=== PATIENT | female | born 1990 | race Caucasian/White ===

== ENCOUNTER 2017-03-24 15:23 | Inpatient (IN) | payer MEDICARE, BC ==
[2017-03-24 14:02] VITALS: BP 114/62; PULSE 65; RESP 16; TEMP 96.7; O2SAT 100
[~2017-03-24 15:23] MED LIST: ASPI1TAB7 PO; CARD240C6 PO; CLON.1T TD; CLON.2 PO; DOCU1CAP39 PO; LACTCAP7 PO; LISI-363 PO; LOES1TAB2 PO; MAGN400 PO; METO100T PO; MINO2.5 PO; OMEP20TA PO; ONDA4 PO; ONDANSETRON HCL 4 MG/2 ML VIAL IV PUSH ONE; PERC2.5T PO; PRED5 PO; PROPOFOL 200 MG/20 ML AMP IV ONE; ROPI0.25 PO; SODI453. PO; VITA20003 PO; VITA25TA5 PO
[2017-03-24] MEDS ORDERED: ESTROGENS CONJUGATED VAG CREA 15 APPL/30 GM TUBE ONE (17:13)
[2017-03-24] MEDS ORDERED: ceFAZolin 1,000 MG/NS 100 ML IV SCH ×2 (17:30)
[2017-03-24] MEDS ORDERED: ceFAZolin 1,000 MG/NS 100 ML IV ONE ×2 (17:45)
--- NOTE | 2017-03-24 17:59 | HHI.HP ---
HPI Chief Complaint Excessive uterine bleeding with hemoglobin at marketing operations consultant office 4.8 today renal failures s/p five kidney transplants Date Seen: Mar 24, 2017 Time Seen: 17:43 Travel History International Travel<30 Days: No Contact w/Intl Traveler<30Days: No Known Affected Area: No History of Present Illness HPI 27 yo swf G0 with 2 months of extremely heavy bleeding and clots. Prior to that , while on peritoneal dialysis she had over a year of amenorrhea. She has a history of CVA and is on eloquist and aspirin. Despite the placement of two progestin IUDs, we have not been able to slow down this bleeding. today's hgb was 4.8. Her current kidney has 10% function and she voids about 1500 cc daily and has hemodialysis twice weekly. She recent had extensive surgery on left leg to debride an infection and is wearing a bandage and brace. The brace can be removed for surgery. She has no fever, chills, nausea, vomiting or diarrhea. She is not in severe pain. She thinks the second IUD recently placed was also expelled. She is continuing to bleed heavily with clots. Sheis on bactrim every other day, valcyte and cresmemba for antibacterial, antiviral and antifungal prophylaxis. She has never had an abnormal pap or STD. She is not involved. She has graduated from [employer]. Para: 0 : 0 Last Menstrual Period: Mar 24, 2017 History Past Medical History Narrative Medical hypothyroidism hypertension GERD endstage renal failure history of CVA in 2012 hemodialysis dependent. history of chronic steroid therapy. Allergies-Medications (Allergen,Severity, Reaction): Coded Allergies: No Known Allergies (Verified , 10/23/14) Home Meds Reported Medications Sodium Polystyrene Sulfonate (Kayexalate) Pow3-5 Tsp PO DIRECTED 10/23/14 Ondansetron Hcl (Zofran 4 Mg Tab)4 Mg Tab4 Mg PO Q6 PRN (NAUSEA) 10/23/14 Ropinirole Hydrochloride (Ropinirole HCl)0.25 Mg Tab0.25 Mg PO DAILY 10/23/14 Lactobacillus (Probiotic) Cap1 Cap PO DAILY 10/23/14 Oxycodone W/Acetaminophen (Percocet 2.5/325)Oxycodone 2.5/325 Acetaminophen Tab1 Tab PO Q6H PRN (PAIN) 10/23/14 Prednisone (Deltasone 5 mg Tab)5 Mg Tab5 Mg PO DAILY 10/23/14 Pyridoxine Hcl (Vitamin B-6)Unknown Strength Tab1 Tab PO DAILY 10/23/14 Cholecalciferol (Vitamin D)2,000 Unit Tab2,000 Units PO DAILY 10/23/14 Norethin Acet & Estrad-Fe (Loestrin Fe 10/15)Unknown Strength Pack1 Tab PO DAILY 10/23/14 Docusate Sodium (Colace 100 Mg Cap)100 Mg [id number] Mg PO DAILY 10/23/14 Aspirin 81 mg Tab 81 Mg Tab81 Mg PO DAILY 10/23/14 Minoxidil (Loniten 2.5 Mg Tab)2.5 Mg Tab2.5 Mg PO BID 10/23/14 Lisinopril 20 mg 20 Mg Tab20 Mg PO DAILY 10/23/14 Clonidine 0.2 mg (Catapres 0.2 mg)0.2 Mg Tab1 Tab PO DAILY PRN (SYSTOLIC B/P > 170) 10/23/14 Metoprolol Tartrate 100 mg 100 Mg Gun297 Mg PO BID 10/23/14 Clonidine Hcl (Ppgdvcog-Oig-9)Unknown Strength Dis1 Patch TD WEEKLY WEEKLY ON Wednesdays10/23/14 Diltiazem CD 240 mg (Cardizem CD 240 mg)240 Mg/24 Cap2 Cap PO BID 10/23/14 Omeprazole 20 mg 20 Mg Tab20 Mg PO BID 04/30/11 Magnesium Oxide (Mag-Ox 400)400 Mg Feo547 Mg PO BID 04/30/11 Review of Systems General / Constitutional: No: Fever, Weight Gain, Chills, Other Eyes: No: Diploplia, Blurred Vision, Visual changes, Pain, Photophobia HENT: Lightheadedness Cardiovascular: Tachycardia Genitourinary: Menorrhagia Musculoskeletal: Limited ROM Skin: Dryness, Change in Pigmentation Physical Exam Narrative GENERAL: ashen, ovalles faced pleaseant young woman with low hemoglobin gums and nail bed pale SKIN: Warm and dry. HEAD: Normocephalic and atraumatic. EYES: No scleral icterus. No injection or drainage. ENT: No nasal drainage noted. Mucous membranes pink. Airway patent. NECK: Supple, trachea midline. No JVD. CARDIOVASCULAR: Regular rate and rhythm without murmurs, gallops, or rubs. RESPIRATORY: Breath sounds equal bilaterally. No accessory muscle use. BREASTS: Bilateral exam showed no masses , no retractions, no nipple discharge. many scars External Genitalia: intact and normal in appearance BUS normal cervix nullip with clots EXTREMITIES: bronze pigment BACK: Nontender without obvious deformity. No CVA tenderness. NEUROLOGICAL: Awake and alert. Motor and sensory grossly within normal limits. Five out of 5 muscle strength in all muscle groups. Normal speech. Data Data Vital Signs Reviewed: Yes Orders Estrogens Conjugated Vag Cream (Premarin (03/24/17 17:13) Hgb & Hct (03/24/17 17:00) Red Blood Cells (Rbc) (03/24/17 17:00) ^ Other Nursing Orders (03/24/17 17:00) Comprehensive Metabolic Panel (03/25/17 06:00) Act Partial Throm Time (Ptt) (03/25/17 06:00) Prothrombin Time / Inr (Pt) (03/25/17 06:00) Vital Signs (Adult) LIZZ.Q4H (03/24/17 17:00) ^ Other Nursing Orders (03/24/17 17:00) ^ Other Nursing Orders (03/24/17 17:00) ^ Other Nursing Orders (03/24/17 17:00) ^ Other Nursing Orders (03/24/17 17:00) Type And Screen (03/24/17 17:00) Diet Npo (03/24/17 Dinner) Cefazolin Inj (Ancef Inj) (03/24/17 17:30) Assessment/Plan Assessment and Plan transfuse now for D & C with [facility] hospitalist support (or shoe cobbler ) post op dialysis in . Ayala Espinoza MD Mar 24, 2017 17:59
[2017-03-24] MEDS ORDERED: LACTATED RINGER'S 1000 ML INJ 1,000 ML IV SCH ×2 (18:00→21:21)
[2017-03-24 18:40] VITALS: PULSE 61
[2017-03-24 18:50] LABS: AUTOMATED NEUTROPHIL # 2.3 TH/MM3 (1.8-7.7); BASOPHIL % 0.6 % (0.0-2.0); EOSINOPHIL % 0.1 % (0.0-4.0); LYMPH % 12.4 % (9.0-44.0); LYMPHOCYTE # 0.3 TH/MM3 (1.0-4.8); MEAN CELL VOLUME 98.2 FL (80.0-100.0); MEAN CORPUSCULAR HEMOGLOBIN 32.2 PG (27.0-34.0); MEAN CORPUSCULAR HGB CONC 32.8 % (32.0-36.0); MONO % 5.8 % (0.0-8.0); NEUT % 81.1 % (16.0-70.0); PLATELET COUNT 327 TH/MM3 (150-450); RED BLOOD COUNT 1.32 MIL/MM3 (4.00-5.30); RED CELL DISTRIBUTION WIDTH 23.2 % (11.6-17.2); WHITE BLOOD COUNT 2.8 TH/MM3 (4.0-11.0)
[2017-03-24 18:54] LABS: HEMO FLAGS AUTO DIFF
[2017-03-24 18:56] LABS: HEMATOCRIT 12.9 % (35.0-46.0)
[2017-03-24 19:34] LABS: OVALOCYTES 1+ (NORMAL); PLATELET ESTIMATE SMEAR NORMAL (NORMAL); PLATELET MORPHOLOGY NORMAL (NORMAL); SCAN/DIFF AUTO DIFF CONFIRMED
[2017-03-24 19:37] VITALS: BP 107/56; PULSE 61; RESP 16; TEMP 97.8; O2SAT 100
[2017-03-24 19:49] VITALS: BP 106/57; PULSE 60; RESP 16; TEMP 97.9; O2SAT 100
[2017-03-24] MEDS ORDERED: VANCOMYCIN HCL 1000 MG VIAL OTHER ONE (20:52)
--- NOTE | 2017-03-24 21:29 | PD.OP ---
Operative Report Date of Surgery: Mar 24, 2017 Preoperative Diagnosis: menorrhagia renal failure anticoagulation Postoperative Diagnosis: same with submucosal fibroids Procedure: D & D Bienvenido Guzmán Anesthesia: get Surgeon: Ayala Espinoza Metal Tank Builder(s): [id number] Operation and Findings: Ayala Cisneros MD Mar 24, 2017 21:29
[2017-03-24] MEDS ORDERED: SODIUM CHLORIDE 0.9% FLUSH 10 ML FLUSH IV FLUSH PRN (21:30)
[2017-03-24] MEDS ORDERED: ACETAMINOPHEN/HYDROcodone 325 MG/5 MG TAB PO PRN (21:30)
[2017-03-24] MEDS ORDERED: LORazepam 0.5 MG TAB PO PRN (21:30)
[2017-03-24] MEDS ORDERED: ONDANSETRON HCL 4 MG/2 ML VIAL IVP PRN (21:30)
[2017-03-24] MEDS ORDERED: HYDROCORTISONE SOD SUCCINATE 100 MG VIAL IV PUSH ONE (21:30)
[2017-03-24] MEDS ORDERED: diphenhydrAMINE HCL 25 MG CAP PO PRN (21:30)
[2017-03-24] MEDS ORDERED: fentaNYL CITRATE 250 MCG/5 ML AMP ONE (21:35)
[2017-03-24] MEDS ORDERED: MIDAZOLAM HCL 2 MG/2 ML VIAL ONE (21:35)
[2017-03-24] MEDS ORDERED: VANCOMYCIN 1,000 MG/NS 250 ML IV ONE ×2 (21:53)
[2017-03-24] MEDS ORDERED: DO NOT ADM ANY ANTICOAGULANT DRUGS PRN (22:30)
[2017-03-24] MEDS ORDERED: MORPHINE SULFATE 4 MG/ML INJ ONE (22:41)
--- NOTE | 2017-03-24 23:36 | PD.CONS ---
HPI Service Critical Care Medicine Consult Requested By Primary Care Physician Alcides Monzon MD (Paul) History of Present Illness 27-year-old female G0 with 2 months history of extremely heavy bleeding and clots. She has a history of CVA and is on Eliquis and aspirin. Despite the placement of two progestin IUDs, there was no effect to slow down this bleeding. Yesterday her hemoglobin was 4.8. So she was taken emergently to operating room for hysteroscopy with endometrial ablation/Novasure. Due to severe anemia and high risk of bleed she is admitted to ICU postoperatively for type monitoring of her H&H and vital signs. Review of Systems Constitutional: DENIES: Diaphoretic episodes, Fatigue, Fever, Weight gain, Weight loss, Chills, Dizziness, Change in appetite, Night Sweats Endocrine: COMPLAINS OF: Abnorml menstrual pattern, DENIES: Heat/cold intolerance, Polydipsia, Polyuria, Polyphagia Eyes: DENIES: Blurred vision, Diplopia, Eye inflammation, Eye pain, Vision loss , Photosensitivity, Double Vision Ears, nose, mouth, throat: DENIES: Tinnitus, Hearing loss, Vertigo, Nasal discharge, Oral lesions, Throat pain, Hoarseness, Ear Pain, Running Nose, Epistaxis, Sinus Pain, Toothache, Odynophagia Respiratory: DENIES: Apneas, Cough, Snoring, Wheezing, Hemoptysis, Sputum production, Shortness of breath Cardiovascular: DENIES: Chest pain, Palpitations, Syncope, Dyspnea on Exertion , PND, Lower Extremity Edema, Orthopnea, Claudication Gastrointestinal: COMPLAINS OF: Abdominal pain, DENIES: Black stools, Bloody stools, Constipation, Diarrhea, Nausea, Vomiting, Difficulty Swallowing, Anorexia Genitourinary: COMPLAINS OF: Abnormal vaginal bleeding, DENIES: Dysmenorrhea, Dyspareunia, Sexual dysfunction, Urinary frequency, Urinary incontinence, Urgency, Hematuria, Dysuria, Nocturia, Vaginal discharge Musculoskeletal: DENIES: Joint pain, Muscle aches, Stiffness, Joint Swelling, Back pain, Neck pain Integumentary: DENIES: Abnormal pigmentation, Pruritus, Rash, Nail changes, Breast masses, Breast skin changes, Nipple discharge Hematologic/lymphatic: DENIES: Bruising, Lymphadenopathy Immunologic/allergic: DENIES: Eczema, Urticaria Neurologic: DENIES: Abnormal gait, Headache, Localized weakness, Paresthesias, Seizures, Speech Problems, Tremor, Poor Balance Psychiatric: DENIES: Anxiety, Confusion, Mood changes, Depression, Hallucinations, Agitation, Suicidal Ideation, Homicidal Ideation, Delusions Past Family Social History Allergies: Coded Allergies: No Known Allergies (Verified , 10/23/14) Past Medical History Hypothyroidism Hypertension GERD Endstage renal failure history of CVA in 2013 Hemodialysis dependent. History of chronic steroid therapy. Past Surgical History Multiple renal transplants Reported Medications Reported Meds & Active Scripts Active Reported Kayexalate (Sodium Polystyrene Sulfonate) Pow 3-5 Tsp PO DIRECTED Zofran 4 Mg Tab (Ondansetron Hcl) 4 Mg Tab 4 Mg PO Q6 PRN Ropinirole HCl (Ropinirole Hydrochloride) 0.25 Mg Tab 0.25 Mg PO DAILY Probiotic (Lactobacillus) Cap 1 Cap PO DAILY Percocet 2.5/325 (Oxycodone/Acetaminophen) Oxycodone 2.5/325 Acetaminophen Tab 1 Tab PO Q6H PRN Deltasone 5 mg Tab (Prednisone) 5 Mg Tab 5 Mg PO DAILY Vitamin B-6 (Pyridoxine Hcl) Unknown Strength Tab 1 Tab PO DAILY Vitamin D (Cholecalciferol) 2,000 Unit Tab 2,000 Units PO DAILY Loestrin Fe 10/15 (Ethinyl Estradiol/Norethindron/Iron) Unknown Strength Pack 1 Tab PO DAILY Colace 100 Mg Cap (Docusate Sodium) 100 Mg Cap 100 Mg PO DAILY Aspirin 81 mg Tab (Aspirin) 81 Mg Tab 81 Mg PO DAILY Loniten 2.5 Mg Tab (Minoxidil) 2.5 Mg Tab 2.5 Mg PO BID Lisinopril 20 mg (Lisinopril) 20 Mg Tab 20 Mg PO DAILY Catapres 0.2 mg (Clonidine HCl) 0.2 Mg Tab 1 Tab PO DAILY PRN Metoprolol Tartrate 100 Mg Tab 100 Mg PO BID Uuobprem-Hwq-1 (Clonidine Hcl) Unknown Strength Dis 1 Patch TD WEEKLY WEEKLY ON WEDNESDAYS Cardizem CD 240 mg (Diltiazem CD 240 mg) 240 Mg/24 Cap 2 Cap PO BID Omeprazole 20 mg (Omeprazole) 20 Mg Tab 20 Mg PO BID Magnesium Oxide 400 Mg Tab 400 Mg PO BID Active Ordered Medications Current Medications Medications (Trade) Dose Ordered Sig/Mega Route PRN Reason Start Time Stop Time Status Last Admin Dose Admin Lactated Ringer's (Lr 1000 ml Inj) 1,000 ml @ 75 mls/hr [id number] IV 03/24/17 21:21 03/24/17 23:30 Sodium Chloride (NS Flush) 2 ml UNSCH PRN IV FLUSH FLUSH AFTER USING IV ACCESS 03/24/17 21:30 Sodium Chloride (NS Flush) 2 ml BID IV FLUSH 03/25/17 09:00 Acetaminophen/ Hydrocodone Bitart ([place] 5-325 Mg) 1 tab Q4H PRN PO PAIN SCALE 1 TO 5 03/24/17 21:30 Diphenhydramine HCl (Benadryl) 25 mg Q6H PRN PO ITCHING 03/24/17 21:30 Ondansetron HCl (Zofran Inj) 4 mg Q6H PRN IVP NAUSEA OR VOMITING 03/24/17 21:30 Lorazepam (Ativan) 0.25 mg Q8H PRN PO ANXIETY 03/24/17 21:30 Miscellaneous Information ALL NURSING DEPARTME... UNSCH PRN .XX SEE LABEL COMMENTS 03/24/17 22:30 03/25/17 22:29 Family History No history of cancer or premature cardiac diseases Social History Negative for smoking, alcohol or illicit drug abuse Physical Exam Vital Signs Vital Signs Date Time Temp Pulse Resp B/P Pulse Ox O2 Delivery O2 Flow Rate FiO2 03/24/17 23:30 58 16 135/71 100 03/24/17 23:00 60 16 131/77 100 03/24/17 22:30 61 14 133/72 100 03/24/17 22:15 57 12 141/79 100 03/24/17 21:45 59 12 130/75 100 03/24/17 21:30 97.4 60 12 136/79 100 Nasal Cannula 3 03/24/17 21:30 97.4 60 13 136/79 100 03/24/17 19:49 97.9 60 16 106/57 100 03/24/17 19:37 97.8 61 16 107/56 100 03/24/17 18:40 97.9 60 24 112/67 100 03/24/17 18:40 Room Air 03/24/17 18:40 61 03/24/17 14:02 96.7 65 16 114/62 100 Physical Exam GENERAL: Well-nourished, well-developed patient. SKIN: Warm and dry. HEAD: Normocephalic. EYES: No scleral icterus. No injection or drainage. NECK: Supple, trachea midline. No JVD or lymphadenopathy. CARDIOVASCULAR: Regular rate and rhythm without murmurs, gallops, or rubs. RESPIRATORY: Breath sounds equal bilaterally. No accessory muscle use. GASTROINTESTINAL: Abdomen soft, non-tender, nondistended. MUSCULOSKELETAL: No cyanosis, or edema. BACK: Nontender without obvious deformity. No CVA tenderness. EXTREMITIES: Laboratory Laboratory Tests Test 03/24/17 18:09 White Blood Count 2.8 Red Blood Count 1.32 Hemoglobin 4.2 Hematocrit 12.9 Mean Corpuscular Volume 98.2 Mean Corpuscular Hemoglobin 32.2 Mean Corpuscular Hemoglobin 32.8 Concent Red Cell Distribution Width 23.2 Platelet Count 327 Mean Platelet Volume 6.9 Neutrophils (%) (Auto) 81.1 Lymphocytes (%) (Auto) 12.4 Monocytes (%) (Auto) 5.8 Eosinophils (%) (Auto) 0.1 Basophils (%) (Auto) 0.6 Neutrophils # (Auto) 2.3 Lymphocytes # (Auto) 0.3 Monocytes # (Auto) 0.2 Eosinophils # (Auto) 0.0 Basophils # (Auto) 0.0 CBC Comment AUTO DIFF Differential Comment AUTO DIFF CONFIRMED Platelet Estimate NORMAL Platelet Morphology Comment NORMAL Ovalocytes 1+ Ferritin 816 Thyroid Stimulating Hormone 1.880 3rd Gen Blood Type O NEGATIVE Antibody Screen NEGATIVE Crossmatch Leukocyte-Reduced Red Blood Cells Blood Bank Comment Result Diagram: 03/24/17 1809 Assessment and Plan Assessment and Plan Metrorrhagia - Status post hysteroscopy, endometrial ablation - Monitor H&H - Admit to ICU - Monitor telemetry - Management per RESEARCH AND DEVELOPMENT SPECIALIST Severe anemia - Due to blood loss - Appropriate response to blood transfusion - Monitor H&H - Transfuse for hemoglobin less than 7 Coagulopathy - Hold aspirin until requests - Resume (history of CVA) when okay with surgeon End-stage renal disease - Status post multiple renal transplants - Hemodialysis dependent - HD per nephrology DVT GI prophylaxis - Teds SCDs - No pharmacological DVT prophylaxis due to hemorrhagic shock - Pepcid Level II Sriram Fontaine MD Mar 24, 2017 23:36
[2017-03-25] MEDS ORDERED: MORPHINE SULFATE 4 MG/ML INJ ONE (00:48)
[2017-03-25 02:30] VITALS: BP 174/86; PULSE 58; RESP 23; TEMP 97.9; O2SAT 98
[2017-03-25 04:00] VITALS: BP 174/86; PULSE 58
[2017-03-25 04:20] LABS: AUTOMATED NEUTROPHIL # 1.7 TH/MM3 (1.8-7.7); BASOPHIL % 0.4 % (0.0-2.0); HEMATOCRIT 24.8 % (35.0-46.0); LYMPH % 7.9 % (9.0-44.0); LYMPHOCYTE # 0.1 TH/MM3 (1.0-4.8); MEAN CORPUSCULAR HEMOGLOBIN 29.3 PG (27.0-34.0); MEAN CORPUSCULAR HGB CONC 33.3 % (32.0-36.0); MONO % 1.9 % (0.0-8.0); NEUT % 89.8 % (16.0-70.0); PLATELET COUNT 222 TH/MM3 (150-450); RED BLOOD COUNT 2.82 MIL/MM3 (4.00-5.30); RED CELL DISTRIBUTION WIDTH 18.7 % (11.6-17.2); WHITE BLOOD COUNT 1.9 TH/MM3 (4.0-11.0)
[2017-03-25 04:33] LABS: APTT (PATIENT) 34.3 SEC (24.3-30.1); INTERNATIONAL NORMALIZED RATIO 1.1 RATIO; PROTHROMBIN TIME - PATIENT 12.1 SEC (9.8-11.6)
[2017-03-25 04:35] LABS: HEMO FLAGS AUTO DIFF
[2017-03-25 04:59] LABS: ALKALINE PHOSPHATASE 109 U/L (45-117); ALT (GPT) 9 U/L (10-53); ANION GAP 11 MEQ/L (5-15); AST (GOT) 13 U/L (15-37); BICARBONATE 24.9 MEQ/L (21.0-32.0); BLOOD UREA NITROGEN 42 MG/DL (7-18); CHLORIDE 98 MEQ/L (98-107); GLOMERULAR FILTRATION RATE 7 ML/MIN (>89); SODIUM (NA) 134 MEQ/L (136-145); TOTAL BILIRUBIN ADULT 0.8 MG/DL (0.2-1.0)
[2017-03-25 05:10] LABS: POTASSIUM 6.7 MEQ/L (3.5-5.1)
[2017-03-25 06:00] VITALS: PULSE 63
[2017-03-25 07:50] LABS: BANDS 4 % (0-6); NEUTROPHIL # MANUAL DIFF 1.7 TH/MM3 (1.8-7.7); OVALOCYTES 1+ (NORMAL); PLATELET ESTIMATE SMEAR NORMAL (NORMAL); PLATELET MORPHOLOGY NORMAL (NORMAL); POLYS (SEG NEUTROPHILS) 88 % (16-70); SCAN/DIFF FINAL DIFF MANUAL; WBC DIFF SAMPLE 100
[2017-03-25 08:00] VITALS: BP 144/82; PULSE 52; PULSE 55; RESP 14; TEMP 97.6; O2SAT 100
--- NOTE | 2017-03-25 08:20 | HHI.OB ---
Subjective Post Operative Day: 1 Remarks s/p exam under anesthesia, D&C & ablation in OR for severe menorrhagia, Hgb 4.8 doing well this AM, no complaints, Voiding, no VB, denies SOB, denies pain, denies fatigue or dizziness desire discharge to home Objective Vitals/I&O Vital Signs Date Time Temp Pulse Resp B/P Pulse Ox O2 Delivery O2 Flow Rate FiO2 03/25/17 06:00 63 03/25/17 04:00 58 03/25/17 04:00 174/86 03/25/17 02:30 97.9 58 23 174/86 98 03/25/17 02:30 58 03/25/17 02:00 64 18 141/81 100 03/25/17 01:00 63 21 147/79 100 03/25/17 00:54 16 03/25/17 00:54 16 03/25/17 00:00 60 21 138/82 100 03/24/17 23:30 58 16 135/71 100 03/24/17 23:00 60 16 131/77 100 03/24/17 22:30 61 14 133/72 100 03/24/17 22:15 57 12 141/79 100 03/24/17 21:45 59 12 130/75 100 03/24/17 21:30 97.4 60 12 136/79 100 Nasal Cannula 3 03/24/17 21:30 97.4 60 13 136/79 100 03/24/17 19:49 97.9 60 16 106/57 100 03/24/17 19:37 97.8 61 16 107/56 100 03/24/17 18:40 97.9 60 24 112/67 100 03/24/17 18:40 Room Air 03/24/17 18:40 61 03/24/17 14:02 96.7 65 16 114/62 100 Intake & Output 03/25/17 03/25/17 07:00 19:00 Intake Total 912 ml Output Total 50 ml Balance 862 ml Intake IV Total 212 ml Other 700 ml Output Estimated Blood Loss 50 ml # Voids 2 # Bowel Movements 0 Result Diagram: 03/25/17 0406 03/25/17 0411 Objective Remarks GENERAL: Well-nourished, well-developed patient. CARDIOVASCULAR: Regular rate and rhythm without murmurs, gallops, or rubs. RESPIRATORY: Breath sounds equal bilaterally. No accessory muscle use. ABDOMEN/GI: Abdomen soft, non-tender, bowel sounds present. Incision: Clean, dry and intact. Fundus: Firm, non-tender at umbilicus. GENITOURINARY: Pad is dry. EXTREMITIES: No cyanosis or edema, non-tender, without signs of DVT. Medications and IVs Current Medications Medications (Trade) Dose Ordered Sig/Mega Route Start Time Stop Time Status Last Admin (Lr 1000 ml Inj) 1,000 ml @ 75 mls/hr [id number] IV 03/24/17 21:21 03/24/17 23:30 (NS Flush) 2 ml UNSCH PRN IV FLUSH 03/24/17 21:30 (NS Flush) 2 ml BID IV FLUSH 03/25/17 09:00 ([place] 5-325 Mg) 1 tab Q4H PRN PO 03/24/17 21:30 (Benadryl) 25 mg Q6H PRN PO 03/24/17 21:30 (Zofran Inj) 4 mg Q6H PRN IVP 03/24/17 21:30 (Ativan) 0.25 mg Q8H PRN PO 03/24/17 21:30 Miscellaneous Information ALL NURSING DEPARTME... UNSCH PRN .XX 03/24/17 22:30 03/25/17 22:29 Assessment/Plan Assessment and Plan POD#1 s/p ablation in OR, pt of Dr. Espinoza's, I am covering this AM pt's H/H improved s/p transfusion 4units, pt has hyperkalemia this AM but this is chronic; is scheduled for dialysis tmrw AM all meds were held overnight including home antihypertensives; BP up this AM but suspect this will improve once pt takes home meds; no symptoms, ok to d/c with home meds to be taken 9a today reviewed postop precautions will see Dr. Espinoza in office Tuesday for postop care & continued management bleeding precautions call service over wknd if any concerns Discharge Planning today Sharifa Candelario MD Mar 25, 2017 08:20
--- NOTE | 2017-03-25 08:24 | HHI.DS ---
Discharge Summary Admission Date Mar 24, 2017 at 16:21 Discharge Date: Mar 25, 2017 Admitting Diagnosis Menorrhagia, anemia (1) Menorrhagia (2) Anemia Diagnosis: Principal Procedures D&C, novasure ablation Brief History see Dr. Espinoza's H&P CBC/BMP: 03/25/17 0406 03/25/17 0411 Significant Findings Laboratory Tests Test 03/24/17 03/25/17 03/25/17 18:09 04:06 04:11 White Blood Count 2.8 TH/MM3 1.9 TH/MM3 (4.0-11.0) (4.0-11.0) Red Blood Count 1.32 MIL/MM3 2.82 MIL/MM3 (4.00-5.30) (4.00-5.30) Hemoglobin 4.2 GM/DL 8.3 GM/DL (11.6-15.3) (11.6-15.3) Hematocrit 12.9 % 24.8 % (35.0-46.0) (35.0-46.0) Red Cell Distribution Width 23.2 % 18.7 % (11.6-17.2) (11.6-17.2) Mean Platelet Volume 6.9 FL 6.7 FL (7.0-11.0) (7.0-11.0) Neutrophils (%) (Auto) 81.1 % 89.8 % (16.0-70.0) (16.0-70.0) Lymphocytes # (Auto) 0.3 TH/MM3 0.1 TH/MM3 (1.0-4.8) (1.0-4.8) Ovalocytes 1+ (NORMAL) 1+ (NORMAL) Ferritin 816 NG/ML (8-252) Lymphocytes (%) (Auto) 7.9 % (9.0-44.0) Neutrophils # (Auto) 1.7 TH/MM3 (1.8-7.7) Neutrophils % (Manual) 88 % (16-70) Lymphocytes % 5 % (9-44) Neutrophils # (Manual) 1.7 TH/MM3 (1.8-7.7) Prothrombin Time 12.1 SEC (9.8-11.6) Activated Partial 34.3 SEC Thromboplast Time (24.3-30.1) Sodium Level 134 MEQ/L (136-145) Potassium Level 6.7 MEQ/L (3.5-5.1) Blood Urea Nitrogen 42 MG/DL (7-18) Creatinine 7.30 MG/DL (0.50-1.00) Estimat Glomerular Filtration 7 ML/MIN (>89) Rate Random Glucose 111 MG/DL (74-106) Calcium Level 7.9 MG/DL (8.5-10.1) Aspartate Amino Transf 13 U/L (15-37) (AST/SGOT) Alanine Aminotransferase 9 U/L (10-53) (ALT/SGPT) Total Protein 5.4 GM/DL (6.4-8.2) Albumin 3.1 GM/DL (3.4-5.0) PE at Discharge resting in bed, NAD CTA b/l no wheeze RRR no murmur abd soft NTND no bleeding on pad Hospital Course Pt had severe anemia, menorrhagia, had failed prior medical management. Had emergency D&C & ablation with Dr. Espinoza. Due to chronic health conditions pt was placed in SICU postop, did well overnight, on POD#1 voiding, ambulating, no pain, no bleeding. Discharged to home with office f/u in 5d and plan for dialysis tmrw. Pt Condition on Discharge: Good Discharge Disposition: Discharge Home Discharge Instructions DIET: Follow Instructions for: Renal Failure Diet Activities you can perform: Partial Weight Bearing, Pelvic Rest Activities to avoid: Driving for 24 hrs, Strenuous Activity, Sexual Activity Sharifa Candelario MD Mar 25, 2017 08:24
[2017-03-25] MEDS ORDERED: SODIUM CHLORIDE 0.9% FLUSH 10 ML FLUSH IV FLUSH SCH (09:00)
== END 2017-03-25 09:11 | disposition home or self-care (01) | DRG 742 ==
LOC: HOCA 16:21 → N03B 21:35
PROVIDERS: ADMIT Obstetrics & Gynecology; ATTEND Obstetrics & Gynecology
PROC: 0U5B8ZZ Destruction of Endometrium, Via Natural or Artificial Opening Endoscopic (ICD-10-PCS; 2017-03-24)
PROC: 0UDB8ZZ Extraction of Endometrium, Via Natural or Artificial Opening Endoscopic (ICD-10-PCS; 2017-03-24)
PROC: 30253N1 (ICD-10-PCS; principal; 2017-03-24 20:17)
DX: N92.0 Excessive and frequent menstruation with regular cycle (principal); N18.6 End stage renal disease; D68.9 Coagulation defect, unspecified; I12.0 Hypertensive chronic kidney disease with stage 5 chronic kidney disease or end stage renal disease; D62 Acute posthemorrhagic anemia; D25.0 Submucous leiomyoma of uterus; E03.9 Hypothyroidism, unspecified; E87.6 Hypokalemia; K21.9 Gastro-esophageal reflux disease without esophagitis; Z79.52 Long term (current) use of systemic steroids; Z86.73 Personal history of transient ischemic attack (TIA), and cerebral infarction without residual deficits; Z99.2 Dependence on renal dialysis
CPT/HCPCS: 36430; 80053; 82728; 84443; 85007; 85025; 85027; 85610; 85730; 86850; 86900; 86901; 86920; 88305; J1720; J2250; J2270; J2405; J3010; J3370; J7050; J7120; P9016

== ENCOUNTER 2017-04-15 14:53 | Inpatient (IN) | payer MEDICARE, BC ==
[2017-04-15] VITALS (7 sets, daily range): BP systolic 85–110; BP diastolic 50–57; PULSE 84–93; RESP 16–20; TEMP 98.3–99.2; O2SAT 94–100
[~2017-04-15] VITALS: Ht 170.2 cm; Wt 72.1 kg
[~2017-04-15 14:53] MED LIST changes: -ONDANSETRON HCL 4 MG/2 ML VIAL IV PUSH ONE; -PROPOFOL 200 MG/20 ML AMP IV ONE
[2017-04-15] MEDS ORDERED: ONDANSETRON HCL 4 MG/2 ML VIAL IV PUSH ONE (16:30)
[2017-04-15] MEDS ORDERED: SODIUM CHLOR 0.9% 1000 ML INJ 1,000 ML IV SCH ×2 (16:30→18:46)
--- NOTE | 2017-04-15 16:42 | PD.CONS ---
HPI Chief Complaint 48 hours fever, malaise, bloody discharge, diarrhea and pelvic cramping--2 weeks s/p endometrial ablation chronic renal failure s/p renal transplant x 5 recent severe menorrhagia in part due to eloquis with Hgb <5 and need for transfusion and ablation chronic immunosuppression Date Seen: Apr 15, 2017 Travel History International Travel<30 Days: No Contact w/Intl Traveler<30Days: No Known Affected Area: No History of Present Illness HPI Shilpa is a 27 yo swf G0 well known to me. She has a chronic renal condition that caused early renal failure in her teens. Has had transplant x 5. Has had issues of chronic immunosuppresion, including rapid development of pneumonia and ARDS from a cold; joint sepsis and recent left knee debridement, CVA and need for chronic anticoagulation and dialysis twice weekly in [place]. Earlier this month, she called with extremely heavily bleeding despite placement of mirena IUD. This was so profound she bled to a hgb< 5 and required ablation and transfusion. She did well the first two weeks and then developed the above symptoms two days ago. We started a po antibitoic (I believe augmentin) but her symptoms progressed and she presents to ED today after dialysis. Para: 0 : 0 History Past Medical History Narrative Medical medical history as per HPI, see previous hospitalization this month for her full medication list. Past Surgical History Narrative Surgical transplant x 5 left knee surgery x 2 endometrial ablation this month Family History Narrative Family History possible genetic origin of her renal failure -- first in her family Family History: Negative Social History Alcohol Use: No Tobacco Use: No Substance Abuse: No Allergies-Medications (Allergen,Severity, Reaction): Coded Allergies: Gabapentin (Verified Allergy, Severe, 04/15/17) muscle spasms Home Meds Reported Medications Sodium Polystyrene Sulfonate (Kayexalate) Pow3-5 Tsp PO DIRECTED 10/23/14 Ondansetron Hcl (Zofran 4 Mg Tab)4 Mg Tab4 Mg PO Q6 PRN (NAUSEA) 10/23/14 Ropinirole Hydrochloride (Ropinirole HCl)0.25 Mg Tab0.25 Mg PO DAILY 10/23/14 Lactobacillus (Probiotic) Cap1 Cap PO DAILY 10/23/14 Oxycodone W/Acetaminophen (Percocet 2.5/325)Oxycodone 2.5/325 Acetaminophen Tab1 Tab PO Q6H PRN (PAIN) 10/23/14 Prednisone (Deltasone 5 mg Tab)5 Mg Tab5 Mg PO DAILY 10/23/14 Pyridoxine Hcl (Vitamin B-6)Unknown Strength Tab1 Tab PO DAILY 10/23/14 Cholecalciferol (Vitamin D)2,000 Unit Tab2,000 Units PO DAILY 10/23/14 Norethin Acet & Estrad-Fe (Loestrin Fe 10/15)Unknown Strength Pack1 Tab PO DAILY 10/23/14 Docusate Sodium (Colace 100 Mg Cap)100 Mg [id number] Mg PO DAILY 10/23/14 Aspirin 81 mg Tab 81 Mg Tab81 Mg PO DAILY 10/23/14 Minoxidil (Loniten 2.5 Mg Tab)2.5 Mg Tab2.5 Mg PO BID 10/23/14 Lisinopril 20 mg 20 Mg Tab20 Mg PO DAILY 10/23/14 Clonidine 0.2 mg (Catapres 0.2 mg)0.2 Mg Tab1 Tab PO DAILY PRN (SYSTOLIC B/P > 170) 10/23/14 Metoprolol Tartrate 100 mg 100 Mg [id number] Mg PO BID 10/23/14 Clonidine Hcl ([id number])Unknown Strength Dis1 Patch TD WEEKLY WEEKLY ON Wednesdays10/23/14 Diltiazem CD 240 mg (Cardizem CD 240 mg)240 Mg/24 Cap2 Cap PO BID 10/23/14 Omeprazole 20 mg 20 Mg Tab20 Mg PO BID 04/30/11 Magnesium Oxide (Mag-Ox 400)400 Mg [id number] Mg PO BID 04/30/11 Review of Systems General / Constitutional: Chills HENT: Headaches Gastrointestinal: Nausea, Abdominal Pain, Loss of Appetite Genitourinary: Decreased Urinary Output (chronic oliguria), Pelvic Pain, Discharge Musculoskeletal: Other (recovering from left knee debridement) Skin: Other (gunn color, cushinoid ) Psychiatric: Anxiety Physical Exam Vital Signs Date Time Temp Pulse Resp B/P Pulse Ox O2 Delivery O2 Flow Rate FiO2 04/15/17 16:25 99.2 88 20 87/54 100 Room Air 04/15/17 15:52 16 04/15/17 14:56 98.3 87 17 110/57 100 Narrative GENERAL: ill appearing, gunn color chipmonk cheeks of steroid use SKIN: Warm and dry. HEAD: Normocephalic and atraumatic. EYES: No scleral icterus. No injection or drainage. ENT: No nasal drainage noted. Mucous membranes pink. Airway patent. NECK: Supple, trachea midline. No JVD. CARDIOVASCULAR: Regular rate and rhythm without murmurs, gallops, or rubs. RESPIRATORY: Breath sounds equal bilaterally. No accessory muscle use. ABDOMEN/GI: Abdomen soft, non-tender, bowel sounds present, no rebound, no guarding tender above mons GENITOURINARY: External Genitalia: intact and normal in appearance mucus/blood discharge from cervix mild CMT EXTREMITIES: No cyanosis or edema. BACK: Nontender without obvious deformity. No CVA tenderness. NEUROLOGICAL: Awake and alert. Motor and sensory grossly within normal limits. Five out of 5 muscle strength in all muscle groups. Normal speech. Data Data Orders Complete Blood Count With Diff (04/15/17 16:14) Comprehensive Metabolic Panel (04/15/17 16:14) Blood Culture (04/15/17 16:14) Urinalysis - C+S If Indicated (04/15/17 16:14) Iv Access Insert/Monitor (04/15/17 16:14) Ecg Monitoring (04/15/17 16:14) Oximetry (04/15/17 16:14) Mri Pelvis W/O Contrast (04/15/17 ) Ondansetron Inj (Zofran Inj) (04/15/17 16:30) Sodium Chlor 0.9% 1000 Ml Inj (Ns 1000 M (04/15/17 16:30) MDM Narrative Course / MDM Impression: clinical symptoms of sepsis in immunosuppressed girl with renal failure and recent surgery etiology could be post operative endometritis, cystitis, joint infection, c difficile.... discussed with Dr. Cifuentes and will have admitted to our pilates coordinator with ID consult and emperic antibiotics (check for cdiff) MRI to assess uterus for endometritis/myometritis maintain steroids and anticoagulation will see tomorrow available for questions at [phone] Ayala Espinoza MD Apr 15, 2017 16:42
--- NOTE | 2017-04-15 16:44 | PD ---
HPI . 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 She is 2 weeks post- op of endometrial ablation for severe menorrhagia and was told to come to the ED by her wood boring machine operator Dr. Espinoza for possible post-operative endometritis . Patient reports she has been having the symptoms for a couple of days. Pain is in her lower abdomen, it is constant and rates it as a 6/10. Unable to characterize the pain. No known alleviating or aggravating factors. Fevers also started a few days ago, approximate Tmax of 102. Tylenol has helped the fever. She has also had associated nausea, no vomiting. No relief from Zofran. She has had no appetite. Reports diarrhea for a few days, about 2-3 episodes per day. No blood in the stool. Reports vaginal bleeding that is "mucosy" and vaginal discharge. She denies any chest pain but reports feeling like her heart is racing. No shortness of breath. Admits to some dysuria. She was last dialyzed this morning. PFSH Past Medical History Hx Anticoagulant Therapy: Yes Anemia: Yes Heart Rhythm Problems: Yes (irregular rhythm ) Cardiovascular Problems: Yes Cerebrovascular Accident: Yes Dialysis: Yes (dialysis fistula in left arm ) Deep Vein Thrombosis: Yes (STATES THAT SHE MAY HAVE ONE IN HER LEFT ARM.) Hypertension: Yes Immune Disorder: Yes Implanted Vascular Access Dvce: Yes (vascath left chest, power port right chest ) Immunizations Current: Yes Pneumonia: Yes (x2) Renal Failure: Yes Seizures: Yes (seizure 3 years ago ) Thyroid Disease: Yes (parathyroid removed ) ?: Not Past Surgical History Genitourinary Surgery: Yes (kidney transplantx5) Gynecologic Surgery: Yes (ablation x 2 wks ago) Oral Surgery: Yes Social History Alcohol Use: No Tobacco Use: No Substance Use: No Allergies-Medications (Allergen,Severity, Reaction): Coded Allergies: Gabapentin (Verified Allergy, Severe, 04/15/17) muscle spasms Reported Meds & Prescriptions Reported Meds & Active Scripts Active Reported Clonidine (Clonidine HCl) 0.1 Mg Tab 0.1 Mg PO BID PRN Multaq (Dronedarone) 400 Mg Tab 400 Mg PO BID Macrobid (Nitrofurantoin Monoh/Nitrofur Macro) 100 Mg Cap 100 Mg PO Q12HR 7 Days Percocet (Oxycodone-Acetaminophen) 5-325 mg Tab 1-2 Tab PO Q6H PRN Zofran (Ondansetron HCl) 4 Mg Tab 4 Mg PO Q12HR PRN Colace (Docusate Sodium) 100 Mg Capsule 100 Mg PO DAILY Vitamin D-3 (Cholecalciferol) 2,000 Unit Tab 2,000 Units PO DAILY Aspirin Adult Low Strength (Aspirin) 81 Mg Tabdr 81 Mg PO DAILY Review of Systems General / Constitutional: Positive: Fever, Chills, Other (Malaise) HENT: No: Headaches, Congestion Cardiovascular: No: Chest Pain or Discomfort, Edema Respiratory: No: Shortness of Breath, Wheezing Gastrointestinal: Positive: Nausea, Diarrhea, Abdominal Pain, No: Vomiting Genitourinary: Positive: Dysuria Physical Exam Narrative GENERAL: Awake and alert female in no acute distress. Very lethargic. SKIN: Focused skin assessment warm/dry. HEAD: Atraumatic. Normocephalic. Gandhi facies. EYES: Pupils equal and round. No scleral icterus. No injection or drainage. ENT: No nasal bleeding or discharge. Mucous membranes pink and moist. NECK: Trachea midline. Neck is supple. CARDIOVASCULAR: Regular rate and rhythm. 3/6 flow murmur. RESPIRATORY: No accessory muscle use. Clear to auscultation. Breath sounds equal bilaterally. No wheezing. GASTROINTESTINAL: Abdomen is soft and non-distended. Tender lower abdomen, voluntary guarding. MUSCULOSKELETAL: No clubbing. No cyanosis. No edema. Left knee has a large midline lesion from recent knee surgery. NEUROLOGICAL: Awake and alert. No obvious cranial nerve deficits. Motor grossly within normal limits. Normal speech. PSYCHIATRIC: Appropriate mood and affect; insight and judgment normal. Data Data Last Documented VS Vital Signs Date Time Temp Pulse Resp B/P Pulse Ox O2 Delivery O2 Flow Rate FiO2 04/15/17 17:36 86 16 98/52 100 Room Air 04/15/17 16:25 99.2 Orders Complete Blood Count With Diff (04/15/17 16:14) Comprehensive Metabolic Panel (04/15/17 16:14) Blood Culture (04/15/17 16:14) Urinalysis - C+S If Indicated (04/15/17 16:14) Iv Access Insert/Monitor (04/15/17 16:14) Ecg Monitoring (04/15/17 16:14) Oximetry (04/15/17 16:14) Mri Pelvis W/O Contrast (04/15/17 ) Ondansetron Inj (Zofran Inj) (04/15/17 16:30) Sodium Chlor 0.9% 1000 Ml Inj (Ns 1000 M (04/15/17 16:30) C Diff Toxin Pcr (04/15/17 16:42) Lactic Acid (04/15/17 16:58) Hydromorphone Pf Inj (Dilaudid Pf Inj) (04/15/17 17:00) Aspirin Ec (Ecotrin Ec) (04/16/17 09:00) Clonidine (Catapres) (04/15/17 18:45) Dronedarone (Multaq) (04/15/17 21:00) Cholecalciferol (Vitamin D3) (04/16/17 09:00) Admit To Inpatient (04/15/17 ) Code Status (04/15/17 18:46) Vital Signs (Adult) LIZZ.Q1H (04/15/17 18:46) Elevate Head Of Bed (04/15/17 18:46) Activity Oob With Assistance (04/15/17 18:46) Bedside Glucose LIZZ.BGM (04/15/17 18:46) ^ Straight Catheter PRN (04/15/17 18:46) Diet Heart Healthy (04/15/17 Dinner) Sodium Chlor 0.9% 1000 Ml Inj (Ns 1000 M (04/15/17 18:46) Sodium Chloride 0.9% Flush (Ns Flush) (04/15/17 19:00) Sodium Chloride 0.9% Flush (Ns Flush) (04/15/17 21:00) Acetaminophen (Tylenol) (04/15/17 19:00) Oxycodone-Acetamin 5-325 Mg (Percocet (04/15/17 19:00) Famotidine Inj (Pepcid Inj) (04/15/17 21:00) Lorazepam Inj (Ativan Inj) (04/15/17 19:00) Ondansetron Inj (Zofran Inj) (04/15/17 19:00) Zolpidem (Ambien) (04/15/17 19:00) Albuterol-Ipratropium Neb (Duoneb Neb) (04/15/17 19:00) Lactic Acid (04/16/17 04:00) Blood Culture (04/15/17 18:46) Chest, Single Ap (04/16/17 ) Pt Request For Service (04/15/17 18:46) Consult Infectious Disease (04/15/17 ) [employer] / Telemetry LIZZ.Q8H (04/15/17 18:46) Heparin Inj (Heparin Inj) (04/15/17 19:00) Scd Bilateral/Knee High LIZZ.BID (04/15/17 18:46) Martin Bilateral/Knee High LIZZ.QSHIFT (04/15/17 18:46) ^ Initiate Protocol (04/15/17 18:46) Instruction (04/15/17 18:46) [facility] Nursing Information (04/15/17 19:00) Chlorhexidine 2% Cloth (Chlorhexidine 2% (04/16/17 04:00) Chlorhexidine 2% Cloth (Chlorhexidine 2% (04/15/17 19:00) Mrsa Pcr Surveillance (04/15/17 18:46) Docusate Sodium-Senna (Carlee-Colace) (04/15/17 21:00) Magnesium Hydroxide Liq (Milk Of Magnesi (04/15/17 19:00) Sennosides (Senokot) (04/15/17 19:00) Bisacodyl Supp (Dulcolax Supp) (04/15/17 19:00) Lactulose Liq (Lactulose Liq) (04/15/17 19:00) Inpatient Certification (04/15/17 ) Doxycycline Inj (Vibramycin Inj) (04/15/17 19:00) Ceftriaxone Inj (Rocephin Inj) (04/15/17 19:00) Admit Order (Ed Use Only) (04/15/17 18:56) Consult Gynecology (04/15/17 ) Labs Laboratory Tests Test 04/15/17 16:50 White Blood Count 4.8 TH/MM3 Red Blood Count 2.42 MIL/MM3 Hemoglobin 7.6 GM/DL Hematocrit 22.7 % Mean Corpuscular Volume 93.6 FL Mean Corpuscular Hemoglobin 31.3 PG Mean Corpuscular Hemoglobin 33.4 % Concent Red Cell Distribution Width 24.2 % Platelet Count 155 TH/MM3 Mean Platelet Volume 7.7 FL Neutrophils (%) (Auto) 91.8 % Lymphocytes (%) (Auto) 1.8 % Monocytes (%) (Auto) 6.1 % Eosinophils (%) (Auto) 0.0 % Basophils (%) (Auto) 0.3 % Neutrophils # (Auto) 4.4 TH/MM3 Lymphocytes # (Auto) 0.1 TH/MM3 Monocytes # (Auto) 0.3 TH/MM3 Eosinophils # (Auto) 0.0 TH/MM3 Basophils # (Auto) 0.0 TH/MM3 CBC Comment AUTO DIFF Differential Total Cells 100 Counted Neutrophils % (Manual) 78 % Band Neutrophils % 13 % Lymphocytes % 3 % Monocytes % 6 % Neutrophils # (Manual) 4.4 TH/MM3 Differential Comment FINAL DIFF MANUAL Dohle Bodies PRESENT Platelet Estimate NORMAL Platelet Morphology Comment NORMAL Ovalocytes 1+ Sodium Level 134 MEQ/L Potassium Level 3.8 MEQ/L Chloride Level 95 MEQ/L Carbon Dioxide Level 23.1 MEQ/L Anion Gap 16 MEQ/L Blood Urea Nitrogen 29 MG/DL Creatinine 3.96 MG/DL Estimat Glomerular Filtration 13 ML/MIN Rate Random Glucose 75 MG/DL Lactic Acid Level 1.3 mmol/L Calcium Level 7.9 MG/DL Total Bilirubin 0.6 MG/DL Aspartate Amino Transf 16 U/L (AST/SGOT) Alanine Aminotransferase 13 U/L (ALT/SGPT) Alkaline Phosphatase 349 U/L Total Protein 5.1 GM/DL Albumin 2.2 GM/DL [place] Medical Decision Making Medical Screen Exam Complete: Yes Emergency Medical Condition: Yes Differential Diagnosis Differentials include endometritis, UTI, c. diff, sepsis, septic arthritis. 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 Erika Arnold or for admission. The patient has a fever with nausea vomiting. The patient was status post uterine ablation 2 weeks prior. My pulse account is 4.8. Patient to be anemic here with a history of previous anemia. She had dialysis this morning. Her potassium is normal creatinine is elevated consistent with her renal disease. The case was discussed with Dr. Sriram Fontaine, picker machine operator, who agrees to admit the patient to the intensive care unit. She did have an episode of hypotension. She was given a fluid bolus that brought her pressure back up. He was started her on ceftriaxone and doxycycline. Diagnosis Primary Impression: Sepsis Additional Impressions: suspected endometritis Renal failure History of renal transplant Dependence on renal dialysis dialysis dependent Anemia Admitting Information Admitting Physician Requests: Admit Henrique Cifuentes MD Apr 15, 2017 16:43
[2017-04-15] MEDS ORDERED: HYDROmorphone HCL PF 1 MG/ML VIAL IVS ONE (17:00)
[2017-04-15 17:18] LABS: AUTOMATED NEUTROPHIL # 4.4 TH/MM3 (1.8-7.7); BASOPHIL % 0.3 % (0.0-2.0); HEMATOCRIT 22.7 % (35.0-46.0); LYMPH % 1.8 % (9.0-44.0); LYMPHOCYTE # 0.1 TH/MM3 (1.0-4.8); MEAN CELL VOLUME 93.6 FL (80.0-100.0); MEAN CORPUSCULAR HEMOGLOBIN 31.3 PG (27.0-34.0); MEAN CORPUSCULAR HGB CONC 33.4 % (32.0-36.0); MONO % 6.1 % (0.0-8.0); NEUT % 91.8 % (16.0-70.0); PLATELET COUNT 155 TH/MM3 (150-450); RED BLOOD COUNT 2.42 MIL/MM3 (4.00-5.30); RED CELL DISTRIBUTION WIDTH 24.2 % (11.6-17.2); WHITE BLOOD COUNT 4.8 TH/MM3 (4.0-11.0)
[2017-04-15 17:22] LABS: HEMO FLAGS AUTO DIFF
[2017-04-15 17:39] LABS: ALT (GPT) 13 U/L (10-53); ANION GAP 16 MEQ/L (5-15); AST (GOT) 16 U/L (15-37); BICARBONATE 23.1 MEQ/L (21.0-32.0); BLOOD UREA NITROGEN 29 MG/DL (7-18); CHLORIDE 95 MEQ/L (98-107); GLOMERULAR FILTRATION RATE 13 ML/MIN (>89); POTASSIUM 3.8 MEQ/L (3.5-5.1); SODIUM (NA) 134 MEQ/L (136-145)
[2017-04-15 17:41] LABS: ALKALINE PHOSPHATASE 349 U/L (45-117); TOTAL BILIRUBIN ADULT 0.6 MG/DL (0.2-1.0)
[2017-04-15] MEDS ORDERED: ASPI1TAB91 PO (18:09)
[2017-04-15] MEDS ORDERED: MACR100C2 PO (18:09)
[2017-04-15] MEDS ORDERED: PERC5TAB12 PO (18:09)
[2017-04-15] MEDS ORDERED: MULT400T PO (18:09)
[2017-04-15] MEDS ORDERED: CHOL1TAB42 PO (18:09)
[2017-04-15] MEDS ORDERED: CLON0.1T PO (18:09)
[2017-04-15] MEDS ORDERED: ZOFR4TAB PO (18:09)
[2017-04-15] MEDS ORDERED: COLA100C PO (18:09)
[2017-04-15 18:20] LABS: BANDS 13 % (0-6); NEUTROPHIL # MANUAL DIFF 4.4 TH/MM3 (1.8-7.7); POLYS (SEG NEUTROPHILS) 78 % (16-70); WBC DIFF SAMPLE 100
[2017-04-15 18:22] LABS: DOHLE BODIES PRESENT (NONE SEEN); OVALOCYTES 1+ (NORMAL); PLATELET ESTIMATE SMEAR NORMAL (NORMAL); PLATELET MORPHOLOGY NORMAL (NORMAL)
[2017-04-15 18:23] LABS: SCAN/DIFF FINAL DIFF MANUAL
[2017-04-15] MEDS ORDERED: cloNIDine HCL 0.1 MG TAB PO PRN (18:45)
--- NOTE | 2017-04-15 18:57 | HHI.HP ---
HPI Service Critical Care Medicine Primary Care Physician Alcides Monzon MD (Paul) Admission Diagnosis Diagnosis: Travel History International Travel<30 Days: No Contact w/Intl Traveler <30 Da: No Traveled to Known Affected Are: No History of Present Illness 27-year-old female who has a chronic renal condition that caused early renal failure in her teens now status post 5 transplants, has had issues of chronic immunosuppresion, including rapid development of pneumonia and ARDS from a cold ; joint sepsis and recent left knee debridement, CVA and need for chronic anticoagulation and dialysis twice weekly in [place], presents today complaining of abdominal pain, fevers, and diarrhea. . Earlier this month, she called [employer] with extremely heavily bleeding despite placement of mirena IUD. This was so profound she bled to a hgb< 5 and required ablation and transfusion. She did well the first two weeks and then developed the above symptoms two days ago. She was started on by mouth antibiotics by her [employer] physician but her symptoms progressed and she presents to ED today after dialysis. MRI obtained today show unremarkable uterus BUT suggests bilateral TOAs which is unexpected. She is followed by [facility] with desire to avoid surgical intervention given co morbidities. Review of Systems Constitutional: COMPLAINS OF: Fever, DENIES: Diaphoretic episodes, Fatigue, Weight gain, Weight loss, Chills, Dizziness, Change in appetite, Night Sweats Endocrine: DENIES: Abnorml menstrual pattern, Heat/cold intolerance, Polydipsia , Polyuria, Polyphagia Eyes: DENIES: Blurred vision, Diplopia, Eye inflammation, Eye pain, Vision loss , Photosensitivity, Double Vision Ears, nose, mouth, throat: DENIES: Tinnitus, Hearing loss, Vertigo, Nasal discharge, Oral lesions, Throat pain, Hoarseness, Ear Pain, Running Nose, Epistaxis, Sinus Pain, Toothache, Odynophagia Respiratory: DENIES: Apneas, Cough, Snoring, Wheezing, Hemoptysis, Sputum production, Shortness of breath Cardiovascular: DENIES: Chest pain, Palpitations, Syncope, Dyspnea on Exertion , PND, Lower Extremity Edema, Orthopnea, Claudication Gastrointestinal: COMPLAINS OF: Abdominal pain, Diarrhea, DENIES: Black stools , Bloody stools, Constipation, Nausea, Vomiting, Difficulty Swallowing, Anorexia Genitourinary: DENIES: Abnormal vaginal bleeding, Dysmenorrhea, Dyspareunia, Sexual dysfunction, Urinary frequency, Urinary incontinence, Urgency, Hematuria , Dysuria, Nocturia, Vaginal discharge Musculoskeletal: COMPLAINS OF: Joint pain, DENIES: Muscle aches, Stiffness, Joint Swelling, Back pain, Neck pain Integumentary: DENIES: Abnormal pigmentation, Pruritus, Rash, Nail changes, Breast masses, Breast skin changes, Nipple discharge Hematologic/lymphatic: DENIES: Bruising, Lymphadenopathy Immunologic/allergic: DENIES: Eczema, Urticaria Neurologic: DENIES: Abnormal gait, Headache, Localized weakness, Paresthesias, Seizures, Speech Problems, Tremor, Poor Balance Psychiatric: DENIES: Anxiety, Confusion, Mood changes, Depression, Hallucinations, Agitation, Suicidal Ideation, Homicidal Ideation, Delusions Past Family Social History Allergies: Coded Allergies: Gabapentin (Verified Allergy, Severe, 04/15/17) muscle spasms Past Medical History hypothyroidism hypertension GERD endstage renal failure history of CVA in 2013 hemodialysis dependent. history of chronic steroid therapy. Past Surgical History Renal transplants 5 left knee surgery x 2 endometrial ablation this month Reported Medications Reported Meds & Active Scripts Active Reported Clonidine (Clonidine HCl) 0.1 Mg Tab 0.1 Mg PO BID PRN Multaq (Dronedarone) 400 Mg Tab 400 Mg PO BID Macrobid (Nitrofurantoin Monoh/Nitrofur Macro) 100 Mg Cap 100 Mg PO Q12HR 7 Days Percocet (Oxycodone-Acetaminophen) 5-325 mg Tab 1-2 Tab PO Q6H PRN Zofran (Ondansetron HCl) 4 Mg Tab 4 Mg PO Q12HR PRN Colace (Docusate Sodium) 100 Mg Capsule 100 Mg PO DAILY Vitamin D-3 (Cholecalciferol) 2,000 Unit Tab 2,000 Units PO DAILY Aspirin Adult Low Strength (Aspirin) 81 Mg Tabdr 81 Mg PO DAILY Active Ordered Medications Current Medications Medications (Trade) Dose Ordered Sig/Mega Route PRN Reason Start Time Stop Time Status Last Admin Dose Admin Aspirin (Ecotrin Ec) 81 mg DAILY PO 04/16/17 09:00 Clonidine (Catapres) 0.1 mg BID PRN PO B/P greater than 180 04/15/17 18:45 Dronedarone (Multaq) 400 mg BID PO 04/15/17 21:00 04/15/17 20:26 Cholecalciferol 2000 units 2,000 units DAILY PO 04/16/17 09:00 Sodium Chloride (NS 1000 ml Inj) 1,000 ml @ 84 mls/hr [id number] IV 04/15/17 18:46 Sodium Chloride (NS Flush) 2 ml UNSCH PRN .XX FLUSH AFTER USING IV ACCESS 04/15/17 19:00 Sodium Chloride (NS Flush) 2 ml BID .XX 04/15/17 21:00 Acetaminophen (Tylenol) 650 mg Q6H PRN PO PAIN 1-10 AND/OR FEVER >101F 04/15/17 19:00 Oxycodone/ Acetaminophen (Percocet 5-325 Mg) 1 tab Q4H PRN PO PAIN SCALE 1 TO 5 04/15/17 19:00 04/15/17 21:32 Famotidine (Pepcid Inj) 20 mg Q12HR IV PUSH 04/15/17 21:00 04/15/17 21:00 Lorazepam (Ativan Inj) 1 mg Q1H PRN IV Agitation/Sedation 04/15/17 19:00 04/15/17 21:31 Ondansetron HCl (Zofran Inj) 4 mg Q6H PRN IV NAUSEA OR VOMITING 04/15/17 19:00 Zolpidem Tartrate (Ambien) 5 mg HS PRN PO INSOMNIA 04/15/17 19:00 Heparin Sodium (Porcine) (Heparin Inj) 5,000 units Q12H SQ 04/15/17 21:00 Miscellaneous Information 1 [id number] XX 04/15/17 19:00 Chlorhexidine Gluconate (Chlorhexidine 2% Cloth) 3 pack Taper DAILY@04 TOP 04/16/17 04:00 04/12/18 03:59 Chlorhexidine Gluconate (Chlorhexidine 2% Cloth) 3 pack UNSCH PRN TOP HYGIENIC CARE 04/15/17 19:00 Senna/Docusate Sodium (Carlee-Colace) 1 tab BID PO 04/15/17 21:00 Magnesium Hydroxide (Milk Of Magnesia Liq) 30 ml Q12H PRN PO MILD - MODERATE CONSTIPATION 04/15/17 19:00 Sennosides (Senokot) 17.2 mg Q12H PRN PO MODERATE - SEVERE CONSTIPATION 04/15/17 19:00 Bisacodyl (Dulcolax Supp) 10 mg DAILY PRN RECTAL SEVERE CONSITIPATION 04/15/17 19:00 Lactulose 30 ml 30 ml DAILY PRN PO SEVERE CONSITIPATION 04/15/17 19:00 Ceftriaxone Sodium/Sodium Chloride (Rocephin Inj/NS Inj) 100 ml @ 200 mls/hr Q24H IV 04/15/17 20:00 04/15/17 20:00 Family History No family history of cancer or early coronary artery disease Social History Negative for smoking alcohol or any significant abuse Physical Exam Vital Signs Vital Signs Date Time Temp Pulse Resp B/P Pulse Ox O2 Delivery O2 Flow Rate FiO2 04/15/17 17:36 86 16 98/52 100 Room Air 04/15/17 17:13 84 16 85/50 94 Room Air 04/15/17 16:59 98 04/15/17 16:25 99.2 88 20 87/54 100 Room Air 04/15/17 15:52 16 04/15/17 14:56 98.3 87 17 110/57 100 Physical Exam GENERAL: Well-nourished, well-developed patient. SKIN: Warm and dry. HEAD: Normocephalic. EYES: No scleral icterus. No injection or drainage. NECK: Supple, trachea midline. No JVD or lymphadenopathy. CARDIOVASCULAR: Regular rate and rhythm without murmurs, gallops, or rubs. RESPIRATORY: Breath sounds equal bilaterally. No accessory muscle use. GASTROINTESTINAL: Abdomen soft, non-tender, nondistended. MUSCULOSKELETAL: No cyanosis, or edema. BACK: Nontender without obvious deformity. No CVA tenderness. EXTREMITIES: No clubbing cyanosis or edema Laboratory Laboratory Tests Test 04/15/17 16:50 White Blood Count 4.8 Red Blood Count 2.42 Hemoglobin 7.6 Hematocrit 22.7 Mean Corpuscular Volume 93.6 Mean Corpuscular Hemoglobin 31.3 Mean Corpuscular Hemoglobin 33.4 Concent Red Cell Distribution Width 24.2 Platelet Count 155 Mean Platelet Volume 7.7 Neutrophils (%) (Auto) 91.8 Lymphocytes (%) (Auto) 1.8 Monocytes (%) (Auto) 6.1 Eosinophils (%) (Auto) 0.0 Basophils (%) (Auto) 0.3 Neutrophils # (Auto) 4.4 Lymphocytes # (Auto) 0.1 Monocytes # (Auto) 0.3 Eosinophils # (Auto) 0.0 Basophils # (Auto) 0.0 CBC Comment AUTO DIFF Differential Total Cells 100 Counted Neutrophils % (Manual) 78 Band Neutrophils % 13 Lymphocytes % 3 Monocytes % 6 Neutrophils # (Manual) 4.4 Differential Comment FINAL DIFF MANUAL Dohle Bodies PRESENT Platelet Estimate NORMAL Platelet Morphology Comment NORMAL Ovalocytes 1+ Sodium Level 134 Potassium Level 3.8 Chloride Level 95 Carbon Dioxide Level 23.1 Anion Gap 16 Blood Urea Nitrogen 29 Creatinine 3.96 Estimat Glomerular Filtration 13 Rate Random Glucose 75 Lactic Acid Level 1.3 Calcium Level 7.9 Total Bilirubin 0.6 Aspartate Amino Transf 16 (AST/SGOT) Alanine Aminotransferase 13 (ALT/SGPT) Alkaline Phosphatase 349 Total Protein 5.1 Albumin 2.2 Date/Time Procedure Status Source Growth 04/15/17 17:10 Aerobic Blood Culture Received Blood Peripheral Pending 04/15/17 17:10 Anaerobic Blood Culture Received Blood Peripheral Pending Result Diagram: 04/15/17 1650 04/15/17 1650 Assessment and Plan Assessment and Plan Abdominal pain - Questionable starting ovarian abscesses formation per MRI - Broad-spectrum antibiotics - Blood cultures - Infectious disease consult - Appreciate [employer] End-stage renal disease - Hemodialysis per nephrology Hypothyroidism - Levothyroxin Hypertension - Clonidine when necessary GERD - Pantoprazole DVT GI prophylaxis - Teds SCDs subcutaneous heparin - Pantoprazole Critical Care: The total critical care time was 35 minutes. Time to perform other separately billable procedures was not included in the critical care time. Sriram Fontaine MD Apr 15, 2017 18:56
[2017-04-15] MEDS ORDERED: SENNOSIDES 8.6 MG TAB PO PRN (19:00)
[2017-04-15] MEDS ORDERED: ZOLPIDEM TARTRATE 5 MG TAB PO PRN (19:00)
[2017-04-15] MEDS ORDERED: LACTULOSE SYRUP 20 GM/30 ML CUP PO PRN (19:00)
[2017-04-15] MEDS ORDERED: BISACODYL 10 MG SUPP RECTAL PRN (19:00)
[2017-04-15] MEDS ORDERED: MISCELLANEOUS NURSING INFORMATION XX SCH (19:00)
[2017-04-15] MEDS ORDERED: RESP: ALBUTEROL 2.5 MG/IPRATROPIUM 0.5 MG NEB (PRN) INH (19:00)
[2017-04-15] MEDS ORDERED: LORazepam 2 MG/ML VIAL IV PRN (19:00)
[2017-04-15] MEDS ORDERED: CHLORHEXIDINE GLUCONATE 2 % 1 PACK (2 CLOTHS) TOP PRN (19:00)
[2017-04-15] MEDS ORDERED: MAGNESIUM HYDROXIDE SUSP 30 ML CUP PO PRN (19:00)
--- NOTE | 2017-04-15 19:17 | RADRPT ---
EXAM DATE/TIME: 04/15/2017 18:39 [facility] COMPARISON: No previous studies available for comparison. INDICATIONS : Endometritits MEDICAL HISTORY : Renal failure, chronic. SURGICAL HISTORY : Renal transplant x 5 ENCOUNTER: Initial ACUITY: 1 week PAIN SCORE: 7/10 LOCATION: Abdominal pain. TECHNIQUE: Multiplanar, multisequence magnetic resonance imaging of the pelvis was performed. FINDINGS: There is a transplant kidney in the right lower quadrant with hydronephrosis and hydroureter and find ings suggest a ureteral stent though incompletely evaluated on this study PA the uterus is normal in appearance. The bilateral adnexa are markedly abnormal with inflammatory changes and trace fluid with in the pelvis, dilated tubular and cystic appearing structures within the pelvis bilaterally on the l eft with a fluid fluid level measuring 9.4 x 5.8 m in AP and transverse dimension, and an abnormal ma sslike area on the right of 11.7 x 6 cm in AP and transverse dimension. Bilateral hydrosalpinx are gómez spected, and the possibility of superimposed infection/tubo-ovarian abscess he should be excluded no given knee stranding and fluid. The bladder is unremarkable. No there is circumferential bowel wall t hickening involving the rectum. 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 CONCLUSION: 1. The uterus is normal in appearance without obvious endometrial thickening or mass. 2. Normal appearing ovaries are not visualized. In the adnexal region bilaterally dilated tortuous tu bular structures are seen with a cystic complex appearance concerning for bilateral hydrosalpinx and tubo-ovarian abscess formation given the extensive inflammatory changes should be considered. 3. Abnormal circumferential bowel wall thickening involving the rectum. 4. Right lower quadrant transplant kidney with hydronephrosis. Moe Aragon MD on April 15, 2017 at 19:11 Board Certified Radiologist. This report was verified electronically.
[2017-04-15] MEDS ORDERED: cefTRIAXone INJ 1,000 MG in SODIUM CHLORIDE 0.9% INJ 100 ML IV SCH (20:00)
[2017-04-15] MEDS: DRONEDARONE 400 MG TAB PO SCH (20:26)
[2017-04-15] MEDS: SODIUM CHLORIDE 0.9% FLUSH 10 ML FLUSH SCH (21:00)
[2017-04-15] MEDS: DOCUSATE SODIUM 50 MG/SENNA 8.6 MG TAB PO SCH (21:00)
[2017-04-15] MEDS: HEPARIN SODIUM - SQ 10,000 UNITS/ML VIAL SQ SCH (21:00)
[2017-04-15] MEDS: FAMOTIDINE 20 MG/2 ML VIAL IV PUSH SCH (21:00)
[2017-04-15] MEDS ORDERED: DOXYCYCLINE INJ 200 MG in SODIUM CHLOR 0.9% 250 ML INJ 250 ML IV ONE (21:00)
--- NOTE | 2017-04-15 21:01 | HHI.PR ---
Subjective Remarks MRI show unremarkable uterus BUT suggests bilateral TOAs which is unexpected. Need dimensions via sonography to help with following conservatively. Desire to avoid surgical intervention given co morbidities. Would consider transfusion if OK with intensivest as she is best at 9 hgb. Objective - Vital Signs Date Time Temp Pulse Resp B/P Pulse Ox O2 Delivery O2 Flow Rate FiO2 04/15/17 20:27 20 04/15/17 19:55 93 20 109/56 98 Room Air 04/15/17 17:36 86 16 98/52 100 Room Air 04/15/17 17:13 84 16 85/50 94 Room Air 04/15/17 16:59 98 04/15/17 16:25 99.2 88 20 87/54 100 Room Air 04/15/17 15:52 16 04/15/17 14:56 98.3 87 17 110/57 100 Result Diagram: 04/15/17 1650 04/15/17 1650 Ayala Espinoza MD Apr 15, 2017 21:01
[2017-04-15] MEDS: oxyCODONE/ACETAMINOPHEN 5 MG/325 MG TAB PO PRN (21:32)
--- NOTE | 2017-04-15 22:48 | RADRPT ---
EXAM DATE/TIME: 04/15/2017 21:51 [facility] COMPARISON: MRI PELVIS W/O CONTRAST, April 15, 2017, 18:39. INDICATIONS : Pelvic pain. MEDICAL HISTORY : Hypertension. Thyroid disease. Cerebrovascular accident. Seizures. Anticoagulant therapy. Irregul ar heartbeat. Pneumonia. Renal failure. Dialysis. Anemia. SURGICAL HISTORY : Renal transplant x 5. Left knee surgery. Recent uterine ablation. Parathyroidectomy. ENCOUNTER: Initial ACUITY: 1 day PAIN SCORE: 6/10 LOCATION: Bilateral pelvis MEASUREMENTS: UTERUS: 6.6 x 5.0 x 3.6 cm ENDOMETRIAL STRIPE: 4 mm RIGHT OVARY: 8.0 x 5.7 x 5.4 cm LEFT OVARY: Non visualized FINDINGS: The uterus is normal in appearance with no evidence of endometrial thickening. Right lower quadrant r enal transplant. In the expected location of the right ovary, 2 hypoechoic tubular heterogeneous flui d filled structures are seen measuring 4.5 x 6.4 x 8 cm and 7 x 3.9 x 2.1 cm. A hydrosalpinx is suspe cted. A normal right ovary is not seen. There is blood flow identified on color Doppler imaging. On t he left there is a complex cystic mass measuring 9.7 x 6.1 x 6.5 cm with internal echoes and no inter nal blood flow. There is no free fluid. CONCLUSION: Normal ovarian tissue is not seen bilaterally. There are complex inhomogeneous elongated cystic struc tures in the bilateral adnexa most likely representing hydrosalpinges. Superimposed infection is not excluded. Moe Aragon MD on April 15, 2017 at 22:42 Board Certified Radiologist. This report was verified electronically.
[2017-04-16] VITALS (13 sets, daily range): BP systolic 97–143; BP diastolic 52–71; PULSE 74–111; RESP 12–18; TEMP 98.9–103; O2SAT 92–100
[2017-04-16 05:22] LABS: AUTOMATED NEUTROPHIL # 2.5 TH/MM3 (1.8-7.7); BASOPHIL % 0.4 % (0.0-2.0); EOSINOPHIL % 0.1 % (0.0-4.0); HEMATOCRIT 21.3 % (35.0-46.0); LYMPH % 3.2 % (9.0-44.0); LYMPHOCYTE # 0.1 TH/MM3 (1.0-4.8); MEAN CORPUSCULAR HEMOGLOBIN 30.4 PG (27.0-34.0); MEAN CORPUSCULAR HGB CONC 31.7 % (32.0-36.0); MONO % 13.2 % (0.0-8.0); NEUT % 83.1 % (16.0-70.0); PLATELET COUNT 100 TH/MM3 (150-450); RED BLOOD COUNT 2.22 MIL/MM3 (4.00-5.30); RED CELL DISTRIBUTION WIDTH 25.4 % (11.6-17.2)
[2017-04-16 05:28] LABS: HEMO FLAGS AUTO DIFF
[2017-04-16] MEDS: oxyCODONE/ACETAMINOPHEN 5 MG/325 MG TAB PO PRN (05:57)
[2017-04-16] MEDS: CHLORHEXIDINE GLUCONATE 2 % 1 PACK (2 CLOTHS) TOP SCH (05:58)
[2017-04-16 06:00] LABS: ALKALINE PHOSPHATASE 294 U/L (45-117); ALT (GPT) 10 U/L (10-53); ANION GAP 18 MEQ/L (5-15); AST (GOT) 13 U/L (15-37); BICARBONATE 20.2 MEQ/L (21.0-32.0); BLOOD UREA NITROGEN 33 MG/DL (7-18); CHLORIDE 98 MEQ/L (98-107); GLOMERULAR FILTRATION RATE 13 ML/MIN (>89); MAGNESIUM 2.1 MG/DL (1.5-2.5); POTASSIUM 4.1 MEQ/L (3.5-5.1); SODIUM (NA) 136 MEQ/L (136-145); TOTAL BILIRUBIN ADULT 0.6 MG/DL (0.2-1.0)
[2017-04-16] MEDS: ONDANSETRON HCL 4 MG/2 ML VIAL IV PRN ×2 (06:21→17:51)
--- NOTE | 2017-04-16 06:22 | RADRPT ---
EXAM DATE/TIME: 04/16/2017 03:44 [facility] COMPARISON: No previous studies available for comparison. INDICATIONS : Fever x 2 days. MEDICAL HISTORY : Hypertension. Thyroid disease. Cerebrovascular accident. Seizures. Anticoagulant SURGICAL HISTORY : Renal transplant x 5. Left knee surgery. Recent uterine ablation. ENCOUNTER: Subsequent ACUITY: 3 days PAIN SCORE: 9/10 LOCATION: Bilateral chest FINDINGS: Right chest port is present in satisfactory position. Lungs are focally clear. No pleural effusion is suspected. Cardiomediastinal contours are satisfactory for technique and projection. CONCLUSION: No acute disease Chris Myrick MD on April 16, 2017 at 6:20 Board Certified Radiologist. This report was verified electronically.
[2017-04-16] MEDS ORDERED: DEXTROSE 50% IN WATER 50 ML SYRINGE ONE (06:43)
[2017-04-16] MEDS ORDERED: SODIUM CHLOR 0.9% 250 ML INJ 250 ML IV ONE (07:45)
[2017-04-16] MEDS: INSULIN NovoLIN REGULAR SUPPLEMENTAL SCALE SQ SCH ×4 (08:00→20:00)
--- NOTE | 2017-04-16 08:00 | HHI.CCPN ---
Subjective Remarks/Hospital Course Hospital Course: 27-year-old female who has a chronic renal condition that caused early renal failure in her teens now status post 5 transplants, has had issues of chronic immunosuppresion, including rapid development of pneumonia and ARDS from a cold ; joint sepsis and recent left knee debridement, CVA and need for chronic anticoagulation and dialysis twice weekly in [place], presents today complaining of abdominal pain, fevers, and diarrhea. . Earlier this month, she called [employer] with extremely heavily bleeding despite placement of mirena IUD. This was so profound she bled to a hgb< 5 and required ablation and transfusion. She did well the first two weeks and then developed the above symptoms two days ago. She was started on by mouth antibiotics by her [employer] OPER[employer] physician but her symptoms progressed and she presents to ED today after dialysis. MRI obtained today show unremarkable uterus BUT suggests bilateral TOAs which is unexpected. She is followed by [employer] O[employer] with desire to avoid surgical intervention given co morbidities. Subjective: 04/16: complaints of abdominal pain not well-controlled with current percocet. hypoglycemic overnight requiring d50w x 1. hemodynamics stabilized. Objective Vital Signs Date Time Temp Pulse Resp B/P Pulse Ox O2 Delivery O2 Flow Rate FiO2 04/16/17 06:00 94 04/16/17 04:00 99.0 14 114/58 98 04/15/17 21:34 Room Air Result Diagram: 04/16/17 04304/16/17 043 Objective Remarks GENERAL: young chronically ill-appearing female, lying in bed, in distress due to pain SKIN: Warm and dry. HEAD: Normocephalic. EYES: No scleral icterus. No injection or drainage. NECK: trachea midline. No JVD. CARDIOVASCULAR: Regular rate and rhythm. sinus by tele. RESPIRATORY: equal chest rise. on room air. GASTROINTESTINAL: Abdomen soft, moderately tender to palpation over pelvis. only mildly diffusely tender in the upper quadrants. no guarding or rebound. nondistended. MUSCULOSKELETAL: No cyanosis, or edema. EXTREMITIES: No clubbing cyanosis or edema Neuro: awake, alert, oriented. RASS 0. no focal deficits. A/P Assessment and Plan Assessment: 27yF with ESRD, severe tuboovarian abscess, severe sepsis, possible fungal post-op knee infection. Although her hemodynamics have stabilized, she clinically does not appear much improved, and given her immunosuppressed state s /p renal transplant, very high risk for decompensation and . agree with keeping her in ICU another day. will change her abx to cefoxitin and doxycycline for more broad coverage of TOA. f/u culture data. also start fluconazole for candidate in her post-op wound bed, unknown if this is colonization vs. infection, but given how clinically critically ill she is at this time, will empirically cover this immunocompromised patient. Will consult nephrology. Agree with ID consults and appreciate [facility] Assistant assistance. Abdominal pain- severe - secondary to TOA. - add oxycodone 10mg po q4h prn - add dilaudid 0.5mg iv q3h prn Severe Sepsis Tubo-ovarian Abscess - f/u blood cultures - d/c rocephin - start cefoxitin, renally adjusted - start doxycycline - Infectious disease consult - Appreciate [employer] OPERATOR Rosie wound infection -- unclear if colonization or infection, but immunocompromised and clinically toxic appearing -- start fluconazole, renally adjusted iv. -- ID consult. Hypoglycemia -- prn d50w. -- increase glucose checks to q4h -- change NS to d5NS @ 84cc/hr. End-stage renal disease - Hemodialysis per nephrology - consult nephrology Anemia secondary to critical illness and ESRD -- given severe sepsis with end-organ involvement, will transfuse 1 unit prbc given hgb < 7. recheck daily with CBC. Hypothyroidism - Levothyroxin Hypertension - Clonidine when necessary GERD - Pantoprazole DVT GI prophylaxis - Teds SCDs subcutaneous heparin - Pantoprazole Dispo: remain in ICU. Hilario Smith MD Apr 16, 2017 08:00
[2017-04-16] MEDS: HYDROmorphone HCL PF 1 MG/ML VIAL IV PUSH PRN ×4 (08:08→21:56)
[2017-04-16] MEDS: FAMOTIDINE 20 MG/2 ML VIAL IV PUSH SCH ×2 (08:10→20:03)
[2017-04-16] MEDS: DOCUSATE SODIUM 50 MG/SENNA 8.6 MG TAB PO SCH ×2 (08:10→20:03)
[2017-04-16] MEDS: CHOLECALCIFEROL (VIT D3) 1000 UNIT TAB PO SCH (08:10)
[2017-04-16] MEDS: ASPIRIN EC 81 MG TABEC PO SCH (08:10)
[2017-04-16] MEDS: SODIUM CHLORIDE 0.9% FLUSH 10 ML FLUSH SCH ×2 (08:11→20:02)
[2017-04-16] MEDS: DRONEDARONE 400 MG TAB PO SCH ×2 (08:11→20:03)
[2017-04-16] MEDS: DEXT 5%-NACL 0.9% 1000 ML INJ 1,000 ML IV SCH ×2 (08:16→17:51)
[2017-04-16] MEDS: HEPARIN SODIUM - SQ 10,000 UNITS/ML VIAL SQ SCH ×4 (08:17→20:07)
[2017-04-16] MEDS ORDERED: ceFOXitin INJ 2 GM in SODIUM CHLORIDE 0.9% INJ 100 ML IV SCH (09:00)
[2017-04-16] MEDS: FLUCONAZOLE 200 MG PREMIX BAG 100 ML IV SCH (10:52)
[2017-04-16] MEDS: DOXYCYCLINE INJ 100 MG in SODIUM CHLORIDE 0.9% INJ 100 ML IV SCH ×2 (10:52→21:55)
[2017-04-16] MEDS: ACETAMINOPHEN 325 MG TAB PO PRN (11:18)
[2017-04-16 11:20] LABS: BANDS 7 % (0-6); NEUTROPHIL # MANUAL DIFF 2.7 TH/MM3 (1.8-7.7); PLATELET ESTIMATE SMEAR LOW (NORMAL); PLATELET MORPHOLOGY NORMAL (NORMAL); POLYS (SEG NEUTROPHILS) 83 % (16-70); SCAN/DIFF FINAL DIFF MANUAL; WBC DIFF SAMPLE 100
[2017-04-16 11:21] LABS: OVALOCYTES 1+ (NORMAL); TEARDROP RBCS 1+ (NORMAL)
--- NOTE | 2017-04-16 12:29 | HHI.PR ---
Subjective Remarks Reviewed ultrasound with Shilpa and her Mom. Shilpa has pelvic pain and lower back pain. This started two days ago and has progressed. She is having fever and chills. The ultrasound shows 8-9 cm bilateral complex structures that are likely TOA's. This has been explained to them both. Objective - Vital Signs Date Time Temp Pulse Resp B/P Pulse Ox O2 Delivery O2 Flow Rate FiO2 04/16/17 11:54 16 04/16/17 11:54 16 04/16/17 10:00 111 04/16/17 08:00 100 04/16/17 08:00 100.3 99 12 143/71 96 04/16/17 07:51 92 Nasal Cannula 2.00 04/16/17 06:00 94 04/16/17 04:00 78 04/16/17 04:00 99.0 78 14 114/58 98 04/16/17 02:00 74 04/16/17 00:00 78 04/15/17 21:34 92 104/56 99 Room Air 04/15/17 20:27 20 04/15/17 19:55 93 20 109/56 98 Room Air 04/15/17 17:36 86 16 98/52 100 Room Air 04/15/17 17:13 84 16 85/50 94 Room Air 04/15/17 16:59 98 04/15/17 16:25 99.2 88 20 87/54 100 Room Air 04/15/17 15:52 16 04/15/17 14:56 98.3 87 17 110/57 100 I/O 04/15/17 04/15/17 04/15/17 04/16/17 04/16/17 04/16/17 07:00 15:00 23:00 07:00 15:00 23:00 Intake Total 1065 ml Output Total 0 ml Balance 1065 ml Intake IV Total 1065 ml Output Urine Total 0 ml # Bowel Movements 0 Result Diagram: 04/16/17 0430 04/16/17 0430 A/P Assessment and Plan Clinical symptoms of new onset pelvic pain and imaging showing bilateral hydrosalpinges vs tubal abcesses vs TOAs. Clinical symptoms and signs of sepsis secondary to her chronic immunosuppression. Hx of kidney transplant x 5( and explant x 4) with many co morbidities. Must presume etiology of pain and clinical sepsis related to these complex tubal structures; she underwent an emergent endometrial ablation about three weeks ago for intractable menorrhagia and acute anemia (superimposed on her chronic anemia). Dilemma is whether to intervene with IR drainage, lscope or exp lap in the context of her current health vs. try conservative treatment with IV antibiotics and see if these resolve or become sterile. Normally these would be drained laparoscopically and possibly removed. Sometimes a "cleanout" ( TAHBSO) is most appropriate. Her clinical condition at this time plus the anticipated difficulty of surgery to reach these tubes, with her pelvic kidney and anticipated scar tissue makes surgical intervention daunting. I have placed consult requests to Dr. Capellan (IR) and Dr. Oro (general surgery) to weigh in on this. Ayala Espinoza MD Apr 16, 2017 12:29
--- NOTE | 2017-04-16 13:04 | HHI.PR ---
Objective - Vital Signs Date Time Temp Pulse Resp B/P Pulse Ox O2 Delivery O2 Flow Rate FiO2 04/16/17 11:54 16 04/16/17 11:54 16 04/16/17 10:00 111 04/16/17 08:00 100 04/16/17 08:00 100.3 99 12 143/71 96 04/16/17 07:51 92 Nasal Cannula 2.00 04/16/17 06:00 94 04/16/17 04:00 78 04/16/17 04:00 99.0 78 14 114/58 98 04/16/17 02:00 74 04/16/17 00:00 78 04/15/17 21:34 92 104/56 99 Room Air 04/15/17 20:27 20 04/15/17 19:55 93 20 109/56 98 Room Air 04/15/17 17:36 86 16 98/52 100 Room Air 04/15/17 17:13 84 16 85/50 94 Room Air 04/15/17 16:59 98 04/15/17 16:25 99.2 88 20 87/54 100 Room Air 04/15/17 15:52 16 04/15/17 14:56 98.3 87 17 110/57 100 I/O 04/15/17 04/15/17 04/15/17 04/16/17 04/16/17 04/16/17 07:00 15:00 23:00 07:00 15:00 23:00 Intake Total 1065 ml Output Total 0 ml Balance 1065 ml Intake IV Total 1065 ml Output Urine Total 0 ml # Bowel Movements 0 Result Diagram: 04/16/17 0430 04/16/17 0430 Other Results aerobic blood cultures show enterobacter do not see results for cdiff assay yet temp 103 at noon. have spoken with Dr. Oro who will assess but feels she needs to be transferred out to specialty center have spoken with Dr. Capellan who could access these TOAs but would need anticoagulation reversed and understandably questions if this is the correct course. Family is getting the number for the [facility] where Dr. Ryan did last transplant. I will speak with alternative medicine practitioner surgeons and present case. Ayala Espinoza MD Apr 16, 2017 13:04
--- NOTE | 2017-04-16 13:08 | PD.CONS ---
History of Present Illness Service Interventional Radiology Consult Requested By Reason for Consult ? percutaneous drain of pelvic collection Primary Care Physician Alcides Monzon MD (Paul) Diagnoses: (1) Sepsis History of Present Illness Patient has extensive history of multiple renal transplants, CVA and immunosuppression s/p endometrial ablation for bleed. Now with bilateral large tuboovarian collections likely abscess. They are amenable to percutaneous drainage if clinically necessary and if not amenable to medical/surgical treatment. Will need to reverse anticoagulation if percutaneous drainage is performed. Past Family Social History Allergies: Coded Allergies: Gabapentin (Verified Allergy, Severe, 04/15/17) muscle spasms Physical Exam Vital Signs Vital Signs Date Time Temp Pulse Resp B/P Pulse Ox O2 Delivery O2 Flow Rate FiO2 04/16/17 12:00 96 04/16/17 12:00 103.0 96 18 105/57 100 04/16/17 11:54 16 04/16/17 11:54 16 04/16/17 10:00 111 04/16/17 08:00 100 04/16/17 08:00 100.3 99 12 143/71 96 04/16/17 07:51 92 Nasal Cannula 2.00 04/16/17 06:00 94 04/16/17 04:00 78 04/16/17 04:00 99.0 78 14 114/58 98 04/16/17 02:00 74 04/16/17 00:00 78 04/15/17 21:34 92 104/56 99 Room Air 04/15/17 20:27 20 04/15/17 19:55 93 20 109/56 98 Room Air 04/15/17 17:36 86 16 98/52 100 Room Air 04/15/17 17:13 84 16 85/50 94 Room Air 04/15/17 16:59 98 04/15/17 16:25 99.2 88 20 87/54 100 Room Air 04/15/17 15:52 16 04/15/17 14:56 98.3 87 17 110/57 100 Physical Exam GENERAL: This is a well-nourished, well-developed patient, in no apparent distress. SKIN: No rashes, ecchymoses or lesions. Cool and dry. HEAD: Atraumatic. Normocephalic. No temporal or scalp tenderness. EYES: Pupils equal round and reactive. Extraocular motions intact. No scleral icterus. No injection or drainage. ENT: Nose without bleeding, purulent drainage or septal hematoma. Throat without erythema, tonsillar hypertrophy or exudate. Uvula midline. Airway patent. NECK: Trachea midline. No JVD or lymphadenopathy. Supple, nontender, no meningeal signs. CARDIOVASCULAR: Regular rate and rhythm without murmurs, gallops, or rubs. RESPIRATORY: Clear to auscultation. Breath sounds equal bilaterally. No wheezes , rales, or rhonchi. GASTROINTESTINAL: Abdomen soft, non-tender, nondistended. No hepato-splenomegaly , or palpable masses. No guarding. MUSCULOSKELETAL: Extremities without clubbing, cyanosis, or edema. No joint tenderness, effusion, or edema noted. No calf tenderness. Negative Homans sign bilaterally. NEUROLOGICAL: Awake and alert. Cranial nerves II through XII intact. Motor and sensory grossly within normal limits. Five out of 5 muscle strength in all muscle groups. Normal speech. Laboratory Laboratory Tests Test 04/15/17 04/15/17 04/16/17 04/16/17 16:50 23:03 04:30 05:45 White Blood Count 4.8 3.0 Red Blood Count 2.42 2.22 Hemoglobin 7.6 6.7 Hematocrit 22.7 21.3 Mean Corpuscular Volume 93.6 96.0 Mean Corpuscular Hemoglobin 31.3 30.4 Mean Corpuscular Hemoglobin 33.4 31.7 Concent Red Cell Distribution Width 24.2 25.4 Platelet Count 155 100 Mean Platelet Volume 7.7 7.7 Neutrophils (%) (Auto) 91.8 83.1 Lymphocytes (%) (Auto) 1.8 3.2 Monocytes (%) (Auto) 6.1 13.2 Eosinophils (%) (Auto) 0.0 0.1 Basophils (%) (Auto) 0.3 0.4 Neutrophils # (Auto) 4.4 2.5 Lymphocytes # (Auto) 0.1 0.1 Monocytes # (Auto) 0.3 0.4 Eosinophils # (Auto) 0.0 0.0 Basophils # (Auto) 0.0 0.0 CBC Comment AUTO DIFF AUTO DIFF Differential Total Cells 100 100 Counted Neutrophils % (Manual) 78 83 Band Neutrophils % 13 7 Lymphocytes % 3 5 Monocytes % 6 5 Neutrophils # (Manual) 4.4 2.7 Differential Comment FINAL DIFF FINAL DIFF MANUAL MANUAL Dohle Bodies PRESENT Platelet Estimate NORMAL LOW Platelet Morphology Comment NORMAL NORMAL Ovalocytes 1+ 1+ Sodium Level 134 136 Potassium Level 3.8 4.1 Chloride Level 95 98 Carbon Dioxide Level 23.1 20.2 Anion Gap 16 18 Blood Urea Nitrogen 29 33 Creatinine 3.96 4.12 Estimat Glomerular Filtration 13 13 Rate Random Glucose 75 41 Lactic Acid Level 1.3 0.5 Calcium Level 7.9 7.5 Total Bilirubin 0.6 0.6 Aspartate Amino Transf 16 13 (AST/SGOT) Alanine Aminotransferase 13 10 (ALT/SGPT) Alkaline Phosphatase 349 294 Total Protein 5.1 4.6 Albumin 2.2 2.0 Nasal Screen MRSA (PCR) MRSA NOT DETECTED Tear Drop Cells 1+ Phosphorus Level 4.6 Magnesium Level 2.1 Blood Type O NEGATIVE Antibody Screen NEGATIVE Crossmatch Leukocyte-Reduced Red Blood Cells Blood Bank Comment Date/Time Procedure Status Source Growth 04/15/17 17:10 Aerobic Blood Culture - Preliminary Resulted Blood Peripheral Enterobacter Species 04/15/17 17:10 Anaerobic Blood Culture - Preliminary Resulted Gram Negative Manjeet Result Diagram: 04/16/17 0430 04/16/17 0430 Jefferson Huynh MD Apr 16, 2017 13:08
--- NOTE | 2017-04-16 13:08 | MB ---
cc: IVA PACHECO MD DATE OF CONSULTATION: 04/16/2017. REASON FOR CONSULTATION: End-stage renal disease on hemodialysis for management. HISTORY OF PRESENT ILLNESS: This is a 27-year-old female with past medical history of hypertension, hypothyroidism, gastroesophageal reflux disease, history of chronic anemia, end-stage renal disease on hemodialysis two times per week, history of multiple renal transplants in the past who was admitted because of heavy vaginal bleeding after she had an IUD placed. I was called to see the patient for the management of dialysis. She has had renal failure since her childhood and has had multiple renal transplants done and off and on has been on dialysis. The last 1-1/2 years she has been getting hemodialysis two times per week. She has been following with a roofing applicator in [place]. She has a left arm AV fistula. The patient had ablation surgery done with an IUD placement by gynecology and she started having heavy bleeding and came to the hospital and had lower abdominal pain. She has some nausea but there is no vomiting. There is no history of diarrhea. No shortness of breath. No chest pain. PAST MEDICAL HISTORY: 1. Hypertension. 2. Gastroesophageal reflux disease (GERD). 3. Chronic anemia. 4. Hypothyroidism. 5. History of CVA. 6. End-stage renal disease on hemodialysis. PAST SURGICAL HISTORY: 1. Multiple surgeries for renal transplant. 2. History of left arm AV fistula surgery. 3. Bilateral knee surgery. 4. Endometrial ablation surgery. REVIEW OF SYSTEMS: The patient has generalized weakness and is feeling tired. She has no great fever. No sore throat. No shortness of breath. No chest pain. No palpitations. She has mild nausea. There is no vomiting. She has lower abdominal pain associated with vaginal bleeding. SOCIAL HISTORY: There is no history of smoking or alcoholism. FAMILY HISTORY: Family history is negative for any renal disease. ALLERGIES: She is allergic to GABAPENTIN. MEDICATIONS: Currently she is on: 1. IV fluids dextrose and saline at 84 an hour. 2. Multaq 400 milligrams twice a day. 3. Carlee-Colace one tablet twice a day. 4. Aspirin 81 milligrams once a day. 5. Vitamin D3 2000 units once a day. 6. Heparin 5000 units subcutaneous q. 12 hours. 7. Cefoxitin 2 grams q. 12 hours. 8. Doxycycline 100 milligrams twice a day. 9. Famotidine 20 milligrams q. 12 hours. 10. Fluconazole 200 milligrams once a day. 11. Regular insulin sliding. 12. Clonidine as needed. 13. Zofran as needed. PHYSICAL EXAMINATION: GENERAL: On examination, the patient is awake and alert and she is not in acute distress. She still has lower abdominal pain. VITAL SIGNS: Her last blood pressure was 143/71, temperature is 100.3, oxygen saturation is 92% to 96%. Her blood pressure was on the lower side and the lowest recorded is 85/50. HEAD, EYES, EARS, NOSE, THROAT: The pupils are equal and reacting to light. Nonicteric sclerae. Conjunctivae are pale. NECK: The neck is supple. JVD is not elevated. LUNGS: The patient has bilateral decreased air entry with occasional wheezing. HEART: S1 and S2 regular rhythm. ABDOMEN: Abdomen distended soft and lax. There is mild tenderness in the lower abdomen. There is no rebound or rigidity. Bowel sounds are positive. EXTREMITIES: There is mild edema in the legs. The left arm has an AV fistula with a good bruit. INVESTIGATIONS: WBC count is 3.0, hemoglobin 6.7, platelet count of 100, neutrophils 83.1%. Sodium 136, potassium 4.1, chloride 98, bicarb 20.2, BUN 33, creatinine 4.12, glucose 41, calcium 7.5, AST 13, ALT is 10, total protein is 4.6, albumin is 2.0. Blood culture growing gram-negative rods and Enterobacter species. IMAGING STUDIES: The patient had a chest x-ray done which shows lung miller clear. MRI of the pelvis was done which shows normal appearing ovaries, bowel thickening right lower quadrant transplant kidney with hydronephrosis. Pelvic ultrasound was done which shows normal ovaries, cystic structure in the adnexa, hydrosalpinx. Possible superimposed infection. ASSESSMENT AND PLAN: 1. Sepsis and bacteremia. 2. Hypotension. 3. Hypoglycemia. 4. Severe anemia. 5. Endometrial infection. 6. Wound infection. 7. End-stage renal disease on hemodialysis. The patient has been on hemodialysis Tuesday and Tuesday. She has multiple renal transplants and still has some renal function. I will arrange for her dialysis on Tuesday and will give the Epogen with dialysis. Thank you for the consultation, and I will follow the patient while she is in the hospital. MD SRINI Monroy/JORGE L /11:49 AM /12:54 PM
[2017-04-16] MEDS: metroNIDAZOLE 500 MG TAB PO SCH ×2 (13:34→21:55)
--- NOTE | 2017-04-16 13:51 | PD.CONS ---
History of Present Illness Service Infectious disease Consult Requested By Dr Ashley Fontaine Reason for Consult Evaluate patient status post kidney transplant, has PID Primary Care Physician Alcides Monzon MD (Paul) Diagnoses: History of Present Illness Patient seen and examined. Records reviewed. Patient is a 27-year-old female, who has a complicated medical history, recently underwent procedure for severe menstrual bleeding. She underwent D&C and ablation around March 24. 2 days prior to admission she started having significant abdominal pain, and some nausea. She also has had some fever and chills. She had episodes of diarrhea, but that has resolved. She also noted some mucousy bloody vaginal drainage. She presented to the hospital, and imaging studies showed significant inflammatory changes in the pelvis and possibly tubo-ovarian abscess. She has the transplanted kidney with hydronephrosis. Since admission she has been febrile up to 103. Her blood pressure is okay. She still has significant abdominal pain. The pain is in the lower quadrant and it radiates to her back. She denies any respiratory complaint. Patient has renal failure, and is anuric. 2 blood cultures done on admission are now reported as growing Enterobacter. Patient also has had problem with her left knee. She initially had fracture of her left patella, and has had arthroscopic surgery. There was a culture done in May that had Rosie albicans. Patient apparently had been given Diflucan previously. The last time she had any surgery on that left knee here in this area was in August, and this was done at [facility]. Culture it looks like from that surgery did not grow anything. Patient was subsequently referred to a doctor in [place], and she underwent more extensive surgery to her left knee. Culture reportedly grew yeast, and the patient was given Cresemba by the infectious disease physician who saw her at [facility]. She has a follow-up appointment with that infectious disease doctor around end of April. Infectious disease consultation has been requested to evaluate the patient. Review of Systems Constitutional: COMPLAINS OF: Fatigue, Fever, Chills Eyes: DENIES: Eye pain Ears, nose, mouth, throat: DENIES: Oral lesions, Throat pain, Ear Pain, Running Nose Respiratory: DENIES: Cough, Shortness of breath Cardiovascular: DENIES: Chest pain, Palpitations Gastrointestinal: COMPLAINS OF: Abdominal pain, Diarrhea, Nausea, DENIES: Vomiting, Difficulty Swallowing Musculoskeletal: COMPLAINS OF: Joint pain, Joint Swelling, Back pain Integumentary: DENIES: Rash Immunologic/allergic: DENIES: Urticaria Neurologic: DENIES: Headache Psychiatric: DENIES: Hallucinations Past Family Social History Allergies: Coded Allergies: Gabapentin (Verified Allergy, Severe, 04/15/17) muscle spasms Past Medical History Hypothyroidism Hypertension GERD Endstage renal disease, on HD - diagnosis made when she was about 3 years old CVA in 2013 History of chronic steroid therapy. 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 Past Surgical History Kidney transplant x 5, last one 2014, failed immediately; removal of previous transplanted kidney Left knee surgery x 2 Endometrial ablation this month Port placement 2016 Active Ordered Medications Tylenol Albuterol ASA Dulcolax Cefoxitin Diflucan Doxycycline Vit D3 Clonidine Multaq Pepcid Heparin Dilaudid INsulin Lactulose MOM Zofran Oxycodone Pericolace Senokot Family History History of kidney disease in family Social History No smoking No ETOH abuse No drugs Physical Exam Vital Signs Vital Signs Date Time Temp Pulse Resp B/P Pulse Ox O2 Delivery O2 Flow Rate FiO2 04/16/17 12:00 96 04/16/17 12:00 103.0 96 18 105/57 100 04/16/17 11:54 16 04/16/17 11:54 16 04/16/17 10:00 111 04/16/17 08:00 100 04/16/17 08:00 100.3 99 12 143/71 96 04/16/17 07:51 92 Nasal Cannula 2.00 04/16/17 06:00 94 04/16/17 04:00 78 04/16/17 04:00 99.0 78 14 114/58 98 04/16/17 02:00 74 04/16/17 00:00 78 04/15/17 21:34 92 104/56 99 Room Air 04/15/17 20:27 20 04/15/17 19:55 93 20 109/56 98 Room Air 04/15/17 17:36 86 16 98/52 100 Room Air 04/15/17 17:13 84 16 85/50 94 Room Air 04/15/17 16:59 98 04/15/17 16:25 99.2 88 20 87/54 100 Room Air 04/15/17 15:52 16 04/15/17 14:56 98.3 87 17 110/57 100 Physical Exam GENERAL: Patient is a chronically ill appearing female, well developed, awake and alert, not in respiratory distress. Has Cushingoid facies SKIN: Warm and dry. No generalized rash, no ecchymoses and no evidence of embolic lesions. HEAD: Atraumatic. Normocephalic. No temporal wasting, or tenderness. EYES: [place] conjunctiva. No petechia or hemorrhage. Pupils equal, round and reactive to light. Extraocular movements full and intact. No scleral icterus. No injection or drainage. EARS, NOSE AND THROAT: Nose without bleeding or purulent nasal discharge. No sinus tenderness. Mucous membranes pink and moist. No oral lesions noted. No exudate. No oral thrush. NECK: Trachea midline. Supple and not tender, no meningeal signs CARDIOVASCULAR: Regular rate and rhythm. No murmurs, rubs or gallops heard RESPIRATORY: Clear to auscultation. Breath sounds equal bilaterally. No rales , wheezing or rhonchi. Decreased at baes. Poirt in R upper chest, no evidence of infection ABDOMEN: Distended, hypoactive bowel sounds has scars compatible with multiple abdominal surgeries, has diffuse abdominal tenderness with mild guarding. EXTREMITIES: No clubbing, cyanosis. No pedal edema. LLE larger compared to the RLE. Her L knee has effusion, healed incsions with some scabs present, not red, slightly warm, able to flex to about 45 degrees. No calf tenderness. Well perfused and warm. NEUROLOGICAL: Awake and alert. Cranial nerves grossly intact. Motor grossly within normal limits. PSYCHIATRIC: Normal affect, calm and cooperative. LINE: Port with no evidence of infection Laboratory Laboratory Tests Test 04/15/17 04/15/17 04/16/17 04/16/17 16:50 23:03 04:30 05:45 White Blood Count 4.8 3.0 Red Blood Count 2.42 2.22 Hemoglobin 7.6 6.7 Hematocrit 22.7 21.3 Mean Corpuscular Volume 93.6 96.0 Mean Corpuscular Hemoglobin 31.3 30.4 Mean Corpuscular Hemoglobin 33.4 31.7 Concent Red Cell Distribution Width 24.2 25.4 Platelet Count 155 100 Mean Platelet Volume 7.7 7.7 Neutrophils (%) (Auto) 91.8 83.1 Lymphocytes (%) (Auto) 1.8 3.2 Monocytes (%) (Auto) 6.1 13.2 Eosinophils (%) (Auto) 0.0 0.1 Basophils (%) (Auto) 0.3 0.4 Neutrophils # (Auto) 4.4 2.5 Lymphocytes # (Auto) 0.1 0.1 Monocytes # (Auto) 0.3 0.4 Eosinophils # (Auto) 0.0 0.0 Basophils # (Auto) 0.0 0.0 CBC Comment AUTO DIFF AUTO DIFF Differential Total Cells 100 100 Counted Neutrophils % (Manual) 78 83 Band Neutrophils % 13 7 Lymphocytes % 3 5 Monocytes % 6 5 Neutrophils # (Manual) 4.4 2.7 Differential Comment FINAL DIFF FINAL DIFF MANUAL MANUAL Dohle Bodies PRESENT Platelet Estimate NORMAL LOW Platelet Morphology Comment NORMAL NORMAL Ovalocytes 1+ 1+ Sodium Level 134 136 Potassium Level 3.8 4.1 Chloride Level 95 98 Carbon Dioxide Level 23.1 20.2 Anion Gap 16 18 Blood Urea Nitrogen 29 33 Creatinine 3.96 4.12 Estimat Glomerular Filtration 13 13 Rate Random Glucose 75 41 Lactic Acid Level 1.3 0.5 Calcium Level 7.9 7.5 Total Bilirubin 0.6 0.6 Aspartate Amino Transf 16 13 (AST/SGOT) Alanine Aminotransferase 13 10 (ALT/SGPT) Alkaline Phosphatase 349 294 Total Protein 5.1 4.6 Albumin 2.2 2.0 Nasal Screen MRSA (PCR) MRSA NOT DETECTED Tear Drop Cells 1+ Phosphorus Level 4.6 Magnesium Level 2.1 Blood Type O NEGATIVE Antibody Screen NEGATIVE Crossmatch Leukocyte-Reduced Red Blood Cells Blood Bank Comment Date/Time Procedure Status Source Growth 04/15/17 17:10 Aerobic Blood Culture - Preliminary Resulted Blood Peripheral Enterobacter Species 04/15/17 17:10 Anaerobic Blood Culture - Preliminary Resulted Gram Negative Manjeet Result Diagram: 04/16/17 0430 04/16/17 0430 Imaging RADIOLOGY STUDIES/FILMS REVIEWED Chest X-Ray 04/16/17 0000 Signed Impressions: Service Date/Time: Sunday, April 16, 2017 03:44 - CONCLUSION: No acute disease Chris Myrick MD Pelvis Ultrasound 04/15/17 0000 Signed Impressions: Service Date/Time: Saturday, April 15, 2017 21:51 - CONCLUSION: Normal ovarian tissue is not seen bilaterally. There are complex inhomogeneous elongated cystic structures in the bilateral adnexa most likely representing hydrosalpinges. Superimposed infection is not excluded. Moe Aragon MD Pelvis MRI 04/15/17 0000 Signed Impressions: Service Date/Time: Saturday, April 15, 2017 18:39 - CONCLUSION: 1. The uterus is normal in appearance without obvious endometrial thickening or mass. 2. Normal appearing ovaries are not visualized. In the adnexal region bilaterally dilated tortuous tubular structures are seen with a cystic complex appearance concerning for bilateral hydrosalpinx and tubo-ovarian abscess formation given the extensive inflammatory changes should be considered. 3. Abnormal circumferential bowel wall thickening involving the rectum. 4. Right lower quadrant transplant kidney with hydronephrosis. Moe Aragon MD Assessment and Plan Assessment and Plan IMPRESSION Enterobacter sepsis, ?source - has possible TOA on imaging studies - recent D and C, and ablation for heavy bleeding; not sexually active - has some rectal wall thickening - has port ESRD, previous transplant x 5, last one done 2014 - on HD had AVG in her L upper arm Infection L knee, with yeast , OR end of January, has been on Cresemba, clinically improving RECOMMENDATION Change Cefoxitn to Zosyn Also on Doxy and Diflucan Add Flagyl Repeat BC C diff if she gets diarrhea Get records from [facility] to get more info on her L knee infection Follow C/S Monitor progress I will make further recommendation once work-up is completed I will follow along with you Thank you for this consultation Discussed Condition With Explained plan to the patient and mother D/W Aury Siddiqi MD Apr 16, 2017 13:51
[2017-04-16 14:52] LABS: APTT (PATIENT) 48.7 SEC (24.3-30.1); INTERNATIONAL NORMALIZED RATIO 1.2 RATIO
[2017-04-16] MEDS: PIPERACIL-TAZO 2.25 GM PREMIX 50 ML IV SCH ×2 (15:39→21:55)
[2017-04-16 17:34] LABS: HEMATOCRIT 23.3 % (35.0-46.0)
[2017-04-16 17:40] LABS: REVIEW FLAG FINAL
[2017-04-17] VITALS (13 sets, daily range): BP systolic 87–125; BP diastolic 48–81; PULSE 67–97; RESP 13–18; TEMP 98.1–101.8; O2SAT 100
[2017-04-17] MEDS: HYDROmorphone HCL PF 1 MG/ML VIAL IV PUSH PRN ×7 (00:44→23:57)
[2017-04-17] MEDS: ACETAMINOPHEN 325 MG TAB PO PRN ×2 (00:45→23:57)
[2017-04-17] MEDS: ONDANSETRON HCL 4 MG/2 ML VIAL IV PRN ×4 (00:45→23:57)
[2017-04-17] MEDS: DEXT 5%-NACL 0.9% 1000 ML INJ 1,000 ML IV SCH ×3 (00:51→20:37)
[2017-04-17] MEDS: CHLORHEXIDINE GLUCONATE 2 % 1 PACK (2 CLOTHS) TOP SCH (04:00)
[2017-04-17] MEDS: INSULIN NovoLIN REGULAR SUPPLEMENTAL SCALE SQ SCH ×6 (04:00→20:00)
[2017-04-17 06:12] LABS: AUTOMATED NEUTROPHIL # 2.5 TH/MM3 (1.8-7.7); BASOPHIL % 0.2 % (0.0-2.0); LYMPH % 2.5 % (9.0-44.0); LYMPHOCYTE # 0.1 TH/MM3 (1.0-4.8); MEAN CELL VOLUME 90.5 FL (80.0-100.0); MEAN CORPUSCULAR HEMOGLOBIN 29.3 PG (27.0-34.0); MEAN CORPUSCULAR HGB CONC 32.3 % (32.0-36.0); MONO % 15.1 % (0.0-8.0); NEUT % 82.2 % (16.0-70.0); PLATELET COUNT 60 TH/MM3 (150-450); RED BLOOD COUNT 2.28 MIL/MM3 (4.00-5.30); RED CELL DISTRIBUTION WIDTH 28.4 % (11.6-17.2)
[2017-04-17] MEDS: metroNIDAZOLE 500 MG TAB PO SCH ×3 (06:19→20:36)
[2017-04-17] MEDS: PIPERACIL-TAZO 2.25 GM PREMIX 50 ML IV SCH ×3 (06:19→20:36)
[2017-04-17 06:21] LABS: HEMO FLAGS AUTO DIFF
[2017-04-17 06:23] LABS: HEMATOCRIT 20.6 % (35.0-46.0)
[2017-04-17] MEDS ORDERED: SODIUM CHLOR 0.9% 250 ML INJ 250 ML IV ONE (06:30)
[2017-04-17 08:19] LABS: ALKALINE PHOSPHATASE 264 U/L (45-117); ALT (GPT) 9 U/L (10-53); ANION GAP 17 MEQ/L (5-15); AST (GOT) 9 U/L (15-37); BICARBONATE 18.5 MEQ/L (21.0-32.0); BLOOD UREA NITROGEN 34 MG/DL (7-18); CHLORIDE 101 MEQ/L (98-107); GLOMERULAR FILTRATION RATE 8 ML/MIN (>89); POTASSIUM 3.7 MEQ/L (3.5-5.1); SODIUM (NA) 136 MEQ/L (136-145); TOTAL BILIRUBIN ADULT 0.7 MG/DL (0.2-1.0)
[2017-04-17] MEDS: HEPARIN SODIUM - SQ 10,000 UNITS/ML VIAL SQ SCH ×2 (09:00→20:36)
[2017-04-17] MEDS: SODIUM CHLORIDE 0.9% FLUSH 10 ML FLUSH SCH ×2 (09:00→20:35)
[2017-04-17] MEDS: ASPIRIN EC 81 MG TABEC PO SCH (09:00)
[2017-04-17] MEDS: DRONEDARONE 400 MG TAB PO SCH ×2 (09:06→20:45)
[2017-04-17] MEDS: DOXYCYCLINE INJ 100 MG in SODIUM CHLORIDE 0.9% INJ 100 ML IV SCH ×2 (09:06→20:36)
[2017-04-17] MEDS: FAMOTIDINE 20 MG/2 ML VIAL IV PUSH SCH ×2 (09:06→20:35)
[2017-04-17] MEDS: DOCUSATE SODIUM 50 MG/SENNA 8.6 MG TAB PO SCH ×2 (09:06→20:36)
[2017-04-17] MEDS: CHOLECALCIFEROL (VIT D3) 1000 UNIT TAB PO SCH (09:06)
[2017-04-17 09:27] LABS: BANDS 6 % (0-6); DOHLE BODIES PRESENT (NONE SEEN); METAMYELOCYTES 3 % (0-1); NEUTROPHIL # MANUAL DIFF 2.6 TH/MM3 (1.8-7.7); OVALOCYTES 1+ (NORMAL); POLYS (SEG NEUTROPHILS) 77 % (16-70); WBC DIFF SAMPLE 100
[2017-04-17 09:28] LABS: PLATELET ESTIMATE SMEAR LOW (NORMAL); PLATELET MORPHOLOGY NORMAL (NORMAL); SCAN/DIFF FINAL DIFF MANUAL
[2017-04-17] MEDS ORDERED: PROMETHAZINE INJ 25 MG/ML VIAL IV-CENTRAL ONE (09:45)
[2017-04-17] MEDS ORDERED: SODIUM CHLOR 0.9% 1000 ML INJ 1,000 ML IV PRN ×2 (11:10)
--- NOTE | 2017-04-17 11:10 | HHI.NPPN ---
Subjective General Problems: Anemia, Hypertension Renal Failure: End Stage Renal Disease History of Present Illness 27-year-old female with past medical history of hypertension, hypothyroidism, gastroesophageal reflux disease, history of chronic anemia, end-stage renal disease on hemodialysis two times per week, history of multiple renal transplants in the past who was admitted because of heavy vaginal bleeding after she had an IUD placed. I was called to see the patient for the management of dialysis. Additional Remarks Patient is alert, now getting transfusion, not in distress, has mild lower abd. pain. Review of Systems General Constitutional: Fatigue Cardiovascular Cardiac: MUIR Gastrointestinal Gastrointestinal: Abdominal Pain, Nausea & Vomiting Objective Data Data 04/16/17 04/17/17 19:00 07:00 Intake Total 928 ml 1417 ml Output Total 0 ml 275 ml Balance 928 ml 1142 ml Intake Oral 200 ml 360 ml IV Total 478 ml 1057 ml Packed Cells 250 ml Output Urine Total 0 ml 275 ml # Voids 1 # Bowel Movements 0 1 Vital Signs Date Time Temp Pulse Resp B/P Pulse Ox O2 Delivery O2 Flow Rate FiO2 04/17/17 10:25 16 04/17/17 10:00 81 04/17/17 08:38 100 Nasal Cannula 2.00 04/17/17 08:00 82 04/17/17 08:00 98.1 80 16 106/60 100 04/17/17 06:00 67 04/17/17 04:00 98.3 80 14 87/48 100 04/17/17 04:00 80 04/17/17 02:00 92 04/17/17 00:00 86 04/17/17 00:00 101.8 86 16 104/53 100 04/16/17 22:00 100 04/16/17 20:00 85 04/16/17 20:00 99.3 85 18 113/55 96 04/16/17 18:00 82 04/16/17 16:00 82 04/16/17 16:00 98.9 82 17 97/52 100 04/16/17 14:00 88 04/16/17 12:00 96 04/16/17 12:00 103.0 96 18 105/57 100 04/16/17 11:54 16 -: 04/17/17 0500 04/17/17 0720 Microbiology 04/16/17 Aerobic Blood Culture, Received Pending 04/16/17 Anaerobic Blood Culture, Received Pending 04/16/17 Aerobic Blood Culture, Received Pending 04/16/17 Anaerobic Blood Culture, Received Pending Physical Exam General Appearance: No Acute Distress, Comfortable Eyes Eye Exam: Pupils Equal Throat Throat Exam: Oral Mucosa [place] & Moist Pulmonary Resp Exam: Breath Sounds Equal, No Distress, Decreased Bases Cardiology CV Exam: Regular, Normal Sinus Rhythm Gastrointestinal/Abdomen GI Exam: Soft, Bowel Sounds Present (mild lower abd. tenderness.), Non- Distended Extremeties Extremities Exam: Trace Edema Neurologic Neuro Exam: Alert, Awake, Oriented Psychiatric Psych Exam: Appropriate Responses Assessment/Plan Assessment Summary: Anemia of CKD, Hypertension, End Stage Renal Disease, Transplant Kidney Status Problem List: (1) Hypertension (2) Hypothyroidism (3) History of CVA (cerebrovascular accident) (4) Renal transplant failure and rejection (5) End stage chronic kidney disease (6) Anemia (7) Sepsis Plan Patient has again drop in the Hgb. and getting transfusion. HD is due in AM. On Zosyn, Doxycycline and Fluconazole. ID is following. HD will be in AM, will give Epogen with HD. D/W the patient and her father at bed side. Follow the Hgb., transfuse as needed. Veronica Pichardo MD Apr 17, 2017 11:10
[2017-04-17] MEDS ORDERED: NITROGLYCERIN 0.4 MG SL 25 TABS/BTL SL PRN (11:15)
[2017-04-17] MEDS ORDERED: ACETAMINOPHEN 325 MG TAB PO PRN (11:15)
[2017-04-17] MEDS ORDERED: MANNITOL 12.5 GM/50 ML VIAL IV PRN (11:15)
[2017-04-17] MEDS ORDERED: HEPARIN SODIUM - IV 10,000 UNITS/10 ML VIAL IVF PRN (11:15)
[2017-04-17] MEDS ORDERED: cloNIDine HCL 0.1 MG TAB PO PRN (11:15)
[2017-04-17] MEDS ORDERED: HEPARIN SODIUM - IV 10,000 UNITS/10 ML VIAL PRN (11:15)
[2017-04-17] MEDS ORDERED: GENTAMICIN SULFATE (DIALYSIS USE ONLY) 20 MG/2 ML VIAL IV PRN (11:15)
[2017-04-17] MEDS ORDERED: diphenhydrAMINE HCL 25 MG CAP PO PRN (11:15)
[2017-04-17] MEDS ORDERED: ALBUMIN HUMAN 25% 25 GM/100 ML BAGP IV PRN (11:15)
[2017-04-17] MEDS ORDERED: SODIUM CHLORIDE 0.9% FLUSH 10 ML FLUSH IV FLUSH PRN (11:15)
[2017-04-17] MEDS: FLUCONAZOLE 200 MG PREMIX BAG 100 ML IV SCH (11:56)
[2017-04-17] MEDS ORDERED: MORPHINE SULFATE 4 MG/ML INJ IV ONE (12:00)
--- NOTE | 2017-04-17 12:14 | HHI.PR ---
Subjective Remarks Pain is 4/10 answering questions accurately but doses between sentences states mucus bloody discharge diminished Objective - Vital Signs Date Time Temp Pulse Resp B/P Pulse Ox O2 Delivery O2 Flow Rate FiO2 04/17/17 10:25 16 04/17/17 10:00 81 04/17/17 08:38 100 Nasal Cannula 2.00 04/17/17 08:00 82 04/17/17 08:00 98.1 80 16 106/60 100 04/17/17 06:00 67 04/17/17 04:00 98.3 80 14 87/48 100 04/17/17 04:00 80 04/17/17 02:00 92 04/17/17 00:00 86 04/17/17 00:00 101.8 86 16 104/53 100 04/16/17 22:00 100 04/16/17 20:00 85 04/16/17 20:00 99.3 85 18 113/55 96 04/16/17 18:00 82 04/16/17 16:00 82 04/16/17 16:00 98.9 82 17 97/52 100 04/16/17 14:00 88 I/O 04/16/17 04/16/17 04/16/17 04/17/17 04/17/17 04/17/17 06:59 14:59 22:59 06:59 14:59 22:59 Intake Total 1065 ml 928 ml 782 ml 635 ml Output Total 0 ml 0 ml 275 ml Balance 1065 ml 928 ml 782 ml 360 ml Intake Oral 200 ml 240 ml 120 ml IV Total 1065 ml 478 ml 542 ml 515 ml Packed Cells 250 ml Output Urine Total 0 ml 0 ml 275 ml # Voids 0 1 # Bowel Movements 0 0 0 1 Result Diagram: 04/17/17 0500 04/17/17 0720 Other Results color same BP was low through night--now normotensive All blood indices drifted down after transfusion--including platelets creatinine drifting up as expected but potassium fine abdomen not distended more than yesterday no HSM tender to deep palpation throughout pelvis bedside sono performed in my presence. Awaiting reading but appears that adnexal masses are stable in dimensions, very complex and have doppler flow. no free fluid and no obvious hemotocolpos or myometriitis. discharge from vagina diminishing. A/P Assessment and Plan She is being replaced as needed by Dr. Smith with prbcs Should a surgical or IR intervention be considered will need platelets Need to repeat INR in am Not clear if acute enlargement of tubes due to rapid development of infection ( pus) or hemorrhagic. Would expect thicker randolph for tubes and free fluid for abcesses. Would not expect to see doppler flow (which was present) If hemorrahgic etiology not apparent and IR would not be appropriate. Will repeat sonogram in 48 hours Would continue conservative management unless deteriorates clinically and need for clean out or drainage overrides risk of intervention. Ayala Espinoza MD Apr 17, 2017 12:14
--- NOTE | 2017-04-17 12:16 | HHI.PR ---
Subjective Remarks forgot to mention case discussed with Manjeet Crane and he is available should surgical intervention be needed Also spoke with partner of Dr. Alonso Harris at [facility] and appraised him of her status. Will keep both informed. Objective - Vital Signs Date Time Temp Pulse Resp B/P Pulse Ox O2 Delivery O2 Flow Rate FiO2 04/17/17 10:25 16 04/17/17 10:00 81 04/17/17 08:38 100 Nasal Cannula 2.00 04/17/17 08:00 82 04/17/17 08:00 98.1 80 16 106/60 100 04/17/17 06:00 67 04/17/17 04:00 98.3 80 14 87/48 100 04/17/17 04:00 80 04/17/17 02:00 92 04/17/17 00:00 86 04/17/17 00:00 101.8 86 16 104/53 100 04/16/17 22:00 100 04/16/17 20:00 85 04/16/17 20:00 99.3 85 18 113/55 96 04/16/17 18:00 82 04/16/17 16:00 82 04/16/17 16:00 98.9 82 17 97/52 100 04/16/17 14:00 88 I/O 04/16/17 04/16/17 04/16/17 04/17/17 04/17/17 04/17/17 06:59 14:59 22:59 06:59 14:59 22:59 Intake Total 1065 ml 928 ml 782 ml 635 ml Output Total 0 ml 0 ml 275 ml Balance 1065 ml 928 ml 782 ml 360 ml Intake Oral 200 ml 240 ml 120 ml IV Total 1065 ml 478 ml 542 ml 515 ml Packed Cells 250 ml Output Urine Total 0 ml 0 ml 275 ml # Voids 0 1 # Bowel Movements 0 0 0 1 Result Diagram: 04/17/17 0500 04/17/17 0720 Ayala Espinoza MD Apr 17, 2017 12:16
--- NOTE | 2017-04-17 12:32 | RADRPT ---
EXAM DATE/TIME: 04/17/2017 11:32 [place] COMPARISON: MRI PELVIS W/O CONTRAST, April 15, 2017, 18:39. US PELVIS - COMPLETE (VACATION GUIDE,NON-PREG), April 15, 2017, 2 1:51. INDICATIONS : Reassesment of adnexal masses. MEDICAL HISTORY : Hypertension. Stroke Anticoagulant therapy. Irregular rhythm. pnemonia. Abdominal pain. Anemia. Tulio al failure. Dialysis. SURGICAL HISTORY : Parathyroid removal. Oral surgery. Ablation. Kidney transplant. Left knee surgery. ENCOUNTER: Subsequent ACUITY: 4-6 days PAIN SCORE: 6/10 LOCATION: Bilateral pelvis MEASUREMENTS: UTERUS: 5.7 x 4.2 x 3.2 cm ENDOMETRIAL STRIPE: 6 mm RIGHT OVARY: 6.4 x 6.1 x 5.1 cm LEFT OVARY: Non visualized FINDINGS: There is a huge right adnexal mass measures 6.5 x 6.9 x 6.8 cm in size in solid and cystic components within it and a normal ovary is visualized adjacent to it with follicles within it. There is also a huge almost 9.8 cm left adnexal mass which appears to be solid as well and normal left ovary is also not seen. There is no free fluid. CONCLUSION: There are complex adnexal masses bilaterally and a normal left ovary is not visualized, however the r ight ovary is visualized and the above-mentioned adnexal mass appears to be separate from it. Possibi lity of pyosalpinx should be entertained although the left ovary is not seen and therefore tubo-ovar christel abscess in the left ovary is not excluded. Tin Spencer MD on April 17, 2017 at 12:26 Board Certified Radiologist. This report was verified electronically.
[2017-04-17] MEDS ORDERED: DEXTROSE 50% IN WATER 50 ML SYRINGE ONE (12:44)
--- NOTE | 2017-04-17 13:46 | HHI.IDPN ---
Subjective Subjective Remarks Patient is a 27-year-old female, who has a complicated medical history, recently underwent procedure for severe menstrual bleeding. She underwent D&C and ablation around March 24. 2 days prior to admission she started having significant abdominal pain, and some nausea. She also has had some fever and chills. She had episodes of diarrhea, but that has resolved. She also noted some mucousy bloody vaginal drainage. She presented to the hospital, and imaging studies showed significant inflammatory changes in the pelvis and possibly tubo-ovarian abscess. She has the transplanted kidney with hydronephrosis. Since admission she has been febrile up to 103. Her blood pressure is okay. She still has significant abdominal pain. The pain is in the lower quadrant and it radiates to her back. She denies any respiratory complaint. Patient has renal failure, and is anuric. 2 blood cultures done on admission are now reported as growing Enterobacter. Patient also has had problem with her left knee. She initially had fracture of her left patella, and has had arthroscopic surgery. There was a culture done in May that had Rosie albicans. Patient apparently had been given Diflucan previously. The last time she had any surgery on that left knee here in this area was in August, and this was done at [facility]. Culture it looks like from that surgery did not grow anything. Patient was subsequently referred to a doctor in [place], and she underwent more extensive surgery to her left knee. Culture reportedly grew yeast, and the patient was given Cresemba by the infectious disease physician who [facility]. She has a follow-up appointment with that infectious disease doctor around end of April. Notes reviewed Temps up at midnight Sleepy got medicated Repeat pelvic US noted One BC with Enterobacter not final yet No new (+) BC Antibiotics Zosyn Diflucan Doxycycline Flagyl Lines Port Past Medical History Hypothyroidism Hypertension GERD Endstage renal disease, on HD - diagnosis made when she was about 3 years old CVA in 2012 History of chronic steroid therapy. 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 Vital Signs Date Time Temp Pulse Resp B/P Pulse Ox O2 Delivery O2 Flow Rate FiO2 04/17/17 12:01 13 04/17/17 12:00 98.9 97 14 125/81 100 04/17/17 12:00 96 04/17/17 10:25 16 04/17/17 10:00 81 04/17/17 08:38 100 Nasal Cannula 2.00 04/17/17 08:00 82 04/17/17 08:00 98.1 80 16 106/60 100 04/17/17 06:00 67 04/17/17 04:00 98.3 80 14 87/48 100 04/17/17 04:00 80 04/17/17 02:00 92 04/17/17 00:00 86 04/17/17 00:00 101.8 86 16 104/53 100 04/16/17 22:00 100 04/16/17 20:00 85 04/16/17 20:00 99.3 85 18 113/55 96 04/16/17 18:00 82 04/16/17 16:00 82 04/16/17 16:00 98.9 82 17 97/52 100 04/16/17 14:00 88 04/16/17 04/16/17 04/17/17 15:00 23:00 07:00 Intake Total 928 ml 782 ml 635 ml Output Total 0 ml 275 ml Balance 928 ml 782 ml 360 ml Intake Oral 200 ml 240 ml 120 ml IV Total 478 ml 542 ml 515 ml Packed Cells 250 ml Output Urine Total 0 ml 275 ml # Voids 0 1 # Bowel Movements 0 0 1 . Laboratory Tests Test 04/15/17 04/16/17 04/16/17 04/17/17 16:50 04:30 17:10 05:00 White Blood Count 4.8 TH/MM3 3.0 TH/MM3 3.0 TH/MM3 Red Blood Count 2.42 MIL/MM3 2.22 MIL/MM3 2.28 MIL/MM3 Hemoglobin 7.6 GM/DL 6.7 GM/DL 7.5 GM/DL 6.7 GM/DL Hematocrit 22.7 % 21.3 % 23.3 % 20.6 % Mean Corpuscular Volume 93.6 FL 96.0 FL 90.5 FL Mean Corpuscular Hemoglobin 31.3 PG 30.4 PG 29.3 PG Mean Corpuscular Hemoglobin 33.4 % 31.7 % 32.3 % Concent Red Cell Distribution Width 24.2 % 25.4 % 28.4 % Platelet Count 155 TH/MM3 100 TH/MM3 60 TH/MM3 Mean Platelet Volume 7.7 FL 7.7 FL 7.9 FL Neutrophils (%) (Auto) 91.8 % 83.1 % 82.2 % Lymphocytes (%) (Auto) 1.8 % 3.2 % 2.5 % Monocytes (%) (Auto) 6.1 % 13.2 % 15.1 % Eosinophils (%) (Auto) 0.0 % 0.1 % 0.0 % Basophils (%) (Auto) 0.3 % 0.4 % 0.2 % Neutrophils # (Auto) 4.4 TH/MM3 2.5 TH/MM3 2.5 TH/MM3 Lymphocytes # (Auto) 0.1 TH/MM3 0.1 TH/MM3 0.1 TH/MM3 Monocytes # (Auto) 0.3 TH/MM3 0.4 TH/MM3 0.5 TH/MM3 Eosinophils # (Auto) 0.0 TH/MM3 0.0 TH/MM3 0.0 TH/MM3 Basophils # (Auto) 0.0 TH/MM3 0.0 TH/MM3 0.0 TH/MM3 CBC Comment AUTO DIFF AUTO DIFF AUTO DIFF Differential Total Cells 100 100 100 Counted Neutrophils % (Manual) 78 % 83 % 77 % Band Neutrophils % 13 % 7 % 6 % Lymphocytes % 3 % 5 % 4 % Monocytes % 6 % 5 % 10 % Neutrophils # (Manual) 4.4 TH/MM3 2.7 TH/MM3 2.6 TH/MM3 Differential Comment FINAL DIFF FINAL DIFF FINAL DIFF MANUAL MANUAL MANUAL Dohle Bodies PRESENT PRESENT Platelet Estimate NORMAL LOW LOW Platelet Morphology Comment NORMAL NORMAL NORMAL Ovalocytes 1+ 1+ 1+ Tear Drop Cells 1+ Haptoglobin 143 MG/DL Metamyelocytes 3 % Laboratory Tests Test 04/15/17 04/16/17 04/17/17 16:50 04:30 07:20 Sodium Level 134 MEQ/L 136 MEQ/L 136 MEQ/L Potassium Level 3.8 MEQ/L 4.1 MEQ/L 3.7 MEQ/L Chloride Level 95 MEQ/L 98 MEQ/L 101 MEQ/L Carbon Dioxide Level 23.1 MEQ/L 20.2 MEQ/L 18.5 MEQ/L Anion Gap 16 MEQ/L 18 MEQ/L 17 MEQ/L Blood Urea Nitrogen 29 MG/DL 33 MG/DL 34 MG/DL Creatinine 3.96 MG/DL 4.12 MG/DL 5.93 MG/DL Estimat Glomerular Filtration 13 ML/MIN 13 ML/MIN 8 ML/MIN Rate Random Glucose 75 MG/DL 41 MG/DL 90 MG/DL Lactic Acid Level 1.3 mmol/L 0.5 mmol/L Calcium Level 7.9 MG/DL 7.5 MG/DL 7.8 MG/DL Total Bilirubin 0.6 MG/DL 0.6 MG/DL 0.7 MG/DL Aspartate Amino Transf 16 U/L 13 U/L 9 U/L (AST/SGOT) Alanine Aminotransferase 13 U/L 10 U/L 9 U/L (ALT/SGPT) Alkaline Phosphatase 349 U/L 294 U/L 264 U/L Total Protein 5.1 GM/DL 4.6 GM/DL 4.4 GM/DL Albumin 2.2 GM/DL 2.0 GM/DL 1.8 GM/DL Phosphorus Level 4.6 MG/DL Magnesium Level 2.1 MG/DL Microbiology Date/Time Procedure Status Source Growth 04/15/17 16:50 Aerobic Blood Culture - Preliminary Resulted Blood Peripheral NO GROWTH IN 2 DAYS 04/15/17 16:50 Anaerobic Blood Culture - Preliminary Resulted Blood Peripheral NO GROWTH IN 2 DAYS 04/15/17 17:10 Aerobic Blood Culture - Preliminary Resulted Blood Peripheral Enterobacter Species 04/15/17 17:10 Anaerobic Blood Culture - Preliminary Resulted Gram Negative Manjeet 04/16/17 13:45 Aerobic Blood Culture - Preliminary Resulted Blood Peripheral NO GROWTH IN 1 DAY 04/16/17 13:45 Anaerobic Blood Culture - Preliminary Resulted Blood Peripheral NO GROWTH IN 1 DAY 04/16/17 13:50 Aerobic Blood Culture - Preliminary Resulted Blood Peripheral NO GROWTH IN 1 DAY 04/16/17 13:50 Anaerobic Blood Culture - Preliminary Resulted Blood Peripheral NO GROWTH IN 1 DAY Imaging Pelvis Ultrasound 04/17/17 0000 Signed Impressions: Service Date/Time: Monday, April 17, 2017 11:32 - CONCLUSION: There are complex adnexal masses bilaterally and a normal left ovary is not visualized, however the right ovary is visualized and the above-mentioned adnexal mass appears to be separate from it. Possibility of pyosalpinx should be entertained although the left ovary is not seen and therefore tubo-ovarian abscess in the left ovary is not excluded. Tin Spencer MD Chest X-Ray 04/16/17 0000 Signed Impressions: Service Date/Time: Sunday, April 16, 2017 03:44 - CONCLUSION: No acute disease Chris Myrick MD Pelvis MRI 04/15/17 0000 Signed Impressions: Service Date/Time: Saturday, April 15, 2017 18:39 - CONCLUSION: 1. The uterus is normal in appearance without obvious endometrial thickening or mass. 2. Normal appearing ovaries are not visualized. In the adnexal region bilaterally dilated tortuous tubular structures are seen with a cystic complex appearance concerning for bilateral hydrosalpinx and tubo-ovarian abscess formation given the extensive inflammatory changes should be considered. 3. Abnormal circumferential bowel wall thickening involving the rectum. 4. Right lower quadrant transplant kidney with hydronephrosis. Moe Aragon MD Physical Exam GENERAL: Opens eyes easily, chronically ill appearing female, not in respiratory distress. Has Cushingoid facies SKIN: Warm and dry. No generalized rash, no ecchymoses and no evidence of embolic lesions. HEAD: Atraumatic. Normocephalic. No temporal wasting, or tenderness. EYES: [place] conjunctiva. No petechia or hemorrhage. Pupils equal, round and reactive to light. Extraocular movements full and intact. No scleral icterus. No injection or drainage. EARS, NOSE AND THROAT: Nose without bleeding or purulent nasal discharge. No sinus tenderness. Mucous membranes pink and moist. No oral lesions noted. No exudate. No oral thrush. NECK: Trachea midline. Supple and not tender, no meningeal signs CARDIOVASCULAR: Regular rate and rhythm. No murmurs, rubs or gallops heard RESPIRATORY: Clear to auscultation. Breath sounds equal bilaterally. No rales , wheezing or rhonchi. Decreased at baes. Port in R upper chest, no evidence of infection ABDOMEN: Distended, hypoactive bowel sounds has scars compatible with multiple abdominal surgeries, has diffuse abdominal tenderness with mild guarding. EXTREMITIES: No clubbing, cyanosis. No pedal edema. LLE larger compared to the RLE. Her L knee has effusion, healed incisions with some scabs present, not red, slightly warm, able to flex to about 45 degrees. No calf tenderness. Well perfused and warm. NEUROLOGICAL: Awake and alert. Cranial nerves grossly intact. Motor grossly within normal limits. PSYCHIATRIC: Normal affect, calm and cooperative. LINE: Port with no evidence of infection Assessment & Plan Remarks IMPRESSION Enterobacter sepsis, ?source - has possible TOA on imaging studies - recent D and C, and ablation for heavy bleeding; not sexually active - has some rectal wall thickening - has port ESRD, previous transplant x 5, last one done 2014 - on HD had AVG in her L upper arm Infection L knee, with yeast , OR end of January, has been on Cresemba, clinically improving RECOMMENDATION Continue Zosyn Also on Doxy and Diflucan Continue Flagyl Follow C/S Await records from [facility] to get more info on her L knee infection Monitor progress Aury Cannon MD Apr 17, 2017 13:46
[2017-04-17 14:00] LABS: BASOPHIL % 0.1 % (0.0-2.0); EOSINOPHIL % 0.2 % (0.0-4.0); HEMATOCRIT 27.9 % (35.0-46.0); LYMPH % 2.8 % (9.0-44.0); LYMPHOCYTE # 0.1 TH/MM3 (1.0-4.8); MEAN CELL VOLUME 90.4 FL (80.0-100.0); MEAN CORPUSCULAR HEMOGLOBIN 29.1 PG (27.0-34.0); MEAN CORPUSCULAR HGB CONC 32.2 % (32.0-36.0); MONO % 12.2 % (0.0-8.0); NEUT % 84.7 % (16.0-70.0); PLATELET COUNT 71 TH/MM3 (150-450); RED BLOOD COUNT 3.08 MIL/MM3 (4.00-5.30); WHITE BLOOD COUNT 3.5 TH/MM3 (4.0-11.0)
[2017-04-17 14:04] LABS: HEMO FLAGS AUTO DIFF
[2017-04-17 14:34] LABS: BANDS 11 % (0-6); EOSINOPHILS 1 % (0-4); METAMYELOCYTES 1 % (0-1); NEUTROPHIL # MANUAL DIFF 3.3 TH/MM3 (1.8-7.7); POLYS (SEG NEUTROPHILS) 81 % (16-70); WBC DIFF SAMPLE 100
[2017-04-17 14:35] LABS: DOHLE BODIES PRESENT (NONE SEEN)
[2017-04-17 14:36] LABS: OVALOCYTES 1+ (NORMAL); PLATELET ESTIMATE SMEAR LOW (NORMAL)
[2017-04-17 14:38] LABS: PLATELET MORPHOLOGY NORMAL (NORMAL); SCAN/DIFF FINAL DIFF MANUAL
[2017-04-17 14:40] LABS: CRENATED RBCS 1+ (NORMAL); TOXIC GRANULATION 1+ (NORMAL)
--- NOTE | 2017-04-17 15:43 | HHI.CCPN ---
Subjective Remarks/Hospital Course Hospital Course: 27-year-old female who has a chronic renal condition that caused early renal failure in her teens now status post 5 transplants, has had issues of chronic immunosuppresion, including rapid development of pneumonia and ARDS from a cold ; joint sepsis and recent left knee debridement, CVA and need for chronic anticoagulation and dialysis twice weekly in [place], presents today complaining of abdominal pain, fevers, and diarrhea. . Earlier this month, she called MAIL TECHNICIAN with extremely heavily bleeding despite placement of mirena IUD. This was so profound she bled to a hgb< 5 and required ablation and transfusion. She did well the first two weeks and then developed the above symptoms two days ago. She was started on by mouth antibiotics by her MAIL TECHNICIAN physician but her symptoms progressed and she presents to ED today after dialysis. MRI obtained today show unremarkable uterus BUT suggests bilateral TOAs which is unexpected. She is followed by MAIL TECHNICIAN with desire to avoid surgical intervention given co morbidities. Subjective: 04/16: complaints of abdominal pain not well-controlled with current percocet. hypoglycemic overnight requiring d50w x 1. hemodynamics stabilized. 04/17: abdominal pain is stable. off vasopressors. thrombocytopenic and anemic this morning requiring 2 units prbc and platelets. no evidence of DIC based on high fibrinogen. otherwise clinically stable. again discussed care with machine packer, will plan for conservative management with iv abx and repeat imaging before pursuing surgical options, unless she clinically declines. Objective Vital Signs Date Time Temp Pulse Resp B/P Pulse Ox O2 Delivery O2 Flow Rate FiO2 04/17/17 14:00 80 04/17/17 13:27 13 04/17/17 12:00 98.9 125/81 100 04/17/17 08:38 Nasal Cannula 2.00 Intake and Output 04/16/17 04/16/17 04/16/17 07:59 15:59 23:59 Intake Total 1065 ml 928 ml 782 ml Output Total 0 ml 0 ml Balance 1065 ml 928 ml 782 ml Result Diagram: 04/17/17 1320 04/17/17 0720 Objective Remarks GENERAL: young chronically ill-appearing female, lying in bed, in distress due to pain SKIN: Warm and dry. HEAD: Normocephalic. EYES: No scleral icterus. No injection or drainage. NECK: trachea midline. No JVD. CARDIOVASCULAR: Regular rate and rhythm. sinus by tele. RESPIRATORY: equal chest rise. on room air. GASTROINTESTINAL: Abdomen soft, moderately tender to palpation over pelvis. only mildly diffusely tender in the upper quadrants. no guarding or rebound. nondistended. MUSCULOSKELETAL: No cyanosis, or edema. EXTREMITIES: No clubbing cyanosis or edema Neuro: awake, alert, oriented. RASS 0. no focal deficits. A/P Assessment and Plan Assessment: 27yF with ESRD, severe tuboovarian abscess, severe sepsis, possible fungal post-op knee infection. Clinically not worsening, though not completely improving either. Blood cultures growing enterobacter. Have discussed options at length with Dr. Oro and Dr. Espinoza and will plan to treat conservatively with iv abx and nonsurgically unless she clinically declines. Appreciate ID involvement. Abdominal pain- severe - secondary to TOA. - oxycodone 10mg po q4h prn - dilaudid 0.5mg iv q3h prn Severe Sepsis Tubo-ovarian Abscess Enterobacter bacteremia - f/u blood cultures- growing enterobacter - continue Zosyn, Flagyl - Infectious disease consult - Appreciate MAIL TECHNICIAN Rosie wound infection -- unclear if colonization or infection, but immunocompromised and clinically toxic appearing -- fluconazole, renally adjusted iv. -- ID consult. Hypoglycemia- resolved. -- prn d50w. -- glucose checks q4h -- NS to d5NS @ 84cc/hr. End-stage renal disease - Hemodialysis per nephrology - consult nephrology Anemia secondary to critical illness and ESRD- worsening today -- received 1 unit prbc 04/16 -- 2 units prbc 04/17 -- recheck post-transfusion H&H. -- goal hgb > 7 Thrombocytopenia -- likely secondary to sepsis. low probability HIT -- 1 unit platelets transfused today given her anemia and critical illness. -- goal plt > 50k. Hypothyroidism - Levothyroxin Hypertension - Clonidine when necessary GERD - Pantoprazole DVT GI prophylaxis - Teds SCDs subcutaneous heparin - Pantoprazole Dispo: remain in ICU. Hilario Smith MD Apr 17, 2017 15:43
[2017-04-18] VITALS (13 sets, daily range): BP systolic 106–125; BP diastolic 59–75; PULSE 72–93; RESP 14–31; TEMP 98.5–102.3; O2SAT 98–100
[2017-04-18] MEDS: PROCHLORPERAZINE INJ 10 MG/2 ML VIAL IV PUSH PRN ×2 (00:37→08:22)
[2017-04-18] MEDS: HYDROmorphone HCL PF 1 MG/ML VIAL IV PUSH PRN ×6 (02:41→22:21)
[2017-04-18 03:22] LABS: C. DIFF EPI 027 PRESUMPTIVE NEGATIVE (NEGATIVE)
[2017-04-18] MEDS: INSULIN NovoLIN REGULAR SUPPLEMENTAL SCALE SQ SCH ×6 (04:00→20:00)
[2017-04-18 04:35] LABS: C. DIFF TOXIN PCR POSITIVE (NEGATIVE)
[2017-04-18] MEDS: PIPERACIL-TAZO 2.25 GM PREMIX 50 ML IV SCH ×3 (05:06→23:07)
[2017-04-18] MEDS: metroNIDAZOLE 500 MG TAB PO SCH ×3 (05:06→21:53)
[2017-04-18] MEDS: CHLORHEXIDINE GLUCONATE 2 % 1 PACK (2 CLOTHS) TOP SCH (05:08)
[2017-04-18] MEDS: ONDANSETRON HCL 4 MG/2 ML VIAL IV PRN ×2 (05:49→10:25)
[2017-04-18 06:02] LABS: HEMATOCRIT 26.3 % (35.0-46.0); MEAN CELL VOLUME 89.3 FL (80.0-100.0); MEAN CORPUSCULAR HEMOGLOBIN 29.6 PG (27.0-34.0); MEAN CORPUSCULAR HGB CONC 33.2 % (32.0-36.0); PLATELET COUNT 54 TH/MM3 (150-450); RED BLOOD COUNT 2.95 MIL/MM3 (4.00-5.30); RED CELL DISTRIBUTION WIDTH 25.4 % (11.6-17.2); WHITE BLOOD COUNT 3.8 TH/MM3 (4.0-11.0)
[2017-04-18 06:07] LABS: POTASSIUM 3.4 MEQ/L (3.5-5.1); REVIEW FLAG FINAL
[2017-04-18] MEDS: SODIUM CHLORIDE 0.9% FLUSH 10 ML FLUSH SCH ×2 (08:19→21:00)
[2017-04-18] MEDS: DOXYCYCLINE INJ 100 MG in SODIUM CHLORIDE 0.9% INJ 100 ML IV SCH (08:20)
[2017-04-18] MEDS: SODIUM CHLORIDE 0.9% FLUSH 10 ML FLUSH PRN (08:20)
[2017-04-18] MEDS: FAMOTIDINE 20 MG/2 ML VIAL IV PUSH SCH ×2 (08:20→21:49)
[2017-04-18] MEDS: CHOLECALCIFEROL (VIT D3) 1000 UNIT TAB PO SCH (08:21)
[2017-04-18] MEDS: DRONEDARONE 400 MG TAB PO SCH ×2 (08:21→21:52)
[2017-04-18] MEDS: DOCUSATE SODIUM 50 MG/SENNA 8.6 MG TAB PO SCH ×2 (08:27→21:00)
[2017-04-18] MEDS: HEPARIN SODIUM - SQ 10,000 UNITS/ML VIAL SQ SCH ×2 (08:28→21:00)
[2017-04-18] MEDS: DEXT 5%-NACL 0.9% 1000 ML INJ 1,000 ML IV SCH ×2 (08:31→22:30)
[2017-04-18] MEDS: ASPIRIN EC 81 MG TABEC PO SCH (09:00)
[2017-04-18] MEDS: FLUCONAZOLE 200 MG PREMIX BAG 100 ML IV SCH (10:06)
--- NOTE | 2017-04-18 11:12 | HHI.PR ---
Subjective Remarks very painful after bed changed from diarrhea has bilateral shoulder pain unable to eat having diarrhea Objective - Vital Signs Date Time Temp Pulse Resp B/P Pulse Ox O2 Delivery O2 Flow Rate FiO2 04/18/17 08:00 98.5 78 31 125/66 98 04/18/17 07:27 100 Nasal Cannula 2.00 04/18/17 06:00 72 04/18/17 04:00 76 04/18/17 04:00 98.7 76 20 106/59 100 04/18/17 02:00 92 04/18/17 00:00 102.3 93 17 115/67 98 04/18/17 00:00 93 04/17/17 22:00 93 04/17/17 20:00 88 04/17/17 20:00 98.7 88 13 122/72 100 04/17/17 18:00 96 04/17/17 16:51 16 04/17/17 16:00 99.5 88 18 115/71 100 04/17/17 16:00 86 04/17/17 14:00 80 04/17/17 12:01 13 04/17/17 12:00 98.9 97 14 125/81 100 04/17/17 12:00 96 I/O 04/17/17 04/17/17 04/17/17 04/18/17 04/18/17 04/18/17 07:00 15:00 23:00 07:00 15:00 23:00 Intake Total 635 ml 1532 ml 1068 ml 1088 ml Output Total 275 ml 275 ml Balance 360 ml 1257 ml 1068 ml 1088 ml Intake Oral 120 ml 240 ml 120 ml 120 ml IV Total 515 ml 542 ml 948 ml 968 ml Packed Cells 500 ml Platelets 250 ml Output Urine Total 275 ml 125 ml Emesis 150 ml # Voids 1 1 0 0 # Bowel Movements 1 1 0 2 Result Diagram: 04/18/17 0520 04/18/17 0520 Other Results C diff positive. Unclear if admitted with this given the initial MRI's suggestion of inflammation in sigmoid platelets declining while holding H & H and WBC--need to replace before any intervention abdomen tender + bowel sounds creatinine climbing--needs dialysis urine output qualitatively down per patient need may for I and O's Medications and IVs formal consult to Manjeet Nichole speak with Interventional radiology about percutaneous drainage of accessible tubal masses-- need antibiotics to reach site of infection if there have phone call into her doctor in [facility] with transplant institute on flagyl but IV needs seqentials ON her legs discussed with Dr. Gamble. discussed with mom and patient Ayala Espinoza MD Apr 18, 2017 11:12
[2017-04-18] MEDS ORDERED: LORazepam 2 MG/ML VIAL IV PUSH ONE (11:15)
--- NOTE | 2017-04-18 12:11 | HHI.CCPN ---
Subjective Remarks/Hospital Course Hospital Course: 27-year-old female who has a chronic renal condition that caused early renal failure in her teens now status post 5 transplants, has had issues of chronic immunosuppresion, including rapid development of pneumonia and ARDS from a cold ; joint sepsis and recent left knee debridement, CVA and need for chronic anticoagulation and dialysis twice weekly in [place], presents today complaining of abdominal pain, fevers, and diarrhea. . Earlier this month, she called DOG OBEDIENCE INSTRUCTOR with extremely heavily bleeding despite placement of mirena IUD. This was so profound she bled to a hgb< 5 and required ablation and transfusion. She did well the first two weeks and then developed the above symptoms two days ago. She was started on by mouth antibiotics by her DOG OBEDIENCE INSTRUCTOR physician but her symptoms progressed and she presents to ED today after dialysis. MRI obtained today show unremarkable uterus BUT suggests bilateral TOAs which is unexpected. She is followed by DOG OBEDIENCE INSTRUCTOR with desire to avoid surgical intervention given co morbidities. Subjective: 04/16: complaints of abdominal pain not well-controlled with current percocet. hypoglycemic overnight requiring d50w x 1. hemodynamics stabilized. 04/17: abdominal pain is stable. off vasopressors. thrombocytopenic and anemic this morning requiring 2 units prbc and platelets. no evidence of DIC based on high fibrinogen. otherwise clinically stable. again discussed care with surgical scrub technician, will plan for conservative management with iv abx and repeat imaging before pursuing surgical options, unless she clinically declines. 04/18: Overnight results patient's C. difficile positive. By mouth Flagyl discontinued. IV Flagyl initiated with by mouth vancomycin. ID following. Patient noted to be thrombocytopenic concern for possible surgical intervention secondary to bilateral adnexal masses. We'll transfuse 2 units of platelets this a.m., and insertion of Calvo catheter per PASTING MACHINE OPERATOR recommendations. Ofirmev added for 24 hours for pain control. Objective Vital Signs Date Time Temp Pulse Resp B/P Pulse Ox O2 Delivery O2 Flow Rate FiO2 04/18/17 08:00 98.5 78 31 125/66 98 04/18/17 07:27 Nasal Cannula 2.00 Intake and Output 04/17/17 04/17/17 04/18/17 08:00 16:00 00:00 Intake Total 635 ml 1532 ml 1068 ml Output Total 275 ml 275 ml Balance 360 ml 1257 ml 1068 ml Result Diagram: 04/18/1751904/18/1720 Other Results Microbiology Date/Time Procedure Status Source Growth 04/15/17 17:10 Aerobic Blood Culture - Final Complete Blood Peripheral Enterobacter Cloacae 04/15/17 17:10 Anaerobic Blood Culture - Final Complete Enterobacter Cloacae Objective Remarks GENERAL: young chronically ill-appearing female, lying in bed, in distress due to pain SKIN: Warm and dry. HEAD: Normocephalic. EYES: No scleral icterus. No injection or drainage. NECK: trachea midline. No JVD. CARDIOVASCULAR: Regular rate and rhythm. sinus by tele. RESPIRATORY: equal chest rise. on room air. GASTROINTESTINAL: Abdomen soft, moderately tender to palpation over pelvis. only mildly diffusely tender in the upper quadrants. no guarding or rebound. nondistended. MUSCULOSKELETAL: No cyanosis, or edema. EXTREMITIES: No clubbing cyanosis or edema Neuro: awake, alert, oriented. RASS 0. no focal deficits. Procedures Possible surgical intervention vs. percutaneous via IR A/P Assessment and Plan Assessment: 27yF with ESRD, severe tuboovarian abscess, severe sepsis, possible fungal post-op knee infection. Clinically not worsening, though not completely improving either. Blood cultures growing enterobacter. Have discussed options at length with Dr. Oro and Dr. Espinoza and will plan to treat conservatively with iv abx and nonsurgically unless she clinically declines. Appreciate ID involvement. Abdominal pain- severe - secondary to tubo-ovarian abscesses - oxycodone 10mg po q4h prn - dilaudid 0.5mg iv q3h prn Severe Sepsis Tubo-ovarian Abscess Enterobacter bacteremia C. difficile - f/u blood cultures- growing enterobacter - continue Zosyn, Flagyl, vancomycin added - Infectious disease following Dr. FINE the - DOG OBEDIENCE INSTRUCTOR following Dr. eDe Rosie wound infection -- unclear if colonization or infection, but immunocompromised and clinically toxic appearing -- fluconazole, renally adjusted iv. -- ID consult. Hypoglycemia- resolved. -- prn d50w. -- glucose checks q4h -- NS to d5NS @ 84cc/hr. End-stage renal disease - Hemodialysis per nephrology - consult nephrology Anemia secondary to critical illness and ESRD- worsening today -- received 1 unit prbc 04/16 -- 2 units prbc 04/17 -- recheck post-transfusion H&H. -- goal hgb > 7 Thrombocytopenia -- likely secondary to sepsis. low probability HIT 1u PLT 04/17 -- 2 units platelets transfused today given her anemia and critical illness. -- goal plt > 50k. Hypothyroidism - Levothyroxine Hypertension - Clonidine when necessary GERD - Pantoprazole DVT GI prophylaxis - Teds SCDs subcutaneous heparin - Pantoprazole Dispo: Discussed with Dr. Dan. Possible plan for surgical intervention patient will receive 2 units of platelets given her severe thrombocytopenia, local transplant surgeon also consulted per Sy. This patient remains critically ill with one or more organ systems which are or may become a threat to life. I have spent in excess of 30 minutes discontinuously in the care and management of this patient. This time is exclusive of procedures, and includes, but is not limited to, evaluation of the patient, review of the medical record, discussions with family, consultants, nursing staff, or respiratory therapy, and documentation in the medical record. Physician Aimee Jennings MD Apr 18, 2017 12:11
[2017-04-18] MEDS: ACETAMINOPHEN 1000 MG/100 ML VIAL IV SCH ×3 (12:26→23:07)
--- NOTE | 2017-04-18 12:28 | HHI.PR ---
Objective - Vital Signs Date Time Temp Pulse Resp B/P Pulse Ox O2 Delivery O2 Flow Rate FiO2 04/18/17 08:00 98.5 78 31 125/66 98 04/18/17 07:27 100 Nasal Cannula 2.00 04/18/17 06:00 72 04/18/17 04:00 76 04/18/17 04:00 98.7 76 20 106/59 100 04/18/17 02:00 92 04/18/17 00:00 102.3 93 17 115/67 98 04/18/17 00:00 93 04/17/17 22:00 93 04/17/17 20:00 88 04/17/17 20:00 98.7 88 13 122/72 100 04/17/17 18:00 96 04/17/17 16:51 16 04/17/17 16:00 99.5 88 18 115/71 100 04/17/17 16:00 86 04/17/17 14:00 80 I/O 04/17/17 04/17/17 04/17/17 04/18/17 04/18/17 04/18/17 06:59 14:59 22:59 06:59 14:59 22:59 Intake Total 635 ml 1532 ml 1068 ml 1088 ml Output Total 275 ml 275 ml Balance 360 ml 1257 ml 1068 ml 1088 ml Intake Oral 120 ml 240 ml 120 ml 120 ml IV Total 515 ml 542 ml 948 ml 968 ml Packed Cells 500 ml Platelets 250 ml Output Urine Total 275 ml 125 ml Emesis 150 ml # Voids 1 1 0 0 # Bowel Movements 1 1 0 2 Result Diagram: 04/18/17 0520 04/18/17 0520 A/P Assessment and Plan Discussed case with Dr. Nichole who will see Shilpa and advise. Discussed with Dr. Dakota Harris at who works with the [facility] and put him in the loop. If she is stabilized and we feel she would be better served at that center, he would accept her to that hospital. Spoke with Dr. Myrick of interventional radiology and he will review Shilpa's chart in the event we want to consider percutaneous drainage. Ordered non contrast CT to assess shoulder pain which could be referred and that is worrisome. Ayala Espinoza MD Apr 18, 2017 12:27
--- NOTE | 2017-04-18 12:54 | HHI.IDPN ---
Subjective Subjective Remarks Patient is a 27-year-old female, who has a complicated medical history, recently underwent procedure for severe menstrual bleeding. She underwent D&C and ablation around March 24. 2 days prior to admission she started having significant abdominal pain, and some nausea. She also has had some fever and chills. She had episodes of diarrhea, but that has resolved. She also noted some mucousy bloody vaginal drainage. She presented to the hospital, and imaging studies showed significant inflammatory changes in the pelvis and possibly tubo-ovarian abscess. She has the transplanted kidney with hydronephrosis. Since admission she has been febrile up to 103. Her blood pressure is okay. She still has significant abdominal pain. The pain is in the lower quadrant and it radiates to her back. She denies any respiratory complaint. Patient has renal failure, and is anuric. 2 blood cultures done on admission are now reported as growing Enterobacter. Patient also has had problem with her left knee. She initially had fracture of her left patella, and has had arthroscopic surgery. There was a culture done in May that had Rosie albicans. Patient apparently had been given Diflucan previously. The last time she had any surgery on that left knee here in this area was in August, and this was done at [facility]. Culture it looks like from that surgery did not grow anything. Patient was subsequently referred to a doctor in [place], and she underwent more extensive surgery to her left knee. Culture reportedly grew yeast, and the patient was given Cresemba by the infectious disease physician who saw her at [facility]. She has a follow-up appointment with that infectious disease doctor around end of April. Notes reviewed Temps up at midnight Sleepy got medicated One BC with Enterobacter No new (+) BC Has diarrhea C diff (+) Spoke with Dr Nichole (Transplant) Still with abdominal pain For CT A/P this afternoon Antibiotics Zosyn Diflucan Doxycycline Flagyl Lines Port Past Medical History Hypothyroidism Hypertension GERD Endstage renal disease, on HD - diagnosis made when she was about 3 years old CVA in 2012 History of chronic steroid therapy. 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 Vital Signs Date Time Temp Pulse Resp B/P Pulse Ox O2 Delivery O2 Flow Rate FiO2 04/18/17 08:00 98.5 78 31 125/66 98 04/18/17 07:27 100 Nasal Cannula 2.00 04/18/17 06:00 72 04/18/17 04:00 76 04/18/17 04:00 98.7 76 20 106/59 100 04/18/17 02:00 92 04/18/17 00:00 102.3 93 17 115/67 98 04/18/17 00:00 93 04/17/17 22:00 93 04/17/17 20:00 88 04/17/17 20:00 98.7 88 13 122/72 100 04/17/17 18:00 96 04/17/17 16:51 16 04/17/17 16:00 99.5 88 18 115/71 100 04/17/17 16:00 86 04/17/17 14:00 80 04/17/17 04/17/17 04/18/17 14:59 22:59 06:59 Intake Total 1532 ml 1068 ml 1088 ml Output Total 275 ml Balance 1257 ml 1068 ml 1088 ml Intake Oral 240 ml 120 ml 120 ml IV Total 542 ml 948 ml 968 ml Packed Cells 500 ml Platelets 250 ml Output Urine Total 125 ml Emesis 150 ml # Voids 1 0 0 # Bowel Movements 1 0 2 . Laboratory Tests Test 04/16/17 04/17/17 04/17/17 04/18/17 17:10 05:00 13:20 05:20 Hemoglobin 7.5 GM/DL 6.7 GM/DL 9.0 GM/DL 8.7 GM/DL Hematocrit 23.3 % 20.6 % 27.9 % 26.3 % Haptoglobin 143 MG/DL White Blood Count 3.0 TH/MM3 3.5 TH/MM3 3.8 TH/MM3 Red Blood Count 2.28 MIL/MM3 3.08 MIL/MM3 2.95 MIL/MM3 Mean Corpuscular Volume 90.5 FL 90.4 FL 89.3 FL Mean Corpuscular Hemoglobin 29.3 PG 29.1 PG 29.6 PG Mean Corpuscular Hemoglobin 32.3 % 32.2 % 33.2 % Concent Red Cell Distribution Width 28.4 % 25.0 % 25.4 % Platelet Count 60 TH/MM3 71 TH/MM3 54 TH/MM3 Mean Platelet Volume 7.9 FL 7.8 FL 8.4 FL Neutrophils (%) (Auto) 82.2 % 84.7 % Lymphocytes (%) (Auto) 2.5 % 2.8 % Monocytes (%) (Auto) 15.1 % 12.2 % Eosinophils (%) (Auto) 0.0 % 0.2 % Basophils (%) (Auto) 0.2 % 0.1 % Neutrophils # (Auto) 2.5 TH/MM3 3.0 TH/MM3 Lymphocytes # (Auto) 0.1 TH/MM3 0.1 TH/MM3 Monocytes # (Auto) 0.5 TH/MM3 0.4 TH/MM3 Eosinophils # (Auto) 0.0 TH/MM3 0.0 TH/MM3 Basophils # (Auto) 0.0 TH/MM3 0.0 TH/MM3 CBC Comment AUTO DIFF AUTO DIFF Differential Total Cells 100 100 Counted Neutrophils % (Manual) 77 % 81 % Band Neutrophils % 6 % 11 % Lymphocytes % 4 % 3 % Monocytes % 10 % 3 % Neutrophils # (Manual) 2.6 TH/MM3 3.3 TH/MM3 Metamyelocytes 3 % 1 % Differential Comment FINAL DIFF FINAL DIFF MANUAL MANUAL Dohle Bodies PRESENT PRESENT Platelet Estimate LOW LOW Platelet Morphology Comment NORMAL NORMAL Ovalocytes 1+ 1+ Eosinophils % 1 % Toxic Granulation 1+ Toxic Vacuolation Crenated Cell 1+ Laboratory Tests Test 04/17/17 04/18/17 07:20 05:20 Sodium Level 136 MEQ/L 142 MEQ/L Potassium Level 3.7 MEQ/L 3.4 MEQ/L Chloride Level 101 MEQ/L 105 MEQ/L Carbon Dioxide Level 18.5 MEQ/L 17.0 MEQ/L Anion Gap 17 MEQ/L 20 MEQ/L Blood Urea Nitrogen 34 MG/DL 33 MG/DL Creatinine 5.93 MG/DL 6.41 MG/DL Estimat Glomerular Filtration 8 ML/MIN 8 ML/MIN Rate Random Glucose 90 MG/DL 103 MG/DL Calcium Level 7.8 MG/DL 8.2 MG/DL Total Bilirubin 0.7 MG/DL Aspartate Amino Transf 9 U/L (AST/SGOT) Alanine Aminotransferase 9 U/L (ALT/SGPT) Alkaline Phosphatase 264 U/L Total Protein 4.4 GM/DL Albumin 1.8 GM/DL Microbiology Date/Time Procedure Status Source Growth 04/15/17 16:50 Aerobic Blood Culture - Preliminary Resulted Blood Peripheral NO GROWTH IN 3 DAYS 04/15/17 16:50 Anaerobic Blood Culture - Preliminary Resulted Blood Peripheral NO GROWTH IN 3 DAYS 04/15/17 17:10 Aerobic Blood Culture - Final Complete Blood Peripheral Enterobacter Cloacae 04/15/17 17:10 Anaerobic Blood Culture - Final Complete Enterobacter Cloacae 04/16/17 13:45 Aerobic Blood Culture - Preliminary Resulted Blood Peripheral NO GROWTH IN 2 DAYS 04/16/17 13:45 Anaerobic Blood Culture - Preliminary Resulted Blood Peripheral NO GROWTH IN 2 DAYS 04/16/17 13:50 Aerobic Blood Culture - Preliminary Resulted Blood Peripheral NO GROWTH IN 2 DAYS 04/16/17 13:50 Anaerobic Blood Culture - Preliminary Resulted Blood Peripheral NO GROWTH IN 2 DAYS Imaging Pelvis Ultrasound 04/17/17 0000 Signed Impressions: Service Date/Time: Monday, April 17, 2017 11:32 - CONCLUSION: There are complex adnexal masses bilaterally and a normal left ovary is not visualized, however the right ovary is visualized and the above-mentioned adnexal mass appears to be separate from it. Possibility of pyosalpinx should be entertained although the left ovary is not seen and therefore tubo-ovarian abscess in the left ovary is not excluded. Tin Spencer MD Chest X-Ray 04/16/17 0000 Signed Impressions: Service Date/Time: Sunday, April 16, 2017 03:44 - CONCLUSION: No acute disease Chris Myrick MD Pelvis MRI 04/15/17 0000 Signed Impressions: Service Date/Time: Saturday, April 15, 2017 18:39 - CONCLUSION: 1. The uterus is normal in appearance without obvious endometrial thickening or mass. 2. Normal appearing ovaries are not visualized. In the adnexal region bilaterally dilated tortuous tubular structures are seen with a cystic complex appearance concerning for bilateral hydrosalpinx and tubo-ovarian abscess formation given the extensive inflammatory changes should be considered. 3. Abnormal circumferential bowel wall thickening involving the rectum. 4. Right lower quadrant transplant kidney with hydronephrosis. Moe Aragon MD Physical Exam GENERAL: Opens eyes easily, chronically ill appearing female, not in respiratory distress. SKIN: Warm and dry. No generalized rash, no ecchymoses and no evidence of embolic lesions. HEAD: Atraumatic. Normocephalic. No temporal wasting, or tenderness. EYES: [place] conjunctiva. No petechia or hemorrhage. Pupils equal, round and reactive to light. No scleral icterus. No injection or drainage. EARS, NOSE AND THROAT: Nose without bleeding or purulent nasal discharge. No sinus tenderness. Mucous membranes pink and moist. No oral lesions noted. NECK: Trachea midline. Supple and not tender, no meningeal signs CARDIOVASCULAR: Regular rate and rhythm. No murmurs, rubs or gallops heard RESPIRATORY: Clear to auscultation. Breath sounds equal bilaterally. No rales , wheezing or rhonchi. Decreased at bases. Port in R upper chest, no evidence of infection ABDOMEN: Distended, hypoactive bowel sounds has scars compatible with multiple abdominal surgeries, has diffuse abdominal tenderness EXTREMITIES: No clubbing, cyanosis. No pedal edema. LLE larger compared to the RLE. Her L knee has effusion, healed incisions with some scabs present, not red, slightly warm, able to flex to about 45 degrees. No calf tenderness. Well perfused and warm. NEUROLOGICAL: Awake and alert. Cranial nerves grossly intact. Motor grossly within normal limits. PSYCHIATRIC: Normal affect, calm and cooperative. LINE: Port with no evidence of infection Assessment & Plan Remarks IMPRESSION Enterobacter sepsis, ?source - has possible TOA on imaging studies - recent D and C, and ablation for heavy bleeding; not sexually active - has some rectal wall thickening - has port ESRD, previous transplant x 5, last one done 2014 - on HD had AVG in her L upper arm Infection L knee, with yeast , OR end of January, has been on Cresemba, clinically improving C diff colitis RECOMMENDATION Continue Zosyn Stop Doxy Continue Diflucan for her knee infection Continue Flagyl, give po Also now on po Dolores D/W DR Nichole - CT guided drainage of fluid collection Follow C/S Await records from [facility] to get more info on her L knee infection Monitor progress D/W RN Spoke with mom D/W Aury Silvestre MD Apr 18, 2017 12:54
[2017-04-18] MEDS ORDERED: metroNIDAZOLE 250 MG INJ 50 ML IV SCH (13:00)
--- NOTE | 2017-04-18 13:05 | PD.CONS ---
History of Present Illness Service [facility] Consult Requested By Ayala Desai MD Reason for Consult Assessment from Transplant Service Primary Care Physician Alcides Monzon MD (Paul) Diagnoses: History of Present Illness Information for this History was obtained from the patient, the patient's mother , and staff. Ms. 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 She underwent a LD KTx from her father in 1993 at . It was placed on her Left side, lasted for 8 years, then returned to PD for 1 year. She received a second LDKTx, (donor was her mother), at [facility], placed on her R side, and lasted 6 years; She returned to PD in 2008 for about 1 year, and received a LD KTx (donor was her friend) at [facility] in 2009 after an allograft L Nephrectomy (removed the first donated kidney), and was placed on the same side (left). The kidney failed due to ischemia, was also removed, and she continued on PD unitl 2010, when she received a LD KTx (donor was friend Ike) from [facility]. She was on an FL/Pred/Cellcept regimen, but lost the graft and in 2011 was returned to dialysis, but on hemodialysis as PD was not done due to adhesions. 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 She underwent bilateral allograft nephrectomies, and was then placed on anticoagulation with Coumadin. She received a DD KTx in 2014, which was approached via midline incision, placed intraperitoneally, and positioned on the Right side. The graft functioned for about 1.5 years and she returned to HD. There is residual function in the graft, as she still voids 1 to 1.5 L UO/ day, and her dialysis was BIW. In June 2016, she fractured her Left patella, underwent arthroscopy in 08/2016 and had an open repair of the knee on 02/23/17. Her mother reports that intra-op cultures grew out fungus (C. Albicans) and she was placed on anti fungals for 3 months. Ms. Siu is not sexually active, and was amenorrheic until around 2 1/2 months ago when she began having abnormal menstrual bleeding leading to menorrhagia. She had a D&C with endometrial ablation 03/24/17 and returned 04/15/17 with abdominal pain, fever, nausea, and diarrhea. CT scan reports possible bilat TOA , allograft kidney with hydronephrosis. Blood cultures + for Enterobacter, stool + for C Diff. Review of Systems ROS Limitations: Clinical Condition, Altered Mental Status Constitutional: COMPLAINS OF: Fatigue, Fever, Chills Respiratory: DENIES: Apneas, Cough, Snoring, Wheezing, Hemoptysis, Sputum production, Shortness of breath Gastrointestinal: COMPLAINS OF: Abdominal pain, Diarrhea, Nausea Genitourinary: COMPLAINS OF: Abnormal vaginal bleeding Musculoskeletal: COMPLAINS OF: Joint Swelling Hematologic/lymphatic: COMPLAINS OF: Bruising Immunologic/allergic: DENIES: Eczema, Urticaria Past Family Social History Allergies: Coded Allergies: Gabapentin (Verified Allergy, Severe, 04/15/17) muscle spasms Past Medical History As above -hypothyroidism Past Surgical History As in HPI Reported Medications Started on [place] 9 mos ago Nulojix, last dose 1 month, 3 days ago Prednisone, last dose 04/14/17 antibiotics antifungal Family History sister with medullary cystic dz Social History does not smoke or drink, no drug use Physical Exam Vital Signs Vital Signs Date Time Temp Pulse Resp B/P Pulse Ox O2 Delivery O2 Flow Rate FiO2 04/18/17 08:00 98.5 78 31 125/66 98 04/18/17 07:27 100 Nasal Cannula 2.00 04/18/17 06:00 72 04/18/17 04:00 76 04/18/17 04:00 98.7 76 20 106/59 100 04/18/17 02:00 92 04/18/17 00:00 102.3 93 17 115/67 98 04/18/17 00:00 93 04/17/17 22:00 93 04/17/17 20:00 88 04/17/17 20:00 98.7 88 13 122/72 100 04/17/17 18:00 96 04/17/17 16:51 16 04/17/17 16:00 99.5 88 18 115/71 100 04/17/17 16:00 86 04/17/17 14:00 80 Physical Exam GENERAL: This is a Cushingoid-appearing patient, in abdominal pain. SKIN: No rashes; small IV site ecchymoses, no lesions. Cool and dry. HEAD: Atraumatic. Normocephalic. No temporal or scalp tenderness. EYES: Pupils equal round and reactive. Extraocular motions intact. No scleral icterus. No injection or drainage. ENT: Nose without bleeding, dry lips NECK: Trachea midline. CARDIOVASCULAR: Regular rate and rhythm RESPIRATORY: No wheezes, rales, or rhonchi. GASTROINTESTINAL: Abdomen with LQ fullness, nondistended. Tenderness to palp in both LQ above incision lines, no pubic pain, (+) flank pain, no guarding, warm skin MUSCULOSKELETAL: L knee edema with healed incision;(+) mild joint tenderness,No calf tenderness. Negative Homans sign bilaterally. NEUROLOGICAL: Awake, not alert. Motor and sensory grossly within normal limits. 3 out of 5 muscle strength in all muscle groups. Normal speech. Laboratory Laboratory Tests Test 04/17/17 04/18/17 04/18/17 04/18/17 13:20 00:30 05:20 12:11 White Blood Count 3.5 3.8 Red Blood Count 3.08 2.95 Hemoglobin 9.0 8.7 Hematocrit 27.9 26.3 Mean Corpuscular Volume 90.4 89.3 Mean Corpuscular Hemoglobin 29.1 29.6 Mean Corpuscular Hemoglobin 32.2 33.2 Concent Red Cell Distribution Width 25.0 25.4 Platelet Count 71 54 Mean Platelet Volume 7.8 8.4 Neutrophils (%) (Auto) 84.7 Lymphocytes (%) (Auto) 2.8 Monocytes (%) (Auto) 12.2 Eosinophils (%) (Auto) 0.2 Basophils (%) (Auto) 0.1 Neutrophils # (Auto) 3.0 Lymphocytes # (Auto) 0.1 Monocytes # (Auto) 0.4 Eosinophils # (Auto) 0.0 Basophils # (Auto) 0.0 CBC Comment AUTO DIFF Differential Total Cells 100 Counted Neutrophils % (Manual) 81 Band Neutrophils % 11 Lymphocytes % 3 Monocytes % 3 Eosinophils % 1 Neutrophils # (Manual) 3.3 Metamyelocytes 1 Differential Comment FINAL DIFF MANUAL Toxic Granulation 1+ Toxic Vacuolation Dohle Bodies PRESENT Platelet Estimate LOW Platelet Morphology Comment NORMAL Ovalocytes 1+ Crenated Cell 1+ Stool C. difficile Toxin (PCR) POSITIVE Stl C. difficile Toxin PRESUMPTIVE Epiderm 027 NEGATIVE Sodium Level 142 Potassium Level 3.4 Chloride Level 105 Carbon Dioxide Level 17.0 Anion Gap 20 Blood Urea Nitrogen 33 Creatinine 6.41 Estimat Glomerular Filtration 8 Rate Random Glucose 103 Calcium Level 8.2 Hepatitis A IgM Antibody NEGATIVE Hepatitis B Surface Antigen NEGATIVE Hepatitis B Core IgM Antibody NEGATIVE Hepatitis C Antibody NEGATIVE Blood Bank Comment Date/Time Procedure Status Source Growth 04/16/17 13:50 Aerobic Blood Culture - Preliminary Resulted Blood Peripheral NO GROWTH IN 2 DAYS 04/16/17 13:50 Anaerobic Blood Culture - Preliminary Resulted Blood Peripheral NO GROWTH IN 2 DAYS 04/15/17 17:10 Aerobic Blood Culture - Final Complete Blood Peripheral Enterobacter Cloacae 04/15/17 17:10 Anaerobic Blood Culture - Final Complete Enterobacter Cloacae Result Diagram: 04/18/17 0520 04/18/17 0520 Imaging Last 72 hours Impressions Pelvis Ultrasound 04/17/17 0000 Signed Impressions: Service Date/Time: Monday, April 17, 2017 11:32 - CONCLUSION: There are complex adnexal masses bilaterally and a normal left ovary is not visualized, however the right ovary is visualized and the above-mentioned adnexal mass appears to be separate from it. Possibility of pyosalpinx should be entertained although the left ovary is not seen and therefore tubo-ovarian abscess in the left ovary is not excluded. Tin Spencer MD Chest X-Ray 04/16/17 0000 Signed Impressions: Service Date/Time: Sunday, April 16, 2017 03:44 - CONCLUSION: No acute disease Chris Myrick MD Assessment and Plan Assessment and Plan 27 yo Transplant recipient with multiple infection sites; a) Allograft function- her transplant kidney still maintains volume regulation ( critical in her ability to tolerate the volumes of IV meds given) with some residual function in electrolyte regulation and solute clearance. She was previously on Nulojix, which is administered monthly indicating a state of therapeutic immunosuppression at the time of admission. Her lymphocyte counts are very low already and she has ongoing infections; would continue to hold on her IS meds until her infections are controlled and responding to therapy. Would be cautious in administration of nephrotoxic agents, although at this time , allograft preservation is secondary to controlling her infections. b) Allograft structure- Radiology studies without reports to suggest parenchymal inflammation or edema to suggest rejection; MRI reports possible stent, if so, likely maintaining urine outflow, given degree of hydronephrosis. c) Pelvic mass-reported as can't rule out TOA, possible bleeding into collection this weekend. Need for decompression beneficial to: -decrease infectious burden on immune system (even if only partially drained) -decrease mass effect on adjacent structures (allograft kidney, abdominal wall, cyst/collection wall) -improve ABx access to the sigrid-inflammatory tissue/ collection borders -possibly improve platelet consumption, unless all attributable to HIT AN initial percutaneous may accomplish these and further improve conditions prior to open drainage, if necessary. Aware of current plans and available for stonecutter assistant. Teo Nichole MD Apr 18, 2017 13:05
[2017-04-18 14:16] LABS: BACTERIA, URINE RARE /hpf; BLOOD, URINE SMALL (NEG); COMMENT (UR) CULT NOT INDICATED; CULTURE IF INDICATED CULT NOT INDICATED; GLUCOSE,URINE NEG (NEG); HYALINE CAST, URINE 3 /lpf (RARE); KETONE, URINE NEG (NEG); NITRITE,URINE NEG (NEG); PH, URINE 6.5 (5.0-8.5); URINE COLOR YELLOW (YELLW/STRAW)
[2017-04-18] MEDS: VANCOMYCIN 500 MG VIAL (FOR ORAL USE ONLY) PO SCH ×3 (14:58→21:53)
--- NOTE | 2017-04-18 15:31 | HHI.NPPN ---
Subjective General Problems: Anemia, Hypertension Renal Failure: End Stage Renal Disease History of Present Illness 27-year-old female with past medical history of hypertension, hypothyroidism, gastroesophageal reflux disease, history of chronic anemia, end-stage renal disease on hemodialysis two times per week, history of multiple renal transplants in the past who was admitted because of heavy vaginal bleeding after she had an IUD placed. I was called to see the patient for the management of dialysis. Additional Remarks Patient is alert, has abd. pain, now going for CT abd. Review of Systems General Constitutional: Fatigue Cardiovascular Cardiac: MUIR Gastrointestinal Gastrointestinal: Abdominal Pain, Nausea & Vomiting Objective Data Data 04/17/17 04/18/17 19:00 07:00 Intake Total 1532 ml 2156 ml Output Total 275 ml Balance 1257 ml 2156 ml Intake Oral 240 ml 240 ml IV Total 542 ml 1916 ml Packed Cells 500 ml Platelets 250 ml Output Urine Total 125 ml Emesis 150 ml # Voids 1 0 # Bowel Movements 1 2 Vital Signs Date Time Temp Pulse Resp B/P Pulse Ox O2 Delivery O2 Flow Rate FiO2 04/18/17 08:00 98.5 78 31 125/66 98 04/18/17 07:27 100 Nasal Cannula 2.00 04/18/17 06:00 72 04/18/17 04:00 76 04/18/17 04:00 98.7 76 20 106/59 100 04/18/17 02:00 92 04/18/17 00:00 102.3 93 17 115/67 98 04/18/17 00:00 93 04/17/17 22:00 93 04/17/17 20:00 88 04/17/17 20:00 98.7 88 13 122/72 100 04/17/17 18:00 96 04/17/17 16:51 16 04/17/17 16:00 99.5 88 18 115/71 100 04/17/17 16:00 86 -: 04/18/17 0520 04/18/17 0520 Physical Exam General Appearance: No Acute Distress, Comfortable Eyes Eye Exam: Pupils Equal Throat Throat Exam: Oral Mucosa [place] & Moist Pulmonary Resp Exam: Breath Sounds Equal, No Distress, Decreased Bases Cardiology CV Exam: Regular, Normal Sinus Rhythm Gastrointestinal/Abdomen GI Exam: Soft, Bowel Sounds Present (mild lower abd. tenderness.), Non- Distended Extremeties Extremities Exam: Trace Edema Neurologic Neuro Exam: Alert, Awake, Oriented Psychiatric Psych Exam: Appropriate Responses Assessment/Plan Assessment Summary: Anemia of CKD, Hypertension, End Stage Renal Disease, Transplant Kidney Status Problem List: (1) Hypertension (2) Hypothyroidism (3) History of CVA (cerebrovascular accident) (4) Renal transplant failure and rejection (5) End stage chronic kidney disease (6) Anemia (7) Sepsis Plan Post transfusion Hgb. is stable. On Zosyn, Doxycycline and Fluconazole. ID is following. Now going for CT abd. Platelets low, transfusing now. K was low. Possible HD later today or tomorrow AM. Veronica Pichardo MD Apr 18, 2017 15:31
--- NOTE | 2017-04-18 16:45 | RADRPT ---
EXAM DATE/TIME: 04/18/2017 16:08 [facility] COMPARISON: MRI PELVIS W/O CONTRAST, April 15, 2017, 18:39. US PELVIS - COMPLETE (HOME FURNISHINGS SALES REPRESENTATIVE,NON-PREG), April 17, 2017, 1 1:32. INDICATIONS : Diffuse abdomen pain. ORAL CONTRAST: No oral contrast ingested. RADIATION DOSE: 11.30 CTDIvol (mGy) MEDICAL HISTORY : Cardiovascular disease. Hypertension. SURGICAL HISTORY : Kidney transplant ENCOUNTER: Initial ACUITY: 1 day PAIN SCALE: 7/10 LOCATION: Bilateral abdomen TECHNIQUE: Volumetric scanning of the abdomen and pelvis was performed. Using automated exposure control and ad justment of the mA and/or kV according to patient size, radiation dose was kept as low as reasonably achievable to obtain optimal diagnostic quality images. DICOM format image data is available electro nically for review and comparison. FINDINGS: The previously noted complex cystic masses/collections within the bilateral adnexa are stable. The u terus is unremarkable. There is a renal transplant within the right lower quadrant. Hepatosplenomeg dina is noted. The gallbladder is distended but demonstrates no calcified gallstones. The patient's redding kidneys are markedly atrophied. Evaluation of the solid organs of the abdomen is limited by t he lack of intravenous contrast. Tiny bilateral pleural effusions with bibasilar atelectasis are not ed. The heart is enlarged. A tiny pericardial effusion is noted. CONCLUSION: 1. Stable bilateral adnexal complex cystic masses/collections. 2. Hepatosplenomegaly. 3. Tiny bilateral pleural effusions with adjacent bilbasilar atelectasis. 4. Tiny pericardial effusion. 5. Cardiomegaly. Mikael León MD on April 18, 2017 at 16:31 Board Certified Radiologist. This report was verified electronically.
[2017-04-18] MEDS: SODIUM CHLOR 0.9% 1000 ML INJ 1,000 ML IV PRN (19:27)
[2017-04-18] MEDS: EPOETIN ALFA 10,000 UNITS/ML VIAL IV PRN (19:27)
[2017-04-19] VITALS (15 sets, daily range): BP systolic 66–126; BP diastolic 60–85; PULSE 67–85; RESP 10–93; TEMP 97.1–98.5; O2SAT 78–100
[2017-04-19] MEDS: ONDANSETRON HCL 4 MG/2 ML VIAL IV PRN ×3 (01:48→16:52)
[2017-04-19] MEDS: HYDROmorphone HCL PF 1 MG/ML VIAL IV PUSH PRN ×5 (01:51→21:16)
[2017-04-19] MEDS: CHLORHEXIDINE GLUCONATE 2 % 1 PACK (2 CLOTHS) TOP SCH (01:55)
[2017-04-19] MEDS: DEXT 5%-NACL 0.9% 1000 ML INJ 1,000 ML IV SCH (03:25)
[2017-04-19] MEDS: INSULIN NovoLIN REGULAR SUPPLEMENTAL SCALE SQ SCH ×6 (04:00→20:00)
[2017-04-19] MEDS: metroNIDAZOLE 500 MG TAB PO SCH ×3 (04:12→21:17)
[2017-04-19] MEDS: ACETAMINOPHEN 1000 MG/100 ML VIAL IV SCH ×2 (04:12→13:46)
[2017-04-19] MEDS: PIPERACIL-TAZO 2.25 GM PREMIX 50 ML IV SCH ×3 (04:33→21:17)
[2017-04-19 04:56] LABS: INTERNATIONAL NORMALIZED RATIO 1.5 RATIO; PROTHROMBIN TIME - PATIENT 16.6 SEC (9.8-11.6)
[2017-04-19 05:00] LABS: HEMATOCRIT 25.3 % (35.0-46.0); MEAN CELL VOLUME 89.1 FL (80.0-100.0); MEAN CORPUSCULAR HGB CONC 32.5 % (32.0-36.0); PLATELET COUNT 45 TH/MM3 (150-450); RED BLOOD COUNT 2.84 MIL/MM3 (4.00-5.30); WHITE BLOOD COUNT 2.5 TH/MM3 (4.0-11.0)
[2017-04-19 05:08] LABS: REVIEW FLAG FINAL
[2017-04-19 05:52] LABS: BICARBONATE 22.6 MEQ/L (21.0-32.0); POTASSIUM 3.3 MEQ/L (3.5-5.1)
[2017-04-19] MEDS: HEPARIN SODIUM - SQ 10,000 UNITS/ML VIAL SQ SCH (07:15)
[2017-04-19] MEDS: ASPIRIN EC 81 MG TABEC PO SCH (07:15)
--- NOTE | 2017-04-19 07:41 | HHI.PR ---
Subjective Remarks Shilpa is sleeping and I do not want to wake her Objective - Vital Signs Date Time Temp Pulse Resp B/P Pulse Ox O2 Delivery O2 Flow Rate FiO2 04/19/17 06:00 74 04/19/17 04:00 73 04/19/17 04:00 98.3 73 20 108/66 97 04/19/17 02:00 80 04/19/17 00:00 98.5 81 20 66/ 97 04/19/17 00:00 81 04/18/17 22:00 80 04/18/17 20:00 98.6 86 22 116/75 100 04/18/17 20:00 86 04/18/17 19:33 18 04/18/17 19:33 18 04/18/17 18:00 77 04/18/17 16:00 77 04/18/17 16:00 98.9 77 14 112/63 100 04/18/17 14:00 76 04/18/17 12:00 91 04/18/17 12:00 99.6 91 17 123/74 100 04/18/17 10:00 87 04/18/17 08:00 98.5 78 31 125/66 98 04/18/17 08:00 78 I/O 04/18/17 04/18/17 04/18/17 04/19/17 04/19/17 04/19/17 06:59 14:59 22:59 06:59 14:59 22:59 Intake Total 1088 ml 1372 ml 1486 ml 894 ml Output Total 275 ml 1550 ml 50 ml Balance 1088 ml 1097 ml -64 ml 844 ml Intake Oral 120 ml 200 ml 0 ml IV Total 968 ml 1022 ml 1286 ml 894 ml FFP 350 ml Output Urine Total 275 ml 50 ml 25 ml Emesis 25 ml Hemodialysis 1500 ml # Voids 0 # Bowel Movements 2 1 1 Result Diagram: 04/19/1740604/19/17406 Other Results Creatinine down post dialysis platelets remain low -- after two units; Dr. Gamble ordering another two units now WBC is further down UO down from usual 1500 per day A/P Assessment and Plan improvement is not seen. Unlikely to improve until tuboovarian masses addressed. Discussed with Dr. Nichole (our transplant surgeon) and Dr. Tom ( interventional radiology) yesterday and discussed reduction of abcess volume with percutaneous drainage--not likely to reach all the loculations but could result in improvement with minimal procedural intervention. Would like to remove these surgically but clinically not stable and anticipate severe adhesions and anatomic distortion with her multiple transplants. If our local doctors feel percuntaneous drainage is not appropriate (if we can get platelets up and INR down) will then notify Dr. Dakota Harris (nephrology with [facility] [place] at [phone]--personal cell) of request for transfer. Ayala Espinoza MD Apr 19, 2017 07:41
[2017-04-19] MEDS: SODIUM CHLORIDE 0.9% FLUSH 10 ML FLUSH SCH ×2 (08:04→23:59)
[2017-04-19] MEDS: FAMOTIDINE 20 MG/2 ML VIAL IV PUSH SCH ×2 (08:26→21:17)
[2017-04-19] MEDS: VANCOMYCIN 500 MG VIAL (FOR ORAL USE ONLY) PO SCH ×4 (08:26→21:17)
[2017-04-19] MEDS: CHOLECALCIFEROL (VIT D3) 1000 UNIT TAB PO SCH (08:28)
[2017-04-19] MEDS: DRONEDARONE 400 MG TAB PO SCH ×2 (08:28→21:16)
[2017-04-19] MEDS: DOCUSATE SODIUM 50 MG/SENNA 8.6 MG TAB PO SCH ×2 (09:00→21:00)
[2017-04-19] MEDS ORDERED: LIDOCAINE 1%/EPINEPHrine 1:100,000 SOLN 20 ML VIAL ONE (10:37)
[2017-04-19] MEDS ORDERED: MIDAZOLAM HCL 2 MG/2 ML VIAL ONE ×2 (10:57→11:15)
[2017-04-19] MEDS ORDERED: fentaNYL CITRATE 250 MCG/5 ML AMP ONE (10:57)
--- NOTE | 2017-04-19 11:49 | PD.RAD ---
Post CT Procedure Prog Note Pre Procedure Diagnosis: (1) TOA (tubo-ovarian abscess) Post Procedure Diagnosis: (1) TOA (tubo-ovarian abscess) Procedure Date: Apr 19, 2017 Supervising Radiologist: Galdino Heredia Estimated blood loss: min Plan of Activity Patient to Unit: ROPU Patient Condition: Good See PACS Report for procedural detail/treatment Drainage Procedure Procedure 1 Imaging Guidance: CT Side: Left Procedure Type: Abscess Drainage (TOA) Procedure: Placement [place]: 8 Drainage: Suction (accordian) Fluid Description: Cloudy, Other (villatoro, malodorous) Galdino Heredia MD Apr 19, 2017 11:49
--- NOTE | 2017-04-19 13:20 | RADRPT ---
EXAM DATE/TIME: 04/19/2017 11:12 [facility] COMPARISON: No previous studies available for comparison. INDICATIONS : Pelvic abscess. SEDATION TIME: MEDICATION(S): 1.) 3.5 mg midazolam (Versed) IV 2.) 250 mcg fentanyl (Sublimaze) IV DEVICE(S): 1.) 8 Fr Muse FLUID: Total volume of 60 cc of cloudy, red fluid was removed. Fluid was sent for laboratory ordered studies. MEDICAL HISTORY : Cardiovascular disease. Renal failure, chronic. SURGICAL HISTORY : Mutliple renal transplants ENCOUNTER: Initial ACUITY: 1 day PAIN SCORE: 10/10 LOCATION: pelvis PROCEDURE: 1.) Conscious sedation with continuous EKG and oximetry monitoring. 2.) EKG and oximetry remained stable throughout the procedure. PROCEDURE : 1. CT guided drainage of the left tubo-ovarian abscess/hydrosalpinx. 2. Conscious sedation with continuous EKG and oximetry monitoring. The risks, benefits and alternatives to the procedure were explained and verbal and written consent w as obtained. Using automated exposure control and adjustment of the mA and/or kV according to patient size, radiation dose was kept as low as reasonably achievable to obtain optimal diagnostic quality i mages. The site was prepped in sterile fashion. Full sterile technique was used, including cap, ma sk, sterile gloves and gown and a large sterile sheet. Hand hygiene and 2% chlorhexidine and/or beta dine/alcohol prep was utilized per protocol for cutaneous antisepsis. The skin and subcutaneous tiss ues were infiltrated with local anesthetic solution. DICOM format image data is available electronic ally for review and comparison. Using CT guidance the prescribed site was localized. Drainage was performed using the prescribed cat heter The patient tolerated the procedure well and there were no complications. Conscious sedation was per formed with the prescribed dosages and duration as above in the presence of an independent trained ra diology nurse to assist in the monitoring of the patient. EKG and oximetry remained stable throughou t the procedure. The patient tolerated the procedure well and there were no complications. The patient was sent to pos t anesthesia recovery in stable condition. CONCLUSION: Uncomplicated CT guided drainage. Galdino Heredia MD on April 19, 2017 at 13:17 Board Certified Radiologist. This report was verified electronically.
[2017-04-19] MEDS: FLUCONAZOLE 200 MG PREMIX BAG 100 ML IV SCH (13:48)
--- NOTE | 2017-04-19 13:55 | HHI.IDPN ---
Subjective Subjective Remarks Patient is a 27-year-old female, who has a complicated medical history, recently underwent procedure for severe menstrual bleeding. She underwent D&C and ablation around March 24. 2 days prior to admission she started having significant abdominal pain, and some nausea. She also has had some fever and chills. She had episodes of diarrhea, but that has resolved. She also noted some mucousy bloody vaginal drainage. She presented to the hospital, and imaging studies showed significant inflammatory changes in the pelvis and possibly tubo-ovarian abscess. She has the transplanted kidney with hydronephrosis. Since admission she has been febrile up to 103. Her blood pressure is okay. She still has significant abdominal pain. The pain is in the lower quadrant and it radiates to her back. She denies any respiratory complaint. Patient has renal failure, and is anuric. 2 blood cultures done on admission are now reported as growing Enterobacter. Patient also has had problem with her left knee. She initially had fracture of her left patella, and has had arthroscopic surgery. There was a culture done in May that had Rosie albicans. Patient apparently had been given Diflucan previously. The last time she had any surgery on that left knee here in this area was in August, and this was done at [facility]. Culture it looks like from that surgery did not grow anything. Patient was subsequently referred to a doctor in [place], and she underwent more extensive surgery to her left knee. Culture reportedly grew yeast, and the patient was given Cresemba by the infectious disease physician who saw her at [facility]. She has a follow-up appointment with that infectious disease doctor around end of April. D/W RN Had placement of percutaneous drain this morning - initial fluid villatoro color, now fluid looks like old blood Temps better BP ok Always very lethargic due to her very frequent pain meds HD done yesterday No new (+) BC Platelets decreasing, getting platelets One BC with Enterobacter No new (+) BC Has diarrhea C diff (+) Antibiotics Zosyn Diflucan Flagyl/Vanco po Lines Port Past Medical History Hypothyroidism Hypertension GERD Endstage renal disease, on HD - diagnosis made when she was about 3 years old CVA in 2012 History of chronic steroid therapy. 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 Vital Signs Date Time Temp Pulse Resp B/P Pulse Ox O2 Delivery O2 Flow Rate FiO2 04/19/17 09:19 100 21 04/19/17 06:00 74 04/19/17 04:00 73 04/19/17 04:00 98.3 73 20 108/66 97 04/19/17 02:00 80 04/19/17 00:00 98.5 81 20 66/ 97 04/19/17 00:00 81 04/18/17 22:00 80 04/18/17 20:00 98.6 86 22 116/75 100 04/18/17 20:00 86 04/18/17 19:33 18 04/18/17 19:33 18 04/18/17 18:00 77 04/18/17 16:00 77 04/18/17 16:00 98.9 77 14 112/63 100 04/18/17 14:00 76 04/18/17 04/18/17 04/19/17 14:59 22:59 06:59 Intake Total 1372 ml 1486 ml 894 ml Output Total 275 ml 1550 ml 50 ml Balance 1097 ml -64 ml 844 ml Intake Oral 200 ml 0 ml IV Total 1022 ml 1286 ml 894 ml FFP 350 ml Output Urine Total 275 ml 50 ml 25 ml Emesis 25 ml Hemodialysis 1500 ml # Bowel Movements 1 1 . Laboratory Tests Test 04/18/17 04/19/17 05:20 04:07 White Blood Count 3.8 TH/MM3 2.5 TH/MM3 Red Blood Count 2.95 MIL/MM3 2.84 MIL/MM3 Hemoglobin 8.7 GM/DL 8.2 GM/DL Hematocrit 26.3 % 25.3 % Mean Corpuscular Volume 89.3 FL 89.1 FL Mean Corpuscular Hemoglobin 29.6 PG 29.0 PG Mean Corpuscular Hemoglobin 33.2 % 32.5 % Concent Red Cell Distribution Width 25.4 % 25.0 % Platelet Count 54 TH/MM3 45 TH/MM3 Mean Platelet Volume 8.4 FL 8.4 FL Laboratory Tests Test 04/18/17 04/19/17 05:20 04:07 Sodium Level 142 MEQ/L 140 MEQ/L Potassium Level 3.4 MEQ/L 3.3 MEQ/L Chloride Level 105 MEQ/L 104 MEQ/L Carbon Dioxide Level 17.0 MEQ/L 22.6 MEQ/L Anion Gap 20 MEQ/L 13 MEQ/L Blood Urea Nitrogen 33 MG/DL 19 MG/DL Creatinine 6.41 MG/DL 4.31 MG/DL Estimat Glomerular Filtration 8 ML/MIN 12 ML/MIN Rate Random Glucose 103 MG/DL 99 MG/DL Calcium Level 8.2 MG/DL 8.2 MG/DL Microbiology Date/Time Procedure Status Source Growth 04/19/17 11:35 Gram Stain Received Fluid Other Pending 04/19/17 11:35 Body Fluid Culture Received Fluid Other Pending Imaging Abscess Drainage CT 04/19/17 0957 Signed Impressions: Service Date/Time: Wednesday, April 19, 2017 11:12 - CONCLUSION: Uncomplicated CT guided drainage. Galdino Heredia MD Abdomen/Pelvis CT 04/18/17 0000 Signed Impressions: Service Date/Time: Tuesday, April 18, 2017 16:08 - CONCLUSION: 1. Stable bilateral adnexal complex cystic masses/collections. 2. Hepatosplenomegaly. 3. Tiny bilateral pleural effusions with adjacent bilbasilar atelectasis. 4. Tiny pericardial effusion. 5. Cardiomegaly. Mikael León MD Pelvis Ultrasound 04/17/17 0000 Signed Impressions: Service Date/Time: Monday, April 17, 2017 11:32 - CONCLUSION: There are complex adnexal masses bilaterally and a normal left ovary is not visualized, however the right ovary is visualized and the above-mentioned adnexal mass appears to be separate from it. Possibility of pyosalpinx should be entertained although the left ovary is not seen and therefore tubo-ovarian abscess in the left ovary is not excluded. Tin Spencer MD Chest X-Ray 04/16/17 0000 Signed Impressions: Service Date/Time: Sunday, April 16, 2017 03:44 - CONCLUSION: No acute disease Chris Myrick MD Pelvis MRI 04/15/17 0000 Signed Impressions: Service Date/Time: Saturday, April 15, 2017 18:39 - CONCLUSION: 1. The uterus is normal in appearance without obvious endometrial thickening or mass. 2. Normal appearing ovaries are not visualized. In the adnexal region bilaterally dilated tortuous tubular structures are seen with a cystic complex appearance concerning for bilateral hydrosalpinx and tubo-ovarian abscess formation given the extensive inflammatory changes should be considered. 3. Abnormal circumferential bowel wall thickening involving the rectum. 4. Right lower quadrant transplant kidney with hydronephrosis. Moe Aragon MD Physical Exam GENERAL: lethargic, not in distress SKIN: Warm and dry. No generalized rash, no ecchymoses and no evidence of embolic lesions. HEAD: Atraumatic. Normocephalic. No temporal wasting, or tenderness. EYES: Smoaks conjunctiva. No petechia or hemorrhage. Pupils equal, round and reactive to light. No scleral icterus. No injection or drainage. EARS, NOSE AND THROAT: Nose without bleeding or purulent nasal discharge. No sinus tenderness. Mucous membranes pink and moist. No oral lesions noted. NECK: Trachea midline. Supple and not tender, no meningeal signs CARDIOVASCULAR: Regular rate and rhythm. No murmurs, rubs or gallops heard RESPIRATORY: Clear to auscultation. Breath sounds equal bilaterally. No rales , wheezing or rhonchi. Decreased at bases. Port in R upper chest, no evidence of infection ABDOMEN: Distended, hypoactive bowel sounds has scars compatible with multiple abdominal surgeries, has diffuse abdominal tenderness. Drain in place EXTREMITIES: No clubbing, cyanosis. No pedal edema. LLE larger compared to the RLE. Her L knee has effusion, healed incisions with some scabs present, NEUROLOGICAL: Awake and alert. Cranial nerves grossly intact. Motor grossly within normal limits. PSYCHIATRIC: Normal affect, calm and cooperative. LINE: Port with no evidence of infection Assessment & Plan Remarks IMPRESSION Enterobacter sepsis, ?source - has possible TOA on imaging studies; has drain in place now, 04/19 - recent D and C, and ablation for heavy bleeding; not sexually active - has some rectal wall thickening - has port ESRD, previous transplant x 5, last one done 2014 - on HD had AVG in her L upper arm Infection L knee, with yeast , OR end of January, has been on Cresemba, clinically improving C diff colitis RECOMMENDATION Continue Zosyn Continue Diflucan for her knee infection Continue Flagyl, give po Also now on po VAnco Give dose of vanco Follow new fluid C/S Monitor progress D/W Aury Siddiqi MD Apr 19, 2017 13:55
[2017-04-19] MEDS ORDERED: VANCOMYCIN INJ 1,000 MG in SODIUM CHLOR 0.9% 250 ML INJ 250 ML IV ONE (14:00)
[2017-04-19] MEDS: PROCHLORPERAZINE INJ 10 MG/2 ML VIAL IV PUSH PRN (14:34)
--- NOTE | 2017-04-19 16:59 | HHI.NPPN ---
Subjective General Problems: Anemia, Hypertension Renal Failure: End Stage Renal Disease History of Present Illness 27-year-old female with past medical history of hypertension, hypothyroidism, gastroesophageal reflux disease, history of chronic anemia, end-stage renal disease on hemodialysis two times per week, history of multiple renal transplants in the past who was admitted because of heavy vaginal bleeding after she had an IUD placed. I was called to see the patient for the management of dialysis. Additional Remarks Patient is alert, has lower abd. pain, seen after placement of drain. Review of Systems General Constitutional: Fatigue Cardiovascular Cardiac: MUIR Gastrointestinal Gastrointestinal: Abdominal Pain, Nausea & Vomiting Objective Data Data 04/18/17 04/19/17 19:00 07:00 Intake Total 1372 ml 2380 ml Output Total 275 ml 1600 ml Balance 1097 ml 780 ml Intake Oral 200 ml IV Total 1022 ml 2180 ml FFP 350 ml Output Urine Total 275 ml 75 ml Emesis 25 ml Hemodialysis 1500 ml # Bowel Movements 1 1 Vital Signs Date Time Temp Pulse Resp B/P Pulse Ox O2 Delivery O2 Flow Rate FiO2 04/19/17 09:19 100 21 04/19/17 06:00 74 04/19/17 04:00 73 04/19/17 04:00 98.3 73 20 108/66 97 04/19/17 02:00 80 04/19/17 00:00 98.5 81 20 66/ 97 04/19/17 00:00 81 04/18/17 22:00 80 04/18/17 20:00 98.6 86 22 116/75 100 04/18/17 20:00 86 04/18/17 19:33 18 04/18/17 19:33 18 04/18/17 18:00 77 -: 04/19/17 0407 04/19/17 0407 Microbiology 04/19/17 Gram Stain - Final, Resulted 04/19/17 Body Fluid Culture, Resulted Pending Physical Exam General Appearance: No Acute Distress, Comfortable Eyes Eye Exam: Pupils Equal Throat Throat Exam: Oral Mucosa [place] & Moist Pulmonary Resp Exam: Breath Sounds Equal, No Distress, Decreased Bases Cardiology CV Exam: Regular, Normal Sinus Rhythm Gastrointestinal/Abdomen GI Exam: Soft, Bowel Sounds Present (mild lower abd. tenderness.), Non- Distended Extremeties Extremities Exam: Trace Edema Neurologic Neuro Exam: Alert, Awake, Oriented Psychiatric Psych Exam: Appropriate Responses Assessment/Plan Assessment Summary: Anemia of CKD, Hypertension, End Stage Renal Disease, Transplant Kidney Status Problem List: (1) Hypertension (2) Hypothyroidism (3) History of CVA (cerebrovascular accident) (4) Renal transplant failure and rejection (5) End stage chronic kidney disease (6) Anemia (7) Sepsis Plan Post transfusion Hgb. is stable. On Zosyn, Doxycycline and Fluconazole. ID is following. CT abd. noted. Now has drain inserted. Platelets remain low, will chest HIT antibodies. HD was done yesterday and 1.5 liters removed. Follow BMP, HD will be 2 times a week and as needed. Veronica Pichardo MD Apr 19, 2017 16:59
--- NOTE | 2017-04-19 17:43 | HHI.CCPN ---
Subjective Remarks/Hospital Course Hospital Course: 27-year-old female who has a chronic renal condition that caused early renal failure in her teens now status post 5 transplants, has had issues of chronic immunosuppresion, including rapid development of pneumonia and ARDS from a cold ; joint sepsis and recent left knee debridement, CVA and need for chronic anticoagulation and dialysis twice weekly in [place], presents today complaining of abdominal pain, fevers, and diarrhea. . Earlier this month, she called GERIATRIC CARE MANAGER with extremely heavily bleeding despite placement of mirena IUD. This was so profound she bled to a hgb< 5 and required ablation and transfusion. She did well the first two weeks and then developed the above symptoms two days ago. She was started on by mouth antibiotics by her GERIATRIC CARE MANAGER physician but her symptoms progressed and she presents to ED today after dialysis. MRI obtained today show unremarkable uterus BUT suggests bilateral TOAs which is unexpected. She is followed by GERIATRIC CARE MANAGER with desire to avoid surgical intervention given co morbidities. Subjective: 04/16: complaints of abdominal pain not well-controlled with current percocet. hypoglycemic overnight requiring d50w x 1. hemodynamics stabilized. 04/17: abdominal pain is stable. off vasopressors. thrombocytopenic and anemic this morning requiring 2 units prbc and platelets. no evidence of DIC based on high fibrinogen. otherwise clinically stable. again discussed care with cad drafter, will plan for conservative management with iv abx and repeat imaging before pursuing surgical options, unless she clinically declines. 04/18: Overnight results patient's C. difficile positive. By mouth Flagyl discontinued. IV Flagyl initiated with by mouth vancomycin. ID following. Patient noted to be thrombocytopenic concern for possible surgical intervention secondary to bilateral adnexal masses. We'll transfuse 2 units of platelets this a.m., and insertion of Calvo catheter per LOCKSTITCH WAISTLINE JOINER recommendations. Ofirmev added for 24 hours for pain control. 04/19: Improvement in pain control overnight. Patient remains thrombocytopenic 2 units of platelets provided. Hit panel ordered Patient to IR this afternoon for percutaneous drainage of tubo-ovarian abscesses. Transfer orders placed for [facility] transplant [place] for management by Dr. Dakota Harris, Objective Vital Signs Date Time Temp Pulse Resp B/P Pulse Ox O2 Delivery O2 Flow Rate FiO2 04/19/17 09:19 100 21 04/19/17 06:00 74 04/19/17 04:00 98.3 20 108/66 04/18/17 07:27 Nasal Cannula 2.00 Intake and Output 04/18/17 04/18/17 04/19/17 08:00 16:00 00:00 Intake Total 1088 ml 1372 ml 1486 ml Output Total 275 ml 1550 ml Balance 1088 ml 1097 ml -64 ml Result Diagram: 04/19/1740604/19/17406 Objective Remarks GENERAL: young chronically ill-appearing female, lying in bed, in mild distress SKIN: Warm and dry. HEAD: Normocephalic. EYES: No scleral icterus. No injection or drainage. NECK: trachea midline. No JVD. CARDIOVASCULAR: Regular rate and rhythm. . RESPIRATORY: equal chest rise. on room air. GASTROINTESTINAL: Abdomen soft, moderately tender to palpation over pelvis. only mildly diffusely tender in the upper quadrants. no guarding or rebound. nondistended. MUSCULOSKELETAL: No cyanosis, peripheral edema noted 1+, however left arm 2+ peripheral edema. EXTREMITIES: No clubbing cyanosis or edema Neuro: awake, alert, oriented. RASS 0. no focal deficits. Procedures 04/19 percutaneous tubo-ovarian abscesses via IR Urinary Catheter: Yes Calvo insert reason: Measure Accurate Output A/P Assessment and Plan Assessment: 27yF with ESRD, severe tuboovarian abscess, severe sepsis, possible fungal post-op knee infection. Clinically not worsening, though not completely improving either. Blood cultures growing enterobacter. Have discussed options at length with Dr. Oro and Dr. Espinoza and will plan to treat conservatively with iv abx and nonsurgically unless she clinically declines. Appreciate ID involvement. Abdominal pain- severe - secondary to tubo-ovarian abscesses - oxycodone 10mg po q4h prn - dilaudid 0.5mg iv q3h prn - Ofirmev 1 g every 6 hours Severe Sepsis Tubo-ovarian Abscess Enterobacter bacteremia C. difficile - f/u blood cultures- growing enterobacter - continue Zosyn, Flagyl, vancomycin - Infectious disease following Dr. Cannon - GERIATRIC CARE MANAGER following Dr. Dee Rosie wound infection -- unclear if colonization or infection, but immunocompromised and clinically toxic appearing -- fluconazole, renally adjusted iv. -- ID consult. Hypoglycemia- resolved. -- prn d50w. -- glucose checks q4h -- D5NS @ 84cc/hr. End-stage renal disease - Hemodialysis per nephrology - consult nephrology- Dr. Pichardo following Anemia secondary to critical illness and ESRD- worsening today -- received 1 unit prbc 04/16 -- 2 units prbc 04/17 -- recheck post-transfusion H&H. -- goal hgb > 7 Thrombocytopenia -- likely secondary to sepsis. low probability HIT 1u PLT 04/17 -- 2 units platelets transfused today given her anemia and critical illness. --04/19 2 units Platelets -- goal plt > 50k. Hypothyroidism - Levothyroxine Hypertension - Clonidine when necessary GERD - Pantoprazole DVT GI prophylaxis - Teds SCDs subcutaneous heparin - Pantoprazole Dispo: Discussed with Dr. Wheeler. Possible plan for surgical intervention patient will receive 2 units of platelets given her severe thrombocytopenia, local transplant surgeon also consulted per [place], with plan transfer initiated to [facility] transplant [facility]. This patient remains critically ill with one or more organ systems which are or may become a threat to life. I have spent in excess of 35 minutes discontinuously in the care and management of this patient. This time is exclusive of procedures, and includes, but is not limited to, evaluation of the patient, review of the medical record, discussions with family, consultants, nursing staff, or respiratory therapy, and documentation in the medical record. Physician Aimee Jennings MD Apr 19, 2017 17:43
[2017-04-19 17:59] LABS: HEMATOCRIT 22.7 % (35.0-46.0); MEAN CELL VOLUME 88.9 FL (80.0-100.0); MEAN CORPUSCULAR HEMOGLOBIN 29.2 PG (27.0-34.0); MEAN CORPUSCULAR HGB CONC 32.8 % (32.0-36.0); PLATELET COUNT 43 TH/MM3 (150-450); RED BLOOD COUNT 2.56 MIL/MM3 (4.00-5.30); RED CELL DISTRIBUTION WIDTH 25.4 % (11.6-17.2); WHITE BLOOD COUNT 1.4 TH/MM3 (4.0-11.0)
[2017-04-19 18:04] LABS: INTERNATIONAL NORMALIZED RATIO 1.5 RATIO; PROTHROMBIN TIME - PATIENT 16.8 SEC (9.8-11.6)
[2017-04-19 18:22] LABS: HEMO FLAGS AUTO DIFF
--- NOTE | 2017-04-19 18:40 | HHI.PR ---
Subjective Remarks s/p percutaneous drainage of bilateral tubo ovarian abcesses Shilpa feels better but extremely tired. Objective - Vital Signs Date Time Temp Pulse Resp B/P Pulse Ox O2 Delivery O2 Flow Rate FiO2 04/19/17 09:19 100 21 04/19/17 06:00 74 04/19/17 04:00 73 04/19/17 04:00 98.3 73 20 108/66 97 04/19/17 02:00 80 04/19/17 00:00 98.5 81 20 66/ 97 04/19/17 00:00 81 04/18/17 22:00 80 04/18/17 20:00 98.6 86 22 116/75 100 04/18/17 20:00 86 04/18/17 19:33 18 04/18/17 19:33 18 I/O 04/18/17 04/18/17 04/18/17 04/19/17 04/19/17 04/19/17 07:00 15:00 23:00 07:00 15:00 23:00 Intake Total 1088 ml 1372 ml 1486 ml 894 ml Output Total 275 ml 1550 ml 50 ml Balance 1088 ml 1097 ml -64 ml 844 ml Intake Oral 120 ml 200 ml 0 ml IV Total 968 ml 1022 ml 1286 ml 894 ml FFP 350 ml Output Urine Total 275 ml 50 ml 25 ml Emesis 25 ml Hemodialysis 1500 ml # Voids 0 # Bowel Movements 2 1 1 Result Diagram: 04/19/17 1720 04/19/17 0407 Other Results abdomen softer, less tender to palpation drain in place drainage material described as purulent with odor by Dr. Javier This is consistent with enterobacter clinically urine output diminished and concentrated left arm and hand swollen A/P Assessment and Plan unremarkable percutaneous drainage revealed significant volume of purulent drainage. Procedure described as unremarkable indices at 5 pm show WBC only 1.5 and platelets back down to 40s (has had 2 units yesterday and today) needs continued replacement of blood products and dialysis and antibiotics repeat sonogram in room in am Have spoken with cafe team member onc at [facility], along with oven stripper and starcher and tenter range feeder. Would accept patient if does not improve post percutaneous drainage (could not accept this am until cafe team member onc on board and she received platelets and interventional radiology addressed abcesses in interim.) re evaluate in am. Ayala Espinoza MD Apr 19, 2017 18:40
[2017-04-19 19:03] LABS: BANDS 8 % (0-6); EOSINOPHILS 1 % (0-4); METAMYELOCYTES 1 % (0-1); NEUTROPHIL # MANUAL DIFF 1.1 TH/MM3 (1.8-7.7); POLYS (SEG NEUTROPHILS) 67 % (16-70); WBC DIFF SAMPLE 100
[2017-04-19 19:04] LABS: BURR CELLS 1+ (NORMAL); KERATOCYTES OCC (NORMAL); OVALOCYTES 1+ (NORMAL); PLATELET ESTIMATE SMEAR LOW (NORMAL); PLATELET MORPHOLOGY NORMAL (NORMAL)
[2017-04-19 19:05] LABS: SCAN/DIFF FINAL DIFF MANUAL
--- NOTE | 2017-04-19 21:17 | RADRPT ---
EXAM DATE/TIME: 04/19/2017 20:24 [facility] COMPARISON: No previous studies available for comparison. INDICATIONS : Bilateral arm edema. MEDICAL HISTORY : Hypertension. Thyroid disease. Renal failure. Dialysis. Anemia. SURGICAL HISTORY : Kidney transplant x 5. Left knee surgery. Parathyroid removal. ENCOUNTER: Initial ACUITY: 1 week PAIN SCORE: 9/10 LOCATION: Bilateral arms. FINDINGS: Limited study due to overlying bandage. RIGHT UPPER EXTREMITY: There is spontaneous flow documented in the brachial, basilic, axillary, and subclavian veins. The v essels are compressible and augmentation response is documented. No filling defects are seen. The f low is phasic with respiration. Direction of flow in the jugular vein is caudal. Right cephalic vei n not seen. LEFT UPPER EXTREMITY: There is spontaneous flow documented in the brachial, basilic, cephalic, axillary, and subclavian vei ns. The vessels are compressible and augmentation response is documented. No filling defects are se en. The flow is phasic with respiration. Direction of flow in the jugular vein is caudal. CONCLUSION: No DVT in either upper extremity. Yusuf Jacob MD on April 19, 2017 at 21:14 Board Certified Radiologist. This report was verified electronically.
[2017-04-19] MEDS ORDERED: ACETAMINOPHEN 1000 MG/100 ML VIAL IV ONE (23:45)
[2017-04-20] VITALS (18 sets, daily range): BP systolic 100–172; BP diastolic 64–101; PULSE 67–95; RESP 17–30; TEMP 97.6–98.3; O2SAT 92–100
[2017-04-20] MEDS: HYDROmorphone HCL PF 1 MG/ML VIAL IV PUSH PRN ×5 (03:37→22:10)
[2017-04-20 05:29] LABS: HEMATOCRIT 25.8 % (35.0-46.0); MEAN CELL VOLUME 87.6 FL (80.0-100.0); MEAN CORPUSCULAR HEMOGLOBIN 29.5 PG (27.0-34.0); MEAN CORPUSCULAR HGB CONC 33.7 % (32.0-36.0); PLATELET COUNT 44 TH/MM3 (150-450); RED BLOOD COUNT 2.94 MIL/MM3 (4.00-5.30); WHITE BLOOD COUNT 1.5 TH/MM3 (4.0-11.0)
[2017-04-20 05:30] LABS: INTERNATIONAL NORMALIZED RATIO 1.5 RATIO; PROTHROMBIN TIME - PATIENT 17.4 SEC (9.8-11.6)
[2017-04-20 05:32] LABS: REVIEW FLAG FINAL
[2017-04-20 05:50] LABS: BICARBONATE 20.1 MEQ/L (21.0-32.0); POTASSIUM 3.3 MEQ/L (3.5-5.1)
[2017-04-20] MEDS: metroNIDAZOLE 500 MG TAB PO SCH (06:39)
[2017-04-20] MEDS: INSULIN NovoLIN REGULAR SUPPLEMENTAL SCALE SQ SCH ×5 (08:00→20:00)
--- NOTE | 2017-04-20 08:18 | HHI.CCPN ---
Subjective Remarks/Hospital Course Hospital Course: 27-year-old female who has a chronic renal condition that caused early renal failure in her teens now status post 5 transplants, has had issues of chronic immunosuppresion, including rapid development of pneumonia and ARDS from a cold ; joint sepsis and recent left knee debridement, CVA and need for chronic anticoagulation and dialysis twice weekly in [place], presents today complaining of abdominal pain, fevers, and diarrhea. . Earlier this month, she called LEGAL RECRUITER with extremely heavily bleeding despite placement of mirena IUD. This was so profound she bled to a hgb< 5 and required ablation and transfusion. She did well the first two weeks and then developed the above symptoms two days ago. She was started on by mouth antibiotics by her LEGAL [employer]CRU[employer] physician but her symptoms progressed and she presents to ED today after dialysis. MRI obtained today show unremarkable uterus BUT suggests bilateral TOAs which is unexpected. She is followed by LEGAL RECRUITER with desire to avoid surgical intervention given co morbidities. Subjective: 04/16: complaints of abdominal pain not well-controlled with current percocet. hypoglycemic overnight requiring d50w x 1. hemodynamics stabilized. 04/17: abdominal pain is stable. off vasopressors. thrombocytopenic and anemic this morning requiring 2 units prbc and platelets. no evidence of DIC based on high fibrinogen. otherwise clinically stable. again discussed care with clinical psychology teacher, will plan for conservative management with iv abx and repeat imaging before pursuing surgical options, unless she clinically declines. 04/18: Overnight results patient's C. difficile positive. By mouth Flagyl discontinued. IV Flagyl initiated with by mouth vancomycin. ID following. Patient noted to be thrombocytopenic concern for possible surgical intervention secondary to bilateral adnexal masses. We'll transfuse 2 units of platelets this a.m., and insertion of Calvo catheter per ACCOUNT RELATIONSHIP MANAGER recommendations. Ofirmev added for 24 hours for pain control. 04/19: Improvement in pain control overnight. Patient remains thrombocytopenic 2 units of platelets provided. Hit panel ordered Patient to IR this afternoon for percutaneous drainage of tubo-ovarian abscesses. Transfer orders placed for [facility] transplant [place] for management by Dr. Dakota Harris, 04/20: The patient underwent CT-guided percutaneous drainage of left tubo- ovarian abscess yesterday with drainage of approximately 60 cc , overnight perc drain in situ an additional 50 cc. Patient complains of mild pain in the pelvic region, Ofirmev every 6 hours added to medication regimen in conjunction with Dilaudid. Patient scheduled for pelvic ultrasound this a.m.. Patient delay in transfer to transplant facility secondary to hematological concerns by facility. Optimization in process,the patient received 2 units of packed red blood cells, and 2 units of platelets overnight, subsequent platelet count continues to be 44. Additionally given this a.m. 2 units of Rh+ platelets to be transfused, patient received Rhogam and and is covered approximately several days ago. This was discussed with Dr. Hylton, pathology secondary to the unavailability of Rh- products. D dimer and fibrinogen labs ordered, hematology oncology consulted appreciate recommendations. Objective Vital Signs Date Time Temp Pulse Resp B/P Pulse Ox O2 Delivery O2 Flow Rate FiO2 04/20/17 04:00 79 04/20/17 04:00 97.9 17 100/64 95 04/19/17 09:19 21 04/18/17 07:27 Nasal Cannula 2.00 Intake and Output 04/19/17 04/19/17 04/20/17 08:00 16:00 00:00 Intake Total 894 ml 576 ml 1332 ml Output Total 50 ml 325 ml 130 ml Balance 844 ml 251 ml 1202 ml Result Diagram: 04/20/17 0505 04/20/17 0505 Objective Remarks GENERAL: young chronically ill-appearing female, lying in bed, sleeping, easily arousable SKIN: Warm and dry. HEAD: Normocephalic. EYES: No scleral icterus. No injection or drainage. NECK: trachea midline. No JVD. CARDIOVASCULAR: Regular rate and rhythm. . RESPIRATORY: equal chest rise. on room air. GASTROINTESTINAL: Abdomen soft, moderately tender to palpation over pelvis. only mildly diffusely tender in the upper quadrants. no guarding or rebound. nondistended. Left percutaneous pelvic drain noted, no erythema, dressing C/D/I MUSCULOSKELETAL: No cyanosis, peripheral edema noted 1+, left arm 2+ peripheral edema. EXTREMITIES: No clubbing cyanosis or edema Neuro: awake, alert, oriented. RASS 0. no focal deficits. Procedures 04/19 percutaneous tubo-ovarian abscesses via IR 04/20 pelvic ultrasound A/P Assessment and Plan Assessment: 27yF with ESRD, severe tuboovarian abscess, severe sepsis, possible fungal post-op knee infection. Clinically not worsening, though not completely improving either. Blood cultures growing enterobacter. Have discussed options at length with Dr. Oro and Dr. Espinoza and will plan to treat conservatively with iv abx and nonsurgically unless she clinically declines. Appreciate ID involvement. Abdominal pain- severe - secondary to tubo-ovarian abscesses - oxycodone 10mg po q4h prn - dilaudid 0.5mg iv q3h prn - Ofirmev 1 g every 6 hours x 24 hours Severe Sepsis Tubo-ovarian Abscess Enterobacter bacteremia C. difficile - f/u blood cultures- growing enterobacter - continue Zosyn, Flagyl, vancomycin - Infectious disease following Dr. Cannon - LEGAL RECRUITER following Dr. Dee-pelvic ultrasound scheduled - 04/19 S/P percutaneous drainage left tubo-ovarian abscess- cultures pending Rosie wound infection -- unclear if colonization or infection, but immunocompromised and clinically toxic appearing -- fluconazole, renally adjusted iv. -- ID consult. Hypoglycemia- resolved. -- prn d50w. -- glucose checks q4h -- D5NS @ 84cc/hr. End-stage renal disease - Hemodialysis per nephrology - consult nephrology- Dr. Pichardo following Anemia secondary to critical illness and ESRD- worsening today -- received 1 unit prbc 04/16 -- 2 units prbc 04/17, 2 units 04/19 -- recheck post-transfusion H&H. -- goal hgb > 7 Thrombocytopenia -- likely secondary to sepsis. low probability HIT 1u PLT 04/17 -- 2 units platelets transfused today given her anemia and critical illness. --04/19 4 units Platelets (Rh -), 04/20 2 units (Rh +) RhoGAM previously given. Discussion with Dr. Hylton pathology patient does not plan on in the near future. Patient remains thrombocytopenic. -- goal plt > 50k. --Obtain d-dimer, and fibrinogen level --Hematology/oncology consulted, follow-up recommendations Hypothyroidism - Levothyroxine Hypertension - Clonidine when necessary MSK: - Left arm peripheral edema 2+ - 04/19 venous Doppler ultrasound bilateral upper extremities, negative for DVT -Maintain elevation of left arm -Healing surgical wound left knee-line Neosporin ointment when necessary - GERD Nausea - Pantoprazole -Zofran DVT GI prophylaxis - Teds SCDs subcutaneous heparin - Pantoprazole Dispo: Discussed with Dr. Wheleer. local transplant surgeon also consulted per Summer, with plan transfer to [facility] transplant [place], upon demonstration of hematological status. Level 3 Physician Aimee Jennings MD Apr 20, 2017 08:18
[2017-04-20] MEDS ORDERED: DEXTROSE 50% IN WATER 50 ML SYRINGE ONE ×3 (08:27→21:16)
[2017-04-20] MEDS: DRONEDARONE 400 MG TAB PO SCH ×2 (08:32→22:05)
[2017-04-20] MEDS: ASPIRIN EC 81 MG TABEC PO SCH (08:32)
[2017-04-20] MEDS: CHOLECALCIFEROL (VIT D3) 1000 UNIT TAB PO SCH (08:32)
[2017-04-20] MEDS: ACETAMINOPHEN 1000 MG/100 ML VIAL IV SCH ×3 (08:32→22:05)
[2017-04-20] MEDS: VANCOMYCIN 500 MG VIAL (FOR ORAL USE ONLY) PO SCH ×4 (08:33→22:09)
[2017-04-20] MEDS: FAMOTIDINE 20 MG/2 ML VIAL IV PUSH SCH ×2 (08:33→22:07)
[2017-04-20] MEDS: SODIUM CHLORIDE 0.9% FLUSH 10 ML FLUSH SCH ×2 (08:33→22:07)
[2017-04-20] MEDS: DEXTROSE 50% IN WATER 50 ML VIAL(D50) IV PUSH PRN ×3 (08:34→10:00)
[2017-04-20] MEDS: DOCUSATE SODIUM 50 MG/SENNA 8.6 MG TAB PO SCH ×2 (08:35→21:00)
[2017-04-20 09:47] LABS: REVIEW FLAG FINAL
[2017-04-20] MEDS: DEXT 5%-NACL 0.9% 1000 ML INJ 1,000 ML IV SCH ×3 (11:18→21:15)
--- NOTE | 2017-04-20 12:18 | HHI.IDPN ---
Subjective Subjective Remarks Patient is a 27-year-old female, who has a complicated medical history, recently underwent procedure for severe menstrual bleeding. She underwent D&C and ablation around March 24. 2 days prior to admission she started having significant abdominal pain, and some nausea. She also has had some fever and chills. She had episodes of diarrhea, but that has resolved. She also noted some mucousy bloody vaginal drainage. She presented to the hospital, and imaging studies showed significant inflammatory changes in the pelvis and possibly tubo-ovarian abscess. She has the transplanted kidney with hydronephrosis. Since admission she has been febrile up to 103. Her blood pressure is okay. She still has significant abdominal pain. The pain is in the lower quadrant and it radiates to her back. She denies any respiratory complaint. Patient has renal failure, and is anuric. 2 blood cultures done on admission are now reported as growing Enterobacter. Patient also has had problem with her left knee. She initially had fracture of her left patella, and has had arthroscopic surgery. There was a culture done in May that had Rosie albicans. Patient apparently had been given Diflucan previously. The last time she had any surgery on that left knee here in this area was in August, and this was done at [facility]. Culture it looks like from that surgery did not grow anything. Patient was subsequently referred to a doctor in [place], and she underwent more extensive surgery to her left knee. Culture reportedly grew yeast, and the patient was given Cresemba by the infectious disease physician who saw her at [facility]. She has a follow-up appointment with that infectious disease doctor around end of April. Notes reviewed D/W RN Up in chair. Pain slightly better C/O diarrhea Had placement of percutaneous drain yesterday - fluid looks like old blood, not much in bag Temps ok BP ok No new (+) BC Platelets decreasing, getting platelets WBC still very low - 1.5 One BC with Enterobacter Fluid C/S pending Has diarrhea C diff (+) Antibiotics Zosyn Diflucan Flagyl/Vanco po Lines Port Past Medical History Hypothyroidism Hypertension GERD Endstage renal disease, on HD - diagnosis made when she was about 3 years old CVA in 2012 History of chronic steroid therapy. 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 Vital Signs Date Time Temp Pulse Resp B/P Pulse Ox O2 Delivery O2 Flow Rate FiO2 04/20/17 08:30 98.1 74 24 138/91 98 04/20/17 08:09 98.1 74 18 132/86 98 04/20/17 08:02 96 04/20/17 06:00 83 04/20/17 04:00 79 04/20/17 04:00 97.9 73 17 100/64 95 04/20/17 02:00 97.8 84 17 127/83 96 04/20/17 02:00 84 04/20/17 00:00 95 04/19/17 22:00 85 04/19/17 20:00 67 04/19/17 20:00 98.0 85 19 116/67 100 04/19/17 18:00 69 04/19/17 16:00 74 04/19/17 16:00 97.7 74 14 126/85 100 04/19/17 14:00 75 04/19/17 04/19/17 04/20/17 15:00 23:00 07:00 Intake Total 576 ml 1332 ml 1041 ml Output Total 325 ml 130 ml 170 ml Balance 251 ml 1202 ml 871 ml IV Total 279 ml 762 ml 791 ml Packed Cells 250 ml Platelets 297 ml 570 ml Output Urine Total 175 ml 100 ml 150 ml Drainage Total 150 ml 30 ml 20 ml # Bowel Movements 3 . Laboratory Tests Test 04/19/17 04/19/17 04/20/17 04/20/17 04:07 17:20 05:05 09:20 White Blood Count 2.5 TH/MM3 1.4 TH/MM3 1.5 TH/MM3 Red Blood Count 2.84 MIL/MM3 2.56 MIL/MM3 2.94 MIL/MM3 Hemoglobin 8.2 GM/DL 7.5 GM/DL 8.7 GM/DL 9.3 GM/DL Hematocrit 25.3 % 22.7 % 25.8 % 29.0 % Mean Corpuscular Volume 89.1 FL 88.9 FL 87.6 FL Mean Corpuscular Hemoglobin 29.0 PG 29.2 PG 29.5 PG Mean Corpuscular Hemoglobin 32.5 % 32.8 % 33.7 % Concent Red Cell Distribution Width 25.0 % 25.4 % 23.0 % Platelet Count 45 TH/MM3 43 TH/MM3 44 TH/MM3 Mean Platelet Volume 8.4 FL 8.3 FL 9.3 FL Neutrophils (%) (Auto) % Lymphocytes (%) (Auto) % Monocytes (%) (Auto) % Eosinophils (%) (Auto) % Basophils (%) (Auto) % Neutrophils # (Auto) TH/MM3 Lymphocytes # (Auto) TH/MM3 Monocytes # (Auto) TH/MM3 Eosinophils # (Auto) TH/MM3 Basophils # (Auto) TH/MM3 CBC Comment AUTO DIFF Differential Total Cells 100 Counted Neutrophils % (Manual) 67 % Band Neutrophils % 8 % Lymphocytes % 5 % Monocytes % 18 % Eosinophils % 1 % Neutrophils # (Manual) 1.1 TH/MM3 Metamyelocytes 1 % Differential Comment FINAL DIFF MANUAL Platelet Estimate LOW Platelet Morphology Comment NORMAL Ovalocytes 1+ [place] Cells 1+ Keratocytes OCC Laboratory Tests Test 04/19/17 04/20/17 04:07 05:05 Sodium Level 140 MEQ/L 140 MEQ/L Potassium Level 3.3 MEQ/L 3.3 MEQ/L Chloride Level 104 MEQ/L 106 MEQ/L Carbon Dioxide Level 22.6 MEQ/L 20.1 MEQ/L Anion Gap 13 MEQ/L 14 MEQ/L Blood Urea Nitrogen 19 MG/DL 21 MG/DL Creatinine 4.31 MG/DL 4.73 MG/DL Estimat Glomerular Filtration 12 ML/MIN 11 ML/MIN Rate Random Glucose 99 MG/DL 71 MG/DL Calcium Level 8.2 MG/DL 8.5 MG/DL Microbiology Date/Time Procedure Status Source Growth 04/19/17 11:35 Gram Stain - Final Resulted Fluid Other 04/19/17 11:35 Body Fluid Culture Resulted Fluid Other Pending Imaging Abscess Drainage CT 04/19/17 0957 Signed Impressions: Service Date/Time: Wednesday, April 19, 2017 11:12 - CONCLUSION: Uncomplicated CT guided drainage. Galdino Heredia MD Abdomen/Pelvis CT 04/18/17 0000 Signed Impressions: Service Date/Time: Tuesday, April 18, 2017 16:08 - CONCLUSION: 1. Stable bilateral adnexal complex cystic masses/collections. 2. Hepatosplenomegaly. 3. Tiny bilateral pleural effusions with adjacent bilbasilar atelectasis. 4. Tiny pericardial effusion. 5. Cardiomegaly. Mikael León MD Pelvis Ultrasound 04/17/17 0000 Signed Impressions: Service Date/Time: Monday, April 17, 2017 11:32 - CONCLUSION: There are complex adnexal masses bilaterally and a normal left ovary is not visualized, however the right ovary is visualized and the above-mentioned adnexal mass appears to be separate from it. Possibility of pyosalpinx should be entertained although the left ovary is not seen and therefore tubo-ovarian abscess in the left ovary is not excluded. Tin Spencer MD Chest X-Ray 04/16/17 0000 Signed Impressions: Service Date/Time: Sunday, April 16, 2017 03:44 - CONCLUSION: No acute disease Chris Myrick MD Pelvis MRI 04/15/17 0000 Signed Impressions: Service Date/Time: Saturday, April 15, 2017 18:39 - CONCLUSION: 1. The uterus is normal in appearance without obvious endometrial thickening or mass. 2. Normal appearing ovaries are not visualized. In the adnexal region bilaterally dilated tortuous tubular structures are seen with a cystic complex appearance concerning for bilateral hydrosalpinx and tubo-ovarian abscess formation given the extensive inflammatory changes should be considered. 3. Abnormal circumferential bowel wall thickening involving the rectum. 4. Right lower quadrant transplant kidney with hydronephrosis. Moe Aragon MD Physical Exam GENERAL: awake and alert, not in distress SKIN: Warm and dry. No generalized rash, no ecchymoses and no evidence of embolic lesions. HEAD: Atraumatic. Normocephalic. No temporal wasting, or tenderness. EYES: [place] conjunctiva. No petechia or hemorrhage. Pupils equal, round and reactive to light. No scleral icterus. No injection or drainage. EARS, NOSE AND THROAT: Nose without bleeding or purulent nasal discharge. No sinus tenderness. Mucous membranes pink and moist. No oral lesions noted. NECK: Trachea midline. Supple and not tender, no meningeal signs CARDIOVASCULAR: Regular rate and rhythm. No murmurs, rubs or gallops heard RESPIRATORY: Clear to auscultation. No rales, wheezing or rhonchi. Decreased at bases. Port in R upper chest, no evidence of infection ABDOMEN: Distended, hypoactive bowel sounds has scars compatible with multiple abdominal surgeries, has diffuse abdominal tenderness. Drain in place EXTREMITIES: No clubbing, cyanosis. No pedal edema. LLE larger compared to the RLE. Her L knee has effusion, healed incisions with some scabs present, NEUROLOGICAL: Awake and alert. Cranial nerves grossly intact. Motor grossly within normal limits. PSYCHIATRIC: Normal affect, calm and cooperative. LINE: Port with no evidence of infection Assessment & Plan Remarks IMPRESSION Enterobacter sepsis, ?source - has possible TOA on imaging studies; has drain in place now, 04/19 - recent D and C, and ablation for heavy bleeding; not sexually active - has some rectal wall thickening - has port ESRD, previous transplant x 5, last one done 2014 - on HD had AVG in her L upper arm Infection L knee, with yeast , OR end of January, has been on Cresemba, clinically improving C diff colitis Pancytopenia - leukocpenia, ?due to meds (Zosyn, Flagyl), ?due to infection RECOMMENDATION Change Zosyn to Cefepime, will cover the Enterobacter and other GNR She got dose of Vanco yesterday - will cover GPC Continue Diflucan for her knee infection Stop Flagyl Continue po VAnco for C diff Follow new fluid C/S Monitor progress Follow CBC D/W RN Explained plan to the patient Aury Cannon MD Apr 20, 2017 12:18
[2017-04-20] MEDS: CEFEPIME INJ 2,000 MG in SODIUM CHLORIDE 0.9% INJ 100 ML IV SCH (12:40)
[2017-04-20] MEDS: FLUCONAZOLE 200 MG PREMIX BAG 100 ML IV SCH (12:41)
[2017-04-20] MEDS: ONDANSETRON HCL 4 MG/2 ML VIAL IV PRN (13:59)
[2017-04-20 16:54] LABS: HEPARIN AB OD 0.044 O.D. (0.000-0.300); HEPARIN INDUCED PLATELET AB NEGATIVE (NEGATIVE)
--- NOTE | 2017-04-20 18:47 | RADRPT ---
EXAM DATE/TIME: 04/20/2017 18:16 [place] COMPARISON: CT ABDOMEN & PELVIS W/O CONTRAST, April 18, 2017, 16:08. INDICATIONS : Follow up abscess drainage. ORAL CONTRAST: No oral contrast ingested. RADIATION DOSE: 12.77 CTDIvol (mGy) MEDICAL HISTORY : Hypertension. Renal failure, acute. Deep venous thrombosis. SURGICAL HISTORY : 5 renal transplants ENCOUNTER: Subsequent ACUITY: 2 days PAIN SCALE: 7/10 LOCATION: low abdomen TECHNIQUE: Volumetric scanning of the abdomen and pelvis was performed. Using automated exposure control and ad justment of the mA and/or kV according to patient size, radiation dose was kept as low as reasonably achievable to obtain optimal diagnostic quality images. DICOM format image data is available electro nically for review and comparison. FINDINGS: Small bilateral pleural effusions. Scattered abdominal ascites greatest in the upper abdomen. Diverti culosis of the colon. There is a pigtail catheter in the left adnexa and the complex fluid collection remains but significantly smaller measuring 7.4 x 3.8 cm. Calvo catheter decompresses the urinary bl adder. Bilobed right adnexal mass again seen. Hepatosplenomegaly again noted. There is some slight an asarca. Atrophic [place] kidneys. Right lower quadrant transplanted kidney. CONCLUSION: 1. The complex fluid collection left adnexa has significantly decreased in size. 2. Stable findings as above. Yusuf Jacob MD on April 20, 2017 at 18:41 Board Certified Radiologist. This report was verified electronically.
[2017-04-20] MEDS ORDERED: LORazepam 2 MG/ML VIAL IV PUSH ONE (19:30)
--- NOTE | 2017-04-20 19:33 | HHI.NPPN ---
Subjective General Problems: Anemia, Hypertension Renal Failure: End Stage Renal Disease History of Present Illness 27-year-old female with past medical history of hypertension, hypothyroidism, gastroesophageal reflux disease, history of chronic anemia, end-stage renal disease on hemodialysis two times per week, history of multiple renal transplants in the past who was admitted because of heavy vaginal bleeding after she had an IUD placed. I was called to see the patient for the management of dialysis. Additional Remarks Patient is alert, abd. pain is much better, no SOB. Review of Systems General Constitutional: Fatigue Cardiovascular Cardiac: MUIR Gastrointestinal Gastrointestinal: Abdominal Pain, Nausea & Vomiting Objective Data Data 04/19/17 04/20/17 18:59 06:59 Intake Total 576 ml 2373 ml Output Total 325 ml 300 ml Balance 251 ml 2073 ml IV Total 279 ml 1553 ml Packed Cells 250 ml Platelets 297 ml 570 ml Output Urine Total 175 ml 250 ml Drainage Total 150 ml 50 ml # Bowel Movements 3 Vital Signs Date Time Temp Pulse Resp B/P Pulse Ox O2 Delivery O2 Flow Rate FiO2 04/20/17 18:00 69 04/20/17 16:00 98.1 75 29 159/99 96 04/20/17 16:00 75 04/20/17 14:00 67 04/20/17 12:00 98.3 74 17 132/81 100 04/20/17 12:00 74 04/20/17 11:05 98.0 75 20 138/89 92 04/20/17 10:30 80 04/20/17 10:04 98.1 71 22 135/83 100 04/20/17 10:00 71 04/20/17 08:30 98.1 74 24 138/91 98 04/20/17 08:09 98.1 74 18 132/86 98 04/20/17 08:02 96 04/20/17 08:00 74 04/20/17 08:00 98.1 74 18 132/86 98 04/20/17 06:00 83 04/20/17 04:00 79 04/20/17 04:00 97.9 73 17 100/64 95 04/20/17 02:00 97.8 84 17 127/83 96 04/20/17 02:00 84 04/20/17 00:00 95 04/19/17 22:00 85 04/19/17 20:00 67 04/19/17 20:00 98.0 85 19 116/67 100 -: 04/20/17 1305 04/20/17 0505 Physical Exam General Appearance: No Acute Distress, Comfortable Eyes Eye Exam: Pupils Equal Throat Throat Exam: Oral Mucosa [place] & Moist Pulmonary Resp Exam: Breath Sounds Equal, No Distress, Decreased Bases Cardiology CV Exam: Regular, Normal Sinus Rhythm Gastrointestinal/Abdomen GI Exam: Soft, Bowel Sounds Present (mild lower abd. tenderness.), Non- Distended Extremeties Extremities Exam: Trace Edema Neurologic Neuro Exam: Alert, Awake, Oriented Psychiatric Psych Exam: Appropriate Responses Assessment/Plan Assessment Summary: Anemia of CKD, Hypertension, End Stage Renal Disease, Transplant Kidney Status Problem List: (1) Hypertension (2) Hypothyroidism (3) History of CVA (cerebrovascular accident) (4) Renal transplant failure and rejection (5) End stage chronic kidney disease (6) Anemia (7) Sepsis Plan Post transfusion Hgb. is stable. On Zosyn, Doxycycline and Fluconazole. ID is following. CT abd. noted. Now has drain inserted. Platelets slightly better, HIT antibodies negative. Patient has history of renal transplant, was on prednisone 7.5 mg daily and once a month injection of Nulojix, will give her both. BP is better. HD will be on Tuesday. Veronica Pichardo MD Apr 20, 2017 19:33
[2017-04-20] MEDS ORDERED: BELATACEPT IV ONE ×2 (20:00→22:00)
[2017-04-20] MEDS ORDERED: PILL SPLITTER OTHER PRN (20:00)
[2017-04-20] MEDS ORDERED: SODIUM CHLORIDE 0.9% IV ONE ×2 (20:00→22:00)
[2017-04-20] MEDS: predniSONE 5 MG TAB PO SCH (22:06)
[2017-04-21] VITALS (31 sets, daily range): BP systolic 138–188; BP diastolic 87–103; PULSE 61–96; RESP 19–35; TEMP 97.5–98.6; O2SAT 80–100
[2017-04-21] MEDS ORDERED: DEXTROSE 50% IN WATER 50 ML SYRINGE IV ONE (01:00)
[2017-04-21] MEDS: DEXTROSE 50% IN WATER 50 ML VIAL(D50) IV PUSH PRN (01:09)
[2017-04-21] MEDS: CHLORHEXIDINE GLUCONATE 2 % 1 PACK (2 CLOTHS) TOP SCH (03:09)
[2017-04-21] MEDS: ACETAMINOPHEN 1000 MG/100 ML VIAL IV SCH (03:09)
[2017-04-21] MEDS: INSULIN NovoLIN REGULAR SUPPLEMENTAL SCALE SQ SCH ×6 (04:00→20:00)
[2017-04-21] MEDS: HYDROmorphone HCL PF 1 MG/ML VIAL IV PUSH PRN ×2 (05:10→21:07)
[2017-04-21] MEDS: ONDANSETRON HCL 4 MG/2 ML VIAL IV PRN (05:27)
[2017-04-21] MEDS: DEXT 5%-NACL 0.9% 1000 ML INJ 1,000 ML IV SCH (05:28)
--- NOTE | 2017-04-21 05:59 | MB ---
cc: VIKTORIYA GAMBLE RUBY ANNE E. M.D. DATE OF 1990 DATE OF SERVICE 04/20/[address] Gamble CHIEF COMPLAINT Dr. Gamble requests consultation for Ms. Siu regarding thrombocytopenia. HISTORY OF PRESENT ILLNESS Ms. Siu is a 27-year-old woman with a history of medullary cystic kidney disease and developed end-stage renal disease at the age of 3. She has had multiple living donor kidney transplants. The first was in 1993 at [facility] from her father. She had a second donor, her mother. The first transplants lasted 8 and 6 years respectively. She has had peritoneal dialysis in the interim and has had subsequent donors from friends. After losing a graft in 2011 she could not resume peritoneal dialysis due to adhesions. 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 She has had bilateral allograft nephrectomies. She has been on anticoagulant therapy with Coumadin. Her last transplant was in 2004. The graft functioned for 1-1/2 years and she returned to hemodialysis. She does have residual function of the graft. She voids 1 to 1.5 liters per day. She is on hemodialysis twice a week. Her course was complicated by left patella fracture status post arthroscopic surgery. The knee surgery was complicated by Rosie albicans and she was placed on antifungal therapy for three months. She was on anticoagulant therapy with Eliquis prior to her knee surgery and was placed on Eliquis after. She has developed menorrhagia which was quite severe requiring D&C procedure, endometrial ablation on 03/24/2017. She presented on 04/15/2017 with fever, malaise, bloody discharge, diarrhea, pelvic cramping. She had severe anemia with hemoglobin of 7.6. Repeat the following morning was 6.7. She was transfused red cells and platelets on April 16 and April 17. On admission her white count was 4.8, hemoglobin of 7.6, platelet count 115,000. The following morning shows a hemoglobin of 6.7, a white blood cell count of 3.0, platelet count 100,000. Since admission, despite the platelet transfusions, her platelet count trended down to janey platelet count of 45,000 04/20/2017. Her anemia has stabilized and her hemoglobin actually increased to 9.3 at the time of the consultation. Her white blood cell count remained low, white blood cell count decreased to 1.5 with an ANC of around 1100. Infectious Disease and Nephrology have been consulted. Nephrology continues her dialysis twice a week. Infectious Disease is continuing her on her antibiotic therapy with Zosyn and Diflucan for her knee, p.o. Flagyl, p.o. vancomycin. In the meantime Dr. Espinoza has consulted to her [employer] Oncologist at [facility] along with the vocational nurse lvn and photographers' model. They are willing to accept the patient. However, they wanted her platelet count to be improved than her current. For this reason Hematology/Oncology is consulted to evaluate the thrombocytopenia. Ms. Siu denies any bleeding. She is nauseous. Zofran does not seem to help. She has no significant family history of cancer. She reports that the surgery in the left knee was done for her infection and the initial surgery was an arthroscopic one. Because of her severe thrombocytopenia, she has required platelet transfusion. There was lack of availability of O-negative platelets and therefore leukapheresed A-positive platelet was administered in 04/17/2017 and a second on 04/18/2017. She received WinRho after the second O-positive platelets. Subsequent platelet transfusions were O-negative. She was able to tolerate the procedure, drain abscess on 04/19/2017. She denies any overt bleeding. OF NOTE, on admission her PT and PTT were prolonged. Her fibrinogen appears to be trending down on admission; her fibrinogen is 492 and subsequently 374. PAST MEDICAL HISTORY 1. Hypothyroidism. 2. End-stage renal disease secondary to medullary cystic disease. 3. History of CVA. 4. Left patella fracture. 5. Left knee fungal infection. 6. Menorrhagia. PAST SURGICAL HISTORY 1. Left patella arthroscopic surgery. 2. D&C, procedure for endometrial ablation. 3. Multiple surgeries for kidney transplant. 4. Bilateral allograft nephrectomies. 5. Port placement. FAMILY HISTORY No family history of cancer. Sister with medullary cystic disease. SOCIAL HISTORY Denies any tobacco, alcohol or illicit drug use. PHYSICAL EXAMINATION VITAL SIGNS: Temperature 98.1, heart rate 69, respiratory 29, blood pressure 159/99. GENERAL: Ms. Siu is a 27-year-old woman is awake, alert, oriented. Her pupils are round, reactive to light and accommodation. Oropharynx is dry. NECK: Supple. LUNGS: With comfortable respirations. CARDIOVASCULAR EXAM: Regular rate and rhythm. ABDOMEN: Distended, multiple scars from abdominal surgery. Drain in place. LOWER EXTREMITIES: Left knee healing scar, mild erythema. Lower extremities with good pulses. LABORATORY DATA As described above. ASSESSMENT AND PLAN Ms. Siu is a 27-year-old woman with history hypothyroidism who developed end-stage renal disease secondary to medullary cystic kidney disease. Her course was complicated by CVA for which she is on chronic anticoagulant therapy. Her course was further complicated by fungal infection of the left knee. She developed menorrhagia while on Eliquis. She had the procedure of endometrial ablation and D&C. Subsequently today she developed fevers. CT scan of the abdomen showed hepatosplenomegaly, bilateral adnexal complex cystic masses and collection. She is admitted with sepsis. The wound in the knee grows Rosie albicans. She has Enterobacter bacteremia and C-diff colitis. She is critically ill, managed in the ICU. She has worsening cytopenias during her hospital stay. Hematology/Oncology is consulted for the cytopenias. She is planning transfer to her [employer] Oncology team at [place]; however, they require that the cytopenias are addressed. I discussed with Ms. Siu the differential diagnosis for the cytopenias mainly the thrombocytopenia. The primary team has explored the possibility heparin-induced thrombocytopenia. Antibodies were negative. She had thrombocytopenia worsening before the administration of the Rh-positive platelets. She has had very little response to the platelet count which suggests consumption. There is evidence of hepatosplenomegaly which probably contributes to the cytopenias. She fortunately has no overt bleeding associated with it. After 3 units of platelets administered her platelet count increased to 60,000. I will check a coagulation profile. I am concerned about a lupus anticoagulant or antiphospholipid antibodies. She did develop thromboses of her allografts several years ago. She has been on anticoagulant therapy. She came in with prolonged PT/PTT which may be related to sepsis; however, lupus anticoagulant and antiphospholipid antibodies will be checked. A peripheral smear will be reviewed with pathology. I will obtain a platelet count on blue top tube to rule out thrombocytopenia. No specific therapy is required from hematology standpoint. She is tolerating her antibiotic therapy. She is needing her antibiotic therapy in light of her bacteremia and the abscess is being drained. The cytopenias are likely multiple factors such as sepsis as evidenced by a prolonged PT/PTT, decrease in fibrinogen. She has an infectious etiology. She is on multiple antibiotic therapies that can contribute to the cytopenias in addition to her baseline hepatosplenomegaly which is seen on imaging study. Etiology of that is less clearly identified at present. Her questions were answered to her satisfaction. Her case was discussed with the vocational nurse lvn. Dede Peralta MD RAD/SSB /8:06 PM /5:26 AM
[2017-04-21 08:20] LABS: HEMATOCRIT 32.9 % (35.0-46.0); MEAN CELL VOLUME 87.2 FL (80.0-100.0); MEAN CORPUSCULAR HEMOGLOBIN 28.3 PG (27.0-34.0); MEAN CORPUSCULAR HGB CONC 32.5 % (32.0-36.0); PLATELET COUNT 58 TH/MM3 (150-450); RED BLOOD COUNT 3.77 MIL/MM3 (4.00-5.30); WHITE BLOOD COUNT 2.3 TH/MM3 (4.0-11.0)
[2017-04-21] MEDS: CHOLECALCIFEROL (VIT D3) 1000 UNIT TAB PO SCH (08:30)
[2017-04-21] MEDS: ASPIRIN EC 81 MG TABEC PO SCH (08:31)
[2017-04-21] MEDS: predniSONE 5 MG TAB PO SCH (08:31)
[2017-04-21] MEDS: DOCUSATE SODIUM 50 MG/SENNA 8.6 MG TAB PO SCH ×2 (08:31→21:06)
[2017-04-21] MEDS: VANCOMYCIN 500 MG VIAL (FOR ORAL USE ONLY) PO SCH ×4 (08:31→21:06)
[2017-04-21] MEDS: DRONEDARONE 400 MG TAB PO SCH ×2 (08:31→21:06)
[2017-04-21] MEDS: FAMOTIDINE 20 MG/2 ML VIAL IV PUSH SCH ×2 (08:31→21:06)
[2017-04-21 08:32] LABS: REVIEW FLAG AUTO DIFF
[2017-04-21] MEDS: SODIUM CHLORIDE 0.9% FLUSH 10 ML FLUSH SCH ×2 (08:32→21:05)
[2017-04-21 08:35] LABS: APTT (PATIENT) 51.1 SEC (24.3-30.1); INTERNATIONAL NORMALIZED RATIO 1.7 RATIO; PROTHROMBIN TIME - PATIENT 19.4 SEC (9.8-11.6)
[2017-04-21 08:45] LABS: BICARBONATE 15.4 MEQ/L (21.0-32.0); POTASSIUM 3.7 MEQ/L (3.5-5.1)
[2017-04-21 08:46] LABS: MAGNESIUM 1.8 MG/DL (1.5-2.5)
--- NOTE | 2017-04-21 09:10 | HHI.PR ---
Subjective Remarks very confused and she is hallucinating pain 5/10 discussed need to eat had diarrhea this am Objective - Vital Signs Date Time Temp Pulse Resp B/P Pulse Ox O2 Delivery O2 Flow Rate FiO2 04/21/17 06:00 79 04/21/17 04:00 97.8 73 26 156/98 100 04/21/17 04:00 73 04/21/17 02:00 82 04/21/17 00:00 98.6 83 28 138/90 100 04/21/17 00:00 83 04/20/17 22:00 75 04/20/17 20:00 90 04/20/17 20:00 97.6 90 30 172/101 97 04/20/17 18:00 69 04/20/17 16:00 98.1 75 29 159/99 96 04/20/17 16:00 75 04/20/17 14:00 67 04/20/17 12:00 98.3 74 17 132/81 100 04/20/17 12:00 74 04/20/17 11:05 98.0 75 20 138/89 92 04/20/17 10:30 80 04/20/17 10:04 98.1 71 22 135/83 100 04/20/17 10:00 71 I/O 04/20/17 04/20/17 04/20/17 04/21/17 04/21/17 04/21/17 07:00 15:00 23:00 07:00 15:00 23:00 Intake Total 1041 ml 1358 ml 1157 ml 657 ml Output Total 170 ml 137 ml 150 ml 120 ml Balance 871 ml 1221 ml 1007 ml 537 ml Intake Oral 25 ml 120 ml 120 ml IV Total 791 ml 549 ml 1037 ml 537 ml Packed Cells 250 ml 250 ml Platelets 534 ml Output Urine Total 150 ml 125 ml 150 ml 120 ml Drainage Total 20 ml 12 ml 0 ml # Bowel Movements 2 2 1 Result Diagram: 04/21/1740 04/21/[address] shows diminution of masses some anarsarco tho hepatosplenomagaly--might contribute to platelet sequestration and breakdown need uric acid needs to eat! needs dialysis Ayala Espinoza MD Apr 21, 2017 09:10
[2017-04-21] MEDS: FLUCONAZOLE 200 MG PREMIX BAG 100 ML IV SCH (11:14)
[2017-04-21] MEDS ORDERED: LIDOCAINE HCL 2% 100 MG/5 ML SYRINGE IV PUSH ONE (13:15)
[2017-04-21] MEDS: CEFEPIME INJ 2,000 MG in SODIUM CHLORIDE 0.9% INJ 100 ML IV SCH (13:34)
[2017-04-21] MEDS ORDERED: LORazepam 2 MG/ML VIAL IV PUSH ONE (13:45)
[2017-04-21 14:05] LABS: ANION GAP 17 MEQ/L (5-15); BICARBONATE 15.8 MEQ/L (21.0-32.0); BLOOD UREA NITROGEN 23 MG/DL (7-18); CHLORIDE 108 MEQ/L (98-107); GLOMERULAR FILTRATION RATE 10 ML/MIN (>89); MAGNESIUM 1.7 MG/DL (1.5-2.5); POTASSIUM 3.8 MEQ/L (3.5-5.1); SODIUM (NA) 141 MEQ/L (136-145)
[2017-04-21 14:07] LABS: INDIRECT BILIRUBIN 0.6 MG/DL (0.0-0.8); TOTAL BILIRUBIN ADULT 1.9 MG/DL (0.2-1.0)
[2017-04-21] MEDS ORDERED: OLANZapine IM 10 MG VIAL IM ONE ×2 (14:15→15:30)
--- NOTE | 2017-04-21 14:26 | PD.ONC.PN ---
Subjective Subjective Remarks Afebrile overnight. Patient complaining of pain at her right arm IV site. Fatigued, having a hard time sleeping at night. Objective Data Date Time Temp Pulse Resp B/P Pulse Ox O2 Delivery O2 Flow Rate FiO2 04/21/17 10:00 64 20 100 04/21/17 10:00 64 04/21/17 09:00 72 04/21/17 09:00 72 22 157/94 100 04/21/17 08:00 71 04/21/17 08:00 98.1 71 22 148/94 97 04/21/17 07:00 84 04/21/17 07:00 84 33 164/100 04/21/17 06:00 79 04/21/17 04:00 97.8 73 26 156/98 100 04/21/17 04:00 73 04/21/17 02:00 82 04/21/17 00:00 98.6 83 28 138/90 100 04/21/17 00:00 83 04/20/17 22:00 75 04/20/17 20:00 90 04/20/17 20:00 97.6 90 30 172/101 97 04/20/17 18:00 69 04/20/17 16:00 98.1 75 29 159/99 96 04/20/17 16:00 75 04/21/17 04/21/17 04/21/17 06:59 14:59 22:59 Intake Total 657 ml Output Total 120 ml Balance 537 ml Result Diagram: 04/21/17 0740 04/21/17 1325 Laboratory Results Laboratory Tests Test 04/21/17 04/21/17 04/21/17 07:40 08:29 13:25 White Blood Count 2.3 TH/MM3 Red Blood Count 3.77 MIL/MM3 Hemoglobin 10.7 GM/DL Hematocrit 32.9 % Mean Corpuscular Volume 87.2 FL Mean Corpuscular Hemoglobin 28.3 PG Mean Corpuscular Hemoglobin 32.5 % Concent Red Cell Distribution Width 23.0 % Platelet Count 58 TH/MM3 Mean Platelet Volume 9.1 FL Prothrombin Time 19.4 SEC Prothromb Time International 1.7 RATIO Ratio Activated Partial 51.1 SEC Thromboplast Time Fibrinogen 306 mg/dL Sodium Level 139 MEQ/L 141 MEQ/L Potassium Level 3.7 MEQ/L 3.8 MEQ/L Chloride Level 106 MEQ/L 108 MEQ/L Carbon Dioxide Level 15.4 MEQ/L 15.8 MEQ/L Anion Gap 18 MEQ/L 17 MEQ/L Blood Urea Nitrogen 21 MG/DL 23 MG/DL Creatinine 5.10 MG/DL 5.23 MG/DL Estimat Glomerular Filtration 10 ML/MIN 10 ML/MIN Rate Random Glucose 108 MG/DL 115 MG/DL Uric Acid 5.5 MG/DL Calcium Level 9.0 MG/DL 8.4 MG/DL Phosphorus Level 1.9 MG/DL 1.9 MG/DL Magnesium Level 1.8 MG/DL 1.7 MG/DL Lactate Dehydrogenase 212 U/L Blood Type O NEGATIVE Direct Antiglobulin Test NEGATIVE (Rosa) Total Bilirubin 1.9 MG/DL Direct Bilirubin 1.3 MG/DL Indirect Bilirubin 0.6 MG/DL Aspartate Amino Transf 9 U/L (AST/SGOT) Alanine Aminotransferase 6 U/L (ALT/SGPT) Alkaline Phosphatase 256 U/L Ammonia LESS THAN 10 MCMOL/L Troponin I LESS THAN 0.02 NG/ML Total Protein 4.7 GM/DL Albumin 2.1 GM/DL Culture Results Microbiology Date/Time Procedure Status Source Growth 04/19/17 11:35 Gram Stain - Final Complete Fluid Other 04/19/17 11:35 Body Fluid Culture - Final Complete Enterobacter Cloacae Administered Medications Medications (Trade) Dose Ordered Sig/Mega Route PRN Reason Start Time Stop Time Status Last Admin Dose Admin Aspirin (Ecotrin Ec) 81 mg DAILY PO 04/16/17 09:00 04/21/17 08:31 Dronedarone (Multaq) 400 mg BID PO 04/15/17 21:00 04/21/17 08:31 Cholecalciferol (Vitamin D3) 2,000 units DAILY PO 04/16/17 09:00 04/21/17 08:30 Sodium Chloride (NS Flush) 2 ml UNSCH PRN .XX FLUSH AFTER USING IV ACCESS 04/15/17 19:00 04/18/17 08:20 Sodium Chloride (NS Flush) 2 ml BID .XX 04/15/17 21:00 04/21/17 08:32 Acetaminophen (Tylenol) 650 mg Q6H PRN PO PAIN 1-10 AND/OR FEVER >101F 04/15/17 19:00 04/17/17 23:57 Ondansetron HCl (Zofran Inj) 4 mg Q6H PRN IV NAUSEA OR VOMITING 04/15/17 19:00 04/21/17 05:27 Chlorhexidine Gluconate (Chlorhexidine 2% Cloth) Taper DAILY@04 TOP 04/16/17 04:00 04/12/18 03:59 04/21/17 03:09 Senna/Docusate Sodium 1 tab 1 tab BID PO 04/15/17 21:00 04/17/17 09:06 Fluconazole/ Sodium Chloride (Diflucan 200 Mg Premix Bag) 100 ml @ 100 mls/hr Q24H IV 04/16/17 11:00 04/21/17 11:14 Oxycodone HCl (Roxicodone) 10 mg Q4H PRN PO pain 1-6 04/16/17 07:45 04/18/17 10:06 Hydromorphone HCl (Dilaudid Pf Inj) 0.5 mg Q3H PRN IV PUSH pain 7-10 or not taking po 04/16/17 07:45 04/21/17 05:10 Dextrose (D50w (Vial) Inj) 25 ml UNSCH PRN IV PUSH HYPOGLYCEMIA-SEE COMMENTS 04/16/17 07:45 04/21/17 01:09 Famotidine 10 mg 10 mg Q12HR IV PUSH 04/16/17 21:00 04/21/17 08:31 Sodium Chloride (NS 1000 ml Inj) 1,000 ml @ 0 mls/hr Q0M PRN IV For Prime & Rinse Back 04/17/17 11:10 04/18/17 19:27 Epoetin Torsten 06419 units 10,000 units UNSCH PRN IV WITH DIALYSIS 04/17/17 11:15 04/18/17 19:27 Dextrose/Sodium Chloride (D5W-NS 1000 ml Inj) 1,000 ml @ 120 mls/hr Q8H20M IV 04/17/17 17:30 04/21/17 05:28 Prochlorperazine Edisylate (Compazine Inj) 5 mg Q6H PRN IV PUSH nausea 04/17/17 20:15 04/19/17 14:34 Vancomycin HCl 500 mg 500 mg QID PO 04/20/17 13:00 04/21/17 13:34 Cefepime HCl/ Sodium Chloride (Maxipime Inj/NS Inj) 100 ml @ 200 mls/hr Q24H IV 04/20/17 13:00 04/21/17 13:34 Prednisone 7.5 mg 7.5 mg DAILY PO 04/20/17 19:30 04/21/17 08:31 Potassium Phosphate/Sodium Chloride (Potassium Phosphate Inj/NS 250 ml Inj) 260 ml @ 43.333 mls/ hr ONCE ONCE IV 04/21/17 15:00 04/21/17 20:59 04/21/17 14:04 Objective Remarks GENERAL: Young woman, chronically ill appearing lying in bed resting. + edematous with cushingoid appearance. SKIN: Warm and dry. IV line, right arm, no bleeding. HEAD: Normocephalic. EYES: No injection or drainage. NECK: Supple, trachea midline. CARDIOVASCULAR: Regular rate and rhythm RESPIRATORY: Breath sounds equal bilaterally. No accessory muscle use. GASTROINTESTINAL: Abdomen distended with mild tenderness throughout. drain in place with SS drainage. EXTREMITIES: No cyanosis. 2+ BLE edema NEUROLOGICAL: awake and alert, normal speech. Assessment/Plan Problem List: (1) Renal transplant disorder Status: Acute Plan: --nephrology following --on dialysis twice weekly history of medullary cystic kidney disease and developed end-stage renal disease at the age of 3. She has had multiple living donor kidney transplants. The first was in 1993 at [facility] from her father. She had a second donor, her mother. The first transplants lasted 8 and 6 years respectively. She has had peritoneal dialysis in the interim and has had subsequent donors from friends. After losing a graft in 2011 she could not resume peritoneal dialysis due to adhesions. 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 She has had bilateral allograft nephrectomies. She has been on anticoagulant therapy with Coumadin. Her last transplant was in 2004. The graft functioned for 1-1/2 years and she returned to hemodialysis. She does have residual function of the graft. She voids 1 to 1.5 liters per day. She is on hemodialysis twice a week. (2) Bilateral tubo-ovarian mass Status: Acute Plan: CT abdomen showed hepatosplenomegaly, bilateral adnexal complex cystic masses and collection. --on multiple abx --had abscess drainage in IR on 04.19 (3) S/P endometrial ablation Status: Acute Plan: --developed menorrhagia while on Eliquis. --had the procedure of endometrial ablation and D&C. (4) Sepsis Status: Acute Plan: --ID following, on multiple abx (5) Pancytopenia Status: Acute Plan: --due to DIC sepsis, hepatosplenomegaly, multiple antibiotics. --recommend only transfusing platelets if bleeding. Assessment 27-year-old female admitted on 04/15/2017 with fever, malaise, bloody discharge , diarrhea, pelvic cramping.. --was on anticoagulant therapy with Eliquis for h/o CVA --has been transferred to [facility] but they are waiting for platelet count to improve. --h/o Left patella arthroscopic surgery. Plan 1. monitor CBC. 2. would not recommend platelet transfusion unless bleeding. platelets will continue to be consumed via DIC as long as the patient is septic. Attending Statement The exam, history, and the medical decision-making described in the above note were completed with the assistance of the mid-level provider. I reviewed and agree with the findings presented. I attest that I had a [id number] encounter with the patient on the same day, and personally performed and documented my assessment and findings in the medical record. Pt seen and examined. Events noted, delirium pt OOB at 5AM awake. Discussed use of Lorazepam would help with nausea w/o EKG changes. Pt agree, ideal maybe use under the tongue. Discussed w/ wire annealer Zyprexa for nausea at night, drug cause sedation. Discussed with family and patient, trend of her platelet count, the current laboratory findings. She seems to be making platelets as peripheral smear show large platelets w/o clumps. Therefore peripheral destruction is likely etiology, furthermore, suboptimal rise in platelet count with platelet transfusion 40K-->60K after 3U SDP argues peripheral destruction. Discussed hepatosplenomegaly contribute to sequestration, mostly I suspect low grade DIC from infection. Fibrinogen trending down and pt/ptt prolonged. Fortunately no bleeding or clotting. Discussed w/ Dr. Espinoza, agree with plan to stabilize patient and continue treatment, transfer if needed. Marita Duran Apr 21, 2017 14:26 Dede Peralta MD Apr 21, 2017 15:51
--- NOTE | 2017-04-21 14:33 | HHI.CCPN ---
Subjective Remarks/Hospital Course Hospital Course: 27-year-old female who has a chronic renal condition that caused early renal failure in her teens now status post 5 transplants, has had issues of chronic immunosuppresion, including rapid development of pneumonia and ARDS from a cold ; joint sepsis and recent left knee debridement, CVA and need for chronic anticoagulation and dialysis twice weekly in [place], presents today complaining of abdominal pain, fevers, and diarrhea. . Earlier this month, she called NATIONAL FACILITIES MANAGER with extremely heavily bleeding despite placement of mirena IUD. This was so profound she bled to a hgb< 5 and required ablation and transfusion. She did well the first two weeks and then developed the above symptoms two days ago. She was started on by mouth antibiotics by her NATIONAL FACILITIES MANAGER physician but her symptoms progressed and she presents to ED today after dialysis. MRI obtained today show unremarkable uterus BUT suggests bilateral TOAs which is unexpected. She is followed by NATIONAL FACILITIES MANAGER with desire to avoid surgical intervention given co morbidities. Subjective: 04/16: complaints of abdominal pain not well-controlled with current percocet. hypoglycemic overnight requiring d50w x 1. hemodynamics stabilized. 04/17: abdominal pain is stable. off vasopressors. thrombocytopenic and anemic this morning requiring 2 units prbc and platelets. no evidence of DIC based on high fibrinogen. otherwise clinically stable. again discussed care with painting trades worker, will plan for conservative management with iv abx and repeat imaging before pursuing surgical options, unless she clinically declines. 04/18: Overnight results patient's C. difficile positive. By mouth Flagyl discontinued. IV Flagyl initiated with by mouth vancomycin. ID following. Patient noted to be thrombocytopenic concern for possible surgical intervention secondary to bilateral adnexal masses. We'll transfuse 2 units of platelets this a.m., and insertion of Calvo catheter per [employer] recommendations. Ofirmev added for 24 hours for pain control. 04/19: Improvement in pain control overnight. Patient remains thrombocytopenic 2 units of platelets provided. Hit panel ordered Patient to IR this afternoon for percutaneous drainage of tubo-ovarian abscesses. Transfer orders placed for [facility] transplant [facility] for management by Dr. Dakota Harris, 04/20: The patient underwent CT-guided percutaneous drainage of left tubo- ovarian abscess yesterday with drainage of approximately 60 cc , overnight perc drain in situ an additional 50 cc. Patient complains of mild pain in the pelvic region, Ofirmev every 6 hours added to medication regimen in conjunction with Dilaudid. Patient scheduled for pelvic ultrasound this a.m.. Patient delay in transfer to transplant facility secondary to hematological concerns by facility. Optimization in process,the patient received 2 units of packed red blood cells, and 2 units of platelets overnight, subsequent platelet count continues to be 44. Additionally given this a.m. 2 units of Rh+ platelets to be transfused, patient received Rhogam and and is covered approximately several days ago. This was discussed with Dr. Hylton, pathology secondary to the unavailability of Rh- products. D dimer and fibrinogen labs ordered, hematology oncology consulted appreciate recommendations. 04/21: The patient was noted to have sustained ventricular bigeminy, but normotensive at 12 noon . Stat 12-lead EKG revealed QT prolongation, the patient was noted to have hypophosphatemia which was being replaced . The patient was also noted to have ICU delirium last night with escalation this afternoon. Patient noted not to have had any sleep for the last 48 hours, Ativan 0.5 mg 1 dose given. Olanzapine scheduled for tonight in addition melatonin if needed, to maintain sleep hygiene. No transfer to [facility] at this time, patient continues to have persistent nausea and vomiting, in the setting of QT prolongation. Unable to maintain a PO diet, to include liquids, now also concern for aspiration and patient's confused state. Renal formulation, PPN initiated. Consideration for Dobbhoff tube placement and initiation of tube feeds, but patient agitated, with persistent nausea and vomiting at this time. Objective Vital Signs Date Time Temp Pulse Resp B/P Pulse Ox O2 Delivery O2 Flow Rate FiO2 04/21/17 10:00 64 20 100 04/21/17 09:00 157/94 04/21/17 08:00 98.1 04/19/17 09:19 21 04/18/17 07:27 Nasal Cannula 2.00 Intake and Output 04/20/17 04/20/17 04/21/17 08:00 16:00 00:00 Intake Total 1041 ml 1358 ml 1157 ml Output Total 170 ml 137 ml 150 ml Balance 871 ml 1221 ml 1007 ml Result Diagram: 04/21/17 0740 04/21/17 1325 Other Results Microbiology Date/Time Procedure Status Source Growth 04/19/17 11:35 Gram Stain - Final Complete Fluid Other 04/19/17 11:35 Body Fluid Culture - Final Complete Enterobacter Cloacae Objective Remarks GENERAL: young chronically ill-appearing female, sitting up in semi-recliner chair, confused speaking inappropriately. With complaints of nausea SKIN: Warm and dry. HEAD: Normocephalic. EYES: No scleral icterus. No injection or drainage. NECK: trachea midline. No JVD. CARDIOVASCULAR: Regular rate and rhythm. . RESPIRATORY: equal chest rise. on room air. Nasal cannula O2 at 2 L/m GASTROINTESTINAL: Abdomen soft, moderately tender to palpation over pelvis. only mildly diffusely tender in the upper quadrants. no guarding or rebound. nondistended. Left percutaneous pelvic drain noted, no erythema, dressing C/D/ I minimal serosanguineous fluid noted MUSCULOSKELETAL: No cyanosis, peripheral edema noted 1+, left arm 2+ peripheral edema. EXTREMITIES: No clubbing cyanosis or edema Neuro: awake, alert, oriented. RASS 0. no focal deficits. Procedures 04/19 percutaneous tubo-ovarian abscesses via IR 04/20 pelvic ultrasound 04/20 CT abdomen and pelvis Urinary Catheter: Yes Calvo insert reason: Measure Accurate Output A/P Assessment and Plan Abdominal pain- moderate - secondary to tubo-ovarian abscesses - oxycodone 10mg po q4h prn - dilaudid 0.5mg iv q3h prn Severe Sepsis Tubo-ovarian Abscess Enterobacter bacteremia C. difficile - f/u blood cultures- growing enterobacter - continue Zosyn, Flagyl, vancomycin - Infectious disease following Dr. Cannon - NATIONAL FACILITIES MANAGER following Dr. Dee -04/20 CT abdomen and pelvis bilobed right adnexal mass, diverticulosis, etc. left adnexa, small bilateral pleural effusions, mild abdominal ascites, with slight anasarca - 04/19 S/P percutaneous drainage left tubo-ovarian abscess- Enterobacter cloacae Rosie wound infection -- unclear if colonization or infection, but immunocompromised and clinically toxic appearing -- fluconazole, renally adjusted iv. -- ID consult. Hypoglycemia- resolved. -- prn d50w, for nausea -- glucose checks q4h -- D5NS @ 84cc/hr, will discontinue with the initiation of PPN this evening End-stage renal disease - Hemodialysis per nephrology - consult nephrology- Dr. Pichardo following Hypothyroidism -- Obtain TSH level, Free T4 Anemia secondary to critical illness and ESRD- worsening today -- received 1 unit prbc 04/16 -- 2 units prbc 04/17, 2 units PRBC 04/19 -- goal hgb > 7 Thrombocytopenia -- likely secondary to sepsis. low probability HIT 04/17 1 u Plts -- 2 units platelets transfused today given her anemia and critical illness. --04/19 4 units Platelets (Rh -), 04/20 2 units (Rh +) RhoGAM previously given. Discussion with Dr. Hylton pathology patient does not plan on in the near future. Patient remains thrombocytopenic. -- goal plt > 50k. --Hematology/oncology following Dr. Peralta, follow-up recommendations -04/19- HIT panel negative Ventricular bigeminy QT prolongation -Obtain stat EKG -Replete phosphorus -Mag 1.8, potassium 3.7 Hypertension - Clonidine when necessary Mild protein calorie malnutrition Persistent nausea and vomiting -Initiate PPN at 42 cc/hr (renal formulation) -Continue to encourage PO intake as tolerated -No Zofran, Reglan or Compazine 2/2 QT prolongation , consider olanzapine 1 dose ICU Delirium Toxic metabolic encephalopathy Altered mental status -Maintain sleep hygiene, Ativan 0.5 mg , may repeat 1 dose this evening -Melatonin 5 mg @ HS PRN for insomnia -Obtain ammonia level -Monitor electrolytes MSK: - Left arm peripheral edema 2+ - 04/19 venous Doppler ultrasound bilateral upper extremities, negative for DVT -Maintain elevation of left arm -Healing surgical wound left knee-line Neosporin ointment when necessary GERD Nausea and vomiting - Pantoprazole -Zofran-on hold secondary to prolongation of QT Hypophosphatemia -Repleted per ICU electrolyte replacement protocol, repeat levels in a.m. DVT GI prophylaxis - Teds SCDs - Pantoprazole Dispo: Discuss with Dr. Peralta .Parents at bedside ,concern for nutritional status/ intake, poor by mouth intake., Altered mental status concern for aspiration at this point. Provided medical status update to parents along with explanation of initiation of PPN, encourage PO intake as tolerated and importance of sleep hygiene with planned methods for circumventing ICU delirium. All questions answered Level 3 Physician Aimee Jennings MD Apr 21, 2017 14:33
[2017-04-21] MEDS ORDERED: POTASSIUM PHOSPHATE INJ 30 MMOL in SODIUM CHLOR 0.9% 250 ML INJ 250 ML IV ONE (15:00)
--- NOTE | 2017-04-21 18:36 | HHI.NPPN ---
Subjective General Problems: Anemia, Hypertension Renal Failure: End Stage Renal Disease History of Present Illness 27-year-old female with past medical history of hypertension, hypothyroidism, gastroesophageal reflux disease, history of chronic anemia, end-stage renal disease on hemodialysis two times per week, history of multiple renal transplants in the past who was admitted because of heavy vaginal bleeding after she had an IUD placed. I was called to see the patient for the management of dialysis. Additional Remarks Patient is sleepy after Ativan given, not in distress. Review of Systems General Constitutional: Fatigue Cardiovascular Cardiac: MUIR Gastrointestinal Gastrointestinal: Abdominal Pain, Nausea & Vomiting Objective Data Data 04/20/17 04/21/17 19:00 07:00 Intake Total 1358 ml 1814 ml Output Total 137 ml 270 ml Balance 1221 ml 1544 ml Intake Oral 25 ml 240 ml IV Total 549 ml 1574 ml Packed Cells 250 ml Platelets 534 ml Output Urine Total 125 ml 270 ml Drainage Total 12 ml 0 ml # Bowel Movements 2 3 Vital Signs Date Time Temp Pulse Resp B/P Pulse Ox O2 Delivery O2 Flow Rate FiO2 04/21/17 16:30 66 04/21/17 16:30 66 19 148/93 100 04/21/17 16:00 63 04/21/17 16:00 98.1 63 35 147/95 90 04/21/17 15:30 69 28 159/99 100 04/21/17 15:30 69 04/21/17 15:00 74 27 167/103 83 04/21/17 15:00 74 04/21/17 14:38 80 04/21/17 14:38 80 32 154/92 81 04/21/17 14:31 75 04/21/17 14:01 94 04/21/17 14:00 94 32 160/101 80 04/21/17 14:00 83 04/21/17 13:38 72 04/21/17 13:30 96 04/21/17 13:30 96 34 188/97 98 04/21/17 13:00 74 04/21/17 13:00 74 24 157/99 100 04/21/17 12:56 73 04/21/17 12:51 75 04/21/17 12:25 64 04/21/17 12:00 98.3 65 23 155/93 100 04/21/17 12:00 65 04/21/17 11:00 68 25 156/87 99 04/21/17 11:00 68 04/21/17 10:00 64 20 100 04/21/17 10:00 64 04/21/17 09:00 72 04/21/17 09:00 72 22 157/94 100 04/21/17 08:00 71 04/21/17 08:00 98.1 71 22 148/94 97 04/21/17 07:00 84 04/21/17 07:00 84 33 164/100 04/21/17 06:00 79 04/21/17 04:00 97.8 73 26 156/98 100 04/21/17 04:00 73 04/21/17 02:00 82 04/21/17 00:00 98.6 83 28 138/90 100 04/21/17 00:00 83 04/20/17 22:00 75 04/20/17 20:00 90 04/20/17 20:00 97.6 90 30 172/101 97 -: 04/21/17 0740 04/21/17 1325 Physical Exam General Appearance: Sleeping Eyes Eye Exam: Pupils Equal Throat Throat Exam: Oral Mucosa [place] & Moist Pulmonary Resp Exam: Breath Sounds Equal, No Distress, Decreased Bases Cardiology CV Exam: Regular, Normal Sinus Rhythm Gastrointestinal/Abdomen GI Exam: Soft, Bowel Sounds Present (mild lower abd. tenderness.), Non- Distended Extremeties Extremities Exam: Trace Edema Neurologic Neuro Remarks Sleepy. Assessment/Plan Assessment Summary: Anemia of CKD, Hypertension, End Stage Renal Disease, Transplant Kidney Status Problem List: (1) Hypertension (2) Hypothyroidism (3) History of CVA (cerebrovascular accident) (4) Renal transplant failure and rejection (5) End stage chronic kidney disease (6) Anemia (7) Sepsis Plan Post transfusion Hgb. is stable. On Zosyn, Doxycycline and Fluconazole. ID is following. CT abd. noted. Now has drain inserted. Platelets slightly better, HIT antibodies negative. Patient has history of renal transplant, on prednisone 7.5 mg daily, got the injection of Nulojix on 04/20. Has hallucination, now sedated. Started on IVF, and Po4 replaced. HD will be in AM. Problem Qualifiers (1) Hypertension: Qualified Code: I10 - Essential hypertension Veronica Pichardo MD Apr 21, 2017 18:36
--- NOTE | 2017-04-21 19:22 | HHI.PR ---
Subjective Remarks sleeping soundly Mom in room Objective - Vital Signs Date Time Temp Pulse Resp B/P Pulse Ox O2 Delivery O2 Flow Rate FiO2 04/21/17 18:30 62 04/21/17 18:00 61 04/21/17 17:30 65 04/21/17 17:00 66 04/21/17 16:30 66 04/21/17 16:30 66 19 148/93 100 04/21/17 16:00 63 04/21/17 16:00 98.1 63 35 147/95 90 04/21/17 15:30 69 28 159/99 100 04/21/17 15:30 69 04/21/17 15:00 74 27 167/103 83 04/21/17 15:00 74 04/21/17 14:38 80 04/21/17 14:38 80 32 154/92 81 04/21/17 14:31 75 04/21/17 14:01 94 04/21/17 14:00 94 32 160/101 80 04/21/17 14:00 83 04/21/17 13:38 72 04/21/17 13:30 96 04/21/17 13:30 96 34 188/97 98 04/21/17 13:00 74 04/21/17 13:00 74 24 157/99 100 04/21/17 12:56 73 04/21/17 12:51 75 04/21/17 12:25 64 04/21/17 12:00 98.3 65 23 155/93 100 04/21/17 12:00 65 04/21/17 11:00 68 25 156/87 99 04/21/17 11:00 68 04/21/17 10:00 64 20 100 04/21/17 10:00 64 04/21/17 09:00 72 04/21/17 09:00 72 22 157/94 100 04/21/17 08:00 71 04/21/17 08:00 98.1 71 22 148/94 97 04/21/17 07:00 84 04/21/17 07:00 84 33 164/100 04/21/17 06:00 79 04/21/17 04:00 97.8 73 26 156/98 100 04/21/17 04:00 73 04/21/17 02:00 82 04/21/17 00:00 98.6 83 28 138/90 100 04/21/17 00:00 83 04/20/17 22:00 75 04/20/17 20:00 90 04/20/17 20:00 97.6 90 30 172/101 97 I/O 04/20/17 04/20/17 04/20/17 04/21/17 04/21/17 04/21/17 07:00 15:00 23:00 07:00 15:00 23:00 Intake Total 1041 ml 1358 ml 1157 ml 657 ml 2128 ml Output Total 170 ml 137 ml 150 ml 120 ml 170 ml Balance 871 ml 1221 ml 1007 ml 537 ml 1958 ml Intake Oral 25 ml 120 ml 120 ml 25 ml IV Total 791 ml 549 ml 1037 ml 537 ml 2103 ml Packed Cells 250 ml 250 ml Platelets 534 ml Output Urine Total 150 ml 125 ml 150 ml 120 ml 150 ml Drainage Total 20 ml 12 ml 0 ml 20 ml # Bowel Movements 2 2 1 2 Result Diagram: 04/21/17 0740 04/21/17 1325 Other Results blood pressures going up. platelets staying in 50-60k range A/P Assessment and Plan Discussed with Dr. Cunningham will likely not see increase in platelets anytime soon. clinically doing better confusion likely due to lack of sleep and lack of nutrition conservative ongoing management Ayala Espinoza MD Apr 21, 2017 19:22
[2017-04-21] MEDS ORDERED: OLANZapine ODT 10 MG TAB PO ONE (21:00)
[2017-04-21] MEDS: FAT EMULSION 20% INJ 250 ML (@10 mls/hr) IV SCH (21:04)
[2017-04-21] MEDS: CLINIMIX 4.25/5 (Cust.Renal Periph) 1000 mL- </= 42 mls/hr IV SCH ×8 (21:04)
[2017-04-21] MEDS: PROCHLORPERAZINE INJ 10 MG/2 ML VIAL IV PUSH PRN (21:08)
[2017-04-21] MEDS: MELATONIN 5 MG TAB PO PRN (22:17)
[2017-04-21] MEDS: LORazepam 2 MG/ML VIAL IV PUSH PRN ×2 (22:18→23:05)
[2017-04-21] MEDS: NEOMYCIN/POLYMYXIN/BACITRACIN OINT 15 GM TUBE TOPICAL SCH (22:19)
[2017-04-21] MEDS ORDERED: DEXTROSE 50% IN WATER 50 ML SYRINGE ONE (22:32)
[2017-04-22] VITALS (15 sets, daily range): BP systolic 124–159; BP diastolic 81–100; PULSE 62–75; RESP 18–27; TEMP 97.5–98.3; O2SAT 93–100
[2017-04-22] MEDS: CHLORHEXIDINE GLUCONATE 2 % 1 PACK (2 CLOTHS) TOP SCH (04:00)
[2017-04-22] MEDS: INSULIN NovoLIN REGULAR SUPPLEMENTAL SCALE SQ SCH ×6 (04:00→20:00)
[2017-04-22] MEDS ORDERED: FUROSEMIDE 20 MG/2 ML VIAL IV PUSH ONE (04:30)
[2017-04-22] MEDS: HYDROmorphone HCL PF 1 MG/ML VIAL IV PUSH PRN ×3 (04:49→21:23)
[2017-04-22 05:46] LABS: HEMATOCRIT 30.5 % (35.0-46.0); MEAN CORPUSCULAR HEMOGLOBIN 28.5 PG (27.0-34.0); MEAN CORPUSCULAR HGB CONC 32.7 % (32.0-36.0); PLATELET COUNT 50 TH/MM3 (150-450); RED BLOOD COUNT 3.51 MIL/MM3 (4.00-5.30); RED CELL DISTRIBUTION WIDTH 23.9 % (11.6-17.2); WHITE BLOOD COUNT 2.7 TH/MM3 (4.0-11.0)
[2017-04-22 05:49] LABS: REVIEW FLAG FINAL
[2017-04-22 06:10] LABS: ANION GAP 20 MEQ/L (5-15); BICARBONATE 13.3 MEQ/L (21.0-32.0); BLOOD UREA NITROGEN 28 MG/DL (7-18); CHLORIDE 108 MEQ/L (98-107); GLOMERULAR FILTRATION RATE 10 ML/MIN (>89); MAGNESIUM 1.9 MG/DL (1.5-2.5); POTASSIUM 4.1 MEQ/L (3.5-5.1); SODIUM (NA) 141 MEQ/L (136-145)
[2017-04-22 06:20] LABS: FREE T4 0.95 NG/DL (0.76-1.46)
--- NOTE | 2017-04-22 07:22 | HHI.PR ---
Subjective Remarks awake and feeling better. no pain, just fatigued wants a walker and PT would like her private PT folk to be allowed to come in and help with general mobility and her knee less diarrhea Objective - Vital Signs Date Time Temp Pulse Resp B/P Pulse Ox O2 Delivery O2 Flow Rate FiO2 04/22/17 06:00 62 04/22/17 04:00 68 04/22/17 04:00 97.5 68 22 124/87 93 04/22/17 02:00 62 04/22/17 00:00 63 18 133/81 100 04/22/17 00:00 63 04/21/17 22:00 67 04/21/17 21:12 100 Nasal Cannula 3.00 04/21/17 20:00 97.5 75 30 162/97 100 04/21/17 20:00 75 04/21/17 18:30 62 04/21/17 18:00 61 04/21/17 17:30 65 04/21/17 17:00 66 04/21/17 16:30 66 04/21/17 16:30 66 19 148/93 100 04/21/17 16:00 63 04/21/17 16:00 98.1 63 35 147/95 90 04/21/17 15:30 69 28 159/99 100 04/21/17 15:30 69 04/21/17 15:00 74 27 167/103 83 04/21/17 15:00 74 04/21/17 14:38 80 04/21/17 14:38 80 32 154/92 81 04/21/17 14:31 75 04/21/17 14:01 94 04/21/17 14:00 94 32 160/101 80 04/21/17 14:00 83 04/21/17 13:38 72 04/21/17 13:30 96 04/21/17 13:30 96 34 188/97 98 04/21/17 13:00 74 04/21/17 13:00 74 24 157/99 100 04/21/17 12:56 73 04/21/17 12:51 75 04/21/17 12:25 64 04/21/17 12:00 98.3 65 23 155/93 100 04/21/17 12:00 65 04/21/17 11:00 68 25 156/87 99 04/21/17 11:00 68 04/21/17 10:00 64 20 100 04/21/17 10:00 64 04/21/17 09:00 72 04/21/17 09:00 72 22 157/94 100 04/21/17 08:00 71 04/21/17 08:00 98.1 71 22 148/94 97 I/O 04/21/17 04/21/17 04/21/17 04/22/17 04/22/17 04/22/17 07:00 15:00 23:00 07:00 15:00 23:00 Intake Total 657 ml 2128 ml 913 ml 581 ml Output Total 120 ml 220 ml 50 ml 75 ml Balance 537 ml 1908 ml 863 ml 506 ml Intake Oral 120 ml 25 ml 120 ml 0 ml IV Total 537 ml 2103 ml 793 ml 581 ml Output Urine Total 120 ml 150 ml 50 ml 75 ml Emesis 50 ml Drainage Total 0 ml 20 ml 0 ml 0 ml # Bowel Movements 1 2 0 0 Result Diagram: 04/22/17 0435 04/22/17 0435 Objective Remarks talking so fast cannot catch breath A & O x3 abdomen soft NABS drain has minimal material--time to remove may bag has small amount clear urine A/P Assessment and Plan 1) abdomen clinically improved. Need CT or sono without no contrast to see if collection even smaller--hope it randolph off and needs no intervention or consider second percutaneous draining. 2) platelets leveling in 50's -- Dr. Cunningham doesn't expect much more-- resolving DIC, splenomegaly and clumping all contributing to low amount 3) creatinine climbing--dialysis soon 4) mobility--needs walker and PT 5) have likely avoided transfer Ayala Espinoza MD Apr 22, 2017 07:22
[2017-04-22] MEDS: DRONEDARONE 400 MG TAB PO SCH ×2 (09:00→21:02)
[2017-04-22] MEDS: SODIUM CHLORIDE 0.9% FLUSH 10 ML FLUSH SCH ×2 (09:00→21:00)
[2017-04-22] MEDS: FLUCONAZOLE 200 MG PREMIX BAG 100 ML IV SCH ×2 (09:45→15:15)
[2017-04-22] MEDS: VANCOMYCIN 500 MG VIAL (FOR ORAL USE ONLY) PO SCH ×4 (09:45→21:02)
[2017-04-22] MEDS: NEOMYCIN/POLYMYXIN/BACITRACIN OINT 15 GM TUBE TOPICAL SCH ×2 (09:45→21:00)
[2017-04-22] MEDS: ASPIRIN EC 81 MG TABEC PO SCH (09:46)
[2017-04-22] MEDS: predniSONE 5 MG TAB PO SCH (09:46)
[2017-04-22] MEDS: DOCUSATE SODIUM 50 MG/SENNA 8.6 MG TAB PO SCH ×2 (09:46→21:02)
[2017-04-22] MEDS: FAMOTIDINE 20 MG/2 ML VIAL IV PUSH SCH ×2 (09:46→21:02)
[2017-04-22] MEDS: CHOLECALCIFEROL (VIT D3) 1000 UNIT TAB PO SCH (09:46)
[2017-04-22] MEDS ORDERED: LEVOTHYROXINE SODIUM 25 MCG TAB PO ONE (10:00)
--- NOTE | 2017-04-22 10:17 | HHI.CCPN ---
Subjective Remarks/Hospital Course Hospital Course: 27-year-old female who has a chronic renal condition that caused early renal failure in her teens now status post 5 transplants, has had issues of chronic immunosuppresion, including rapid development of pneumonia and ARDS from a cold ; joint sepsis and recent left knee debridement, CVA and need for chronic anticoagulation and dialysis twice weekly in [place], presents today complaining of abdominal pain, fevers, and diarrhea. . Earlier this month, she called [employer] with extremely heavily bleeding despite placement of mirena IUD. This was so profound she bled to a hgb< 5 and required ablation and transfusion. She did well the first two weeks and then developed the above symptoms two days ago. She was started on by mouth antibiotics by her [employer] physician but her symptoms progressed and she presents to ED today after dialysis. MRI obtained today show unremarkable uterus BUT suggests bilateral TOAs which is unexpected. She is followed by [employer] with desire to avoid surgical intervention given co morbidities. Subjective: 04/16: complaints of abdominal pain not well-controlled with current percocet. hypoglycemic overnight requiring d50w x 1. hemodynamics stabilized. 04/17: abdominal pain is stable. off vasopressors. thrombocytopenic and anemic this morning requiring 2 units prbc and platelets. no evidence of DIC based on high fibrinogen. otherwise clinically stable. again discussed care with director organizational, will plan for conservative management with iv abx and repeat imaging before pursuing surgical options, unless she clinically declines. 04/18: Overnight results patient's C. difficile positive. By mouth Flagyl discontinued. IV Flagyl initiated with by mouth vancomycin. ID following. Patient noted to be thrombocytopenic concern for possible surgical intervention secondary to bilateral adnexal masses. We'll transfuse 2 units of platelets this a.m., and insertion of Calvo catheter per MEDICAL DEVICE SALES REPRESENTATIVE recommendations. Ofirmev added for 24 hours for pain control. 04/19: Improvement in pain control overnight. Patient remains thrombocytopenic 2 units of platelets provided. Hit panel ordered Patient to IR this afternoon for percutaneous drainage of tubo-ovarian abscesses. Transfer orders placed for [facility] transplant [place] for management by Dr. Dakota Harris, 04/20: The patient underwent CT-guided percutaneous drainage of left tubo- ovarian abscess yesterday with drainage of approximately 60 cc , overnight perc drain in situ an additional 50 cc. Patient complains of mild pain in the pelvic region, Ofirmev every 6 hours added to medication regimen in conjunction with Dilaudid. Patient scheduled for pelvic ultrasound this a.m.. Patient delay in transfer to transplant facility secondary to hematological concerns by facility. Optimization in process,the patient received 2 units of packed red blood cells, and 2 units of platelets overnight, subsequent platelet count continues to be 44. Additionally given this a.m. 2 units of Rh+ platelets to be transfused, patient received Rhogam and and is covered approximately several days ago. This was discussed with Dr. Hylton, pathology secondary to the unavailability of Rh- products. D dimer and fibrinogen labs ordered, hematology oncology consulted appreciate recommendations. 04/21: The patient was noted to have sustained ventricular bigeminy, but normotensive at 12 noon . Stat 12-lead EKG revealed QT prolongation, the patient was noted to have hypophosphatemia which was being replaced . The patient was also noted to have ICU delirium last night with escalation this afternoon. Patient noted not to have had any sleep for the last 48 hours, Ativan 0.5 mg 1 dose given. Olanzapine scheduled for tonight in addition melatonin if needed, to maintain sleep hygiene. No transfer to [facility] at this time, patient continues to have persistent nausea and vomiting, in the setting of QT prolongation. Unable to maintain a PO diet, to include liquids, now also concern for aspiration and patient's confused state. Renal formulation, PPN initiated. Consideration for Dobbhoff tube placement and initiation of tube feeds, but patient agitated, with persistent nausea and vomiting at this time. 04/22: The patient slept for the majority of the evening with 1 dose of Ativan, and melatonin. This a.m. patient remains confused, less agitation, negative ammonia level. Plan for maintenance of sleep hygiene at night, with stimulation during the day. Symptoms of nausea decreased, the patient was able to tolerate a partial sandwich last evening, she continues on PPN at 42 cc/ hour. Levothyroxine dosing resumed, patient tolerating scheduled PO this a.m.. CT scan scheduled per MEDICAL DEVICE SALES REPRESENTATIVE for this a.m.. Objective Vital Signs Date Time Temp Pulse Resp B/P Pulse Ox O2 Delivery O2 Flow Rate FiO2 04/22/17 08:49 96 Nasal Cannula 3.00 04/22/17 08:00 75 04/22/17 08:00 98.0 22 150/87 04/19/17 09:19 21 Intake and Output 04/21/17 04/21/17 04/22/17 08:00 16:00 00:00 Intake Total 657 ml 2128 ml 913 ml Output Total 120 ml 220 ml 50 ml Balance 537 ml 1908 ml 863 ml Result Diagram: 04/22/17 0435 04/22/17 0435 Other Results Microbiology Date/Time Procedure Status Source Growth 04/19/17 11:35 Gram Stain - Final Complete Fluid Other 04/19/17 11:35 Body Fluid Culture - Final Complete Enterobacter Cloacae Objective Remarks GENERAL: young chronically ill-appearing female, sleeping this a.m., easily arousable SKIN: Warm and dry. Anasarca HEAD: Normocephalic. EYES: No scleral icterus. No injection or drainage. NECK: trachea midline. No JVD. CARDIOVASCULAR: Regular rate and rhythm. . RESPIRATORY: equal chest rise. on room air. Nasal cannula O2 at 2 L/m GASTROINTESTINAL: Abdomen soft, moderately tender to palpation over pelvis. only mildly diffusely tender in the upper quadrants. no guarding or rebound. nondistended. Left percutaneous pelvic drain noted, no erythema, dressing C/D/ I minimal serosanguineous fluid noted MUSCULOSKELETAL: No cyanosis, peripheral edema noted 1+, left arm 2+ peripheral edema. EXTREMITIES: No clubbing cyanosis. Left arm 1+ edema elevated. Left upper arm AV fistula noted Neuro: Easily arousable, oriented self only. RASS 0. no focal deficits. Procedures 04/19 percutaneous tubo-ovarian abscesses via IR 04/20 pelvic ultrasound 04/20 CT abdomen and pelvis A/P Assessment and Plan Abdominal pain- moderate - secondary to tubo-ovarian abscesses - oxycodone 10mg po q4h prn - dilaudid 0.5mg iv q3h prn Sepsis Tubo-ovarian Abscesses Enterobacter bacteremia C. difficile - f/u blood cultures- growing enterobacter - continue Zosyn, Flagyl, vancomycin - Infectious disease following Dr. Cannon - [employer] following Dr. Dee -04/20 CT abdomen and pelvis bilobed right adnexal mass, diverticulosis, etc. left adnexa, small bilateral pleural effusions, mild abdominal ascites, with slight anasarca - 04/19 S/P percutaneous drainage left tubo-ovarian abscess- Enterobacter cloacae - 04/22-repeat CT Rosie wound infection -- unclear if colonization or infection, but immunocompromised and clinically toxic appearing -- fluconazole, renally adjusted iv. -- ID consult. Hypoglycemia- resolved. -- glucose checks q4h -- PPN 42cc/hr End-stage renal disease - Hemodialysis per nephrology- Tuesday and Tuesday - consult nephrology- Dr. Pichardo following Hypothyroidism -- 04/21 TSH level slight elevation 4.420, Free T4- WNL -- Levothyroxine 25 mcgs/day PO Anemia secondary to critical illness and ESRD -- received 1 unit prbc 04/16 -- 2 units prbc 04/17, 2 units PRBC 04/19 -- goal hgb > 7 -- Hemoglobin stable 10 Thrombocytopenia -- likely secondary to sepsis. 04/17 1 u Plts -- 2 units platelets transfused today given her anemia and critical illness. --04/19 4 units Platelets (Rh -), 04/20 2 units (Rh +) RhoGAM previously given. Discussion with Dr. Hylton pathology patient does not plan on in the near future. Patient remains thrombocytopenic. -- goal plt > 50k. --Hematology/oncology following ,SQ heparin reinstituted INR 1.7 per recommendations discussed with Dr. Peralta -04/19- HIT panel negative Hypertension - Clonidine when necessary Mild protein calorie malnutrition Persistent nausea and vomiting -Initiate PPN at 42 cc/hr (renal formulation) -Continue to encourage PO intake as tolerated -Bowel regimen-Colace, senna, MiraLAX, when necessary due to state suppository -QT prolongation resolved with phosphate repletion. Resume Zofran PRN ICU Delirium -Maintain sleep hygiene -Melatonin 5 mg @ HS PRN for insomnia MSK: - Left arm peripheral edema 1+, keep elevated - 04/19 venous Doppler ultrasound bilateral upper extremities, negative for DVT -Left upper arm AV fistula -Healing surgical wound left knee-line Neosporin ointment when necessary -Generalized anasarca GERD Nausea and vomiting - Pantoprazole -Zofran DVT GI prophylaxis - Teds SCDs , heparin 5000 units subcutaneous twice a day - Pantoprazole Dispo: Discussed with Dr. Peralta,Heparin reinstituted low likelihood of bleeding .Provided medical status update to parents encourage PO intake. All questions answered Level 3 Physician Aimee Jennings MD Apr 22, 2017 10:17
--- NOTE | 2017-04-22 11:01 | HHI.IDPN ---
Subjective Subjective Remarks Patient is a 27-year-old female, who has a complicated medical history, recently underwent procedure for severe menstrual bleeding. She underwent D&C and ablation around March 24. 2 days prior to admission she started having significant abdominal pain, and some nausea. She also has had some fever and chills. She had episodes of diarrhea, but that has resolved. She also noted some mucousy bloody vaginal drainage. She presented to the hospital, and imaging studies showed significant inflammatory changes in the pelvis and possibly tubo-ovarian abscess. She has the transplanted kidney with hydronephrosis. Since admission she has been febrile up to 103. Her blood pressure is okay. She still has significant abdominal pain. The pain is in the lower quadrant and it radiates to her back. She denies any respiratory complaint. Patient has renal failure, and is anuric. 2 blood cultures done on admission are now reported as growing Enterobacter. Patient also has had problem with her left knee. She initially had fracture of her left patella, and has had arthroscopic surgery. There was a culture done in May that had Rosie albicans. Patient apparently had been given Diflucan previously. The last time she had any surgery on that left knee here in this area was in August, and this was done at [facility]. Culture it looks like from that surgery did not grow anything. Patient was subsequently referred to a doctor in [place], and she underwent more extensive surgery to her left knee. Culture reportedly grew yeast, and the patient was given Cresemba by the infectious disease physician who saw her at [facility]. She has a follow-up appointment with that infectious disease doctor around end of April. Notes reviewed D/W RN Very tired Father at bedside Patient for HD today Repeat CT 04/20 with decreased in size of fluid collection on L from 9.4 x 5.8 cm to 7 x 3 cm No change in R adnexal mass Stool recorded less WBC up to 2.7 Platelets around 50K Temps ok BP ok One BC with Enterobacter Fluid C/S with hEnterobacter Antibiotics Cefepime Diflucan Vanco po Lines Port Past Medical History Hypothyroidism Hypertension GERD Endstage renal disease, on HD - diagnosis made when she was about 3 years old CVA in 2012 History of chronic steroid therapy. 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 Vital Signs Date Time Temp Pulse Resp B/P Pulse Ox O2 Delivery O2 Flow Rate FiO2 04/22/17 10:00 75 04/22/17 08:49 96 Nasal Cannula 3.00 04/22/17 08:00 75 04/22/17 08:00 98.0 74 22 150/87 93 04/22/17 06:00 62 04/22/17 04:00 68 04/22/17 04:00 97.5 68 22 124/87 93 04/22/17 02:00 62 04/22/17 00:00 63 18 133/81 100 04/22/17 00:00 63 04/21/17 22:00 67 04/21/17 21:12 100 Nasal Cannula 3.00 04/21/17 20:00 97.5 75 30 162/97 100 04/21/17 20:00 75 04/21/17 18:30 62 04/21/17 18:00 61 04/21/17 17:30 65 04/21/17 17:00 66 04/21/17 16:30 66 04/21/17 16:30 66 19 148/93 100 04/21/17 16:00 63 04/21/17 16:00 98.1 63 35 147/95 90 04/21/17 15:30 69 28 159/99 100 04/21/17 15:30 69 04/21/17 15:00 74 27 167/103 83 04/21/17 15:00 74 04/21/17 14:38 80 04/21/17 14:38 80 32 154/92 81 04/21/17 14:31 75 04/21/17 14:01 94 04/21/17 14:00 94 32 160/101 80 04/21/17 14:00 83 04/21/17 13:38 72 04/21/17 13:30 96 04/21/17 13:30 96 34 188/97 98 04/21/17 13:00 74 04/21/17 13:00 74 24 157/99 100 04/21/17 12:56 73 04/21/17 12:51 75 04/21/17 12:25 64 04/21/17 12:00 98.3 65 23 155/93 100 04/21/17 12:00 65 04/21/17 11:00 68 25 156/87 99 04/21/17 11:00 68 04/21/17 04/21/17 04/22/17 15:00 23:00 07:00 Intake Total 2128 ml 913 ml 581 ml Output Total 220 ml 50 ml 75 ml Balance 1908 ml 863 ml 506 ml Intake Oral 25 ml 120 ml 0 ml IV Total 2103 ml 793 ml 581 ml Output Urine Total 150 ml 50 ml 75 ml Emesis 50 ml Drainage Total 20 ml 0 ml 0 ml # Bowel Movements 2 0 0 . Laboratory Tests Test 04/20/17 04/21/17 04/22/17 13:05 07:40 04:35 Platelet Count 60 TH/MM3 58 TH/MM3 50 TH/MM3 Blood Smear Pathologist Review White Blood Count 2.3 TH/MM3 2.7 TH/MM3 Red Blood Count 3.77 MIL/MM3 3.51 MIL/MM3 Hemoglobin 10.7 GM/DL 10.0 GM/DL Hematocrit 32.9 % 30.5 % Mean Corpuscular Volume 87.2 FL 87.0 FL Mean Corpuscular Hemoglobin 28.3 PG 28.5 PG Mean Corpuscular Hemoglobin 32.5 % 32.7 % Concent Red Cell Distribution Width 23.0 % 23.9 % Mean Platelet Volume 9.1 FL 9.1 FL Laboratory Tests Test 04/21/17 04/21/17 04/21/17 04/22/17 07:40 13:25 22:00 04:35 Sodium Level 139 MEQ/L 141 MEQ/L 141 MEQ/L Potassium Level 3.7 MEQ/L 3.8 MEQ/L 4.1 MEQ/L Chloride Level 106 MEQ/L 108 MEQ/L 108 MEQ/L Carbon Dioxide Level 15.4 MEQ/L 15.8 MEQ/L 13.3 MEQ/L Anion Gap 18 MEQ/L 17 MEQ/L 20 MEQ/L Blood Urea Nitrogen 21 MG/DL 23 MG/DL 28 MG/DL Creatinine 5.10 MG/DL 5.23 MG/DL 5.33 MG/DL Estimat Glomerular Filtration 10 ML/MIN 10 ML/MIN 10 ML/MIN Rate Random Glucose 108 MG/DL 115 MG/DL 96 MG/DL Uric Acid 5.5 MG/DL Calcium Level 9.0 MG/DL 8.4 MG/DL 8.5 MG/DL Phosphorus Level 1.9 MG/DL 1.9 MG/DL 3.6 MG/DL Magnesium Level 1.8 MG/DL 1.7 MG/DL 1.9 MG/DL Lactate Dehydrogenase 212 U/L Total Bilirubin 1.9 MG/DL Direct Bilirubin 1.3 MG/DL Indirect Bilirubin 0.6 MG/DL Aspartate Amino Transf 9 U/L (AST/SGOT) Alanine Aminotransferase 6 U/L (ALT/SGPT) Alkaline Phosphatase 256 U/L Ammonia LESS THAN 10 MCMOL/L Troponin I LESS THAN 0.02 LESS THAN 0.02 LESS THAN 0.02 NG/ML NG/ML NG/ML Total Protein 4.7 GM/DL Albumin 2.1 GM/DL Free Thyroxine 0.95 NG/DL Thyroid Stimulating Hormone 4.420 uIU/ML 3rd Gen Microbiology Date/Time Procedure Status Source Growth 04/19/17 11:35 Gram Stain - Final Complete Fluid Other 04/19/17 11:35 Body Fluid Culture - Final Complete Enterobacter Cloacae Imaging ons Abdomen/Pelvis CT 04/20/17 0000 Signed Impressions: Service Date/Time: Thursday, April 20, 2017 18:16 - CONCLUSION: 1. The complex fluid collection left adnexa has significantly decreased in size. 2. Stable findings as above. Yusuf Jacob MD Abscess Drainage CT 04/19/17 0957 Signed Impressions: Service Date/Time: Wednesday, April 19, 2017 11:12 - CONCLUSION: Uncomplicated CT guided drainage. Galdino Heredia MD Abdomen/Pelvis CT 04/18/17 0000 Signed Impressions: Service Date/Time: Tuesday, April 18, 2017 16:08 - CONCLUSION: 1. Stable bilateral adnexal complex cystic masses/collections. 2. Hepatosplenomegaly. 3. Tiny bilateral pleural effusions with adjacent bilbasilar atelectasis. 4. Tiny pericardial effusion. 5. Cardiomegaly. Mikael León MD Pelvis Ultrasound 04/17/17 0000 Signed Impressions: Service Date/Time: Monday, April 17, 2017 11:32 - CONCLUSION: There are complex adnexal masses bilaterally and a normal left ovary is not visualized, however the right ovary is visualized and the above-mentioned adnexal mass appears to be separate from it. Possibility of pyosalpinx should be entertained although the left ovary is not seen and therefore tubo-ovarian abscess in the left ovary is not excluded. Tin Spencer MD Chest X-Ray 04/16/17 0000 Signed Impressions: Service Date/Time: Sunday, April 16, 2017 03:44 - CONCLUSION: No acute disease Chris Myrick MD Pelvis MRI 04/15/17 0000 Signed Impressions: Service Date/Time: Saturday, April 15, 2017 18:39 - CONCLUSION: 1. The uterus is normal in appearance without obvious endometrial thickening or mass. 2. Normal appearing ovaries are not visualized. In the adnexal region bilaterally dilated tortuous tubular structures are seen with a cystic complex appearance concerning for bilateral hydrosalpinx and tubo-ovarian abscess formation given the extensive inflammatory changes should be considered. 3. Abnormal circumferential bowel wall thickening involving the rectum. 4. Right lower quadrant transplant kidney with hydronephrosis. Moe Aragon MD Physical Exam GENERAL: awakens easily, very weak, not in distress SKIN: Warm and dry. No generalized rash, no ecchymoses and no evidence of embolic lesions. HEAD: Atraumatic. Normocephalic. No temporal wasting, or tenderness. EYES: Bono conjunctiva. No petechia or hemorrhage. Pupils equal, round and reactive to light. No scleral icterus. No injection or drainage. EARS, NOSE AND THROAT: Nose without bleeding or purulent nasal discharge. No sinus tenderness. Mucous membranes pink and moist. No oral lesions noted. NECK: Trachea midline. Supple and not tender, no meningeal signs CARDIOVASCULAR: Regular rate and rhythm. No murmurs, rubs or gallops heard RESPIRATORY: Clear to auscultation. No rales, wheezing or rhonchi. Decreased at bases. Port in R upper chest, no evidence of infection ABDOMEN: Distended, hypoactive bowel sounds has scars compatible with multiple abdominal surgeries, very min abdominal tenderness. Drain in place not much in bag, old blood EXTREMITIES: No clubbing, cyanosis. No pedal edema. LLE larger compared to the RLE. Her L knee has effusion, healed incisions with some scabs present, NEUROLOGICAL: Awakens easily, very weak PSYCHIATRIC: cooperative. LINE: Port with no evidence of infection Assessment & Plan Remarks IMPRESSION Enterobacter sepsis, ?source - has possible L TOA on imaging studies; has drain in place now, 04/19 - recent D and C, and ablation for heavy bleeding; not sexually active - has some rectal wall thickening - has port ESRD, previous transplant x 5, last one done 2014 - on HD had AVG in her L upper arm Infection L knee, with yeast , OR end of January, has been on Cresemba, clinically improving C diff colitis Pancytopenia - leukopenia, ?due to meds (Zosyn, Flagyl), ?due to infection, better RECOMMENDATION Continue Cefepime, will cover the Enterobacter and other GNR Continue Diflucan for her knee infection Continue po VAnco for C diff Monitor progress Follow CBC Repeat CT showed decrease in size, and cath seems to be in right place over th fluid collection D/W RN Dr Pearson available if needed this weekend Aury Cannon MD Apr 22, 2017 11:01
[2017-04-22] MEDS: CEFEPIME INJ 2,000 MG in SODIUM CHLORIDE 0.9% INJ 100 ML IV SCH ×2 (13:00→15:14)
--- NOTE | 2017-04-22 14:26 | PD.ONC.PN ---
Subjective Subjective Remarks Afebrile overnight. Patient resting in bed receiving dialysis. CT ab/pelvis ordered this AM by ARCHITECTURE PROFESSOR. PT also ordered and is pending. Objective Data Date Time Temp Pulse Resp B/P Pulse Ox O2 Delivery O2 Flow Rate FiO2 04/22/17 12:02 97.8 63 22 156/100 93 04/22/17 12:01 63 04/22/17 10:00 75 04/22/17 08:49 96 Nasal Cannula 3.00 04/22/17 08:00 75 04/22/17 08:00 98.0 74 22 150/87 93 04/22/17 06:00 62 04/22/17 04:00 68 04/22/17 04:00 97.5 68 22 124/87 93 04/22/17 02:00 62 04/22/17 00:00 63 18 133/81 100 04/22/17 00:00 63 04/21/17 22:00 67 04/21/17 21:12 100 Nasal Cannula 3.00 04/21/17 20:00 97.5 75 30 162/97 100 04/21/17 20:00 75 04/21/17 18:30 62 04/21/17 18:00 61 04/21/17 17:30 65 04/21/17 17:00 66 04/21/17 16:30 66 04/21/17 16:30 66 19 148/93 100 04/21/17 16:00 63 04/21/17 16:00 98.1 63 35 147/95 90 04/21/17 15:30 69 28 159/99 100 04/21/17 15:30 69 04/21/17 15:00 74 27 167/103 83 04/21/17 15:00 74 04/21/17 14:38 80 04/21/17 14:38 80 32 154/92 81 04/21/17 14:31 75 04/22/17 04/22/17 04/22/17 07:00 15:00 23:00 Intake Total 581 ml Output Total 75 ml Balance 506 ml Result Diagram: 04/22/17 0435 04/22/17 0435 Laboratory Results Laboratory Tests Test 04/21/17 04/22/17 22:00 04:35 Troponin I LESS THAN 0.02 LESS THAN 0.02 NG/ML NG/ML White Blood Count 2.7 TH/MM3 Red Blood Count 3.51 MIL/MM3 Hemoglobin 10.0 GM/DL Hematocrit 30.5 % Mean Corpuscular Volume 87.0 FL Mean Corpuscular Hemoglobin 28.5 PG Mean Corpuscular Hemoglobin 32.7 % Concent Red Cell Distribution Width 23.9 % Platelet Count 50 TH/MM3 Mean Platelet Volume 9.1 FL Sodium Level 141 MEQ/L Potassium Level 4.1 MEQ/L Chloride Level 108 MEQ/L Carbon Dioxide Level 13.3 MEQ/L Anion Gap 20 MEQ/L Blood Urea Nitrogen 28 MG/DL Creatinine 5.33 MG/DL Estimat Glomerular Filtration 10 ML/MIN Rate Random Glucose 96 MG/DL Calcium Level 8.5 MG/DL Phosphorus Level 3.6 MG/DL Magnesium Level 1.9 MG/DL Free Thyroxine 0.95 NG/DL Thyroid Stimulating Hormone 4.420 uIU/ML 3rd Gen Administered Medications Medications (Trade) Dose Ordered Sig/Mega Route PRN Reason Start Time Stop Time Status Last Admin Dose Admin Aspirin (Ecotrin Ec) 81 mg DAILY PO 04/16/17 09:00 04/22/17 09:46 Dronedarone (Multaq) 400 mg BID PO 04/15/17 21:00 04/22/17 09:00 Cholecalciferol (Vitamin D3) 2,000 units DAILY PO 04/16/17 09:00 04/22/17 09:46 Sodium Chloride (NS Flush) 2 ml UNSCH PRN .XX FLUSH AFTER USING IV ACCESS 04/15/17 19:00 04/18/17 08:20 Sodium Chloride (NS Flush) 2 ml BID .XX 04/15/17 21:00 04/22/17 09:00 Acetaminophen (Tylenol) 650 mg Q6H PRN PO PAIN 1-10 AND/OR FEVER >101F 04/15/17 19:00 04/17/17 23:57 Ondansetron HCl (Zofran Inj) 4 mg Q6H PRN IV NAUSEA OR VOMITING 04/15/17 19:00 Hold 04/21/17 05:27 Chlorhexidine Gluconate (Chlorhexidine 2% Cloth) Taper DAILY@04 TOP 04/16/17 04:00 04/12/18 03:59 04/21/17 03:09 Senna/Docusate Sodium 1 tab 1 tab BID PO 04/15/17 21:00 04/22/17 09:46 Fluconazole/ Sodium Chloride (Diflucan 200 Mg Premix Bag) 100 ml @ 100 mls/hr Q24H IV 04/16/17 11:00 04/22/17 09:45 Oxycodone HCl (Roxicodone) 10 mg Q4H PRN PO pain 1-6 04/16/17 07:45 04/18/17 10:06 Hydromorphone HCl (Dilaudid Pf Inj) 0.5 mg Q3H PRN IV PUSH pain 7-10 or not taking po 04/16/17 07:45 04/22/17 04:49 Dextrose (D50w (Vial) Inj) 25 ml UNSCH PRN IV PUSH HYPOGLYCEMIA-SEE COMMENTS 04/16/17 07:45 04/21/17 01:09 Famotidine 10 mg 10 mg Q12HR IV PUSH 04/16/17 21:00 04/22/17 09:46 Sodium Chloride (NS 1000 ml Inj) 1,000 ml @ 0 mls/hr Q0M PRN IV For Prime & Rinse Back 04/17/17 11:10 04/18/17 19:27 Epoetin Torsten (Epogen Inj) 10,000 units UNSCH PRN IV WITH DIALYSIS 04/17/17 11:15 04/18/17 19:27 Prochlorperazine Edisylate (Compazine Inj) 5 mg Q6H PRN IV PUSH nausea 04/17/17 20:15 04/21/17 21:08 Vancomycin HCl 500 mg 500 mg QID PO 04/20/17 13:00 04/22/17 09:45 Cefepime HCl/ Sodium Chloride (Maxipime Inj/NS Inj) 100 ml @ 200 mls/hr Q24H IV 04/20/17 13:00 04/21/17 13:34 Lorazepam (Ativan Inj) 0.5 mg Q6H PRN IV PUSH NAUSEA OR VOMITING 04/21/17 01:00 04/21/17 23:05 Prednisone (Deltasone) 7.5 mg DAILY PO 04/20/17 19:30 04/22/17 09:46 Melatonin 5 mg 5 mg HS PRN PO INSOMNIA 04/21/17 14:30 04/21/17 22:17 Sodium Chloride 5.5 meq/Sodium Acetate 29.5 meq/ Potassium Chloride 20 meq/ Magnesium Chloride 5 meq/ Calcium Chloride 4.5 meq/ Multivitamins 10 ml/Folic Acid 1 mg/Amino Acids/ Dextrose 1,042.1719 ml @ 42 mls/hr Q24H IV 04/21/17 20:00 04/21/17 21:04 Fat Emulsion Intravenous (Liposyn Iii 20% Inj) 250 ml @ 10 mls/hr Q24H IV 04/21/17 20:00 04/21/17 21:04 Neomycin/ Polymyxin/ Bacitracin (Neosporin Oint) 1 applic Q12HR TOPICAL 04/21/17 21:00 04/22/17 09:45 Lorazepam (Ativan Inj) 0.5 mg HS PRN IV PUSH ANXIETY 04/21/17 20:15 04/21/17 22:18 Objective Remarks GENERAL: Young woman, lying in bed receiving dialysis. SKIN: Warm and dry. HEAD: Normocephalic. EYES: No injection or drainage. NECK: Supple, trachea midline. CARDIOVASCULAR: Regular rate and rhythm RESPIRATORY: Breath sounds equal bilaterally. No accessory muscle use. GASTROINTESTINAL: Abdomen distended, mildly tender. EXTREMITIES: No cyanosis. edema, bilateral lower extremities. NEURO: sleeping on approach, but easily awakened Assessment/Plan Problem List: (1) Pancytopenia Status: Acute Plan: --due to peripheral destruction from DIC, sepsis, hepatosplenomegaly ( causing sequestration, destruction), multiple antibiotics. --recommend only transfusing platelets if bleeding. --on epogen with dialysis (2) Renal transplant disorder Status: Acute Plan: --nephrology following --on dialysis twice weekly history of medullary cystic kidney disease and developed end-stage renal disease at the age of 3. She has had multiple living donor kidney transplants. The first was in 1993 at [facility] from her father. She had a second donor, her mother. The first transplants lasted 8 and 6 years respectively. She has had peritoneal dialysis in the interim and has had subsequent donors from friends. After losing a graft in 2011 she could not resume peritoneal dialysis due to adhesions. 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 She has had bilateral allograft nephrectomies. She has been on anticoagulant therapy with Coumadin. Her last transplant was in 2004. The graft functioned for 1-1/2 years and she returned to hemodialysis. She does have residual function of the graft. She voids 1 to 1.5 liters per day. She is on hemodialysis twice a week. (3) Bilateral tubo-ovarian mass Status: Acute Plan: --ARCHITECTURE PROFESSOR following and managing. CT abdomen showed hepatosplenomegaly, bilateral adnexal complex cystic masses and collection. --on multiple abx --had abscess drainage in IR on 7.25 (4) S/P endometrial ablation Status: Acute Plan: --developed menorrhagia while on Eliquis. --had the procedure of endometrial ablation and D&C. (5) Sepsis Status: Acute Plan: --ID following, on multiple abx Assessment 27-year-old female admitted on 04/15/2017 with fever, malaise, bloody discharge , diarrhea, pelvic cramping.. --was on anticoagulant therapy with Eliquis for h/o CVA --has been transferred to [facility] but they are waiting for platelet count to improve. --h/o Left patella arthroscopic surgery. Plan 1. monitor CBC, coags 2. dialysis today 3. CT ab/pelvis per ARCHITECTURE PROFESSOR 4. recommend transfusion of platelets only if bleeding. Attending Statement The exam, history, and the medical decision-making described in the above note were completed with the assistance of the mid-level provider. I reviewed and agree with the findings presented. I attest that I had a [id number] encounter with the patient on the same day, and personally performed and documented my assessment and findings in the medical record. Seen and examined this AM with reclamation worker. Confused, knows self and . No signs of bleeding. L knee looks better. Drain appear dry, no more bleeding from there. Discussed DVT prophylaxis. Supportive transfusion, monitor platelet and DIC. Marita Duran Apr 22, 2017 14:26 Dede Peralta MD Apr 22, 2017 14:33
[2017-04-22] MEDS: EPOETIN ALFA 10,000 UNITS/ML VIAL IV PRN (14:30)
[2017-04-22] MEDS: SODIUM CHLOR 0.9% 1000 ML INJ 1,000 ML IV PRN (14:30)
[2017-04-22] MEDS: GELATIN 12 MM/7 MM FOAM TOP PRN (14:30)
--- NOTE | 2017-04-22 17:52 | RADRPT ---
EXAM DATE/TIME: 04/22/2017 17:30 [place] COMPARISON: CT ABDOMEN & PELVIS W/O CONTRAST, April 18, 2017, 16:08. CT ABDOMEN & PELVIS W/O CONTRAST, April 20 017, 18:16. INDICATIONS : Abscess. Endometriosis. ORAL CONTRAST: No oral contrast ingested. RADIATION DOSE: 8.63 CTDIvol (mGy) MEDICAL HISTORY : Hypertension. Renal failure, chronic. Dialysis SURGICAL HISTORY : Kidney transplant x 5. ENCOUNTER: Subsequent ACUITY: 4 - 6 days PAIN SCALE: 4/10 LOCATION: pelvis TECHNIQUE: Volumetric scanning of the abdomen and pelvis was performed. Using automated exposure control and ad justment of the mA and/or kV according to patient size, radiation dose was kept as low as reasonably achievable to obtain optimal diagnostic quality images. DICOM format image data is available electro nically for review and comparison. FINDINGS: Bilateral pleural effusions are present with bibasilar consolidation. There is a percutaneous tu be in the left side of the pelvis the fluid collection mixed density adjacent to it has not significa ntly changed with gas bubbles. The right complex adnexal mass probably a dilated fallopian tube fille d with pus is again seen a no change measures 10.9 cm in size. Splenomegaly has not changed there is haziness of the mesenteric fat plane part of which appear lobular and loculated in the right lower qu adrant and not significantly changed. Slight ascites is seen. The rest of the examination has not sig nificantly changed. CONCLUSION: The fluid collection adjacent to the left percutaneous drain has not changed since 2 days ago and mul tiseptated pyosalpinx on the right side has also not significantly changed. The rest of the examinati on has not changed. Tin Spencer MD on April 22, 2017 at 17:44 Board Certified Radiologist. This report was verified electronically.
[2017-04-22] MEDS: HEPARIN SODIUM - SQ 10,000 UNITS/ML VIAL SQ SCH (21:01)
[2017-04-22] MEDS: FAT EMULSION 20% INJ 250 ML (@10 mls/hr) IV SCH (21:02)
[2017-04-22] MEDS: CLINIMIX 4.25/5 (Cust.Renal Periph) 1000 mL- </= 42 mls/hr IV SCH ×8 (21:03)
--- NOTE | 2017-04-22 21:50 | HHI.NPPN ---
Subjective General Problems: Anemia, Hypertension Renal Failure: End Stage Renal Disease History of Present Illness 27-year-old female with past medical history of hypertension, hypothyroidism, gastroesophageal reflux disease, history of chronic anemia, end-stage renal disease on hemodialysis two times per week, history of multiple renal transplants in the past who was admitted because of heavy vaginal bleeding after she had an IUD placed. I was called to see the patient for the management of dialysis. Additional Remarks Patient is alert, no SOB, abd. pain is better. Review of Systems General Constitutional: Fatigue Cardiovascular Cardiac: MUIR Gastrointestinal Gastrointestinal: Abdominal Pain, Nausea & Vomiting Objective Data Data 04/21/17 04/22/17 19:00 07:00 Intake Total 2128 ml 1494 ml Output Total 220 ml 125 ml Balance 1908 ml 1369 ml Intake Oral 25 ml 120 ml IV Total 2103 ml 1374 ml Output Urine Total 150 ml 125 ml Emesis 50 ml Drainage Total 20 ml 0 ml # Bowel Movements 2 0 Vital Signs Date Time Temp Pulse Resp B/P Pulse Ox O2 Delivery O2 Flow Rate FiO2 04/22/17 20:49 99 Nasal Cannula 3.00 04/22/17 18:00 63 04/22/17 16:00 63 04/22/17 16:00 98.1 63 22 159/97 93 04/22/17 14:00 63 04/22/17 12:02 97.8 63 22 156/100 93 04/22/17 12:01 63 04/22/17 10:00 75 04/22/17 08:49 96 Nasal Cannula 3.00 04/22/17 08:00 75 04/22/17 08:00 98.0 74 22 150/87 93 04/22/17 06:00 62 04/22/17 04:00 68 04/22/17 04:00 97.5 68 22 124/87 93 04/22/17 02:00 62 04/22/17 00:00 63 18 133/81 100 04/22/17 00:00 63 04/21/17 22:00 67 -: 04/22/17 0435 04/22/17 0435 Physical Exam General Appearance: No Acute Distress, Comfortable Eyes Eye Exam: Pupils Equal Throat Throat Exam: Oral Mucosa [place] & Moist Pulmonary Resp Exam: Breath Sounds Equal, No Distress, Decreased Bases Cardiology CV Exam: Regular, Normal Sinus Rhythm Gastrointestinal/Abdomen GI Exam: Soft, Bowel Sounds Present (mild lower abd. tenderness.), Non- Distended Extremeties Extremities Exam: Trace Edema Neurologic Neuro Exam: Alert, Awake Psychiatric Psych Exam: Appropriate Responses Assessment/Plan Assessment Summary: Anemia of CKD, Hypertension, End Stage Renal Disease, Transplant Kidney Status Problem List: (1) Hypertension (2) Hypothyroidism (3) History of CVA (cerebrovascular accident) (4) Renal transplant failure and rejection (5) End stage chronic kidney disease (6) Anemia (7) Sepsis Plan Post transfusion Hgb. is stable. On Cefepime, Fluconazole and Oral Vanco. ID is following. CT abd. noted. Now has drain inserted. Platelets stable, HIT antibodies negative. Patient has history of renal transplant, on prednisone 7.5 mg daily, got the injection of Nulojix on 04/20. HD done today and 4.5 liters removed. Started on TPN. Problem Qualifiers (1) Hypertension: Qualified Code: I10 - Essential hypertension Veronica Pichardo MD Apr 22, 2017 21:50
[2017-04-22] MEDS: MELATONIN 5 MG TAB PO PRN (21:53)
[2017-04-22] MEDS: LORazepam 2 MG/ML VIAL IV PUSH PRN (21:57)
[2017-04-23] VITALS (13 sets, daily range): BP systolic 144–167; BP diastolic 64–100; PULSE 64–91; RESP 20–27; TEMP 96.8–99.1; O2SAT 95–100
[2017-04-23] MEDS: CHLORHEXIDINE GLUCONATE 2 % 1 PACK (2 CLOTHS) TOP SCH (00:21)
[2017-04-23] MEDS: HYDROmorphone HCL PF 1 MG/ML VIAL IV PUSH PRN ×5 (01:16→20:29)
[2017-04-23] MEDS: INSULIN NovoLIN REGULAR SUPPLEMENTAL SCALE SQ SCH ×5 (04:00→20:00)
[2017-04-23 05:54] LABS: BICARBONATE 19.3 MEQ/L (21.0-32.0); HEMATOCRIT 25.5 % (35.0-46.0); MAGNESIUM 1.9 MG/DL (1.5-2.5); MEAN CELL VOLUME 86.1 FL (80.0-100.0); MEAN CORPUSCULAR HEMOGLOBIN 28.9 PG (27.0-34.0); MEAN CORPUSCULAR HGB CONC 33.6 % (32.0-36.0); PLATELET COUNT 39 TH/MM3 (150-450); POTASSIUM 3.7 MEQ/L (3.5-5.1); RED BLOOD COUNT 2.96 MIL/MM3 (4.00-5.30); RED CELL DISTRIBUTION WIDTH 23.4 % (11.6-17.2)
[2017-04-23 06:03] LABS: REVIEW FLAG FINAL
[2017-04-23] MEDS: LEVOTHYROXINE SODIUM 25 MCG TAB PO SCH (06:20)
[2017-04-23] MEDS: NEOMYCIN/POLYMYXIN/BACITRACIN OINT 15 GM TUBE TOPICAL SCH ×2 (08:48→20:32)
[2017-04-23] MEDS: VANCOMYCIN 500 MG VIAL (FOR ORAL USE ONLY) PO SCH ×4 (08:49→20:28)
[2017-04-23] MEDS: HEPARIN SODIUM - SQ 10,000 UNITS/ML VIAL SQ SCH ×2 (08:49→20:28)
[2017-04-23] MEDS: DOCUSATE SODIUM 50 MG/SENNA 8.6 MG TAB PO SCH ×2 (08:50→20:32)
[2017-04-23] MEDS: predniSONE 5 MG TAB PO SCH (08:50)
[2017-04-23] MEDS: ASPIRIN EC 81 MG TABEC PO SCH (08:51)
[2017-04-23] MEDS: FAMOTIDINE 20 MG/2 ML VIAL IV PUSH SCH ×2 (08:51→20:30)
[2017-04-23] MEDS: DRONEDARONE 400 MG TAB PO SCH ×2 (08:51→20:32)
[2017-04-23] MEDS: SODIUM CHLORIDE 0.9% FLUSH 10 ML FLUSH SCH ×2 (08:52→20:30)
[2017-04-23] MEDS: CHOLECALCIFEROL (VIT D3) 1000 UNIT TAB PO SCH (08:52)
--- NOTE | 2017-04-23 12:17 | HHI.NPPN ---
Subjective General Problems: Anemia, Hypertension Renal Failure: End Stage Renal Disease History of Present Illness 27-year-old female with past medical history of hypertension, hypothyroidism, gastroesophageal reflux disease, history of chronic anemia, end-stage renal disease on hemodialysis two times per week, history of multiple renal transplants in the past who was admitted because of heavy vaginal bleeding after she had an IUD placed. I was called to see the patient for the management of dialysis. Additional Remarks Patient is alert, no SOB, abd. pain is better. Review of Systems General Constitutional: Fatigue Cardiovascular Cardiac: MUIR Gastrointestinal Gastrointestinal: Abdominal Pain, Nausea & Vomiting Objective Data Data 04/22/17 04/23/17 19:00 07:00 Intake Total 1052 ml Output Total 4500 ml 850 ml Balance -4500 ml 202 ml Intake Oral 360 ml IV Total 692 ml Output Urine Total 850 ml Drainage Total 0 ml Hemodialysis 4500 ml # Bowel Movements 0 Vital Signs Date Time Temp Pulse Resp B/P Pulse Ox O2 Delivery O2 Flow Rate FiO2 04/23/17 06:00 66 04/23/17 04:00 64 04/23/17 04:00 96.8 64 22 156/91 100 04/23/17 02:00 74 04/23/17 01:46 26 04/23/17 00:00 73 04/23/17 00:00 97.3 73 27 167/91 100 04/22/17 22:00 66 04/22/17 20:49 99 Nasal Cannula 3.00 04/22/17 20:00 98.3 70 27 100 04/22/17 20:00 64 04/22/17 18:00 63 04/22/17 16:00 63 04/22/17 16:00 98.1 63 22 159/97 93 04/22/17 14:00 63 -: 04/23/17 0500 04/23/17 0500 Physical Exam General Appearance: No Acute Distress, Comfortable Eyes Eye Exam: Pupils Equal Throat Throat Exam: Oral Mucosa [place] & Moist Pulmonary Resp Exam: Breath Sounds Equal, No Distress, Decreased Bases Cardiology CV Exam: Regular, Normal Sinus Rhythm Gastrointestinal/Abdomen GI Exam: Soft, Bowel Sounds Present (mild lower abd. tenderness.), Non- Distended Extremeties Extremities Exam: Trace Edema Neurologic Neuro Exam: Alert, Awake Psychiatric Psych Exam: Appropriate Responses Assessment/Plan Assessment Summary: Anemia of CKD, Hypertension, End Stage Renal Disease, Transplant Kidney Status Problem List: (1) Hypertension (2) Hypothyroidism (3) History of CVA (cerebrovascular accident) (4) Renal transplant failure and rejection (5) End stage chronic kidney disease (6) Anemia (7) Sepsis Plan History of kidney transplant since age 4 first from the father subsequently mother these lasted for about 15 years and afterwards she received a cadaveric kidney transplant and she received fifth kidney transplant 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 is stable. On Cefepime, Fluconazole and Oral Vanco. ID is following. CTnoted. Now has drain inserted. Culture growing Enterobacter Platelets stable, HIT antibodies negative. Patient has history of renal transplant, on prednisone 7.5 mg daily, got the injection of Nulojix on 04/20. HD done today and 4.5 liters removed on 04/22 Blood pressure has improved I will resume her metoprolol Started on TPN. Problem Qualifiers (1) Hypertension: Qualified Code: I10 - Essential hypertension Dillon Mike MD Apr 23, 2017 12:17
[2017-04-23] MEDS: FLUCONAZOLE 200 MG PREMIX BAG 100 ML IV SCH (13:13)
[2017-04-23] MEDS: CEFEPIME INJ 2,000 MG in SODIUM CHLORIDE 0.9% INJ 100 ML IV SCH (13:14)
--- NOTE | 2017-04-23 14:32 | PD.ONC.PN ---
Subjective Subjective Remarks Afebrile overnight Patient sitting up at bedside with mom watching TV She denies any acute complaints No bleeding Objective Data Date Time Temp Pulse Resp B/P Pulse Ox O2 Delivery O2 Flow Rate FiO2 04/23/17 06:00 66 04/23/17 04:00 64 04/23/17 04:00 96.8 64 22 156/91 100 04/23/17 02:00 74 04/23/17 01:46 26 04/23/17 00:00 73 04/23/17 00:00 97.3 73 27 167/91 100 04/22/17 22:00 66 04/22/17 20:49 99 Nasal Cannula 3.00 04/22/17 20:00 98.3 70 27 100 04/22/17 20:00 64 04/22/17 18:00 63 04/22/17 16:00 63 04/22/17 16:00 98.1 63 22 159/97 93 04/23/17 04/23/17 04/23/17 07:00 15:00 23:00 Intake Total 610 ml Output Total 400 ml Balance 210 ml Result Diagram: 04/23/17 0500 04/23/17 0500 Laboratory Results Laboratory Tests Test 04/23/17 05:00 White Blood Count 2.0 TH/MM3 Red Blood Count 2.96 MIL/MM3 Hemoglobin 8.5 GM/DL Hematocrit 25.5 % Mean Corpuscular Volume 86.1 FL Mean Corpuscular Hemoglobin 28.9 PG Mean Corpuscular Hemoglobin 33.6 % Concent Red Cell Distribution Width 23.4 % Platelet Count 39 TH/MM3 Mean Platelet Volume 9.4 FL Sodium Level 138 MEQ/L Potassium Level 3.7 MEQ/L Chloride Level 102 MEQ/L Carbon Dioxide Level 19.3 MEQ/L Anion Gap 17 MEQ/L Blood Urea Nitrogen 28 MG/DL Creatinine 4.57 MG/DL Estimat Glomerular Filtration 11 ML/MIN Rate Random Glucose 101 MG/DL Calcium Level 7.9 MG/DL Phosphorus Level 2.2 MG/DL Magnesium Level 1.9 MG/DL Administered Medications Medications (Trade) Dose Ordered Sig/Mega Route PRN Reason Start Time Stop Time Status Last Admin Dose Admin Aspirin (Ecotrin Ec) 81 mg DAILY PO 04/16/17 09:00 04/22/17 09:46 Dronedarone (Multaq) 400 mg BID PO 04/15/17 21:00 04/23/17 08:51 Cholecalciferol (Vitamin D3) 2,000 units DAILY PO 04/16/17 09:00 04/23/17 08:52 Sodium Chloride (NS Flush) 2 ml UNSCH PRN .XX FLUSH AFTER USING IV ACCESS 04/15/17 19:00 04/18/17 08:20 Sodium Chloride (NS Flush) 2 ml BID .XX 04/15/17 21:00 04/23/17 08:52 Acetaminophen (Tylenol) 650 mg Q6H PRN PO PAIN 1-10 AND/OR FEVER >101F 04/15/17 19:00 04/17/17 23:57 Ondansetron HCl (Zofran Inj) 4 mg Q6H PRN IV NAUSEA OR VOMITING 04/15/17 19:00 Hold 04/21/17 05:27 Heparin Sodium (Porcine) (Heparin Inj) 5,000 units Q12H SQ 04/15/17 21:00 04/22/17 21:01 Chlorhexidine Gluconate (Chlorhexidine 2% Cloth) Taper DAILY@04 TOP 04/16/17 04:00 04/12/18 03:59 04/21/17 03:09 Senna/Docusate Sodium 1 tab 1 tab BID PO 04/15/17 21:00 04/23/17 08:50 Fluconazole/ Sodium Chloride (Diflucan 200 Mg Premix Bag) 100 ml @ 100 mls/hr Q24H IV 04/16/17 11:00 04/23/17 13:13 Oxycodone HCl (Roxicodone) 10 mg Q4H PRN PO pain 1-6 04/16/17 07:45 04/18/17 10:06 Hydromorphone HCl (Dilaudid Pf Inj) 0.5 mg Q3H PRN IV PUSH pain 7-10 or not taking po 04/16/17 07:45 04/23/17 13:37 Dextrose (D50w (Vial) Inj) 25 ml UNSCH PRN IV PUSH HYPOGLYCEMIA-SEE COMMENTS 04/16/17 07:45 04/21/17 01:09 Famotidine 10 mg 10 mg Q12HR IV PUSH 04/16/17 21:00 04/23/17 08:51 Sodium Chloride (NS 1000 ml Inj) 1,000 ml @ 0 mls/hr Q0M PRN IV For Prime & Rinse Back 04/17/17 11:10 04/22/17 14:30 Epoetin Torsten (Epogen Inj) 10,000 units UNSCH PRN IV WITH DIALYSIS 04/17/17 11:15 04/22/17 14:30 Gelatin (Gelfoam 12 Mm/7 Mm Top) 1 foam UNSCH PRN TOP SEE LABEL COMMENTS 04/17/17 11:15 04/22/17 14:30 Prochlorperazine Edisylate (Compazine Inj) 5 mg Q6H PRN IV PUSH nausea 04/17/17 20:15 04/21/17 21:08 Vancomycin HCl 500 mg 500 mg QID PO 04/20/17 13:00 04/23/17 13:13 Cefepime HCl/ Sodium Chloride (Maxipime Inj/NS Inj) 100 ml @ 200 mls/hr Q24H IV 04/20/17 13:00 04/23/17 13:14 Lorazepam (Ativan Inj) 0.5 mg Q6H PRN IV PUSH NAUSEA OR VOMITING 04/21/17 01:00 04/22/17 21:57 Prednisone (Deltasone) 7.5 mg DAILY PO 04/20/17 19:30 04/23/17 08:50 Melatonin 5 mg 5 mg HS PRN PO INSOMNIA 04/21/17 14:30 04/22/17 21:53 Sodium Chloride 5.5 meq/Sodium Acetate 29.5 meq/ Potassium Chloride 20 meq/ Magnesium Chloride 5 meq/ Calcium Chloride 4.5 meq/ Multivitamins 10 ml/Folic Acid 1 mg/Amino Acids/ Dextrose 1,042.1719 ml @ 42 mls/hr Q24H IV 04/21/17 20:00 04/22/17 21:03 Fat Emulsion Intravenous (Liposyn Iii 20% Inj) 250 ml @ 10 mls/hr Q24H IV 04/21/17 20:00 04/22/17 21:02 Neomycin/ Polymyxin/ Bacitracin (Neosporin Oint) 1 applic Q12HR TOPICAL 04/21/17 21:00 04/23/17 08:48 Lorazepam (Ativan Inj) 0.5 mg HS PRN IV PUSH ANXIETY 04/21/17 20:15 04/21/17 22:18 Levothyroxine Sodium (Synthroid) 25 mcg DAILY@0600 PO 04/23/17 06:00 04/23/17 06:20 Objective Remarks GENERAL: Young woman, sitting up in chair at bedside SKIN: Warm and dry. No oozing from lines HEAD: Normocephalic. EYES: No injection or drainage. NECK: Supple, trachea midline. CARDIOVASCULAR: + S1/S2. Mild murmur noted RESPIRATORY: Breath sounds equal bilaterally. No accessory muscle use. GASTROINTESTINAL: Abdomen distended, mildly tender. EXTREMITIES: No cyanosis. Edema, bilateral lower extremities. NEURO: Normal speech. Moving all extremities. No obvious focal deficit. Assessment/Plan Problem List: (1) Pancytopenia Status: Acute Plan: --due to peripheral destruction from DIC, sepsis, hepatosplenomegaly ( causing sequestration, destruction), multiple antibiotics. Assessment 27-year-old female admitted on 04/15/2017 with fever, malaise, bloody discharge , diarrhea, pelvic cramping.. --was on anticoagulant therapy with Eliquis for h/o CVA --has been transferred to [facility] but they are waiting for platelet count to improve. --h/o Left patella arthroscopic surgery. Plan 1. Closely monitor her CBC. 2. If platelets drop further we will discontinue the subcutaneous heparin. 3. Recommend transfusion only if active bleeding. Attending Statement The exam, history, and the medical decision-making described in the above note were completed with the assistance of the mid-level provider. I reviewed and agree with the findings presented. I attest that I had a [id number] encounter with the patient on the same day, and personally performed and documented my assessment and findings in the medical record. review of ct scan show large abscess in the pelvis which appears loculated. I suspect that uncontrolled infection is the reason for the fall in the platelet count. no bleed. will continue subcut unfractionated heparin for the time being but will stop if surgery contemplated or if there is bleeding or a significant further fall in counts. HIT is negative drawn two days ago. Eileen Rao Apr 23, 2017 14:32 Lawrence Newberry MD Apr 23, 2017 17:25
--- NOTE | 2017-04-23 16:00 | EKG ---
Date Performed: 04/21/2017 Time Performed: 13:12:34 PTAGE: 27 years EKG: Sinus rhythm with bigeminal PVCs Nonspecific ST-T wave changes NO PREVIOUS TRACING DOCTOR: Lawrence Francis Interpretating Date/Time 04/23/2017 15:59:37
--- NOTE | 2017-04-23 16:02 | EKG ---
Date Performed: 04/22/2017 Time Performed: 16:14:15 PTAGE: 27 years EKG: Diffuse nonspecific ST-T change Since PREVIOUS TRACING , ST-T changes are somewhat more prominent, the bigeminal PVCs are no lo nger present. PREVIOUS TRACIN04/21/2017 13.12 DOCTOR: Lawrence Francis Interpretating Date/Time 04/23/2017 16:00:56
--- NOTE | 2017-04-23 17:27 | HHI.CCPN ---
Subjective Remarks/Hospital Course Hospital Course: 27-year-old female who has a chronic renal condition that caused early renal failure in her teens now status post 5 transplants, has had issues of chronic immunosuppresion, including rapid development of pneumonia and ARDS from a cold ; joint sepsis and recent left knee debridement, CVA and need for chronic anticoagulation and dialysis twice weekly in [place], presents today complaining of abdominal pain, fevers, and diarrhea. . Earlier this month, she called [employer] [facility] with extremely heavily bleeding despite placement of mirena IUD. This was so profound she bled to a hgb< 5 and required ablation and transfusion. She did well the first two weeks and then developed the above symptoms two days ago. She was started on by mouth antibiotics by her PRODUCT [employer] physician but her symptoms progressed and she presents to ED today after dialysis. MRI obtained today show unremarkable uterus BUT suggests bilateral TOAs which is unexpected. She is followed by [employer] with desire to avoid surgical intervention given co morbidities. Subjective: 04/16: complaints of abdominal pain not well-controlled with current percocet. hypoglycemic overnight requiring d50w x 1. hemodynamics stabilized. 04/17: abdominal pain is stable. off vasopressors. thrombocytopenic and anemic this morning requiring 2 units prbc and platelets. no evidence of DIC based on high fibrinogen. otherwise clinically stable. again discussed care with graves registration specialist, will plan for conservative management with iv abx and repeat imaging before pursuing surgical options, unless she clinically declines. 04/18: Overnight results patient's C. difficile positive. By mouth Flagyl discontinued. IV Flagyl initiated with by mouth vancomycin. ID following. Patient noted to be thrombocytopenic concern for possible surgical intervention secondary to bilateral adnexal masses. We'll transfuse 2 units of platelets this a.m., and insertion of Calvo catheter per VICE PRESIDENT PAYMENT recommendations. Ofirmev added for 24 hours for pain control. 04/19: Improvement in pain control overnight. Patient remains thrombocytopenic 2 units of platelets provided. Hit panel ordered Patient to IR this afternoon for percutaneous drainage of tubo-ovarian abscesses. Transfer orders placed for [facility] for management by Dr. Dakota Harris, 04/20: The patient underwent CT-guided percutaneous drainage of left tubo- ovarian abscess yesterday with drainage of approximately 60 cc , overnight perc drain in situ an additional 50 cc. Patient complains of mild pain in the pelvic region, Ofirmev every 6 hours added to medication regimen in conjunction with Dilaudid. Patient scheduled for pelvic ultrasound this a.m.. Patient delay in transfer to transplant facility secondary to hematological concerns by facility. Optimization in process,the patient received 2 units of packed red blood cells, and 2 units of platelets overnight, subsequent platelet count continues to be 44. Additionally given this a.m. 2 units of Rh+ platelets to be transfused, patient received Rhogam and and is covered approximately several days ago. This was discussed with Dr. Hylton, pathology secondary to the unavailability of Rh- products. D dimer and fibrinogen labs ordered, hematology oncology consulted appreciate recommendations. 04/21: The patient was noted to have sustained ventricular bigeminy, but normotensive at 12 noon . Stat 12-lead EKG revealed QT prolongation, the patient was noted to have hypophosphatemia which was being replaced . The patient was also noted to have ICU delirium last night with escalation this afternoon. Patient noted not to have had any sleep for the last 48 hours, Ativan 0.5 mg 1 dose given. Olanzapine scheduled for tonight in addition melatonin if needed, to maintain sleep hygiene. No transfer to [facility] at this time, patient continues to have persistent nausea and vomiting, in the setting of QT prolongation. Unable to maintain a PO diet, to include liquids, now also concern for aspiration and patient's confused state. Renal formulation, PPN initiated. Consideration for Dobbhoff tube placement and initiation of tube feeds, but patient agitated, with persistent nausea and vomiting at this time. 04/22: The patient slept for the majority of the evening with 1 dose of Ativan, and melatonin. This a.m. patient remains confused, less agitation, negative ammonia level. Plan for maintenance of sleep hygiene at night, with stimulation during the day. Symptoms of nausea decreased, the patient was able to tolerate a partial sandwich last evening, she continues on PPN at 42 cc/ hour. Levothyroxine dosing resumed, patient tolerating scheduled PO this a.m.. CT scan scheduled per VICE PRESIDENT PAYMENT for this a.m.. 04/23: ICU delirium resolved. The patient slept all night with the use of melatonin. Patient alert and oriented this morning. Complains of mild abdominal discomfort, VAS scale 5/10. Patient tolerating by mouth diet, PPN, lipids discontinued. The patient has intermittent periods of hypertension, to the sedative effects of clonidine discontinued. Metoprolol and Hydralazine added when necessary for hypertension. Heparin reinitiated yesterday, per heme on all a GI oncology recommendation. No platelet count 39,000, due to prothrombotic state increased risks will continue heparin subcutaneous twice a day. Discussed with Dr. Oscar Objective Vital Signs Date Time Temp Pulse Resp B/P Pulse Ox O2 Delivery O2 Flow Rate FiO2 04/23/17 12:00 76 04/23/17 12:00 97.9 20 160/64 95 04/22/17 20:49 Nasal Cannula 3.00 04/19/17 09:19 21 Intake and Output 04/22/17 04/22/17 04/23/17 08:00 16:00 00:00 Intake Total 581 ml 442 ml Output Total 75 ml 4950 ml Balance 506 ml -4508 ml Result Diagram: 04/23/17 0500 04/23/17 0500 Objective Remarks GENERAL: young chronically ill-appearing female, sitting up in chair SKIN: Warm and dry. Anasarca HEAD: Normocephalic. EYES: No scleral icterus. No injection or drainage. NECK: trachea midline. No JVD. CARDIOVASCULAR: Regular rate and rhythm. . RESPIRATORY: equal chest rise. on room air. Nasal cannula O2 at 2 L/m GASTROINTESTINAL: Abdomen soft, moderately tender to palpation over pelvis. only mildly diffusely tender in the upper quadrants. no guarding or rebound. nondistended. Left percutaneous pelvic drain noted, no erythema, dressing C/D/ I minimal serosanguineous fluid noted MUSCULOSKELETAL: No cyanosis, peripheral edema noted 1+, left arm 2+ peripheral edema. EXTREMITIES: No clubbing cyanosis. Left arm 1+ edema elevated. Left upper arm AV fistula noted Neuro: GCS 15, alert and oriented 3. RASS 0. no focal deficits. Procedures 04/19 percutaneous tubo-ovarian abscesses via IR 04/20 pelvic ultrasound 04/20 CT abdomen and pelvis 04/[address] abdomen and pelvis A/P Assessment and Plan Abdominal pain- moderate - secondary to tubo-ovarian abscesses - oxycodone 10mg po q4h prn - dilaudid 0.5mg iv q3h prn Severe Sepsis Tubo-ovarian Abscess Enterobacter bacteremia C. difficile - f/u blood cultures- growing enterobacter - continue Zosyn, Flagyl, vancomycin - Infectious disease following Dr. Cannon - PRODUCT TRAINER following Dr. Dee -04/20 CT abdomen and pelvis bilobed right adnexal mass, diverticulosis, etc. left adnexa, small bilateral pleural effusions, mild abdominal ascites, with slight anasarca - 04/19 S/P percutaneous drainage left tubo-ovarian abscess- Enterobacter cloacae -04/[address] abdomen bilateral pleural effusions with right basilar consolidation. Adnexal mass filled with pus 10.9 cm, splenomegaly Rosie wound infection -- unclear if colonization or infection, but immunocompromised and clinically toxic appearing -- fluconazole, renally adjusted iv. -- ID following Hypoglycemia- resolved. -- PPN x 1 day. Nausea resolved. Patient tolerating 50% of diet. PPN lipids discontinued -- glucose checks q4h -- End-stage renal disease - Hemodialysis per nephrology - consult nephrology- Dr. Pichardo following Hypothyroidism -- Obtain TSH level, Free T4 -Levothyroxin 88 mcgs/day Anemia secondary to critical illness and ESRD- worsening today -- received 1 unit prbc 04/16 -- 2 units prbc 04/17, 2 units PRBC 04/19 -- goal hgb > 7 Thrombocytopenia -- likely secondary to sepsis. low probability HIT 04/17 1 u Plts -- 2 units platelets transfused today given her anemia and critical illness. --04/19 4 units Platelets (Rh -), 04/20 2 units (Rh +) RhoGAM previously given. Discussion with Dr. Hylton pathology patient does not plan on in the near future. Patient remains thrombocytopenic. -- goal plt > 50k. --Hematology/oncology following Dr. Peralta, follow-up recommendations. Heparin 5000 units subcutaneous 2 continue twice a day, per hematology and oncology. Concern for thrombosis -04/19- HIT panel negative -04/23 platelet count 39,000. Continue to monitor Ventricular bigeminy-resolved QT prolongation-resolved -QT interval within normal limits -Replete electrolytes as needed Hypertension - Discontinue Clonidine -Metoprolol, hydralazine when necessary Mild protein calorie malnutrition Persistent nausea and vomiting -04/23 PPN, lipids discontinued -Continue to encourage PO intake as tolerated, renal diet -Zofran when necessary for nausea ICU Delirium-resolved Toxic metabolic encephalopathy-resolved Altered mental status-resolved -Maintain sleep hygiene, out of bed to chair during the day -Melatonin 5 mg @ HS PRN for insomnia -Monitor electrolytes MSK: - Left arm peripheral edema 2+ - 7 venous Doppler ultrasound bilateral upper extremities, negative for DVT -Maintain elevation of left arm -Healing surgical wound left knee-line Neosporin ointment when necessary GERD Nausea and vomiting - Pantoprazole -Zofran-on hold secondary to prolongation of QT Hypophosphatemia -Repleted per ICU electrolyte replacement protocol, DVT GI prophylaxis - Teds SCDs - Pantoprazole Dispo: Discuss with , will continue heparin subcutaneous and monitor platelet count Provided medical status update to parents along with explanation of initiation of PPN, All questions answered. Level 3 Physician Aimee Jennings MD Apr 23, 2017 17:27
[2017-04-23] MEDS: CLINIMIX 4.25/5 (Cust.Renal Periph) 1000 mL- </= 42 mls/hr IV SCH ×8 (20:00)
[2017-04-23] MEDS: FAT EMULSION 20% INJ 250 ML (@10 mls/hr) IV SCH (20:00)
[2017-04-23] MEDS: LORazepam 2 MG/ML VIAL IV PUSH PRN (20:29)
[2017-04-23] MEDS: MELATONIN 5 MG TAB PO PRN (20:30)
[2017-04-23] MEDS: METOPROLOL TARTRATE 50 MG TAB PO SCH (20:30)
--- NOTE | 2017-04-23 20:52 | HHI.PR ---
Subjective Remarks I have not seen Shilpa today but have reviewed scan from yesterday and discussed with Dr Gamble (anthropological linguist), Dr. Newberry ([facility]) and Dr. Tom ( interventional radiologis). The loculated mass on right is 10cm and has not diminished appreciatively since drain placed and last CT. Clinically Shilpa much improved. We have been communicating today and she is lucid and eating half of each of her meals. She has been up in the chair and ambulating. Her lab work is not improved. Consensus is that this loculated mass cannot be adequately diminished in volume without exploratory laparotomy. Dr. Tom is willing to attempt drainage gain since the first drainage did markedly improve her status. But it is unlikely that this will be adequate in the lab[facility] [employer]. The initial general surgery consult asked for transfer to her site of organ transplant and Dr. Harris( nephrology) was willing to except her as attending if Dr. Stephens (tar and ammonia pump operator onc) would be willing to perform the procedure. It was hoped we would see adequate resolution with the first percutaneous drainage, and while it did cause significant clinical improvement, the remaining volume of abcess will likely continue to shower enterobacter and prevent her coagulopathy from improving. I will speak with Dr. Doherty at [facility] in regard to review of films and transfer tomorrow and if appropriate we will look towards Tuesday. Objective - Vital Signs Date Time Temp Pulse Resp B/P Pulse Ox O2 Delivery O2 Flow Rate FiO2 04/23/17 18:00 79 04/23/17 16:00 79 04/23/17 16:00 97.8 91 27 162/100 97 04/23/17 14:00 79 04/23/17 12:00 76 04/23/17 12:00 97.9 76 20 160/64 95 04/23/17 10:00 79 04/23/17 08:00 72 04/23/17 08:00 97.1 72 24 144/98 97 04/23/17 06:00 66 04/23/17 04:00 64 04/23/17 04:00 96.8 64 22 156/91 100 04/23/17 02:00 74 04/23/17 01:46 26 04/23/17 00:00 73 04/23/17 00:00 97.3 73 27 167/91 100 04/22/17 22:00 66 04/22/17 20:49 99 Nasal Cannula 3.00 I/O 04/22/17 04/22/17 04/22/17 04/23/17 04/23/17 04/23/17 06:59 14:59 22:59 06:59 14:59 22:59 Intake Total 581 ml 442 ml 610 ml 1039 ml Output Total 75 ml 4950 ml 400 ml 355 ml Balance 506 ml -4508 ml 210 ml 684 ml Intake Oral 0 ml 120 ml 240 ml 450 ml IV Total 581 ml 322 ml 370 ml 589 ml Output Urine Total 75 ml 450 ml 400 ml 350 ml Drainage Total 0 ml 0 ml 5 ml Hemodialysis 4500 ml # Bowel Movements 0 0 0 1 Result Diagram: 04/23/17 0500 04/23/17 0500 Ayala Espinoza MD Apr 23, 2017 20:52
[2017-04-24] VITALS (13 sets, daily range): BP systolic 135–155; BP diastolic 71–95; PULSE 81–102; RESP 23–53; TEMP 98.9–102.8; O2SAT 92–100
[2017-04-24] MEDS: CHLORHEXIDINE GLUCONATE 2 % 1 PACK (2 CLOTHS) TOP SCH (04:00)
[2017-04-24] MEDS: INSULIN NovoLIN REGULAR SUPPLEMENTAL SCALE SQ SCH ×7 (04:00→23:43)
[2017-04-24] MEDS: LEVOTHYROXINE SODIUM 25 MCG TAB PO SCH (05:41)
[2017-04-24 06:31] LABS: ALT (GPT) 12 U/L (10-53); ANION GAP 20 MEQ/L (5-15); AST (GOT) 30 U/L (15-37); BICARBONATE 16.1 MEQ/L (21.0-32.0); BLOOD UREA NITROGEN 37 MG/DL (7-18); CHLORIDE 103 MEQ/L (98-107); GLOMERULAR FILTRATION RATE 9 ML/MIN (>89); POTASSIUM 3.6 MEQ/L (3.5-5.1); SODIUM (NA) 139 MEQ/L (136-145)
[2017-04-24 06:53] LABS: ALKALINE PHOSPHATASE 946 U/L (45-117)
[2017-04-24 07:52] LABS: HEMATOCRIT 25.9 % (35.0-46.0); MEAN CELL VOLUME 88.2 FL (80.0-100.0); MEAN CORPUSCULAR HEMOGLOBIN 28.3 PG (27.0-34.0); PLATELET COUNT 43 TH/MM3 (150-450); RED BLOOD COUNT 2.93 MIL/MM3 (4.00-5.30); RED CELL DISTRIBUTION WIDTH 23.3 % (11.6-17.2); WHITE BLOOD COUNT 4.1 TH/MM3 (4.0-11.0)
[2017-04-24 07:56] LABS: HEMO FLAGS AUTO DIFF
[2017-04-24] MEDS: DEXTROSE 50% IN WATER 50 ML VIAL(D50) IV PUSH PRN (08:10)
[2017-04-24] MEDS: ONDANSETRON HCL 4 MG/2 ML VIAL IV PRN ×2 (08:20→20:56)
[2017-04-24 08:43] LABS: BANDS 4 % (0-6); BASOPHILS 2 % (0-2); CORRECTED NUCLEATED RBC 1 /100 WBC (0-0); EOSINOPHILS 1 % (0-4); NEUTROPHIL # MANUAL DIFF 2.8 TH/MM3 (1.8-7.7); PLATELET ESTIMATE SMEAR LOW (NORMAL); PLATELET MORPHOLOGY NORMAL (NORMAL); POLYS (SEG NEUTROPHILS) 65 % (16-70); SCAN/DIFF FINAL DIFF MANUAL; WBC DIFF SAMPLE 100
[2017-04-24 08:44] LABS: OVALOCYTES 1+ (NORMAL)
[2017-04-24] MEDS: DRONEDARONE 400 MG TAB PO SCH ×2 (09:00→20:44)
[2017-04-24] MEDS: METOPROLOL TARTRATE 100 MG TAB PO SCH (09:00)
[2017-04-24] MEDS: DOCUSATE SODIUM 50 MG/SENNA 8.6 MG TAB PO SCH ×2 (09:00→21:00)
[2017-04-24] MEDS: predniSONE 5 MG TAB PO SCH (09:00)
[2017-04-24] MEDS: NEOMYCIN/POLYMYXIN/BACITRACIN OINT 15 GM TUBE TOPICAL SCH ×2 (09:00→21:08)
[2017-04-24] MEDS: CHOLECALCIFEROL (VIT D3) 1000 UNIT TAB PO SCH (09:00)
[2017-04-24] MEDS: ASPIRIN EC 81 MG TABEC PO SCH (09:00)
[2017-04-24] MEDS: HEPARIN SODIUM - SQ 10,000 UNITS/ML VIAL SQ SCH ×2 (09:00→20:44)
[2017-04-24] MEDS: VANCOMYCIN 500 MG VIAL (FOR ORAL USE ONLY) PO SCH ×4 (09:00→20:49)
[2017-04-24] MEDS ORDERED: SODIUM BICARBONATE 8.4% INJ 50 MEQ/50 ML SYR ONE (09:07)
[2017-04-24 09:23] LABS: BLOOD GAS BASE EXCESS -6.7 mmol/L (-2-2); BLOOD GAS CARBOXYHEMOGLOBIN 2.3 % (0-4); BLOOD GAS HCO3 16 mmol/L (22-26); BLOOD GAS METHEMOGLOBIN 1.5 % (0-2); BLOOD GAS O2 HGB SATURATION 82 % (90-100); BLOOD GAS OXYGEN CONTENT 8.5 Vol % (12.0-20.0); BLOOD GAS PCO2 23 mmHg (38-42); BLOOD GAS PO2 48 mmHg (61-120); BLOOD GAS TOTAL HGB 7.4 G/DL (12.0-16.0); CRITICAL VALUE YES; TEMP CORR TO 98.6
[2017-04-24 09:24] LABS: DRAW SITE RT RADIAL; LITER FLOW 3 L/M; NUMBER OF ARTERIAL PUNCTURES 1; OXYGEN DEVICE NASAL CANNULA; STAT YES; ULNAR PULSE PRESENT
[2017-04-24] MEDS ORDERED: SODIUM CHLOR 0.9% 250 ML INJ 250 ML IV ONE ×2 (09:45→11:00)
[2017-04-24] MEDS: FAMOTIDINE 20 MG/2 ML VIAL IV PUSH SCH ×2 (10:00→20:44)
[2017-04-24] MEDS: SODIUM CHLORIDE 0.9% FLUSH 10 ML FLUSH SCH ×2 (10:01→21:00)
--- NOTE | 2017-04-24 10:19 | HHI.CCPN ---
Subjective Remarks/Hospital Course Hospital Course: 27-year-old female who has a chronic renal condition that caused early renal failure in her teens now status post 5 transplants, has had issues of chronic immunosuppresion, including rapid development of pneumonia and ARDS from a cold ; joint sepsis and recent left knee debridement, CVA and need for chronic anticoagulation and dialysis twice weekly in [place], presents today complaining of abdominal pain, fevers, and diarrhea. . Earlier this month, she called [employer]PA[employer] with extremely heavily bleeding despite placement of mirena IUD. This was so profound she bled to a hgb< 5 and required ablation and transfusion. She did well the first two weeks and then developed the above symptoms two days ago. She was started on by mouth antibiotics by her [employer] physician but her symptoms progressed and she presents to ED today after dialysis. MRI obtained today show unremarkable uterus BUT suggests bilateral TOAs which is unexpected. She is followed by [employer] C[employer] REPAIRER with desire to avoid surgical intervention given co morbidities. Subjective: 04/16: complaints of abdominal pain not well-controlled with current percocet. hypoglycemic overnight requiring d50w x 1. hemodynamics stabilized. 04/17: abdominal pain is stable. off vasopressors. thrombocytopenic and anemic this morning requiring 2 units prbc and platelets. no evidence of DIC based on high fibrinogen. otherwise clinically stable. again discussed care with middle school pe teacher, will plan for conservative management with iv abx and repeat imaging before pursuing surgical options, unless she clinically declines. 04/18: Overnight results patient's C. difficile positive. By mouth Flagyl discontinued. IV Flagyl initiated with by mouth vancomycin. ID following. Patient noted to be thrombocytopenic concern for possible surgical intervention secondary to bilateral adnexal masses. We'll transfuse 2 units of platelets this a.m., and insertion of Calvo catheter per SALVAGE CLERK recommendations. Ofirmev added for 24 hours for pain control. 04/19: Improvement in pain control overnight. Patient remains thrombocytopenic 2 units of platelets provided. Hit panel ordered Patient to IR this afternoon for percutaneous drainage of tubo-ovarian abscesses. Transfer orders placed for [facility] [place] for management by Dr. Dakota Harris, 04/20: The patient underwent CT-guided percutaneous drainage of left tubo- ovarian abscess yesterday with drainage of approximately 60 cc , overnight perc drain in situ an additional 50 cc. Patient complains of mild pain in the pelvic region, Ofirmev every 6 hours added to medication regimen in conjunction with Dilaudid. Patient scheduled for pelvic ultrasound this a.m.. Patient delay in transfer to transplant facility secondary to hematological concerns by facility. Optimization in process,the patient received 2 units of packed red blood cells, and 2 units of platelets overnight, subsequent platelet count continues to be 44. Additionally given this a.m. 2 units of Rh+ platelets to be transfused, patient received Rhogam and and is covered approximately several days ago. This was discussed with Dr. Hylton, pathology secondary to the unavailability of Rh- products. D dimer and fibrinogen labs ordered, hematology oncology consulted appreciate recommendations. 04/21: The patient was noted to have sustained ventricular bigeminy, but normotensive at 12 noon . Stat 12-lead EKG revealed QT prolongation, the patient was noted to have hypophosphatemia which was being replaced . The patient was also noted to have ICU delirium last night with escalation this afternoon. Patient noted not to have had any sleep for the last 48 hours, Ativan 0.5 mg 1 dose given. Olanzapine scheduled for tonight in addition melatonin if needed, to maintain sleep hygiene. No transfer to [facility] at this time, patient continues to have persistent nausea and vomiting, in the setting of QT prolongation. Unable to maintain a PO diet, to include liquids, now also concern for aspiration and patient's confused state. Renal formulation, PPN initiated. Consideration for Dobbhoff tube placement and initiation of tube feeds, but patient agitated, with persistent nausea and vomiting at this time. 04/22: The patient slept for the majority of the evening with 1 dose of Ativan, and melatonin. This a.m. patient remains confused, less agitation, negative ammonia level. Plan for maintenance of sleep hygiene at night, with stimulation during the day. Symptoms of nausea decreased, the patient was able to tolerate a partial sandwich last evening, she continues on PPN at 42 cc/ hour. Levothyroxine dosing resumed, patient tolerating scheduled PO this a.m.. CT scan scheduled per SALVAGE CLERK for this a.m.. 04/23: ICU delirium resolved. The patient slept all night with the use of melatonin. Patient alert and oriented this morning. Complains of mild abdominal discomfort, VAS scale 5/10. Patient tolerating by mouth diet, PPN, lipids discontinued. The patient has intermittent periods of hypertension, to the sedative effects of clonidine discontinued. Metoprolol and Hydralazine added when necessary for hypertension. Heparin reinitiated yesterday, per heme on all a GI oncology recommendation. No platelet count 39,000, due to prothrombotic state increased risks will continue heparin subcutaneous twice a day. Discussed with Dr. Oscar 04/24: Had a fever with temperature 102 this morning. Respiratory rate increased to the 30s. ABG revealed metabolic acidosis/respiratory alkalosis with hypoxemia. Patient was maintaining O2 sats on 3 L nasal cannula. She was given 1 amp of bicarbonate and placed on Ventimask. Chest x-ray revealed right sided infiltrates raising suspicion for aspiration. Patient is otherwise awake and alert. She did have some sensation of shortness of breath. She also complained of nausea and was given Zofran 4 mg IV stat. Objective Vital Signs Date Time Temp Pulse Resp B/P Pulse Ox O2 Delivery O2 Flow Rate FiO2 04/24/17 06:00 89 04/24/17 04:00 99.3 28 148/94 99 04/23/17 21:05 Nasal Cannula 3.00 Intake and Output 04/23/17 04/23/17 04/24/17 08:00 16:00 00:00 Intake Total 610 ml 1039 ml 0 ml Output Total 400 ml 355 ml 100 ml Balance 210 ml 684 ml -100 ml Result Diagram: 04/24/17 0530 04/24/17 0530 Other Results Laboratory Tests Test 04/24/17 09:08 Blood Gas Puncture Site RT RADIAL Blood Gas Patient Temperature 98.6 Blood Gas HCO3 16 mmol/L (22-26) Blood Gas Base Excess -6.7 mmol/L (-2-2) Blood Gas Oxygen Saturation 82 % (90-100) Arterial Blood pH 7.47 (7.380-7.420) Arterial Blood Partial 23 mmHg (38-42) Pressure CO2 Arterial Blood Partial 48 mmHg Pressure O2 (61-120) Arterial Blood Oxygen Content 8.5 Vol % (12.0-20.0) Arterial Blood 2.3 % (0-4) Carboxyhemoglobin Arterial Blood Methemoglobin 1.5 % (0-2) Blood Gas Hemoglobin 7.4 G/DL (12.0-16.0) Oxygen Delivery Device NASAL CANNULA Blood Gas Liter Flow 3 L/M Imaging Chest x-ray 04/24 which was personally reviewed: Diffuse right sided infiltrates noted Objective Remarks GENERAL: young chronically ill-appearing female, sitting up in chair SKIN: Warm and dry. Anasarca HEAD: Normocephalic. EYES: No scleral icterus. No injection or drainage. NECK: trachea midline. No JVD. CARDIOVASCULAR: Regular rate and rhythm. . RESPIRATORY: equal chest rise. on room air. Nasal cannula O2 at 2 L/m GASTROINTESTINAL: Abdomen soft, moderately tender to palpation over pelvis. only mildly diffusely tender in the upper quadrants. no guarding or rebound. nondistended. Left percutaneous pelvic drain noted, no erythema, dressing C/D/ I minimal serosanguineous fluid noted MUSCULOSKELETAL: No cyanosis, peripheral edema noted 1+, left arm 2+ peripheral edema. EXTREMITIES: No clubbing cyanosis. Left arm 1+ edema elevated. Left upper arm AV fistula noted Neuro: GCS 15, alert and oriented 3. RASS 0. no focal deficits. Procedures 04/19 percutaneous tubo-ovarian abscesses via IR 04/20 pelvic ultrasound 04/20 CT abdomen and pelvis 04/[address] abdomen and pelvis A/P Assessment and Plan 27-year-old female with Abdominal pain- moderate - secondary to tubo-ovarian abscesses - oxycodone 10mg po q4h prn - dilaudid 0.5mg iv q3h prn Severe Sepsis Tubo-ovarian Abscess Enterobacter bacteremia C. diff colitis - f/u blood cultures- growing enterobacter -On IV cefepime, IV fluconazole, PO vancomycin per ID - Infectious disease following Dr. Cannon - [employer]PA[employer] following Dr. Dee -04/20 CT abdomen and pelvis bilobed right adnexal mass, diverticulosis, etc. left adnexa, small bilateral pleural effusions, mild abdominal ascites, with slight anasarca - 04/19 S/P percutaneous drainage left tubo-ovarian abscess- Enterobacter cloacae -04/[address] abdomen bilateral pleural effusions with right basilar consolidation. Adnexal mass filled with pus 10.9 cm, splenomegaly Rosie wound infection -- unclear if colonization or infection, but immunocompromised and clinically toxic appearing -- fluconazole, renally adjusted iv. -- ID following Hypoglycemia- resolved. -- PPN x 1 day. Nausea resolved. Patient tolerating 50% of diet. PPN lipids discontinued -- glucose checks q4h End-stage renal disease - Hemodialysis per nephrology - consult nephrology- Dr. Pichardo following Hypothyroidism -- Obtain TSH level, Free T4 -Levothyroxin 88 mcgs/day Anemia secondary to critical illness and ESRD- worsening today -- received 1 unit prbc 04/16 -- 2 units prbc 04/17, 2 units PRBC 04/19 -- goal hgb > 7 Thrombocytopenia -- likely secondary to sepsis. low probability HIT 04/17 1 u Plts -- 2 units platelets transfused today given her anemia and critical illness. --04/19 4 units Platelets (Rh -), 04/20 2 units (Rh +) RhoGAM previously given. Discussion with Dr. Hylton pathology patient does not plan on in the near future. Patient remains thrombocytopenic. -- goal plt > 50k. --Hematology/oncology following Dr. Peralta, follow-up recommendations. Heparin 5000 units subcutaneous 2 continue twice a day, per hematology and oncology. Concern for thrombosis -04/19- HIT panel negative -04/24 platelet count 43,000. Discussed with Dr. Espinoza who requested platelet transfusion for possible percutaneous drainage/surgery. Ventricular bigeminy-resolved QT prolongation-resolved -QT interval within normal limits -Replete electrolytes as needed Hypertension - Discontinue Clonidine -Metoprolol, hydralazine when necessary Mild protein calorie malnutrition Persistent nausea and vomiting -04/23 PPN, lipids discontinued -Continue to encourage PO intake as tolerated, renal diet -Zofran when necessary for nausea ICU Delirium-resolved Toxic metabolic encephalopathy-resolved Altered mental status-resolved -Maintain sleep hygiene, out of bed to chair during the day -Melatonin 5 mg @ HS PRN for insomnia -Monitor electrolytes MSK: - Left arm peripheral edema 2+ - 04/19 venous Doppler ultrasound bilateral upper extremities, negative for DVT -Maintain elevation of left arm -Healing surgical wound left knee-line Neosporin ointment when necessary GERD Nausea and vomiting - Pantoprazole -Zofran-on hold secondary to prolongation of QT Hypophosphatemia -Repleted per ICU electrolyte replacement protocol, DVT GI prophylaxis - Teds SCDs - Pantoprazole Discussed with GUEST HOUSE MANAGER, discussed with Dr. Espinoza. Discussed with the respiratory therapist. Patient appears to have worsening respiratory status and may require endotracheal intubation if develops respiratory fatigue or worsening O2 sats. She will not be a good candidate for BiPAP due to concern for aspiration. Dr. Espinoza deciding regarding drainage of tubo-ovarian abscess percutaneously and possibly surgically. Dr. Espinoza to discuss with interventional radiology regarding percutaneous drainage of intra-abdominal collection. Tim Pearson MD Apr 24, 2017 10:19
--- NOTE | 2017-04-24 10:20 | HHI.PR ---
Subjective Remarks acidotic and developing ARDS picture per Dr. Pearson. Fever 102 and showering infected material from remaining abcess. Will need open explor to debulk this but will proceed with percutaneous draining this Tuesday no to decrease volume and improve status prior to anticipate surgery tomorrow which will be arranged with gen surg and chemistry lab instructor onc surg backup. Dr. Newberry, Dr. Tom and Dr. Pearson currently aware. Dr. Nichole not available. Shilpa's mom aware. Objective - Vital Signs Date Time Temp Pulse Resp B/P Pulse Ox O2 Delivery O2 Flow Rate FiO2 04/24/17 06:00 89 04/24/17 04:00 85 04/24/17 04:00 99.3 85 28 148/94 99 04/24/17 02:00 85 04/24/17 00:00 98.9 82 25 137/95 98 04/24/17 00:00 82 04/23/17 22:00 84 04/23/17 21:05 97 Nasal Cannula 3.00 04/23/17 20:00 91 04/23/17 20:00 99.1 88 24 162/96 99 04/23/17 18:00 79 04/23/17 16:00 79 04/23/17 16:00 97.8 91 27 162/100 97 04/23/17 14:00 79 04/23/17 12:00 76 04/23/17 12:00 97.9 76 20 160/64 95 I/O 04/23/17 04/23/17 04/23/17 04/24/17 04/24/17 04/24/17 06:59 14:59 22:59 06:59 14:59 22:59 Intake Total 610 ml 1039 ml 0 ml Output Total 400 ml 355 ml 100 ml 450 ml Balance 210 ml 684 ml -100 ml -450 ml Intake Oral 240 ml 450 ml IV Total 370 ml 589 ml 0 ml Output Urine Total 400 ml 350 ml 100 ml 450 ml Drainage Total 5 ml # Bowel Movements 0 1 0 0 Result Diagram: 04/24/1752904/24/17529 Ayala Espinoza MD Apr 24, 2017 10:20
--- NOTE | 2017-04-24 10:28 | RADRPT ---
EXAM DATE/TIME: 04/24/2017 09:11 [place] COMPARISON: CHEST SINGLE AP, April 16, 2017, 3:44. INDICATIONS : Difficulty breathing. MEDICAL HISTORY : Hypertension. Renal failure, chronic. SURGICAL HISTORY : Kidney transplant, dialysis port ENCOUNTER: Subsequent ACUITY: 4 - 6 days PAIN SCORE: 0/10 LOCATION: Bilateral chest FINDINGS: [id number] in good position on the right. Cardiomegaly with mild interstitial edema present. Dev eloping consolidative changes right midlung. There is no pleural effusion or pneumothorax. CONCLUSION: 1. Increasing consolidation is on the right 2. Persistent mild interstitial edema present. Can Vidal MD FACR on April 24, 2017 at 10:25 Board Certified Radiologist. This report was verified electronically.
--- NOTE | 2017-04-24 10:37 | PD.ONC.PN ---
Subjective Subjective Remarks Her RN, her temp axillary this morning was 102.8 She has been progressively tachypneic this morning Her nurse she is scheduled to go down to interventional radiology for adjustments of her drain Objective Data Date Time Temp Pulse Resp B/P Pulse Ox O2 Delivery O2 Flow Rate FiO2 04/24/17 06:00 89 04/24/17 04:00 85 04/24/17 04:00 99.3 85 28 148/94 99 04/24/17 02:00 85 04/24/17 00:00 98.9 82 25 137/95 98 04/24/17 00:00 82 04/23/17 22:00 84 04/23/17 21:05 97 Nasal Cannula 3.00 04/23/17 20:00 91 04/23/17 20:00 99.1 88 24 162/96 99 04/23/17 18:00 79 04/23/17 16:00 79 04/23/17 16:00 97.8 91 27 162/100 97 04/23/17 14:00 79 04/23/17 12:00 76 04/23/17 12:00 97.9 76 20 160/64 95 04/24/17 04/24/17 04/24/17 07:00 15:00 23:00 Output Total 450 ml Balance -450 ml Result Diagram: 04/24/1752904/24/17 0530 Laboratory Results Laboratory Tests Test 04/24/17 04/24/17 04/24/17 04:05 05:30 09:08 White Blood Count TH/MM3 4.1 TH/MM3 Red Blood Count MIL/MM3 2.93 MIL/MM3 Hemoglobin GM/DL 8.3 GM/DL Hematocrit % 25.9 % Mean Corpuscular Volume FL 88.2 FL Mean Corpuscular Hemoglobin PG 28.3 PG Mean Corpuscular Hemoglobin % 32.0 % Concent Red Cell Distribution Width % 23.3 % Platelet Count TH/MM3 43 TH/MM3 Mean Platelet Volume FL 8.9 FL Neutrophils (%) (Auto) % % Lymphocytes (%) (Auto) % % Monocytes (%) (Auto) % % Eosinophils (%) (Auto) % % Basophils (%) (Auto) % % Neutrophils # (Auto) TH/MM3 TH/MM3 Lymphocytes # (Auto) TH/MM3 TH/MM3 Monocytes # (Auto) TH/MM3 TH/MM3 Eosinophils # (Auto) TH/MM3 TH/MM3 Basophils # (Auto) TH/MM3 TH/MM3 CBC Comment AUTO DIFF Differential Comment FINAL DIFF MANUAL Sodium Level MEQ/L 139 MEQ/L Potassium Level MEQ/L 3.6 MEQ/L Chloride Level MEQ/L 103 MEQ/L Carbon Dioxide Level MEQ/L 16.1 MEQ/L Anion Gap MEQ/L 20 MEQ/L Blood Urea Nitrogen MG/DL 37 MG/DL Creatinine MG/DL 5.37 MG/DL Estimat Glomerular Filtration ML/MIN 9 ML/MIN Rate Random Glucose MG/DL 69 MG/DL Calcium Level MG/DL 8.6 MG/DL Protein Corrected Calcium MG/DL Total Protein GM/DL 4.9 GM/DL Differential Total Cells 100 Counted Neutrophils % (Manual) 65 % Band Neutrophils % 4 % Lymphocytes % 18 % Monocytes % 10 % Eosinophils % 1 % Basophils % 2 % Neutrophils # (Manual) 2.8 TH/MM3 Nucleated Red Blood Cells 1 /100 WBC Platelet Estimate LOW Platelet Morphology Comment NORMAL Ovalocytes 1+ Total Bilirubin 2.0 MG/DL Aspartate Amino Transf 30 U/L (AST/SGOT) Alanine Aminotransferase 12 U/L (ALT/SGPT) Alkaline Phosphatase 946 U/L Albumin 2.1 GM/DL Blood Gas Puncture Site RT RADIAL Blood Gas Patient Temperature 98.6 Blood Gas HCO3 16 mmol/L Blood Gas Base Excess -6.7 mmol/L Blood Gas Oxygen Saturation 82 % Arterial Blood pH 7.47 Arterial Blood Partial 23 mmHg Pressure CO2 Arterial Blood Partial 48 mmHg Pressure O2 Arterial Blood Oxygen Content 8.5 Vol % Arterial Blood 2.3 % Carboxyhemoglobin Arterial Blood Methemoglobin 1.5 % Blood Gas Hemoglobin 7.4 G/DL Oxygen Delivery Device NASAL CANNULA Blood Gas Liter Flow 3 L/M Administered Medications Medications (Trade) Dose Ordered Sig/Mega Route PRN Reason Start Time Stop Time Status Last Admin Dose Admin Aspirin (Ecotrin Ec) 81 mg DAILY PO 04/16/17 09:00 04/22/17 09:46 Dronedarone (Multaq) 400 mg BID PO 04/15/17 21:00 04/23/17 20:32 Cholecalciferol (Vitamin D3) 2,000 units DAILY PO 04/16/17 09:00 04/23/17 08:52 Sodium Chloride (NS Flush) 2 ml UNSCH PRN .XX FLUSH AFTER USING IV ACCESS 04/15/17 19:00 04/18/17 08:20 Sodium Chloride (NS Flush) 2 ml BID .XX 04/15/17 21:00 04/24/17 10:01 Acetaminophen (Tylenol) 650 mg Q6H PRN PO PAIN 1-10 AND/OR FEVER >101F 04/15/17 19:00 04/17/17 23:57 Ondansetron HCl (Zofran Inj) 4 mg Q6H PRN IV NAUSEA OR VOMITING 04/15/17 19:00 Hold 04/21/17 05:27 Heparin Sodium (Porcine) (Heparin Inj) 5,000 units Q12H SQ 04/15/17 21:00 04/23/17 20:28 Chlorhexidine Gluconate (Chlorhexidine 2% Cloth) Taper DAILY@04 TOP 04/16/17 04:00 04/12/18 03:59 04/24/17 04:00 Senna/Docusate Sodium 1 tab 1 tab BID PO 04/15/17 21:00 04/23/17 08:50 Fluconazole/ Sodium Chloride (Diflucan 200 Mg Premix Bag) 100 ml @ 100 mls/hr Q24H IV 04/16/17 11:00 04/23/17 13:13 Oxycodone HCl (Roxicodone) 10 mg Q4H PRN PO pain 1-6 04/16/17 07:45 04/18/17 10:06 Hydromorphone HCl (Dilaudid Pf Inj) 0.5 mg Q3H PRN IV PUSH pain 7-10 or not taking po 04/16/17 07:45 04/23/17 20:29 Dextrose (D50w (Vial) Inj) 25 ml UNSCH PRN IV PUSH HYPOGLYCEMIA-SEE COMMENTS 04/16/17 07:45 04/24/17 08:10 Famotidine 10 mg 10 mg Q12HR IV PUSH 04/16/17 21:00 04/24/17 10:00 Sodium Chloride (NS 1000 ml Inj) 1,000 ml @ 0 mls/hr Q0M PRN IV For Prime & Rinse Back 04/17/17 11:10 04/22/17 14:30 Ondansetron HCl (Zofran Inj) 4 mg UNSCH PRN IV WITH DIALYSIS 04/17/17 11:15 04/24/17 08:20 Epoetin Torsten (Epogen Inj) 10,000 units UNSCH PRN IV WITH DIALYSIS 04/17/17 11:15 04/22/17 14:30 Gelatin (Gelfoam 12 Mm/7 Mm Top) 1 foam UNSCH PRN TOP SEE LABEL COMMENTS 04/17/17 11:15 04/22/17 14:30 Prochlorperazine Edisylate (Compazine Inj) 5 mg Q6H PRN IV PUSH nausea 04/17/17 20:15 04/21/17 21:08 Vancomycin HCl 500 mg 500 mg QID PO 04/20/17 13:00 04/23/17 20:28 Cefepime HCl/ Sodium Chloride (Maxipime Inj/NS Inj) 100 ml @ 200 mls/hr Q24H IV 04/20/17 13:00 04/23/17 13:14 Lorazepam (Ativan Inj) 0.5 mg Q6H PRN IV PUSH NAUSEA OR VOMITING 04/21/17 01:00 04/22/17 21:57 Prednisone (Deltasone) 7.5 mg DAILY PO 04/20/17 19:30 04/23/17 08:50 Melatonin (Melatonin) 5 mg HS PRN PO INSOMNIA 04/21/17 14:30 04/23/17 20:30 Neomycin/ Polymyxin/ Bacitracin (Neosporin Oint) 1 applic Q12HR TOPICAL 04/21/17 21:00 04/23/17 20:32 Lorazepam (Ativan Inj) 0.5 mg HS PRN IV PUSH ANXIETY 04/21/17 20:15 04/23/17 20:29 Levothyroxine Sodium (Synthroid) 25 mcg DAILY@0600 PO 04/23/17 06:00 04/24/17 05:41 Metoprolol Tartrate (Lopressor) 50 mg HS PO 04/23/17 21:00 04/23/17 20:30 Objective Remarks GENERAL: Young female, resting in bed in moderate respiratory distress. SKIN: Warm and dry. No oozing from lines HEAD: Normocephalic. EYES: No injection or drainage. NECK: Supple, trachea midline. CARDIOVASCULAR: + S1/S2. Mild murmur noted RESPIRATORY: On nonrebreather mask. She is tachypneic GASTROINTESTINAL: Abdomen distended, mildly tender. EXTREMITIES: Generalized edema to extremities NEURO: More somnolent today. Answers questions when spoken to. Assessment/Plan Problem List: (1) Pancytopenia Status: Acute Plan: --due to peripheral destruction from DIC, sepsis, hepatosplenomegaly ( causing sequestration, destruction), multiple antibiotics. Assessment 27-year-old female admitted on 04/15/2017 with fever, malaise, bloody discharge , diarrhea, pelvic cramping.. Plan 1. Patient is going to interventional radiology today for drain placement 2. Dr. Espinoza is planning to perform surgery tomorrow 3. We will obtain coag studies today and tomorrow. 4. We will give her 10 mg of vitamin K subcutaneous today, and plan to transfuse 2 units of platelets tomorrow morning before surgery. 5. Subcutaneous heparin placed on hold Eileen Rao Apr 24, 2017 10:37
[2017-04-24] MEDS ORDERED: PHYTONADIONE 10 MG/ML VIAL SQ ONE (11:00)
[2017-04-24] MEDS ORDERED: ACETAMINOPHEN 325 MG TAB PO PRN (11:00)
[2017-04-24 11:07] LABS: INTERNATIONAL NORMALIZED RATIO 1.4 RATIO; PROTHROMBIN TIME - PATIENT 15.6 SEC (9.8-11.6)
[2017-04-24] MEDS ORDERED: AMIODARONE INJ 150 MG in DEXTROSE 5% IN WATER 100ML INJ 97 ML IV ONE ×2 (11:15)
--- NOTE | 2017-04-24 11:17 | HHI.NPPN ---
Subjective General Problems: Anemia, Hypertension Renal Failure: End Stage Renal Disease History of Present Illness 27-year-old female with past medical history of hypertension, hypothyroidism, gastroesophageal reflux disease, history of chronic anemia, end-stage renal disease on hemodialysis two times per week, history of multiple renal transplants in the past who was admitted because of heavy vaginal bleeding after she had an IUD placed. I was called to see the patient for the management of dialysis. Additional Remarks Patient worsen overnight and has been febrile, and altered mental status dyspneic face mask oxygen Diarrhea present Developed atrial fibrillation with fast ventricular response Review of Systems General Constitutional: Fatigue Cardiovascular Cardiac: MUIR Gastrointestinal Gastrointestinal: Abdominal Pain, Nausea & Vomiting, Diarrhea Objective Data Data 04/23/17 04/24/17 19:00 07:00 Intake Total 1039 ml 0 ml Output Total 355 ml 550 ml Balance 684 ml -550 ml Intake Oral 450 ml IV Total 589 ml 0 ml Output Urine Total 350 ml 550 ml Drainage Total 5 ml # Bowel Movements 1 0 Vital Signs Date Time Temp Pulse Resp B/P Pulse Ox O2 Delivery O2 Flow Rate FiO2 04/24/17 06:00 89 04/24/17 04:00 85 04/24/17 04:00 99.3 85 28 148/94 99 04/24/17 02:00 85 04/24/17 00:00 98.9 82 25 137/95 98 04/24/17 00:00 82 04/23/17 22:00 84 04/23/17 21:05 97 Nasal Cannula 3.00 04/23/17 20:00 91 04/23/17 20:00 99.1 88 24 162/96 99 04/23/17 18:00 79 04/23/17 16:00 79 04/23/17 16:00 97.8 91 27 162/100 97 04/23/17 14:00 79 04/23/17 12:00 76 04/23/17 12:00 97.9 76 20 160/64 95 -: 04/24/17 0530 04/24/17 0530 Physical Exam General Appearance: Pale Pulmonary Resp Exam: Breath Sounds Equal, Decreased Bases, Diminished Breath Sounds Cardiology CV Exam: Arrhythmia Gastrointestinal/Abdomen GI Exam: Soft, Positive Bowel Movement, Non-Distended Extremeties Extremities Exam: Trace Edema Neurologic Neuro Exam: Obtunded Assessment/Plan Assessment Summary: Anemia of CKD, Hypertension, End Stage Renal Disease, Transplant Kidney Status Problem List: (1) Hypertension (2) Hypothyroidism (3) History of CVA (cerebrovascular accident) (4) Renal transplant failure and rejection (5) End stage chronic kidney disease (6) Anemia (7) Sepsis Plan History of kidney transplant since age 4 first from the father subsequently mother these lasted for about 15 years and afterwards she received a cadaveric kidney transplant and she received 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 ID is following. CT noted. Now has drain inserted. Culture growing Enterobacter on prednisone 7.5 mg daily, got the injection of Nulojix on 04/20. HD done today and 4.5 liters removed on 04/22 Blood pressure is stable with increased heart rate Patient developed diarrhea C. difficile is being treated as above Dr. Pichardo to follow Problem Qualifiers (1) Hypertension: Qualified Code: I10 - Essential hypertension Dillon Mike MD Apr 24, 2017 11:17
[2017-04-24] MEDS: FLUCONAZOLE 200 MG PREMIX BAG 100 ML IV SCH (11:24)
[2017-04-24] MEDS: HYDROmorphone HCL PF 1 MG/ML VIAL IV PUSH PRN ×2 (11:33→20:57)
[2017-04-24] MEDS: AMIODARONE INJ 450 MG in DEXTROSE 5% IN WATE(EXCEL) INJ 241 ML IV SCH ×4 (11:44→23:29)
[2017-04-24] MEDS: SODIUM CHLORIDE 0.9% FLUSH 10 ML FLUSH PRN (11:46)
[2017-04-24] MEDS ORDERED: LIDOCAINE 1%/EPINEPHrine 1:100,000 SOLN 20 ML VIAL ONE (12:30)
--- NOTE | 2017-04-24 13:58 | PD.CONS ---
HPI Service General Surgery Consult Requested By Dr. Espinoza Reason for Consult bilateral large tuboovarian abscesses, multiple previous renal transplants Primary Care Physician Alcides Monzon MD (Paul) History of Present Illness 27-year-old female with history of end-stage renal disease and 5 previous kidney transplants with very complex chronic and recent medical history. She was admitted to the hospital about 9 days ago and found to have likely bilateral tubo-ovarian abscesses. She had recently undergone endometrial ablation for uterine bleeding. The patient has been managed nonoperatively with IV antibiotics and on 04/19 underwent radiologic guided drainage of left tubo-ovarian abscess which has decreased significantly in size on repeat CT scans. She continues to be critically ill in today has metabolic acidosis and some respiratory distress. Blood cultures have grown Enterobacter. She has thrombocytopenia and mild coagulopathy. She also has C. difficile colitis for which she is on oral vancomycin. She is on amiodarone drip. She had a fever of nearly 103 this morning. She complains of lower abdominal pain which has been persistent throughout this hospitalization. She is being transported now to radiology for CT-guided drainage of the right tubo-ovarian abscess. Her mother is at the bedside. Review of Systems Constitutional: COMPLAINS OF: Fever Eyes: DENIES: Eye inflammation, Eye pain Respiratory: COMPLAINS OF: Cough, Shortness of breath Cardiovascular: DENIES: Chest pain Gastrointestinal: COMPLAINS OF: Abdominal pain, Diarrhea Integumentary: DENIES: Pruritus, Rash Neurologic: DENIES: Seizures Past Family Social History Past Medical History hypothyroidism hypertension GERD endstage renal failure hemodialysis dependent. CVA Past Surgical History Renal transplant 5 left knee surgery x 2 endometrial ablation Reported Medications Reported Meds & Active Scripts Active Reported Clonidine (Clonidine HCl) 0.1 Mg Tab 0.1 Mg PO BID PRN Multaq (Dronedarone) 400 Mg Tab 400 Mg PO BID Macrobid (Nitrofurantoin Monoh/Nitrofur Macro) 100 Mg Cap 100 Mg PO Q12HR 7 Days Percocet (Oxycodone-Acetaminophen) 5-325 mg Tab 1-2 Tab PO Q6H PRN Zofran (Ondansetron HCl) 4 Mg Tab 4 Mg PO Q12HR PRN Colace (Docusate Sodium) 100 Mg Capsule 100 Mg PO DAILY Vitamin D-3 (Cholecalciferol) 2,000 Unit Tab 2,000 Units PO DAILY Aspirin Adult Low Strength (Aspirin) 81 Mg Tabdr 81 Mg PO DAILY Allergies: Coded Allergies: Gabapentin (Verified Allergy, Severe, 04/15/17) muscle spasms Active Ordered Medications Current Medications Medications (Trade) Dose Ordered Sig/Mega Route Start Time Stop Time Status Last Admin (Ecotrin Ec) 81 mg DAILY PO 04/16/17 09:00 04/22/17 09:46 (Catapres) 0.1 mg BID PRN PO 04/15/17 18:45 (Multaq) 400 mg BID PO 04/15/17 21:00 04/23/17 20:32 (Vitamin D3) 2,000 units DAILY PO 04/16/17 09:00 04/23/17 08:52 (NS Flush) 2 ml UNSCH PRN .XX 04/15/17 19:00 04/24/17 11:46 (NS Flush) 2 ml BID .XX 04/15/17 21:00 04/24/17 10:01 (Tylenol) 650 mg Q6H PRN PO 04/15/17 19:00 04/17/17 23:57 (Zofran Inj) 4 mg Q6H PRN IV 04/15/17 19:00 Hold 04/21/17 05:27 (Heparin Inj) 5,000 units Q12H SQ 04/15/17 21:00 04/23/17 20:28 Miscellaneous Information 1 Q361D XX 04/15/17 19:00 (Chlorhexidine 2% Cloth) Taper DAILY@04 TOP 04/16/17 04:00 04/12/18 03:59 04/24/17 04:00 (Chlorhexidine 2% Cloth) 3 pack UNSCH PRN TOP 04/15/17 19:00 (Carlee-Colace) 1 tab BID PO 04/15/17 21:00 04/23/17 08:50 (Milk Of Magnesia Liq) 30 ml Q12H PRN PO 04/15/17 19:00 (Senokot) 17.2 mg Q12H PRN PO 04/15/17 19:00 (Dulcolax Supp) 10 mg DAILY PRN RECTAL 04/15/17 19:00 Lactulose 30 ml 30 ml DAILY PRN PO 04/15/17 19:00 (Diflucan 200 Mg Premix Bag) 100 ml @ 100 mls/hr Q24H IV 04/16/17 11:00 04/24/17 11:24 (Roxicodone) 10 mg Q4H PRN PO 04/16/17 07:45 04/18/17 10:06 (Dilaudid Pf Inj) 0.5 mg Q3H PRN IV PUSH 04/16/17 07:45 04/24/17 11:33 (D50w (Vial) Inj) 25 ml UNSCH PRN IV PUSH 04/16/17 07:45 04/24/17 08:10 (NovoLIN R SUPPLEMENTAL SCALE) 1 Q4HR SQ 04/16/17 08:00 Famotidine 10 mg 10 mg Q12HR IV PUSH 04/16/17 21:00 04/24/17 10:00 (NS 1000 ml Inj) 1,000 ml @ 0 mls/hr Q0M PRN IV 04/17/17 11:10 04/22/17 14:30 Heparin Sodium (Porcine) 8000 units 8,000 units UNSCH PRN IVF 04/17/17 11:15 Sodium Chloride 1,000 ml @ 200 mls/hr Q5H PRN IV 04/17/17 11:10 (NS 1000 ml Inj) 1,000 ml @ 0 mls/hr Q0M PRN IV 04/17/17 11:10 (Mannitol Inj) 12.5 gm UNSCH PRN IV 04/17/17 11:15 (Albumin 25% Inj) 25 gm UNSCH PRN IV 04/17/17 11:15 (NS Flush) 5 ml UNSCH PRN IV FLUSH 04/17/17 11:15 04/24/17 11:46 (Heparin Inj) UNSCH PRN .XX 04/17/17 11:15 (Gentamicin (Dialysis) Inj) 20 mg UNSCH PRN IV 04/17/17 11:15 (Zofran Inj) 4 mg UNSCH PRN IV 04/17/17 11:15 04/24/17 08:20 (Tylenol) 650 mg UNSCH PRN PO 04/17/17 11:15 (Benadryl) 25 mg UNSCH PRN PO 04/17/17 11:15 (Nitrostat Sl) 0.4 mg UNSCH PRN SL 04/17/17 11:15 (Catapres) 0.1 mg UNSCH PRN PO 04/17/17 11:15 (Epogen Inj) 10,000 units UNSCH PRN IV 04/17/17 11:15 04/22/17 14:30 (Gelfoam 12 Mm/7 Mm Top) 1 foam UNSCH PRN TOP 04/17/17 11:15 04/22/17 14:30 (Compazine Inj) 5 mg Q6H PRN IV PUSH 04/17/17 20:15 04/21/17 21:08 Vancomycin HCl 500 mg 500 mg QID PO 04/20/17 13:00 04/23/17 20:28 (Maxipime Inj/NS Inj) 100 ml @ 200 mls/hr Q24H IV 04/20/17 13:00 04/23/17 13:14 (Ativan Inj) 0.5 mg Q6H PRN IV PUSH 04/21/17 01:00 04/22/17 21:57 (Deltasone) 7.5 mg DAILY PO 04/20/17 19:30 04/23/17 08:50 (Pill Splitter) 1 ea UNSCH PRN OTHER 04/20/17 20:00 (Melatonin) 5 mg HS PRN PO 04/21/17 14:30 04/23/17 20:30 (Neosporin Oint) 1 applic Q12HR TOPICAL 04/21/17 21:00 04/23/17 20:32 (Ativan Inj) 0.5 mg HS PRN IV PUSH 04/21/17 20:15 04/23/17 20:29 (Synthroid) 25 mcg DAILY@0600 PO 04/23/17 06:00 04/24/17 05:41 (Zofran Inj) 4 mg Q6HR PRN IV PUSH 04/22/17 10:30 (Lopressor) 50 mg HS PO 04/23/17 21:00 04/23/17 20:30 Metoprolol Tartrate 100 mg 100 mg DAILY PO 04/24/17 09:00 (NS 250 ml Inj) 250 ml @ 15 mls/hr ONCE ONCE IV 04/24/17 11:00 04/25/17 03:39 04/24/17 11:45 Acetaminophen 650 mg 650 mg Q4H PRN PO 04/24/17 11:00 04/24/17 15:01 (Cordarone Inj/ D5W ([place]) Inj) 250 ml @ 0 mls/hr CONTINUOUS IV 04/24/17 12:00 04/24/17 11:44 Family History Noncontributory Social History No alcohol tobacco or drug use. 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 Atraumatic. EYES: Pupils equal round and reactive to light bilaterally. No scleral icterus. NECK: Trachea midline. CHEST: Tachypneic, venti mask in place, mild distress CARDIOVASCULAR: tachycardic ABDOMEN: thickened midline scar from a few cm above umbilicus to pubis. A couple smaller transverse scars. Severe tenderness with fullness in lower abdomen. Accordion drain in place ss output SKIN: cool, dry. Laboratory Laboratory Tests Test 04/24/17 04/24/17 04/24/17 04/24/17 04:05 05:30 09:08 09:45 White Blood Count 4.1 Red Blood Count 2.93 Hemoglobin 8.3 Hematocrit 25.9 Mean Corpuscular Volume 88.2 Mean Corpuscular Hemoglobin 28.3 Mean Corpuscular Hemoglobin 32.0 Concent Red Cell Distribution Width 23.3 Platelet Count 43 Mean Platelet Volume 8.9 Neutrophils (%) (Auto) Lymphocytes (%) (Auto) Monocytes (%) (Auto) Eosinophils (%) (Auto) Basophils (%) (Auto) Neutrophils # (Auto) Lymphocytes # (Auto) Monocytes # (Auto) Eosinophils # (Auto) Basophils # (Auto) CBC Comment AUTO DIFF Differential Comment FINAL DIFF MANUAL Sodium Level 139 Potassium Level 3.6 Chloride Level 103 Carbon Dioxide Level 16.1 Anion Gap 20 Blood Urea Nitrogen 37 Creatinine 5.37 Estimat Glomerular Filtration 9 Rate Random Glucose 69 Calcium Level 8.6 Protein Corrected Calcium Total Protein 4.9 Differential Total Cells 100 Counted Neutrophils % (Manual) 65 Band Neutrophils % 4 Lymphocytes % 18 Monocytes % 10 Eosinophils % 1 Basophils % 2 Neutrophils # (Manual) 2.8 Nucleated Red Blood Cells 1 Platelet Estimate LOW Platelet Morphology Comment NORMAL Ovalocytes 1+ Total Bilirubin 2.0 Aspartate Amino Transf 30 (AST/SGOT) Alanine Aminotransferase 12 (ALT/SGPT) Alkaline Phosphatase 946 Albumin 2.1 Blood Gas Puncture Site RT RADIAL Blood Gas Patient Temperature 98.6 Blood Gas HCO3 16 Blood Gas Base Excess -6.7 Blood Gas Oxygen Saturation 82 Arterial Blood pH 7.47 Arterial Blood Partial 23 Pressure CO2 Arterial Blood Partial 48 Pressure O2 Arterial Blood Oxygen Content 8.5 Arterial Blood 2.3 Carboxyhemoglobin Arterial Blood Methemoglobin 1.5 Blood Gas Hemoglobin 7.4 Oxygen Delivery Device NASAL CANNULA Blood Gas Liter Flow 3 Blood Bank Comment Test 04/24/17 10:30 Prothrombin Time 15.6 Prothromb Time International 1.4 Ratio Activated Partial 42.0 Thromboplast Time Blood Type O NEGATIVE Result Diagram: 04/24/17 0530 04/24/17 0530 Imaging Last Impressions Chest X-Ray 04/24/17 0000 Signed Impressions: Service Date/Time: Monday, April 24, 2017 09:11 - CONCLUSION: 1. Increasing consolidation is on the right 2. Persistent mild interstitial edema present. Can Vidal MD FACR Abdomen/Pelvis CT 04/22/17 0000 Signed Impressions: Service Date/Time: Saturday, April 22, 2017 17:30 - CONCLUSION: The fluid collection adjacent to the left percutaneous drain has not changed since 2 days ago and multiseptated pyosalpinx on the right side has also not significantly changed. The rest of the examination has not changed. Tin Spencer MD Abscess Drainage CT 04/19/17 0957 Signed Impressions: Service Date/Time: Wednesday, April 19, 2017 11:12 - CONCLUSION: Uncomplicated CT guided drainage. Galdino Heredia MD Upper Extremity Ultrasound 04/19/17 0000 Signed Impressions: Service Date/Time: Wednesday, April 19, 2017 20:24 - CONCLUSION: No DVT in either upper extremity. Yusuf Jacob MD Pelvis Ultrasound 04/17/17 0000 Signed Impressions: Service Date/Time: Monday, April 17, 2017 11:32 - CONCLUSION: There are complex adnexal masses bilaterally and a normal left ovary is not visualized, however the right ovary is visualized and the above-mentioned adnexal mass appears to be separate from it. Possibility of pyosalpinx should be entertained although the left ovary is not seen and therefore tubo-ovarian abscess in the left ovary is not excluded. Tin Spencer MD Pelvis MRI 04/15/17 0000 Signed Impressions: Service Date/Time: Saturday, April 15, 2017 18:39 - CONCLUSION: 1. The uterus is normal in appearance without obvious endometrial thickening or mass. 2. Normal appearing ovaries are not visualized. In the adnexal region bilaterally dilated tortuous tubular structures are seen with a cystic complex appearance concerning for bilateral hydrosalpinx and tubo-ovarian abscess formation given the extensive inflammatory changes should be considered. 3. Abnormal circumferential bowel wall thickening involving the rectum. 4. Right lower quadrant transplant kidney with hydronephrosis. Moe Aragon MD Assessment and Plan Assessment and Plan 27-year-old female with bilateral large tubo-ovarian abscesses complicated by past surgical history of 5 renal transplants, end-stage renal disease, thrombocytopenia, respiratory distress, coagulopathy. I agree with radiologic drainage of second undrained tubo-ovarian abscess. Would recommend that if abscess able to be drained successfully, follow her clinically without immediate operative intervention. Discussed Condition With Karri Smith Dr., MD Apr 24, 2017 13:58
[2017-04-24] MEDS ORDERED: MIDAZOLAM HCL 2 MG/2 ML VIAL ONE ×2 (14:01→14:22)
[2017-04-24] MEDS: CEFEPIME INJ 2,000 MG in SODIUM CHLORIDE 0.9% INJ 100 ML IV SCH (14:30)
--- NOTE | 2017-04-24 14:45 | PD.RAD ---
Post CT Procedure Prog Note Pre Procedure Diagnosis: (1) TOA (tubo-ovarian abscess) (2) Renal transplant disorder Post Procedure Diagnosis: (1) TOA (tubo-ovarian abscess) (2) Renal transplant disorder Procedure Date: Apr 24, 2017 Supervising Radiologist: Elvis Tom JR Anesthesia: Conscious Sedation Plan of Activity Patient to Unit: Critical Care Patient Condition: Fair See PACS Report for procedural detail/treatment Drainage Procedure Procedure 1 Imaging Guidance: CT Side: Right Procedure Type: Abscess Drainage Procedure: Placement Georgian: 8 Drainage: Suction Fluid Description: Purulent Findings: 160 ml of purulent material obtained. Sample sent to beto Tom Jr., Thomas Justin MD Apr 24, 2017 14:45
--- NOTE | 2017-04-24 15:17 | HHI.PR ---
Subjective Remarks Underwent successful percutaneous drainage of large right collection by Dr. Tom and returning to her MICU bed. Platelets available for tomorrow if additional intervention indicated. For now will allow to rest and see if decrease in volume of abcess material improves coagulation status and blood indices. Will re evaluate in the morning. Objective - Vital Signs Date Time Temp Pulse Resp B/P Pulse Ox O2 Delivery O2 Flow Rate FiO2 04/24/17 06:00 89 04/24/17 04:00 85 04/24/17 04:00 99.3 85 28 148/94 99 04/24/17 02:00 85 04/24/17 00:00 98.9 82 25 137/95 98 04/24/17 00:00 82 04/23/17 22:00 84 04/23/17 21:05 97 Nasal Cannula 3.00 04/23/17 20:00 91 04/23/17 20:00 99.1 88 24 162/96 99 04/23/17 18:00 79 04/23/17 16:00 79 04/23/17 16:00 97.8 91 27 162/100 97 I/O 04/23/17 04/23/17 04/23/17 04/24/17 04/24/17 04/24/17 07:00 15:00 23:00 07:00 15:00 23:00 Intake Total 610 ml 1039 ml 0 ml Output Total 400 ml 355 ml 100 ml 450 ml Balance 210 ml 684 ml -100 ml -450 ml Intake Oral 240 ml 450 ml IV Total 370 ml 589 ml 0 ml Output Urine Total 400 ml 350 ml 100 ml 450 ml Drainage Total 5 ml # Bowel Movements 0 1 0 0 Result Diagram: 04/24/1752904/24/17529 Ayala Espinoza MD Apr 24, 2017 15:17
--- NOTE | 2017-04-24 15:17 | EKG ---
Date Performed: 04/24/2017 Time Performed: 11:03:56 PTAGE: 27 years EKG: Nonspecific ST-T wave change 1 PAC present Compared to prior tracing, slight improvement in the ST-T changes. PREVIOUS TRACING 04/22/2017 DOCTOR: Lawrence Francis Interpretating Date/Time 04/24/2017 15:15:17
[2017-04-24] MEDS: DEXTROSE 5% IN WATE 1000ML INJ 1,000 ML IV SCH (18:30)
[2017-04-24] MEDS: METOPROLOL TARTRATE 50 MG TAB PO SCH (20:44)
[2017-04-25] VITALS (14 sets, daily range): BP systolic 119–148; BP diastolic 78–91; PULSE 68–98; RESP 14–30; TEMP 97.8–102.1; O2SAT 94–100
[2017-04-25 03:36] LABS: AUTOMATED NEUTROPHIL # 2.7 TH/MM3 (1.8-7.7); BASOPHIL % 0.8 % (0.0-2.0); EOSINOPHIL % 0.4 % (0.0-4.0); HEMATOCRIT 22.6 % (35.0-46.0); LYMPH % 8.4 % (9.0-44.0); LYMPHOCYTE # 0.3 TH/MM3 (1.0-4.8); MEAN CELL VOLUME 88.1 FL (80.0-100.0); MEAN CORPUSCULAR HEMOGLOBIN 28.9 PG (27.0-34.0); MEAN CORPUSCULAR HGB CONC 32.9 % (32.0-36.0); MONO % 16.5 % (0.0-8.0); NEUT % 73.9 % (16.0-70.0); PLATELET COUNT 51 TH/MM3 (150-450); RED BLOOD COUNT 2.56 MIL/MM3 (4.00-5.30); RED CELL DISTRIBUTION WIDTH 22.6 % (11.6-17.2); WHITE BLOOD COUNT 3.7 TH/MM3 (4.0-11.0)
[2017-04-25 03:56] LABS: HEMO FLAGS AUTO DIFF
[2017-04-25 03:57] LABS: APTT (PATIENT) 43.6 SEC (24.3-30.1); INTERNATIONAL NORMALIZED RATIO 1.5 RATIO; PROTHROMBIN TIME - PATIENT 17.4 SEC (9.8-11.6)
[2017-04-25] MEDS: CHLORHEXIDINE GLUCONATE 2 % 1 PACK (2 CLOTHS) TOP SCH (04:00)
[2017-04-25] MEDS: INSULIN NovoLIN REGULAR SUPPLEMENTAL SCALE SQ SCH ×6 (04:00→23:49)
[2017-04-25 04:05] LABS: ALT (GPT) 8 U/L (10-53); ANION GAP 18 MEQ/L (5-15); AST (GOT) 11 U/L (15-37); BICARBONATE 16.1 MEQ/L (21.0-32.0); BLOOD UREA NITROGEN 45 MG/DL (7-18); CHLORIDE 105 MEQ/L (98-107); GLOMERULAR FILTRATION RATE 8 ML/MIN (>89); POTASSIUM 3.7 MEQ/L (3.5-5.1); SODIUM (NA) 139 MEQ/L (136-145)
[2017-04-25] MEDS: HYDROmorphone HCL PF 1 MG/ML VIAL IV PUSH PRN ×5 (04:06→23:50)
[2017-04-25 04:13] LABS: ALKALINE PHOSPHATASE 675 U/L (45-117); TOTAL BILIRUBIN ADULT 1.9 MG/DL (0.2-1.0)
[2017-04-25] MEDS: LEVOTHYROXINE SODIUM 25 MCG TAB PO SCH (06:00)
[2017-04-25 06:41] LABS: OVALOCYTES 1+ (NORMAL); PLATELET ESTIMATE SMEAR LOW (NORMAL); PLATELET MORPHOLOGY NORMAL (NORMAL)
[2017-04-25 06:42] LABS: SCAN/DIFF AUTO DIFF CONFIRMED
--- NOTE | 2017-04-25 08:28 | RADRPT ---
EXAM DATE/TIME: 04/24/2017 14:06 [place] COMPARISON: CT ASSISTED ABSCESS DRAIN, April 19, 2017, 11:12. INDICATIONS : Tubo-ovarian abscess. Right-sided renal transplant with poor function. SEDATION TIME: 30 minutes MEDICATION(S): 1.) 3 midazolam (Versed) IV 2.) 150 fentanyl (Sublimaze) IV DEVICE(S): 1.) 18 gauge Ziegler blunt needle 2.) 8 Fr Skater FLUID: Total volume of 160 cc of cloudy, red fluid was removed. Fluid was sent for laboratory ordered studies. MEDICAL HISTORY : Stroke. Hypertension. Cardiovascular disease. SURGICAL HISTORY : parathyroidectomy, kidney transplants ENCOUNTER: Initial ACUITY: 1 day PAIN SCORE: 7/10 LOCATION: Bilateral abdomen PROCEDURE: 1.) Conscious sedation with continuous EKG and oximetry monitoring. 2.) EKG and oximetry remained stable throughout the procedure. PROCEDURE : 1. CT guided drainage of the right pelvic fluid collection 2. Conscious sedation with continuous EKG and oximetry monitoring. The risks, benefits and alternatives to the procedure were explained and verbal and written consent w as obtained. Using automated exposure control and adjustment of the mA and/or kV according to patient size, radiation dose was kept as low as reasonably achievable to obtain optimal diagnostic quality i mages. The site was prepped in sterile fashion. Full sterile technique was used, including cap, ma sk, sterile gloves and gown and a large sterile sheet. Hand hygiene and 2% chlorhexidine and/or beta dine/alcohol prep was utilized per protocol for cutaneous antisepsis. The skin and subcutaneous tiss ues were infiltrated with local anesthetic solution. DICOM format image data is available electronic ally for review and comparison. Using CT guidance the more anterior right pelvic fluid collection was localized. Drainage was perfor med using the prescribed catheter. 160 mL of purulent material was obtained. A sample was sent for cu lture. The patient tolerated the procedure well and there were no complications. Conscious sedation was per formed with the prescribed dosages and duration as above in the presence of an independent trained ra diology nurse to assist in the monitoring of the patient. EKG and oximetry remained stable throughou t the procedure. The patient tolerated the procedure well and there were no complications. The patient was sent to pos t anesthesia recovery in stable condition. CONCLUSION: Uncomplicated CT guided drainage of a right anterior pelvic fluid collection. 160 mL of purulent mate rial was obtained. Samples sent for evaluation. Elvis Tom Jr., MD on April 25, 2017 at 8:25 Board Certified Radiologist. This report was verified electronically.
[2017-04-25] MEDS: VANCOMYCIN 500 MG VIAL (FOR ORAL USE ONLY) PO SCH ×5 (09:00→21:17)
[2017-04-25] MEDS: SODIUM CHLORIDE 0.9% FLUSH 10 ML FLUSH SCH ×2 (09:00→21:18)
[2017-04-25] MEDS: NEOMYCIN/POLYMYXIN/BACITRACIN OINT 15 GM TUBE TOPICAL SCH ×2 (09:43→21:18)
--- NOTE | 2017-04-25 10:43 | HHI.IDPN ---
Subjective Subjective Remarks Patient is a 27-year-old female, who has a complicated medical history, recently underwent procedure for severe menstrual bleeding. She underwent D&C and ablation around March 24. 2 days prior to admission she started having significant abdominal pain, and some nausea. She also has had some fever and chills. She had episodes of diarrhea, but that has resolved. She also noted some mucousy bloody vaginal drainage. She presented to the hospital, and imaging studies showed significant inflammatory changes in the pelvis and possibly tubo-ovarian abscess. She has the transplanted kidney with hydronephrosis. Since admission she has been febrile up to 103. Her blood pressure is okay. She still has significant abdominal pain. The pain is in the lower quadrant and it radiates to her back. She denies any respiratory complaint. Patient has renal failure, and is anuric. 2 blood cultures done on admission are now reported as growing Enterobacter. Patient also has had problem with her left knee. She initially had fracture of her left patella, and has had arthroscopic surgery. There was a culture done in May that had Rosie albicans. Patient apparently had been given Diflucan previously. The last time she had any surgery on that left knee here in this area was in August, and this was done at [facility]. Culture it looks like from that surgery did not grow anything. Patient was subsequently referred to a doctor in [place], and she underwent more extensive surgery to her left knee. Culture reportedly grew yeast, and the patient was given Cresemba by the infectious disease physician who saw her at [facility]. She has a follow-up appointment with that infectious disease doctor around end of April. Notes reviewed D/W RN Febrile yesterday Has new percutaneous drain on R side; initial fluid purulent, now bloody BM looks less recorded Getting HD this morning New fluid C/S pending On admission one BC with Enterobacter Fluid C/S with hEnterobacter Antibiotics Cefepime Diflucan Vanco po Lines Port Past Medical History Hypothyroidism Hypertension GERD Endstage renal disease, on HD - diagnosis made when she was about 3 years old CVA in 2012 History of chronic steroid therapy. 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 Vital Signs Date Time Temp Pulse Resp B/P Pulse Ox O2 Delivery O2 Flow Rate FiO2 04/25/17 08:32 98 Nasal Cannula 3.00 04/25/17 06:00 80 04/25/17 04:00 101.3 83 28 147/87 94 04/25/17 04:00 83 04/25/17 02:00 79 04/25/17 00:00 102.1 89 25 145/86 100 04/25/17 00:00 89 04/24/17 22:00 86 04/24/17 20:00 101.2 86 28 145/91 99 04/24/17 20:00 82 04/24/17 18:00 91 04/24/17 16:33 92 Venturi Mask 6.00 50 04/24/17 16:00 86 04/24/17 16:00 100.6 86 23 149/92 98 04/24/17 14:00 81 04/24/17 12:00 97 04/24/17 12:00 101.1 97 34 135/71 96 04/24/17 04/24/17 04/25/17 14:59 22:59 06:59 Intake Total 898 ml 496 ml 649 ml Output Total 455 ml 265 ml 235 ml Balance 443 ml 231 ml 414 ml Intake Oral 0 ml 60 ml 60 ml IV Total 898 ml 436 ml 589 ml Output Urine Total 250 ml 250 ml 200 ml Drainage Total 205 ml 15 ml 35 ml # Bowel Movements 1 0 1 . Laboratory Tests Test 04/24/17 04/24/17 04/25/17 04:05 05:30 03:25 White Blood Count TH/MM3 4.1 TH/MM3 3.7 TH/MM3 Red Blood Count MIL/MM3 2.93 MIL/MM3 2.56 MIL/MM3 Hemoglobin GM/DL 8.3 GM/DL 7.4 GM/DL Hematocrit % 25.9 % 22.6 % Mean Corpuscular Volume FL 88.2 FL 88.1 FL Mean Corpuscular Hemoglobin PG 28.3 PG 28.9 PG Mean Corpuscular Hemoglobin % 32.0 % 32.9 % Concent Red Cell Distribution Width % 23.3 % 22.6 % Platelet Count TH/MM3 43 TH/MM3 51 TH/MM3 Mean Platelet Volume FL 8.9 FL 8.7 FL Neutrophils (%) (Auto) % % 73.9 % Lymphocytes (%) (Auto) % % 8.4 % Monocytes (%) (Auto) % % 16.5 % Eosinophils (%) (Auto) % % 0.4 % Basophils (%) (Auto) % % 0.8 % Neutrophils # (Auto) TH/MM3 TH/MM3 2.7 TH/MM3 Lymphocytes # (Auto) TH/MM3 TH/MM3 0.3 TH/MM3 Monocytes # (Auto) TH/MM3 TH/MM3 0.6 TH/MM3 Eosinophils # (Auto) TH/MM3 TH/MM3 0.0 TH/MM3 Basophils # (Auto) TH/MM3 TH/MM3 0.0 TH/MM3 CBC Comment AUTO DIFF AUTO DIFF Differential Comment FINAL DIFF AUTO DIFF MANUAL CONFIRMED Differential Total Cells 100 Counted Neutrophils % (Manual) 65 % Band Neutrophils % 4 % Lymphocytes % 18 % Monocytes % 10 % Eosinophils % 1 % Basophils % 2 % Neutrophils # (Manual) 2.8 TH/MM3 Nucleated Red Blood Cells 1 /100 WBC Platelet Estimate LOW LOW Platelet Morphology Comment NORMAL NORMAL Ovalocytes 1+ 1+ Laboratory Tests Test 04/24/17 04/24/17 04/25/17 04/25/17 04:05 05:30 03:25 03:26 Sodium Level MEQ/L 139 MEQ/L 139 MEQ/L Potassium Level MEQ/L 3.6 MEQ/L 3.7 MEQ/L Chloride Level MEQ/L 103 MEQ/L 105 MEQ/L Carbon Dioxide Level MEQ/L 16.1 MEQ/L 16.1 MEQ/L Anion Gap MEQ/L 20 MEQ/L 18 MEQ/L Blood Urea Nitrogen MG/DL 37 MG/DL 45 MG/DL Creatinine MG/DL 5.37 MG/DL 6.04 MG/DL Estimat Glomerular Filtration ML/MIN 9 ML/MIN 8 ML/MIN Rate Random Glucose MG/DL 69 MG/DL 74 MG/DL Calcium Level MG/DL 8.6 MG/DL 8.1 MG/DL Protein Corrected Calcium MG/DL Total Protein GM/DL 4.9 GM/DL 4.7 GM/DL Total Bilirubin 2.0 MG/DL 1.9 MG/DL Aspartate Amino Transf 30 U/L 11 U/L (AST/SGOT) Alanine Aminotransferase 12 U/L 8 U/L (ALT/SGPT) Alkaline Phosphatase 946 U/L 675 U/L Albumin 2.1 GM/DL 2.0 GM/DL Phosphorus Level 2.9 MG/DL Lactic Acid Level 0.4 mmol/L Microbiology Date/Time Procedure Status Source Growth 04/24/17 14:20 Gram Stain - Final Resulted Abscess Other 04/24/17 14:20 Wound Culture Resulted Abscess Other Pending Imaging ons Abdomen/Pelvis CT 04/20/17 0000 Signed Impressions: Service Date/Time: Thursday, April 20, 2017 18:16 - CONCLUSION: 1. The complex fluid collection left adnexa has significantly decreased in size. 2. Stable findings as above. Yusuf Jacob MD Abscess Drainage CT 04/19/17 0957 Signed Impressions: Service Date/Time: Wednesday, April 19, 2017 11:12 - CONCLUSION: Uncomplicated CT guided drainage. Galdino Heredia MD Abdomen/Pelvis CT 04/18/17 0000 Signed Impressions: Service Date/Time: Tuesday, April 18, 2017 16:08 - CONCLUSION: 1. Stable bilateral adnexal complex cystic masses/collections. 2. Hepatosplenomegaly. 3. Tiny bilateral pleural effusions with adjacent bilbasilar atelectasis. 4. Tiny pericardial effusion. 5. Cardiomegaly. Mikael León MD Pelvis Ultrasound 04/17/17 0000 Signed Impressions: Service Date/Time: Monday, April 17, 2017 11:32 - CONCLUSION: There are complex adnexal masses bilaterally and a normal left ovary is not visualized, however the right ovary is visualized and the above-mentioned adnexal mass appears to be separate from it. Possibility of pyosalpinx should be entertained although the left ovary is not seen and therefore tubo-ovarian abscess in the left ovary is not excluded. Tin Spencer MD Chest X-Ray 04/16/17 0000 Signed Impressions: Service Date/Time: Sunday, April 16, 2017 03:44 - CONCLUSION: No acute disease Chris Myrick MD Pelvis MRI 04/15/17 0000 Signed Impressions: Service Date/Time: Saturday, April 15, 2017 18:39 - CONCLUSION: 1. The uterus is normal in appearance without obvious endometrial thickening or mass. 2. Normal appearing ovaries are not visualized. In the adnexal region bilaterally dilated tortuous tubular structures are seen with a cystic complex appearance concerning for bilateral hydrosalpinx and tubo-ovarian abscess formation given the extensive inflammatory changes should be considered. 3. Abnormal circumferential bowel wall thickening involving the rectum. 4. Right lower quadrant transplant kidney with hydronephrosis. Moe Aragon MD Physical Exam GENERAL: awakens easily, very weak, not dyspneic SKIN: Warm and dry. No generalized rash HEAD: Atraumatic. Normocephalic. No temporal wasting, or tenderness. EYES: [place] conjunctiva. No petechia or hemorrhage. No scleral icterus. No injection or drainage. EARS, NOSE AND THROAT: Nose without bleeding or purulent nasal discharge. Mucous membranes pink and moist. No oral lesions noted. NECK: Trachea midline. Supple and not tender, no meningeal signs CARDIOVASCULAR: Regular rate and rhythm. No murmurs, rubs or gallops heard RESPIRATORY: Clear to auscultation. No rales, wheezing or rhonchi. Decreased at bases. Port in R upper chest, no evidence of infection ABDOMEN: Distended, hypoactive bowel sounds has scars compatible with multiple abdominal surgeries, mild abdominal tenderness. Drains [address] not much in bag, old blood EXTREMITIES: No clubbing, cyanosis. No pedal edema. Her L knee has effusion, healed incisions with some scabs present, NEUROLOGICAL: Awakens easily, very weak PSYCHIATRIC: cooperative. LINE: Port with no evidence of infection Assessment & Plan Remarks IMPRESSION Enterobacter sepsis, due to TOA - has drain in place - recent D and C, and ablation for heavy bleeding; not sexually active - has some rectal wall thickening - has port Recurrent fevers, ?source ESRD, previous transplant x 5, last one done 2014 - on HD had AVG in her L upper arm Infection L knee, with yeast , OR end of January, has been on Cresemba, clinically improving C diff colitis Pancytopenia, stable - leukopenia, ?due to meds (Zosyn, Flagyl), ?due to infection, better RECOMMENDATION Repeat 2 BC today Follow new fluid C/S Change Cefepime to Meropenem Give a dose of IV Vanco Continue Diflucan for her knee infection - C/S from [place] reviewed - had Rosie albicans and sensitive to Diflucan and echinocandins Continue po VAnco for C diff Monitor progress Follow CBC D/W RN Aury Cannon MD Apr 25, 2017 10:43 Aury Cannon MD Apr 25, 2017 10:43
[2017-04-25] MEDS ORDERED: MISCELLANEOUS PHARMACY INFORMATION XX PRN (10:45)
[2017-04-25] MEDS ORDERED: ASP: Other exception documentation: ( ) PRN (10:45)
[2017-04-25] MEDS ORDERED: VANCOMYCIN INJ 1,000 MG in SODIUM CHLOR 0.9% 250 ML INJ 250 ML IV ONE (11:00)
--- NOTE | 2017-04-25 11:05 | HHI.PR ---
Subjective Remarks Undergoing dialysis painful and pretty out of it. States her biggest complaint is her headache did not want her face washed or her lips moistened Objective - Vital Signs Date Time Temp Pulse Resp B/P Pulse Ox O2 Delivery O2 Flow Rate FiO2 04/25/17 08:32 98 Nasal Cannula 3.00 04/25/17 06:00 80 04/25/17 04:00 101.3 83 28 147/87 94 04/25/17 04:00 83 04/25/17 02:00 79 04/25/17 00:00 102.1 89 25 145/86 100 04/25/17 00:00 89 04/24/17 22:00 86 04/24/17 20:00 101.2 86 28 145/91 99 04/24/17 20:00 82 04/24/17 18:00 91 04/24/17 16:33 92 Venturi Mask 6.00 50 04/24/17 16:00 86 04/24/17 16:00 100.6 86 23 149/92 98 04/24/17 14:00 81 04/24/17 12:00 97 04/24/17 12:00 101.1 97 34 135/71 96 I/O 04/24/17 04/24/17 04/24/17 04/25/17 04/25/17 04/25/17 07:00 15:00 23:00 07:00 15:00 23:00 Intake Total 898 ml 496 ml 649 ml Output Total 450 ml 455 ml 265 ml 235 ml Balance -450 ml 443 ml 231 ml 414 ml Intake Oral 0 ml 60 ml 60 ml IV Total 898 ml 436 ml 589 ml Output Urine Total 450 ml 250 ml 250 ml 200 ml Drainage Total 205 ml 15 ml 35 ml # Bowel Movements 0 1 0 1 Result Diagram: 04/25/17 0325 04/25/17 0325 Other Results drainage from right side remains significant. Minimal from left Well over 250cc from right overall. A small posterior collection remains that we cannot easily reachperhaps transvaginal. left arm more swollen. platelets better able to mount a fever Objective Remarks Local surgeons in consensus with day of rest and recuperation --hoping to see improvement with volume of abcess material greatly diminised. Medications and IVs consider additional anerobic/gram neg coverage? will notify dr. Harris in [place] of recent course. fioricet for headache now Ayala Espinoza MD Apr 25, 2017 11:05
[2017-04-25] MEDS: SODIUM CHLOR 0.9% 1000 ML INJ 1,000 ML IV PRN (11:14)
[2017-04-25] MEDS: EPOETIN ALFA 10,000 UNITS/ML VIAL IV PRN (11:14)
[2017-04-25] MEDS: GELATIN 12 MM/7 MM FOAM TOP PRN (11:14)
[2017-04-25] MEDS: PROCHLORPERAZINE INJ 10 MG/2 ML VIAL IV PUSH PRN (11:20)
[2017-04-25] MEDS: LORazepam 2 MG/ML VIAL IV PUSH PRN (11:26)
[2017-04-25] MEDS ORDERED: ACETAMIN 325 MG/BUTALBITAL 50 MG/CAFFEINE 40 MG TAB PO ONE (11:30)
[2017-04-25] MEDS ORDERED: DEXTROSE 50% IN WATER 50 ML SYRINGE ONE (11:35)
[2017-04-25] MEDS: DEXTROSE 50% IN WATER 50 ML VIAL(D50) IV PUSH PRN (11:36)
[2017-04-25] MEDS: FAMOTIDINE 20 MG/2 ML VIAL IV PUSH SCH ×2 (12:23→21:17)
[2017-04-25] MEDS: ASPIRIN EC 81 MG TABEC PO SCH (12:23)
[2017-04-25] MEDS: CHOLECALCIFEROL (VIT D3) 1000 UNIT TAB PO SCH (12:23)
[2017-04-25] MEDS: DRONEDARONE 400 MG TAB PO SCH ×2 (12:24→21:18)
[2017-04-25] MEDS: predniSONE 5 MG TAB PO SCH (12:24)
[2017-04-25] MEDS: HEPARIN SODIUM - SQ 10,000 UNITS/ML VIAL SQ SCH ×2 (12:25→21:18)
[2017-04-25] MEDS: FLUCONAZOLE 200 MG PREMIX BAG 100 ML IV SCH (12:25)
[2017-04-25] MEDS: DOCUSATE SODIUM 50 MG/SENNA 8.6 MG TAB PO SCH ×2 (12:25→21:00)
[2017-04-25] MEDS: METOPROLOL TARTRATE 100 MG TAB PO SCH (12:25)
[2017-04-25] MEDS: MEROPENEM INJ 500 MG in SODIUM CHLORIDE 0.9% INJ 100 ML IV SCH ×2 (12:29→23:53)
[2017-04-25] MEDS: DEXTROSE 5% IN WATE 1000ML INJ 1,000 ML IV SCH (12:29)
--- NOTE | 2017-04-25 13:43 | PD.ONC.PN ---
Subjective Subjective Remarks Tmax 102.8 this morning. Patient alternates between grogginess and crying in pain. Per nurse at bedside, she has been like this all morning. She refused her morning meds. No procedures planned for today at present. Objective Data Date Time Temp Pulse Resp B/P Pulse Ox O2 Delivery O2 Flow Rate FiO2 04/25/17 08:32 98 Nasal Cannula 3.00 04/25/17 06:00 80 04/25/17 04:00 101.3 83 28 147/87 94 04/25/17 04:00 83 04/25/17 02:00 79 04/25/17 00:00 102.1 89 25 145/86 100 04/25/17 00:00 89 04/24/17 22:00 86 04/24/17 20:00 101.2 86 28 145/91 99 04/24/17 20:00 82 04/24/17 18:00 91 04/24/17 16:33 92 Venturi Mask 6.00 50 04/24/17 16:00 86 04/24/17 16:00 100.6 86 23 149/92 98 04/24/17 14:00 81 04/25/17 04/25/17 04/25/17 07:00 15:00 23:00 Intake Total 649 ml Output Total 235 ml Balance 414 ml Result Diagram: 04/25/17 0325 04/25/17 0325 Laboratory Results Laboratory Tests Test 04/24/17 04/25/17 04/25/17 04/25/17 14:09 00:36 03:25 03:26 Antibody Identification PASSIVE ANTI-D DUE TO [facility] Blood Bank Comment White Blood Count 3.7 TH/MM3 Red Blood Count 2.56 MIL/MM3 Hemoglobin 7.4 GM/DL Hematocrit 22.6 % Mean Corpuscular Volume 88.1 FL Mean Corpuscular Hemoglobin 28.9 PG Mean Corpuscular Hemoglobin 32.9 % Concent Red Cell Distribution Width 22.6 % Platelet Count 51 TH/MM3 Mean Platelet Volume 8.7 FL Neutrophils (%) (Auto) 73.9 % Lymphocytes (%) (Auto) 8.4 % Monocytes (%) (Auto) 16.5 % Eosinophils (%) (Auto) 0.4 % Basophils (%) (Auto) 0.8 % Neutrophils # (Auto) 2.7 TH/MM3 Lymphocytes # (Auto) 0.3 TH/MM3 Monocytes # (Auto) 0.6 TH/MM3 Eosinophils # (Auto) 0.0 TH/MM3 Basophils # (Auto) 0.0 TH/MM3 CBC Comment AUTO DIFF Differential Comment AUTO DIFF CONFIRMED Platelet Estimate LOW Platelet Morphology Comment NORMAL Ovalocytes 1+ Prothrombin Time 17.4 SEC Prothromb Time International 1.5 RATIO Ratio Activated Partial 43.6 SEC Thromboplast Time Sodium Level 139 MEQ/L Potassium Level 3.7 MEQ/L Chloride Level 105 MEQ/L Carbon Dioxide Level 16.1 MEQ/L Anion Gap 18 MEQ/L Blood Urea Nitrogen 45 MG/DL Creatinine 6.04 MG/DL Estimat Glomerular Filtration 8 ML/MIN Rate Random Glucose 74 MG/DL Calcium Level 8.1 MG/DL Phosphorus Level 2.9 MG/DL Total Bilirubin 1.9 MG/DL Aspartate Amino Transf 11 U/L (AST/SGOT) Alanine Aminotransferase 8 U/L (ALT/SGPT) Alkaline Phosphatase 675 U/L Total Protein 4.7 GM/DL Albumin 2.0 GM/DL Lactic Acid Level 0.4 mmol/L Culture Results Microbiology Date/Time Procedure Status Source Growth 04/24/17 14:20 Gram Stain - Final Resulted Abscess Other 04/24/17 14:20 Wound Culture - Preliminary Resulted Gram Negative Manjeet 04/25/17 10:40 Aerobic Blood Culture Received Blood Other Pending 04/25/17 10:40 Anaerobic Blood Culture Received Blood Other Pending 04/25/17 10:40 Aerobic Blood Culture Received Blood Other Pending 04/25/17 10:40 Anaerobic Blood Culture Received Blood Other Pending Administered Medications Medications (Trade) Dose Ordered Sig/Mega Route PRN Reason Start Time Stop Time Status Last Admin Dose Admin Aspirin (Ecotrin Ec) 81 mg DAILY PO 04/16/17 09:00 04/25/17 12:23 Dronedarone (Multaq) 400 mg BID PO 04/15/17 21:00 04/25/17 12:24 Cholecalciferol (Vitamin D3) 2,000 units DAILY PO 04/16/17 09:00 04/25/17 12:23 Sodium Chloride (NS Flush) 2 ml UNSCH PRN .XX FLUSH AFTER USING IV ACCESS 04/15/17 19:00 04/24/17 11:46 Sodium Chloride (NS Flush) 2 ml BID .XX 04/15/17 21:00 04/25/17 09:00 Acetaminophen (Tylenol) 650 mg Q6H PRN PO PAIN 1-10 AND/OR FEVER >101F 04/15/17 19:00 04/17/17 23:57 Ondansetron HCl (Zofran Inj) 4 mg Q6H PRN IV NAUSEA OR VOMITING 04/15/17 19:00 Hold 04/21/17 05:27 Heparin Sodium (Porcine) (Heparin Inj) 5,000 units Q12H SQ 04/15/17 21:00 04/25/17 12:25 Chlorhexidine Gluconate (Chlorhexidine 2% Cloth) Taper DAILY@04 TOP 04/16/17 04:00 04/12/18 03:59 04/24/17 04:00 Senna/Docusate Sodium 1 tab 1 tab BID PO 04/15/17 21:00 04/25/17 12:25 Fluconazole/ Sodium Chloride (Diflucan 200 Mg Premix Bag) 100 ml @ 100 mls/hr Q24H IV 04/16/17 11:00 04/24/17 11:24 Oxycodone HCl (Roxicodone) 10 mg Q4H PRN PO pain 1-6 04/16/17 07:45 04/25/17 05:53 Hydromorphone HCl (Dilaudid Pf Inj) 0.5 mg Q3H PRN IV PUSH pain 7-10 or not taking po 04/16/17 07:45 04/25/17 09:40 Dextrose (D50w (Vial) Inj) 25 ml UNSCH PRN IV PUSH HYPOGLYCEMIA-SEE COMMENTS 04/16/17 07:45 04/25/17 11:36 Famotidine 10 mg 10 mg Q12HR IV PUSH 04/16/17 21:00 04/25/17 12:23 Sodium Chloride (NS 1000 ml Inj) 1,000 ml @ 0 mls/hr Q0M PRN IV For Prime & Rinse Back 04/17/17 11:10 04/25/17 11:14 Sodium Chloride (NS Flush) 5 ml UNSCH PRN IV FLUSH WITH DIALYSIS 04/17/17 11:15 04/24/17 11:46 Ondansetron HCl (Zofran Inj) 4 mg UNSCH PRN IV WITH DIALYSIS 04/17/17 11:15 04/24/17 20:56 Epoetin [place]sten (Epogen Inj) 10,000 units UNSCH PRN IV WITH DIALYSIS 04/17/17 11:15 04/25/17 11:14 Gelatin (Gelfoam 12 Mm/7 Mm Top) 1 foam UNSCH PRN TOP SEE LABEL COMMENTS 04/17/17 11:15 04/25/17 11:14 Prochlorperazine Edisylate (Compazine Inj) 5 mg Q6H PRN IV PUSH nausea 04/17/17 20:15 04/25/17 11:20 Vancomycin HCl (VANCOMYCIN for oral use only) 500 mg QID PO 04/20/17 13:00 04/25/17 12:23 Lorazepam (Ativan Inj) 0.5 mg Q6H PRN IV PUSH NAUSEA OR VOMITING 04/21/17 01:00 04/25/17 11:26 Prednisone (Deltasone) 7.5 mg DAILY PO 04/20/17 19:30 04/25/17 12:24 Melatonin (Melatonin) 5 mg HS PRN PO INSOMNIA 04/21/17 14:30 04/23/17 20:30 Neomycin/ Polymyxin/ Bacitracin (Neosporin Oint) 1 applic Q12HR TOPICAL 04/21/17 21:00 04/25/17 09:43 Lorazepam (Ativan Inj) 0.5 mg HS PRN IV PUSH ANXIETY 04/21/17 20:15 04/23/17 20:29 Levothyroxine Sodium (Synthroid) 25 mcg DAILY@0600 PO 04/23/17 06:00 04/25/17 06:00 Metoprolol Tartrate (Lopressor) 50 mg HS PO 04/23/17 21:00 04/24/17 20:44 Metoprolol Tartrate 100 mg 100 mg DAILY PO 04/24/17 09:00 04/25/17 12:25 Amiodarone HCl 450 mg/Dextrose 250 ml @ 0 mls/hr CONTINUOUS IV 04/24/17 12:00 04/24/17 23:29 Dextrose 1,000 ml @ 30 mls/hr Q24H IV 04/24/17 18:30 04/25/17 12:29 Meropenem/Sodium Chloride (Merrem Inj/NS Inj) 100 ml @ 200 mls/hr Q12H IV 04/25/17 13:00 04/25/17 12:29 Objective Remarks GENERAL: Young female, chronically ill appearing, appears fatigued/lethargic but also moaning in pain. SKIN: Warm and dry. HEAD: Normocephalic. EYES: No injection or drainage. NECK: Supple, trachea midline. CARDIOVASCULAR: + S1/S2. RESPIRATORY: anterior miller with occasional rhonchi. GASTROINTESTINAL: Abdomen distended, tender. drains in place. EXTREMITIES: +anasarca. NEURO: awake but lethargic. Assessment/Plan Assessment 27-year-old female admitted on 04/15/2017 with fever, malaise, bloody discharge , diarrhea, pelvic cramping.. 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 Plan 1. monitor CBC, INR 2. 2 units platelets on standby in case of procedure today. would not recommend giving platelets unless undergoing surgery/procedure 3. monitor INR. unfortunately it does not appear to have responded to vitamin K given yesterday. 4. will defer to [employer] [facility]ISTANT/hospitalist service on whether or not to transfuse patient pRBC today. Marita Duran Apr 25, 2017 13:43
--- NOTE | 2017-04-25 15:13 | HHI.PR ---
Subjective Subjective Notes Underwent CT guided drainage right tubo-ovarian abscess yesterday with large amt purulent drainage removed. Persistent fevers overnight. She states that her abdominal pain is improved. Objective Vitals/I&O Vital Signs Date Time Temp Pulse Resp B/P Pulse Ox O2 Delivery O2 Flow Rate FiO2 04/25/17 08:32 98 Nasal Cannula 3.00 04/25/17 06:00 80 04/25/17 04:00 101.3 28 147/87 04/24/17 16:33 50 Labs Laboratory Tests Test 04/25/17 04/25/17 04/25/17 00:36 03:25 03:26 Blood Bank Comment White Blood Count 3.7 Red Blood Count 2.56 Hemoglobin 7.4 Hematocrit 22.6 Mean Corpuscular Volume 88.1 Mean Corpuscular Hemoglobin 28.9 Mean Corpuscular Hemoglobin 32.9 Concent Red Cell Distribution Width 22.6 Platelet Count 51 Mean Platelet Volume 8.7 Neutrophils (%) (Auto) 73.9 Lymphocytes (%) (Auto) 8.4 Monocytes (%) (Auto) 16.5 Eosinophils (%) (Auto) 0.4 Basophils (%) (Auto) 0.8 Neutrophils # (Auto) 2.7 Lymphocytes # (Auto) 0.3 Monocytes # (Auto) 0.6 Eosinophils # (Auto) 0.0 Basophils # (Auto) 0.0 CBC Comment AUTO DIFF Differential Comment AUTO DIFF CONFIRMED Platelet Estimate LOW Platelet Morphology Comment NORMAL Ovalocytes 1+ Prothrombin Time 17.4 Prothromb Time International 1.5 Ratio Activated Partial 43.6 Thromboplast Time Sodium Level 139 Potassium Level 3.7 Chloride Level 105 Carbon Dioxide Level 16.1 Anion Gap 18 Blood Urea Nitrogen 45 Creatinine 6.04 Estimat Glomerular Filtration 8 Rate Random Glucose 74 Calcium Level 8.1 Phosphorus Level 2.9 Total Bilirubin 1.9 Aspartate Amino Transf 11 (AST/SGOT) Alanine Aminotransferase 8 (ALT/SGPT) Alkaline Phosphatase 675 Total Protein 4.7 Albumin 2.0 Lactic Acid Level 0.4 Date/Time Procedure Status Source Growth 04/25/17 10:40 Aerobic Blood Culture Received Blood Other Pending 04/25/17 10:40 Anaerobic Blood Culture Received Blood Other Pending 04/24/17 14:20 Gram Stain - Final Resulted Abscess Other 04/24/17 14:20 Wound Culture - Preliminary Resulted Gram Negative Manjeet Radiology Last Impressions Chest X-Ray 04/24/17 0000 Signed Impressions: Service Date/Time: Monday, April 24, 2017 09:11 - CONCLUSION: 1. Increasing consolidation is on the right 2. Persistent mild interstitial edema present. Can Vidal MD FACR Abdomen/Pelvis CT 04/22/17 0000 Signed Impressions: Service Date/Time: Saturday, April 22, 2017 17:30 - CONCLUSION: The fluid collection adjacent to the left percutaneous drain has not changed since 2 days ago and multiseptated pyosalpinx on the right side has also not significantly changed. The rest of the examination has not changed. Tin Spencer MD Abscess Drainage CT 04/19/17 0957 Signed Impressions: Service Date/Time: Wednesday, April 19, 2017 11:12 - CONCLUSION: Uncomplicated CT guided drainage. Galdino Heredia MD Upper Extremity Ultrasound 04/19/17 0000 Signed Impressions: Service Date/Time: Wednesday, April 19, 2017 20:24 - CONCLUSION: No DVT in either upper extremity. Yusuf Jacob MD Pelvis Ultrasound 04/17/17 0000 Signed Impressions: Service Date/Time: Monday, April 17, 2017 11:32 - CONCLUSION: There are complex adnexal masses bilaterally and a normal left ovary is not visualized, however the right ovary is visualized and the above-mentioned adnexal mass appears to be separate from it. Possibility of pyosalpinx should be entertained although the left ovary is not seen and therefore tubo-ovarian abscess in the left ovary is not excluded. Tin Spencer MD Pelvis MRI 04/15/17 0000 Signed Impressions: Service Date/Time: Saturday, April 15, 2017 18:39 - CONCLUSION: 1. The uterus is normal in appearance without obvious endometrial thickening or mass. 2. Normal appearing ovaries are not visualized. In the adnexal region bilaterally dilated tortuous tubular structures are seen with a cystic complex appearance concerning for bilateral hydrosalpinx and tubo-ovarian abscess formation given the extensive inflammatory changes should be considered. 3. Abnormal circumferential bowel wall thickening involving the rectum. 4. Right lower quadrant transplant kidney with hydronephrosis. Moe Aragon MD Narrative Exam Gen: anxious, restless Abd: mild lower abd ttp, better than yesterday. John accordion drains with ss cloudy output. A/P Assessment and Plan 27-year-old female with bilateral large tubo-ovarian abscesses complicated by past surgical history of 5 renal transplants, end-stage renal disease, thrombocytopenia, respiratory distress, coagulopathy. S/p CT guided drainage second (right) abscess. A portion of abscess still present about 5x6 cm. Persistent fevers but overall no major change clinically. D/w Dr. Espinoza who will consider transvaginal drainage of remaining abscess. I agree if technically feasible this would be an appropriate approach. If she clinically worsens can pursue lap or open operation, although continued percutaneous drainage would be optimal at this point. I will follow peripherally and be available as needed. Karri Agee MD Apr 25, 2017 15:13
--- NOTE | 2017-04-25 17:00 | HHI.CCPN ---
Subjective Remarks/Hospital Course Hospital Course: 27-year-old female who has a chronic renal condition that caused early renal failure in her teens now status post 5 transplants, has had issues of chronic immunosuppresion, including rapid development of pneumonia and ARDS from a cold ; joint sepsis and recent left knee debridement, CVA and need for chronic anticoagulation and dialysis twice weekly in [place], presents today complaining of abdominal pain, fevers, and diarrhea. . Earlier this month, she called [facility] with extremely heavily bleeding despite placement of mirena IUD. This was so profound she bled to a hgb< 5 and required ablation and transfusion. She did well the first two weeks and then developed the above symptoms two days ago. She was started on by mouth antibiotics by her [facility] physician but her symptoms progressed and she presents to ED today after dialysis. MRI obtained today show unremarkable uterus BUT suggests bilateral TOAs which is unexpected. She is followed by [facility] with desire to avoid surgical intervention given co morbidities. Subjective: 04/16: complaints of abdominal pain not well-controlled with current percocet. hypoglycemic overnight requiring d50w x 1. hemodynamics stabilized. 04/17: abdominal pain is stable. off vasopressors. thrombocytopenic and anemic this morning requiring 2 units prbc and platelets. no evidence of DIC based on high fibrinogen. otherwise clinically stable. again discussed care with hollock maker, will plan for conservative management with iv abx and repeat imaging before pursuing surgical options, unless she clinically declines. 04/18: Overnight results patient's C. difficile positive. By mouth Flagyl discontinued. IV Flagyl initiated with by mouth vancomycin. ID following. Patient noted to be thrombocytopenic concern for possible surgical intervention secondary to bilateral adnexal masses. We'll transfuse 2 units of platelets this a.m., and insertion of Calvo catheter per INTERNET SALES CONSULTANT recommendations. Ofirmev added for 24 hours for pain control. 04/19: Improvement in pain control overnight. Patient remains thrombocytopenic 2 units of platelets provided. Hit panel ordered Patient to IR this afternoon for percutaneous drainage of tubo-ovarian abscesses. Transfer orders placed for [facility] transplant [place] for management by Dr. Dakota Harris, 04/20: The patient underwent CT-guided percutaneous drainage of left tubo- ovarian abscess yesterday with drainage of approximately 60 cc , overnight perc drain in situ an additional 50 cc. Patient complains of mild pain in the pelvic region, Ofirmev every 6 hours added to medication regimen in conjunction with Dilaudid. Patient scheduled for pelvic ultrasound this a.m.. Patient delay in transfer to transplant facility secondary to hematological concerns by facility. Optimization in process,the patient received 2 units of packed red blood cells, and 2 units of platelets overnight, subsequent platelet count continues to be 44. Additionally given this a.m. 2 units of Rh+ platelets to be transfused, patient received Rhogam and and is covered approximately several days ago. This was discussed with Dr. Hylton, pathology secondary to the unavailability of Rh- products. D dimer and fibrinogen labs ordered, hematology oncology consulted appreciate recommendations. 04/21: The patient was noted to have sustained ventricular bigeminy, but normotensive at 12 noon . Stat 12-lead EKG revealed QT prolongation, the patient was noted to have hypophosphatemia which was being replaced . The patient was also noted to have ICU delirium last night with escalation this afternoon. Patient noted not to have had any sleep for the last 48 hours, Ativan 0.5 mg 1 dose given. Olanzapine scheduled for tonight in addition melatonin if needed, to maintain sleep hygiene. No transfer to [facility] at this time, patient continues to have persistent nausea and vomiting, in the setting of QT prolongation. Unable to maintain a PO diet, to include liquids, now also concern for aspiration and patient's confused state. Renal formulation, PPN initiated. Consideration for Dobbhoff tube placement and initiation of tube feeds, but patient agitated, with persistent nausea and vomiting at this time. 04/22: The patient slept for the majority of the evening with 1 dose of Ativan, and melatonin. This a.m. patient remains confused, less agitation, negative ammonia level. Plan for maintenance of sleep hygiene at night, with stimulation during the day. Symptoms of nausea decreased, the patient was able to tolerate a partial sandwich last evening, she continues on PPN at 42 cc/ hour. Levothyroxine dosing resumed, patient tolerating scheduled PO this a.m.. CT scan scheduled per INTERNET SALES CONSULTANT for this a.m.. 04/23: ICU delirium resolved. The patient slept all night with the use of melatonin. Patient alert and oriented this morning. Complains of mild abdominal discomfort, VAS scale 5/10. Patient tolerating by mouth diet, PPN, lipids discontinued. The patient has intermittent periods of hypertension, to the sedative effects of clonidine discontinued. Metoprolol and Hydralazine added when necessary for hypertension. Heparin reinitiated yesterday, per heme on all a GI oncology recommendation. No platelet count 39,000, due to prothrombotic state increased risks will continue heparin subcutaneous twice a day. Discussed with Dr. Oscar 04/24: Had a fever with temperature 102 this morning. Respiratory rate increased to the 30s. ABG revealed metabolic acidosis/respiratory alkalosis with hypoxemia. Patient was maintaining O2 sats on 3 L nasal cannula. She was given 1 amp of bicarbonate and placed on Ventimask. Chest x-ray revealed right sided infiltrates raising suspicion for aspiration. Patient is otherwise awake and alert. She did have some sensation of shortness of breath. She also complained of nausea and was given Zofran 4 mg IV stat. 04/25: Continues to be febrile. Underwent CT-guided drainage of right sided pelvic collection this morning. Being followed by Gen. surgery/INTERNET SALES CONSULTANT/hematology as well as nephrology. Objective Vital Signs Date Time Temp Pulse Resp B/P Pulse Ox O2 Delivery O2 Flow Rate FiO2 04/25/17 08:32 98 Nasal Cannula 3.00 04/25/17 06:00 80 04/25/17 04:00 101.3 28 147/87 04/24/17 16:33 50 Intake and Output 04/24/17 04/24/17 04/25/17 08:00 16:00 00:00 Intake Total 898 ml 496 ml Output Total 450 ml 455 ml 265 ml Balance -450 ml 443 ml 231 ml Result Diagram: 04/25/17 0325 04/25/17 0325 Imaging Chest x-ray 04/24 which was personally reviewed: Diffuse right sided infiltrates noted Objective Remarks GENERAL: young chronically ill-appearing female, laying in bed in no acute distress SKIN: Warm and dry. Anasarca HEAD: Normocephalic. EYES: No scleral icterus. No injection or drainage. NECK: trachea midline. No JVD. CARDIOVASCULAR: Regular rate and rhythm. . RESPIRATORY: equal chest rise. on room air. Nasal cannula O2 at 2 L/m GASTROINTESTINAL: Abdomen soft, moderately tender to palpation over pelvis. only mildly diffusely tender in the upper quadrants. no guarding or rebound. nondistended. Left/ right percutaneous pelvic drain noted, no erythema, dressing C/D/I minimal serosanguineous fluid noted MUSCULOSKELETAL: No cyanosis, peripheral edema noted 1+, left arm 2+ peripheral edema. EXTREMITIES: No clubbing cyanosis. Left arm 1+ edema elevated. Left upper arm AV fistula noted Neuro: Drowsy but easily arousable. Follows commands. Verbalizes appropriately.. no focal deficits. Procedures 04/19 percutaneous tubo-ovarian abscesses via IR 04/20 pelvic ultrasound 04/20 CT abdomen and pelvis 04/[address] abdomen and pelvis A/P Assessment and Plan 27-year-old female with Abdominal pain- moderate - secondary to tubo-ovarian abscesses - oxycodone 10mg po q4h prn - dilaudid 0.5mg iv q3h prn Severe Sepsis Tubo-ovarian Abscess Enterobacter bacteremia C. diff colitis - f/u blood cultures- growing enterobacter -On IV cefepime switched to meropenem IV on 04/25, IV fluconazole, PO vancomycin per ID - Infectious disease following Dr. Cannon - [facility] following Dr. Dee -04/20 CT abdomen and pelvis bilobed right adnexal mass, diverticulosis, etc. left adnexa, small bilateral pleural effusions, mild abdominal ascites, with slight anasarca - 04/19 S/P percutaneous drainage left tubo-ovarian abscess- Enterobacter cloacae -04/[address] abdomen bilateral pleural effusions with right basilar consolidation. Adnexal mass filled with pus 10.9 cm, splenomegaly 04/25: Status post or cutaneous drainage of right sided tubo-ovarian collection with removal of 1 60 cc of purulent material which was sent for culture. Rosie wound infection -- unclear if colonization or infection, but immunocompromised and clinically toxic appearing -- fluconazole, renally adjusted iv. -- ID following Hypoglycemia- resolved. -- PPN x 1 day. Nausea resolved. Patient tolerating 50% of diet. PPN lipids discontinued -- glucose checks q4h End-stage renal disease - Hemodialysis per nephrology - consult nephrology- Dr. Pichardo following Hypothyroidism -- Obtain TSH level, Free T4 -Levothyroxin 88 mcgs/day Anemia secondary to critical illness and ESRD- -- received 1 unit prbc 04/16 -- 2 units prbc 04/17, 2 units PRBC 04/19 -- goal hgb > 7 Thrombocytopenia -- likely secondary to sepsis. low probability HIT 04/17 1 u Plts -- 2 units platelets transfused today given her anemia and critical illness. --04/19 4 units Platelets (Rh -), 04/20 2 units (Rh +) RhoGAM previously given. Discussion with Dr. Hylton pathology patient does not plan on in the near future. Patient remains thrombocytopenic. -- goal plt > 50k. --Hematology/oncology following Dr. Peralta, follow-up recommendations. Heparin 5000 units subcutaneous 2 continue twice a day, per hematology and oncology. Concern for thrombosis -04/19- HIT panel negative -04/24 platelet count 43,000. Discussed with Dr. Espinoza who requested platelet transfusion for possible percutaneous drainage/surgery. Transfuse platelets on 04/24. Ventricular bigeminy-resolved QT prolongation-resolved -QT interval within normal limits -Replete electrolytes as needed Hypertension - Discontinue Clonidine -Metoprolol, hydralazine when necessary Mild protein calorie malnutrition Persistent nausea and vomiting -04/23 PPN, lipids discontinued -Continue to encourage PO intake as tolerated, renal diet -Zofran when necessary for nausea ICU Delirium-resolved Toxic metabolic encephalopathy-resolved Altered mental status-resolved -Maintain sleep hygiene, out of bed to chair during the day -Melatonin 5 mg @ HS PRN for insomnia -Monitor electrolytes MSK: - Left arm peripheral edema 2+ - 04/19 venous Doppler ultrasound bilateral upper extremities, negative for DVT -Maintain elevation of left arm -Healing surgical wound left knee-line Neosporin ointment when necessary GERD Nausea and vomiting - Pantoprazole -Zofran-on hold secondary to prolongation of QT Hypophosphatemia -Repleted per ICU electrolyte replacement protocol, DVT GI prophylaxis - Teds SCDs - Pantoprazole Dr. Espinoza deciding regarding transvaginal drainage of residual fluid collection. General surgery following as well. Tim Pearson MD Apr 25, 2017 17:00
[2017-04-25] MEDS: AMIODARONE INJ 450 MG in DEXTROSE 5% IN WATE(EXCEL) INJ 241 ML IV SCH ×2 (17:32)
--- NOTE | 2017-04-25 18:19 | HHI.NPPN ---
Subjective General Problems: Anemia, Hypertension Renal Failure: End Stage Renal Disease History of Present Illness 27-year-old female with past medical history of hypertension, hypothyroidism, gastroesophageal reflux disease, history of chronic anemia, end-stage renal disease on hemodialysis two times per week, history of multiple renal transplants in the past who was admitted because of heavy vaginal bleeding after she had an IUD placed. I was called to see the patient for the management of dialysis. Additional Remarks Patient seen after HD, feeling better, breathing is better. Review of Systems General Constitutional: Fatigue Cardiovascular Cardiac: MUIR Gastrointestinal Gastrointestinal: Abdominal Pain, Nausea & Vomiting, Diarrhea Objective Data Data 04/24/17 04/25/17 18:59 06:59 Intake Total 898 ml 1145 ml Output Total 455 ml 500 ml Balance 443 ml 645 ml Intake Oral 0 ml 120 ml IV Total 898 ml 1025 ml Output Urine Total 250 ml 450 ml Drainage Total 205 ml 50 ml # Bowel Movements 1 1 Vital Signs Date Time Temp Pulse Resp B/P Pulse Ox O2 Delivery O2 Flow Rate FiO2 04/25/17 18:00 75 04/25/17 16:00 99.2 77 30 119/78 96 04/25/17 16:00 77 04/25/17 14:00 98 04/25/17 12:00 97 04/25/17 12:00 99.5 97 24 125/79 100 04/25/17 10:00 86 04/25/17 08:32 98 Nasal Cannula 3.00 04/25/17 08:00 81 04/25/17 08:00 100.2 81 14 148/90 98 04/25/17 06:00 80 04/25/17 04:00 101.3 83 28 147/87 94 04/25/17 04:00 83 04/25/17 02:00 79 04/25/17 00:00 102.1 89 25 145/86 100 04/25/17 00:00 89 04/24/17 22:00 86 04/24/17 20:00 101.2 86 28 145/91 99 04/24/17 20:00 82 -: 04/25/17 0325 04/25/17 0325 Microbiology 04/25/17 Aerobic Blood Culture, Received Pending 04/25/17 Anaerobic Blood Culture, Received Pending 04/25/17 Aerobic Blood Culture, Received Pending 04/25/17 Anaerobic Blood Culture, Received Pending Physical Exam General Appearance: Pale Pulmonary Resp Exam: Breath Sounds Equal, Decreased Bases, Diminished Breath Sounds Cardiology CV Exam: Arrhythmia Gastrointestinal/Abdomen GI Exam: Soft, Positive Bowel Movement, Non-Distended Extremeties Extremities Exam: Trace Edema Neurologic Neuro Exam: Obtunded Assessment/Plan Assessment Summary: Anemia of CKD, Hypertension, End Stage Renal Disease, Transplant Kidney Status Problem List: (1) Hypertension (2) Hypothyroidism (3) History of CVA (cerebrovascular accident) (4) Renal transplant failure and rejection (5) End stage chronic kidney disease (6) Anemia (7) Sepsis Plan History of kidney transplant since age 4 first from the father subsequently mother these lasted for about 15 years and afterwards she received a cadaveric kidney transplant and she received 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 ID is following. CT noted. Now has drain inserted. Culture growing Enterobacter on prednisone 7.5 mg daily, got the injection of Nulojix on 04/20. Develop RVR, and now HR and BP better. HD done and 4 liters removed. Will start HD now 3 times a week. TPN stopped, to encourage oral intake. Problem Qualifiers (1) Hypertension: Qualified Code: I10 - Essential hypertension Veronica Pichardo MD Apr 25, 2017 18:19
[2017-04-25] MEDS: METOPROLOL TARTRATE 50 MG TAB PO SCH (21:18)
[2017-04-26] VITALS (14 sets, daily range): BP systolic 113–152; BP diastolic 77–99; PULSE 54–109; RESP 14–23; TEMP 97.8–98.6; O2SAT 95–100
[2017-04-26] MEDS: PROCHLORPERAZINE INJ 10 MG/2 ML VIAL IV PUSH PRN (00:36)
[2017-04-26] MEDS: INSULIN NovoLIN REGULAR SUPPLEMENTAL SCALE SQ SCH ×5 (04:00→20:00)
[2017-04-26] MEDS: CHLORHEXIDINE GLUCONATE 2 % 1 PACK (2 CLOTHS) TOP SCH (04:00)
[2017-04-26] MEDS: HYDROmorphone HCL PF 1 MG/ML VIAL IV PUSH PRN ×5 (04:39→21:30)
[2017-04-26] MEDS: LEVOTHYROXINE SODIUM 25 MCG TAB PO SCH (04:40)
[2017-04-26 07:19] LABS: AUTOMATED NEUTROPHIL # 3.3 TH/MM3 (1.8-7.7); BASOPHIL % 1.2 % (0.0-2.0); EOSINOPHIL % 0.7 % (0.0-4.0); HEMATOCRIT 22.5 % (35.0-46.0); LYMPH % 5.1 % (9.0-44.0); LYMPHOCYTE # 0.2 TH/MM3 (1.0-4.8); MEAN CORPUSCULAR HEMOGLOBIN 29.2 PG (27.0-34.0); MEAN CORPUSCULAR HGB CONC 33.6 % (32.0-36.0); MONO % 13.5 % (0.0-8.0); NEUT % 79.5 % (16.0-70.0); PLATELET COUNT 50 TH/MM3 (150-450); RED BLOOD COUNT 2.58 MIL/MM3 (4.00-5.30); RED CELL DISTRIBUTION WIDTH 22.4 % (11.6-17.2); WHITE BLOOD COUNT 4.1 TH/MM3 (4.0-11.0)
[2017-04-26 07:21] LABS: HEMO FLAGS AUTO DIFF
[2017-04-26 07:43] LABS: ANION GAP 14 MEQ/L (5-15); AST (GOT) 11 U/L (15-37); BICARBONATE 23.7 MEQ/L (21.0-32.0); BLOOD UREA NITROGEN 36 MG/DL (7-18); CHLORIDE 98 MEQ/L (98-107); GLOMERULAR FILTRATION RATE 11 ML/MIN (>89); SODIUM (NA) 136 MEQ/L (136-145)
[2017-04-26 07:50] LABS: ALKALINE PHOSPHATASE 579 U/L (45-117); ALT (GPT) 7 U/L (10-53); TOTAL BILIRUBIN ADULT 1.5 MG/DL (0.2-1.0)
[2017-04-26 07:55] LABS: OVALOCYTES 1+ (NORMAL)
[2017-04-26 07:56] LABS: PLATELET ESTIMATE SMEAR LOW (NORMAL); PLATELET MORPHOLOGY NORMAL (NORMAL); SCAN/DIFF AUTO DIFF CONFIRMED
--- NOTE | 2017-04-26 08:17 | HHI.PR ---
Subjective Remarks States she is in pain everywhere. Moaning while drifting in and out of sleep can't describe further Objective - Vital Signs Date Time Temp Pulse Resp B/P Pulse Ox O2 Delivery O2 Flow Rate FiO2 04/26/17 06:00 91 04/26/17 04:00 109 04/26/17 04:00 97.9 106 23 113/77 100 04/26/17 02:00 68 04/26/17 00:00 67 04/26/17 00:00 97.8 66 14 122/82 95 04/26/17 00:00 68 04/25/17 22:00 69 04/25/17 20:53 98 04/25/17 20:00 97.8 73 22 133/91 96 04/25/17 20:00 68 04/25/17 18:00 75 04/25/17 16:00 99.2 77 30 119/78 96 04/25/17 16:00 77 04/25/17 14:00 98 04/25/17 12:00 97 04/25/17 12:00 99.5 97 24 125/79 100 04/25/17 10:00 86 04/25/17 08:32 98 Nasal Cannula 3.00 I/O 04/25/17 04/25/17 04/25/17 04/26/17 04/26/17 04/26/17 06:59 14:59 22:59 06:59 14:59 22:59 Intake Total 649 ml 1112 ml 360 ml 329 ml Output Total 235 ml 4345 ml 125 ml 110 ml Balance 414 ml -3233 ml 235 ml 219 ml Intake Oral 60 ml 200 ml 50 ml IV Total 589 ml 912 ml 310 ml 329 ml Output Urine Total 200 ml 265 ml 100 ml 100 ml Drainage Total 35 ml 80 ml 25 ml 10 ml Hemodialysis 4000 ml # Bowel Movements 1 1 0 0 Result Diagram: 04/26/17 0620 04/26/17 0620 Other Results indices stable small amount clear urine from may 15 from right drain and 10 from left drain may remove left drain Objective Remarks pain manangement and supportive care] needs CT of pelvis for interval change possibe left drain out possible needlw biopsy of third Ayala Cruz MD Apr 26, 2017 08:17
[2017-04-26] MEDS: AMIODARONE INJ 450 MG in DEXTROSE 5% IN WATE(EXCEL) INJ 241 ML IV SCH ×2 (08:29)
[2017-04-26 09:04] LABS: INTERNATIONAL NORMALIZED RATIO 1.3 RATIO; PROTHROMBIN TIME - PATIENT 14.9 SEC (9.8-11.6)
[2017-04-26] MEDS: FLUCONAZOLE 200 MG PREMIX BAG 100 ML IV SCH (09:51)
[2017-04-26] MEDS: NEOMYCIN/POLYMYXIN/BACITRACIN OINT 15 GM TUBE TOPICAL SCH ×2 (09:52→21:00)
[2017-04-26] MEDS: METOPROLOL TARTRATE 100 MG TAB PO SCH (09:53)
[2017-04-26] MEDS: HEPARIN SODIUM - SQ 10,000 UNITS/ML VIAL SQ SCH ×2 (09:53→21:30)
[2017-04-26] MEDS: DULoxetine HCl DR 30 MG CAP PO SCH (09:53)
[2017-04-26] MEDS: DOCUSATE SODIUM 50 MG/SENNA 8.6 MG TAB PO SCH ×2 (09:53→21:31)
[2017-04-26] MEDS: VANCOMYCIN 500 MG VIAL (FOR ORAL USE ONLY) PO SCH ×4 (09:53→21:29)
[2017-04-26] MEDS: CHOLECALCIFEROL (VIT D3) 1000 UNIT TAB PO SCH (09:53)
[2017-04-26] MEDS: predniSONE 5 MG TAB PO SCH (09:53)
[2017-04-26] MEDS: DRONEDARONE 400 MG TAB PO SCH ×2 (09:54→21:31)
[2017-04-26] MEDS: FAMOTIDINE 20 MG/2 ML VIAL IV PUSH SCH ×2 (09:54→21:29)
[2017-04-26] MEDS: ASPIRIN EC 81 MG TABEC PO SCH (09:54)
[2017-04-26] MEDS: SODIUM CHLORIDE 0.9% FLUSH 10 ML FLUSH SCH ×2 (09:54→21:32)
--- NOTE | 2017-04-26 11:14 | PD.ONC.PN ---
Subjective Subjective Remarks Afebrile overnight. Patient feeling better today. Mother at bedside. Having one of her drains removed today. Objective Data Date Time Temp Pulse Resp B/P Pulse Ox O2 Delivery O2 Flow Rate FiO2 04/26/17 06:00 91 04/26/17 04:00 109 04/26/17 04:00 97.9 106 23 113/77 100 04/26/17 02:00 68 04/26/17 00:00 67 04/26/17 00:00 97.8 66 14 122/82 95 04/26/17 00:00 68 04/25/17 22:00 69 04/25/17 20:53 98 04/25/17 20:00 97.8 73 22 133/91 96 04/25/17 20:00 68 04/25/17 18:00 75 04/25/17 16:00 99.2 77 30 119/78 96 04/25/17 16:00 77 04/25/17 14:00 98 04/25/17 12:00 97 04/25/17 12:00 99.5 97 24 125/79 100 04/26/17 04/26/17 04/26/17 07:00 15:00 23:00 Intake Total 329 ml Output Total 110 ml Balance 219 ml Result Diagram: 04/26/1720 04/26/17 0620 Laboratory Results Laboratory Tests Test 04/26/17 04/26/17 06:20 08:30 White Blood Count 4.1 TH/MM3 Red Blood Count 2.58 MIL/MM3 Hemoglobin 7.6 GM/DL Hematocrit 22.5 % Mean Corpuscular Volume 87.0 FL Mean Corpuscular Hemoglobin 29.2 PG Mean Corpuscular Hemoglobin 33.6 % Concent Red Cell Distribution Width 22.4 % Platelet Count 50 TH/MM3 Mean Platelet Volume 9.6 FL Neutrophils (%) (Auto) 79.5 % Lymphocytes (%) (Auto) 5.1 % Monocytes (%) (Auto) 13.5 % Eosinophils (%) (Auto) 0.7 % Basophils (%) (Auto) 1.2 % Neutrophils # (Auto) 3.3 TH/MM3 Lymphocytes # (Auto) 0.2 TH/MM3 Monocytes # (Auto) 0.6 TH/MM3 Eosinophils # (Auto) 0.0 TH/MM3 Basophils # (Auto) 0.0 TH/MM3 CBC Comment AUTO DIFF Differential Comment AUTO DIFF CONFIRMED Platelet Estimate LOW Platelet Morphology Comment NORMAL Ovalocytes 1+ Sodium Level 136 MEQ/L Potassium Level 4.0 MEQ/L Chloride Level 98 MEQ/L Carbon Dioxide Level 23.7 MEQ/L Anion Gap 14 MEQ/L Blood Urea Nitrogen 36 MG/DL Creatinine 4.69 MG/DL Estimat Glomerular Filtration 11 ML/MIN Rate Random Glucose 97 MG/DL Calcium Level 8.2 MG/DL Total Bilirubin 1.5 MG/DL Aspartate Amino Transf 11 U/L (AST/SGOT) Alanine Aminotransferase 7 U/L (ALT/SGPT) Alkaline Phosphatase 579 U/L Total Protein 4.8 GM/DL Albumin 2.0 GM/DL Prothrombin Time 14.9 SEC Prothromb Time International 1.3 RATIO Ratio Activated Partial 47.0 SEC Thromboplast Time Culture Results Microbiology Date/Time Procedure Status Source Growth 04/24/17 14:20 Gram Stain - Final Complete Abscess Other 04/24/17 14:20 Wound Culture - Final Complete Enterobacter Cloacae 04/25/17 10:40 Aerobic Blood Culture Received Blood Other Pending 04/25/17 10:40 Anaerobic Blood Culture Received Blood Other Pending 04/25/17 10:40 Aerobic Blood Culture Received Blood Other Pending 04/25/17 10:40 Anaerobic Blood Culture Received Blood Other Pending Administered Medications Medications (Trade) Dose Ordered Sig/Mega Route PRN Reason Start Time Stop Time Status Last Admin Dose Admin Aspirin (Ecotrin Ec) 81 mg DAILY PO 04/16/17 09:00 04/26/17 09:54 Dronedarone (Multaq) 400 mg BID PO 04/15/17 21:00 04/26/17 09:54 Cholecalciferol (Vitamin D3) 2,000 units DAILY PO 04/16/17 09:00 04/26/17 09:53 Sodium Chloride (NS Flush) 2 ml UNSCH PRN .XX FLUSH AFTER USING IV ACCESS 04/15/17 19:00 04/24/17 11:46 Sodium Chloride (NS Flush) 2 ml BID .XX 04/15/17 21:00 04/26/17 09:54 Acetaminophen (Tylenol) 650 mg Q6H PRN PO PAIN 1-10 AND/OR FEVER >101F 04/15/17 19:00 04/17/17 23:57 Ondansetron HCl (Zofran Inj) 4 mg Q6H PRN IV NAUSEA OR VOMITING 04/15/17 19:00 Hold 04/21/17 05:27 Heparin Sodium (Porcine) (Heparin Inj) 5,000 units Q12H SQ 04/15/17 21:00 04/26/17 09:53 Chlorhexidine Gluconate (Chlorhexidine 2% Cloth) Taper DAILY@04 TOP 04/16/17 04:00 04/12/18 03:59 04/24/17 04:00 Senna/Docusate Sodium 1 tab 1 tab BID PO 04/15/17 21:00 04/26/17 09:53 Fluconazole/ Sodium Chloride (Diflucan 200 Mg Premix Bag) 100 ml @ 100 mls/hr Q24H IV 04/16/17 11:00 04/26/17 09:51 Oxycodone HCl (Roxicodone) 10 mg Q4H PRN PO pain 1-6 04/16/17 07:45 04/25/17 05:53 Hydromorphone HCl (Dilaudid Pf Inj) 0.5 mg Q3H PRN IV PUSH pain 7-10 or not taking po 04/16/17 07:45 04/26/17 10:09 Dextrose (D50w (Vial) Inj) 25 ml UNSCH PRN IV PUSH HYPOGLYCEMIA-SEE COMMENTS 04/16/17 07:45 04/25/17 11:36 Famotidine 10 mg 10 mg Q12HR IV PUSH 04/16/17 21:00 04/26/17 09:54 Sodium Chloride (NS 1000 ml Inj) 1,000 ml @ 0 mls/hr Q0M PRN IV For Prime & Rinse Back 04/17/17 11:10 04/25/17 11:14 Sodium Chloride (NS Flush) 5 ml UNSCH PRN IV FLUSH WITH DIALYSIS 04/17/17 11:15 04/24/17 11:46 Ondansetron HCl (Zofran Inj) 4 mg UNSCH PRN IV WITH DIALYSIS 04/17/17 11:15 04/24/17 20:56 Epoetin Torsten (Epogen Inj) 10,000 units UNSCH PRN IV WITH DIALYSIS 04/17/17 11:15 04/25/17 11:14 Gelatin (Gelfoam 12 Mm/7 Mm Top) 1 foam UNSCH PRN TOP SEE LABEL COMMENTS 04/17/17 11:15 04/25/17 11:14 Prochlorperazine Edisylate (Compazine Inj) 5 mg Q6H PRN IV PUSH nausea 04/17/17 20:15 04/26/17 00:36 Vancomycin HCl (VANCOMYCIN for oral use only) 500 mg QID PO 04/20/17 13:00 04/26/17 09:53 Lorazepam (Ativan Inj) 0.5 mg Q6H PRN IV PUSH NAUSEA OR VOMITING 04/21/17 01:00 04/25/17 11:26 Prednisone (Deltasone) 7.5 mg DAILY PO 04/20/17 19:30 04/26/17 09:53 Melatonin (Melatonin) 5 mg HS PRN PO INSOMNIA 04/21/17 14:30 04/23/17 20:30 Neomycin/ Polymyxin/ Bacitracin (Neosporin Oint) 1 applic Q12HR TOPICAL 04/21/17 21:00 04/26/17 09:52 Lorazepam (Ativan Inj) 0.5 mg HS PRN IV PUSH ANXIETY 04/21/17 20:15 04/23/17 20:29 Levothyroxine Sodium (Synthroid) 25 mcg DAILY@0600 PO 04/23/17 06:00 04/26/17 04:40 Metoprolol Tartrate (Lopressor) 50 mg HS PO 04/23/17 21:00 04/25/17 21:18 Metoprolol Tartrate 100 mg 100 mg DAILY PO 04/24/17 09:00 04/26/17 09:53 Amiodarone HCl 450 mg/Dextrose 250 ml @ 0 mls/hr CONTINUOUS IV 04/24/17 12:00 04/26/17 08:29 Dextrose 1,000 ml @ 30 mls/hr Q24H IV 04/24/17 18:30 04/25/17 12:29 Meropenem/Sodium Chloride (Merrem Inj/NS Inj) 100 ml @ 200 mls/hr Q12H IV 04/25/17 13:00 04/25/17 23:53 Duloxetine HCl (Cymbalta Dr) 30 mg DAILY PO 04/26/17 09:00 04/26/17 09:53 Objective Remarks GENERAL: chronically ill young female upright in bed, calm appearing, with mother at bedside. SKIN: Warm and dry. HEAD: Normocephalic. EYES: No injection or drainage. NECK: Supple, trachea midline. CARDIOVASCULAR: + S1/S2. RESPIRATORY: anterior miller clear. GASTROINTESTINAL: Abdomen distended, tender. drains in place. EXTREMITIES: +anasarca. NEURO: awake and alert, normal speech Assessment/Plan Assessment 27-year-old female admitted on 04/15/2017 with fever, malaise, bloody discharge , diarrhea, pelvic cramping. Hematology consulted for pancytopenia. 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 Plan 1. platelets remaining around 50K. would not recommend transfusion unless undergoing procedure. will defer to AUTOMOBILE OR TRUCK RENTAL DISPATCHER/vibrator equipment tester on whether to transfuse pRBC 2. monitor INR. Marita Duran Apr 26, 2017 11:14
[2017-04-26] MEDS: MEROPENEM INJ 500 MG in SODIUM CHLORIDE 0.9% INJ 100 ML IV SCH (12:43)
[2017-04-26 13:51] LABS: BETA2 GLYCOPROTEIN I AB IGA LESS THAN 9.0 SAU (< OR = 20)
--- NOTE | 2017-04-26 15:17 | HHI.CCPN ---
Subjective Remarks/Hospital Course Hospital Course: 27-year-old female who has a chronic renal condition that caused early renal failure in her teens now status post 5 transplants, has had issues of chronic immunosuppresion, including rapid development of pneumonia and ARDS from a cold ; joint sepsis and recent left knee debridement, CVA and need for chronic anticoagulation and dialysis twice weekly in [place], presents today complaining of abdominal pain, fevers, and diarrhea. . Earlier this month, she called ELECTRICAL EXPERIMENTAL MECHANIC with extremely heavily bleeding despite placement of mirena IUD. This was so profound she bled to a hgb< 5 and required ablation and transfusion. She did well the first two weeks and then developed the above symptoms two days ago. She was started on by mouth antibiotics by her ELECTRICAL EXPERIMENTAL MECHANIC physician but her symptoms progressed and she presents to ED today after dialysis. MRI obtained today show unremarkable uterus BUT suggests bilateral TOAs which is unexpected. She is followed by ELECTRICAL EXPERIMENTAL MECHANIC with desire to avoid surgical intervention given co morbidities. Subjective: 04/16: complaints of abdominal pain not well-controlled with current percocet. hypoglycemic overnight requiring d50w x 1. hemodynamics stabilized. 04/17: abdominal pain is stable. off vasopressors. thrombocytopenic and anemic this morning requiring 2 units prbc and platelets. no evidence of DIC based on high fibrinogen. otherwise clinically stable. again discussed care with energy sales broker, will plan for conservative management with iv abx and repeat imaging before pursuing surgical options, unless she clinically declines. 04/18: Overnight results patient's C. difficile positive. By mouth Flagyl discontinued. IV Flagyl initiated with by mouth vancomycin. ID following. Patient noted to be thrombocytopenic concern for possible surgical intervention secondary to bilateral adnexal masses. We'll transfuse 2 units of platelets this a.m., and insertion of Calvo catheter per ROSS LIFT OPERATOR recommendations. Ofirmev added for 24 hours for pain control. 04/19: Improvement in pain control overnight. Patient remains thrombocytopenic 2 units of platelets provided. Hit panel ordered Patient to IR this afternoon for percutaneous drainage of tubo-ovarian abscesses. Transfer orders placed for [facility] transplant [place] for management by Dr. Dakota Harris, 04/20: The patient underwent CT-guided percutaneous drainage of left tubo- ovarian abscess yesterday with drainage of approximately 60 cc , overnight perc drain in situ an additional 50 cc. Patient complains of mild pain in the pelvic region, Ofirmev every 6 hours added to medication regimen in conjunction with Dilaudid. Patient scheduled for pelvic ultrasound this a.m.. Patient delay in transfer to transplant facility secondary to hematological concerns by facility. Optimization in process,the patient received 2 units of packed red blood cells, and 2 units of platelets overnight, subsequent platelet count continues to be 44. Additionally given this a.m. 2 units of Rh+ platelets to be transfused, patient received Rhogam and and is covered approximately several days ago. This was discussed with Dr. Hylton, pathology secondary to the unavailability of Rh- products. D dimer and fibrinogen labs ordered, hematology oncology consulted appreciate recommendations. 04/21: The patient was noted to have sustained ventricular bigeminy, but normotensive at 12 noon . Stat 12-lead EKG revealed QT prolongation, the patient was noted to have hypophosphatemia which was being replaced . The patient was also noted to have ICU delirium last night with escalation this afternoon. Patient noted not to have had any sleep for the last 48 hours, Ativan 0.5 mg 1 dose given. Olanzapine scheduled for tonight in addition melatonin if needed, to maintain sleep hygiene. No transfer to [facility] at this time, patient continues to have persistent nausea and vomiting, in the setting of QT prolongation. Unable to maintain a PO diet, to include liquids, now also concern for aspiration and patient's confused state. Renal formulation, PPN initiated. Consideration for Dobbhoff tube placement and initiation of tube feeds, but patient agitated, with persistent nausea and vomiting at this time. 04/22: The patient slept for the majority of the evening with 1 dose of Ativan, and melatonin. This a.m. patient remains confused, less agitation, negative ammonia level. Plan for maintenance of sleep hygiene at night, with stimulation during the day. Symptoms of nausea decreased, the patient was able to tolerate a partial sandwich last evening, she continues on PPN at 42 cc/ hour. Levothyroxine dosing resumed, patient tolerating scheduled PO this a.m.. CT scan scheduled per ROSS LIFT OPERATOR for this a.m.. 04/23: ICU delirium resolved. The patient slept all night with the use of melatonin. Patient alert and oriented this morning. Complains of mild abdominal discomfort, VAS scale 5/10. Patient tolerating by mouth diet, PPN, lipids discontinued. The patient has intermittent periods of hypertension, to the sedative effects of clonidine discontinued. Metoprolol and Hydralazine added when necessary for hypertension. Heparin reinitiated yesterday, per heme on all a GI oncology recommendation. No platelet count 39,000, due to prothrombotic state increased risks will continue heparin subcutaneous twice a day. Discussed with Dr. Oscar 04/24: Had a fever with temperature 102 this morning. Respiratory rate increased to the 30s. ABG revealed metabolic acidosis/respiratory alkalosis with hypoxemia. Patient was maintaining O2 sats on 3 L nasal cannula. She was given 1 amp of bicarbonate and placed on Ventimask. Chest x-ray revealed right sided infiltrates raising suspicion for aspiration. Patient is otherwise awake and alert. She did have some sensation of shortness of breath. She also complained of nausea and was given Zofran 4 mg IV stat. 04/25: Continues to be febrile. Underwent CT-guided drainage of right sided pelvic collection this morning. Being followed by Gen. surgery/ROSS LIFT OPERATOR/hematology as well as nephrology. 04/26: Feels a little better. Continues to have lower abdominal pain. Remains on nasal cannula. Has percutaneous drains bilaterally to drain bilateral tubal ovarian abscesses and is being followed by Dr. Espinoza. Objective Vital Signs Date Time Temp Pulse Resp B/P Pulse Ox O2 Delivery O2 Flow Rate FiO2 04/26/17 13:18 98 Nasal Cannula 2.00 04/26/17 08:00 98.4 101 14 114/77 04/24/17 16:33 50 Intake and Output 04/25/17 04/25/17 04/26/17 08:00 16:00 00:00 Intake Total 649 ml 1112 ml 360 ml Output Total 235 ml 4345 ml 125 ml Balance 414 ml -3233 ml 235 ml Result Diagram: 04/26/17 0620 04/26/17 0620 Other Results Microbiology Date/Time Procedure Status Source Growth 04/24/17 14:20 Gram Stain - Final Complete Abscess Other 04/24/17 14:20 Wound Culture - Final Complete Enterobacter Cloacae Imaging Chest x-ray 04/24 which was personally reviewed: Diffuse right sided infiltrates noted Objective Remarks GENERAL: young chronically ill-appearing female, laying in bed in no acute distress SKIN: Warm and dry. Anasarca HEAD: Normocephalic. EYES: No scleral icterus. No injection or drainage. NECK: trachea midline. No JVD. CARDIOVASCULAR: Regular rate and rhythm. . RESPIRATORY: equal chest rise. on room air. Nasal cannula O2 at 2 L/m GASTROINTESTINAL: Abdomen soft, moderately tender to palpation over pelvis. only mildly diffusely tender in the upper quadrants. no guarding or rebound. nondistended. Left/ right percutaneous pelvic drain noted, no erythema, dressing C/D/I minimal serosanguineous fluid noted MUSCULOSKELETAL: No cyanosis, peripheral edema noted 1+, left arm 2+ peripheral edema. EXTREMITIES: No clubbing cyanosis. Left arm 1+ edema elevated. Left upper arm AV fistula noted Neuro: Drowsy but easily arousable. Follows commands. Verbalizes appropriately.. no focal deficits. Procedures 04/19 percutaneous tubo-ovarian abscesses via IR 04/20 pelvic ultrasound 04/20 CT abdomen and pelvis 04/[address] abdomen and pelvis A/P Assessment and Plan 27-year-old female with Abdominal pain- moderate - secondary to tubo-ovarian abscesses - oxycodone 10mg po q4h prn - dilaudid 0.5mg iv q3h prn Severe Sepsis Tubo-ovarian Abscess Enterobacter bacteremia C. diff colitis - f/u blood cultures- growing enterobacter -On IV cefepime switched to meropenem IV on 04/25, IV fluconazole, PO vancomycin per ID - Infectious disease following Dr. Cannon - ELECTRICAL EXPERIMENTAL MECHANIC following Dr. Dee -04/20 CT abdomen and pelvis bilobed right adnexal mass, diverticulosis, etc. left adnexa, small bilateral pleural effusions, mild abdominal ascites, with slight anasarca - 04/19 S/P percutaneous drainage left tubo-ovarian abscess- Enterobacter cloacae -04/[address] abdomen bilateral pleural effusions with right basilar consolidation. Adnexal mass filled with pus 10.9 cm, splenomegaly 04/25: Status post or cutaneous drainage of right sided tubo-ovarian collection with removal of 160 cc of purulent material which was sent for culture. Rosie wound infection -- unclear if colonization or infection, but immunocompromised and clinically toxic appearing -- fluconazole, renally adjusted iv. -- ID following Hypoglycemia- resolved. -- PPN x 1 day. Nausea resolved. Patient tolerating 50% of diet. PPN lipids discontinued -- glucose checks q4h End-stage renal disease - Hemodialysis per nephrology - consult nephrology- Dr. Pichardo following Hypothyroidism -- Obtain TSH level, Free T4 -Levothyroxin 88 mcgs/day Anemia secondary to critical illness and ESRD- -- received 1 unit prbc 04/16 -- 2 units prbc 04/17, 2 units PRBC 04/19 -- goal hgb > 7 Thrombocytopenia -- likely secondary to sepsis. low probability HIT 04/17 1 u Plts ----04/19 4 units Platelets (Rh -), 04/20 2 units (Rh +) RhoGAM previously given. Discussion with Dr. Hylton pathology patient does not plan on in the near future. Patient remains thrombocytopenic. -- goal plt > 50k. --Hematology/oncology following Dr. Peralta, follow-up recommendations. Heparin 5000 units subcutaneous 2 continue twice a day, per hematology and oncology. Concern for thrombosis -04/19- HIT panel negative -04/24 platelet count 43,000. On 04/[address] Espinoza who requested platelet transfusion for possible percutaneous drainage/surgery. Transfuse platelets on 04/24. Ventricular bigeminy-resolved QT prolongation-resolved -QT interval within normal limits -Replete electrolytes as needed Hypertension - Discontinue Clonidine -Metoprolol, hydralazine when necessary Mild protein calorie malnutrition Persistent nausea and vomiting -04/23 PPN, lipids discontinued -Continue to encourage PO intake as tolerated, renal diet -Zofran when necessary for nausea ICU Delirium-resolved Toxic metabolic encephalopathy-resolved Altered mental status-resolved -Maintain sleep hygiene, out of bed to chair during the day -Melatonin 5 mg @ HS PRN for insomnia -Monitor electrolytes MSK: - Left arm peripheral edema 2+ - 04/19 venous Doppler ultrasound bilateral upper extremities, negative for DVT -Maintain elevation of left arm -Healing surgical wound left knee-line Neosporin ointment when necessary GERD Nausea and vomiting - Pantoprazole -Zofran-on hold secondary to prolongation of QT Hypophosphatemia -Repleted per ICU electrolyte replacement protocol, DVT GI prophylaxis - Teds SCDs - Pantoprazole Dr. Espinoza deciding regarding transvaginal drainage of residual fluid collection. General surgery following as well. Tim Pearson MD Apr 26, 2017 15:17
[2017-04-26] MEDS: LORazepam 2 MG/ML VIAL IV PUSH PRN ×2 (17:44→21:29)
--- NOTE | 2017-04-26 17:54 | RADRPT ---
EXAM DATE/TIME: 04/26/2017 16:38 [place] COMPARISON: CT ABDOMEN & PELVIS W/O CONTRAST, April 18, 2017, 16:08. CT ABDOMEN & PELVIS W/O CONTRAST, April 22 017, 17:30. INDICATIONS : Follow up abscess. ORAL CONTRAST: No oral contrast ingested. RADIATION DOSE: 12.08 CTDIvol (mGy) MEDICAL HISTORY : Hypertension. Renal failure, chronic. SURGICAL HISTORY : Kidney transplant x5 ENCOUNTER: Subsequent ACUITY: 2 weeks PAIN SCALE: 5/10 LOCATION: Bilateral pelvis TECHNIQUE: Volumetric scanning of the pelvis was performed. Using automated exposure control and adjustment of the mA and/or kV according to patient size, radiation dose was kept as low as reasonably achievable t o obtain optimal diagnostic quality images. DICOM format image data is available electronically for review and comparison. FINDINGS: Interval percutaneous drainage catheter placement in right sided hydro/pyosalpinx. There is catheter is in good position with moderate interval improvement. There is residual mild to moderate hydro/pyos alpinx. There is a stable left percutaneous drainage catheter and placement previously placed in left -sided [place]/pyosalpinx. There is stable mild prominence of the left fallopian tube. The There is a right lower quadrant transplant kidney in place. There is continued perinephric stranding and diffuse mesenteric edema. Collection of air adjacent to the mid transplant kidney laterally appea rs to correlate with a loop of bowel that are demonstrated on prior exams. No apparent additional new fluid collections are noted in the pelvis. Bladder is decompressed secondary to Calvo catheter. CONCLUSION: 1. Moderate interval improvement following percutaneous drainage catheter placement in right sided hy parviz/pyosalpinx although there is residual mild to moderate [place]/hydrosalpinx. 2. Stable left sided pelvic drainage catheter with stable mild prominence of the left fallopian tube. No significant residual drainable fluid collection. 3. Remainder of examination is unchanged. Jefferson Huynh MD on April 26, 2017 at 17:40 Board Certified Radiologist. This report was verified electronically.
--- NOTE | 2017-04-26 17:54 | HHI.PR ---
Subjective Remarks UP in bed lucid, talking and picking at food Objective - Vital Signs Date Time Temp Pulse Resp B/P Pulse Ox O2 Delivery O2 Flow Rate FiO2 04/26/17 13:18 98 Nasal Cannula 2.00 04/26/17 12:00 98.3 68 18 152/99 100 04/26/17 08:00 98.4 101 14 114/77 100 04/26/17 06:00 91 04/26/17 04:00 109 04/26/17 04:00 97.9 106 23 113/77 100 04/26/17 02:00 68 04/26/17 00:00 67 04/26/17 00:00 97.8 66 14 122/82 95 04/26/17 00:00 68 04/25/17 22:00 69 04/25/17 20:53 98 04/25/17 20:00 97.8 73 22 133/91 96 04/25/17 20:00 68 04/25/17 18:00 75 I/O 04/25/17 04/25/17 04/25/17 04/26/17 04/26/17 04/26/17 07:00 15:00 23:00 07:00 15:00 23:00 Intake Total 649 ml 1112 ml 360 ml 329 ml Output Total 235 ml 4345 ml 125 ml 110 ml Balance 414 ml -3233 ml 235 ml 219 ml Intake Oral 60 ml 200 ml 50 ml IV Total 589 ml 912 ml 310 ml 329 ml Output Urine Total 200 ml 265 ml 100 ml 100 ml Drainage Total 35 ml 80 ml 25 ml 10 ml Hemodialysis 4000 ml # Bowel Movements 1 1 0 0 Result Diagram: 04/26/17 0620 04/26/17 0620 Other Results left arm below fistula continues to increase with swelling no drainage from left drain any more Medications and IVs Can we A/P Assessment and Plan clincially improved CT still shows posterior abcess but overall much improved--especially the anasarca can we do fistula gram for left graft since swelling increasing? Ayala Espinoza MD Apr 26, 2017 17:54
--- NOTE | 2017-04-26 18:33 | HHI.NPPN ---
Subjective General Problems: Anemia, Hypertension Renal Failure: End Stage Renal Disease History of Present Illness 27-year-old female with past medical history of hypertension, hypothyroidism, gastroesophageal reflux disease, history of chronic anemia, end-stage renal disease on hemodialysis two times per week, history of multiple renal transplants in the past who was admitted because of heavy vaginal bleeding after she had an IUD placed. I was called to see the patient for the management of dialysis. Additional Remarks Patient is alert, now eating, abd. pain and breathing better. Review of Systems General Constitutional: Fatigue Cardiovascular Cardiac: MUIR Gastrointestinal Gastrointestinal: Abdominal Pain, Nausea & Vomiting, Diarrhea Objective Data Data 04/25/17 04/26/17 19:00 07:00 Intake Total 1112 ml 689 ml Output Total 4345 ml 235 ml Balance -3233 ml 454 ml Intake Oral 200 ml 50 ml IV Total 912 ml 639 ml Output Urine Total 265 ml 200 ml Drainage Total 80 ml 35 ml Hemodialysis 4000 ml # Bowel Movements 1 0 Vital Signs Date Time Temp Pulse Resp B/P Pulse Ox O2 Delivery O2 Flow Rate FiO2 04/26/17 13:18 98 Nasal Cannula 2.00 04/26/17 12:00 98.3 68 18 152/99 100 04/26/17 08:00 98.4 101 14 114/77 100 04/26/17 06:00 91 04/26/17 04:00 109 04/26/17 04:00 97.9 106 23 113/77 100 04/26/17 02:00 68 04/26/17 00:00 67 04/26/17 00:00 97.8 66 14 122/82 95 04/26/17 00:00 68 04/25/17 22:00 69 04/25/17 20:53 98 04/25/17 20:00 97.8 73 22 133/91 96 04/25/17 20:00 68 -: 04/26/17 0620 04/26/17 0620 Physical Exam General Appearance: Pale, Anxious Pulmonary Resp Exam: Breath Sounds Equal, Decreased Bases, Diminished Breath Sounds Cardiology CV Exam: Arrhythmia Gastrointestinal/Abdomen GI Exam: Soft, Positive Bowel Movement, Non-Distended Extremeties Extremities Exam: Trace Edema Neurologic Neuro Exam: Alert, Awake, Oriented, Obtunded Psychiatric Psych Exam: Appropriate Responses Assessment/Plan Assessment Summary: Anemia of CKD, Hypertension, End Stage Renal Disease, Transplant Kidney Status Problem List: (1) Hypertension (2) Hypothyroidism (3) History of CVA (cerebrovascular accident) (4) Renal transplant failure and rejection (5) End stage chronic kidney disease (6) Anemia (7) Sepsis Plan History of kidney transplant since age 4 first from the father subsequently mother these lasted for about 15 years and afterwards she received a cadaveric kidney transplant and she received 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 ID is following. Repeat CT pelvis noted. Now has drain inserted. Culture growing Enterobacter on prednisone 7.5 mg daily, got the injection of Nulojix on 04/20. Develop RVR, and now HR and BP better. HR and BP better now. Hgb. is stable. HD will be in AM, will continue now 3 times a week. Problem Qualifiers (1) Hypertension: Qualified Code: I10 - Essential hypertension Veronica Pichardo MD Apr 26, 2017 18:33
[2017-04-26] MEDS: METOPROLOL TARTRATE 50 MG TAB PO SCH (21:31)
[2017-04-26] MEDS: DEXTROSE 5% IN WATE 1000ML INJ 1,000 ML IV SCH (21:32)
[2017-04-27] VITALS (11 sets, daily range): BP systolic 135–149; BP diastolic 88–97; PULSE 56–64; RESP 11–20; TEMP 97.2–98.3; O2SAT 94–100
[2017-04-27] MEDS: MEROPENEM INJ 500 MG in SODIUM CHLORIDE 0.9% INJ 100 ML IV SCH (01:29)
[2017-04-27] MEDS: AMIODARONE INJ 450 MG in DEXTROSE 5% IN WATE(EXCEL) INJ 241 ML IV SCH ×2 (01:29)
[2017-04-27] MEDS: CHLORHEXIDINE GLUCONATE 2 % 1 PACK (2 CLOTHS) TOP SCH (01:30)
[2017-04-27] MEDS: INSULIN NovoLIN REGULAR SUPPLEMENTAL SCALE SQ SCH ×6 (04:00→20:00)
[2017-04-27] MEDS: LEVOTHYROXINE SODIUM 25 MCG TAB PO SCH (05:31)
[2017-04-27] MEDS: HYDROmorphone HCL PF 1 MG/ML VIAL IV PUSH PRN ×3 (05:32→20:49)
[2017-04-27] MEDS: SODIUM CHLORIDE 0.9% FLUSH 10 ML FLUSH SCH ×2 (08:34→20:46)
[2017-04-27] MEDS: ASPIRIN EC 81 MG TABEC PO SCH (08:35)
[2017-04-27] MEDS: CHOLECALCIFEROL (VIT D3) 1000 UNIT TAB PO SCH (08:36)
[2017-04-27] MEDS: DULoxetine HCl DR 30 MG CAP PO SCH (08:36)
[2017-04-27] MEDS: METOPROLOL TARTRATE 100 MG TAB PO SCH (08:36)
[2017-04-27] MEDS: DOCUSATE SODIUM 50 MG/SENNA 8.6 MG TAB PO SCH ×2 (08:36→20:45)
[2017-04-27] MEDS: VANCOMYCIN 500 MG VIAL (FOR ORAL USE ONLY) PO SCH ×4 (08:36→20:46)
[2017-04-27] MEDS: DRONEDARONE 400 MG TAB PO SCH ×2 (08:36→20:45)
[2017-04-27] MEDS: predniSONE 5 MG TAB PO SCH (08:37)
[2017-04-27] MEDS: FAMOTIDINE 20 MG/2 ML VIAL IV PUSH SCH ×2 (08:37→20:46)
[2017-04-27] MEDS: NEOMYCIN/POLYMYXIN/BACITRACIN OINT 15 GM TUBE TOPICAL SCH ×2 (09:00→20:47)
[2017-04-27] MEDS: HEPARIN SODIUM - SQ 10,000 UNITS/ML VIAL SQ SCH ×2 (09:00→20:46)
--- NOTE | 2017-04-27 09:28 | HHI.CCPN ---
Subjective Remarks/Hospital Course Hospital Course: 27-year-old female who has a chronic renal condition that caused early renal failure in her teens now status post 5 transplants, has had issues of chronic immunosuppresion, including rapid development of pneumonia and ARDS from a cold ; joint sepsis and recent left knee debridement, CVA and need for chronic anticoagulation and dialysis twice weekly in [place], presents today complaining of abdominal pain, fevers, and diarrhea. . Earlier this month, she called [facility] with extremely heavily bleeding despite placement of mirena IUD. This was so profound she bled to a hgb< 5 and required ablation and transfusion. She did well the first two weeks and then developed the above symptoms two days ago. She was started on by mouth antibiotics by her [facility] physician but her symptoms progressed and she presents to ED today after dialysis. MRI obtained today show unremarkable uterus BUT suggests bilateral TOAs which is unexpected. She is followed by [facility] with desire to avoid surgical intervention given co morbidities. Subjective: 04/16: complaints of abdominal pain not well-controlled with current percocet. hypoglycemic overnight requiring d50w x 1. hemodynamics stabilized. 04/17: abdominal pain is stable. off vasopressors. thrombocytopenic and anemic this morning requiring 2 units prbc and platelets. no evidence of DIC based on high fibrinogen. otherwise clinically stable. again discussed care with cold roll catcher, will plan for conservative management with iv abx and repeat imaging before pursuing surgical options, unless she clinically declines. 04/18: Overnight results patient's C. difficile positive. By mouth Flagyl discontinued. IV Flagyl initiated with by mouth vancomycin. ID following. Patient noted to be thrombocytopenic concern for possible surgical intervention secondary to bilateral adnexal masses. We'll transfuse 2 units of platelets this a.m., and insertion of Calvo catheter per PIG MACHINE CRANE OPERATOR recommendations. Ofirmev added for 24 hours for pain control. 04/19: Improvement in pain control overnight. Patient remains thrombocytopenic 2 units of platelets provided. Hit panel ordered Patient to IR this afternoon for percutaneous drainage of tubo-ovarian abscesses. Transfer orders placed for [facility] transplant [place] for management by Dr. Dakota Harris, 04/20: The patient underwent CT-guided percutaneous drainage of left tubo- ovarian abscess yesterday with drainage of approximately 60 cc , overnight perc drain in situ an additional 50 cc. Patient complains of mild pain in the pelvic region, Ofirmev every 6 hours added to medication regimen in conjunction with Dilaudid. Patient scheduled for pelvic ultrasound this a.m.. Patient delay in transfer to transplant facility secondary to hematological concerns by facility. Optimization in process,the patient received 2 units of packed red blood cells, and 2 units of platelets overnight, subsequent platelet count continues to be 44. Additionally given this a.m. 2 units of Rh+ platelets to be transfused, patient received Rhogam and and is covered approximately several days ago. This was discussed with Dr. Hylton, pathology secondary to the unavailability of Rh- products. D dimer and fibrinogen labs ordered, hematology oncology consulted appreciate recommendations. 04/21: The patient was noted to have sustained ventricular bigeminy, but normotensive at 12 noon . Stat 12-lead EKG revealed QT prolongation, the patient was noted to have hypophosphatemia which was being replaced . The patient was also noted to have ICU delirium last night with escalation this afternoon. Patient noted not to have had any sleep for the last 48 hours, Ativan 0.5 mg 1 dose given. Olanzapine scheduled for tonight in addition melatonin if needed, to maintain sleep hygiene. No transfer to [facility] at this time, patient continues to have persistent nausea and vomiting, in the setting of QT prolongation. Unable to maintain a PO diet, to include liquids, now also concern for aspiration and patient's confused state. Renal formulation, PPN initiated. Consideration for Dobbhoff tube placement and initiation of tube feeds, but patient agitated, with persistent nausea and vomiting at this time. 04/22: The patient slept for the majority of the evening with 1 dose of Ativan, and melatonin. This a.m. patient remains confused, less agitation, negative ammonia level. Plan for maintenance of sleep hygiene at night, with stimulation during the day. Symptoms of nausea decreased, the patient was able to tolerate a partial sandwich last evening, she continues on PPN at 42 cc/ hour. Levothyroxine dosing resumed, patient tolerating scheduled PO this a.m.. CT scan scheduled per PIG MACHINE CRANE OPERATOR for this a.m.. 04/23: ICU delirium resolved. The patient slept all night with the use of melatonin. Patient alert and oriented this morning. Complains of mild abdominal discomfort, VAS scale 5/10. Patient tolerating by mouth diet, PPN, lipids discontinued. The patient has intermittent periods of hypertension, to the sedative effects of clonidine discontinued. Metoprolol and Hydralazine added when necessary for hypertension. Heparin reinitiated yesterday, per heme on all a GI oncology recommendation. No platelet count 39,000, due to prothrombotic state increased risks will continue heparin subcutaneous twice a day. Discussed with Dr. Oscar 04/24: Had a fever with temperature 102 this morning. Respiratory rate increased to the 30s. ABG revealed metabolic acidosis/respiratory alkalosis with hypoxemia. Patient was maintaining O2 sats on 3 L nasal cannula. She was given 1 amp of bicarbonate and placed on Ventimask. Chest x-ray revealed right sided infiltrates raising suspicion for aspiration. Patient is otherwise awake and alert. She did have some sensation of shortness of breath. She also complained of nausea and was given Zofran 4 mg IV stat. 04/25: Continues to be febrile. Underwent CT-guided drainage of right sided pelvic collection this morning. Being followed by Gen. surgery/PIG MACHINE CRANE OPERATOR/hematology as well as nephrology. 04/26: Feels a little better. Continues to have lower abdominal pain. Remains on nasal cannula. Has percutaneous drains bilaterally to drain bilateral tubal ovarian abscesses and is being followed by Dr. Espinoza. 04/27: Remains afebrile. Acidosis resolved. Feels better. Denies shortness of breath. Currently on room air. Awaiting fistulogram to evaluate AV fistula site. Objective Vital Signs Date Time Temp Pulse Resp B/P Pulse Ox O2 Delivery O2 Flow Rate FiO2 04/27/17 08:42 94 Nasal Cannula 3.00 04/27/17 06:00 60 04/27/17 04:00 98.3 11 135/88 04/24/17 16:33 50 Intake and Output 04/26/17 04/26/17 04/27/17 08:00 16:00 00:00 Intake Total 329 ml 988 ml 586 ml Output Total 110 ml 195 ml 150 ml Balance 219 ml 793 ml 436 ml Result Diagram: 04/26/17 0620 04/26/17 0620 Other Results Microbiology Date/Time Procedure Status Source Growth 04/24/17 14:20 Gram Stain - Final Complete Abscess Other 04/24/17 14:20 Wound Culture - Final Complete Enterobacter Cloacae Imaging Chest x-ray 04/24 which was personally reviewed: Diffuse right sided infiltrates noted Objective Remarks GENERAL: young chronically ill-appearing female, laying in bed in no acute distress SKIN: Warm and dry. Anasarca HEAD: Normocephalic. EYES: No scleral icterus. No injection or drainage. NECK: trachea midline. No JVD. CARDIOVASCULAR: Regular rate and rhythm. . RESPIRATORY: equal chest rise. on room air. Nasal cannula O2 at 2 L/m GASTROINTESTINAL: Abdomen soft, tenderness in lower abdomen noted. no guarding or rebound. nondistended. Left/ right percutaneous pelvic drain noted, no erythema, dressing C/D/I minimal serosanguineous fluid noted MUSCULOSKELETAL: No cyanosis, peripheral edema noted 1+, left arm 2+ peripheral edema. EXTREMITIES: No clubbing cyanosis. Left arm 1+ edema elevated. Left upper arm AV fistula noted Neuro: Drowsy but easily arousable. Follows commands. Verbalizes appropriately.. no focal deficits. Procedures 04/19 percutaneous tubo-ovarian abscesses via IR 04/20 pelvic ultrasound 04/20 CT abdomen and pelvis 04/[address] abdomen and pelvis A/P Assessment and Plan 27-year-old female with Abdominal pain- moderate - secondary to tubo-ovarian abscesses - oxycodone 10mg po q4h prn - dilaudid 0.5mg iv q3h prn Severe Sepsis Tubo-ovarian Abscess Enterobacter bacteremia C. diff colitis - f/u blood cultures- growing enterobacter -On IV cefepime switched to meropenem IV on 04/25, IV fluconazole, PO vancomycin per ID - Infectious disease following Dr. Cannon - [facility] following Dr. Desai -04/20 CT abdomen and pelvis bilobed right adnexal mass, diverticulosis, etc. left adnexa, small bilateral pleural effusions, mild abdominal ascites, with slight anasarca - 04/19 S/P percutaneous drainage left tubo-ovarian abscess- Enterobacter cloacae -04/[address] abdomen bilateral pleural effusions with right basilar consolidation. Adnexal mass filled with pus 10.9 cm, splenomegaly 04/25: Status post or cutaneous drainage of right sided tubo-ovarian collection with removal of 160 cc of purulent material which was sent for culture. Rosie wound infection -- unclear if colonization or infection, but immunocompromised and clinically toxic appearing -- fluconazole, renally adjusted iv. -- ID following Hypoglycemia- resolved. -- PPN x 1 day. Nausea resolved. Patient tolerating 50% of diet. PPN lipids discontinued -- glucose checks q4h End-stage renal disease - Hemodialysis per nephrology - consult nephrology- Dr. Pichardo following - Awaiting fistulogram for evaluation of AV fistula site due to edema Hypothyroidism -- Obtain TSH level, Free T4 -Levothyroxin 88 mcgs/day Anemia secondary to critical illness and ESRD- -- received 1 unit prbc 04/16 -- 2 units prbc 04/17, 2 units PRBC 04/19 -- goal hgb > 7 Thrombocytopenia -- likely secondary to sepsis. low probability HIT 04/17 1 u Plts ----04/19 4 units Platelets (Rh -), 04/20 2 units (Rh +) RhoGAM previously given. Discussion with Dr. Hylton pathology patient does not plan on in the near future. Patient remains thrombocytopenic. -- goal plt > 50k. --Hematology/oncology following Dr. Peralta, follow-up recommendations. Heparin 5000 units subcutaneous 2 continue twice a day, per hematology and oncology. Concern for thrombosis -04/19- HIT panel negative -04/24 platelet count 43,000. On 04/[address] Espinoza who requested platelet transfusion for possible percutaneous drainage/surgery. Transfuse platelets on 04/24. Ventricular bigeminy-resolved QT prolongation-resolved -QT interval within normal limits -Replete electrolytes as needed Hypertension - Discontinue Clonidine -Metoprolol, hydralazine when necessary Mild protein calorie malnutrition Persistent nausea and vomiting -04/23 PPN, lipids discontinued -Continue to encourage PO intake as tolerated, renal diet -Zofran when necessary for nausea ICU Delirium-resolved Toxic metabolic encephalopathy-resolved Altered mental status-resolved -Maintain sleep hygiene, out of bed to chair during the day -Melatonin 5 mg @ HS PRN for insomnia -Monitor electrolytes MSK: - Left arm peripheral edema 2+ - 04/19 venous Doppler ultrasound bilateral upper extremities, negative for DVT -Maintain elevation of left arm -Healing surgical wound left knee-line Neosporin ointment when necessary GERD Nausea and vomiting - Pantoprazole -Zofran-on hold secondary to prolongation of QT Hypophosphatemia -Repleted per ICU electrolyte replacement protocol, DVT GI prophylaxis - Teds SCDs - Pantoprazole Dr. Espinoza/ General surgery following. Transfer out of ICU today. Consult and transfer to hospital service for further medical management. Critical care will be signing off, please reconsult if needed. Tim Pearson MD Apr 27, 2017 09:28
--- NOTE | 2017-04-27 10:05 | HHI.IDPN ---
Subjective Subjective Remarks Patient is a 27-year-old female, who has a complicated medical history, recently underwent procedure for severe menstrual bleeding. She underwent D&C and ablation around March 24. 2 days prior to admission she started having significant abdominal pain, and some nausea. She also has had some fever and chills. She had episodes of diarrhea, but that has resolved. She also noted some mucousy bloody vaginal drainage. She presented to the hospital, and imaging studies showed significant inflammatory changes in the pelvis and possibly tubo-ovarian abscess. She has the transplanted kidney with hydronephrosis. Since admission she has been febrile up to 103. Her blood pressure is okay. She still has significant abdominal pain. The pain is in the lower quadrant and it radiates to her back. She denies any respiratory complaint. Patient has renal failure, and is anuric. 2 blood cultures done on admission are now reported as growing Enterobacter. Patient also has had problem with her left knee. She initially had fracture of her left patella, and has had arthroscopic surgery. There was a culture done in May that had Rosie albicans. Patient apparently had been given Diflucan previously. The last time she had any surgery on that left knee here in this area was in August, and this was done at [facility]. Culture it looks like from that surgery did not grow anything. Patient was subsequently referred to a doctor in [place], and she underwent more extensive surgery to her left knee. Culture reportedly grew yeast, and the patient was given Cresemba by the infectious disease physician who saw her at [facility]. She has a follow-up appointment with that infectious disease doctor around end of April. Notes reviewed D/W RN Temps better Pain better Not much output from the 2 percutaneous drains Repeat pelvic CT noted - L fluid almost gone; R still present but improving Diarrhea gone New fluid C/S from R, also with Enterobacter Has swelling LUE - has had similar problem before, and usually improves with elevation Fistulogram has been ordered For HD today Working with PT and has been doing some ambulation in her room using walker Antibiotics Meropenem Diflucan Vanco po Lines Port Past Medical History Hypothyroidism Hypertension GERD Endstage renal disease, on HD - diagnosis made when she was about 3 years old CVA in 2012 History of chronic steroid therapy. 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 Vital Signs Date Time Temp Pulse Resp B/P Pulse Ox O2 Delivery O2 Flow Rate FiO2 04/27/17 08:42 94 Nasal Cannula 3.00 04/27/17 08:00 64 04/27/17 08:00 64 04/27/17 06:00 60 04/27/17 04:00 98.3 56 11 135/88 04/27/17 04:00 57 04/27/17 02:00 61 04/27/17 00:00 60 04/27/17 00:00 98.2 61 18 141/97 04/26/17 22:00 63 04/26/17 20:15 100 Nasal Cannula 3.00 04/26/17 20:00 63 04/26/17 20:00 98.2 54 14 118/80 100 04/26/17 18:00 60 04/26/17 16:00 98.6 62 17 145/97 100 04/26/17 16:00 62 04/26/17 14:00 62 04/26/17 13:18 98 Nasal Cannula 2.00 04/26/17 12:00 68 04/26/17 12:00 98.3 68 18 152/99 100 04/26/17 10:00 67 04/26/17 04/26/17 04/27/17 15:00 23:00 07:00 Intake Total 988 ml 586 ml 362 ml Output Total 195 ml 150 ml 203 ml Balance 793 ml 436 ml 159 ml Intake Oral 420 ml 250 ml 100 ml IV Total 568 ml 336 ml 262 ml Output Urine Total 165 ml 150 ml 200 ml Drainage Total 30 ml 3 ml # Bowel Movements 1 0 0 . Laboratory Tests Test 04/26/17 06:20 White Blood Count 4.1 TH/MM3 Red Blood Count 2.58 MIL/MM3 Hemoglobin 7.6 GM/DL Hematocrit 22.5 % Mean Corpuscular Volume 87.0 FL Mean Corpuscular Hemoglobin 29.2 PG Mean Corpuscular Hemoglobin 33.6 % Concent Red Cell Distribution Width 22.4 % Platelet Count 50 TH/MM3 Mean Platelet Volume 9.6 FL Neutrophils (%) (Auto) 79.5 % Lymphocytes (%) (Auto) 5.1 % Monocytes (%) (Auto) 13.5 % Eosinophils (%) (Auto) 0.7 % Basophils (%) (Auto) 1.2 % Neutrophils # (Auto) 3.3 TH/MM3 Lymphocytes # (Auto) 0.2 TH/MM3 Monocytes # (Auto) 0.6 TH/MM3 Eosinophils # (Auto) 0.0 TH/MM3 Basophils # (Auto) 0.0 TH/MM3 CBC Comment AUTO DIFF Differential Comment AUTO DIFF CONFIRMED Platelet Estimate LOW Platelet Morphology Comment NORMAL Ovalocytes 1+ Laboratory Tests Test 04/26/17 06:20 Sodium Level 136 MEQ/L Potassium Level 4.0 MEQ/L Chloride Level 98 MEQ/L Carbon Dioxide Level 23.7 MEQ/L Anion Gap 14 MEQ/L Blood Urea Nitrogen 36 MG/DL Creatinine 4.69 MG/DL Estimat Glomerular Filtration 11 ML/MIN Rate Random Glucose 97 MG/DL Calcium Level 8.2 MG/DL Total Bilirubin 1.5 MG/DL Aspartate Amino Transf 11 U/L (AST/SGOT) Alanine Aminotransferase 7 U/L (ALT/SGPT) Alkaline Phosphatase 579 U/L Total Protein 4.8 GM/DL Albumin 2.0 GM/DL Microbiology Date/Time Procedure Status Source Growth 04/24/17 14:20 Gram Stain - Final Complete Abscess Other 04/24/17 14:20 Wound Culture - Final Complete Enterobacter Cloacae 04/25/17 10:40 Aerobic Blood Culture - Preliminary Resulted Blood Other NO GROWTH IN 1 DAY 04/25/17 10:40 Anaerobic Blood Culture - Preliminary Resulted Blood Other NO GROWTH IN 1 DAY 04/25/17 10:40 Aerobic Blood Culture - Preliminary Resulted Blood Other NO GROWTH IN 1 DAY 04/25/17 10:40 Anaerobic Blood Culture - Preliminary Resulted Blood Other NO GROWTH IN [address] 04/26/17 0000 Signed Impressions: Service Date/Time: Wednesday, April 26, 2017 16:38 - CONCLUSION: 1. Moderate interval improvement following percutaneous drainage catheter placement in right sided hydro/pyosalpinx although there is residual mild to moderate [place]/hydrosalpinx. 2. Stable left sided pelvic drainage catheter with stable mild prominence of the left fallopian tube. No significant residual drainable fluid collection. 3. Remainder of examination is unchanged. Jefferson Huynh MD ons Abdomen/Pelvis CT 04/20/17 0000 Signed Impressions: Service Date/Time: Thursday, April 20, 2017 18:16 - CONCLUSION: 1. The complex fluid collection left adnexa has significantly decreased in size. 2. Stable findings as above. Yusuf Jacob MD Abscess Drainage CT 04/19/17 0957 Signed Impressions: Service Date/Time: Wednesday, April 19, 2017 11:12 - CONCLUSION: Uncomplicated CT guided drainage. Galdino Heredia MD Abdomen/Pelvis CT 04/18/17 0000 Signed Impressions: Service Date/Time: Tuesday, April 18, 2017 16:08 - CONCLUSION: 1. Stable bilateral adnexal complex cystic masses/collections. 2. Hepatosplenomegaly. 3. Tiny bilateral pleural effusions with adjacent bilbasilar atelectasis. 4. Tiny pericardial effusion. 5. Cardiomegaly. Mikael León MD Pelvis Ultrasound 04/17/17 0000 Signed Impressions: Service Date/Time: Monday, April 17, 2017 11:32 - CONCLUSION: There are complex adnexal masses bilaterally and a normal left ovary is not visualized, however the right ovary is visualized and the above-mentioned adnexal mass appears to be separate from it. Possibility of pyosalpinx should be entertained although the left ovary is not seen and therefore tubo-ovarian abscess in the left ovary is not excluded. Tin Spencer MD Chest X-Ray 04/16/17 0000 Signed Impressions: Service Date/Time: Sunday, April 16, 2017 03:44 - CONCLUSION: No acute disease Chris Myrick MD Pelvis MRI 04/15/17 0000 Signed Impressions: Service Date/Time: Saturday, April 15, 2017 18:39 - CONCLUSION: 1. The uterus is normal in appearance without obvious endometrial thickening or mass. 2. Normal appearing ovaries are not visualized. In the adnexal region bilaterally dilated tortuous tubular structures are seen with a cystic complex appearance concerning for bilateral hydrosalpinx and tubo-ovarian abscess formation given the extensive inflammatory changes should be considered. 3. Abnormal circumferential bowel wall thickening involving the rectum. 4. Right lower quadrant transplant kidney with hydronephrosis. Moe Aragon MD Physical Exam GENERAL: awake and alert, not SOB SKIN: Warm and dry. No generalized rash HEAD: Atraumatic. Normocephalic. No temporal wasting, or tenderness. EYES: [place] conjunctiva. No petechia or hemorrhage. No scleral icterus. No injection or drainage. EARS, NOSE AND THROAT: Nose without bleeding or purulent nasal discharge. Mucous membranes pink and moist. No oral lesions noted. NECK: Trachea midline. Supple and not tender, no meningeal signs CARDIOVASCULAR: Regular rate and rhythm. No murmurs, rubs or gallops heard RESPIRATORY: Clear to auscultation. No rales, wheezing or rhonchi. Decreased at bases. Port in R upper chest, no evidence of infection ABDOMEN: Distended, hypoactive bowel sounds has scars compatible with multiple abdominal surgeries, mild abdominal tenderness. Drains [address] not much in bag, old blood EXTREMITIES: No clubbing, cyanosis. No pedal edema. LUE very swollen, some induration around AVF, mild tenderness. Has L knee has effusion, healed incisions with some scabs present, NEUROLOGICAL: Awake and alert, non-focal PSYCHIATRIC: cooperative. LINE: Port with no evidence of infection Assessment & Plan Remarks IMPRESSION Enterobacter sepsis, due to TOA - has drains both side - recent D and C, and ablation for heavy bleeding; not sexually active - has some rectal wall thickening - repeat BC have been negative Recurrent fevers, resolved; better since R drain placed or since Merem added - repeat C/S still sensitive ESRD, previous transplant x 5, last one done 2014 - on HD had AVG in her L upper arm Infection L knee, with yeast , OR end of January, has been on Cresemba, clinically stable C diff colitis Pancytopenia, better - leukopenia, ?due to meds (Zosyn, Flagyl), ?due to infection, better RECOMMENDATION Continue Meropenem Continue Diflucan for her knee infection - C/S from [place] reviewed - had Rosie albicans and sensitive to Diflucan and echinocandins Continue po VAnco for C diff Monitor progress Follow CBC D/W RN Spoke wit father Aury Cannon MD Apr 27, 2017 10:05
--- NOTE | 2017-04-27 10:44 | PD.ONC.PN ---
Subjective Subjective Remarks Afebrile overnight Patient found walking around the room with physical therapy She states that overall she feels okay Complains of weakness No bleeding Objective Data Date Time Temp Pulse Resp B/P Pulse Ox O2 Delivery O2 Flow Rate FiO2 04/27/17 08:42 94 Nasal Cannula 3.00 04/27/17 08:00 64 04/27/17 08:00 64 04/27/17 06:00 60 04/27/17 04:00 98.3 56 11 135/88 04/27/17 04:00 57 04/27/17 02:00 61 04/27/17 00:00 60 04/27/17 00:00 98.2 61 18 141/97 04/26/17 22:00 63 04/26/17 20:15 100 Nasal Cannula 3.00 04/26/17 20:00 63 04/26/17 20:00 98.2 54 14 118/80 100 04/26/17 18:00 60 04/26/17 16:00 98.6 62 17 145/97 100 04/26/17 16:00 62 04/26/17 14:00 62 04/26/17 13:18 98 Nasal Cannula 2.00 04/26/17 12:00 68 04/26/17 12:00 98.3 68 18 152/99 100 04/27/17 04/27/17 04/27/17 07:00 15:00 23:00 Intake Total 362 ml Output Total 203 ml Balance 159 ml Result Diagram: 04/26/17 0620 04/26/17 0620 Culture Results Microbiology Date/Time Procedure Status Source Growth 04/24/17 14:20 Gram Stain - Final Complete Abscess Other 04/24/17 14:20 Wound Culture - Final Complete Enterobacter Cloacae 04/25/17 10:40 Aerobic Blood Culture - Preliminary Resulted Blood Other NO GROWTH IN 1 DAY 04/25/17 10:40 Anaerobic Blood Culture - Preliminary Resulted Blood Other NO GROWTH IN 1 DAY 04/25/17 10:40 Aerobic Blood Culture - Preliminary Resulted Blood Other NO GROWTH IN 1 DAY 04/25/17 10:40 Anaerobic Blood Culture - Preliminary Resulted Blood Other NO GROWTH IN 1 DAY Administered Medications Medications (Trade) Dose Ordered Sig/Mega Route PRN Reason Start Time Stop Time Status Last Admin Dose Admin Aspirin (Ecotrin Ec) 81 mg DAILY PO 04/16/17 09:00 04/27/17 08:35 Dronedarone (Multaq) 400 mg BID PO 04/15/17 21:00 04/27/17 08:36 Cholecalciferol (Vitamin D3) 2,000 units DAILY PO 04/16/17 09:00 04/27/17 08:36 Sodium Chloride (NS Flush) 2 ml UNSCH PRN .XX FLUSH AFTER USING IV ACCESS 04/15/17 19:00 04/24/17 11:46 Sodium Chloride (NS Flush) 2 ml BID .XX 04/15/17 21:00 04/27/17 08:34 Acetaminophen (Tylenol) 650 mg Q6H PRN PO PAIN 1-10 AND/OR FEVER >101F 04/15/17 19:00 04/17/17 23:57 Ondansetron HCl (Zofran Inj) 4 mg Q6H PRN IV NAUSEA OR VOMITING 04/15/17 19:00 Hold 04/21/17 05:27 Heparin Sodium (Porcine) (Heparin Inj) 5,000 units Q12H SQ 04/15/17 21:00 04/26/17 21:30 Chlorhexidine Gluconate (Chlorhexidine 2% Cloth) Taper DAILY@04 TOP 04/16/17 04:00 04/12/18 03:59 04/24/17 04:00 Senna/Docusate Sodium 1 tab 1 tab BID PO 04/15/17 21:00 04/27/17 08:36 Fluconazole/ Sodium Chloride (Diflucan 200 Mg Premix Bag) 100 ml @ 100 mls/hr Q24H IV 04/16/17 11:00 04/26/17 09:51 Oxycodone HCl (Roxicodone) 10 mg Q4H PRN PO pain 1-6 04/16/17 07:45 04/26/17 12:42 Hydromorphone HCl (Dilaudid Pf Inj) 0.5 mg Q3H PRN IV PUSH pain 7-10 or not taking po 04/16/17 07:45 04/27/17 05:32 Dextrose (D50w (Vial) Inj) 25 ml UNSCH PRN IV PUSH HYPOGLYCEMIA-SEE COMMENTS 04/16/17 07:45 04/25/17 11:36 Famotidine 10 mg 10 mg Q12HR IV PUSH 04/16/17 21:00 04/27/17 08:37 Sodium Chloride (NS 1000 ml Inj) 1,000 ml @ 0 mls/hr Q0M PRN IV For Prime & Rinse Back 04/17/17 11:10 04/25/17 11:14 Sodium Chloride (NS Flush) 5 ml UNSCH PRN IV FLUSH WITH DIALYSIS 04/17/17 11:15 04/24/17 11:46 Ondansetron HCl (Zofran Inj) 4 mg UNSCH PRN IV WITH DIALYSIS 04/17/17 11:15 04/24/17 20:56 Epoetin Torsten (Epogen Inj) 10,000 units UNSCH PRN IV WITH DIALYSIS 04/17/17 11:15 04/25/17 11:14 Gelatin (Gelfoam 12 Mm/7 Mm Top) 1 foam UNSCH PRN TOP SEE LABEL COMMENTS 04/17/17 11:15 04/25/17 11:14 Prochlorperazine Edisylate (Compazine Inj) 5 mg Q6H PRN IV PUSH nausea 04/17/17 20:15 04/26/17 00:36 Vancomycin HCl (VANCOMYCIN for oral use only) 500 mg QID PO 04/20/17 13:00 04/27/17 08:36 Lorazepam (Ativan Inj) 0.5 mg Q6H PRN IV PUSH NAUSEA OR VOMITING 04/21/17 01:00 04/26/17 17:44 Prednisone (Deltasone) 7.5 mg DAILY PO 04/20/17 19:30 04/27/17 08:37 Melatonin (Melatonin) 5 mg HS PRN PO INSOMNIA 04/21/17 14:30 04/23/17 20:30 Neomycin/ Polymyxin/ Bacitracin (Neosporin Oint) 1 applic Q12HR TOPICAL 04/21/17 21:00 04/26/17 21:00 Lorazepam (Ativan Inj) 0.5 mg HS PRN IV PUSH ANXIETY 04/21/17 20:15 04/26/17 21:29 Levothyroxine Sodium (Synthroid) 25 mcg DAILY@0600 PO 04/23/17 06:00 04/27/17 05:31 Metoprolol Tartrate (Lopressor) 50 mg HS PO 04/23/17 21:00 04/26/17 21:31 Metoprolol Tartrate 100 mg 100 mg DAILY PO 04/24/17 09:00 04/27/17 08:36 Amiodarone HCl 450 mg/Dextrose 250 ml @ 0 mls/hr CONTINUOUS IV 04/24/17 12:00 04/27/17 01:29 Dextrose 1,000 ml @ 30 mls/hr Q24H IV 04/24/17 18:30 04/26/17 21:32 Meropenem/Sodium Chloride (Merrem Inj/NS Inj) 100 ml @ 200 mls/hr Q12H IV 04/25/17 13:00 04/27/17 01:29 Duloxetine HCl (Cymbalta Dr) 30 mg DAILY PO 04/26/17 09:00 04/27/17 08:36 Objective Remarks GENERAL: Chronically ill-appearing female walking around with physical therapy SKIN: Warm and dry. No oozing from lines HEAD: Normocephalic. EYES: No injection or drainage. NECK: Supple, trachea midline. CARDIOVASCULAR: + S1/S2. RESPIRATORY: Clear posteriorly. Breathing unlabored. GASTROINTESTINAL: Abdomen distended, tender. Drains in place EXTREMITIES: Anasarca noted NEURO: Normal speech. Moving all extremities. 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 Assessment 27-year-old female admitted on 04/15/2017 with fever, malaise, bloody discharge , diarrhea, pelvic cramping. Hematology consulted for pancytopenia. 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 Plan 1. Her platelets are maintaining at 50,000. If she continues to stay at this level would recommend to restart subcutaneous heparin twice a day in the next day or so. 2. Would recommend transfuse platelets prior to any surgical procedure. Attending Statement The exam, history, and the medical decision-making described in the above note were completed with the assistance of the mid-level provider. I reviewed and agree with the findings presented. I attest that I had a [id number] encounter with the patient on the same day, and personally performed and documented my assessment and findings in the medical record. hematologic picture stable and no bleeding. ct still show residual fluid/ abscess. at this point little to add and will follow platelet counts which are presently adequate.. Eileen Rao Apr 27, 2017 10:44 Lawrence Newberry MD Apr 27, 2017 17:16
--- NOTE | 2017-04-27 10:45 | PD.CONS ---
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 Patient has had a history of having abnormal menstrual bleeding leading to menorrhagia. She follows up with Dr. Espinoza. She had a D&C with endometrial ablation on 03/24/2017 and returned to the hospital on 04/15/2017 with abdominal pain, fever, nausea and diarrhea. CT scan reported bilateral TOA , allograft kidney with hydronephrosis. Patient was admitted to the intensive care unit with multiple consultations for nephrology, infectious disease, hematology, Gen. surgery as well as gynecology. She was initially on vasopressor support. She has require blood product replacement is noted with anemia and thrombocytopenia. On 04/19/[address]-guided percutaneous drainage of left tubo-ovarian abscess in interventional radiology. She has been managed on IV antibiotics. On 04/25/[address]-guided drainage place on the right sided pelvic collection. She was also positive for C. difficile. Throughout the hospitalization, patient has had problems with ventricular bigeminy, delirium. She has continued to receive hemodialysis. ICU delirium has now resolved. One point she was nothing by mouth and require PPN she is currently eating and tolerating diet well. Output from the left drain has decreased. Blood and wound cultures have come back positive for Enterobacter cloacae. Patient also has a sierra infection on the left knee from previous debridement. Patient is now afebrile, she is more oriented and although she has occasional hallucinations. Her left arm is noted with swelling around the left AV graft and she is due to have angiogram and possible angioplasty today in IR. Hospitalist services are requested to assume medical management. (Jacque Obando) Review of Systems Constitutional: DENIES: Diaphoretic episodes, Fatigue, Fever, Weight gain, Weight loss, Chills, Dizziness, Change in appetite, Night Sweats Endocrine: DENIES: Abnorml menstrual pattern, Heat/cold intolerance, Polydipsia , Polyuria, Polyphagia Eyes: DENIES: Blurred vision, Diplopia, Eye inflammation, Eye pain, Vision loss , Photosensitivity, Double Vision Ears, nose, mouth, throat: DENIES: Tinnitus, Hearing loss, Vertigo, Nasal discharge, Oral lesions, Throat pain, Hoarseness, Ear Pain, Running Nose, Epistaxis, Sinus Pain, Toothache, Odynophagia Respiratory: DENIES: Apneas, Cough, Snoring, Wheezing, Hemoptysis, Sputum production, Shortness of breath Cardiovascular: DENIES: Chest pain, Palpitations, Syncope, Dyspnea on Exertion , PND, Lower Extremity Edema, Orthopnea, Claudication Gastrointestinal: COMPLAINS OF: Abdominal pain, DENIES: Black stools, Bloody stools, Constipation, Diarrhea, Nausea, Vomiting, Difficulty Swallowing, Anorexia Genitourinary: DENIES: Abnormal vaginal bleeding, Dysmenorrhea, Dyspareunia, Sexual dysfunction, Urinary frequency, Urinary incontinence, Urgency, Hematuria , Dysuria, Nocturia, Vaginal discharge Musculoskeletal: DENIES: Joint pain, Muscle aches, Stiffness, Joint Swelling, Back pain, Neck pain Integumentary: DENIES: Abnormal pigmentation, Pruritus, Rash, Nail changes, Breast masses, Breast skin changes, Nipple discharge Hematologic/lymphatic: DENIES: Bruising, Lymphadenopathy Immunologic/allergic: DENIES: Eczema, Urticaria Neurologic: DENIES: Abnormal gait, Headache, Localized weakness, Paresthesias, Seizures, Speech Problems, Tremor, Poor Balance Psychiatric: DENIES: Anxiety, Confusion, Mood changes, Depression, Hallucinations, Agitation, Suicidal Ideation, Homicidal Ideation, Delusions ( Jacque Obando) Past Family Social History Past Medical History hypothyroidism hypertension GERD endstage renal failure history of CVA in 2012 hemodialysis dependent. history of chronic steroid therapy. Past Surgical History Renal transplants 5 left knee surgery x 2-underwent arthroscopy in 08/2016 and had an open repair of the knee on 02/23/17 D&C with endometrial ablation on 03/24/2017 Reported Medications Reported Meds & Active Scripts Active Reported Clonidine (Clonidine HCl) 0.1 Mg Tab 0.1 Mg PO BID PRN Multaq (Dronedarone) 400 Mg Tab 400 Mg PO BID Macrobid (Nitrofurantoin Monoh/Nitrofur Macro) 100 Mg Cap 100 Mg PO Q12HR 7 Days Percocet (Oxycodone-Acetaminophen) 5-325 mg Tab 1-2 Tab PO Q6H PRN Zofran (Ondansetron HCl) 4 Mg Tab 4 Mg PO Q12HR PRN Colace (Docusate Sodium) 100 Mg Capsule 100 Mg PO DAILY Vitamin D-3 (Cholecalciferol) 2,000 Unit Tab 2,000 Units PO DAILY Aspirin Adult Low Strength (Aspirin) 81 Mg Tabdr 81 Mg PO DAILY (Jacque Obando) Allergies: Coded Allergies: Gabapentin (Verified Allergy, Severe, 04/15/17) muscle spasms Active Ordered Medications Inpatient Medications Acetaminophen (Ofirmev Inj) 1,000 mg Q6H IV Last administered on 04/21/17 03: 09; Start 04/20/17 at 08:00; Stop 04/21/17 at 07:59; Status DC Acetaminophen (Tylenol) 650 mg UNSCH PRN PO for headach, pain, temp > 101F; Start 04/17/17 at 11:15 Acetaminophen 650 mg 650 mg Q4H PRN PO SEE LABEL COMMENTS; Start 04/24/17 at 11 :00; Stop 04/24/17 at 15:01; Status DC Acetaminophen/ Butalbital/ Caffeine (Fioricet 325-50-40) 1 tab ONCE ONCE PO Last administered on 04/25/17 12:24; Start 04/25/17 at 11:30; Stop 04/25/17 at 11:31; Status DC Albumin Human (Albumin 25% Inj) 25 gm UNSCH PRN IV WITH DIALYSIS; Start at 11:15 Albuterol/ Ipratropium (Duoneb Neb) 1 ampule Q2HR NEB PRN INH WHEEZING; Start 04/15/17 at 19:00 Amiodarone HCl 150 mg/Dextrose 100 ml @ 100 mls/hr ONCE ONCE IV Last administered on 04/24/17 11:44; Start 04/24/17 at 11:15; Stop 04/24/17 at 12:14 ; Status DC Amiodarone HCl 450 mg/Dextrose 250 ml @ 0 mls/hr CONTINUOUS IV Last administered on 04/27/17 01:29; Start 04/24/17 at 12:00 Aspirin (Ecotrin Ec) 81 mg DAILY PO Last administered on 04/27/17 08:35; Start 04/16/17 at 09:00 Belatacept/Sodium Chloride (Nulojix Inj/NS Inj) 100 ml @ 200 mls/hr ONCE ONCE IV Last administered on 04/20/17 21:56; Start 04/20/17 at 22:00; Stop at 22:29; Status DC Bisacodyl (Dulcolax Supp) 10 mg DAILY PRN RECTAL SEVERE CONSITIPATION; Start at 19:00 Cefepime HCl/ Sodium Chloride (Maxipime Inj/NS Inj) 100 ml @ 200 mls/hr Q24H IV Last administered on 04/24/17 14:30; Start 04/20/17 at 13:00; Stop at 10:39; Status DC Cefoxitin Sodium 2 gm/Sodium Chloride 100 ml @ 200 mls/hr Q12H IV Last administered on 04/16/17 10:52; Start 04/16/17 at 09:00; Stop 04/16/17 at 13:02 ; Status DC Ceftriaxone Sodium 1000 mg/ Sodium Chloride 100 ml @ 200 mls/hr Q24H IV Last administered on 04/15/17 20:00; Start 04/15/17 at 20:00; Stop 04/16/17 at 07:45 ; Status DC Chlorhexidine Gluconate (Chlorhexidine 2% Cloth) 3 pack UNSCH PRN TOP HYGIENIC CARE; Start 04/15/17 at 19:00 Cholecalciferol (Vitamin D3) 2,000 units DAILY PO Last administered on 08:36; Start 04/16/17 at 09:00 Clonidine (Catapres) 0.1 mg UNSCH PRN PO for BP > 180/100 X 2 readings; Start 04/17/17 at 11:15 Dextrose 1,000 ml @ 30 mls/hr Q24H IV Last administered on 04/26/17 21:32; Start 04/24/17 at 18:30 Dextrose (D50w (Syr) Inj) 25 ml NOW ONCE IV ; Start 04/21/17 at 01:00; Stop at 01:01; Status DC Dextrose (D50w (Vial) Inj) 25 ml UNSCH PRN IV PUSH HYPOGLYCEMIA-SEE COMMENTS Last administered on 04/27/17 12:29; Start 04/16/17 at 07:45 Dextrose/Sodium Chloride (D5W-NS 1000 ml Inj) 1,000 ml @ 84 mls/hr [id number] IV Last administered on 04/21/17 05:28; Start 04/17/17 at 17:30; Stop 04/22/17 at 09:24; Status DC Diphenhydramine HCl (Benadryl) 25 mg UNSCH PRN PO for hives/itching/anaphylaxis ; Start 04/17/17 at 11:15 Doxycycline Hyclate 100 mg/ Sodium Chloride 100 ml @ 100 mls/hr Q12H IV Last administered on 04/18/17 08:20; Start 04/16/17 at 10:00; Stop 04/18/17 at 12:51 ; Status DC Doxycycline Hyclate 200 mg/ Sodium Chloride 250 ml @ 166.667 mls/hr ONCE ONCE IV Last administered on 04/15/17 23:52; Start 04/15/17 at 21:00; Stop at 22:29; Status DC Dronedarone (Multaq) 400 mg BID PO Last administered on 04/27/17 08:36; Start 04/15/17 at 21:00 Duloxetine HCl (Cymbalta Dr) 30 mg DAILY PO Last administered on 04/27/17 08:36 ; Start 04/26/17 at 09:00 Epoetin Torsten (Epogen Inj) 10,000 units UNSCH PRN IV WITH DIALYSIS Last administered on 04/25/17 11:14; Start 04/17/17 at 11:15 Famotidine (Pepcid Inj) 10 mg Q12HR IV PUSH Last administered on 04/27/17 08:37 ; Start 04/16/17 at 21:00 Fat Emulsion Intravenous (Liposyn Iii 20% Inj) 250 ml @ 10 mls/hr Q24H IV Last administered on 04/22/17 21:02; Start 04/21/17 at 20:00; Stop 04/24/17 at 03:03; Status DC Fluconazole/ Sodium Chloride (Diflucan 200 Mg Premix Bag) 100 ml @ 100 mls/hr Q24H IV Last administered on 04/27/17 11:55; Start 04/16/17 at 11:00 Furosemide (Lasix Inj) 20 mg ONCE ONCE IV PUSH Last administered on 04/22/17 04:48; Start 04/22/17 at 04:30; Stop 04/22/17 at 04:31; Status DC Gelatin (Gelfoam 12 Mm/7 Mm Top) 1 foam UNSCH PRN TOP SEE LABEL COMMENTS Last administered on 04/25/17 11:14; Start 04/17/17 at 11:15 Gentamicin Sulfate (Gentamicin (Dialysis) Inj) 20 mg UNSCH PRN IV WITH DIALYSIS ; Start 04/17/17 at 11:15 Heparin Sodium (Porcine) (Heparin Inj) UNSCH PRN .XX WITH DIALYSIS; Start at 11:15 Heparin Sodium (Porcine) 8000 units 8,000 units UNSCH PRN IVF WITH DIALYSIS; Start 04/17/17 at 11:15 Hydromorphone HCl (Dilaudid Pf Inj) 0.5 mg Q4H PRN IV PUSH pain 7-10 or not taking po; Start 04/27/17 at 15:00 Insulin Human Regular 1 1 Q4HR SQ ; Start 04/16/17 at 08:00 Lactulose 30 ml 30 ml DAILY PRN PO SEVERE CONSITIPATION; Start 04/15/17 at 19: 00 Levothyroxine Sodium (Synthroid) 25 mcg ONCE ONCE PO Last administered on 04/22 09:48; Start 04/22/17 at 10:00; Stop 04/22/17 at 10:01; Status DC Lidocaine HCl 100 mg 100 mg ONCE ONCE IV PUSH ; Start 04/21/17 at 13:15; Stop 04/21/17 at 13:16; Status DC Lorazepam (Ativan Inj) 0.5 mg HS PRN IV PUSH ANXIETY Last administered on 21:29; Start 04/21/17 at 20:15 Magnesium Hydroxide (Milk Of Magnesia Liq) 30 ml Q12H PRN PO MILD - MODERATE CONSTIPATION; Start 04/15/17 at 19:00 Mannitol (Mannitol Inj) 12.5 gm UNSCH PRN IV WITH DIALYSIS; Start 04/17/17 at 11:15 Melatonin (Melatonin) 5 mg HS PRN PO INSOMNIA Last administered on 04/23/17 20 :30; Start 04/21/17 at 14:30 Meropenem/Sodium Chloride (Merrem Inj/NS Inj) 100 ml @ 200 mls/hr Q12H IV Last administered on 04/27/17 01:29; Start 04/25/17 at 13:00 Metoprolol Tartrate (Lopressor) 100 mg DAILY PO Last administered on 04/27/17 08:36; Start 04/24/17 at 09:00 Metronidazole (Flagyl 250 Mg Inj) 50 ml @ 100 mls/hr Q6H IV ; Start 04/18/17 at 13:00; Stop 04/18/17 at 13:00; Status DC Metronidazole (Flagyl) 500 mg Q8HR PO Last administered on 04/20/17 06:39; Start 04/18/17 at 14:00; Stop 04/20/17 at 11:31; Status DC Miscellaneous Information 1 Q361D XX ; Start 04/15/17 at 19:00 Miscellaneous Medication (ASP Crit: Other exception documentation) 1 UNSCH X1 PRN .XX PHARMACY DOCUMENTATION; Start 04/25/17 at 10:45; Stop 04/26/17 at 10:44; Status DC Miscellaneous Medication 1 1 UNSCH X1 PRN XX PHARMACY DOCUMENTATION; Start at 10:45; Stop 04/26/17 at 10:44; Status DC Miscellaneous 1 ea 1 ea UNSCH PRN OTHER SEE LABEL COMMENTS; Start 04/20/17 at 20:00 Morphine Sulfate 2 mg 2 mg STAT ONCE IV Last administered on 04/17/17 11:56; Start 04/17/17 at 12:00; Stop 04/17/17 at 12:01; Status DC Neomycin/ Polymyxin/ Bacitracin (Neosporin Oint) 1 applic Q12HR TOPICAL Last administered on 04/26/17 21:00; Start 04/21/17 at 21:00 Nitroglycerin (Nitrostat Sl) 0.4 mg UNSCH PRN SL CHEST PAIN; Start 04/17/17 at 11:15 Olanzapine (ZyPREXA INJ) 2.5 mg ONCE ONCE IM ; Start 04/21/17 at 14:15; Stop at 14:22; Status DC Olanzapine (ZyPREXA ZYDIS ODT) 10 mg ONCE ONCE PO Last administered on 22:19; Start 04/21/17 at 21:00; Stop 04/21/17 at 21:01; Status DC Olanzapine 2.5 mg 2.5 mg ONCE ONCE IM ; Start 04/21/17 at 15:30; Stop 04/21/17 at 15:37; Status DC Ondansetron HCl (Zofran Inj) 4 mg Q6HR PRN IV PUSH NAUSEA OR VOMITING; Start at 10:30 Oxycodone HCl (Roxicodone) 10 mg Q4H PRN PO pain 1-6 Last administered on 12:42; Start 04/16/17 at 07:45 Oxycodone/ Acetaminophen (Percocet 5-325 Mg) 1 tab Q4H PRN PO PAIN SCALE 1 TO 5 Last administered on 04/16/17 05:57; Start 04/15/17 at 19:00; Stop 04/16/17 at 07:45; Status DC Phytonadione 10 mg 10 mg ONCE ONCE SQ Last administered on 04/24/17 12:15; Start 04/24/17 at 11:00; Stop 04/24/17 at 11:01; Status DC Piperacillin Sod/ Tazobactam Sod (Zosyn 2.25 Gm Premix) 50 ml @ 100 mls/hr Q8H IV Last administered on 04/19/17 21:17; Start 04/16/17 at 14:00; Stop at 12:14; Status DC Potassium Phosphate/Sodium Chloride (Potassium Phosphate Inj/NS 250 ml Inj) 260 ml @ 43.333 mls/ hr ONCE ONCE IV Last administered on 04/21/17 14:04; Start 04/21/17 at 15:00; Stop 04/21/17 at 20:59; Status DC Prednisone (Deltasone) 7.5 mg DAILY PO Last administered on 04/27/17 08:37; Start 04/20/17 at 19:30 Prochlorperazine Edisylate (Compazine Inj) 5 mg Q6H PRN IV PUSH nausea Last administered on 04/26/17 00:36; Start 04/17/17 at 20:15 Promethazine HCl (Phenergan Inj) 12.5 mg NOW ONCE IV-CENTRAL Last administered on 04/17/17 09:54; Start 04/17/17 at 09:45; Stop 04/17/17 at 09:46 ; Status DC Senna/Docusate Sodium (Carlee-Colace) 1 tab BID PO Last administered on 04/27/17 08:36; Start 04/15/17 at 21:00 Sennosides (Senokot) 17.2 mg Q12H PRN PO MODERATE - SEVERE CONSTIPATION; Start 04/15/17 at 19:00 Sodium Chloride (NS 1000 ml Inj) 1,000 ml @ 0 mls/hr Q0M PRN IV WITH DIALYSIS; Start 04/17/17 at 11:10 Sodium Chloride (NS 250 ml Inj) 250 ml @ 15 mls/hr ONCE ONCE IV Last administered on 04/24/17 11:45; Start 04/24/17 at 11:00; Stop 04/25/17 at 03:39 ; Status DC Sodium Chloride (NS Flush) 5 ml UNSCH PRN IV FLUSH WITH DIALYSIS Last administered on 04/24/17 11:46; Start 04/17/17 at 11:15 Sodium Chloride 5.5 meq/Sodium Acetate 29.5 meq/ Potassium Chloride 20 meq/ Magnesium Chloride 5 meq/ Calcium Chloride 4.5 meq/ Multivitamins 10 ml/Folic Acid 1 mg/Amino Acids/ Dextrose 1,042.1719 ml @ 42 mls/hr Q24H IV Last administered on 04/22/17 21:03; Start 04/21/17 at 20:00; Stop 04/24/17 at 03:03 ; Status DC Vancomycin HCl 250 mg 250 mg QID PO Last administered on 04/20/17 08:33; Start 04/18/17 at 13:00; Stop 04/20/17 at 11:40; Status DC Vancomycin HCl 500 mg 500 mg QID PO Last administered on 04/27/17 17:11; Start 04/20/17 at 13:00 Vancomycin HCl/ Sodium Chloride (Vancomycin Inj/ NS 250 ml Inj) 250 ml @ 250 mls/hr ONCE ONCE IV Last administered on 04/25/17 14:03; Start 04/25/17 at 11 :00; Stop 04/25/17 at 11:59; Status DC Zolpidem Tartrate (Ambien) 5 mg HS PRN PO INSOMNIA; Start 04/15/17 at 19:00; Stop 04/16/17 at 07:45; Status DC Family History Reviewed, noncontributory Social History Lives with parents, no smoking, no alcohol, no substance abuse. (Jacque Obando) Physical Exam Vital Signs Vital Signs Date Time Temp Pulse Resp B/P Pulse Ox O2 Delivery O2 Flow Rate FiO2 04/27/17 08:42 94 Nasal Cannula 3.00 04/27/17 08:00 64 04/27/17 08:00 64 04/27/17 06:00 60 04/27/17 04:00 98.3 56 11 135/88 04/27/17 04:00 57 04/27/17 02:00 61 04/27/17 00:00 60 04/27/17 00:00 98.2 61 18 141/97 04/26/17 22:00 63 04/26/17 20:15 100 Nasal Cannula 3.00 04/26/17 20:00 63 04/26/17 20:00 98.2 54 14 118/80 100 04/26/17 18:00 60 04/26/17 16:00 98.6 62 17 145/97 100 04/26/17 16:00 62 04/26/17 14:00 62 04/26/17 13:18 98 Nasal Cannula 2.00 04/26/17 12:00 68 04/26/17 12:00 98.3 68 18 152/99 100 Physical Exam GENERAL: This is a well-nourished, well-developed patient, in no apparent distress. SKIN: No rashes, ecchymoses or lesions. Cool and dry. HEAD: Atraumatic. Normocephalic. No temporal or scalp tenderness. EYES: Pupils equal round and reactive. Extraocular motions intact. No scleral icterus. No injection or drainage. ENT: Nose without bleeding, purulent drainage or septal hematoma. Throat without erythema, tonsillar hypertrophy or exudate. Uvula midline. Airway patent. NECK: Trachea midline. No JVD or lymphadenopathy. Supple, nontender, no meningeal signs. CARDIOVASCULAR: Regular rate and rhythm without murmurs, gallops, or rubs. RESPIRATORY: Essentially clear, slightly diminished at bases. GASTROINTESTINAL: Abdomen soft, mildly tender, nondistended. No hepato- splenomegaly, or palpable masses. No guarding. Has 2 percutaneous drain with scant serosanguineous drainage. MUSCULOSKELETAL: Extremities without clubbing, cyanosis, or edema. No joint tenderness, effusion, or edema noted. No calf tenderness. Negative Homans sign bilaterally. Left arm edematous, left AVS noted. NEUROLOGICAL: Awake, alert oriented 3. No focal deficits. Laboratory Date/Time Procedure Status Source Growth 04/25/17 10:40 Aerobic Blood Culture - Preliminary Resulted Blood Other NO GROWTH IN 1 DAY 04/25/17 10:40 Anaerobic Blood Culture - Preliminary Resulted Blood Other NO GROWTH IN 1 DAY 04/24/17 14:20 Gram Stain - Final Complete Abscess Other 04/24/17 14:20 Wound Culture - Final Complete Enterobacter Cloacae (Jacque Obando) Result Diagram: 04/26/17 0620 04/26/17 0620 Imaging Last Impressions Pelvis CT 04/26/17 0000 Signed Impressions: Service Date/Time: Wednesday, April 26, 2017 16:38 - CONCLUSION: 1. Moderate interval improvement following percutaneous drainage catheter placement in right sided hydro/pyosalpinx although there is residual mild to moderate [place]/hydrosalpinx. 2. Stable left sided pelvic drainage catheter with stable mild prominence of the left fallopian tube. No significant residual drainable fluid collection. 3. Remainder of examination is unchanged. Jefferson Huynh MD Chest X-Ray 04/24/17 0000 Signed Impressions: Service Date/Time: Monday, April 24, 2017 09:11 - CONCLUSION: 1. Increasing consolidation is on the right 2. Persistent mild interstitial edema present. Can Vidal MD FACR Abscess Drainage CT 04/24/17 0000 Signed Impressions: Service Date/Time: Monday, April 24, 2017 14:06 - CONCLUSION: Uncomplicated CT guided drainage of a right anterior pelvic fluid collection. 160 mL of purulent material was obtained. Samples sent for evaluation. Elvis Tom Jr., MD Abdomen/Pelvis CT 04/22/17 0000 Signed Impressions: Service Date/Time: Saturday, April 22, 2017 17:30 - CONCLUSION: The fluid collection adjacent to the left percutaneous drain has not changed since 2 days ago and multiseptated pyosalpinx on the right side has also not significantly changed. The rest of the examination has not changed. Tin Spencer MD Upper Extremity Ultrasound 04/19/17 0000 Signed Impressions: Service Date/Time: Wednesday, April 19, 2017 20:24 - CONCLUSION: No DVT in either upper extremity. Yusuf Jacob MD Pelvis Ultrasound 04/17/17 0000 Signed Impressions: Service Date/Time: Monday, April 17, 2017 11:32 - CONCLUSION: There are complex adnexal masses bilaterally and a normal left ovary is not visualized, however the right ovary is visualized and the above-mentioned adnexal mass appears to be separate from it. Possibility of pyosalpinx should be entertained although the left ovary is not seen and therefore tubo-ovarian abscess in the left ovary is not excluded. Tin Spencer MD Pelvis MRI 04/15/17 0000 Signed Impressions: Service Date/Time: Saturday, April 15, 2017 18:39 - CONCLUSION: 1. The uterus is normal in appearance without obvious endometrial thickening or mass. 2. Normal appearing ovaries are not visualized. In the adnexal region bilaterally dilated tortuous tubular structures are seen with a cystic complex appearance concerning for bilateral hydrosalpinx and tubo-ovarian abscess formation given the extensive inflammatory changes should be considered. 3. Abnormal circumferential bowel wall thickening involving the rectum. 4. Right lower quadrant transplant kidney with hydronephrosis. Moe Aragon MD (Jacque Obando) A/P Diagnosis: (1) TOA (tubo-ovarian abscess) (2) Sepsis (3) Hypertension (4) History of CVA (cerebrovascular accident) (5) End stage chronic kidney disease (6) Thrombocytopenia (7) S/P endometrial ablation (8) History of renal transplant (9) Hypothyroidism (10) Anemia (11) Menorrhagia Assessment and Plan 27-year-old female with multiple comorbidities, end-stage renal disease and previous renal transplant and failure, menorrhagia. Presented to emergency room with sepsis, found with bilateral TOAs. Underwent CT-guided percutaneous drainage of left and right tubo-ovarian abscesses. Positive for C. difficile colitis -Continue with antibiotics -Continue vancomycin by mouth Infectious disease following -IR managing drains, they are to remain in place. Menorrhagia, bilateral TOAs Status post ablation Dr. Espinoza continues to follow patient Status post left knee debridement, has [place] 1 infection ID following and managing End-stage renal disease Hemodialysis per nephrology Left arm swelling, going to IR today for fistulogram and possible angioplasty if needed Anemia, likely secondary to sepsis Thrombocytopenia Patient has received multiple blood products Hematology oncology following Hypertension, stable Continue with medications-metoprolol and hydralazine ICU delirium, appears to be resolving Metabolic encephalopathy Continue to monitor neuro status Patient currently on melatonin 5 mg daily at bedtime when necessary Hypothyroidism Continue with medications Ventricular bigeminy, has resolved Continuous cardiac telemetry -Continue with beta anny -continue Multaq Patient okay to transfer to floor Continue with physical therapy for evaluation Continue with Heparin 5000 units subcutaneous twice a day for DVT prophylaxis Plan of care has been discussed with the patient and her father, RN and attending. Further management of patient will be dependent on the hospital course This patient was seen by myself and Dr. Maza, this consultation is written on his behalf (Jacque Obando) Assessment and Plan PT SEEN AND EXAMINED ABOVE LABS AND MEDS REVIEWED RAD DATA WAS REVIEWED DW MICHELE ABOUT PLAN OF CARE (Belia Maza MD) Problem Qualifiers (1) Hypertension: Qualified Code: I10 - Essential hypertension (2) Hypothyroidism: Qualified Code: E03.9 - Hypothyroidism, unspecified type (3) Anemia: Qualified Code: N18.6 - Anemia in chronic kidney disease, on chronic dialysis (4) Menorrhagia: Qualified Code: N92.4 - Excessive bleeding in premenopausal period Jacque Obando Apr 27, 2017 10:44 Belia Maza MD May 04, 2017 17:30
[2017-04-27] MEDS: FLUCONAZOLE 200 MG PREMIX BAG 100 ML IV SCH (11:55)
[2017-04-27] MEDS ORDERED: HYDROmorphone HCL PF 1 MG/ML VIAL IV PUSH PRN (12:09)
[2017-04-27] MEDS: DEXTROSE 50% IN WATER 50 ML VIAL(D50) IV PUSH PRN (12:29)
--- NOTE | 2017-04-27 12:34 | HHI.PR ---
Subjective Remarks In stretcher leaving for dialysis. in reasonable mood. states abdominal pain remains 03/05 biggest issues is right sided neck pain despite massage on Tuesday appetitite still poor Objective - Vital Signs Date Time Temp Pulse Resp B/P Pulse Ox O2 Delivery O2 Flow Rate FiO2 04/27/17 08:42 94 Nasal Cannula 3.00 04/27/17 08:00 64 04/27/17 08:00 64 04/27/17 08:00 97.4 64 20 142/93 04/27/17 06:00 60 04/27/17 04:00 98.3 56 11 135/88 04/27/17 04:00 57 04/27/17 02:00 61 04/27/17 00:00 60 04/27/17 00:00 98.2 61 18 141/97 04/26/17 22:00 63 04/26/17 20:15 100 Nasal Cannula 3.00 04/26/17 20:00 63 04/26/17 20:00 98.2 54 14 118/80 100 04/26/17 18:00 60 04/26/17 16:00 98.6 62 17 145/97 100 04/26/17 16:00 62 04/26/17 14:00 62 04/26/17 13:18 98 Nasal Cannula 2.00 I/O 04/26/17 04/26/17 04/26/17 04/27/17 04/27/17 04/27/17 06:59 14:59 22:59 06:59 14:59 22:59 Intake Total 329 ml 988 ml 586 ml 362 ml Output Total 110 ml 195 ml 150 ml 203 ml Balance 219 ml 793 ml 436 ml 159 ml Intake Oral 420 ml 250 ml 100 ml IV Total 329 ml 568 ml 336 ml 262 ml Output Urine Total 100 ml 165 ml 150 ml 200 ml Drainage Total 10 ml 30 ml 3 ml # Bowel Movements 0 1 0 0 Result Diagram: 04/26/17 0620 04/26/17 0620 Other Results drains still in place left arm quite swollen -- will get fistulagram today Medications and IVs leaving MICU for cardiac floor (1400) has dialysis and fistulogram toady needs labs in am needs decision on remaining Ayala Martinez MD Apr 27, 2017 12:34
[2017-04-27] MEDS: DEXTROSE 5% IN WATE 1000ML INJ 1,000 ML IV SCH (18:30)
--- NOTE | 2017-04-27 18:38 | HHI.NPPN ---
Subjective General Problems: Anemia, Hypertension Renal Failure: End Stage Renal Disease History of Present Illness 27-year-old female with past medical history of hypertension, hypothyroidism, gastroesophageal reflux disease, history of chronic anemia, end-stage renal disease on hemodialysis two times per week, history of multiple renal transplants in the past who was admitted because of heavy vaginal bleeding after she had an IUD placed. I was called to see the patient for the management of dialysis. Additional Remarks Patient is alert, now eating, abd. pain and breathing better, clinically same. Review of Systems General Constitutional: Fatigue Cardiovascular Cardiac: MUIR Gastrointestinal Gastrointestinal: Abdominal Pain, Nausea & Vomiting, Diarrhea Objective Data Data 04/26/17 04/27/17 19:00 07:00 Intake Total 988 ml 948 ml Output Total 195 ml 353 ml Balance 793 ml 595 ml Intake Oral 420 ml 350 ml IV Total 568 ml 598 ml Output Urine Total 165 ml 350 ml Drainage Total 30 ml 3 ml # Bowel Movements 1 0 Vital Signs Date Time Temp Pulse Resp B/P Pulse Ox O2 Delivery O2 Flow Rate FiO2 04/27/17 12:00 97.7 60 14 145/91 100 04/27/17 12:00 64 04/27/17 10:00 60 04/27/17 08:42 94 Nasal Cannula 3.00 04/27/17 08:00 64 04/27/17 08:00 64 04/27/17 08:00 97.4 64 20 142/93 04/27/17 06:00 60 04/27/17 04:00 98.3 56 11 135/88 04/27/17 04:00 57 04/27/17 02:00 61 04/27/17 00:00 60 04/27/17 00:00 98.2 61 18 141/97 04/26/17 22:00 63 04/26/17 20:15 100 Nasal Cannula 3.00 04/26/17 20:00 63 04/26/17 20:00 98.2 54 14 118/80 100 -: 04/26/17 0620 04/26/17 0620 Physical Exam General Appearance: Pale, Anxious Pulmonary Resp Exam: Breath Sounds Equal, Decreased Bases, Diminished Breath Sounds Cardiology CV Exam: Arrhythmia Gastrointestinal/Abdomen GI Exam: Soft, Positive Bowel Movement, Non-Distended Extremeties Extremities Exam: Trace Edema Neurologic Neuro Exam: Alert, Awake, Oriented, Obtunded Psychiatric Psych Exam: Appropriate Responses Assessment/Plan Assessment Summary: Anemia of CKD, Hypertension, End Stage Renal Disease, Transplant Kidney Status Problem List: (1) Hypertension (2) Hypothyroidism (3) History of CVA (cerebrovascular accident) (4) Renal transplant failure and rejection (5) End stage chronic kidney disease (6) Anemia (7) Sepsis Plan History of kidney transplant since age 4 first from the father subsequently mother these lasted for about 15 years and afterwards she received a cadaveric kidney transplant and she received 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 ID is following. Repeat CT pelvis noted. Now has drain inserted. Culture growing Enterobacter on prednisone 7.5 mg daily, got the injection of Nulojix on 04/20. Develop RVR, and now HR and BP better. HR and BP better now. Hgb. is stable. HD done, to get Fistulogram. Problem Qualifiers (1) Hypertension: Qualified Code: I10 - Essential hypertension (2) Hypothyroidism: Qualified Code: E03.9 - Hypothyroidism, unspecified type (3) Anemia: Qualified Code: N18.6 - Anemia in chronic kidney disease, on chronic dialysis Veronica Pichardo MD Apr 27, 2017 18:38
[2017-04-27] MEDS: METOPROLOL TARTRATE 50 MG TAB PO SCH (20:46)
[2017-04-28] VITALS (11 sets, daily range): BP systolic 130–187; BP diastolic 69–103; PULSE 65–97; RESP 18–20; TEMP 97.7–99.7; O2SAT 92–100
[2017-04-28] MEDS: MEROPENEM INJ 500 MG in SODIUM CHLORIDE 0.9% INJ 100 ML IV SCH ×2 (00:45→13:00)
[2017-04-28] MEDS: HYDROmorphone HCL PF 1 MG/ML VIAL IV PUSH PRN ×5 (01:07→20:29)
[2017-04-28] MEDS: CHLORHEXIDINE GLUCONATE 2 % 1 PACK (2 CLOTHS) TOP SCH (04:00)
[2017-04-28] MEDS: INSULIN NovoLIN REGULAR SUPPLEMENTAL SCALE SQ SCH ×6 (05:00→20:00)
[2017-04-28] MEDS: LEVOTHYROXINE SODIUM 25 MCG TAB PO SCH (05:01)
[2017-04-28 05:31] LABS: AUTOMATED NEUTROPHIL # 1.2 TH/MM3 (1.8-7.7); BASOPHIL # 0.1 TH/MM3 (0-0.2); BASOPHIL % 2.6 % (0.0-2.0); EOSINOPHIL # 0.1 TH/MM3 (0-0.4); EOSINOPHIL % 2.5 % (0.0-4.0); HEMATOCRIT 21.5 % (35.0-46.0); LYMPH % 7.5 % (9.0-44.0); LYMPHOCYTE # 0.2 TH/MM3 (1.0-4.8); MEAN CELL VOLUME 86.5 FL (80.0-100.0); MEAN CORPUSCULAR HGB CONC 33.6 % (32.0-36.0); MONO % 34.8 % (0.0-8.0); NEUT % 52.6 % (16.0-70.0); PLATELET COUNT 82 TH/MM3 (150-450); RED BLOOD COUNT 2.49 MIL/MM3 (4.00-5.30); RED CELL DISTRIBUTION WIDTH 22.9 % (11.6-17.2); WHITE BLOOD COUNT 2.2 TH/MM3 (4.0-11.0)
[2017-04-28 05:42] LABS: HEMO FLAGS AUTO DIFF
[2017-04-28 06:02] LABS: ALKALINE PHOSPHATASE 927 U/L (45-117); ALT (GPT) 9 U/L (10-53); ANION GAP 11 MEQ/L (5-15); AST (GOT) 33 U/L (15-37); BICARBONATE 28.4 MEQ/L (21.0-32.0); BLOOD UREA NITROGEN 28 MG/DL (7-18); CHLORIDE 95 MEQ/L (98-107); GLOMERULAR FILTRATION RATE 14 ML/MIN (>89); POTASSIUM 3.7 MEQ/L (3.5-5.1); SODIUM (NA) 134 MEQ/L (136-145); TOTAL BILIRUBIN ADULT 0.9 MG/DL (0.2-1.0)
[2017-04-28 07:59] LABS: BANDS 2 % (0-6); BASOPHILS 2 % (0-2); EOSINOPHILS 2 % (0-4); NEUTROPHIL # MANUAL DIFF 1.3 TH/MM3 (1.8-7.7); POLYS (SEG NEUTROPHILS) 59 % (16-70); WBC DIFF SAMPLE 100
[2017-04-28 08:00] LABS: PLATELET ESTIMATE SMEAR LOW (NORMAL); PLATELET MORPHOLOGY NORMAL (NORMAL); SCAN/DIFF FINAL DIFF MANUAL
[2017-04-28] MEDS: predniSONE 5 MG TAB PO SCH ×2 (09:00→17:00)
[2017-04-28] MEDS: ASPIRIN EC 81 MG TABEC PO SCH ×2 (09:00→17:01)
[2017-04-28] MEDS: NEOMYCIN/POLYMYXIN/BACITRACIN OINT 15 GM TUBE TOPICAL SCH ×2 (09:00→20:28)
[2017-04-28] MEDS: HEPARIN SODIUM - SQ 10,000 UNITS/ML VIAL SQ SCH ×2 (09:00→20:28)
[2017-04-28] MEDS: DOCUSATE SODIUM 50 MG/SENNA 8.6 MG TAB PO SCH ×2 (09:00→20:27)
[2017-04-28] MEDS: DULoxetine HCl DR 30 MG CAP PO SCH ×2 (09:00→17:00)
[2017-04-28] MEDS: VANCOMYCIN 500 MG VIAL (FOR ORAL USE ONLY) PO SCH ×4 (09:00→20:38)
[2017-04-28] MEDS: SODIUM CHLORIDE 0.9% FLUSH 10 ML FLUSH SCH ×2 (09:00→20:32)
[2017-04-28] MEDS: CHOLECALCIFEROL (VIT D3) 1000 UNIT TAB PO SCH ×2 (09:00→17:02)
[2017-04-28] MEDS: METOPROLOL TARTRATE 100 MG TAB PO SCH (09:05)
[2017-04-28] MEDS: FAMOTIDINE 20 MG/2 ML VIAL IV PUSH SCH ×2 (09:05→20:28)
[2017-04-28] MEDS: DRONEDARONE 400 MG TAB PO SCH ×2 (09:05→20:27)
[2017-04-28] MEDS ORDERED: DEXTROSE 50% IN WATER 50 ML SYRINGE ONE ×2 (10:40→12:07)
[2017-04-28] MEDS: FLUCONAZOLE 200 MG PREMIX BAG 100 ML IV SCH ×2 (10:47→17:02)
--- NOTE | 2017-04-28 12:26 | HHI.NPPN ---
Subjective General Problems: Anemia, Hypertension Renal Failure: End Stage Renal Disease History of Present Illness 27-year-old female with past medical history of hypertension, hypothyroidism, gastroesophageal reflux disease, history of chronic anemia, end-stage renal disease on hemodialysis two times per week, history of multiple renal transplants in the past who was admitted because of heavy vaginal bleeding after she had an IUD placed. I was called to see the patient for the management of dialysis. Additional Remarks Patient is alert, now NPO for the IR procedure, no SOB, abd. pain is better. Review of Systems General Constitutional: Fatigue Cardiovascular Cardiac: MUIR Gastrointestinal Gastrointestinal: Abdominal Pain, Nausea & Vomiting, Diarrhea Objective Data Data 04/27/17 04/28/17 19:00 07:00 Intake Total 940 ml Output Total 4000 ml 200 ml Balance -4000 ml 740 ml Intake Oral 240 ml IV Total 700 ml Output Urine Total 200 ml Hemodialysis 4000 ml # Bowel Movements 0 Vital Signs Date Time Temp Pulse Resp B/P Pulse Ox O2 Delivery O2 Flow Rate FiO2 04/28/17 08:00 99.7 89 18 130/81 92 04/28/17 04:08 21 04/28/17 04:00 Room Air 04/28/17 04:00 98.2 77 18 130/78 99 04/28/17 00:00 Room Air 04/28/17 00:00 97.7 97 18 136/98 100 04/27/17 20:15 63 04/27/17 20:00 97.2 63 18 149/95 100 04/27/17 20:00 Room Air 04/27/17 16:23 97.8 62 17 146/90 100 -: 04/28/17 0500 04/28/17 0500 Physical Exam General Appearance: Pale, Anxious Pulmonary Resp Exam: Breath Sounds Equal, Decreased Bases, Diminished Breath Sounds Cardiology CV Exam: Arrhythmia Gastrointestinal/Abdomen GI Exam: Soft, Positive Bowel Movement, Non-Distended Extremeties Extremities Exam: Trace Edema Neurologic Neuro Exam: Alert, Awake, Oriented, Obtunded Psychiatric Psych Exam: Appropriate Responses Assessment/Plan Assessment Summary: Anemia of CKD, Hypertension, End Stage Renal Disease, Transplant Kidney Status Problem List: (1) Hypertension (2) Hypothyroidism (3) History of CVA (cerebrovascular accident) (4) Renal transplant failure and rejection (5) End stage chronic kidney disease (6) Anemia (7) Sepsis Plan History of kidney transplant since age 4 first from the father subsequently mother these lasted for about 15 years and afterwards she received a cadaveric kidney transplant and she received 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 ID is following. Repeat CT pelvis noted. Now has drain inserted. Culture growing Enterobacter on prednisone 7.5 mg daily, got the injection of Nulojix on 04/20. Develop RVR, and now HR and BP better. HR and BP better now. Hgb. is stable. HD done yesterday. Now going for AVF fistulogram and abd. drain removal. HD will be in AM. Problem Qualifiers (1) Hypertension: Qualified Code: I10 - Essential hypertension (2) Anemia: Qualified Code: N18.6 - Anemia in chronic kidney disease, on chronic dialysis Veronica Pichardo MD Apr 28, 2017 12:26
[2017-04-28] MEDS ORDERED: fentaNYL CITRATE 250 MCG/5 ML AMP ONE (12:40)
[2017-04-28] MEDS ORDERED: MIDAZOLAM HCL 2 MG/2 ML VIAL ONE ×2 (13:02→13:36)
[2017-04-28] MEDS ORDERED: IOHEXOL 350 MG/ML 50 ML BTL (for RAD DIAG) ONE (14:07)
--- NOTE | 2017-04-28 14:14 | PD.RAD ---
Post Procedure Progress Note Pre Procedure Diagnosis: (1) Left arm swelling Post Procedure Diagnosis: (1) Left arm swelling Procedure Date: Apr 28, 2017 Supervising Radiologist: Elvis Tom JR Proceduralist/Assist: Ramirez Bender RT(R), Chava Amaya RT(R) Anesthesia: Conscious Sedation Plan of Activity Patient to Unit: ROPU Patient Condition: Good See PACS Report for procedural detail/treatment Vascular-Venous Procedure Procedure 1 Procedure(s): Angioplasty Access Access Site(s): Other Findings: Left upper extremity and central venogram shows patent AVF with good flow. Pt reports no problems with dialysis. Stenosis of brachiocephalic vein which responded well to CHILD CARE ASSISTANT Jr. Negro,Elvis Centeno MD Apr 28, 2017 14:14
--- NOTE | 2017-04-28 16:04 | RADRPT ---
EXAM DATE/TIME: 04/28/2017 12:46 [place] COMPARISON: No previous studies available for comparison. INDICATIONS : Patient with history of end-stage renal disease on hemodialysis utilizing a left arm AV graft. Patien t has left upper extremity swelling. Central venous stenosis suspected.. MEDICAL HISTORY : HTN, Hypothyroidism, GERD, Chronic anemia, Chronic immunosuppresion, Joint sepsis, CVA 2012, Hemodial ysis dependent, C-Diff, Hydronephrosis SURGICAL HISTORY : Renal transplants X5, Left knee surgery twice, Endometrial ablation, AV graft, Port placement ENCOUNTER: Initial ACUITY: 2 weeks PAIN SCORE: 0/10 FLUORO TIME: 3.9 minutes IMAGE SERIES: 7 ACCESS SITE: Left AV Graft SEDATION TIME: 60 minutes CONTRAST: 1.) 60 cc Omnipaque (iohexol) 350 MEDICATION(S): 1.) 3 mg midazolam (Versed) IV 2.) 250 mcg fentanyl (Sublimaze) IV DEVICE(S): 1.) Left brachiocephalic vein Systems Program Manager [id number] LIFE INSURANCE UNDERWRITER balloon 2.) Left brachiocephalic vein XXL Vascular [id number] 75CM LIFE INSURANCE UNDERWRITER balloon 3.) Left AV Graft Syvek PROCEDURE : 1. Ultrasound guided puncture of the venous limb of the fistula. 2. Angioplasty of the brachiocephalic vein 3. Left upper extremity venogram 4. conscious sedation with continuous monitoring. 5. Superior venacavogram. The risks, benefits and alternatives to the procedure were explained and verbal and written consent w as obtained. The site was prepped in sterile fashion. Full sterile technique was used, including ca p, mask, sterile gloves and gown and a large sterile sheet. Hand hygiene and 2% chlorhexidine and/or betadine/alcohol prep was utilized per protocol for cutaneous antisepsis. The skin and subcutaneous tissues were infiltrated with local anesthetic solution With ultrasound and fluoroscopic guidance the venous limb of the fistula was punctured directed towar d the venous anastomosis and a 7 Sinhala sheath was placed. A venogram through the arterial venous fi stula, left upper extremity, and superior vena cava were performed. These diagnostic images show a pa tent arterial venous fistula with patent venous anastomosis. There is a brachial artery to basilic ve in AV shunt. The left subclavian and axillary veins are patent. There is a high-grade stenosis involv ing the brachiocephalic vein with collateralization about the left neck. The SVC is patent. After the diagnostic images it was felt venoplasty of the brachiocephalic stenosis should be performe d to aid the patient's arm swelling. Initially a 10 mm venoplasty was performed. No significant waste noted on the balloon. Followup venogram shows improvement but significant residual stenosis. A 14 mm balloon was then utilized a waist noted which largely resolved with 8 atmospheres of pressure. A fol lowup venogram shows significant improvement but mild residual stenosis. Loss of opacification of man y of the collaterals noted. There is clearly an elastic component to the stenosis. Stenting was not f elt prudent at this time. The patient tolerated the procedure well and there were no complications. Conscious sedation was per formed with the prescribed dosages and duration as above in the presence of an independent trained ra diology nurse to assist in the monitoring of the patient. EKG and oximetry remained stable throughou t the procedure. 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 There is clearly an bijan stic component to this stenosis. If the stenosis recurs repeat venoplasty can be considered. If this becomes an ongoing issue stent placement may be needed. Elvis Tom Jr., MD on April 28, 2017 at 15:46 Board Certified Radiologist. This report was verified electronically.
--- NOTE | 2017-04-28 17:05 | HHI.PR ---
Subjective Remarks back from IR having pain, just had Dilaudid pt and father concerned about Cymbalta, want to know who and when it was ordered ; attempted to answer their questions loose stools today blood sugar low overnight 68, now 130's on D5W no cp no sob denies hallucinations Objective Objective Results - Vital Signs Date Time Temp Pulse Resp B/P Pulse Ox O2 Delivery O2 Flow Rate FiO2 04/28/17 16:00 98.4 76 18 159/92 95 04/28/17 15:25 71 18 180/103 100 04/28/17 14:55 70 20 187/69 97 04/28/17 14:25 98.3 65 18 166/79 98 04/28/17 12:24 99 04/28/17 12:00 98.9 74 18 142/91 98 04/28/17 08:00 99.7 89 18 130/81 92 04/28/17 04:08 21 04/28/17 04:00 Room Air 04/28/17 04:00 98.2 77 18 130/78 99 04/28/17 00:00 Room Air 04/28/17 00:00 97.7 97 18 136/98 100 04/27/17 20:15 63 04/27/17 20:00 97.2 63 18 149/95 100 04/27/17 20:00 Room Air I/O 04/27/17 04/27/17 04/27/17 04/28/17 04/28/17 04/28/17 07:00 15:00 23:00 07:00 15:00 23:00 Intake Total 362 ml 940 ml 0 ml Output Total 203 ml 4200 ml 400 ml Balance 159 ml -3260 ml -400 ml Intake Oral 100 ml 240 ml 0 ml IV Total 262 ml 700 ml Output Urine Total 200 ml 200 ml 400 ml Drainage Total 3 ml Hemodialysis 4000 ml # Bowel Movements 0 0 2 Result Diagram: 04/28/17 0500 04/28/17 0500 Imaging Last Impressions Pelvis CT 04/26/17 0000 Signed Impressions: Service Date/Time: Wednesday, April 26, 2017 16:38 - CONCLUSION: 1. Moderate interval improvement following percutaneous drainage catheter placement in right sided hydro/pyosalpinx although there is residual mild to moderate [place]/hydrosalpinx. 2. Stable left sided pelvic drainage catheter with stable mild prominence of the left fallopian tube. No significant residual drainable fluid collection. 3. Remainder of examination is unchanged. Jefferson Huynh MD Chest X-Ray 04/24/17 Signed Impressions: Service Date/Time: Monday, April 24, 2017 09:11 - CONCLUSION: 1. Increasing consolidation is on the right 2. Persistent mild interstitial edema present. Can Vidal MD FACR Abscess Drainage CT 04/24/17 Signed Impressions: Service Date/Time: Monday, April 24, 2017 14:06 - CONCLUSION: Uncomplicated CT guided drainage of a right anterior pelvic fluid collection. 160 mL of purulent material was obtained. Samples sent for evaluation. Elvis Tom Jr., MD Abdomen/Pelvis CT 04/22/17 Signed Impressions: Service Date/Time: Saturday, April 22, 2017 17:30 - CONCLUSION: The fluid collection adjacent to the left percutaneous drain has not changed since 2 days ago and multiseptated pyosalpinx on the right side has also not significantly changed. The rest of the examination has not changed. Tin Spencer MD Upper Extremity Ultrasound 04/19/17 0000 Signed Impressions: Service Date/Time: Wednesday, April 19, 2017 20:24 - CONCLUSION: No DVT in either upper extremity. Yusuf Jacob MD Pelvis Ultrasound 04/17/17 Signed Impressions: Service Date/Time: Monday, April 17, 2017 11:32 - CONCLUSION: There are complex adnexal masses bilaterally and a normal left ovary is not visualized, however the right ovary is visualized and the above-mentioned adnexal mass appears to be separate from it. Possibility of pyosalpinx should be entertained although the left ovary is not seen and therefore tubo-ovarian abscess in the left ovary is not excluded. Tin Spencer MD Pelvis MRI 04/15/17 0000 Signed Impressions: Service Date/Time: Saturday, April 15, 2017 18:39 - CONCLUSION: 1. The uterus is normal in appearance without obvious endometrial thickening or mass. 2. Normal appearing ovaries are not visualized. In the adnexal region bilaterally dilated tortuous tubular structures are seen with a cystic complex appearance concerning for bilateral hydrosalpinx and tubo-ovarian abscess formation given the extensive inflammatory changes should be considered. 3. Abnormal circumferential bowel wall thickening involving the rectum. 4. Right lower quadrant transplant kidney with hydronephrosis. Moe Aragon MD Other Results Laboratory Tests Test 04/28/17 05:00 White Blood Count 2.2 Red Blood Count 2.49 Hemoglobin 7.2 Hematocrit 21.5 Mean Corpuscular Volume 86.5 Mean Corpuscular Hemoglobin 29.0 Mean Corpuscular Hemoglobin 33.6 Concent Red Cell Distribution Width 22.9 Platelet Count 82 Mean Platelet Volume 9.4 Neutrophils (%) (Auto) 52.6 Lymphocytes (%) (Auto) 7.5 Monocytes (%) (Auto) 34.8 Eosinophils (%) (Auto) 2.5 Basophils (%) (Auto) 2.6 Neutrophils # (Auto) 1.2 Lymphocytes # (Auto) 0.2 Monocytes # (Auto) 0.8 Eosinophils # (Auto) 0.1 Basophils # (Auto) 0.1 CBC Comment AUTO DIFF Differential Total Cells 100 Counted Neutrophils % (Manual) 59 Band Neutrophils % 2 Lymphocytes % 11 Monocytes % 24 Eosinophils % 2 Basophils % 2 Neutrophils # (Manual) 1.3 Differential Comment FINAL DIFF MANUAL Platelet Estimate LOW Platelet Morphology Comment NORMAL Sodium Level 134 Potassium Level 3.7 Chloride Level 95 Carbon Dioxide Level 28.4 Anion Gap 11 Blood Urea Nitrogen 28 Creatinine 3.86 Estimat Glomerular Filtration 14 Rate Random Glucose 82 Calcium Level 8.0 Total Bilirubin 0.9 Aspartate Amino Transf 33 (AST/SGOT) Alanine Aminotransferase 9 (ALT/SGPT) Alkaline Phosphatase 927 Total Protein 4.5 Albumin 1.9 Thyroid Stimulating Hormone 4.390 3rd Gen Date/Time Procedure Status Source Growth 04/25/17 10:40 Aerobic Blood Culture - Preliminary Resulted Blood Other NO GROWTH IN 3 DAYS 04/25/17 10:40 Anaerobic Blood Culture - Preliminary Resulted Blood Other NO GROWTH IN 3 DAYS 04/24/17 14:20 Gram Stain - Final Complete Abscess Other 04/24/17 14:20 Wound Culture - Final Complete Enterobacter Cloacae ROS General: Weakness, Other (left arm swelling and pain ) HEENT: No: Sore Throat, Dysphagia Cardiac: No: Chest Pain, Edema, Palpitations Pulmonary: No: Cough, SOB, Wheezing GI: Diarrhea, No: Abdominal Pain, BM, N/V /BUTTER LIQUEFIER: No: Dysuria, Urgency Neuro/MS: No: Lightheaded, Confusion Psych: No: Anxiety, Depression Skin: No: Itching, Rash Physical Exam Physical Exam GENERAL: This is a well-nourished, well-developed patient, in no apparent distress. SKIN: No rashes, ecchymoses or lesions. Cool and dry. HEAD: Atraumatic. Normocephalic. No temporal or scalp tenderness. EYES: Pupils equal round and reactive. Extraocular motions intact. No scleral icterus. No injection or drainage. ENT: Nose without bleeding, purulent drainage or septal hematoma. Throat without erythema, tonsillar hypertrophy or exudate. Uvula midline. Airway patent. NECK: Trachea midline. No JVD or lymphadenopathy. Supple, nontender, no meningeal signs. CARDIOVASCULAR: Regular rate and rhythm without murmurs, gallops, or rubs. RESPIRATORY: Essentially clear, slightly diminished at bases. GASTROINTESTINAL: Abdomen soft, mildly tender, nondistended. No hepato- splenomegaly, or palpable masses. No guarding. Has 2 percutaneous drain with scant serosanguineous drainage. MUSCULOSKELETAL: Extremities without clubbing, cyanosis, or edema. No joint tenderness, effusion, or edema noted. No calf tenderness. Negative Homans sign bilaterally. Left arm edematous, left AVS noted. NEUROLOGICAL: Awake, alert oriented 3. No focal deficits. Urinary Catheter: Yes Assessment to: Continue May insert reason: Measure Accurate Output A/P Diagnosis: (1) TOA (tubo-ovarian abscess) (2) Sepsis (3) Hypertension (4) History of CVA (cerebrovascular accident) (5) End stage chronic kidney disease (6) Thrombocytopenia (7) S/P endometrial ablation (8) History of renal transplant (9) Hypothyroidism (10) Anemia (11) Menorrhagia Assessment and Plan 27-year-old female with multiple comorbidities, end-stage renal disease and previous renal transplant and failure, menorrhagia. Presented to emergency room with sepsis, found with bilateral TOAs. Underwent CT-guided percutaneous drainage of left and right tubo-ovarian abscesses. Positive for C. difficile colitis -Continue with antibiotics -Continue vancomycin by mouth Infectious disease following -IR managing drains, they are to remain in place. Menorrhagia, bilateral TOAs Status post ablation Dr. Espinoza continues to follow patient Status post left knee debridement, has Rosie 1 infection ID following and managing End-stage renal disease Hemodialysis per nephrology Left arm swelling, went to IR today for venogram shows patent AVF with good flow.Stenosis of brachiocephalic vein which responded well to INSIDE SALES PROFESSIONAL Anemia, likely secondary to sepsis Thrombocytopenia Patient has received multiple blood products Hematology oncology following -HH 7.2/21.5 -plat 82 Hypertension, stable Continue with medications-metoprolol and hydralazine ICU delirium, appears to be resolving Metabolic encephalopathy Continue to monitor neuro status Patient currently on melatonin 5 mg daily at bedtime when necessary Hypothyroidism Continue with medications Ventricular bigeminy, has resolved Continuous cardiac telemetry -Continue with beta anny -continue Amiodarone Continue with physical therapy for evaluation Continue with Heparin 5000 units subcutaneous twice a day for DVT prophylaxis Labs in am will mark may in am D/W RN D/W pt and father D/W Dr. Maza This patient was seen by myself and Dr. Maza, this note is written on his behalf Problem Qualifiers (1) Hypertension: Qualified Code: I10 - Essential hypertension (2) Hypothyroidism: Qualified Code: E03.9 - Hypothyroidism, unspecified type (3) Anemia: Qualified Code: N18.6 - Anemia in chronic kidney disease, on chronic dialysis (4) Menorrhagia: Qualified Code: N92.4 - Excessive bleeding in premenopausal period Jacque Obando Apr 28, 2017 17:05
[2017-04-28] MEDS: DEXTROSE 5% IN WATE 1000ML INJ 1,000 ML IV SCH (18:26)
--- NOTE | 2017-04-28 18:54 | HHI.PR ---
Subjective Remarks sleeping soundly after having stenosis re opened by Dr. Tom today. Drains were also flushed and left in pelvis. Objective - Vital Signs Date Time Temp Pulse Resp B/P Pulse Ox O2 Delivery O2 Flow Rate FiO2 04/28/17 16:00 98.4 76 18 159/92 95 04/28/17 15:25 71 18 180/103 100 04/28/17 14:55 70 20 187/69 97 04/28/17 14:25 98.3 65 18 166/79 98 04/28/17 12:24 99 04/28/17 12:00 98.9 74 18 142/91 98 04/28/17 09:00 98 Room Air 04/28/17 08:00 99.7 89 18 130/81 92 04/28/17 04:08 21 04/28/17 04:00 Room Air 04/28/17 04:00 98.2 77 18 130/78 99 04/28/17 00:00 Room Air 04/28/17 00:00 97.7 97 18 136/98 100 04/27/17 20:15 63 04/27/17 20:00 97.2 63 18 149/95 100 04/27/17 20:00 Room Air I/O 04/27/17 04/27/17 04/27/17 04/28/17 04/28/17 04/28/17 07:00 15:00 23:00 07:00 15:00 23:00 Intake Total 362 ml 940 ml 0 ml Output Total 203 ml 4200 ml 400 ml Balance 159 ml -3260 ml -400 ml Intake Oral 100 ml 240 ml 0 ml IV Total 262 ml 700 ml Output Urine Total 200 ml 200 ml 400 ml Drainage Total 3 ml Hemodialysis 4000 ml # Bowel Movements 0 0 2 Result Diagram: 04/28/17 0500 04/28/17 0500 A/P Assessment and Plan platelets improving could still use 2 units RBCs kidney status unclear- likely compromised by the sepsis and ongoing events would like to avoid any other procedures. Hopefully flushing of drains will promote further diminution of abcess Ayala Espinoza MD Apr 28, 2017 18:54
[2017-04-28] MEDS: METOPROLOL TARTRATE 50 MG TAB PO SCH (20:27)
[2017-04-28] MEDS: SODIUM CHLORIDE 0.9% FLUSH 10 ML FLUSH PRN (20:32)
[2017-04-29] VITALS (16 sets, daily range): BP systolic 139–160; BP diastolic 74–99; PULSE 71–113; RESP 16–20; TEMP 98.2–98.9; O2SAT 94–99
[2017-04-29] MEDS: MEROPENEM INJ 500 MG in SODIUM CHLORIDE 0.9% INJ 100 ML IV SCH ×2 (00:50→14:34)
[2017-04-29] MEDS: HYDROmorphone HCL PF 1 MG/ML VIAL IV PUSH PRN ×3 (00:52→09:33)
[2017-04-29] MEDS: SODIUM CHLORIDE 0.9% FLUSH 10 ML FLUSH PRN ×3 (00:52→22:44)
[2017-04-29] MEDS: INSULIN NovoLIN REGULAR SUPPLEMENTAL SCALE SQ SCH ×6 (04:00→20:00)
[2017-04-29] MEDS: CHLORHEXIDINE GLUCONATE 2 % 1 PACK (2 CLOTHS) TOP SCH (04:00)
[2017-04-29] MEDS: LEVOTHYROXINE SODIUM 25 MCG TAB PO SCH (05:09)
[2017-04-29 05:26] LABS: AUTOMATED NEUTROPHIL # 1.8 TH/MM3 (1.8-7.7); BASOPHIL % 1.5 % (0.0-2.0); EOSINOPHIL # 0.1 TH/MM3 (0-0.4); EOSINOPHIL % 1.8 % (0.0-4.0); LYMPH % 9.9 % (9.0-44.0); LYMPHOCYTE # 0.3 TH/MM3 (1.0-4.8); MEAN CELL VOLUME 86.5 FL (80.0-100.0); MEAN CORPUSCULAR HEMOGLOBIN 29.3 PG (27.0-34.0); MEAN CORPUSCULAR HGB CONC 33.8 % (32.0-36.0); MONO % 31.7 % (0.0-8.0); NEUT % 55.1 % (16.0-70.0); PLATELET COUNT 85 TH/MM3 (150-450); RED BLOOD COUNT 2.25 MIL/MM3 (4.00-5.30); RED CELL DISTRIBUTION WIDTH 22.3 % (11.6-17.2); WHITE BLOOD COUNT 3.3 TH/MM3 (4.0-11.0)
[2017-04-29 05:27] LABS: HEMO FLAGS AUTO DIFF
[2017-04-29 05:32] LABS: HEMATOCRIT 19.5 % (35.0-46.0)
[2017-04-29 05:54] LABS: BICARBONATE 27.3 MEQ/L (21.0-32.0); POTASSIUM 3.9 MEQ/L (3.5-5.1)
[2017-04-29 06:54] LABS: BANDS 4 % (0-6); EOSINOPHILS 3 % (0-4); NEUTROPHIL # MANUAL DIFF 2.1 TH/MM3 (1.8-7.7); POLYS (SEG NEUTROPHILS) 60 % (16-70); WBC DIFF SAMPLE 100
[2017-04-29 06:55] LABS: OVALOCYTES 1+ (NORMAL); PLATELET ESTIMATE SMEAR LOW (NORMAL); PLATELET MORPHOLOGY NORMAL (NORMAL); SCAN/DIFF FINAL DIFF MANUAL; STOMATOCYTES 1+ (NORMAL)
[2017-04-29] MEDS: VANCOMYCIN 500 MG VIAL (FOR ORAL USE ONLY) PO SCH ×4 (09:00→21:58)
--- NOTE | 2017-04-29 10:37 | HHI.NPPN ---
Subjective General Problems: Anemia, Hypertension Renal Failure: End Stage Renal Disease History of Present Illness 27-year-old female with past medical history of hypertension, hypothyroidism, gastroesophageal reflux disease, history of chronic anemia, end-stage renal disease on hemodialysis two times per week, history of multiple renal transplants in the past who was admitted because of heavy vaginal bleeding after she had an IUD placed. I was called to see the patient for the management of dialysis. Additional Remarks Patient is alert, now on HD, and not in distress. Review of Systems General Constitutional: Fatigue Cardiovascular Cardiac: MUIR Gastrointestinal Gastrointestinal: Abdominal Pain, Nausea & Vomiting, Diarrhea Objective Data Data 04/28/17 04/29/17 19:00 07:00 Intake Total 0 ml 720 ml Output Total 400 ml 750 ml Balance -400 ml -30 ml Intake Oral 0 ml 720 ml Output Urine Total 400 ml 750 ml # Bowel Movements 2 1 Vital Signs Date Time Temp Pulse Resp B/P Pulse Ox O2 Delivery O2 Flow Rate FiO2 04/29/17 04:00 98.4 76 18 154/94 96 04/29/17 00:00 98.9 79 18 152/94 97 04/28/17 20:15 80 04/28/17 20:00 98.9 80 18 149/89 94 04/28/17 20:00 Room Air 04/28/17 16:00 98.4 76 18 159/92 95 04/28/17 15:25 71 18 180/103 100 04/28/17 14:55 70 20 187/69 97 04/28/17 14:25 98.3 65 18 166/79 98 04/28/17 12:24 99 04/28/17 12:00 98.9 74 18 142/91 98 -: 04/29/17 0500 04/29/17 0500 Physical Exam General Appearance: Pale, Anxious Pulmonary Resp Exam: Breath Sounds Equal, Decreased Bases, Diminished Breath Sounds Cardiology CV Exam: Arrhythmia Gastrointestinal/Abdomen GI Exam: Soft, Positive Bowel Movement, Non-Distended Extremeties Extremities Exam: Trace Edema Neurologic Neuro Exam: Alert, Awake, Oriented, Obtunded Psychiatric Psych Exam: Appropriate Responses Assessment/Plan Assessment Summary: Anemia of CKD, Hypertension, End Stage Renal Disease, Transplant Kidney Status Problem List: (1) Hypertension (2) Hypothyroidism (3) History of CVA (cerebrovascular accident) (4) Renal transplant failure and rejection (5) End stage chronic kidney disease (6) Anemia (7) Sepsis Plan History of kidney transplant since age 4 first from the father subsequently mother these lasted for about 15 years and afterwards she received a cadaveric kidney transplant and she received 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 ID is following. Repeat CT pelvis noted. Now has drain inserted. Culture growing Enterobacter on prednisone 7.5 mg daily, got the injection of Nulojix on 04/20. Develop RVR, and now HR and BP better. HR and BP better now. Hgb. decreased and now transfused with HD. HD now, remove fluid as tolerated. Problem Qualifiers (1) Hypertension: Qualified Code: I10 - Essential hypertension (2) Hypothyroidism: Qualified Code: E03.9 - Hypothyroidism, unspecified type (3) Anemia: Qualified Code: N18.6 - Anemia in chronic kidney disease, on chronic dialysis Veronica Pichardo MD Apr 29, 2017 10:37
--- NOTE | 2017-04-29 11:03 | HHI.PR ---
Subjective Remarks seen in HD awakes to voice, oriented x 3 no hallucinations still with diarrhea, less frequent concerned about Dilaudid and becoming "addicted" wants to be tapered off left arm pain stable Objective Objective Results - Vital Signs Date Time Temp Pulse Resp B/P Pulse Ox O2 Delivery O2 Flow Rate FiO2 04/29/17 04:00 98.4 76 18 154/94 96 04/29/17 00:00 98.9 79 18 152/94 97 04/28/17 20:15 80 04/28/17 20:00 98.9 80 18 149/89 94 04/28/17 20:00 Room Air 04/28/17 16:00 98.4 76 18 159/92 95 04/28/17 15:25 71 18 180/103 100 04/28/17 14:55 70 20 187/69 97 04/28/17 14:25 98.3 65 18 166/79 98 04/28/17 12:24 99 04/28/17 12:00 98.9 74 18 142/91 98 I/O 04/28/17 04/28/17 04/28/17 04/29/17 04/29/17 04/29/17 07:00 15:00 23:00 07:00 15:00 23:00 Intake Total 0 ml 480 ml 240 ml Output Total 400 ml 500 ml 250 ml 3000 ml Balance -400 ml -20 ml -10 ml -3000 ml Intake Oral 0 ml 480 ml 240 ml Output Urine Total 400 ml 500 ml 250 ml Hemodialysis 3000 ml # Bowel Movements 2 1 Result Diagram: 04/29/17 0500 04/29/17 0500 Imaging Last Impressions Pelvis CT 04/26/17 0000 Signed Impressions: Service Date/Time: Wednesday, April 26, 2017 16:38 - CONCLUSION: 1. Moderate interval improvement following percutaneous drainage catheter placement in right sided hydro/pyosalpinx although there is residual mild to moderate Greer/hydrosalpinx. 2. Stable left sided pelvic drainage catheter with stable mild prominence of the left fallopian tube. No significant residual drainable fluid collection. 3. Remainder of examination is unchanged. Jefferson Huynh MD Chest X-Ray 04/24/17 0000 Signed Impressions: Service Date/Time: Monday, April 24, 2017 09:11 - CONCLUSION: 1. Increasing consolidation is on the right 2. Persistent mild interstitial edema present. Can Vidal MD FACR Abscess Drainage CT 04/24/17 0000 Signed Impressions: Service Date/Time: Monday, April 24, 2017 14:06 - CONCLUSION: Uncomplicated CT guided drainage of a right anterior pelvic fluid collection. 160 mL of purulent material was obtained. Samples sent for evaluation. Elvis Tom Jr., MD Abdomen/Pelvis CT 04/22/17 0000 Signed Impressions: Service Date/Time: Saturday, April 22, 2017 17:30 - CONCLUSION: The fluid collection adjacent to the left percutaneous drain has not changed since 2 days ago and multiseptated pyosalpinx on the right side has also not significantly changed. The rest of the examination has not changed. Tin Spencer MD Upper Extremity Ultrasound 04/19/17 0000 Signed Impressions: Service Date/Time: Wednesday, April 19, 2017 20:24 - CONCLUSION: No DVT in either upper extremity. Yusuf Jacbo MD Pelvis Ultrasound 04/17/17 0000 Signed Impressions: Service Date/Time: Monday, April 17, 2017 11:32 - CONCLUSION: There are complex adnexal masses bilaterally and a normal left ovary is not visualized, however the right ovary is visualized and the above-mentioned adnexal mass appears to be separate from it. Possibility of pyosalpinx should be entertained although the left ovary is not seen and therefore tubo-ovarian abscess in the left ovary is not excluded. Tin Spencer MD Pelvis MRI 04/15/17 0000 Signed Impressions: Service Date/Time: Saturday, April 15, 2017 18:39 - CONCLUSION: 1. The uterus is normal in appearance without obvious endometrial thickening or mass. 2. Normal appearing ovaries are not visualized. In the adnexal region bilaterally dilated tortuous tubular structures are seen with a cystic complex appearance concerning for bilateral hydrosalpinx and tubo-ovarian abscess formation given the extensive inflammatory changes should be considered. 3. Abnormal circumferential bowel wall thickening involving the rectum. 4. Right lower quadrant transplant kidney with hydronephrosis. Moe Aragon MD Other Results Laboratory Tests Test 04/29/17 04/29/17 05:00 06:41 White Blood Count 3.3 Red Blood Count 2.25 Hemoglobin 6.6 Hematocrit 19.5 Mean Corpuscular Volume 86.5 Mean Corpuscular Hemoglobin 29.3 Mean Corpuscular Hemoglobin 33.8 Concent Red Cell Distribution Width 22.3 Platelet Count 85 Mean Platelet Volume 9.1 Neutrophils (%) (Auto) 55.1 Lymphocytes (%) (Auto) 9.9 Monocytes (%) (Auto) 31.7 Eosinophils (%) (Auto) 1.8 Basophils (%) (Auto) 1.5 Neutrophils # (Auto) 1.8 Lymphocytes # (Auto) 0.3 Monocytes # (Auto) 1.0 Eosinophils # (Auto) 0.1 Basophils # (Auto) 0.0 CBC Comment AUTO DIFF Differential Total Cells 100 Counted Neutrophils % (Manual) 60 Band Neutrophils % 4 Lymphocytes % 11 Monocytes % 22 Eosinophils % 3 Neutrophils # (Manual) 2.1 Differential Comment FINAL DIFF MANUAL Atypical Lymphocytes Platelet Estimate LOW Platelet Morphology Comment NORMAL Ovalocytes 1+ Stomatocytes 1+ Sodium Level 134 Potassium Level 3.9 Chloride Level 96 Carbon Dioxide Level 27.3 Anion Gap 11 Blood Urea Nitrogen 31 Creatinine 4.40 Estimat Glomerular Filtration 12 Rate Random Glucose 84 Calcium Level 7.7 Blood Type O NEGATIVE Antibody Screen POSITIVE Crossmatch Leukocyte-Reduced Red Blood Cells Blood Bank Comment Date/Time Procedure Status Source Growth 04/25/17 10:40 Aerobic Blood Culture - Preliminary Resulted Blood Other NO GROWTH IN 3 DAYS 04/25/17 10:40 Anaerobic Blood Culture - Preliminary Resulted Blood Other NO GROWTH IN 3 DAYS 04/24/17 14:20 Gram Stain - Final Complete Abscess Other 04/24/17 14:20 Wound Culture - Final Complete Enterobacter Cloacae ROS General: Weakness, No: Fatigue HEENT: No: Sore Throat, Dysphagia Cardiac: No: Chest Pain, Edema, Palpitations Pulmonary: No: Cough, SOB, Wheezing GI: Diarrhea, No: Abdominal Pain, BM, N/V /INSULATION PROFESSIONAL: Other (appetite poor ), No: Dysuria, Urgency Neuro/MS: Other (left arm pain ), No: Lightheaded, Confusion Psych: No: Anxiety, Depression Skin: No: Itching, Rash Physical Exam Physical Exam GENERAL: This is a well-nourished, well-developed patient, in no apparent distress. SKIN: No rashes, ecchymoses or lesions. Cool and dry. HEAD: Atraumatic. Normocephalic. No temporal or scalp tenderness. EYES: Pupils equal round and reactive. Extraocular motions intact. No scleral icterus. No injection or drainage. ENT: Nose without bleeding, purulent drainage or septal hematoma. Throat without erythema, tonsillar hypertrophy or exudate. Uvula midline. Airway patent. NECK: Trachea midline. No JVD or lymphadenopathy. Supple, nontender, no meningeal signs. CARDIOVASCULAR: Regular rate and rhythm without murmurs, gallops, or rubs. RESPIRATORY: Essentially clear, slightly diminished at bases. GASTROINTESTINAL: Abdomen soft, mildly tender, nondistended. No hepato- splenomegaly, or palpable masses. No guarding. Has 2 percutaneous drain with scant serosanguineous drainage. MUSCULOSKELETAL: Extremities without clubbing, cyanosis, or edema. No joint tenderness, effusion, or edema noted. No calf tenderness. Negative Homans sign bilaterally. Left arm edematous, left AVS noted. NEUROLOGICAL: Awakes to voice, alert oriented 3. No focal deficits. Urinary Catheter: Yes Assessment to: Remove A/P Diagnosis: (1) TOA (tubo-ovarian abscess) (2) Sepsis (3) Hypertension (4) History of CVA (cerebrovascular accident) (5) End stage chronic kidney disease (6) Thrombocytopenia (7) S/P endometrial ablation (8) History of renal transplant (9) Hypothyroidism (10) Anemia (11) Menorrhagia Assessment and Plan 27-year-old female with multiple comorbidities, end-stage renal disease and previous renal transplant and failure, menorrhagia. Presented to emergency room with sepsis, found with bilateral TOAs. Underwent CT-guided percutaneous drainage of left and right tubo-ovarian abscesses. Positive for C. difficile colitis -Continue with antibiotics -Continue vancomycin by mouth Infectious disease following -IR managing drains, they are to remain in place. They were flushed yesterday in IR Menorrhagia, bilateral TOAs Status post ablation Dr. Espinoza continues to follow patient Status post left knee debridement, has Rosie 1 infection ID following and managing End-stage renal disease Hemodialysis per nephrology Left arm swelling, went to IR 04/28 for venogram shows patent AVF with good flow.Stenosis of brachiocephalic vein which responded well to [employer] Anemia, likely secondary to sepsis Thrombocytopenia Patient has received multiple blood products Hematology oncology following -HH 6.6/19.2, 2 units PRBC given Hypertension, stable Continue with medications-metoprolol and hydralazine ICU delirium, appears to be resolving Metabolic encephalopathy Continue to monitor neuro status Patient currently on melatonin 5 mg daily at bedtime when necessary -no hallucinations, improving. Sleeping okay Concerned about using Dilaudid, will start weaning off Hypothyroidism Continue with medications Ventricular bigeminy, has resolved Continuous cardiac telemetry -Continue with beta anny -continue Amiodarone Continue with physical therapy for evaluation Continue with Heparin 5000 units subcutaneous twice a day for DVT prophylaxis DC may Labs in am condition guarded D/W RN D/W pt D/W Dr. Maza This patient was seen by myself and Dr. Maza, this note is written on his behalf Problem Qualifiers (1) Hypertension: Qualified Code: I10 - Essential hypertension (2) Hypothyroidism: Qualified Code: E03.9 - Hypothyroidism, unspecified type (3) Anemia: Qualified Code: N18.6 - Anemia in chronic kidney disease, on chronic dialysis (4) Menorrhagia: Qualified Code: N92.4 - Excessive bleeding in premenopausal period Jacque Obando Apr 29, 2017 11:03
[2017-04-29] MEDS: EPOETIN ALFA 10,000 UNITS/ML VIAL IV PRN (11:43)
[2017-04-29] MEDS: DOCUSATE SODIUM 50 MG/SENNA 8.6 MG TAB PO SCH ×2 (12:53→21:00)
[2017-04-29] MEDS: CHOLECALCIFEROL (VIT D3) 1000 UNIT TAB PO SCH (12:53)
[2017-04-29] MEDS: METOPROLOL TARTRATE 100 MG TAB PO SCH (12:53)
[2017-04-29] MEDS: ASPIRIN EC 81 MG TABEC PO SCH (12:53)
[2017-04-29] MEDS: HEPARIN SODIUM - SQ 10,000 UNITS/ML VIAL SQ SCH ×2 (12:54→21:58)
[2017-04-29] MEDS: DRONEDARONE 400 MG TAB PO SCH ×2 (12:54→21:56)
[2017-04-29] MEDS: FLUCONAZOLE 200 MG PREMIX BAG 100 ML IV SCH ×2 (12:55→13:19)
[2017-04-29] MEDS: SODIUM CHLORIDE 0.9% FLUSH 10 ML FLUSH SCH ×2 (12:55→22:18)
[2017-04-29] MEDS: FAMOTIDINE 20 MG/2 ML VIAL IV PUSH SCH ×2 (13:15→21:58)
[2017-04-29] MEDS: NEOMYCIN/POLYMYXIN/BACITRACIN OINT 15 GM TUBE TOPICAL SCH ×2 (14:40→21:59)
--- NOTE | 2017-04-29 15:05 | HHI.IDPN ---
Subjective Subjective Remarks Patient is a 27-year-old female, who has a complicated medical history, recently underwent procedure for severe menstrual bleeding. She underwent D&C and ablation around March 24. 2 days prior to admission she started having significant abdominal pain, and some nausea. She also has had some fever and chills. She had episodes of diarrhea, but that has resolved. She also noted some mucousy bloody vaginal drainage. She presented to the hospital, and imaging studies showed significant inflammatory changes in the pelvis and possibly tubo-ovarian abscess. She has the transplanted kidney with hydronephrosis. Since admission she has been febrile up to 103. Her blood pressure is okay. She still has significant abdominal pain. The pain is in the lower quadrant and it radiates to her back. She denies any respiratory complaint. Patient has renal failure, and is anuric. 2 blood cultures done on admission are now reported as growing Enterobacter. Patient also has had problem with her left knee. She initially had fracture of her left patella, and has had arthroscopic surgery. There was a culture done in May that had Rosie albicans. Patient apparently had been given Diflucan previously. The last time she had any surgery on that left knee here in this area was in August, and this was done at [facility]. Culture it looks like from that surgery did not grow anything. Patient was subsequently referred to a doctor in [place], and she underwent more extensive surgery to her left knee. Culture reportedly grew yeast, and the patient was given Cresemba by the infectious disease physician who saw her at [facility]. She has a follow-up appointment with that infectious disease doctor around end of April. Notes reviewed Temps ok Pain better Not much output from the 2 percutaneous drains Had HD today Feels overall better Appetite fair BM better Trying to transition to only oral pain meds Had angioplasty of her LUE AVF, swelling better LE edema better Antibiotics Meropenem Diflucan Vanco po Lines Port Past Medical History Hypothyroidism Hypertension GERD Endstage renal disease, on HD - diagnosis made when she was about 3 years old CVA in 2012 History of chronic steroid therapy. 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 Vital Signs Date Time Temp Pulse Resp B/P Pulse Ox O2 Delivery O2 Flow Rate FiO2 04/29/17 04:00 98.4 76 18 154/94 96 04/29/17 00:00 98.9 79 18 152/94 97 04/28/17 20:15 80 04/28/17 20:00 98.9 80 18 149/89 94 04/28/17 20:00 Room Air 04/28/17 16:00 98.4 76 18 159/92 95 04/28/17 15:25 71 18 180/103 100 04/28/17 04/28/17 04/29/17 15:00 23:00 07:00 Intake Total 0 ml 480 ml 240 ml Output Total 400 ml 500 ml 250 ml Balance -400 ml -20 ml -10 ml Intake Oral 0 ml 480 ml 240 ml Output Urine Total 400 ml 500 ml 250 ml # Bowel Movements 2 1 . Laboratory Tests Test 04/28/17 04/29/17 05:00 05:00 White Blood Count 2.2 TH/MM3 3.3 TH/MM3 Red Blood Count 2.49 MIL/MM3 2.25 MIL/MM3 Hemoglobin 7.2 GM/DL 6.6 GM/DL Hematocrit 21.5 % 19.5 % Mean Corpuscular Volume 86.5 FL 86.5 FL Mean Corpuscular Hemoglobin 29.0 PG 29.3 PG Mean Corpuscular Hemoglobin 33.6 % 33.8 % Concent Red Cell Distribution Width 22.9 % 22.3 % Platelet Count 82 TH/MM3 85 TH/MM3 Mean Platelet Volume 9.4 FL 9.1 FL Neutrophils (%) (Auto) 52.6 % 55.1 % Lymphocytes (%) (Auto) 7.5 % 9.9 % Monocytes (%) (Auto) 34.8 % 31.7 % Eosinophils (%) (Auto) 2.5 % 1.8 % Basophils (%) (Auto) 2.6 % 1.5 % Neutrophils # (Auto) 1.2 TH/MM3 1.8 TH/MM3 Lymphocytes # (Auto) 0.2 TH/MM3 0.3 TH/MM3 Monocytes # (Auto) 0.8 TH/MM3 1.0 TH/MM3 Eosinophils # (Auto) 0.1 TH/MM3 0.1 TH/MM3 Basophils # (Auto) 0.1 TH/MM3 0.0 TH/MM3 CBC Comment AUTO DIFF AUTO DIFF Differential Total Cells 100 100 Counted Neutrophils % (Manual) 59 % 60 % Band Neutrophils % 2 % 4 % Lymphocytes % 11 % 11 % Monocytes % 24 % 22 % Eosinophils % 2 % 3 % Basophils % 2 % Neutrophils # (Manual) 1.3 TH/MM3 2.1 TH/MM3 Differential Comment FINAL DIFF FINAL DIFF MANUAL MANUAL Platelet Estimate LOW LOW Platelet Morphology Comment NORMAL NORMAL Atypical Lymphocytes % Ovalocytes 1+ Stomatocytes 1+ Laboratory Tests Test 04/28/17 04/29/17 05:00 05:00 Sodium Level 134 MEQ/L 134 MEQ/L Potassium Level 3.7 MEQ/L 3.9 MEQ/L Chloride Level 95 MEQ/L 96 MEQ/L Carbon Dioxide Level 28.4 MEQ/L 27.3 MEQ/L Anion Gap 11 MEQ/L 11 MEQ/L Blood Urea Nitrogen 28 MG/DL 31 MG/DL Creatinine 3.86 MG/DL 4.40 MG/DL Estimat Glomerular Filtration 14 ML/MIN 12 ML/MIN Rate Random Glucose 82 MG/DL 84 MG/DL Calcium Level 8.0 MG/DL 7.7 MG/DL Total Bilirubin 0.9 MG/DL Aspartate Amino Transf 33 U/L (AST/SGOT) Alanine Aminotransferase 9 U/L (ALT/SGPT) Alkaline Phosphatase 927 U/L Total Protein 4.5 GM/DL Albumin 1.9 GM/DL Thyroid Stimulating Hormone 4.390 uIU/ML 3rd Gen Imaging Pelvis CT 04/26/17 0000 Signed Impressions: Service Date/Time: Wednesday, April 26, 2017 16:38 - CONCLUSION: 1. Moderate interval improvement following percutaneous drainage catheter placement in right sided hydro/pyosalpinx although there is residual mild to moderate Bowdle/hydrosalpinx. 2. Stable left sided pelvic drainage catheter with stable mild prominence of the left fallopian tube. No significant residual drainable fluid collection. 3. Remainder of examination is unchanged. Jefferson Huynh MD ons Abdomen/Pelvis CT 04/20/17 0000 Signed Impressions: Service Date/Time: Thursday, April 20, 2017 18:16 - CONCLUSION: 1. The complex fluid collection left adnexa has significantly decreased in size. 2. Stable findings as above. Yusuf Jacob MD Abscess Drainage CT 04/19/17 0957 Signed Impressions: Service Date/Time: Wednesday, April 19, 2017 11:12 - CONCLUSION: Uncomplicated CT guided drainage. Galdino Heredia MD Abdomen/Pelvis CT 04/18/17 0000 Signed Impressions: Service Date/Time: Tuesday, April 18, 2017 16:08 - CONCLUSION: 1. Stable bilateral adnexal complex cystic masses/collections. 2. Hepatosplenomegaly. 3. Tiny bilateral pleural effusions with adjacent bilbasilar atelectasis. 4. Tiny pericardial effusion. 5. Cardiomegaly. Mikael León MD Pelvis Ultrasound 04/17/17 0000 Signed Impressions: Service Date/Time: Monday, April 17, 2017 11:32 - CONCLUSION: There are complex adnexal masses bilaterally and a normal left ovary is not visualized, however the right ovary is visualized and the above-mentioned adnexal mass appears to be separate from it. Possibility of pyosalpinx should be entertained although the left ovary is not seen and therefore tubo-ovarian abscess in the left ovary is not excluded. Tin Spencer MD Chest X-Ray 04/16/17 0000 Signed Impressions: Service Date/Time: Sunday, April 16, 2017 03:44 - CONCLUSION: No acute disease Chris Myrick MD Pelvis MRI 04/15/17 0000 Signed Impressions: Service Date/Time: Saturday, April 15, 2017 18:39 - CONCLUSION: 1. The uterus is normal in appearance without obvious endometrial thickening or mass. 2. Normal appearing ovaries are not visualized. In the adnexal region bilaterally dilated tortuous tubular structures are seen with a cystic complex appearance concerning for bilateral hydrosalpinx and tubo-ovarian abscess formation given the extensive inflammatory changes should be considered. 3. Abnormal circumferential bowel wall thickening involving the rectum. 4. Right lower quadrant transplant kidney with hydronephrosis. Moe Aragon MD Physical Exam GENERAL: awake, up in chair, eating her lunch SKIN: Warm and dry. No generalized rash HEAD: Atraumatic. Normocephalic. No temporal wasting, or tenderness. EYES: [place] conjunctiva. No petechia or hemorrhage. No scleral icterus. No injection or drainage. EARS, NOSE AND THROAT: Nose without bleeding or purulent nasal discharge. Mucous membranes pink and moist. No oral lesions noted. NECK: Trachea midline. Supple and not tender, no meningeal signs CARDIOVASCULAR: Regular rate and rhythm. No murmurs, rubs or gallops heard RESPIRATORY: Clear to auscultation. No rales, wheezing or rhonchi. Decreased at bases. Port in R upper chest, no evidence of infection ABDOMEN: Distended, hypoactive bowel sounds has scars compatible with multiple abdominal surgeries, mild abdominal tenderness. Drains [address] not much in bag, old blood EXTREMITIES: No clubbing, cyanosis. No pedal edema. Her L knee has improving effusion, healed incisions with some scabs present. Improved swelling LUE NEUROLOGICAL: Non-focal PSYCHIATRIC: cooperative. LINE: Port with no evidence of infection Assessment & Plan Remarks IMPRESSION Enterobacter sepsis, due to TOA - has [address] - recent D and C, and ablation for heavy bleeding; not sexually active - has some rectal wall thickening - has port Recurrent fevers, ?source, resolved since second drain placed ESRD, previous transplant x 5, last one done 2014 - on HD had AVG in her L upper arm Infection L knee, with yeast , OR end of January, has been on Cresemba, clinically improving C diff colitis Pancytopenia, stable - leukopenia, ?due to meds (Zosyn, Flagyl), ?due to infection, better RECOMMENDATION Continue Meropenem Continue Diflucan for her knee infection - C/S from [place] reviewed - had Rosie albicans and sensitive to Diflucan and echinocandins Continue po VAnco for C diff Monitor progress Improving Spoke with mother Aury Cannon MD Apr 29, 2017 15:05
--- NOTE | 2017-04-29 17:42 | HHI.PR ---
Subjective Remarks Shilpa is lucid and animated but in significant lower abdomenal pain and lower back pain. Last pain medication was dilaudid 0.5 at 9 am. She voiced concern to her attending about possibly becoming opioid addicted. She most definitely is opioid dependent after two weeks and we discussed weaning. Nothing since 9 am is a bit abrupt and will give 0.5 dilaudid now and then stop it. She has oxy ordered and knows it is four hours prn. She will let us know if inadequate. Goal is to wean in next several days. She is concerned about not receiving her epogen has she usually does twice weekly. Will order and resume today. We reviewed indications for cymbalta discussed going over all meds tomorrow and will discuss with Ms. Obando and hospitalists. wants to wait until am for may removal which seems reasonable Objective - Vital Signs Date Time Temp Pulse Resp B/P Pulse Ox O2 Delivery O2 Flow Rate FiO2 04/29/17 17:15 96 04/29/17 16:35 71 04/29/17 04:00 98.4 76 18 154/94 96 04/29/17 00:00 98.9 79 18 152/94 97 04/28/17 20:15 80 04/28/17 20:00 98.9 80 18 149/89 94 04/28/17 20:00 Room Air I/O 04/28/17 04/28/17 04/28/17 04/29/17 04/29/17 04/29/17 06:59 14:59 22:59 06:59 14:59 22:59 Intake Total 0 ml 480 ml 240 ml Output Total 400 ml 500 ml 250 ml 3000 ml Balance -400 ml -20 ml -10 ml -3000 ml Intake Oral 0 ml 480 ml 240 ml Output Urine Total 400 ml 500 ml 250 ml Drainage Total 0 ml Hemodialysis 3000 ml # Bowel Movements 2 1 Result Diagram: 04/29/17 0500 04/29/17 0500 Other Results abdomen not distended or tender NABS 400cc in may bag A/P Assessment and Plan would like to see her transfused once more hopefully epogen will help physical therapy to encourage ambulation wean opioids increase her autonomy and decision making for her care repeat CT to assess status of pelvic abcess on Tuesday. leave drains in place. Ayala Espinoza MD Apr 29, 2017 17:42
[2017-04-29] MEDS ORDERED: HYDROmorphone HCL PF 1 MG/ML VIAL IV PUSH PRN (18:00)
[2017-04-29] MEDS ORDERED: HYDROmorphone HCL PF 1 MG/ML VIAL IV PUSH ONE (18:00)
[2017-04-29] MEDS: EPOETIN ALFA 20,000 UNITS/ML VIAL SQ SCH (18:28)
[2017-04-29] MEDS: DEXTROSE 5% IN WATE 1000ML INJ 1,000 ML IV SCH (18:30)
[2017-04-29] MEDS: METOPROLOL TARTRATE 50 MG TAB PO SCH (21:57)
[2017-04-29] MEDS ORDERED: DILTIAZEM INJ 125 MG in SODIUM CHLORIDE 0.9% INJ 100 ML IV SCH (22:15)
[2017-04-29] MEDS ORDERED: DILTIAZEM HCL 25 MG/5 ML VIAL IVP ONE (22:15)
[2017-04-30] MEDS: MEROPENEM INJ 500 MG in SODIUM CHLORIDE 0.9% INJ 100 ML IV SCH ×2 (00:01→13:05)
[2017-04-30 04:00] VITALS: BP 152/92; PULSE 72; RESP 18; TEMP 98.3; O2SAT 96
[2017-04-30] MEDS: INSULIN NovoLIN REGULAR SUPPLEMENTAL SCALE SQ SCH ×6 (04:00→20:00)
[2017-04-30] MEDS: CHLORHEXIDINE GLUCONATE 2 % 1 PACK (2 CLOTHS) TOP SCH (04:00)
[2017-04-30] MEDS: LEVOTHYROXINE SODIUM 25 MCG TAB PO SCH (06:10)
[2017-04-30] MEDS: ONDANSETRON HCL 4 MG/2 ML VIAL IV PUSH PRN ×2 (06:32→13:01)
[2017-04-30 07:09] LABS: HEMATOCRIT 26.5 % (35.0-46.0); MEAN CELL VOLUME 86.5 FL (80.0-100.0); MEAN CORPUSCULAR HEMOGLOBIN 29.9 PG (27.0-34.0); MEAN CORPUSCULAR HGB CONC 34.5 % (32.0-36.0); PLATELET COUNT 125 TH/MM3 (150-450); RED BLOOD COUNT 3.06 MIL/MM3 (4.00-5.30); RED CELL DISTRIBUTION WIDTH 19.8 % (11.6-17.2); REVIEW FLAG FINAL; WHITE BLOOD COUNT 4.5 TH/MM3 (4.0-11.0)
[2017-04-30 07:32] LABS: ANION GAP 11 MEQ/L (5-15); BICARBONATE 30.4 MEQ/L (21.0-32.0); BLOOD UREA NITROGEN 16 MG/DL (7-18); CHLORIDE 96 MEQ/L (98-107); GLOMERULAR FILTRATION RATE 17 ML/MIN (>89); MAGNESIUM 1.8 MG/DL (1.5-2.5); POTASSIUM 3.4 MEQ/L (3.5-5.1); SODIUM (NA) 137 MEQ/L (136-145)
[2017-04-30 07:35] LABS: CREATINE KINASE 14 U/L (26-192)
[2017-04-30 08:00] VITALS: BP 156/80; PULSE 77; RESP 16; TEMP 98.4; O2SAT 95
--- NOTE | 2017-04-30 08:11 | HHI.PR ---
Subjective Remarks Sleeping soundly. good lively conversation yesterday pm but slightly confused around 9pm texting me she had a fib and needed that addressed. Had no symptoms and no monitor that she could see. Has been here too long! CBC much improved. I did not hear from her regarding discontinuance of dilaudid and availability of oxy prn. will stop by later. Objective - Vital Signs Date Time Temp Pulse Resp B/P Pulse Ox O2 Delivery O2 Flow Rate FiO2 04/30/17 04:00 98.3 72 18 152/92 96 04/30/17 04:00 Room Air 04/30/17 00:00 Room Air 04/29/17 23:54 95 16 148/96 98 04/29/17 23:39 88 16 148/99 99 04/29/17 23:24 88 16 145/91 98 04/29/17 23:21 84 04/29/17 23:09 96 16 150/94 98 04/29/17 22:51 95 16 139/74 96 04/29/17 22:46 95 04/29/17 22:41 98.8 111 16 153/99 97 04/29/17 21:58 Room Air 04/29/17 21:00 96 04/29/17 20:00 98.2 113 18 148/99 97 04/29/17 18:33 96 Room Air 04/29/17 17:15 96 04/29/17 16:35 71 04/29/17 16:00 98.7 98 20 160/95 98 I/O 04/29/17 04/29/17 04/29/17 04/30/17 04/30/17 04/30/17 07:00 15:00 23:00 07:00 15:00 23:00 Intake Total 240 ml 240 ml 480 ml 650 ml Output Total 250 ml 3275 ml 75 ml 150 ml Balance -10 ml -3035 ml 405 ml 500 ml Intake Oral 240 ml 240 ml 480 ml 650 ml Output Urine Total 250 ml 275 ml 75 ml 150 ml Drainage Total 0 ml Hemodialysis 3000 ml # Bowel Movements 2 Result Diagram: 04/30/17 0645 04/30/17 0645 Ayala Espinoza MD Apr 30, 2017 08:11
[2017-04-30] MEDS: SODIUM CHLORIDE 0.9% FLUSH 10 ML FLUSH SCH ×2 (09:00→20:40)
[2017-04-30] MEDS: NEOMYCIN/POLYMYXIN/BACITRACIN OINT 15 GM TUBE TOPICAL SCH ×2 (09:00→20:42)
[2017-04-30] MEDS: DULoxetine HCl DR 30 MG CAP PO SCH (10:04)
[2017-04-30] MEDS: METOPROLOL TARTRATE 100 MG TAB PO SCH (10:04)
[2017-04-30] MEDS: DOCUSATE SODIUM 50 MG/SENNA 8.6 MG TAB PO SCH ×2 (10:04→21:18)
[2017-04-30] MEDS: VANCOMYCIN 500 MG VIAL (FOR ORAL USE ONLY) PO SCH ×4 (10:04→21:17)
[2017-04-30] MEDS: CHOLECALCIFEROL (VIT D3) 1000 UNIT TAB PO SCH (10:04)
[2017-04-30] MEDS: predniSONE 5 MG TAB PO SCH (10:05)
[2017-04-30] MEDS: ASPIRIN EC 81 MG TABEC PO SCH (10:05)
[2017-04-30] MEDS: HEPARIN SODIUM - SQ 10,000 UNITS/ML VIAL SQ SCH ×2 (10:05→20:41)
[2017-04-30] MEDS: FAMOTIDINE 20 MG/2 ML VIAL IV PUSH SCH ×2 (10:05→20:41)
[2017-04-30] MEDS: DRONEDARONE 400 MG TAB PO SCH ×2 (10:06→20:40)
--- NOTE | 2017-04-30 10:17 | HHI.NPPN ---
Subjective General Problems: Anemia, Hypertension Renal Failure: End Stage Renal Disease History of Present Illness 27-year-old female with past medical history of hypertension, hypothyroidism, gastroesophageal reflux disease, history of chronic anemia, end-stage renal disease on hemodialysis two times per week, history of multiple renal transplants in the past who was admitted because of heavy vaginal bleeding after she had an IUD placed. I was called to see the patient for the management of dialysis. Additional Remarks Patient is alert, had HD yesterday, 3500 removed. Hemodynamically stable. Review of Systems General Constitutional: Fatigue Cardiovascular Cardiac: MUIR Gastrointestinal Gastrointestinal: Abdominal Pain, Nausea & Vomiting, Diarrhea Objective Data Data 04/29/17 04/30/17 19:00 07:00 Intake Total 240 ml 1130 ml Output Total 3275 ml 225 ml Balance -3035 ml 905 ml Intake Oral 240 ml 1130 ml Output Urine Total 275 ml 225 ml Drainage Total 0 ml Hemodialysis 3000 ml # Bowel Movements 2 Vital Signs Date Time Temp Pulse Resp B/P Pulse Ox O2 Delivery O2 Flow Rate FiO2 04/30/17 08:00 98.4 77 16 156/80 95 04/30/17 04:00 98.3 72 18 152/92 96 04/30/17 04:00 Room Air 04/30/17 00:00 Room Air 04/29/17 23:54 95 16 148/96 98 04/29/17 23:39 88 16 148/99 99 04/29/17 23:24 88 16 145/91 98 04/29/17 23:21 84 04/29/17 23:09 96 16 150/94 98 04/29/17 22:51 95 16 139/74 96 04/29/17 22:46 95 04/29/17 22:41 98.8 111 16 153/99 97 04/29/17 21:58 Room Air 04/29/17 21:00 96 04/29/17 20:00 98.2 113 18 148/99 97 04/29/17 18:33 96 Room Air 04/29/17 17:15 96 04/29/17 16:35 71 04/29/17 16:00 98.7 98 20 160/95 98 -: 04/30/17 0645 04/30/17 0645 Physical Exam General Appearance: Pale, Anxious Pulmonary Resp Exam: Breath Sounds Equal, Decreased Bases, Diminished Breath Sounds Cardiology CV Exam: Arrhythmia Gastrointestinal/Abdomen GI Exam: Soft, Positive Bowel Movement, Non-Distended Extremeties Extremities Exam: Trace Edema Neurologic Neuro Exam: Alert, Awake, Oriented, Obtunded Psychiatric Psych Exam: Appropriate Responses Assessment/Plan Assessment Summary: Anemia of CKD, Hypertension, End Stage Renal Disease, Transplant Kidney Status Problem List: (1) Hypertension (2) Hypothyroidism (3) History of CVA (cerebrovascular accident) (4) Renal transplant failure and rejection (5) End stage chronic kidney disease (6) Anemia (7) Sepsis Plan History of kidney transplant since age 4 first from the father subsequently mother these lasted for about 15 years and afterwards she received a cadaveric kidney transplant and she received 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 Enterobacter sepsis. Also on Diflucan. On oral Vancomycin for C.diff colitis. Epogen for anemia. Continue dialysis MWF. Problem Qualifiers (1) Hypertension: Qualified Code: I10 - Essential hypertension (2) Hypothyroidism: Qualified Code: E03.9 - Hypothyroidism, unspecified type (3) Anemia: Qualified Code: N18.6 - Anemia in chronic kidney disease, on chronic dialysis Jovany Guidry MD Apr 30, 2017 10:17
[2017-04-30 12:00] VITALS: BP 141/90; PULSE 96; RESP 20; TEMP 99; O2SAT 96
--- NOTE | 2017-04-30 13:21 | HHI.PR ---
Subjective Remarks Went into A. fib with RVR last night Currently on Cardizem at 5 an hour, converted to sinus rhythm, heart rate 80s Hemodynamically stable Did have palpitations, they are resolved now No chest pain No shortness of breath Has been weaning herself off Dilaudid, he still has some abdominal and left arm pain, using oxycodone Mother at bedside Objective Objective Results - Vital Signs Date Time Temp Pulse Resp B/P Pulse Ox O2 Delivery O2 Flow Rate FiO2 04/30/17 12:00 99.0 96 20 141/90 96 04/30/17 08:00 98.4 77 16 156/80 95 04/30/17 04:00 98.3 72 18 152/92 96 04/30/17 04:00 Room Air 04/30/17 00:00 Room Air 04/29/17 23:54 95 16 148/96 98 04/29/17 23:39 88 16 148/99 99 04/29/17 23:24 88 16 145/91 98 04/29/17 23:21 84 04/29/17 23:09 96 16 150/94 98 04/29/17 22:51 95 16 139/74 96 04/29/17 22:46 95 04/29/17 22:41 98.8 111 16 153/99 97 04/29/17 21:58 Room Air 04/29/17 21:00 96 04/29/17 20:00 98.2 113 18 148/99 97 04/29/17 18:33 96 Room Air 04/29/17 17:15 96 04/29/17 16:35 71 04/29/17 16:00 98.7 98 20 160/95 98 I/O 04/29/17 04/29/17 04/29/17 04/30/17 04/30/17 04/30/17 06:59 14:59 22:59 06:59 14:59 22:59 Intake Total 240 ml 240 ml 480 ml 650 ml Output Total 250 ml 3275 ml 75 ml 150 ml Balance -10 ml -3035 ml 405 ml 500 ml Intake Oral 240 ml 240 ml 480 ml 650 ml Output Urine Total 250 ml 275 ml 75 ml 150 ml Drainage Total 0 ml Hemodialysis 3000 ml # Bowel Movements 2 Result Diagram: 04/30/17 0645 04/30/17 0645 Imaging Last Impressions Pelvis CT 8/1/17 0000 Signed Impressions: Service Date/Time: Wednesday, April 26, 2017 16:38 - CONCLUSION: 1. Moderate interval improvement following percutaneous drainage catheter placement in right sided hydro/pyosalpinx although there is residual mild to moderate [place]/hydrosalpinx. 2. Stable left sided pelvic drainage catheter with stable mild prominence of the left fallopian tube. No significant residual drainable fluid collection. 3. Remainder of examination is unchanged. Jefferson Huynh MD Chest X-Ray 04/24/17 Signed Impressions: Service Date/Time: Monday, April 24, 2017 09:11 - CONCLUSION: 1. Increasing consolidation is on the right 2. Persistent mild interstitial edema present. Can Vidal MD FACR Abscess Drainage CT 04/24/17 Signed Impressions: Service Date/Time: Monday, April 24, 2017 14:06 - CONCLUSION: Uncomplicated CT guided drainage of a right anterior pelvic fluid collection. 160 mL of purulent material was obtained. Samples sent for evaluation. Elvis Tom Jr., MD Abdomen/Pelvis CT 04/22/17 0000 Signed Impressions: Service Date/Time: Saturday, April 22, 2017 17:30 - CONCLUSION: The fluid collection adjacent to the left percutaneous drain has not changed since 2 days ago and multiseptated pyosalpinx on the right side has also not significantly changed. The rest of the examination has not changed. Tin Spencer MD Upper Extremity Ultrasound 04/19/17 0000 Signed Impressions: Service Date/Time: Wednesday, April 19, 2017 20:24 - CONCLUSION: No DVT in either upper extremity. Yusuf Jacob MD Pelvis Ultrasound 04/17/17 0000 Signed Impressions: Service Date/Time: Monday, April 17, 2017 11:32 - CONCLUSION: There are complex adnexal masses bilaterally and a normal left ovary is not visualized, however the right ovary is visualized and the above-mentioned adnexal mass appears to be separate from it. Possibility of pyosalpinx should be entertained although the left ovary is not seen and therefore tubo-ovarian abscess in the left ovary is not excluded. Tin Spencer MD Pelvis MRI 04/15/17 0000 Signed Impressions: Service Date/Time: Saturday, April 15, 2017 18:39 - CONCLUSION: 1. The uterus is normal in appearance without obvious endometrial thickening or mass. 2. Normal appearing ovaries are not visualized. In the adnexal region bilaterally dilated tortuous tubular structures are seen with a cystic complex appearance concerning for bilateral hydrosalpinx and tubo-ovarian abscess formation given the extensive inflammatory changes should be considered. 3. Abnormal circumferential bowel wall thickening involving the rectum. 4. Right lower quadrant transplant kidney with hydronephrosis. Moe Aragon MD Other Results Laboratory Tests Test 04/30/17 04/30/17 00:51 06:45 Troponin I LESS THAN 0.02 LESS THAN 0.02 White Blood Count 4.5 Red Blood Count 3.06 Hemoglobin 9.1 Hematocrit 26.5 Mean Corpuscular Volume 86.5 Mean Corpuscular Hemoglobin 29.9 Mean Corpuscular Hemoglobin 34.5 Concent Red Cell Distribution Width 19.8 Platelet Count 125 Mean Platelet Volume 9.4 Sodium Level 137 Potassium Level 3.4 Chloride Level 96 Carbon Dioxide Level 30.4 Anion Gap 11 Blood Urea Nitrogen 16 Creatinine 3.18 Estimat Glomerular Filtration 17 Rate Random Glucose 78 Calcium Level 8.1 Magnesium Level 1.8 Total Creatine Kinase 14 ROS General: Weakness HEENT: No: Sore Throat, Dysphagia Cardiac: Palpitations Pulmonary: No: Cough, SOB, Wheezing GI: Abdominal Pain /EVISCERATOR: No: Dysuria, Urgency Neuro/MS: No: Lightheaded, Confusion Psych: No: Anxiety, Depression Skin: No: Itching, Rash Physical Exam Physical Exam GENERAL: This is a well-nourished, well-developed patient, in no apparent distress. SKIN: No rashes, ecchymoses or lesions. Cool and dry. HEAD: Atraumatic. Normocephalic. No temporal or scalp tenderness. EYES: Pupils equal round and reactive. Extraocular motions intact. No scleral icterus. No injection or drainage. ENT: Nose without bleeding, purulent drainage or septal hematoma. Throat without erythema, tonsillar hypertrophy or exudate. Uvula midline. Airway patent. NECK: Trachea midline. No JVD or lymphadenopathy. Supple, nontender, no meningeal signs. CARDIOVASCULAR: Regular rate and rhythm without murmurs, gallops, or rubs. RESPIRATORY: Essentially clear, slightly diminished at bases. GASTROINTESTINAL: Abdomen soft, mildly tender, nondistended. No hepato- splenomegaly, or palpable masses. No guarding. Has 2 percutaneous drain with scant serosanguineous drainage. MUSCULOSKELETAL: Left knee erythematous, has incision from recent surgery. No erythema. Bilateral lower extremities with trace pretibial edema, pedal pulses 2+. No calf tenderness. Negative Homans sign bilaterally. Left arm edematous, left AVS noted. NEUROLOGICAL: Awakes to voice, alert oriented 3. No focal deficits. Urinary Catheter: Yes Assessment to: Remove A/P Diagnosis: (1) TOA (tubo-ovarian abscess) (2) Sepsis (3) Hypertension (4) History of CVA (cerebrovascular accident) (5) End stage chronic kidney disease (6) Thrombocytopenia (7) S/P endometrial ablation (8) History of renal transplant (9) Hypothyroidism (10) Anemia (11) Menorrhagia (12) Atrial fibrillation with rapid ventricular response (13) Left arm swelling (14) Pancytopenia Assessment and Plan 27-year-old female with multiple comorbidities, end-stage renal disease and previous renal transplant and failure, menorrhagia. Presented to emergency room with sepsis, found with bilateral TOAs. Underwent CT-guided percutaneous drainage of left and right tubo-ovarian abscesses. Positive for C. difficile colitis -Continue with antibiotics -Continue vancomycin by mouth Infectious disease following -IR managing drains, they are to remain in place. They were flushed 8/ in IR Menorrhagia, bilateral TOAs Status post ablation Dr. Espinoza continues to follow patient Status post left knee debridement, has Rosie infection ID following and managing End-stage renal disease Hemodialysis per nephrology Left arm swelling, went to IR 04/28 for venogram shows patent AVF with good flow.Stenosis of brachiocephalic vein which responded well to ABSTRACT CLERK Anemia, likely secondary to sepsis Thrombocytopenia Patient has received multiple blood products Hematology oncology following -HH 6.6/19.2, 2 units PRBC given 8/4 -H&H stable, hemoglobin 9.1, hematocrit 26.5, platelets 125 Hypertension, stable Continue with medications-metoprolol and hydralazine ICU delirium, appears to be resolving Metabolic encephalopathy Continue to monitor neuro status Patient currently on melatonin 5 mg daily at bedtime when necessary -no hallucinations, improving. Sleeping okay -Weaning off Dilaudid slowly, continue with oxycodone Hypothyroidism Continue with medications Ventricular bigeminy, has resolved Continuous cardiac telemetry -Continue with beta anny -continue multaq A. fib with RVR overnight, has history with prior ablation per Dr. Ferguson Converted back to sinus rhythm, currently on Cardizem 5 mg an hour Continue with Multaq, beta blockers -Echo has been ordered -Serial cardiac enzymes, negative so far -Cardiology has been consulted Patient improving slowly Continue with physical therapy for evaluation Continue with Heparin 5000 units subcutaneous twice a day for DVT prophylaxis DC may today Replace K Labs in am condition guarded D/W RN D/W pt/mother D/W Dr. Maza This patient was seen by myself and Dr. Maza, this note is written on his behalf Problem Qualifiers (1) Hypertension: Qualified Code: I10 - Essential hypertension (2) Hypothyroidism: Qualified Code: E03.9 - Hypothyroidism, unspecified type (3) Anemia: Qualified Code: N18.6 - Anemia in chronic kidney disease, on chronic dialysis (4) Menorrhagia: Qualified Code: N92.4 - Excessive bleeding in premenopausal period Jacque Obando Apr 30, 2017 13:21
--- NOTE | 2017-04-30 13:57 | EKG ---
Date Performed: 04/29/2017 Time Performed: 22:35:52 PTAGE: 27 years EKG: ATRIAL FIBRILLATION WITH RAPID VENTRICULAR RESPONSE WITH ABERRANT CONDUCTION OR VENTRICULAR PREMATURE COMPLEXES ST DEVIATION AND MODERATE T-WAVE ABNORMALITY, CONSIDER ANTERIOR ISCHEMIA Compare d to previous tracing, the patient is now in an atrial fibrillation with a rapid ventricular response with occasional couplet PVCs present. ABNORMAL ECG PREVIOUS TRACING : 04/24/2017 11.03 DOCTOR: Beronica Hong Interpretating Date/Time 04/30/2017 13:56:09
--- NOTE | 2017-04-30 14:26 | PD.CONS ---
HPI Service Cardiology physicians Consult Requested By Dr. Harris Reason for Consult Afib RVR Primary Care Physician Alcides Monzon MD (Paul) History of Present Illness The patient is a 27 year old immunosupressed female known to Dr. Chowdary with a known cardiac history of atrial fibrillation s/p cardioversion on Multaq. The patient has had a complicated hospitalization. She developed atrial fibrillation with RVR yesterday. Cardizem drip was started and she converted back to NSR. The patient feels good this morning. Trying to wean from Dilaudid IV. (Aimee Enriquez) Review of Systems Consitutional: COMPLAINS OF: Fatigue, DENIES: Fever, Chills, Weight gain, Weight loss Eyes: DENIES: Amaurosis Fugax, Change in vision HEENT: DENIES: Lightheadedness, Change in hearing Respiratory: DENIES: See HPI, Cough, Snoring, Shortness of breath, Wheezing, Sputum production Cardiovascular: COMPLAINS OF: Palpitations, Tachycardia, DENIES: See HPI, Chest pain, Syncope Gastrointestinal: DENIES: Nausea, Vomiting, Change in bowel habits, Reflux, Bloody stools, Melena Genitourinary: DENIES: Urinary incontinence, Difficulty voiding Integumentary: DENIES: Rash Neurologic: DENIES: Tingling or numbness, Memory problems, Poor Balance, Stroke symptoms Musculoskeletal: DENIES: Joint pain, Muscle pain, Limited range of motion, Back pain Psychiatric: DENIES: Anxiety, Depression, Sleep disturbances Hematologic: DENIES: Bruising tendencies, Bleeding tendencies Endocrine: DENIES: Weight gain, Weight loss, Thyroid disease (Aimee Enriquez ) Past Family Social History Allergies: Coded Allergies: Gabapentin (Verified Allergy, Severe, 04/15/17) muscle spasms Past Medical History hypothyroidism hypertension GERD endstage renal failure history of CVA in 2013 hemodialysis dependent. history of chronic steroid therapy. atrial fibrillation Past Surgical History Renal transplants [address] Chowdary left knee surgery x 2-underwent arthroscopy in 08/2016 and had an open repair of the knee on 02/23/17 D&C with endometrial ablation on 03/24/2017 Reported Medications Reported Meds & Active Scripts Active Reported Clonidine (Clonidine HCl) 0.1 Mg Tab 0.1 Mg PO BID PRN Multaq (Dronedarone) 400 Mg Tab 400 Mg PO BID Macrobid (Nitrofurantoin Monoh/Nitrofur Macro) 100 Mg Cap 100 Mg PO Q12HR 7 Days Percocet (Oxycodone-Acetaminophen) 5-325 mg Tab 1-2 Tab PO Q6H PRN Zofran (Ondansetron HCl) 4 Mg Tab 4 Mg PO Q12HR PRN Colace (Docusate Sodium) 100 Mg Capsule 100 Mg PO DAILY Vitamin D-3 (Cholecalciferol) 2,000 Unit Tab 2,000 Units PO DAILY Aspirin Adult Low Strength (Aspirin) 81 Mg Tabdr 81 Mg PO DAILY Active Ordered Medications Current Medications Medications (Trade) Dose Ordered Sig/Mega Route Start Time Stop Time Status Last Admin (Ecotrin Ec) 81 mg DAILY PO 04/16/17 09:00 04/30/17 10:05 (Catapres) 0.1 mg BID PRN PO 04/15/17 18:45 (Multaq) 400 mg BID PO 04/15/17 21:00 04/30/17 10:06 (Vitamin D3) 2,000 units DAILY PO 04/16/17 09:00 04/30/17 10:04 (NS Flush) 2 ml UNSCH PRN .XX 04/15/17 19:00 04/29/17 22:44 (NS Flush) 2 ml BID .XX 04/15/17 21:00 04/29/17 22:18 (Tylenol) 650 mg Q6H PRN PO 04/15/17 19:00 04/17/17 23:57 (Zofran Inj) 4 mg Q6H PRN IV 04/15/17 19:00 Hold 04/21/17 05:27 (Heparin Inj) 5,000 units Q12H SQ 04/15/17 21:00 04/30/17 10:05 Miscellaneous Information 1 Q361D XX 04/15/17 19:00 (Chlorhexidine 2% Cloth) Taper DAILY@04 TOP 04/16/17 04:00 04/12/18 03:59 04/24/17 04:00 (Chlorhexidine 2% Cloth) 3 pack UNSCH PRN TOP 04/15/17 19:00 (Carlee-Colace) 1 tab BID PO 04/15/17 21:00 04/30/17 10:04 (Milk Of Magnesia Liq) 30 ml Q12H PRN PO 04/15/17 19:00 (Senokot) 17.2 mg Q12H PRN PO 04/15/17 19:00 (Dulcolax Supp) 10 mg DAILY PRN RECTAL 04/15/17 19:00 (Lactulose Liq) 30 ml DAILY PRN PO 04/15/17 19:00 (D50w (Vial) Inj) 25 ml UNSCH PRN IV PUSH 04/16/17 07:45 04/27/17 12:29 (NovoLIN R SUPPLEMENTAL SCALE) 1 Q4HR SQ 04/16/17 08:00 Famotidine 10 mg 10 mg Q12HR IV PUSH 04/16/17 21:00 04/30/17 10:05 (NS 1000 ml Inj) 1,000 ml @ 0 mls/hr Q0M PRN IV 04/17/17 11:10 04/25/17 11:14 Heparin Sodium (Porcine) 8000 units 8,000 units UNSCH PRN IVF 04/17/17 11:15 (NS 1000 ml Inj) 1,000 ml @ 0 mls/hr Q0M PRN IV 04/17/17 11:10 (Mannitol Inj) 12.5 gm UNSCH PRN IV 04/17/17 11:15 (Albumin 25% Inj) 25 gm UNSCH PRN IV 04/17/17 11:15 (NS Flush) 5 ml UNSCH PRN IV FLUSH 04/17/17 11:15 04/24/17 11:46 (Heparin Inj) UNSCH PRN .XX 04/17/17 11:15 (Gentamicin (Dialysis) Inj) 20 mg UNSCH PRN IV 04/17/17 11:15 (Zofran Inj) 4 mg UNSCH PRN IV 04/17/17 11:15 04/24/17 20:56 (Tylenol) 650 mg UNSCH PRN PO 04/17/17 11:15 (Benadryl) 25 mg UNSCH PRN PO 04/17/17 11:15 (Nitrostat Sl) 0.4 mg UNSCH PRN SL 04/17/17 11:15 (Catapres) 0.1 mg UNSCH PRN PO 04/17/17 11:15 (Gelfoam 12 Mm/7 Mm Top) 1 foam UNSCH PRN TOP 04/17/17 11:15 04/25/17 11:14 (Compazine Inj) 5 mg Q6H PRN IV PUSH 04/17/17 20:15 04/26/17 00:36 (VANCOMYCIN for oral use only) 500 mg QID PO 04/20/17 13:00 04/30/17 13:04 (Ativan Inj) 0.5 mg Q6H PRN IV PUSH 04/21/17 01:00 04/26/17 17:44 (Deltasone) 7.5 mg DAILY PO 04/20/17 19:30 04/30/17 10:05 (Pill Splitter) 1 ea UNSCH PRN OTHER 04/20/17 20:00 (Melatonin) 5 mg HS PRN PO 04/21/17 14:30 04/23/17 20:30 (Neosporin Oint) 1 applic Q12HR TOPICAL 04/21/17 21:00 04/30/17 09:00 (Ativan Inj) 0.5 mg HS PRN IV PUSH 04/21/17 20:15 04/26/17 21:29 (Synthroid) 25 mcg DAILY@0600 PO 04/23/17 06:00 04/30/17 06:10 (Zofran Inj) 4 mg Q6HR PRN IV PUSH 04/22/17 10:30 04/30/17 13:01 (Lopressor) 50 mg HS PO 04/23/17 21:00 04/29/17 21:57 Metoprolol Tartrate 100 mg 100 mg DAILY PO 04/24/17 09:00 04/30/17 10:04 Dextrose 1,000 ml @ 30 mls/hr Q24H IV 04/24/17 18:30 04/28/17 18:26 (Merrem Inj/NS Inj) 100 ml @ 200 mls/hr Q12H IV 04/25/17 13:00 04/30/17 13:05 Duloxetine HCl 30 mg 30 mg DAILY PO 04/26/17 09:00 04/30/17 10:04 (Diflucan 200 Mg Premix Bag) 100 ml @ 100 mls/hr DAILY@13 IV 04/29/17 13:00 04/29/17 13:19 (Roxicodone) 5 mg Q4H PRN PO 04/29/17 17:30 (Roxicodone) 10 mg Q4H PRN PO 04/29/17 17:30 04/30/17 10:04 Epoetin [place] 82996 units 20,000 units MoWeFr SQ 04/29/17 18:00 04/29/17 18:28 (Cardizem Inj/NS Inj) 125 ml @ 0 mls/hr TITRATE IV 04/29/17 22:15 Family History Father had AAA (Aimee Enriquez) Physical Exam Vital Signs Vital Signs Date Time Temp Pulse Resp B/P Pulse Ox O2 Delivery O2 Flow Rate FiO2 04/30/17 12:00 99.0 96 20 141/90 96 04/30/17 08:00 98.4 77 16 156/80 95 04/30/17 04:00 98.3 72 18 152/92 96 04/30/17 04:00 Room Air 04/30/17 00:00 Room Air 04/29/17 23:54 95 16 148/96 98 04/29/17 23:39 88 16 148/99 99 04/29/17 23:24 88 16 145/91 98 04/29/17 23:21 84 04/29/17 23:09 96 16 150/94 98 04/29/17 22:51 95 16 139/74 96 04/29/17 22:46 95 04/29/17 22:41 98.8 111 16 153/99 97 04/29/17 21:58 Room Air 04/29/17 21:00 96 04/29/17 20:00 98.2 113 18 148/99 97 04/29/17 18:33 96 Room Air 04/29/17 17:15 96 04/29/17 16:35 71 04/29/17 16:00 98.7 98 20 160/95 98 Physical Exam GENERAL: Appears older than her stated age SKIN: Warm and dry. HEAD: Normocephalic. Devin facies EYES: No scleral icterus. No injection or drainage. Mild exopthalous NECK: Supple, trachea midline. CARDIOVASCULAR: Regular rate and rhythm without murmurs, gallops, or rubs. RESPIRATORY: Breath sounds equal bilaterally. No accessory muscle use. GASTROINTESTINAL: Abdomen soft, non-tender, nondistended. MUSCULOSKELETAL: No cyanosis, or edema. Swollen left knee, healing BACK: Nontender without obvious deformity. . Laboratory Laboratory Tests Test 04/30/17 04/30/17 00:51 06:45 Troponin I LESS THAN 0.02 LESS THAN 0.02 White Blood Count 4.5 Red Blood Count 3.06 Hemoglobin 9.1 Hematocrit 26.5 Mean Corpuscular Volume 86.5 Mean Corpuscular Hemoglobin 29.9 Mean Corpuscular Hemoglobin 34.5 Concent Red Cell Distribution Width 19.8 Platelet Count 125 Mean Platelet Volume 9.4 Sodium Level 137 Potassium Level 3.4 Chloride Level 96 Carbon Dioxide Level 30.4 Anion Gap 11 Blood Urea Nitrogen 16 Creatinine 3.18 Estimat Glomerular Filtration 17 Rate Random Glucose 78 Calcium Level 8.1 Magnesium Level 1.8 Total Creatine Kinase 14 (Aimee Enriquez) Result Diagram: 04/30/17 0645 04/30/17 0645 Imaging Last 72 hours Impressions Angioplasty 04/28/17 0000 Signed Impressions: Service Date/Time: April 12:46 - CONCLUSION: 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 There is clearly an elastic component to this stenosis. If the stenosis recurs repeat venoplasty can be considered. If this becomes an ongoing issue stent placement may be needed. Elvis Tom Jr., MD (Aimee Enriquez) Assessment and Plan Assessment and Plan Recurrent atrial fibrillation, on Multaq. Converted to NSR with cardizem gtt. Has a history of cardioversion with Dr. Chowdary HTN Immunosuppressed Renal failure on dialysis Prolonged hospitalization PLAN: Transition off cardizem IV to PO Continue Multaq Dr. Chowdary will follow up on Tuesday Patient seen and evaluated by Dr Hong (Aimee Enriquez) Assessment and Plan The exam, history, and the medical decision-making described in the above note were completed with the assistance of the mid-level provider. I reviewed and agree with the findings presented. I attest that I had a [id number] encounter with the patient on the same day, and personally performed and documented my assessment and findings in the medical record. Pt doing much better now in sinus rhythm (Beronica Hong MD) Aimee Enriquez Apr 30, 2017 14:26 Beronica Hong MD May 01, 2017 17:05
[2017-04-30] MEDS: DILTIAZEM-CD 180 MG CAP ER PO SCH (14:37)
[2017-04-30] MEDS ORDERED: POTASSIUM CHLORIDE 25 MEQ EFFERVESCENT TAB PO ONE (15:00)
[2017-04-30 16:00] VITALS: BP 152/96; PULSE 68; RESP 20; TEMP 98.7; O2SAT 95
[2017-04-30 20:00] VITALS: BP 143/56; PULSE 59; RESP 16; TEMP 97.2; O2SAT 98
[2017-04-30] MEDS: DEXTROSE 5% IN WATE 1000ML INJ 1,000 ML IV SCH (20:39)
[2017-04-30] MEDS: METOPROLOL TARTRATE 50 MG TAB PO SCH (20:40)
[2017-04-30 20:47] VITALS: PULSE 64
[2017-05-01] VITALS (8 sets, daily range): BP systolic 138–164; BP diastolic 82–96; PULSE 60–69; RESP 18–19; TEMP 97.6–98.4; O2SAT 93–100
[2017-05-01] MEDS: MEROPENEM INJ 500 MG in SODIUM CHLORIDE 0.9% INJ 100 ML IV SCH ×2 (01:25→14:42)
[2017-05-01] MEDS: INSULIN NovoLIN REGULAR SUPPLEMENTAL SCALE SQ SCH ×6 (03:54→20:00)
[2017-05-01] MEDS: CHLORHEXIDINE GLUCONATE 2 % 1 PACK (2 CLOTHS) TOP SCH (03:54)
[2017-05-01] MEDS: LEVOTHYROXINE SODIUM 25 MCG TAB PO SCH (05:42)
[2017-05-01] MEDS: HEPARIN SODIUM - SQ 10,000 UNITS/ML VIAL SQ SCH ×2 (09:09→20:56)
[2017-05-01] MEDS: VANCOMYCIN 500 MG VIAL (FOR ORAL USE ONLY) PO SCH ×4 (09:09→20:56)
[2017-05-01] MEDS: DRONEDARONE 400 MG TAB PO SCH ×2 (09:10→20:55)
[2017-05-01] MEDS: FAMOTIDINE 20 MG/2 ML VIAL IV PUSH SCH ×2 (09:10→20:55)
[2017-05-01] MEDS: SODIUM CHLORIDE 0.9% FLUSH 10 ML FLUSH SCH ×2 (09:10→20:56)
[2017-05-01] MEDS: predniSONE 5 MG TAB PO SCH (09:11)
[2017-05-01] MEDS: DILTIAZEM-CD 180 MG CAP ER PO SCH (09:11)
[2017-05-01] MEDS: DOCUSATE SODIUM 50 MG/SENNA 8.6 MG TAB PO SCH ×2 (09:11→20:56)
[2017-05-01] MEDS: DULoxetine HCl DR 30 MG CAP PO SCH (09:11)
[2017-05-01] MEDS: METOPROLOL TARTRATE 100 MG TAB PO SCH (09:11)
[2017-05-01] MEDS: NEOMYCIN/POLYMYXIN/BACITRACIN OINT 15 GM TUBE TOPICAL SCH ×2 (09:12→20:57)
--- NOTE | 2017-05-01 09:23 | HHI.NPPN ---
Subjective General Problems: Anemia, Hypertension Renal Failure: End Stage Renal Disease History of Present Illness 27-year-old female with past medical history of hypertension, hypothyroidism, gastroesophageal reflux disease, history of chronic anemia, end-stage renal disease on hemodialysis two times per week, history of multiple renal transplants in the past who was admitted because of heavy vaginal bleeding after she had an IUD placed. I was called to see the patient for the management of dialysis. Additional Remarks Notes were reviewed. Failed renal transplant. On HD MWF. Afib with RVR 2 nights ago. C.diff colitis on treatment. Review of Systems General Constitutional: Fatigue Cardiovascular Cardiac: MUIR Gastrointestinal Gastrointestinal: Abdominal Pain, Nausea & Vomiting, Diarrhea Objective Data Data 04/30/17 05/01/17 19:00 07:00 Intake Total 720 ml 970 ml Output Total 400 ml 370 ml Balance 320 ml 600 ml Intake Oral 720 ml 650 ml IV Total 320 ml Output Urine Total 400 ml 370 ml # Bowel Movements 1 0 Vital Signs Date Time Temp Pulse Resp B/P Pulse Ox O2 Delivery O2 Flow Rate FiO2 05/01/17 04:00 97.6 61 19 164/85 98 05/01/17 04:00 Room Air 05/01/17 00:00 98.2 66 18 146/96 100 05/01/17 00:00 Room Air 04/30/17 20:47 64 04/30/17 20:00 Room Air 04/30/17 20:00 97.2 59 16 143/56 98 04/30/17 16:00 98.7 68 20 152/96 95 04/30/17 12:00 99.0 96 20 141/90 96 -: 04/30/17 0645 04/30/17 0645 Physical Exam General Appearance: Pale, Anxious Pulmonary Resp Exam: Breath Sounds Equal, Decreased Bases, Diminished Breath Sounds Cardiology CV Exam: Arrhythmia Gastrointestinal/Abdomen GI Exam: Soft, Positive Bowel Movement, Non-Distended Extremeties Extremities Exam: Trace Edema Neurologic Neuro Exam: Alert, Awake, Oriented, Obtunded Psychiatric Psych Exam: Appropriate Responses Assessment/Plan Assessment Summary: Anemia of CKD, Hypertension, End Stage Renal Disease, Transplant Kidney Status Problem List: (1) Hypertension (2) Hypothyroidism (3) History of CVA (cerebrovascular accident) (4) Renal transplant failure and rejection (5) End stage chronic kidney disease (6) Anemia (7) Sepsis Plan History of kidney transplant since age 4 first from the father subsequently mother these lasted for about 15 years and afterwards she received a cadaveric kidney transplant and she received 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 Enterobacter sepsis. Also on Diflucan. On oral Vancomycin for C.diff colitis. Epogen for anemia. Continue dialysis MWF. Dialysis tomorrow. Problem Qualifiers (1) Hypertension: Qualified Code: I10 - Essential hypertension (2) Hypothyroidism: Qualified Code: E03.9 - Hypothyroidism, unspecified type (3) Anemia: Qualified Code: N18.6 - Anemia in chronic kidney disease, on chronic dialysis Jovany Guidry MD May 01, 2017 09:23
--- NOTE | 2017-05-01 10:13 | HHI.PR ---
Subjective Remarks Pt without complaints, still not feeling hungry and not eating very much. Resting in bed. Pain under better control and weaning down on pain med doses. Has question regarding discharge planning, drains, and possible repeat imaging. Objective - Vital Signs Date Time Temp Pulse Resp B/P Pulse Ox O2 Delivery O2 Flow Rate FiO2 05/01/17 04:00 97.6 61 19 164/85 98 05/01/17 04:00 Room Air 05/01/17 00:00 98.2 66 18 146/96 100 05/01/17 00:00 Room Air 04/30/17 20:47 64 04/30/17 20:00 Room Air 04/30/17 20:00 97.2 59 16 143/56 98 04/30/17 16:00 98.7 68 20 152/96 95 04/30/17 12:00 99.0 96 20 141/90 96 I/O 04/30/17 04/30/17 04/30/17 05/01/17 05/01/17 05/01/17 06:59 14:59 22:59 06:59 14:59 22:59 Intake Total 650 ml 720 ml 970 ml Output Total 150 ml 400 ml 220 ml 150 ml Balance 500 ml 320 ml 750 ml -150 ml Intake Oral 650 ml 720 ml 650 ml IV Total 320 ml Output Urine Total 150 ml 400 ml 220 ml 150 ml # Bowel Movements 1 0 Result Diagram: 04/30/17 0645 04/30/17 0645 A/P Diagnosis: (1) Bilateral tubo-ovarian mass (2) Renal transplant disorder (3) Hemodialysis patient Assessment and Plan Complicated patient of Dr. Espinoza's admitted last week for bilateral TOAs in setting of h/o endometrial ablation for severe menorrhagia, h/o multiple renal transplants, multiple fabiano issues/comorbidities - Follow all recommendations from primary (Hospitalist) team and multiple consultants; pt receiving hemodialysis MWF while inpt - from TECHNICAL RESEARCH SCIENTIST perspective: drains with less output & clinically pt seems to be improving overnight, will plan repeat CT abd/pelvis without contrast tmrw to re-eval b/l tubo-ovarian abscesses - drain sites clean & dry, bandages in place, to remain for now - Dr. Espinoza will be back on tmrw and will see pt for further d/c & outpt planning not meeting d/c criteria Sharifa Candelario MD May 01, 2017 10:13
[2017-05-01] MEDS: FLUCONAZOLE 200 MG PREMIX BAG 100 ML IV SCH (12:54)
[2017-05-01] MEDS: DEXTROSE 10% INJ 1,000 ML IV SCH (12:54)
--- NOTE | 2017-05-01 13:22 | HHI.PR ---
Subjective Remarks sitting up in chair feeling good today may is d/c, voiding had loose stool x 1 today abd. pain stable on current dose of narcotics, working on weaning off appetite is fair ankle swelling increased, IVF adjusted per nephrology mother at [facility] (Jacque Obando) Objective Objective Results - Vital Signs Date Time Temp Pulse Resp B/P Pulse Ox O2 Delivery O2 Flow Rate FiO2 05/01/17 08:45 60 05/01/17 08:00 98.4 66 18 138/82 93 05/01/17 04:00 97.6 61 19 164/85 98 05/01/17 04:00 Room Air 05/01/17 00:00 98.2 66 18 146/96 100 05/01/17 00:00 Room Air 04/30/17 20:47 64 04/30/17 20:00 Room Air 04/30/17 20:00 97.2 59 16 143/56 98 04/30/17 16:00 98.7 68 20 152/96 95 I/O 04/30/17 04/30/17 04/30/17 05/01/17 05/01/17 05/01/17 06:59 14:59 22:59 06:59 14:59 22:59 Intake Total 650 ml 720 ml 970 ml Output Total 150 ml 400 ml 220 ml 150 ml Balance 500 ml 320 ml 750 ml -150 ml Intake Oral 650 ml 720 ml 650 ml IV Total 320 ml Output Urine Total 150 ml 400 ml 220 ml 150 ml # Bowel Movements 1 0 (Jacque Obando) Result Diagram: 04/30/17 0645 04/30/17 0645 Imaging Last Impressions Pelvis CT 04/26/17 0000 Signed Impressions: Service Date/Time: Wednesday, April 26, 2017 16:38 - CONCLUSION: 1. Moderate interval improvement following percutaneous drainage catheter placement in right sided hydro/pyosalpinx although there is residual mild to moderate [place]/hydrosalpinx. 2. Stable left sided pelvic drainage catheter with stable mild prominence of the left fallopian tube. No significant residual drainable fluid collection. 3. Remainder of examination is unchanged. Jefferson Huynh MD Chest X-Ray 04/24/17 0000 Signed Impressions: Service Date/Time: Monday, April 24, 2017 09:11 - CONCLUSION: 1. Increasing consolidation is on the right 2. Persistent mild interstitial edema present. Can Vidal MD FACR Abscess Drainage CT 04/24/17 0000 Signed Impressions: Service Date/Time: Monday, April 24, 2017 14:06 - CONCLUSION: Uncomplicated CT guided drainage of a right anterior pelvic fluid collection. 160 mL of purulent material was obtained. Samples sent for evaluation. Elvis Tom Jr., MD Abdomen/Pelvis CT 04/22/17 0000 Signed Impressions: Service Date/Time: Saturday, April 22, 2017 17:30 - CONCLUSION: The fluid collection adjacent to the left percutaneous drain has not changed since 2 days ago and multiseptated pyosalpinx on the right side has also not significantly changed. The rest of the examination has not changed. Tin Spencer MD Upper Extremity Ultrasound 04/19/17 0000 Signed Impressions: Service Date/Time: Wednesday, April 19, 2017 20:24 - CONCLUSION: No DVT in either upper extremity. Yusuf Jacob MD Pelvis Ultrasound 04/17/17 0000 Signed Impressions: Service Date/Time: Monday, April 17, 2017 11:32 - CONCLUSION: There are complex adnexal masses bilaterally and a normal left ovary is not visualized, however the right ovary is visualized and the above-mentioned adnexal mass appears to be separate from it. Possibility of pyosalpinx should be entertained although the left ovary is not seen and therefore tubo-ovarian abscess in the left ovary is not excluded. Tin Spencer MD Pelvis MRI 04/15/17 0000 Signed Impressions: Service Date/Time: Saturday, April 15, 2017 18:39 - CONCLUSION: 1. The uterus is normal in appearance without obvious endometrial thickening or mass. 2. Normal appearing ovaries are not visualized. In the adnexal region bilaterally dilated tortuous tubular structures are seen with a cystic complex appearance concerning for bilateral hydrosalpinx and tubo-ovarian abscess formation given the extensive inflammatory changes should be considered. 3. Abnormal circumferential bowel wall thickening involving the rectum. 4. Right lower quadrant transplant kidney with hydronephrosis. Moe Aragon MD Other Results Laboratory Tests Test 04/30/17 21:55 Troponin I LESS THAN 0.02 (Jacque Obando) ROS General: Weakness, No: Fatigue HEENT: No: Sore Throat, Dysphagia Cardiac: No: Chest Pain, Edema, Palpitations Pulmonary: No: Cough, SOB, Wheezing GI: Abdominal Pain, Diarrhea, Other (anorexia ), No: BM, N/V /WEAVER HAND: No: Dysuria, Urgency Neuro/MS: No: Lightheaded, Confusion Psych: No: Anxiety, Depression Skin: No: Itching, Rash (Jacque Obando) Physical Exam Physical Exam GENERAL: This is a well-nourished, well-developed patient, in no apparent distress. SKIN: No rashes, ecchymoses or lesions. Cool and dry. HEAD: Atraumatic. Normocephalic. No temporal or scalp tenderness. EYES: Pupils equal round and reactive. Extraocular motions intact. No scleral icterus. No injection or drainage. ENT: Nose without bleeding, purulent drainage or septal hematoma. Throat without erythema, tonsillar hypertrophy or exudate. Uvula midline. Airway patent. NECK: Trachea midline. No JVD or lymphadenopathy. Supple, nontender, no meningeal signs. CARDIOVASCULAR: Regular rate and rhythm without murmurs, gallops, or rubs. RESPIRATORY: Essentially clear, slightly diminished at bases. GASTROINTESTINAL: Abdomen soft, mildly tender, nondistended. No hepato- splenomegaly, or palpable masses. No guarding. Has 2 percutaneous drain with scant serosanguineous drainage. MUSCULOSKELETAL: Left knee erythematous, has incision from recent surgery. No erythema. Bilateral lower extremities with trace pretibial edema, pedal pulses 2+. No calf tenderness. Negative Homans sign bilaterally. Left arm edematous, left AVS noted. NEUROLOGICAL: Awakes to voice, alert oriented 3. No focal deficits. (Jacque Obando) A/P Diagnosis: (1) TOA (tubo-ovarian abscess) (2) Sepsis (3) Hypertension (4) History of CVA (cerebrovascular accident) (5) End stage chronic kidney disease (6) Thrombocytopenia (7) S/P endometrial ablation (8) History of renal transplant (9) Hypothyroidism (10) Anemia (11) Menorrhagia (12) Atrial fibrillation with rapid ventricular response (13) Left arm swelling (14) Pancytopenia Assessment and Plan 27-year-old female with multiple comorbidities, end-stage renal disease and previous renal transplant and failure, menorrhagia. Presented to emergency room with sepsis, found with bilateral TOAs. Underwent CT-guided percutaneous drainage of left and right tubo-ovarian abscesses. Positive for C. difficile colitis -Continue with antibiotics -Continue vancomycin by mouth Infectious disease following -IR managing drains, they are to remain in place. They were flushed 04/28 in IR -CT of abdomen and pelvis to be repeated tomorrow to evaluate abscess Menorrhagia, bilateral TOAs Status post ablation Dr. Espinoza continues to follow patient Status post left knee debridement, has Rosie infection ID following and managing End-stage renal disease Hemodialysis per nephrology Left arm swelling, went to IR 04/28 for venogram shows patent AVF with good flow.Stenosis of brachiocephalic vein which responded well to [employer]LE[employer] CLERK Anemia, likely secondary to sepsis Thrombocytopenia Patient has received multiple blood products Hematology oncology following -HH 6.6/19.2, 2 units PRBC given 8/ -H&H stable -Continue Procrit Hypertension, stable Continue with medications-metoprolol and hydralazine ICU delirium, appears to be resolving Metabolic encephalopathy Continue to monitor neuro status Patient currently on melatonin 5 mg daily at bedtime when necessary -no hallucinations, improving. Sleeping okay -Off Dilaudid now, continue with oxycodone, patient motivated to continue weaning herself off of narcotics. Hypothyroidism Continue with medications Ventricular bigeminy, has resolved Continuous cardiac telemetry -Continue with beta anny -continue multaq A. fib with RVR overnight, has history with prior ablation per Dr. Chowdary -appreciate card input -off cardizem gtt, on PO now Continue with Multaq, beta blockers -Echo EF 60-65%, mod pulm hypertension -Serial cardiac enzymes, negative so far Continue with physical therapy for evaluation Continue with Heparin 5000 units subcutaneous twice a day for DVT prophylaxis Patient is improving slowly, will follow up results of CT of abdomen. IV fluids adjusted per nephrology, noted with increased leg swelling Continue with supportive care D/W RN D/W pt/mother D/W Dr. Maza This patient was seen by myself and Dr. Maza, this note is written on his behalf (Jacque Obando) Assessment and Plan pt seen and examined as above with mother at bedside labs reviwed kathrin consultants help jesse rn jesse prajapati about plan of care (Belia Maza MD) Problem Qualifiers (1) Hypertension: Qualified Code: I10 - Essential hypertension (2) Hypothyroidism: Qualified Code: E03.9 - Hypothyroidism, unspecified type (3) Anemia: Qualified Code: N18.6 - Anemia in chronic kidney disease, on chronic dialysis (4) Menorrhagia: Qualified Code: N92.4 - Excessive bleeding in premenopausal period Jacque Obando May 01, 2017 13:22 Belia Maza MD May 01, 2017 14:46
--- NOTE | 2017-05-01 14:01 | ECHRPT ---
Indication: A Fib/ /flutter CONCLUSIONS Normal left ventricular size. Mild concentric left ventricular hypertrophy. The left ventricular systolic function is normal with an estimated ejection fraction in the range of 60-65%. No regional wall motion abnormalities are present. Mild mitral valve regurgitation. There is mild tricuspid valve regurgitation. The right ventricle is mildly dilated. There is estimated moderate pulmonary hypertension present (range 50-60 mmHg). There is a small pericardial effusion present, no hemodymanic compromise. BP: / HR: Rhythm: MEASUREMENTS (Male / Female) Normal Values Technical Quality:Good 2D ECHO LV Diastolic Diameter PLAX 5.2 cm 4.2 - 5.9 / 3.9 - 5.3 cm LV Systolic Diameter PLAX 3.7 cm IVS Diastolic Thickness 1.6 cm 0.6 - 1.0 / 0.6 - 0.9 cm LVPW Diastolic Thickness 1.2 cm 0.6 - 1.0 / 0.6 - 0.9 cm LV Relative Wall Thickness 0.5 RV Internal Dim ED PLAX 3.0 cm M-MODE Aortic Root Diameter MM 2.9 cm LA Systolic Diameter MM 3.8 cm LA Ao Ratio MM 1.3 AV Cusp Separation MM 2.4 cm DOPPLER Mitral E Point Velocity 102.0 cm/s Mitral A Point Velocity 66.1 cm/s Mitral E to A Ratio 1.5 LV E' Lateral Velocity 5.4 cm/s Mitral E to LV E' Lateral Ratio 19.0 LV E' Septal Velocity 6.8 cm/s Mitral E to LV E' Septal Ratio 15.0 TR Peak Velocity 342.0 cm/s TR Peak Gradient 46.8 mmHg FINDINGS LEFT VENTRICLE Normal left ventricular size. Mild concentric left ventricular hypertrophy. The left ventricular systolic function is normal with an estimated ejection fraction in the range of 60-65%. No regional wall motion abnormalities are present. RIGHT VENTRICLE The right ventricle is mildly dilated. LEFT ATRIUM The left atrial size is normal. RIGHT ATRIUM The right atrial size is normal. ATRIAL SEPTUM Normal atrial septal thickness without atrial level shunting by limited color doppler interrogation. AORTA The aortic root and proximal ascending aorta are normal in size on limited imaging. MITRAL VALVE Structurally normal mitral valve. Mild mitral valve regurgitation. AORTIC VALVE Trileaflet aortic valve. No aortic valve stenosis or regurgitation. TRICUSPID VALVE Structurally normal tricuspid valve. There is mild tricuspid valve regurgitation. There is estimated moderate pulmonary hypertension present (range 50-60 mmHg). PULMONARY VALVE The pulmonary valve is not well visualized. VESSELS The inferior vena cava is normal in size. PERICARDIUM There is a small pericardial effusion present. Omi Mosqueda MD (Electronically Signed) Final Date:01 May 2017 14:01
--- NOTE | 2017-05-01 14:50 | PD.CARD.PN ---
Subjective Subjective Remarks The patient's primary complaint is increased BLE edema. She denies CP or SOB today. She breakthrough afib RVR last night. NSR today. The patient has recurrent hypoglycemia. (Aimee Enriquez) Objective Medications Current Medications Medications (Trade) Dose Ordered Sig/Mega Route Start Time Stop Time Status Last Admin (Ecotrin Ec) 81 mg DAILY PO 04/16/17 09:00 04/30/17 10:05 (Catapres) 0.1 mg BID PRN PO 04/15/17 18:45 (Multaq) 400 mg BID PO 04/15/17 21:00 05/01/17 09:10 (Vitamin D3) 2,000 units DAILY PO 04/16/17 09:00 04/30/17 10:04 (NS Flush) 2 ml UNSCH PRN .XX 04/15/17 19:00 04/29/17 22:44 (NS Flush) 2 ml BID .XX 04/15/17 21:00 05/01/17 09:10 (Tylenol) 650 mg Q6H PRN PO 04/15/17 19:00 04/17/17 23:57 (Zofran Inj) 4 mg Q6H PRN IV 04/15/17 19:00 Hold 04/21/17 05:27 (Heparin Inj) 5,000 units Q12H SQ 04/15/17 21:00 05/01/17 09:09 Miscellaneous Information 1 Q361D XX 04/15/17 19:00 (Chlorhexidine 2% Cloth) Taper DAILY@04 TOP 04/16/17 04:00 04/12/18 03:59 04/24/17 04:00 (Chlorhexidine 2% Cloth) 3 pack UNSCH PRN TOP 04/15/17 19:00 (Carlee-Colace) 1 tab BID PO 04/15/17 21:00 05/01/17 09:11 (Milk Of Magnesia Liq) 30 ml Q12H PRN PO 04/15/17 19:00 (Senokot) 17.2 mg Q12H PRN PO 04/15/17 19:00 (Dulcolax Supp) 10 mg DAILY PRN RECTAL 04/15/17 19:00 (Lactulose Liq) 30 ml DAILY PRN PO 04/15/17 19:00 (D50w (Vial) Inj) 25 ml UNSCH PRN IV PUSH 04/16/17 07:45 04/27/17 12:29 (NovoLIN R SUPPLEMENTAL SCALE) 1 Q4HR SQ 04/16/17 08:00 Famotidine 10 mg 10 mg Q12HR IV PUSH 04/16/17 21:00 05/01/17 09:10 (NS 1000 ml Inj) 1,000 ml @ 0 mls/hr Q0M PRN IV 04/17/17 11:10 04/25/17 11:14 Heparin Sodium (Porcine) 8000 units 8,000 units UNSCH PRN IVF 04/17/17 11:15 (NS 1000 ml Inj) 1,000 ml @ 0 mls/hr Q0M PRN IV 04/17/17 11:10 (Mannitol Inj) 12.5 gm UNSCH PRN IV 04/17/17 11:15 (Albumin 25% Inj) 25 gm UNSCH PRN IV 04/17/17 11:15 (NS Flush) 5 ml UNSCH PRN IV FLUSH 04/17/17 11:15 04/24/17 11:46 (Heparin Inj) UNSCH PRN .XX 04/17/17 11:15 (Gentamicin (Dialysis) Inj) 20 mg UNSCH PRN IV 04/17/17 11:15 (Zofran Inj) 4 mg UNSCH PRN IV 04/17/17 11:15 04/24/17 20:56 (Tylenol) 650 mg UNSCH PRN PO 04/17/17 11:15 (Benadryl) 25 mg UNSCH PRN PO 04/17/17 11:15 (Nitrostat Sl) 0.4 mg UNSCH PRN SL 04/17/17 11:15 (Catapres) 0.1 mg UNSCH PRN PO 04/17/17 11:15 (Gelfoam 12 Mm/7 Mm Top) 1 foam UNSCH PRN TOP 04/17/17 11:15 04/25/17 11:14 (Compazine Inj) 5 mg Q6H PRN IV PUSH 04/17/17 20:15 04/26/17 00:36 (VANCOMYCIN for oral use only) 500 mg QID PO 04/20/17 13:00 05/01/17 09:09 (Ativan Inj) 0.5 mg Q6H PRN IV PUSH 04/21/17 01:00 04/26/17 17:44 (Deltasone) 7.5 mg DAILY PO 04/20/17 19:30 05/01/17 09:11 (Pill Splitter) 1 ea UNSCH PRN OTHER 04/20/17 20:00 (Melatonin) 5 mg HS PRN PO 04/21/17 14:30 04/23/17 20:30 (Neosporin Oint) 1 applic Q12HR TOPICAL 04/21/17 21:00 05/01/17 09:12 (Ativan Inj) 0.5 mg HS PRN IV PUSH 04/21/17 20:15 04/26/17 21:29 (Synthroid) 25 mcg DAILY@0600 PO 04/23/17 06:00 05/01/17 05:42 (Zofran Inj) 4 mg Q6HR PRN IV PUSH 04/22/17 10:30 04/30/17 13:01 (Lopressor) 50 mg HS PO 04/23/17 21:00 04/30/17 20:40 Metoprolol Tartrate 100 mg 100 mg DAILY PO 04/24/17 09:00 05/01/17 09:11 (Merrem Inj/NS Inj) 100 ml @ 200 mls/hr Q12H IV 04/25/17 13:00 05/01/17 14:42 Duloxetine HCl 30 mg 30 mg DAILY PO 04/26/17 09:00 05/01/17 09:11 (Diflucan 200 Mg Premix Bag) 100 ml @ 100 mls/hr DAILY@13 IV 04/29/17 13:00 05/01/17 12:54 (Roxicodone) 5 mg Q4H PRN PO 04/29/17 17:30 05/01/17 03:54 (Roxicodone) 10 mg Q4H PRN PO 04/29/17 17:30 05/01/17 10:07 (Epogen Inj) 20,000 units MoWeFr SQ 04/29/17 18:00 04/29/17 18:28 Diltiazem HCl 180 mg 180 mg DAILY PO 04/30/17 14:30 05/01/17 09:11 (D10w Inj) 1,000 ml @ 10 mls/hr Q24H IV 05/01/17 11:15 05/01/17 12:54 Vital Signs / I&O Vital Signs Date Time Temp Pulse Resp B/P Pulse Ox O2 Delivery O2 Flow Rate FiO2 05/01/17 12:00 97.9 69 18 143/85 97 05/01/17 08:45 60 05/01/17 08:00 98.4 66 18 138/82 93 05/01/17 04:00 97.6 61 19 164/85 98 05/01/17 04:00 Room Air 05/01/17 00:00 98.2 66 18 146/96 100 05/01/17 00:00 Room Air 04/30/17 20:47 64 04/30/17 20:00 Room Air 04/30/17 20:00 97.2 59 16 143/56 98 04/30/17 16:00 98.7 68 20 152/96 95 I/O 04/30/17 04/30/17 04/30/17 05/01/17 05/01/17 05/01/17 07:00 15:00 23:00 07:00 15:00 23:00 Intake Total 650 ml 720 ml 970 ml Output Total 150 ml 400 ml 220 ml 150 ml Balance 500 ml 320 ml 750 ml -150 ml Intake Oral 650 ml 720 ml 650 ml IV Total 320 ml Output Urine Total 150 ml 400 ml 220 ml 150 ml # Bowel Movements 1 0 Physical Exam GENERAL: Appears older than states age SKIN: Warm and dry. HEAD: Normocephalic. ovalles facies EYES: No scleral icterus. No injection or drainage. NECK: Supple, trachea midline. CARDIOVASCULAR: Regular rate and rhythm. Systolic murmur RESPIRATORY: Breath sounds equal bilaterally. No accessory muscle use. Diminished right base GASTROINTESTINAL: Abdomen soft, non-tender, nondistended. MUSCULOSKELETAL: No cyanosis. BLE edema. Left knee incision healing BACK: Nontender without obvious deformity. Laboratory Laboratory Tests Test 04/30/17 21:55 Troponin I LESS THAN 0.02 NG/ML (Aimee Enriquez) Assessment and Plan Assessment and Plan Recurrent atrial fibrillation, on Multaq. Converted to NSR with cardizem gtt. Has a history of cardioversion with Dr. Chowdary HTN Immunosuppressed Renal failure on dialysis Recurrent hypoglycemic episodes Chronic pain Prolonged hospitalization PLAN: Continue Multaq, metoprolol and cardizem. Continue ASA Dr. Chowdary will follow up on tomorrow Patient seen and evaluated by Dr Hong (Aimee Enriquez) Assessment and Plan The exam, history, and the medical decision-making described in the above note were completed with the assistance of the mid-level provider. I reviewed and agree with the findings presented. I attest that I had a [id number] encounter with the patient on the same day, and personally performed and documented my assessment and findings in the medical record. Sleepy today but back in SR, as per Dr Chowdary who will see her tomorrow. (Beronica Hong MD) Aimee Enriquez May 01, 2017 14:50 Beronica Hong MD May 01, 2017 17:13
[2017-05-01] MEDS: METOPROLOL TARTRATE 50 MG TAB PO SCH (20:55)
[2017-05-02] VITALS (7 sets, daily range): BP systolic 135–159; BP diastolic 70–95; PULSE 62–72; RESP 17–20; TEMP 97.3–98.5; O2SAT 94–99
[2017-05-02] MEDS: MEROPENEM INJ 500 MG in SODIUM CHLORIDE 0.9% INJ 100 ML IV SCH ×2 (00:11→13:00)
[2017-05-02] MEDS: INSULIN NovoLIN REGULAR SUPPLEMENTAL SCALE SQ SCH ×5 (03:29→20:00)
[2017-05-02] MEDS: CHLORHEXIDINE GLUCONATE 2 % 1 PACK (2 CLOTHS) TOP SCH (03:29)
[2017-05-02] MEDS: LEVOTHYROXINE SODIUM 25 MCG TAB PO SCH (05:40)
[2017-05-02] MEDS: DOCUSATE SODIUM 50 MG/SENNA 8.6 MG TAB PO SCH ×2 (09:00→21:00)
[2017-05-02] MEDS: METOPROLOL TARTRATE 100 MG TAB PO SCH (09:00)
[2017-05-02] MEDS: DRONEDARONE 400 MG TAB PO SCH ×2 (09:00→21:28)
[2017-05-02] MEDS: predniSONE 5 MG TAB PO SCH (09:00)
[2017-05-02] MEDS: FAMOTIDINE 20 MG/2 ML VIAL IV PUSH SCH ×2 (09:00→21:28)
[2017-05-02] MEDS: CHOLECALCIFEROL (VIT D3) 1000 UNIT TAB PO SCH (09:00)
[2017-05-02] MEDS: ASPIRIN EC 81 MG TABEC PO SCH (09:00)
[2017-05-02] MEDS: NEOMYCIN/POLYMYXIN/BACITRACIN OINT 15 GM TUBE TOPICAL SCH ×2 (09:00→21:27)
[2017-05-02] MEDS: HEPARIN SODIUM - SQ 10,000 UNITS/ML VIAL SQ SCH (09:00)
[2017-05-02] MEDS: SODIUM CHLORIDE 0.9% FLUSH 10 ML FLUSH SCH ×2 (09:00→21:29)
[2017-05-02] MEDS: VANCOMYCIN 500 MG VIAL (FOR ORAL USE ONLY) PO SCH ×4 (09:00→21:27)
[2017-05-02] MEDS: DULoxetine HCl DR 30 MG CAP PO SCH (09:00)
[2017-05-02] MEDS: DILTIAZEM-CD 180 MG CAP ER PO SCH (09:00)
[2017-05-02] MEDS: EPOETIN ALFA 20,000 UNITS/ML VIAL SQ SCH (09:39)
[2017-05-02] MEDS: SODIUM CHLOR 0.9% 1000 ML INJ 1,000 ML IV PRN (09:40)
[2017-05-02] MEDS: GELATIN 12 MM/7 MM FOAM TOP PRN (09:40)
--- NOTE | 2017-05-02 10:50 | HHI.PR ---
Subjective Remarks gone for HD this am hgb now 9.1 tele shows SR BP 137/90 resting in bed post HD without c/p (Barbie Jiménez) Objective Objective Results - Vital Signs Date Time Temp Pulse Resp B/P Pulse Ox O2 Delivery O2 Flow Rate FiO2 05/02/17 04:00 98.5 64 17 137/90 96 05/02/17 00:00 Room Air 05/02/17 00:00 98.5 65 19 135/70 94 05/01/17 20:00 Room Air 05/01/17 20:00 97.9 64 18 143/84 96 05/01/17 17:48 100 21 05/01/17 16:00 98.2 65 18 138/86 100 05/01/17 12:00 97.9 69 18 143/85 97 I/O 05/01/17 05/01/17 05/01/17 05/02/17 05/02/17 05/02/17 06:59 14:59 22:59 06:59 14:59 22:59 Intake Total 660 ml 460 ml Output Total 150 ml 100 ml 250 ml Balance -150 ml 560 ml 210 ml Intake Oral 480 ml 280 ml IV Total 180 ml 180 ml Output Urine Total 150 ml 100 ml 250 ml # Bowel Movements 0 0 (Barbie Jiménez) Result Diagram: 04/30/17 0645 04/30/17 0645 ROS General: Fatigue, Weakness, Other (10 point ROS done, ) GI: Other (bilateral drains , ovarian abcesses.) /CORPORATE LEGAL SECRETARY: Other (HD) (Barbie Jiménez) Physical Exam Physical Exam PHYSICAL EXAMINATION GENERAL: This is a female who appears to be in no acute distress. She is alert and awake HEAD: Normocephalic without any lesion or mass noted. Facial features appear symmetric. OROPHARYNGEAL: Oropharynx clear NECK: Supple. No nuchal rigidity or lymphadenopathy. Trachea midline without deviation. CARDIAC: Regular rhythm, regular rate, S1 and S2 are heard. Murmur soft LUNGS: Clear to auscultation bilaterally. ABDOMEN: Soft, non distended, bilateral ovarian drains Bowel sounds are heard. EXTREMITIES: no edema. extremities warm NEUROLOGICAL: Patient mood and affect appropriate. No focal deficit SKIN:Warm and moist (Barbie Jiménez) A/P Assessment and Plan (1) TOA (tubo-ovarian abscess) (2) Sepsis (3) Hypertension (4) History of CVA (cerebrovascular accident) (5) End stage chronic kidney disease (6) Thrombocytopenia (7) S/P endometrial ablation (8) History of renal transplant (9) Hypothyroidism (10) Anemia (11) Menorrhagia (12) Atrial fibrillation with rapid ventricular response (13) Left arm swelling (14) Pancytopenia Assessment and Plan vitals reviewed, BP 137/90, monitor diastolic, afebrile , SR now labs reviewed, recheck in am, K+, anemia, renals C. difficile colitis, symtoms improving, -Continue vancomycin by mouth Infectious disease following -IR managing drains, they are to remain in place. They were flushed 04/28 in IR Menorrhagia, bilateral TOAs Status post ablation, medical management Dr. Espinoza continues to follow patient Status post left knee debridement, has Rosie infection ID following and managing End-stage renal disease Hemodialysis per nephrology, HD today Anemia, likely secondary to sepsis and chronic disease Thrombocytopenia Patient has received multiple blood products Hematology oncology following - 6.6/19.1 now , 2 units PRBC given 04/29 Hypertension, stable Continue with medications-metoprolol and hydralazine ICU delirium, resolved, patient able to answer questions appropriately Metabolic encephalopathy, resolving Hypothyroidism Continue with medications telemetry, rate regular, recent atrial fib, continue to monitor appreciate cardiac consult and input, medical management Continue with physical therapy for evaluation Continue with Heparin 5000 units subcutaneous twice a day for DVT prophylaxis Continue with supportive care DC planning when stable from consulting standpoint and medical management that can be managed at home. D/W RN D/W pt D/W Dr. Rodríguez, seen on his behalf (Barbie Jiménez) Assessment and Plan seen, examined by myself, Dr Rodríguez, today Discussed with patient She requested that the heparin 5000 unit subcutaneous twice a day be discontinued Instead SCDs ordered Discussed with mid level provider The exam, history, and the medical decision-making described in the above note were completed with the assistance of the mid-level provider. I reviewed the findings presented. I attest that I had a [id number] encounter with the patient on the same day, and personally performed and documented my assessment and findings in the medical record. (Sandy Rodríguez MD) Barbie Jiménez May 02, 2017 10:50 Sandy Rodríguez MD May 02, 2017 20:26 D/W RN D/W pt/mother D/W Dr. Rodríguez, seen on his behalf Barbie Jiménez May 02, 2017 10:50
[2017-05-02] MEDS: DEXTROSE 10% INJ 1,000 ML IV SCH (11:15)
--- NOTE | 2017-05-02 13:04 | RADRPT ---
EXAM DATE/TIME: 05/02/2017 12:17 [facility] COMPARISON: CT PELVIS W/O CONTRAST, April 26, 2017, 16:38. INDICATIONS : Follow up abscess ORAL CONTRAST: No oral contrast ingested. RADIATION DOSE: 9.96 CTDIvol (mGy) MEDICAL HISTORY : Hypertension. Deep venous thrombosis. Renal failure, chronic. SURGICAL HISTORY : Renal transplant ENCOUNTER: Initial ACUITY: 1 day PAIN SCALE: 5/10 LOCATION: Abdomen TECHNIQUE: Volumetric scanning of the abdomen and pelvis was performed. Using automated exposure control and ad justment of the mA and/or kV according to patient size, radiation dose was kept as low as reasonably achievable to obtain optimal diagnostic quality images. DICOM format image data is available electro nically for review and comparison. FINDINGS: There are bilateral pleural effusions present, larger on the right than the left. Compressive atelect asis present in both lung bases. Small pericardial effusion is present. Heart is enlarged. Within the abdomen, there is mild nonspecific fluid adjacent to the spleen and liver edge. The [facility] kidneys are atrophic. Right pelvic transplant kidney is grossly stable. Pigtail drainage catheters remain in place in the pelvis on both sides with no significant change in loculations medial and posterior to the drain on the right.. The appearance on the left is also stabl e without significant residual fluid density present on this side. No significant free pelvic fluid. CONCLUSION: Persistent grossly stable loculations adjacent to pigtail drainage catheter in the deep right pelvis. Stable grossly satisfactory appearance on the left with left-sided drainage catheter in stable posit ion. Chris Myrick MD on May 02, 2017 at 12:52 Board Certified Radiologist. This report was verified electronically.
--- NOTE | 2017-05-02 14:35 | PD.ONC.PN ---
Subjective Subjective Remarks Afebrile overnight. patient resting in bed in nad. still has some pain in abdomen, but it is improving. Objective Data Date Time Temp Pulse Resp B/P Pulse Ox O2 Delivery O2 Flow Rate FiO2 05/02/17 08:00 62 05/02/17 07:15 Room Air 05/02/17 04:00 98.5 64 17 137/90 96 05/02/17 00:00 Room Air 05/02/17 00:00 98.5 65 19 135/70 94 05/01/17 20:00 Room Air 05/01/17 20:00 97.9 64 18 143/84 96 05/01/17 17:48 100 21 05/01/17 16:00 98.2 65 18 138/86 100 05/02/17 05/02/17 05/02/17 07:00 15:00 23:00 Intake Total 460 ml Output Total 250 ml Balance 210 ml Result Diagram: 04/30/17 0645 04/30/17 0645 Imaging Studies Last 24 hours Impressions Abdomen/Pelvis CT 05/02/17 0600 Signed Impressions: Service Date/Time: Tuesday, May 02, 2017 12:17 - CONCLUSION: Persistent grossly stable loculations adjacent to pigtail drainage catheter in the deep right pelvis. Stable grossly satisfactory appearance on the left with left- sided drainage catheter in stable position. Chris Myrick MD Administered Medications Medications (Trade) Dose Ordered Sig/Mega Route PRN Reason Start Time Stop Time Status Last Admin Dose Admin Aspirin (Ecotrin Ec) 81 mg DAILY PO 04/16/17 09:00 04/30/17 10:05 Dronedarone (Multaq) 400 mg BID PO 04/15/17 21:00 05/01/17 20:55 Cholecalciferol (Vitamin D3) 2,000 units DAILY PO 04/16/17 09:00 04/30/17 10:04 Sodium Chloride (NS Flush) 2 ml UNSCH PRN .XX FLUSH AFTER USING IV ACCESS 04/15/17 19:00 04/29/17 22:44 Sodium Chloride (NS Flush) 2 ml BID .XX 04/15/17 21:00 05/01/17 20:56 Acetaminophen (Tylenol) 650 mg Q6H PRN PO FEVER >101F 04/15/17 19:00 04/17/17 23:57 Ondansetron HCl (Zofran Inj) 4 mg Q6H PRN IV NAUSEA OR VOMITING 04/15/17 19:00 Hold 04/21/17 05:27 Heparin Sodium (Porcine) (Heparin Inj) 5,000 units Q12H SQ 04/15/17 21:00 05/01/17 20:56 Chlorhexidine Gluconate (Chlorhexidine 2% Cloth) Taper DAILY@04 TOP 04/16/17 04:00 04/12/18 03:59 04/24/17 04:00 Senna/Docusate Sodium (Carlee-Colace) 1 tab BID PO 04/15/17 21:00 05/01/17 09:11 Dextrose (D50w (Vial) Inj) 25 ml UNSCH PRN IV PUSH HYPOGLYCEMIA-SEE COMMENTS 04/16/17 07:45 04/27/17 12:29 Famotidine 10 mg 10 mg Q12HR IV PUSH 04/16/17 21:00 05/01/17 20:55 Sodium Chloride (NS 1000 ml Inj) 1,000 ml @ 0 mls/hr Q0M PRN IV For Prime & Rinse Back 04/17/17 11:10 05/02/17 09:40 Sodium Chloride (NS Flush) 5 ml UNSCH PRN IV FLUSH WITH DIALYSIS 04/17/17 11:15 04/24/17 11:46 Ondansetron HCl (Zofran Inj) 4 mg UNSCH PRN IV WITH DIALYSIS 04/17/17 11:15 04/24/17 20:56 Gelatin (Gelfoam 12 Mm/7 Mm Top) 1 foam UNSCH PRN TOP SEE LABEL COMMENTS 04/17/17 11:15 05/02/17 09:40 Prochlorperazine Edisylate (Compazine Inj) 5 mg Q6H PRN IV PUSH nausea 04/17/17 20:15 04/26/17 00:36 Vancomycin HCl (VANCOMYCIN for oral use only) 500 mg QID PO 04/20/17 13:00 05/01/17 20:56 Lorazepam (Ativan Inj) 0.5 mg Q6H PRN IV PUSH NAUSEA OR VOMITING 04/21/17 01:00 04/26/17 17:44 Prednisone (Deltasone) 7.5 mg DAILY PO 04/20/17 19:30 05/01/17 09:11 Melatonin (Melatonin) 5 mg HS PRN PO INSOMNIA 04/21/17 14:30 04/23/17 20:30 Neomycin/ Polymyxin/ Bacitracin (Neosporin Oint) 1 applic Q12HR TOPICAL 04/21/17 21:00 05/01/17 20:57 Lorazepam (Ativan Inj) 0.5 mg HS PRN IV PUSH ANXIETY 04/21/17 20:15 04/26/17 21:29 Levothyroxine Sodium (Synthroid) 25 mcg DAILY@0600 PO 04/23/17 06:00 05/02/17 05:40 Ondansetron HCl (Zofran Inj) 4 mg Q6HR PRN IV PUSH NAUSEA OR VOMITING 04/22/17 10:30 04/30/17 13:01 Metoprolol Tartrate (Lopressor) 50 mg HS PO 04/23/17 21:00 05/01/17 20:55 Metoprolol Tartrate 100 mg 100 mg DAILY PO 04/24/17 09:00 05/01/17 09:11 Meropenem/Sodium Chloride (Merrem Inj/NS Inj) 100 ml @ 200 mls/hr Q12H IV 04/25/17 13:00 05/02/17 00:11 Duloxetine HCl 30 mg 30 mg DAILY PO 04/26/17 09:00 05/01/17 09:11 Fluconazole/ Sodium Chloride (Diflucan 200 Mg Premix Bag) 100 ml @ 100 mls/hr DAILY@13 IV 04/29/17 13:00 05/01/17 12:54 Oxycodone HCl (Roxicodone) 5 mg Q4H PRN PO PAIN 1-5 04/29/17 17:30 05/01/17 03:54 Oxycodone HCl (Roxicodone) 10 mg Q4H PRN PO pain 6-10 04/29/17 17:30 05/02/17 13:04 Epoetin Torsten (Epogen Inj) 20,000 units MoWeFr SQ 04/29/17 18:00 05/02/17 09:39 Diltiazem HCl 180 mg 180 mg DAILY PO 04/30/17 14:30 05/01/17 09:11 Dextrose (D10w Inj) 1,000 ml @ 10 mls/hr Q24H IV 05/01/17 11:15 05/01/17 12:54 Objective Remarks GENERAL: chronically ill young female sitting up in bed, appears well and in nad. SKIN: Warm and dry. HEAD: Normocephalic. EYES: No injection or drainage. NECK: Supple, trachea midline. CARDIOVASCULAR: + S1/S2. RESPIRATORY: anterior miller clear. GASTROINTESTINAL: Abdomen mildly distended, drains in place. EXTREMITIES: no cyanosis NEURO: awake and alert, normal speech. able to move extremities. Assessment/Plan Problem List: (1) Pancytopenia Status: Acute Plan: 05/02: awaiting CBC today. counts have been trending upward as infection resolves. --due to peripheral destruction from DIC, sepsis, hepatosplenomegaly (causing sequestration, destruction), multiple antibiotics. Assessment 27-year-old female admitted on 04/15/2017 with fever, malaise, bloody discharge , diarrhea, pelvic cramping. Hematology consulted for pancytopenia. 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 Plan 1. continue heparin prophylaxis 2. monitor CBC Attending Statement Agree w/ above. As discussed. Marita Duran May 02, 2017 14:35 Dede Peralta MD May 02, 2017 22:40
--- NOTE | 2017-05-02 15:30 | HHI.NPPN ---
Subjective General Problems: Anemia, Hypertension Renal Failure: End Stage Renal Disease History of Present Illness 27-year-old female with past medical history of hypertension, hypothyroidism, gastroesophageal reflux disease, history of chronic anemia, end-stage renal disease on hemodialysis two times per week, history of multiple renal transplants in the past who was admitted because of heavy vaginal bleeding after she had an IUD placed. I was called to see the patient for the management of dialysis. Additional Remarks Patient was seen in AM during HD, no SOB, abd. pain is better. Review of Systems General Constitutional: Fatigue Cardiovascular Cardiac: MUIR Gastrointestinal Gastrointestinal: Abdominal Pain, Nausea & Vomiting, Diarrhea Objective Data Data 05/01/17 05/02/17 19:00 07:00 Intake Total 1120 ml Output Total 350 ml Balance 770 ml Intake Oral 760 ml IV Total 360 ml Output Urine Total 350 ml # Bowel Movements 0 Vital Signs Date Time Temp Pulse Resp B/P Pulse Ox O2 Delivery O2 Flow Rate FiO2 05/02/17 08:00 62 05/02/17 07:15 Room Air 05/02/17 04:00 98.5 64 17 137/90 96 05/02/17 00:00 Room Air 05/02/17 00:00 98.5 65 19 135/70 94 05/01/17 20:00 Room Air 05/01/17 20:00 97.9 64 18 143/84 96 05/01/17 17:48 100 21 05/01/17 16:00 98.2 65 18 138/86 100 -: 04/30/17 0645 04/30/17 0645 Physical Exam General Appearance: No Acute Distress, Comfortable Pulmonary Resp Exam: Breath Sounds Equal, Decreased Bases, Diminished Breath Sounds Cardiology CV Exam: Arrhythmia Gastrointestinal/Abdomen GI Exam: Soft, Positive Bowel Movement, Non-Distended Extremeties Extremities Exam: Trace Edema Neurologic Neuro Exam: Alert, Awake, Oriented, Obtunded Psychiatric Psych Exam: Appropriate Responses Assessment/Plan Assessment Summary: Anemia of CKD, Hypertension, End Stage Renal Disease, Transplant Kidney Status Problem List: (1) Hypertension (2) Hypothyroidism (3) History of CVA (cerebrovascular accident) (4) Renal transplant failure and rejection (5) End stage chronic kidney disease (6) Anemia (7) Sepsis Plan History of kidney transplant since age 4 first from the father subsequently mother these lasted for about 15 years and afterwards she received a cadaveric kidney transplant and she received 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 Enterobacter sepsis. Also on Diflucan. On oral Vancomycin for C.diff colitis. Epogen for anemia. HD today, remove fluid as tolerated. Hgb. is better post transfusion. Problem Qualifiers (1) Hypertension: Qualified Code: I10 - Essential hypertension (2) Hypothyroidism: Qualified Code: E03.9 - Hypothyroidism, unspecified type (3) Anemia: Qualified Code: N18.6 - Anemia in chronic kidney disease, on chronic dialysis Veronica Pichardo MD May 02, 2017 15:30
[2017-05-02] MEDS: FLUCONAZOLE 200 MG PREMIX BAG 100 ML IV SCH (16:18)
--- NOTE | 2017-05-02 18:09 | HHI.PR ---
Subjective Remarks up in chair eating rosalind Watson animated and lucid reviewed CT and issues of persistent small abcess collections -- hoping for them to become sterile abcesses and need no action reviewed need to follow up with Dr. Harris on discharge. reviewed need to have sono in my office in one week any signs of infection call me on my cell From my point of view she is ready for discharge. Awaiting other consultants to complete their specific goals. Objective - Vital Signs Date Time Temp Pulse Resp B/P Pulse Ox O2 Delivery O2 Flow Rate FiO2 05/02/17 16:56 99 21 05/02/17 12:00 97.6 72 20 159/95 96 05/02/17 08:00 62 05/02/17 07:15 Room Air 05/02/17 04:00 98.5 64 17 137/90 96 05/02/17 00:00 Room Air 05/02/17 00:00 98.5 65 19 135/70 94 05/01/17 20:00 Room Air 05/01/17 20:00 97.9 64 18 143/84 96 I/O 05/01/17 05/01/17 05/01/17 05/02/17 05/02/17 05/02/17 07:00 15:00 23:00 07:00 15:00 23:00 Intake Total 660 ml 460 ml 198 ml Output Total 150 ml 100 ml 250 ml Balance -150 ml 560 ml 210 ml 198 ml Intake Oral 480 ml 280 ml IV Total 180 ml 180 ml 198 ml Output Urine Total 150 ml 100 ml 250 ml # Bowel Movements 0 0 Result Diagram: 04/30/17 0645 04/30/17 0645 Ayala Espinoza MD May 02, 2017 18:09
[2017-05-02] MEDS: METOPROLOL TARTRATE 50 MG TAB PO SCH (21:28)
[2017-05-03] VITALS (9 sets, daily range): BP systolic 120–151; BP diastolic 72–93; PULSE 60–73; RESP 16–18; TEMP 98–98.6; O2SAT 92–98
[2017-05-03] MEDS: MEROPENEM INJ 500 MG in SODIUM CHLORIDE 0.9% INJ 100 ML IV SCH ×2 (00:03→13:57)
[2017-05-03] MEDS: CHLORHEXIDINE GLUCONATE 2 % 1 PACK (2 CLOTHS) TOP SCH (04:00)
[2017-05-03] MEDS: INSULIN NovoLIN REGULAR SUPPLEMENTAL SCALE SQ SCH ×6 (04:00→20:00)
[2017-05-03] MEDS: LEVOTHYROXINE SODIUM 25 MCG TAB PO SCH (05:03)
[2017-05-03 05:25] LABS: HEMATOCRIT 25.7 % (35.0-46.0); MEAN CELL VOLUME 88.6 FL (80.0-100.0); MEAN CORPUSCULAR HEMOGLOBIN 30.1 PG (27.0-34.0); MEAN CORPUSCULAR HGB CONC 33.9 % (32.0-36.0); PLATELET COUNT 201 TH/MM3 (150-450); RED CELL DISTRIBUTION WIDTH 20.6 % (11.6-17.2); WHITE BLOOD COUNT 2.8 TH/MM3 (4.0-11.0)
[2017-05-03 05:28] LABS: HEMO FLAGS AUTO DIFF
[2017-05-03 05:55] LABS: BICARBONATE 32.4 MEQ/L (21.0-32.0); POTASSIUM 3.8 MEQ/L (3.5-5.1)
[2017-05-03 06:00] LABS: APTT (PATIENT) 36.9 SEC (24.3-30.1); INTERNATIONAL NORMALIZED RATIO 1.1 RATIO; PROTHROMBIN TIME - PATIENT 12.4 SEC (9.8-11.6)
[2017-05-03 07:12] LABS: BANDS 8 % (0-6); NEUTROPHIL # MANUAL DIFF 1.9 TH/MM3 (1.8-7.7); POLYS (SEG NEUTROPHILS) 61 % (16-70); WBC DIFF SAMPLE 100
[2017-05-03 07:13] LABS: OVALOCYTES 1+ (NORMAL); PLATELET ESTIMATE SMEAR NORMAL (NORMAL); PLATELET MORPHOLOGY NORMAL (NORMAL); SCAN/DIFF FINAL DIFF MANUAL
[2017-05-03] MEDS: DILTIAZEM-CD 180 MG CAP ER PO SCH (08:51)
[2017-05-03] MEDS: DOCUSATE SODIUM 50 MG/SENNA 8.6 MG TAB PO SCH ×2 (08:51→21:00)
[2017-05-03] MEDS: DULoxetine HCl DR 30 MG CAP PO SCH (08:51)
[2017-05-03] MEDS: DRONEDARONE 400 MG TAB PO SCH ×2 (08:51→21:45)
[2017-05-03] MEDS: predniSONE 5 MG TAB PO SCH (08:51)
[2017-05-03] MEDS: METOPROLOL TARTRATE 100 MG TAB PO SCH (08:51)
[2017-05-03] MEDS: CHOLECALCIFEROL (VIT D3) 1000 UNIT TAB PO SCH (08:52)
[2017-05-03] MEDS: FAMOTIDINE 20 MG/2 ML VIAL IV PUSH SCH ×2 (08:54→21:45)
[2017-05-03] MEDS: ASPIRIN EC 81 MG TABEC PO SCH (08:55)
[2017-05-03] MEDS: VANCOMYCIN 500 MG VIAL (FOR ORAL USE ONLY) PO SCH ×4 (08:55→21:44)
[2017-05-03] MEDS: SODIUM CHLORIDE 0.9% FLUSH 10 ML FLUSH SCH ×2 (08:55→21:00)
[2017-05-03] MEDS: DEXTROSE 10% INJ 1,000 ML IV SCH (11:15)
--- NOTE | 2017-05-03 11:44 | HHI.PR ---
Subjective Remarks Sitting up in chair Alert oriented no pain no shortness of breath noted Hoping to go home soon Objective Objective Results - Vital Signs Date Time Temp Pulse Resp B/P Pulse Ox O2 Delivery O2 Flow Rate FiO2 05/03/17 11:07 98 21 05/03/17 08:04 98.6 68 16 151/93 98 05/03/17 07:15 Room Air 05/03/17 04:00 Room Air 05/03/17 04:00 98.3 73 18 138/82 97 05/03/17 00:00 98.0 71 18 138/81 96 05/03/17 00:00 Room Air 05/02/17 20:00 Room Air 05/02/17 20:00 97.3 63 18 141/89 94 05/02/17 19:59 66 05/02/17 16:56 99 21 05/02/17 12:00 97.6 72 20 159/95 96 I/O 05/02/17 05/02/17 05/02/17 05/03/17 05/03/17 05/03/17 06:59 14:59 22:59 06:59 14:59 22:59 Intake Total 460 ml 198 ml 178 ml 176 ml Output Total 250 ml Balance 210 ml 198 ml 178 ml 176 ml Intake Oral 280 ml IV Total 180 ml 198 ml 178 ml 176 ml Output Urine Total 250 ml # Voids 2 1 # Bowel Movements 0 Result Diagram: 05/03/17 0510 05/03/17 0510 ROS General: Fatigue, Weakness, Other (improving 10 point ROS done positives noted) Cardiac: Edema Neuro/MS: Other (right knee, open to air) Skin: Other (mild peripheral edema) Physical Exam Physical Exam PHYSICAL EXAMINATION GENERAL: This is a well-developed, female who appears to be in no acute distress. She is alert and awake, HEAD: Normocephalic. Facial features appear symmetric. OROPHARYNGEAL: Oropharynx clear NECK: Supple. Trachea midline without deviation. CARDIAC: Regular rhythm, regular rate, S1 and S2 , telemetry on LUNGS: Mild diminished to auscultation bilaterally. No active wheeze or rhonchi ABDOMEN: Soft, . Bowel sounds are heard in all four quadrants. Eating outside food EXTREMITIES: Trace lower extremity edema. Warm to touch NEUROLOGICAL: Patient mood and affect appropriate. SKIN:Warm and moist A/P Assessment and Plan (1) TOA (tubo-ovarian abscess) (2) Sepsis (3) Hypertension (4) History of CVA (cerebrovascular accident) (5) End stage chronic kidney disease (6) Thrombocytopenia (7) S/P endometrial ablation (8) History of renal transplant (9) Hypothyroidism (10) Anemia (11) Menorrhagia (12) Atrial fibrillation with rapid ventricular response (13) Left arm swelling (14) Pancytopenia Assessment and Plan vitals reviewed, normal trends labs reviewed, hemoglobin stable at 8.7, leukopenia WBC count 2.8, sodium 133, no positive wound and blood cultures currently being treated C. difficile colitis, symtoms improving daily, no loose stools noted today, check C. difficile with next stool -Continue vancomycin by mouth Infectious disease following -IR managing drains, they are to remain in place. They were flushed 04/28 in IR Menorrhagia, bilateral TOAs Status post ablation, medical management Status post left knee debridement, has Rosie infection Left knee is open to air, incision dry no erythema noted ID following and managing End-stage renal disease Hemodialysis per nephrology, HD yesterday, still has some peripheral edema noted Anemia, likely secondary to sepsis and chronic disease Thrombocytopenia Hematology oncology following Hypertension, stable Continue with medications-metoprolol and hydralazine Hypothyroidism Continue with medications telemetry, rate regular, recent atrial fib, continue to monitor, patient's sinus rhythm now appreciate cardiac consult and input, medical management Continue with physical therapy for evaluation Continue with Heparin 5000 units subcutaneous twice a day for DVT prophylaxis Continue with supportive care, DC planning when stable from consulting standpoint and medical management that can be managed at home. Patient is sitting up in chair and asking about discharge, she states that she has talked to her tourist adviser and the glass ribbon machine operator assistant who say that she can go home from their standpoint. ID has not seen her since the fourth, need evaluation for continued plan of care. D/W RN D/W pt, and male family member D/W Dr. Rodríguez, seen on his behalf Barbie Jiménez May 03, 2017 11:44
[2017-05-03] MEDS: FLUCONAZOLE 200 MG PREMIX BAG 100 ML IV SCH (14:56)
[2017-05-03] MEDS: NEOMYCIN/POLYMYXIN/BACITRACIN OINT 15 GM TUBE TOPICAL SCH ×2 (15:00→21:00)
--- NOTE | 2017-05-03 15:29 | HHI.IDPN ---
Subjective Subjective Remarks Patient is a 27-year-old female, who has a complicated medical history, recently underwent procedure for severe menstrual bleeding. She underwent D&C and ablation around March 24. 2 days prior to admission she started having significant abdominal pain, and some nausea. She also has had some fever and chills. She had episodes of diarrhea, but that has resolved. She also noted some mucousy bloody vaginal drainage. She presented to the hospital, and imaging studies showed significant inflammatory changes in the pelvis and possibly tubo-ovarian abscess. She has the transplanted kidney with hydronephrosis. Since admission she has been febrile up to 103. Her blood pressure is okay. She still has significant abdominal pain. The pain is in the lower quadrant and it radiates to her back. She denies any respiratory complaint. Patient has renal failure, and is anuric. 2 blood cultures done on admission are now reported as growing Enterobacter. Patient also has had problem with her left knee. She initially had fracture of her left patella, and has had arthroscopic surgery. There was a culture done in May that had Rosie albicans. Patient apparently had been given Diflucan previously. The last time she had any surgery on that left knee here in this area was in August, and this was done at [facility]. Culture it looks like from that surgery did not grow anything. Patient was subsequently referred to a doctor in [place], and she underwent more extensive surgery to her left knee. Culture reportedly grew yeast, and the patient was given Cresemba by the infectious disease physician who saw her at [facility]. She has a follow-up appointment with that infectious disease doctor around end of April. Notes reviewed Temps ok Drains removed yesterday Still with some loculated fluid on R Had one liquid stool Mild abdominal discomfort Had HD yesterday Feels overall better Antibiotics Meropenem Diflucan Vanco po Lines Port Past Medical History Hypothyroidism Hypertension GERD Endstage renal disease, on HD - diagnosis made when she was about 3 years old CVA in 2012 History of chronic steroid therapy. 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 Vital Signs Date Time Temp Pulse Resp B/P Pulse Ox O2 Delivery O2 Flow Rate FiO2 8/8/17 12:04 98.1 61 16 120/74 92 05/03/17 11:07 98 21 05/03/17 08:04 98.6 68 16 151/93 98 05/03/17 07:15 Room Air 05/03/17 04:00 Room Air 05/03/17 04:00 98.3 73 18 138/82 97 05/03/17 00:00 98.0 71 18 138/81 96 05/03/17 00:00 Room Air 05/02/17 20:00 Room Air 05/02/17 20:00 97.3 63 18 141/89 94 05/02/17 19:59 66 05/02/17 16:56 99 21 05/02/17 05/02/17 05/03/17 15:00 23:00 07:00 Intake Total 198 ml 178 ml 176 ml Balance 198 ml 178 ml 176 ml IV Total 198 ml 178 ml 176 ml # Voids 2 1 . Laboratory Tests Test 05/03/17 05:10 White Blood Count 2.8 TH/MM3 Red Blood Count 2.90 MIL/MM3 Hemoglobin 8.7 GM/DL Hematocrit 25.7 % Mean Corpuscular Volume 88.6 FL Mean Corpuscular Hemoglobin 30.1 PG Mean Corpuscular Hemoglobin 33.9 % Concent Red Cell Distribution Width 20.6 % Platelet Count 201 TH/MM3 Mean Platelet Volume 7.6 FL Neutrophils (%) (Auto) % Lymphocytes (%) (Auto) % Monocytes (%) (Auto) % Eosinophils (%) (Auto) % Basophils (%) (Auto) % Neutrophils # (Auto) TH/MM3 Lymphocytes # (Auto) TH/MM3 Monocytes # (Auto) TH/MM3 Eosinophils # (Auto) TH/MM3 Basophils # (Auto) TH/MM3 CBC Comment AUTO DIFF Differential Total Cells 100 Counted Neutrophils % (Manual) 61 % Band Neutrophils % 8 % Lymphocytes % 13 % Monocytes % 18 % Neutrophils # (Manual) 1.9 TH/MM3 Differential Comment FINAL DIFF MANUAL Platelet Estimate NORMAL Platelet Morphology Comment NORMAL Ovalocytes 1+ Laboratory Tests Test 05/03/17 05:10 Sodium Level 133 MEQ/L Potassium Level 3.8 MEQ/L Chloride Level 95 MEQ/L Carbon Dioxide Level 32.4 MEQ/L Anion Gap 6 MEQ/L Blood Urea Nitrogen 14 MG/DL Creatinine 3.23 MG/DL Estimat Glomerular Filtration 17 ML/MIN Rate Random Glucose 90 MG/DL Calcium Level 7.7 MG/DL Imaging Pelvis CT 04/26/17 0000 Signed Impressions: Service Date/Time: Wednesday, April 26, 2017 16:38 - CONCLUSION: 1. Moderate interval improvement following percutaneous drainage catheter placement in right sided hydro/pyosalpinx although there is residual mild to moderate [place]/hydrosalpinx. 2. Stable left sided pelvic drainage catheter with stable mild prominence of the left fallopian tube. No significant residual drainable fluid collection. 3. Remainder of examination is unchanged. Jefferson Huynh MD ons Abdomen/Pelvis CT 04/20/17 0000 Signed Impressions: Service Date/Time: Thursday, April 20, 2017 18:16 - CONCLUSION: 1. The complex fluid collection left adnexa has significantly decreased in size. 2. Stable findings as above. Yusuf Jacob MD Abscess Drainage CT 04/19/17 0957 Signed Impressions: Service Date/Time: Wednesday, April 19, 2017 11:12 - CONCLUSION: Uncomplicated CT guided drainage. Galdino Heredia MD Abdomen/Pelvis CT 04/18/17 0000 Signed Impressions: Service Date/Time: Tuesday, April 18, 2017 16:08 - CONCLUSION: 1. Stable bilateral adnexal complex cystic masses/collections. 2. Hepatosplenomegaly. 3. Tiny bilateral pleural effusions with adjacent bilbasilar atelectasis. 4. Tiny pericardial effusion. 5. Cardiomegaly. Mikael León MD Pelvis Ultrasound 04/17/17 0000 Signed Impressions: Service Date/Time: Monday, April 17, 2017 11:32 - CONCLUSION: There are complex adnexal masses bilaterally and a normal left ovary is not visualized, however the right ovary is visualized and the above-mentioned adnexal mass appears to be separate from it. Possibility of pyosalpinx should be entertained although the left ovary is not seen and therefore tubo-ovarian abscess in the left ovary is not excluded. Tin Spencer MD Chest X-Ray 04/16/17 0000 Signed Impressions: Service Date/Time: Sunday, April 16, 2017 03:44 - CONCLUSION: No acute disease Chris Myrick MD Pelvis MRI 04/15/17 0000 Signed Impressions: Service Date/Time: Saturday, April 15, 2017 18:39 - CONCLUSION: 1. The uterus is normal in appearance without obvious endometrial thickening or mass. 2. Normal appearing ovaries are not visualized. In the adnexal region bilaterally dilated tortuous tubular structures are seen with a cystic complex appearance concerning for bilateral hydrosalpinx and tubo-ovarian abscess formation given the extensive inflammatory changes should be considered. 3. Abnormal circumferential bowel wall thickening involving the rectum. 4. Right lower quadrant transplant kidney with hydronephrosis. Moe Aragon MD Physical Exam GENERAL: awake, alert, NAD SKIN: Warm and dry. No generalized rash HEAD: Atraumatic. Normocephalic. No temporal wasting, or tenderness. EYES: [place] conjunctiva. No petechia or hemorrhage. No scleral icterus. No injection or drainage. EARS, NOSE AND THROAT: Nose without bleeding or purulent nasal discharge. Mucous membranes pink and moist. No oral lesions noted. NECK: Trachea midline. Supple and not tender, no meningeal signs CARDIOVASCULAR: Regular rate and rhythm. No murmurs, rubs or gallops heard RESPIRATORY: Clear to auscultation. No rales, wheezing or rhonchi. Decreased at bases. Port in R upper chest, no evidence of infection ABDOMEN: Less distended, mild tenderness EXTREMITIES: No clubbing, cyanosis. No pedal edema. Her L knee has improving effusion, healed incisions with some scabs present. Improved swelling LUE NEUROLOGICAL: Non-focal PSYCHIATRIC: cooperative. LINE: Port with no evidence of infection Assessment & Plan Remarks IMPRESSION Enterobacter sepsis, due to TOA - has [address] - recent D and C, and ablation for heavy bleeding; not sexually active - has some rectal wall thickening - has port TOA - still with some loculated fluid in R Recurrent fevers, ?source, resolved since second drain placed ESRD, previous transplant x 5, last one done 2014 - on HD had AVG in her L upper arm Infection L knee, with yeast , OR end of January, has been on Cresemba, clinically improving C diff colitis, better, but high risk of worsening due to continued Abx use Pancytopenia, stable - leukopenia, ?due to meds (Zosyn, Flagyl), ?due to infection, better RECOMMENDATION Stop Meropenem PO Levaquin - D/W patient and mother, need to watch closely for worsening of her diarrhea - 4-6 weeks Abx depending on resolution of fluid collections Continue Diflucan for her knee infection, change to po - she has appointment with her ID in [place] - C/S from [place] reviewed - had Rosie albicans and sensitive to Diflucan and echinocandins Continue po VAnco for C diff - 125 TID while on Abx Monitor progress Will need repeat imaging studies to document resolution of fluid collections Take probiotics Will need ID fup with Dr Mayo on D/C Explained my recommendations to mother and patient D/W Aury Cabrera MD May 03, 2017 15:29
--- NOTE | 2017-05-03 16:32 | HHI.NPPN ---
Subjective General Problems: Anemia, Hypertension Renal Failure: End Stage Renal Disease History of Present Illness 27-year-old female with past medical history of hypertension, hypothyroidism, gastroesophageal reflux disease, history of chronic anemia, end-stage renal disease on hemodialysis two times per week, history of multiple renal transplants in the past who was admitted because of heavy vaginal bleeding after she had an IUD placed. I was called to see the patient for the management of dialysis. Additional Remarks Patient is alert, no SOB, abd. pain is much better. Review of Systems General Constitutional: Fatigue Cardiovascular Cardiac: MUIR Gastrointestinal Gastrointestinal: Abdominal Pain, Nausea & Vomiting, Diarrhea Objective Data Data 05/02/17 05/03/17 19:00 07:00 Intake Total 198 ml 354 ml Balance 198 ml 354 ml IV Total 198 ml 354 ml # Voids 3 Vital Signs Date Time Temp Pulse Resp B/P Pulse Ox O2 Delivery O2 Flow Rate FiO2 05/03/17 12:04 98.1 61 16 120/74 92 05/03/17 11:07 98 21 05/03/17 08:15 68 05/03/17 08:04 98.6 68 16 151/93 98 05/03/17 07:15 Room Air 05/03/17 04:00 Room Air 05/03/17 04:00 98.3 73 18 138/82 97 05/03/17 00:00 98.0 71 18 138/81 96 05/03/17 00:00 Room Air 05/02/17 20:00 Room Air 05/02/17 20:00 97.3 63 18 141/89 94 05/02/17 19:59 66 05/02/17 16:56 99 21 -: 05/03/17 0510 05/03/17 0510 Physical Exam General Appearance: No Acute Distress, Comfortable Pulmonary Resp Exam: Breath Sounds Equal, Decreased Bases, Diminished Breath Sounds Cardiology CV Exam: Arrhythmia Gastrointestinal/Abdomen GI Exam: Soft, Positive Bowel Movement, Non-Distended Extremeties Extremities Exam: Trace Edema Neurologic Neuro Exam: Alert, Awake, Oriented, Obtunded Psychiatric Psych Exam: Appropriate Responses Assessment/Plan Assessment Summary: Anemia of CKD, Hypertension, End Stage Renal Disease, Transplant Kidney Status Problem List: (1) Hypertension (2) Hypothyroidism (3) History of CVA (cerebrovascular accident) (4) Renal transplant failure and rejection (5) End stage chronic kidney disease (6) Anemia (7) Sepsis Plan History of kidney transplant since age 4 first from the father subsequently mother these lasted for about 15 years and afterwards she received a cadaveric kidney transplant and she received fifth 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 Now on Levaquin and Diflucan. On oral Vancomycin for C.diff colitis. Epogen for anemia. Hgb. is better post transfusion. Start Lasix as she was on it before. HD will be in AM. Problem Qualifiers (1) Hypertension: Qualified Code: I10 - Essential hypertension (2) Hypothyroidism: Qualified Code: E03.9 - Hypothyroidism, unspecified type (3) Anemia: Qualified Code: N18.6 - Anemia in chronic kidney disease, on chronic dialysis Veronica Pichardo MD May 03, 2017 16:32
[2017-05-03] MEDS: LACTOBACILLUS ACIDOPHILUS TAB PO SCH (17:59)
[2017-05-03] MEDS: LEVOFLOXACIN 250 MG TAB PO SCH (17:59)
[2017-05-03] MEDS: FUROSEMIDE 80 MG TAB PO SCH (18:10)
[2017-05-03] MEDS: METOPROLOL TARTRATE 50 MG TAB PO SCH (21:45)
[2017-05-04] VITALS: BP 138/89; PULSE 60; RESP 18; TEMP 98.1; O2SAT 97
[2017-05-04 04:00] VITALS: BP 128/80; PULSE 65; RESP 18; TEMP 98.6; O2SAT 93
[2017-05-04] MEDS: INSULIN NovoLIN REGULAR SUPPLEMENTAL SCALE SQ SCH ×5 (04:00→16:00)
[2017-05-04] MEDS: CHLORHEXIDINE GLUCONATE 2 % 1 PACK (2 CLOTHS) TOP SCH (04:00)
[2017-05-04] MEDS: LEVOTHYROXINE SODIUM 25 MCG TAB PO SCH (06:14)
[2017-05-04 08:00] VITALS: BP 150/69; PULSE 53; RESP 18; TEMP 98.2; O2SAT 98
[2017-05-04] MEDS: FUROSEMIDE 80 MG TAB PO SCH ×2 (09:00→16:55)
[2017-05-04] MEDS: VANCOMYCIN 500 MG VIAL (FOR ORAL USE ONLY) PO SCH ×3 (09:00→17:00)
[2017-05-04] MEDS: DOCUSATE SODIUM 50 MG/SENNA 8.6 MG TAB PO SCH (09:00)
[2017-05-04] MEDS: LACTOBACILLUS ACIDOPHILUS TAB PO SCH ×3 (09:00→16:59)
[2017-05-04] MEDS: FAMOTIDINE 20 MG/2 ML VIAL IV PUSH SCH (09:00)
[2017-05-04] MEDS: SODIUM CHLORIDE 0.9% FLUSH 10 ML FLUSH SCH (09:00)
[2017-05-04] MEDS: DEXTROSE 10% INJ 1,000 ML IV SCH (11:17)
[2017-05-04 11:56] VITALS: O2SAT 95
[2017-05-04] MEDS ORDERED: FURO80TA PO (12:35)
[2017-05-04] MEDS ORDERED: LEVA250T14 PO (12:35)
[2017-05-04] MEDS ORDERED: LEVO25TA4 PO (12:35)
[2017-05-04] MEDS ORDERED: METO-309 PO (12:35)
[2017-05-04] MEDS ORDERED: METO-338 PO (12:35)
[2017-05-04] MEDS ORDERED: CARD180C5 PO (12:35)
[2017-05-04 12:37] VITALS: BP 150/92; PULSE 71; RESP 18; TEMP 97.3; O2SAT 95
--- NOTE | 2017-05-04 12:37 | HHI.DCPOC ---
Discharge Care Plan Diagnosis: (1) Bilateral tubo-ovarian mass (2) Pancytopenia (3) S/P endometrial ablation (4) Renal transplant recipient (5) Atrial fibrillation with rapid ventricular response (6) Left arm swelling (7) Menorrhagia (8) Hemodialysis patient (9) TOA (tubo-ovarian abscess) (10) Thrombocytopenia (11) Renal transplant disorder Your Health Problems Are: Difficulty with ADL Incision/Drains Inflammation Goals to Promote Your Health * To prevent worsening of your condition and complications * To maintain your health at the optimal level Directions to Meet Your Goals Take your medications as prescribed Follow your dietary instruction Follow activity as directed Keep your appointments as scheduled Take your immunizations and boosters as scheduled If your symptoms worsen call your PCP, if no PCP go to Urgent Care Center or Emergency Room Smoking is Dangerous to Your Health. Avoid second hand smoke Call the 24-hour hour crisis hotline for domestic abuse at [facility]. [facility] May 04, 2017 12:37
[2017-05-04] MEDS ORDERED: DULO1CAP2 PO (12:43)
[2017-05-04] MEDS ORDERED: PRED5TAB PO (12:43)
[2017-05-04] MEDS ORDERED: VANC125C3 PO (12:43)
--- NOTE | 2017-05-04 12:59 | HHI.PR ---
Subjective Remarks going for HD today had loose stool yesterday, none today eating a little better no fever drains removed anxious to go home will be leaving after HD doesn't want HHC, lives with parents had OP therapy arranged. Objective Objective Results - Vital Signs Date Time Temp Pulse Resp B/P Pulse Ox O2 Delivery O2 Flow Rate FiO2 05/04/17 12:37 97.3 71 18 150/92 95 05/04/17 11:56 95 05/04/17 08:00 98.2 53 18 150/69 98 05/04/17 04:00 Room Air 05/04/17 04:00 98.6 65 18 128/80 93 05/04/17 00:05 Room Air 05/04/17 00:00 98.1 60 18 138/89 97 05/03/17 20:15 61 05/03/17 20:00 Room Air 05/03/17 20:00 98.4 60 18 151/89 95 05/03/17 16:04 98.0 62 16 126/72 94 I/O 05/03/17 05/03/17 05/03/17 05/04/17 05/04/17 05/04/17 07:00 15:00 23:00 07:00 15:00 23:00 Intake Total 176 ml 496 ml 504 ml 1162 ml Output Total 200 ml 450 ml Balance 176 ml 496 ml 304 ml 712 ml Intake Oral 320 ml 420 ml 1080 ml IV Total 176 ml 176 ml 84 ml 82 ml Output Urine Total 200 ml 450 ml # Voids 1 3 # Bowel Movements 0 0 0 Result Diagram: 05/03/17 0510 05/03/17 0510 Imaging Last Impressions Pelvis CT 04/26/17 0000 Signed Impressions: Service Date/Time: Wednesday, April 26, 2017 16:38 - CONCLUSION: 1. Moderate interval improvement following percutaneous drainage catheter placement in right sided hydro/pyosalpinx although there is residual mild to moderate [place]/hydrosalpinx. 2. Stable left sided pelvic drainage catheter with stable mild prominence of the left fallopian tube. No significant residual drainable fluid collection. 3. Remainder of examination is unchanged. Jefferson Huynh MD Chest X-Ray 04/24/17 0000 Signed Impressions: Service Date/Time: Monday, April 24, 2017 09:11 - CONCLUSION: 1. Increasing consolidation is on the right 2. Persistent mild interstitial edema present. Can Vidal MD FACR Abscess Drainage CT 04/24/17 0000 Signed Impressions: Service Date/Time: Monday, April 24, 2017 14:06 - CONCLUSION: Uncomplicated CT guided drainage of a right anterior pelvic fluid collection. 160 mL of purulent material was obtained. Samples sent for evaluation. Elvis Tom Jr., MD Abdomen/Pelvis CT 04/22/17 0000 Signed Impressions: Service Date/Time: Saturday, April 22, 2017 17:30 - CONCLUSION: The fluid collection adjacent to the left percutaneous drain has not changed since 2 days ago and multiseptated pyosalpinx on the right side has also not significantly changed. The rest of the examination has not changed. Tin Spencer MD Upper Extremity Ultrasound 04/19/17 0000 Signed Impressions: Service Date/Time: Wednesday, April 19, 2017 20:24 - CONCLUSION: No DVT in either upper extremity. Yusuf Jacob MD Pelvis Ultrasound 04/17/17 0000 Signed Impressions: Service Date/Time: Monday, April 17, 2017 11:32 - CONCLUSION: There are complex adnexal masses bilaterally and a normal left ovary is not visualized, however the right ovary is visualized and the above-mentioned adnexal mass appears to be separate from it. Possibility of pyosalpinx should be entertained although the left ovary is not seen and therefore tubo-ovarian abscess in the left ovary is not excluded. Tin Spencer MD Pelvis MRI 04/15/17 0000 Signed Impressions: Service Date/Time: Saturday, April 15, 2017 18:39 - CONCLUSION: 1. The uterus is normal in appearance without obvious endometrial thickening or mass. 2. Normal appearing ovaries are not visualized. In the adnexal region bilaterally dilated tortuous tubular structures are seen with a cystic complex appearance concerning for bilateral hydrosalpinx and tubo-ovarian abscess formation given the extensive inflammatory changes should be considered. 3. Abnormal circumferential bowel wall thickening involving the rectum. 4. Right lower quadrant transplant kidney with hydronephrosis. Moe Aragon MD ROS General: No: Fatigue, Weakness HEENT: No: Sore Throat, Dysphagia Cardiac: Edema, No: Chest Pain, Palpitations Pulmonary: No: Cough, SOB, Wheezing GI: Abdominal Pain (improved ), No: BM, Diarrhea, N/V /VIOLIN MAKER HAND: No: Dysuria, Urgency Neuro/MS: No: Lightheaded, Confusion Psych: No: Anxiety, Depression Skin: No: Itching, Rash Physical Exam Physical Exam GENERAL: This is a well-nourished, well-developed patient, in no apparent distress. SKIN: No rashes, ecchymoses or lesions. Cool and dry. HEAD: Atraumatic. Normocephalic. No temporal or scalp tenderness. EYES: Pupils equal round and reactive. Extraocular motions intact. No scleral icterus. No injection or drainage. ENT: Nose without bleeding, purulent drainage or septal hematoma. Throat without erythema, tonsillar hypertrophy or exudate. Uvula midline. Airway patent. NECK: Trachea midline. No JVD or lymphadenopathy. Supple, nontender, no meningeal signs. CARDIOVASCULAR: Regular rate and rhythm without murmurs, gallops, or rubs. RESPIRATORY: Essentially clear, slightly diminished at bases. GASTROINTESTINAL: Abdomen soft, mildly tender, nondistended. No hepato- splenomegaly, or palpable masses. No guarding. Has 2 percutaneous drain with scant serosanguineous drainage. MUSCULOSKELETAL: Left knee erythematous, has incision from recent surgery. No erythema. Bilateral lower extremities with trace pretibial edema, pedal pulses 2+. No calf tenderness. Negative Homans sign bilaterally. Left arm edematous, left AVS noted. NEUROLOGICAL: Awakes to voice, alert oriented 3. No focal deficits. Urinary Catheter: No Vascular Central Line Catheter: No A/P Diagnosis: (1) TOA (tubo-ovarian abscess) (2) Sepsis (3) Hypertension (4) History of CVA (cerebrovascular accident) (5) End stage chronic kidney disease (6) Thrombocytopenia (7) S/P endometrial ablation (8) History of renal transplant (9) Hypothyroidism (10) Anemia (11) Menorrhagia (12) Atrial fibrillation with rapid ventricular response (13) Left arm swelling (14) Pancytopenia Assessment and Plan 27-year-old female with multiple comorbidities, end-stage renal disease and previous renal transplant and failure, menorrhagia. Presented to emergency room with sepsis, found with bilateral TOAs. Underwent CT-guided percutaneous drainage of left and right tubo-ovarian abscesses. Positive for C. difficile colitis -Continue with antibiotics -Continue vancomycin by mouth Infectious disease following -IR managed drains. They were flushed 04/28 in IR -CT of abdomen and pelvis repeated, results noted. Improving, still with some residual in right. Drains now removed -ID recommendations noted, Levaquin, Diflucan and Vanco PO needs to f/u with ID in [place] has appt. at end of April. Menorrhagia, bilateral TOAs Status post ablation Dr. Espinoza continues to follow patient -cleared for dc, needs f/u sono in her office one week. F/U Dr. Harris. Status post left knee debridement, has Rosie infection ID following and managing End-stage renal disease Hemodialysis per nephrology Left arm swelling, went to IR 04/28 for venogram shows patent AVF with good flow.Stenosis of brachiocephalic vein which responded well to WELL TENDER -Restarted on Lasix PO per renal. Anemia, likely secondary to sepsis Thrombocytopenia Patient has received multiple blood products Hematology oncology following -HH 6.6/19.2, 2 units PRBC given 04/29 -H&H stable -Continue Procrit Hypertension, stable Continue with medications-metoprolol and hydralazine ICU delirium, appears to be resolving Metabolic encephalopathy Continue to monitor neuro status Patient currently on melatonin 5 mg daily at bedtime when necessary -no hallucinations, improving. Sleeping okay -Off Dilaudid now, continue with oxycodone, patient motivated to continue weaning herself off of narcotics. -resolved. Hypothyroidism Continue with medications Ventricular bigeminy, has resolved Continuous cardiac telemetry -Continue with beta anny -continue multaq A. fib with RVR overnight, has history with prior ablation per Dr. Chowdary -appreciate card input -off cardizem gtt, on PO now Continue with Multaq, beta blockers -Echo EF 60-65%, mod pulm hypertension -Serial cardiac enzymes, negative -Stable, no afib Continue with physical therapy for evaluation Continue with Heparin 5000 units subcutaneous twice a day for DVT prophylaxis Doesn't want [facility] has OP PT set up Pt. ready for discharge, afebrile, cleared by consultants F/U Dr. Espinoza 1 weeks, needs sono F/U Dr. Harris F/U nephrology Diet-heart healthy Activity-as tolerated D/W RN D/W pt D/W Dr. Rodríguez This patient was seen by myself and , this note is written on his behalf Problem Qualifiers (1) Hypertension: Qualified Code: I10 - Essential hypertension (2) Hypothyroidism: Qualified Code: E03.9 - Hypothyroidism, unspecified type (3) Anemia: Qualified Code: N18.6 - Anemia in chronic kidney disease, on chronic dialysis (4) Menorrhagia: Qualified Code: N92.4 - Excessive bleeding in premenopausal period Jacque Obando PHOTO EDITOR May 04, 2017 12:59
[2017-05-04] MEDS ORDERED: FLUCONAZOLE 200 MG TAB PO SCH (13:00)
[2017-05-04] MEDS ORDERED: DIFL200T PO (13:58)
[2017-05-04] MEDS ORDERED: OXYC-392 PO (14:04)
[2017-05-04] MEDS: EPOETIN ALFA 20,000 UNITS/ML VIAL SQ SCH (15:50)
--- NOTE | 2017-05-04 16:30 | HHI.NPPN ---
Subjective General Problems: Anemia, Hypertension Renal Failure: End Stage Renal Disease History of Present Illness 27-year-old female with past medical history of hypertension, hypothyroidism, gastroesophageal reflux disease, history of chronic anemia, end-stage renal disease on hemodialysis two times per week, history of multiple renal transplants in the past who was admitted because of heavy vaginal bleeding after she had an IUD placed. I was called to see the patient for the management of dialysis. Additional Remarks Patient is alert,seen after HD, doing better, no abd. pain, no SOB. Review of Systems General Constitutional: Fatigue Cardiovascular Cardiac: MUIR Gastrointestinal Gastrointestinal: Abdominal Pain, Nausea & Vomiting, Diarrhea Objective Data Data 05/03/17 05/04/17 19:00 07:00 Intake Total 496 ml 1666 ml Output Total 650 ml Balance 496 ml 1016 ml Intake Oral 320 ml 1500 ml IV Total 176 ml 166 ml Output Urine Total 650 ml # Voids 3 # Bowel Movements 0 0 Vital Signs Date Time Temp Pulse Resp B/P Pulse Ox O2 Delivery O2 Flow Rate FiO2 05/04/17 12:37 97.3 71 18 150/92 95 05/04/17 11:56 95 05/04/17 08:16 Room Air 05/04/17 08:00 98.2 53 18 150/69 98 05/04/17 04:00 Room Air 05/04/17 04:00 98.6 65 18 128/80 93 05/04/17 00:05 Room Air 05/04/17 00:00 98.1 60 18 138/89 97 05/03/17 20:15 61 05/03/17 20:00 Room Air 05/03/17 20:00 98.4 60 18 151/89 95 -: 05/03/17 0510 05/03/17 0510 Physical Exam General Appearance: No Acute Distress, Comfortable Pulmonary Resp Exam: Breath Sounds Equal, Decreased Bases, Diminished Breath Sounds Cardiology CV Exam: Arrhythmia Gastrointestinal/Abdomen GI Exam: Soft, Positive Bowel Movement, Non-Distended Extremeties Extremities Exam: Trace Edema Neurologic Neuro Exam: Alert, Awake, Oriented, Obtunded Psychiatric Psych Exam: Appropriate Responses Assessment/Plan Assessment Summary: Anemia of CKD, Hypertension, End Stage Renal Disease, Transplant Kidney Status Problem List: (1) Hypertension (2) Hypothyroidism (3) History of CVA (cerebrovascular accident) (4) Renal transplant failure and rejection (5) End stage chronic kidney disease (6) Anemia (7) Sepsis Plan History of kidney transplant since age 4 first from the father subsequently mother these lasted for about 15 years and afterwards she received a cadaveric kidney transplant and she received fifth 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 Now on Levaquin and Diflucan. On oral Vancomycin for C.diff colitis. Epogen for anemia. Hgb. is better post transfusion. On Lasix, HD done now. Possible D/C, to follow with her Brand Mgr. Problem Qualifiers (1) Hypertension: Qualified Code: I10 - Essential hypertension (2) Hypothyroidism: Qualified Code: E03.9 - Hypothyroidism, unspecified type (3) Anemia: Qualified Code: N18.6 - Anemia in chronic kidney disease, on chronic dialysis Veronica Pichardo MD May 04, 2017 16:30
[2017-05-04] MEDS: METOPROLOL TARTRATE 100 MG TAB PO SCH (16:52)
[2017-05-04] MEDS: DULoxetine HCl DR 30 MG CAP PO SCH (16:52)
[2017-05-04] MEDS: LEVOFLOXACIN 250 MG TAB PO SCH (16:52)
[2017-05-04] MEDS: predniSONE 5 MG TAB PO SCH (16:52)
[2017-05-04 16:53] VITALS: BP 142/86; PULSE 80; RESP 18; TEMP 98.9; O2SAT 93
[2017-05-04] MEDS: NEOMYCIN/POLYMYXIN/BACITRACIN OINT 15 GM TUBE TOPICAL SCH (16:53)
[2017-05-04] MEDS: DRONEDARONE 400 MG TAB PO SCH (16:54)
[2017-05-04] MEDS: CHOLECALCIFEROL (VIT D3) 1000 UNIT TAB PO SCH (16:54)
[2017-05-04] MEDS: DILTIAZEM-CD 180 MG CAP ER PO SCH (16:54)
[2017-05-04] MEDS: ASPIRIN EC 81 MG TABEC PO SCH (16:54)
--- NOTE | 2017-05-04 19:18 | HHI.DS ---
Discharge Summary Admission Date Apr 15, 2017 at 19:03 Discharge Date: May 04, 2017 Admitting Diagnosis (1) TOA (tubo-ovarian abscess) (2) Sepsis (3) Hypertension (4) History of CVA (cerebrovascular accident) (5) End stage chronic kidney disease (6) Thrombocytopenia (7) S/P endometrial ablation (8) History of renal transplant (9) Hypothyroidism (10) Anemia (11) Menorrhagia (12) Atrial fibrillation with rapid ventricular response (13) Left arm swelling (14) Pancytopenia Procedures CT-guided percutaneous drainage of left and right tubo-ovarian abscesses 04/19 and 04/24 CBC/BMP: 05/03/17 0510 05/03/17 0510 Significant Findings Laboratory Tests Test 05/03/17 05:10 White Blood Count 2.8 TH/MM3 (4.0-11.0) Red Blood Count 2.90 MIL/MM3 (4.00-5.30) Hemoglobin 8.7 GM/DL (11.6-15.3) Hematocrit 25.7 % (35.0-46.0) Red Cell Distribution Width 20.6 % (11.6-17.2) Band Neutrophils % 8 % (0-6) Monocytes % 18 % (0-8) Ovalocytes 1+ (NORMAL) Prothrombin Time 12.4 SEC (9.8-11.6) Activated Partial 36.9 SEC Thromboplast Time (24.3-30.1) Sodium Level 133 MEQ/L (136-145) Chloride Level 95 MEQ/L (98-107) Carbon Dioxide Level 32.4 MEQ/L (21.0-32.0) Creatinine 3.23 MG/DL (0.50-1.00) Estimat Glomerular Filtration 17 ML/MIN (>89) Rate Calcium Level 7.7 MG/DL (8.5-10.1) Imaging Last Impressions Abdomen/Pelvis CT 05/02/17 0600 Signed Impressions: Service Date/Time: Tuesday, May 02, 2017 12:17 - CONCLUSION: Persistent grossly stable loculations adjacent to pigtail drainage catheter in the deep right pelvis. Stable grossly satisfactory appearance on the left with left- sided drainage catheter in stable position. 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 There is clearly an elastic component to this stenosis. If the stenosis recurs repeat venoplasty can be considered. If this becomes an ongoing issue stent placement may be needed. Elvis Tom Jr., MD Pelvis CT 04/26/17 0000 Signed Impressions: Service Date/Time: Wednesday, April 26, 2017 16:38 - CONCLUSION: 1. Moderate interval improvement following percutaneous drainage catheter placement in right sided hydro/pyosalpinx although there is residual mild to moderate Napavine/hydrosalpinx. 2. Stable left sided pelvic drainage catheter with stable mild prominence of the left fallopian tube. No significant residual drainable fluid collection. 3. Remainder of examination is unchanged. Jefferson Huynh MD Chest X-Ray 04/24/17 0000 Signed Impressions: Service Date/Time: Monday, April 24, 2017 09:11 - CONCLUSION: 1. Increasing consolidation is on the right 2. Persistent mild interstitial edema present. Can Vidal MD FACR Abscess Drainage CT 04/24/17 0000 Signed Impressions: Service Date/Time: Monday, April 24, 2017 14:06 - CONCLUSION: Uncomplicated CT guided drainage of a right anterior pelvic fluid collection. 160 mL of purulent material was obtained. Samples sent for evaluation. Elvis Tom Jr., MD Upper Extremity Ultrasound 04/19/17 0000 Signed Impressions: Service Date/Time: Wednesday, April 19, 2017 20:24 - CONCLUSION: No DVT in either upper extremity. Yusuf Jacob MD Pelvis Ultrasound 04/17/17 0000 Signed Impressions: Service Date/Time: Monday, April 17, 2017 11:32 - CONCLUSION: There are complex adnexal masses bilaterally and a normal left ovary is not visualized, however the right ovary is visualized and the above-mentioned adnexal mass appears to be separate from it. Possibility of pyosalpinx should be entertained although the left ovary is not seen and therefore tubo-ovarian abscess in the left ovary is not excluded. Tin Spencer MD Pelvis MRI 04/15/17 0000 Signed Impressions: Service Date/Time: Saturday, April 15, 2017 18:39 - CONCLUSION: 1. The uterus is normal in appearance without obvious endometrial thickening or mass. 2. Normal appearing ovaries are not visualized. In the adnexal region bilaterally dilated tortuous tubular structures are seen with a cystic complex appearance concerning for bilateral hydrosalpinx and tubo-ovarian abscess formation given the extensive inflammatory changes should be considered. 3. Abnormal circumferential bowel wall thickening involving the rectum. 4. Right lower quadrant transplant kidney with hydronephrosis. Moe Aragon MD Hospital Course This a pleasant 27-year-old white female with significant past medical history of early renal failure in her teens that led to 5 transplants and now is on hemodialysis twice a week, chronic immunosuppression, prior pneumonia with ARDS , recent left knee debridement in joint sepsis, CVA on chronic anticoagulation, menorrhagia. Patient has had a history of having abnormal menstrual bleeding leading to menorrhagia. She follows up with Dr. Espinoza. She had a D&C with endometrial ablation on 03/24/2017 and returned to the hospital on 04/15/2017 with abdominal pain, fever, nausea and diarrhea. CT scan reported bilateral TOA , allograft kidney with hydronephrosis. Patient was admitted to the intensive care unit with multiple consultations for nephrology, infectious disease, hematology, Gen. surgery as well as gynecology. She was initially on vasopressor support. She has require blood product replacement is noted with anemia and thrombocytopenia. On 04/19/[address]-guided percutaneous drainage of left tubo-ovarian abscess in interventional radiology. She has been managed on IV antibiotics. On 04/25/[address]-guided drainage place on the right sided pelvic collection. She was also positive for C. difficile. Throughout the hospitalization, patient has had problems with ventricular bigeminy, delirium. She was continued to receive hemodialysis 3 x a week. ICU delirium resolved. At one point she was nothing by mouth and require PPN. Output from the left drain had decreased. Blood and wound cultures have come back positive for Enterobacter cloacae. Patient also has a sierra infection on the left knee from previous debridement. As she improved, patient was less febrile, she was more oriented and although she had occasional hallucinations. Her left arm was noted with swelling around the left AV graft and she was scheduled to have angiogram and possible angioplasty in IR. Hospitalist services were requested to assume medical management. Her Diagnoses were: (1) TOA (tubo-ovarian abscess) (2) Sepsis (3) Hypertension (4) History of CVA (cerebrovascular accident) (5) End stage chronic kidney disease (6) Thrombocytopenia (7) S/P endometrial ablation (8) History of renal transplant (9) Hypothyroidism (10) Anemia (11) Menorrhagia (12) Atrial fibrillation with rapid ventricular response (13) Left arm swelling (14) Pancytopenia During the course of the hospitalization, the following took place: 27-year-old female with multiple comorbidities, end-stage renal disease and previous renal transplant and failure, menorrhagia. Presented to emergency room with sepsis, found with bilateral TOAs. Underwent CT-guided percutaneous drainage of left and right tubo-ovarian abscesses. Initially admitted to ICU with multiple consultants. She stabilized, tx to hospitalist and downgraded to telemetry Positive for C. difficile colitis -Continued with antibiotics -Continued vancomycin by mouth Infectious disease following -IR managed drains. They were flushed 04/28 in IR -CT of abdomen and pelvis repeated, results noted. Improving, still with some residual in right. Drains removed -ID recommendations noted, Levaquin, Diflucan and Vanco PO on discharge. Recommended she f/u with ID in [place] has appt. at end of April. Diflucan not ordered upon dc due to interaction with Multaq. She was recommended to continue on med she was on before admission. Menorrhagia, bilateral TOAs Status post ablation Dr. Espinoza assisted with patient management -cleared for dc, recommended she has f/u sono in her office one week. F/U Dr. Harris. Status post left knee debridement prior to admission, has Sierra infection. Was being treated with Cresemba by [place] doctor. ID was following and managing -treated with Diflucan while inpatient End-stage renal disease Hemodialysis per nephrology Left arm swelling, went to IR 04/28 for venogram shows patent AVF with good flow.Stenosis of brachiocephalic vein which responded well to DECOMMISSIONING WELL SITE MANAGER -Restarted on Lasix PO per renal. Anemia, likely secondary to sepsis Thrombocytopenia did received multiple blood products in ICU Hematology oncology following -HH dropped to 6.6/19.2, 2 units PRBC given 8/4 -H&H stable -put on Procrit Hypertension, stable Continued with medications-metoprolol and hydralazine ICU delirium, resolved Metabolic encephalopathy Continued to monitor neuro status Patient was currently on melatonin 5 mg daily at bedtime when necessary -no hallucinations, improved. sleeping okay -was weaned off Dilaudid now, continued with oxycodone, patient motivated to continue weaning herself off of narcotics. Hypothyroidism Continued with medications Ventricular bigeminy during ICU stay. Continuous cardiac telemetry -put on beta anny -continued multaq A. fib with RVR when she was tx to tele floor, has history with prior ablation per Dr. Hinds Put on Cardizem, card consulted. -appreciated card input, changed to PO Cardizem Continue with Multaq, beta blockers -Echo EF 60-65%, mod pulm hypertension -Serial cardiac enzymes, negative -Stable, no afib Continued with physical therapy for evaluation Continued with Heparin 5000 units subcutaneous twice a day for DVT prophylaxis Did not want [facility] has OP PT set up Pt. ready for discharge, afebrile, cleared by consultants F/U Dr. Espinoza 1 weeks, needs enio F/U Dr. Harris F/U nephrology Diet-heart healthy Activity-as tolerated Pt Condition on Discharge: Fair Discharge Disposition: Discharge Home Discharge Instructions DIET: Follow Instructions for: Heart Healthy Diet Activities you can perform: Weight Bearing as [place] Follow up Referrals: Cardiology with DR. HINDS Infectious Disease Nephrology [employer] IN[employer] with Ayala Espinoza MD New Medications: Vancomycin (Vancomycin) 125 Mg Cap 125 MG PO QID 125 MG ORALLY 4X A DAY FOR 14 DAYS, THEN DECREASE TO 125 MG ORALLY EVERY 12 HOURS X 7 DAYS, THEN DECREASE TO 125 MG ORALLY FOR 7 DAYS. Infection Days 77 Ref 0 CAP Diltiazem CD 24 HR (Cardizem CD 24 HR) 180 Mg Caper 180 MG PO DAILY atrial fibrillation #[address] (Duloxetine DR) 30 Mg Capdr 30 MG PO DAILY Pain Management #30 Ref 1 CAP Furosemide (Furosemide) 80 Mg Tab 80 MG PO BID@09,18 fluid overload #60 Ref 0 TAB Levofloxacin (Levaquin) 250 Mg Tablet 250 MG PO Q24H Infection #30 TAB Levothyroxine (Levothyroxine) 25 Mcg Tab 25 MCG PO DAILY@0600 hypothyroid #30 Ref 0 TAB Metoprolol Tartrate (Lopressor) 50 Mg Tab 50 MG PO HS irregular heart rate #30 Ref 0 TAB Metoprolol Tartrate (Lopressor) 100 Mg Tab 100 MG PO DAILY irregular heart rate #30 TAB Oxycodone (Oxycodone) 5 Mg Tab 5 MG PO Q4H PRN PAIN 1-5 #30 TAB Prednisone (Prednisone) 5 Mg Tab 7.5 MG PO DAILY Inflammation #30 Ref 0 TAB Continued Medications: Aspirin DR (Aspirin Adult Low Strength) 81 Mg Tabdr 81 MG PO DAILY TAB Cholecalciferol (Vitamin D-3) 2,000 Unit Tab 2000 UNITS PO DAILY Clonidine (Clonidine) 0.1 Mg Tab 0.1 MG PO BID PRN B/P greater than 180 #60 Ref 0 TAB Docusate Sodium (Colace) 100 Mg Capsule 100 MG PO DAILY Dronedarone (Multaq) 400 Mg Tab 400 MG PO BID Regulate Heart Beat Ref 0 TAB Ondansetron (Zofran) 4 Mg Tab 4 MG PO Q12HR PRN NAUSEA OR VOMITING Ref 0 TAB Oxycodone-Acetaminophen (Percocet) 5-325 mg Tab 1-2 TAB PO Q6H PRN PAIN Ref 0 TAB Discontinued Medications: Nitrofurantoin Monohydrate Macrocrystals (Macrobid) 100 Mg Cap 100 MG PO Q12HR Infection Days 7 Ref 0 CAP Jacque Obando [facility] May 04, 2017 19:18
== END 2017-05-04 17:23 | disposition home or self-care (01) | DRG 871 ==
LOC: NEPC 14:53 → NEDA 19:03 → HIMN 22:50 → N04B 04-27 15:39 → N04A 04-27 16:24
PROVIDERS: ADMIT Specialist; ATTEND Specialist
PROC: 30233N1 Transfusion of Nonautologous Red Blood Cells into Peripheral Vein, Percutaneous Approach (ICD-10-PCS; principal; 2017-04-15)
PROC: 6A551Z2 Pheresis of Platelets, Multiple (ICD-10-PCS; 2017-04-17)
PROC: 5A1D60Z (ICD-10-PCS; 2017-04-18)
PROC: 0T9B70Z Drainage of Bladder with Drainage Device, Via Natural or Artificial Opening (ICD-10-PCS; 2017-04-18)
PROC: 0U9 Female Reproductive System, Drainage (ICD-10-PCS; 2017-04-19)
PROC: 0W9J30Z Drainage of Pelvic Cavity with Drainage Device, Percutaneous Approach (ICD-10-PCS; 2017-04-24)
DX: A41.59 Other Gram-negative sepsis (principal); N18.6 End stage renal disease; G93.41 Metabolic encephalopathy; E87.4 Mixed disorder of acid-base balance; J90 Pleural effusion, not elsewhere classified; B37.89 Other sites of candidiasis; D61.818 Other pancytopenia; A04.7 Enterocolitis due to Clostridium difficile; I12.0 Hypertensive chronic kidney disease with stage 5 chronic kidney disease or end stage renal disease; T86.19 Other complication of kidney transplant; E44.1 Mild protein-calorie malnutrition; N13.30 Unspecified hydronephrosis; Z94.0 Kidney transplant status; F11.20 Opioid dependence, uncomplicated; I87.1 Compression of vein; R18.8 Other ascites; I95.9 Hypotension, unspecified; N70.93 Salpingitis and oophoritis, unspecified; Z99.2 Dependence on renal dialysis; Z86.73 Personal history of transient ischemic attack (TIA), and cerebral infarction without residual deficits; E03.9 Hypothyroidism, unspecified; K21.9 Gastro-esophageal reflux disease without esophagitis; Z79.52 Long term (current) use of systemic steroids; N92.0 Excessive and frequent menstruation with regular cycle; E16.2 Hypoglycemia, unspecified; N73.9 Female pelvic inflammatory disease, unspecified; R65.20 Severe sepsis without septic shock; D63.1 Anemia in chronic kidney disease; M25.511 Pain in right shoulder; M25.512 Pain in left shoulder; D64.89 Other specified anemias; Y83.0 Surgical operation with transplant of whole organ as the cause of abnormal reaction of the patient, or of later complication, without mention of misadventure at the time of the procedure; R16.2 Hepatomegaly with splenomegaly, not elsewhere classified; I48.91 Unspecified atrial fibrillation; E83.39 Other disorders of phosphorus metabolism; G47.00 Insomnia, unspecified; I27.2 Other secondary pulmonary hypertension; I45.81 Long QT syndrome; R09.02 Hypoxemia; K57.90 Diverticulosis of intestine, part unspecified, without perforation or abscess without bleeding; G89.29 Other chronic pain; N83.9 Noninflammatory disorder of ovary, fallopian tube and broad ligament, unspecified
CPT/HCPCS: 36430; 36591; 36600; 36902; 71010; 72192; 72195; 74176; 75989; 76856; 76937; 80048; 80053; 80074; 80076; 80202; 81001; 82140; 82550; 82805; 82948; 83010; 83605; 83615; 83735; 84100; 84155; 84439; 84443; 84484; 84550; 85007; 85014; 85018; 85025; 85027; 85049; 85060; 85379; 85384; 85597; 85598; 85610; 85613; 85730; 86022; 86077; 86146; 86147; 86850; 86870; 86880; 86900; 86901; 86920; 86922; 87040; 87070; 87077; 87186; 87205; 87493; 87641; 90384; 90935; 93005; 93306; 93970; 94150; 96374; 96375; 99152; 99153; C1725; C1729; C1769; C1887; C1894; J0131; J0282; J0485; J0692; J0694; J0696; J0780; J1170; J1450; J1644; J1940; J2060; J2185; J2250; J2270; J2405; J2543; J2550; J2790; J3010; J3370; J3430; J3480; J7030; J7042; J7050; J7060; J7070; J7512; P9016; P9035; Q4081; Q9967

== ENCOUNTER 2017-09-27 20:25 | Emergency (ER) | payer MEDICARE, BC ==
[~2017-09-27] VITALS: Ht 170.2 cm; Wt 65.5 kg
[~2017-09-27 20:25] MED LIST changes: -ASPI1TAB7 PO; +ASPI81TA16 PO; +CARD180C5 PO; -CARD240C6 PO; +CHOL1TAB42 PO; -CLON.1T TD; -CLON.2 PO; +CLON0.1T PO; +COLA100C5 PO; -DOCU1CAP39 PO; +DULO1CAP2 PO; +FURO80TA PO; -LACTCAP7 PO; +LEVA250T14 PO; +LEVO25TA4 PO; -LISI-363 PO; -LOES1TAB2 PO; -MAGN400 PO; +METO-309 PO; +METO-338 PO; -METO100T PO; -MINO2.5 PO; +MULT400T PO; -OMEP20TA PO; -ONDA4 PO; +OXYC-392 PO; -PERC2.5T PO; +PERC5TAB12 PO; -PRED5 PO; +PRED5TAB PO; -ROPI0.25 PO; -SODI453. PO; +VANC125C3 PO; -VITA20003 PO; -VITA25TA5 PO; +ZOFR4TAB PO
[2017-09-27 20:27] VITALS: BP 156/94; PULSE 73; RESP 16; TEMP 97.9; O2SAT 100
--- NOTE | 2017-09-27 20:55 | PD ---
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 Patient was just discharged from [facility] after having been admitted for left knee debridement for chronic left knee septic arthritis. Patient states she was so excited to leave the hospital, she forgot that her port was accessed. She went home and the nurse called her and told her that she needs to have it de-accessed. Denies any complaints at this time. States she couldn't understand herself but she didn't have any heparin at home. None of her nurse friends have heparin. She lives around here. PFSH Past Medical History Hx Anticoagulant Therapy: Yes (Eliquis) Anemia: Yes Heart Rhythm Problems: Yes (irregular rhythm ) Cardiovascular Problems: Yes (A-fib, heart murmur) Cerebrovascular Accident: Yes Dialysis: Yes (dialysis fistula in left arm ) Deep Vein Thrombosis: Yes (STATES THAT SHE MAY HAVE ONE IN HER LEFT ARM.) Hypertension: Yes Immune Disorder: Yes Implanted Vascular Access Dvce: Yes (vascath left chest, power port right chest ) Respiratory: No Immunizations Current: Yes Pneumonia: Yes (x2) Renal Failure: Yes Seizures: Yes (seizure 3 years ago ) Thyroid Disease: Yes (parathyroid removed ) ?: Not Past Surgical History Body Medical Devices: left upper arm fistula Genitourinary Surgery: Yes (kidney transplantx5) Gynecologic Surgery: Yes (ablation x 2 wks ago) Oral Surgery: Yes Social History Alcohol Use: No Tobacco Use: No Substance Use: No Allergies-Medications (Allergen,Severity, Reaction): Coded Allergies: gabapentin (Unverified Allergy, Severe, 09/27/17) muscle spasms Reported Meds & Prescriptions Reported Meds & Active Scripts Active Oxycodone (Oxycodone HCl) 5 Mg Tab 5 Mg PO Q4H PRN Vancomycin (Vancomycin HCl) 125 Mg Cap 125 Mg PO QID 77 Days 125 MG ORALLY 4X A DAY FOR 14 DAYS, THEN DECREASE TO 125 MG ORALLY EVERY 12 HOURS X 7 DAYS, THEN DECREASE TO 125 MG ORALLY FOR 7 DAYS. Prednisone 5 Mg Tab 7.5 Mg PO DAILY Duloxetine DR (Duloxetine HCl) 30 Mg Capdr 30 Mg PO DAILY Lopressor (Metoprolol Tartrate) 100 Mg Tab 100 Mg PO DAILY Lopressor (Metoprolol Tartrate) 50 Mg Tab 50 Mg PO HS Levothyroxine (Levothyroxine Sodium) 25 Mcg Tab 25 Mcg PO DAILY@0600 Levaquin (Levofloxacin) 250 Mg Tablet 250 Mg PO Q24H Furosemide 80 Mg Tab 80 Mg PO BID@09,18 Cardizem CD 24 HR (Diltiazem CD 24 HR) 180 Mg Caper 180 Mg PO DAILY Reported Clonidine (Clonidine HCl) 0.1 Mg Tab 0.1 Mg PO BID PRN Multaq (Dronedarone) 400 Mg Tab 400 Mg PO BID Percocet (Oxycodone-Acetaminophen) 5-325 mg Tab 1-2 Tab PO Q6H PRN Zofran (Ondansetron HCl) 4 Mg Tab 4 Mg PO Q12HR PRN Colace (Docusate Sodium) 100 Mg Capsule 100 Mg PO DAILY Vitamin D-3 (Cholecalciferol) 2,000 Unit Tab 2,000 Units PO DAILY Aspirin Adult Low Strength (Aspirin) 81 Mg Tabdr 81 Mg PO DAILY Review of Systems Except as stated in HPI: all other systems reviewed are Neg Physical Exam Narrative GENERAL: Well-nourished, well-developed female in no acute distress. Afebrile. Ambulatory. SKIN: Focused skin assessment warm/dry. Port in the right chest wall is without evidence of infection. No surrounding erythema. Nontender. HEAD: Normocephalic. EYES: No scleral icterus. No injection or drainage. NECK: Supple, trachea midline. No JVD or lymphadenopathy. CARDIOVASCULAR: Regular rate and rhythm without murmurs, gallops, or rubs. RESPIRATORY: Breath sounds equal bilaterally. No accessory muscle use. PSYCHIATRIC: No delusional thought processes. No hallucinations. Data Data Last Documented VS Vital Signs Date Time Temp Pulse Resp B/P (MAP) Pulse Ox O2 Delivery O2 Flow Rate FiO2 09/27/17 20:27 97.9 73 16 156/94 (114) 100 Orders Orders Heparin Central Flush (Heparin Central F (09/27/17 20:45) Heparin Central Flush (Heparin Central F (09/27/17 20:45) MDM Medical Decision Making Medical Screen Exam Complete: Yes Emergency Medical Condition: Yes Medical Record Reviewed: Yes Differential Diagnosis Port maintenance, de-access, need for heparin flush Narrative Course 27-year-old female with multiple chronic medical conditions presents to the emergency room to have her port de-accessed. She was discharged from [facility] today after having had left knee surgery. The nurse called her and told her to return but she lives very far away and did not want to drive that far. States she would've done it herself but she did not have any heparin at home. Patient denies any complaints. The 5 mL/500 cc heparin flush was ordered and the nurse de-accessed the port without difficulty. Patient was thankful for care and discharged. Told to return for worsening symptoms. Diagnosis Primary Impression: Encounter for care related to vascular access port Referrals: Primary Care Physician Additional Instructions: Follow-up with PCP as needed. Return to the emergency room as needed for worsening symptoms. Med/Other Pt SpecificInfo: Prescription(s) given Disposition: 01 DISCHARGE HOME Condition: Stable Belia Fernandez Sep 27, 2017 20:55
== END 2017-09-27 21:36 | disposition home or self-care (01) ==
LOC: NEPK 20:25
DX: Z45.2 Encounter for adjustment and management of vascular access device (principal); I12.0 Hypertensive chronic kidney disease with stage 5 chronic kidney disease or end stage renal disease; N18.6 End stage renal disease; Z99.2 Dependence on renal dialysis
CPT/HCPCS: 99283; J1642

== ENCOUNTER 2018-01-31 10:03 | Inpatient (IN) | payer MEDICARE, BC ==
[2018-01-31] MEDS ORDERED: SODIUM CHLORIDE 0.9% FLUSH 10 ML FLUSH IVF (10:15)
[2018-01-31 10:53] LABS: AUTOMATED NEUTROPHIL # 11.3 TH/MM3 (1.8-7.7); BASOPHIL # 0.2 TH/MM3 (0-0.2); BASOPHIL % 1.5 % (0.0-2.0); EOSINOPHIL # 0.1 TH/MM3 (0-0.4); EOSINOPHIL % 0.9 % (0.0-4.0); HEMATOCRIT 24.9 % (35.0-46.0); HEMO FLAGS DIFF FINAL; HEMOGLOBIN 8.3 GM/DL (11.6-15.3); LYMPH % 7.1 % (9.0-44.0); LYMPHOCYTE # 0.9 TH/MM3 (1.0-4.8); MEAN CORPUSCULAR HEMOGLOBIN 32.8 PG (27.0-34.0); MEAN CORPUSCULAR HGB CONC 33.1 % (32.0-36.0); MEAN PLATELET VOLUME 6.3 FL (7.0-11.0); MONO % 4.2 % (0.0-8.0); MONOCYTE # 0.5 TH/MM3 (0-0.9); NEUT % 86.3 % (16.0-70.0); PLATELET COUNT 277 TH/MM3 (150-450); RED BLOOD COUNT 2.52 MIL/MM3 (4.00-5.30); RED CELL DISTRIBUTION WIDTH 15.4 % (11.6-17.2); WHITE BLOOD COUNT 13.1 TH/MM3 (4.0-11.0)
[2018-01-31 11:04] LABS: APTT (PATIENT) 38.8 SEC (24.3-30.1); INTERNATIONAL NORMALIZED RATIO 1.2 RATIO; PROTHROMBIN TIME - PATIENT 12.5 SEC (9.8-11.6)
[2018-01-31] MEDS: PIPERACIL-TAZO 4.5 GM PREMIX 100 ML IV (11:09)
[2018-01-31 11:11] LABS: LACTIC ACID 0.6 mmol/L (0.4-2.0)
[2018-01-31] MEDS: LORazepam 2 MG/ML VIAL IV PUSH (11:15)
[2018-01-31] MEDS: AZITHROMYCIN INJ 500 MG in SODIUM CHLOR 0.9% 250 ML INJ 250 ML IV (11:25)
[2018-01-31 11:26] LABS: ALBUMIN 2.6 GM/DL (3.4-5.0); ALKALINE PHOSPHATASE 435 U/L (45-117); ALT (GPT) 19 U/L (10-53); ANION GAP 15 MEQ/L (5-15); AST (GOT) 18 U/L (15-37); BICARBONATE 23.5 MEQ/L (21.0-32.0); BLOOD UREA NITROGEN 72 MG/DL (7-18); CALCIUM 7.2 MG/DL (8.5-10.1); CALCIUM-PROTEIN CORRECTED 8.1 MG/DL (8.5-10.1); CHLORIDE 91 MEQ/L (98-107); CREATINE KINASE 124 U/L (26-192); CREATININE 6.09 MG/DL (0.50-1.00); GLOMERULAR FILTRATION RATE 8 ML/MIN (>89); GLUCOSE,RANDOM 81 MG/DL (74-106); MAGNESIUM 1.5 MG/DL (1.5-2.5); POTASSIUM 6.1 MEQ/L (3.5-5.1); SODIUM (NA) 129 MEQ/L (136-145); TOTAL BILIRUBIN ADULT 0.9 MG/DL (0.2-1.0); TOTAL PROTEIN 5.4 GM/DL (6.4-8.2); TROPONIN I LESS THAN 0.02 NG/ML (0.02-0.05)
[2018-01-31] MEDS: ONDANSETRON HCL 4 MG/2 ML VIAL IV PUSH (11:30)
[2018-01-31 11:52] LABS: CKMB 7.1 NG/ML (0.5-3.6)
[2018-01-31] MEDS ORDERED: SODIUM CHLOR 0.9% 1000 ML INJ 1,000 ML OTHER ×2 (12:25)
[2018-01-31] MEDS ORDERED: SODIUM CHLOR 0.9% 1000 ML INJ 1,000 ML IV (12:25)
[2018-01-31] MEDS ORDERED: NITROGLYCERIN 0.4 MG SL 25 TABS/BTL SL (12:30)
[2018-01-31] MEDS ORDERED: ONDANSETRON HCL 4 MG/2 ML VIAL IV PUSH ×2 (12:30→13:15)
[2018-01-31] MEDS ORDERED: HEPARIN SODIUM - IV 10,000 UNITS/10 ML VIAL (12:30)
[2018-01-31] MEDS ORDERED: HEPARIN SODIUM - IV 10,000 UNITS/10 ML VIAL IV FLUSH (12:30)
[2018-01-31] MEDS ORDERED: MANNITOL 12.5 GM/50 ML VIAL IV (12:30)
[2018-01-31] MEDS ORDERED: diphenhydrAMINE HCL 25 MG CAP PO (12:30)
[2018-01-31] MEDS ORDERED: GENTAMICIN SULFATE 20 MG/2 ML VIAL OTHER (12:30)
[2018-01-31 13:01] LABS: BLOOD GAS BASE EXCESS -7.7 mmol/L (-2-2); BLOOD GAS CARBOXYHEMOGLOBIN 1.3 % (0-4); BLOOD GAS HCO3 17 mmol/L (22-26); BLOOD GAS METHEMOGLOBIN 0.8 % (0-2); BLOOD GAS O2 HGB SATURATION 87 % (90-100); BLOOD GAS PCO2 34 mmHg (38-42); BLOOD GAS PO2 68 mmHG (61-120); BLOOD GAS TOTAL HGB 8.9 G/DL (12.0-16.0); TEMP CORR TO 98.6
[2018-01-31 13:02] LABS: CRITICAL VALUE YES; DRAW SITE RT RADIAL; FIO2 50 %; LITER FLOW 6 L/M; NUMBER OF ARTERIAL PUNCTURES 1; OXYGEN DEVICE VENTI MASK; STAT YES; ULNAR PULSE PRESENT
[2018-01-31] MEDS: CALCIUM GLUCONATE 10% 1 GM/10 ML VIAL SLOW IVP (13:02)
[2018-01-31] MEDS: SODIUM BICARBONATE 8.4% SOLN 50 MEQ/50 ML VIAL SLOW IVP (13:03)
[2018-01-31] MEDS ORDERED: Vancomycin Consult Pharmacy 1 EA OTHER (13:15)
[2018-01-31] MEDS ORDERED: MAGNESIUM HYDROXIDE SUSP 30 ML CUP PO (13:15)
[2018-01-31] MEDS ORDERED: SENNOSIDES 8.6 MG TAB PO (13:15)
[2018-01-31] MEDS ORDERED: CHLORHEXIDINE GLUCONATE 2 % 1 PACK (2 CLOTHS) TOP (13:15)
[2018-01-31] MEDS ORDERED: NURSING INFORMATION XX (13:15)
[2018-01-31] MEDS ORDERED: PILL SPLITTER OTHER (13:45)
[2018-01-31] MEDS: ALBUMIN 25% INJ 100 ML IV (13:53)
[2018-01-31] MEDS: EPOETIN ALFA 10,000 UNITS/ML VIAL IV PUSH (13:53)
[2018-01-31 14:44] LABS: B-TYPE NATRIURETIC PEPTIDE 1826 PG/ML (0-100)
[2018-01-31] MEDS: RESP: ALBUTEROL 2.5 MG/IPRATROPIUM 0.5 MG NEB (SCH) INH ×2 (15:00→21:00)
[2018-01-31 16:11] LABS: TROPONIN I LESS THAN 0.02 NG/ML (0.02-0.05)
[2018-01-31 16:57] LABS: HEPATITIS B CORE AB IGM NONREACTIVE (NONREACTIVE); HEPATITIS C AB IgG NONREACTIVE (NONREACTIVE)
[2018-01-31 17:17] LABS: HEPATITIS A AB IGM NONREACTIVE (NONREACTIVE)
[2018-01-31] MEDS: metroNIDAZOLE 500 MG INJ 100 ML IV ×2 (17:51→23:28)
[2018-01-31] MEDS: CEFEPIME INJ 1,000 MG in SODIUM CHLORIDE 0.9% INJ 100 ML IV (17:51)
[2018-01-31] MEDS: VANCOMYCIN INJ 1,000 MG in SODIUM CHLOR 0.9% 250 ML INJ 250 ML IV (21:04)
[2018-01-31] MEDS: ACETAMINOPHEN 325 MG TAB PO (21:04)
[2018-01-31 21:09] LABS: HEPATITIS B SURFACE ANTIGEN NONREACTIVE (NONREACTIVE)
[2018-01-31] MEDS: DRONEDARONE 400 MG TAB PO (21:16)
[2018-01-31] MEDS: levETIRAcetam INJ 250 MG in SODIUM CHLORIDE 0.9% INJ 100 ML IV (23:08)
[2018-01-31 23:14] LABS: MRSA PCR SURVEILLANCE MRSA NOT DETECTED (NOT DETECT)
[2018-01-31 23:27] LABS: ANION GAP 13 MEQ/L (5-15); BICARBONATE 28.3 MEQ/L (21.0-32.0); BLOOD UREA NITROGEN 43 MG/DL (7-18); CALCIUM 7.3 MG/DL (8.5-10.1); CHLORIDE 97 MEQ/L (98-107); CREATININE 4.05 MG/DL (0.50-1.00); GLOMERULAR FILTRATION RATE 13 ML/MIN (>89); GLUCOSE,RANDOM 72 MG/DL (74-106); POTASSIUM 4.6 MEQ/L (3.5-5.1); SODIUM (NA) 138 MEQ/L (136-145)
[2018-01-31 23:38] LABS: CALCIUM-PROTEIN CORRECTED 8.2 MG/DL (8.5-10.1); TOTAL PROTEIN 5.4 GM/DL (6.4-8.2)
[2018-01-31 23:59] LABS: B-TYPE NATRIURETIC PEPTIDE 2907 PG/ML (0-100)
[2018-02-01] MEDS: cloNIDine HCL 0.1 MG TAB PO ×3 (01:13→21:05)
[2018-02-01] MEDS: CHLORHEXIDINE GLUCONATE 2 % 1 PACK (2 CLOTHS) TOP (04:00)
[2018-02-01] MEDS: RESP: ALBUTEROL 2.5 MG/IPRATROPIUM 0.5 MG NEB (SCH) INH ×4 (04:06→19:51)
[2018-02-01] MEDS: LEVOTHYROXINE SODIUM 25 MCG TAB PO (04:37)
[2018-02-01] MEDS: ACETAMINOPHEN 325 MG TAB PO ×2 (04:46→15:27)
[2018-02-01 06:05] LABS: AUTOMATED NEUTROPHIL # 7.1 TH/MM3 (1.8-7.7); BASOPHIL % 0.3 % (0.0-2.0); EOSINOPHIL % 0.4 % (0.0-4.0); HEMATOCRIT 22.9 % (35.0-46.0); HEMO FLAGS DIFF FINAL; HEMOGLOBIN 7.5 GM/DL (11.6-15.3); LYMPH % 8.1 % (9.0-44.0); LYMPHOCYTE # 0.7 TH/MM3 (1.0-4.8); MEAN CELL VOLUME 100.6 FL (80.0-100.0); MEAN CORPUSCULAR HEMOGLOBIN 32.9 PG (27.0-34.0); MEAN CORPUSCULAR HGB CONC 32.7 % (32.0-36.0); MEAN PLATELET VOLUME 6.5 FL (7.0-11.0); MONO % 4.3 % (0.0-8.0); MONOCYTE # 0.4 TH/MM3 (0-0.9); NEUT % 86.9 % (16.0-70.0); PLATELET COUNT 168 TH/MM3 (150-450); RED BLOOD COUNT 2.28 MIL/MM3 (4.00-5.30); RED CELL DISTRIBUTION WIDTH 15.7 % (11.6-17.2); WHITE BLOOD COUNT 8.2 TH/MM3 (4.0-11.0)
[2018-02-01 06:30] LABS: ALBUMIN 2.6 GM/DL (3.4-5.0); ANION GAP 16 MEQ/L (5-15); AST (GOT) 21 U/L (15-37); BLOOD UREA NITROGEN 49 MG/DL (7-18); CALCIUM 7.7 MG/DL (8.5-10.1); CHLORIDE 98 MEQ/L (98-107); CREATININE 4.61 MG/DL (0.50-1.00); GLOMERULAR FILTRATION RATE 11 ML/MIN (>89); GLUCOSE,RANDOM 54 MG/DL (74-106); MAGNESIUM 1.8 MG/DL (1.5-2.5); POTASSIUM 4.6 MEQ/L (3.5-5.1); SODIUM (NA) 139 MEQ/L (136-145)
[2018-02-01 06:34] LABS: ALKALINE PHOSPHATASE 346 U/L (45-117); ALT (GPT) 14 U/L (10-53); PHOSPHORUS 5.4 MG/DL (2.5-4.9); RANDOM VANCOMYCIN 22.7 COMMENT; TOTAL BILIRUBIN ADULT 0.9 MG/DL (0.2-1.0); TOTAL PROTEIN 5.3 GM/DL (6.4-8.2)
[2018-02-01] MEDS: metroNIDAZOLE 500 MG INJ 100 ML IV ×2 (08:28→15:41)
[2018-02-01] MEDS: METOPROLOL TARTRATE 100 MG TAB PO (08:29)
[2018-02-01] MEDS: PANTOPRAZOLE SODIUM 40 MG VIAL IV PUSH (08:29)
[2018-02-01] MEDS: predniSONE 5 MG TAB PO (08:29)
[2018-02-01] MEDS: levETIRAcetam INJ 250 MG in SODIUM CHLORIDE 0.9% INJ 100 ML IV ×2 (08:29→21:00)
[2018-02-01] MEDS: DRONEDARONE 400 MG TAB PO ×2 (08:29→21:05)
[2018-02-01] MEDS: ALPRAZolam 0.25 MG TAB PO ×2 (08:30→18:38)
[2018-02-01] MEDS: APIXABAN 5 MG TABLET PO (08:31)
[2018-02-01] MEDS: AZITHROMYCIN INJ 500 MG in SODIUM CHLOR 0.9% 250 ML INJ 250 ML IV (11:09)
[2018-02-01] MEDS: FLUCONAZOLE 200 MG PREMIX BAG 100 ML IV (12:28)
[2018-02-01] MEDS: DEXTROSE 10% INJ 1,000 ML IV (13:46)
[2018-02-01] MEDS: CEFEPIME INJ 1,000 MG in SODIUM CHLORIDE 0.9% INJ 100 ML IV (14:57)
[2018-02-01 18:52] LABS: BASOPHIL % 0.4 % (0.0-2.0); EOSINOPHIL % 0.2 % (0.0-4.0); HEMATOCRIT 21.3 % (35.0-46.0); LYMPH % 8.1 % (9.0-44.0); LYMPHOCYTE # 0.5 TH/MM3 (1.0-4.8); MEAN CELL VOLUME 101.8 FL (80.0-100.0); MEAN CORPUSCULAR HEMOGLOBIN 33.1 PG (27.0-34.0); MEAN CORPUSCULAR HGB CONC 32.5 % (32.0-36.0); MEAN PLATELET VOLUME 6.7 FL (7.0-11.0); MONO % 4.4 % (0.0-8.0); MONOCYTE # 0.2 TH/MM3 (0-0.9); NEUT % 86.9 % (16.0-70.0); PLATELET COUNT 148 TH/MM3 (150-450); RED BLOOD COUNT 2.09 MIL/MM3 (4.00-5.30); RED CELL DISTRIBUTION WIDTH 15.7 % (11.6-17.2); WHITE BLOOD COUNT 5.7 TH/MM3 (4.0-11.0)
[2018-02-01 18:59] LABS: HEMO FLAGS AUTO DIFF
[2018-02-01 19:08] LABS: HEMOGLOBIN 6.9 GM/DL (11.6-15.3)
[2018-02-01 19:14] LABS: INTERNATIONAL NORMALIZED RATIO 1.6 RATIO; PROTHROMBIN TIME - PATIENT 15.9 SEC (9.8-11.6)
[2018-02-01 19:20] LABS: FIBRINOGEN 514 mg/dL (227-377)
[2018-02-01 20:01] LABS: BANDS 5 % (0-6); LYMPHOCYTES 6 % (9-44); METAMYELOCYTES 1 % (0-1); MONOCYTES 2 % (0-8); NEUTROPHIL # MANUAL DIFF 5.2 TH/MM3 (1.8-7.7); PLATELET ESTIMATE SMEAR LOW (NORMAL); PLATELET MORPHOLOGY NORMAL (NORMAL); POLYS (SEG NEUTROPHILS) 86 % (16-70); WBC DIFF SAMPLE 100
[2018-02-01 20:02] LABS: SCAN/DIFF FINAL DIFF MANUAL
[2018-02-01] MEDS: METOPROLOL TARTRATE 50 MG TAB PO (21:05)
[2018-02-02 01:16] LABS: RBC COMMENT 1 1
[2018-02-02] MEDS: RESP: ALBUTEROL 2.5 MG/IPRATROPIUM 0.5 MG NEB (SCH) INH ×4 (02:51→20:33)
[2018-02-02] MEDS: CHLORHEXIDINE GLUCONATE 2 % 1 PACK (2 CLOTHS) TOP (03:17)
[2018-02-02] MEDS: ALPRAZolam 0.25 MG TAB PO ×2 (05:27→21:04)
[2018-02-02] MEDS: LEVOTHYROXINE SODIUM 25 MCG TAB PO (05:27)
[2018-02-02 06:11] LABS: AUTOMATED NEUTROPHIL # 4.7 TH/MM3 (1.8-7.7); BASOPHIL % 0.7 % (0.0-2.0); EOSINOPHIL # 0.1 TH/MM3 (0-0.4); EOSINOPHIL % 1.3 % (0.0-4.0); HEMATOCRIT 22.7 % (35.0-46.0); HEMO FLAGS DIFF FINAL; HEMOGLOBIN 7.6 GM/DL (11.6-15.3); LYMPH % 8.2 % (9.0-44.0); LYMPHOCYTE # 0.5 TH/MM3 (1.0-4.8); MEAN CELL VOLUME 97.9 FL (80.0-100.0); MEAN CORPUSCULAR HEMOGLOBIN 32.7 PG (27.0-34.0); MEAN CORPUSCULAR HGB CONC 33.5 % (32.0-36.0); MEAN PLATELET VOLUME 6.5 FL (7.0-11.0); MONO % 5.2 % (0.0-8.0); MONOCYTE # 0.3 TH/MM3 (0-0.9); NEUT % 84.6 % (16.0-70.0); PLATELET COUNT 154 TH/MM3 (150-450); RED BLOOD COUNT 2.32 MIL/MM3 (4.00-5.30); RED CELL DISTRIBUTION WIDTH 17.5 % (11.6-17.2); WHITE BLOOD COUNT 5.5 TH/MM3 (4.0-11.0)
[2018-02-02 06:55] LABS: ALBUMIN 2.5 GM/DL (3.4-5.0); ALKALINE PHOSPHATASE 403 U/L (45-117); ALT (GPT) 12 U/L (10-53); ANION GAP 13 MEQ/L (5-15); AST (GOT) 17 U/L (15-37); BICARBONATE 27.3 MEQ/L (21.0-32.0); BLOOD UREA NITROGEN 64 MG/DL (7-18); CALCIUM 8.1 MG/DL (8.5-10.1); CHLORIDE 99 MEQ/L (98-107); CREATININE 5.91 MG/DL (0.50-1.00); GLOMERULAR FILTRATION RATE 8 ML/MIN (>89); GLUCOSE,RANDOM 104 MG/DL (74-106); MAGNESIUM 1.9 MG/DL (1.5-2.5); PHOSPHORUS 7.1 MG/DL (2.5-4.9); POTASSIUM 4.6 MEQ/L (3.5-5.1); RANDOM VANCOMYCIN 16.4 COMMENT; SODIUM (NA) 139 MEQ/L (136-145); TOTAL BILIRUBIN ADULT 1.3 MG/DL (0.2-1.0); TOTAL PROTEIN 5.3 GM/DL (6.4-8.2)
[2018-02-02] MEDS: metroNIDAZOLE 500 MG INJ 100 ML IV ×3 (08:00→15:40)
[2018-02-02] MEDS: predniSONE 5 MG TAB PO (08:44)
[2018-02-02] MEDS: levETIRAcetam INJ 250 MG in SODIUM CHLORIDE 0.9% INJ 100 ML IV ×3 (09:00→21:01)
[2018-02-02] MEDS: EPOETIN ALFA 10,000 UNITS/ML VIAL IV PUSH (11:38)
[2018-02-02] MEDS: PANTOPRAZOLE SODIUM 40 MG VIAL IV PUSH (12:13)
[2018-02-02] MEDS: METOPROLOL TARTRATE 100 MG TAB PO (12:14)
[2018-02-02] MEDS: cloNIDine HCL 0.1 MG TAB PO ×2 (12:14→21:01)
[2018-02-02] MEDS: DRONEDARONE 400 MG TAB PO ×2 (12:14→21:01)
[2018-02-02] MEDS: AZITHROMYCIN INJ 500 MG in SODIUM CHLOR 0.9% 250 ML INJ 250 ML IV (12:15)
[2018-02-02] MEDS: ACETAMINOPHEN 325 MG TAB PO (12:19)
[2018-02-02] MEDS: FLUCONAZOLE 200 MG PREMIX BAG 100 ML IV (13:19)
[2018-02-02] MEDS: CEFEPIME INJ 1,000 MG in SODIUM CHLORIDE 0.9% INJ 100 ML IV (14:46)
[2018-02-02 18:05] LABS: BASOPHIL % 0.2 % (0.0-2.0); EOSINOPHIL % 0.3 % (0.0-4.0); HEMATOCRIT 21.6 % (35.0-46.0); HEMO FLAGS DIFF FINAL; HEMOGLOBIN 7.1 GM/DL (11.6-15.3); LYMPH % 9.5 % (9.0-44.0); LYMPHOCYTE # 0.3 TH/MM3 (1.0-4.8); MEAN CELL VOLUME 98.7 FL (80.0-100.0); MEAN CORPUSCULAR HEMOGLOBIN 32.4 PG (27.0-34.0); MEAN CORPUSCULAR HGB CONC 32.8 % (32.0-36.0); MEAN PLATELET VOLUME 6.9 FL (7.0-11.0); MONO % 5.4 % (0.0-8.0); MONOCYTE # 0.2 TH/MM3 (0-0.9); NEUT % 84.6 % (16.0-70.0); PLATELET COUNT 142 TH/MM3 (150-450); RED BLOOD COUNT 2.19 MIL/MM3 (4.00-5.30); RED CELL DISTRIBUTION WIDTH 17.5 % (11.6-17.2); WHITE BLOOD COUNT 3.6 TH/MM3 (4.0-11.0)
[2018-02-02 20:59] LABS: LEGIONELLA ABS Negative (Negative); MYCOPLASMA PNEUMONIAE IGG Negative (Negative); MYCOPLASMA PNEUMONIAE IGM Negative (Negative)
[2018-02-02] MEDS: METOPROLOL TARTRATE 50 MG TAB PO (21:02)
[2018-02-02] MEDS: SODIUM CHLORIDE 0.9% FLUSH 10 ML FLUSH IV FLUSH (21:02)
[2018-02-03] MEDS: metroNIDAZOLE 500 MG INJ 100 ML IV ×3 (00:39→17:10)
[2018-02-03] MEDS: RESP: ALBUTEROL 2.5 MG/IPRATROPIUM 0.5 MG NEB (SCH) INH ×4 (03:51→20:36)
[2018-02-03] MEDS: CHLORHEXIDINE GLUCONATE 2 % 1 PACK (2 CLOTHS) TOP (04:00)
[2018-02-03 04:30] LABS: AUTOMATED NEUTROPHIL # 2.9 TH/MM3 (1.8-7.7); BASOPHIL % 0.2 % (0.0-2.0); EOSINOPHIL # 0.1 TH/MM3 (0-0.4); EOSINOPHIL % 1.8 % (0.0-4.0); LYMPH % 10.2 % (9.0-44.0); LYMPHOCYTE # 0.4 TH/MM3 (1.0-4.8); MEAN CELL VOLUME 96.7 FL (80.0-100.0); MEAN CORPUSCULAR HEMOGLOBIN 32.7 PG (27.0-34.0); MEAN CORPUSCULAR HGB CONC 33.8 % (32.0-36.0); MEAN PLATELET VOLUME 6.6 FL (7.0-11.0); MONO % 6.9 % (0.0-8.0); MONOCYTE # 0.2 TH/MM3 (0-0.9); NEUT % 80.9 % (16.0-70.0); PLATELET COUNT 151 TH/MM3 (150-450); RED BLOOD COUNT 2.12 MIL/MM3 (4.00-5.30); RED CELL DISTRIBUTION WIDTH 17.7 % (11.6-17.2); WHITE BLOOD COUNT 3.5 TH/MM3 (4.0-11.0)
[2018-02-03 04:41] LABS: HEMO FLAGS AUTO DIFF
[2018-02-03 04:43] LABS: HEMATOCRIT 20.5 % (35.0-46.0); HEMOGLOBIN 6.9 GM/DL (11.6-15.3)
[2018-02-03 04:50] LABS: ALBUMIN 2.3 GM/DL (3.4-5.0); ALKALINE PHOSPHATASE 334 U/L (45-117); ALT (GPT) 11 U/L (10-53); ANION GAP 10 MEQ/L (5-15); AST (GOT) 8 U/L (15-37); BICARBONATE 29.8 MEQ/L (21.0-32.0); BLOOD UREA NITROGEN 36 MG/DL (7-18); CALCIUM 7.7 MG/DL (8.5-10.1); CHLORIDE 100 MEQ/L (98-107); CREATININE 4.44 MG/DL (0.50-1.00); GLOMERULAR FILTRATION RATE 12 ML/MIN (>89); GLUCOSE,RANDOM 110 MG/DL (74-106); MAGNESIUM 1.7 MG/DL (1.5-2.5); PHOSPHORUS 4.6 MG/DL (2.5-4.9); POTASSIUM 3.8 MEQ/L (3.5-5.1); RANDOM VANCOMYCIN 11.3 COMMENT; SODIUM (NA) 140 MEQ/L (136-145); TOTAL BILIRUBIN ADULT 0.8 MG/DL (0.2-1.0); TOTAL PROTEIN 5.2 GM/DL (6.4-8.2)
[2018-02-03] MEDS: LEVOTHYROXINE SODIUM 25 MCG TAB PO (05:46)
[2018-02-03 07:10] LABS: BANDS 4 % (0-6); EOSINOPHILS 3 % (0-4); LYMPHOCYTES 10 % (9-44); MONOCYTES 6 % (0-8); NEUTROPHIL # MANUAL DIFF 2.8 TH/MM3 (1.8-7.7); OVALOCYTES 1+ (NORMAL); PLATELET ESTIMATE SMEAR NORMAL (NORMAL); PLATELET MORPHOLOGY NORMAL (NORMAL); POLYS (SEG NEUTROPHILS) 77 % (16-70); WBC DIFF SAMPLE 100
[2018-02-03 07:11] LABS: SCAN/DIFF FINAL DIFF MANUAL
[2018-02-03 08:11] LABS: RBC COMMENT 1 1
[2018-02-03] MEDS: METOPROLOL TARTRATE 100 MG TAB PO (08:20)
[2018-02-03] MEDS: cloNIDine HCL 0.1 MG TAB PO ×3 (08:20→20:26)
[2018-02-03] MEDS: DRONEDARONE 400 MG TAB PO ×2 (08:20→20:26)
[2018-02-03] MEDS: PANTOPRAZOLE SODIUM 40 MG VIAL IV PUSH (08:20)
[2018-02-03] MEDS: predniSONE 5 MG TAB PO (08:20)
[2018-02-03] MEDS: SODIUM CHLOR 0.9% 250 ML INJ 250 ML IV (08:24)
[2018-02-03] MEDS: FLUCONAZOLE 200 MG TAB PO (11:59)
[2018-02-03] MEDS: levETIRAcetam INJ 250 MG in SODIUM CHLORIDE 0.9% INJ 100 ML IV ×2 (12:00→20:25)
[2018-02-03 14:31] LABS: C. DIFF EPI 027 PRESUMPTIVE NEGATIVE (NEGATIVE); C. DIFF TOXIN PCR NEGATIVE (NEGATIVE)
[2018-02-03] MEDS: AZITHROMYCIN 250 MG TAB PO (15:59)
[2018-02-03] MEDS: CEFEPIME INJ 1,000 MG in SODIUM CHLORIDE 0.9% INJ 100 ML IV (15:59)
[2018-02-03] MEDS: DEXTROSE 10% INJ 500 ML IV (20:25)
[2018-02-03] MEDS: ALPRAZolam 0.25 MG TAB PO (20:26)
[2018-02-03] MEDS: METOPROLOL TARTRATE 50 MG TAB PO (20:26)
[2018-02-03] MEDS: SODIUM CHLORIDE 0.9% FLUSH 10 ML FLUSH IV FLUSH (20:27)
[2018-02-04] MEDS: metroNIDAZOLE 500 MG INJ 100 ML IV ×4 (00:37→23:45)
[2018-02-04] MEDS: cloNIDine HCL 0.1 MG TAB PO ×4 (00:37→22:11)
[2018-02-04] MEDS: ALPRAZolam 0.5 MG TAB PO (02:42)
[2018-02-04 03:36] LABS: AUTOMATED NEUTROPHIL # 2.6 TH/MM3 (1.8-7.7); BASOPHIL % 0.4 % (0.0-2.0); EOSINOPHIL # 0.1 TH/MM3 (0-0.4); EOSINOPHIL % 2.3 % (0.0-4.0); HEMATOCRIT 24.1 % (35.0-46.0); HEMO FLAGS DIFF FINAL; HEMOGLOBIN 8.2 GM/DL (11.6-15.3); LYMPH % 10.5 % (9.0-44.0); LYMPHOCYTE # 0.3 TH/MM3 (1.0-4.8); MEAN CELL VOLUME 95.9 FL (80.0-100.0); MEAN CORPUSCULAR HEMOGLOBIN 32.6 PG (27.0-34.0); MONOCYTE # 0.3 TH/MM3 (0-0.9); NEUT % 77.8 % (16.0-70.0); PLATELET COUNT 151 TH/MM3 (150-450); RED BLOOD COUNT 2.51 MIL/MM3 (4.00-5.30); RED CELL DISTRIBUTION WIDTH 18.4 % (11.6-17.2); WHITE BLOOD COUNT 3.3 TH/MM3 (4.0-11.0)
[2018-02-04] MEDS: RESP: ALBUTEROL 2.5 MG/IPRATROPIUM 0.5 MG NEB (SCH) INH ×3 (03:38→14:54)
[2018-02-04 03:47] LABS: ALBUMIN 2.2 GM/DL (3.4-5.0); ALKALINE PHOSPHATASE 408 U/L (45-117); ALT (GPT) 11 U/L (10-53); ANION GAP 11 MEQ/L (5-15); AST (GOT) 17 U/L (15-37); BICARBONATE 27.5 MEQ/L (21.0-32.0); BLOOD UREA NITROGEN 50 MG/DL (7-18); CALCIUM 7.3 MG/DL (8.5-10.1); CALCIUM-PROTEIN CORRECTED 8.5 MG/DL (8.5-10.1); CHLORIDE 102 MEQ/L (98-107); CREATININE 5.41 MG/DL (0.50-1.00); FERRITIN 724 NG/ML (8-252); GLOMERULAR FILTRATION RATE 9 ML/MIN (>89); GLUCOSE,RANDOM 133 MG/DL (74-106); IRON (FE) 49 MCG/DL (50-170); MAGNESIUM 1.7 MG/DL (1.5-2.5); PHOSPHORUS 4.5 MG/DL (2.5-4.9); SODIUM (NA) 140 MEQ/L (136-145); TOTAL BILIRUBIN ADULT 0.6 MG/DL (0.2-1.0); TOTAL IRON BINDING CAPACITY 144 MCG/DL (250-450); TRANSFERRIN IRON PROFILE 103 MG/DL (200-360)
[2018-02-04 03:50] LABS: C PNEUMO IGA <1:16 (<1:16); C PNEUMO IGG <1:64 (<1:64); C PNEUMO IGM <1:10 (<1:10)
[2018-02-04] MEDS: CHLORHEXIDINE GLUCONATE 2 % 1 PACK (2 CLOTHS) TOP (04:00)
[2018-02-04] MEDS: LEVOTHYROXINE SODIUM 25 MCG TAB PO (04:32)
[2018-02-04] MEDS: METOPROLOL TARTRATE 100 MG TAB PO (09:00)
[2018-02-04] MEDS: levETIRAcetam 250 MG TAB PO ×2 (09:00→22:10)
[2018-02-04] MEDS: NIFEdipine 30 MG SUSTAINED RELEASE TAB PO (09:00)
[2018-02-04] MEDS: DRONEDARONE 400 MG TAB PO ×2 (09:00→22:10)
[2018-02-04] MEDS: AZITHROMYCIN 250 MG TAB PO (09:00)
[2018-02-04] MEDS: EPOETIN ALFA 10,000 UNITS/ML VIAL IV PUSH (16:36)
[2018-02-04] MEDS: GELATIN 12 MM/7 MM FOAM TOP (16:36)
[2018-02-04] MEDS: CEFEPIME INJ 1,000 MG in SODIUM CHLORIDE 0.9% INJ 100 ML IV (19:01)
[2018-02-04] MEDS: METOPROLOL TARTRATE 50 MG TAB PO (19:02)
[2018-02-04] MEDS: PANTOPRAZOLE SODIUM 40 MG VIAL IV PUSH (19:02)
[2018-02-04] MEDS: predniSONE 5 MG TAB PO (19:02)
[2018-02-04] MEDS: FLUCONAZOLE 200 MG TAB PO (19:03)
[2018-02-04] MEDS: DEXTROSE 10% INJ 500 ML IV (22:13)
[2018-02-04] MEDS: ALPRAZolam 0.25 MG TAB PO (22:16)
[2018-02-05] MEDS: CHLORHEXIDINE GLUCONATE 2 % 1 PACK (2 CLOTHS) TOP (04:00)
[2018-02-05] MEDS: ALPRAZolam 0.25 MG TAB PO ×2 (05:52→15:01)
[2018-02-05] MEDS: LEVOTHYROXINE SODIUM 25 MCG TAB PO (05:52)
[2018-02-05 06:03] LABS: AUTOMATED NEUTROPHIL # 2.7 TH/MM3 (1.8-7.7); BASOPHIL % 0.6 % (0.0-2.0); EOSINOPHIL # 0.1 TH/MM3 (0-0.4); EOSINOPHIL % 2.9 % (0.0-4.0); HEMO FLAGS DIFF FINAL; HEMOGLOBIN 8.1 GM/DL (11.6-15.3); LYMPH % 13.1 % (9.0-44.0); LYMPHOCYTE # 0.5 TH/MM3 (1.0-4.8); MEAN CELL VOLUME 94.8 FL (80.0-100.0); MEAN CORPUSCULAR HEMOGLOBIN 32.2 PG (27.0-34.0); MEAN CORPUSCULAR HGB CONC 33.9 % (32.0-36.0); MEAN PLATELET VOLUME 6.3 FL (7.0-11.0); MONO % 10.6 % (0.0-8.0); MONOCYTE # 0.4 TH/MM3 (0-0.9); NEUT % 72.8 % (16.0-70.0); PLATELET COUNT 183 TH/MM3 (150-450); RED BLOOD COUNT 2.53 MIL/MM3 (4.00-5.30); RED CELL DISTRIBUTION WIDTH 17.6 % (11.6-17.2); WHITE BLOOD COUNT 3.7 TH/MM3 (4.0-11.0)
[2018-02-05 06:36] LABS: ALBUMIN 2.4 GM/DL (3.4-5.0); ALKALINE PHOSPHATASE 394 U/L (45-117); ALT (GPT) 8 U/L (10-53); ANION GAP 11 MEQ/L (5-15); AST (GOT) 10 U/L (15-37); BICARBONATE 28.5 MEQ/L (21.0-32.0); BLOOD UREA NITROGEN 33 MG/DL (7-18); CALCIUM 7.5 MG/DL (8.5-10.1); CHLORIDE 101 MEQ/L (98-107); CREATININE 3.97 MG/DL (0.50-1.00); GLOMERULAR FILTRATION RATE 13 ML/MIN (>89); GLUCOSE,RANDOM 110 MG/DL (74-106); MAGNESIUM 1.6 MG/DL (1.5-2.5); PHOSPHORUS 2.9 MG/DL (2.5-4.9); POTASSIUM 3.7 MEQ/L (3.5-5.1); SODIUM (NA) 140 MEQ/L (136-145); TOTAL BILIRUBIN ADULT 0.6 MG/DL (0.2-1.0)
[2018-02-05] MEDS: metroNIDAZOLE 500 MG INJ 100 ML IV ×2 (08:00→16:30)
[2018-02-05] MEDS: predniSONE 5 MG TAB PO (10:47)
[2018-02-05] MEDS: METOPROLOL TARTRATE 100 MG TAB PO (10:47)
[2018-02-05] MEDS: FLUCONAZOLE 200 MG TAB PO (10:47)
[2018-02-05] MEDS: cloNIDine HCL 0.1 MG TAB PO ×2 (10:47→21:45)
[2018-02-05] MEDS: DRONEDARONE 400 MG TAB PO ×2 (10:47→21:45)
[2018-02-05] MEDS: AZITHROMYCIN 250 MG TAB PO (10:47)
[2018-02-05] MEDS: levETIRAcetam 250 MG TAB PO ×2 (10:47→21:45)
[2018-02-05] MEDS: NIFEdipine 30 MG SUSTAINED RELEASE TAB PO (10:47)
[2018-02-05] MEDS: PANTOPRAZOLE SODIUM 40 MG VIAL IV PUSH (10:48)
[2018-02-05] MEDS: CEFEPIME INJ 1,000 MG in SODIUM CHLORIDE 0.9% INJ 100 ML IV (15:02)
[2018-02-05] MEDS: DEXTROSE 10% INJ 500 ML IV (20:30)
[2018-02-05] MEDS: METOPROLOL TARTRATE 50 MG TAB PO (21:45)
[2018-02-06] MEDS: metroNIDAZOLE 500 MG INJ 100 ML IV ×2 (01:06→08:52)
[2018-02-06 03:35] LABS: HEMATOCRIT 24.1 % (35.0-46.0); HEMOGLOBIN 8.2 GM/DL (11.6-15.3); MEAN CELL VOLUME 96.1 FL (80.0-100.0); MEAN CORPUSCULAR HEMOGLOBIN 32.5 PG (27.0-34.0); MEAN CORPUSCULAR HGB CONC 33.9 % (32.0-36.0); MEAN PLATELET VOLUME 6.6 FL (7.0-11.0); PLATELET COUNT 189 TH/MM3 (150-450); RED BLOOD COUNT 2.51 MIL/MM3 (4.00-5.30); RED CELL DISTRIBUTION WIDTH 17.1 % (11.6-17.2); WHITE BLOOD COUNT 4.2 TH/MM3 (4.0-11.0)
[2018-02-06 03:38] LABS: REVIEW FLAG FINAL
[2018-02-06] MEDS: CHLORHEXIDINE GLUCONATE 2 % 1 PACK (2 CLOTHS) TOP (04:00)
[2018-02-06 04:04] LABS: ANION GAP 9 MEQ/L (5-15); BICARBONATE 29.8 MEQ/L (21.0-32.0); BLOOD UREA NITROGEN 42 MG/DL (7-18); CALCIUM 7.6 MG/DL (8.5-10.1); CHLORIDE 103 MEQ/L (98-107); CREATININE 5.22 MG/DL (0.50-1.00); GLOMERULAR FILTRATION RATE 10 ML/MIN (>89); GLUCOSE,RANDOM 100 MG/DL (74-106); POTASSIUM 4.1 MEQ/L (3.5-5.1); SODIUM (NA) 142 MEQ/L (136-145)
[2018-02-06] MEDS: LEVOTHYROXINE SODIUM 25 MCG TAB PO (05:46)
[2018-02-06] MEDS: levETIRAcetam 250 MG TAB PO (08:50)
[2018-02-06] MEDS: cloNIDine HCL 0.1 MG TAB PO (08:51)
[2018-02-06] MEDS: METOPROLOL TARTRATE 100 MG TAB PO (08:51)
[2018-02-06] MEDS: DRONEDARONE 400 MG TAB PO (08:51)
[2018-02-06] MEDS: predniSONE 5 MG TAB PO (08:51)
[2018-02-06] MEDS: AZITHROMYCIN 250 MG TAB PO (08:51)
[2018-02-06] MEDS: NIFEdipine 30 MG SUSTAINED RELEASE TAB PO (08:51)
[2018-02-06] MEDS: FLUCONAZOLE 200 MG TAB PO (08:51)
[2018-02-06] MEDS: PANTOPRAZOLE SODIUM 40 MG VIAL IV PUSH (08:52)
[2018-02-06] MEDS: ALPRAZolam 0.25 MG TAB PO (09:07)
[2018-02-06] MEDS ORDERED: CEFUROXIME AXETIL 250 MG TAB PO (11:00)
== END 2018-02-06 14:44 | disposition home or self-care (01) | DRG 189 ==
LOC: N04B 02-04 20:33 → NEPE 10:03 → NEDA 12:35 → HIMN 20:35
PROC: 5A09357 Assistance with Respiratory Ventilation, Less than 24 Consecutive Hours, Continuous Positive Airway Pressure (ICD-10-PCS; 2018-01-31)
PROC: 5A1D70Z Performance of Urinary Filtration, Intermittent, Less than 6 Hours Per Day (ICD-10-PCS; 2018-01-31)
PROC: 30233N1 Transfusion of Nonautologous Red Blood Cells into Peripheral Vein, Percutaneous Approach (ICD-10-PCS; principal; 2018-02-02)
DX: J96.01 Acute respiratory failure with hypoxia (principal); J81.0 Acute pulmonary edema; T86.12 Kidney transplant failure; J18.9 Pneumonia, unspecified organism; B37.89 Other sites of candidiasis; N18.6 End stage renal disease; I12.0 Hypertensive chronic kidney disease with stage 5 chronic kidney disease or end stage renal disease; E87.1 Hypo-osmolality and hyponatremia; D62 Acute posthemorrhagic anemia; Y83.0 Surgical operation with transplant of whole organ as the cause of abnormal reaction of the patient, or of later complication, without mention of misadventure at the time of the procedure; E87.70 Fluid overload, unspecified; R04.0 Epistaxis; K21.9 Gastro-esophageal reflux disease without esophagitis; I48.91 Unspecified atrial fibrillation; G40.909 Epilepsy, unspecified, not intractable, without status epilepticus; E87.5 Hyperkalemia; E16.2 Hypoglycemia, unspecified; E03.9 Hypothyroidism, unspecified; R11.2 Nausea with vomiting, unspecified; Z99.2 Dependence on renal dialysis; Z87.01 Personal history of pneumonia (recurrent); Z86.73 Personal history of transient ischemic attack (TIA), and cerebral infarction without residual deficits; Z79.01 Long term (current) use of anticoagulants; Z79.52 Long term (current) use of systemic steroids
CPT/HCPCS: 36430; 36600; 71045; 80048; 80053; 80074; 80202; 82550; 82552; 82728; 82805; 82948; 83540; 83550; 83605; 83735; 83880; 84100; 84155; 84484; 85007; 85025; 85027; 85384; 85610; 85730; 86631; 86631-59; 86632; 86713; 86713-59; 86738; 86738-59; 86850; 86900; 86901; 86920; 86922; 87040; 87493; 87641; 90935; 93005; 93306; 94002; 94640; 94664; 96365; 96374; 96375; 99291-25